=== PATIENT | female | born 1960 | race Caucasian/White ===

== ENCOUNTER 2019-11-29 12:31 | Outpatient (REF) | payer OTHER, SELFPAY | END 2019-11-29 12:32 | disposition home or self-care (01) | LOC: HO.LNP 12:31 | PROVIDERS: Visit Provider Podiatrist | DX: E10.42 Type 1 diabetes mellitus with diabetic polyneuropathy (principal); L97.512 Non-pressure chronic ulcer of other part of right foot with fat layer exposed | CPT/HCPCS: 87071; 87205 ==

== ENCOUNTER → 2019-12-11 10:28 | Outpatient (BNVA) | payer OTHER, SELFPAY | PROVIDERS: Visit Provider Internal Medicine | DX: Z76.89 Persons encountering health services in other specified circumstances (principal) ==

== ENCOUNTER → 2019-12-16 07:38 | Outpatient (BNVA) | payer OTHER, SELFPAY | PROVIDERS: Visit Provider Internal Medicine Endocrinology, Diabetes & Metabolism | DX: Z76.89 Persons encountering health services in other specified circumstances (principal) ==

== ENCOUNTER 2019-12-28 08:49 | Outpatient (REF) | payer OTHER, SELFPAY ==
--- NOTE | 2019-12-28 | XR_ITS ---
EXAMINATION: X-RAYS OF THE RIGHT FOOT AND ANKLE. CLINICAL INFORMATION: 59-year-old female patient with history of Charcot foot. Right foot pain. COMPARISON: X-ray of the right foot and ankle on 05/27/2019 and right foot on 11/10/2019. TECHNIQUE: 5 views of the right foot and ankle. FINDINGS: Again, there is diffuse soft tissue swelling of the distal right leg, ankle, and foot. Mature periosteal reaction parallels the distal shafts of the right tibia and fibula. Severe joint obliteration with marked hyperostosis and proliferative bone formation involves the midfoot and base of the metatarsals consistent with a Charcot foot. No acute osteolytic reaction is appreciated in either the foot or the ankle joint. XR/XR ankle RT min 3V IMPRESSION: Charcot foot.
--- NOTE | 2019-12-28 | XR_ITS ---
EXAMINATION: X-RAYS OF THE RIGHT FOOT AND ANKLE. CLINICAL INFORMATION: 59-year-old female patient with history of Charcot foot. Right foot pain. COMPARISON: X-ray of the right foot and ankle on 05/27/2019 and right foot on 11/10/2019. TECHNIQUE: 5 views of the right foot and ankle. FINDINGS: Again, there is diffuse soft tissue swelling of the distal right leg, ankle, and foot. Mature periosteal reaction parallels the distal shafts of the right tibia and fibula. Severe joint obliteration with marked hyperostosis and proliferative bone formation involves the midfoot and base of the metatarsals consistent with a Charcot foot. No acute osteolytic reaction is appreciated in either the foot or the ankle joint. XR/XR foot RT min 3V IMPRESSION: Charcot foot.
== END 2019-12-28 08:50 | disposition home or self-care (01) ==
LOC: HO.LAB 08:49
PROVIDERS: PCP Internal Medicine; Visit Provider Internal Medicine Endocrinology, Diabetes & Metabolism
DX: E11.610 Type 2 diabetes mellitus with diabetic neuropathic arthropathy (principal)
CPT/HCPCS: 73610; 73630

== ENCOUNTER 2020-02-27 10:35 | Outpatient (REF) | payer OTHER, SELFPAY ==
[2020-02-27 12:21] LABS: MANUAL DIFF FLAG NO
[2020-02-27 12:27] LABS: Basophils Percent Auto 0.3 % (0-2); Eosinophils Absolute Auto 0.3 X10*3/uL (0.0-0.4); Eosinophils Percent Auto 2.9 % (0-4); Hematocrit 31.6 % (37-47); Hemoglobin 9.9 g/dl (12.0-16.0); Imm Gran Abs Auto 0.08 X10*3/uL (0.00-0.03); Imm Gran Pct Auto 0.7 % (0.0-0.4); Lymphocytes Absolute Auto 2.7 X10*3/uL (1.2-4.9); Lymphocytes Percent Auto 24.7 % (20-40); Mean Corpuscular HGB Conc 31.3 g/dl (31.0-35.0); Mean Corpuscular Hemoglobin 26.7 pg (27.0-33.0); Mean Corpuscular Volume 85.2 fL (80-98); Mean Platelet Volume 9.6 fL (9.4-12.3); Monocytes Absolute Auto 0.6 X10*3/uL (0.1-1.2); Neutrophils Absolute Auto 7.3 X10*3/uL (2.0-8.3); Neutrophils Percent Auto 66.4 % (45-73); Platelet Count 555 X10*3/uL (160-400); Red Blood Count 3.71 X10*6/uL (4.20-5.50); Red Cell Distribution Width 14.1 % (11.0-16.0)
[2020-02-27 13:01] LABS: Alanine Aminotransferase 10 U/L (0-31); Albumin Level 3.9 g/dL (3.5-5.0); Alkaline Phosphatase 101 U/L (39-117); Anion Gap 14 (12-20); Aspartate Amino Transferase 12 U/L (5-31); Bilirubin Total 0.3 mg/dL (0.0-1.0); Blood Urea Nitrogen 28 mg/dL (9-16); Calcium 9.1 mg/dL (8.4-10.2); Carbon Dioxide 27 mmol/L (22-29); Chloride 105 mmol/L (96-108); Estimated Glomerular Filt Rate 41; Glucose Fasting 84 mg/dL (60-99); Potassium 4.7 mmol/l (3.3-5.1); Sodium 141 mmol/L (135-145)
[2020-02-27 13:06] LABS: Cholesterol 153 mg/dL; HDL Cholesterol 41 mg/dL; LDL Cholesterol Calculated 69 mg/dl; Triglycerides 217 mg/dL
[2020-02-27 13:07] LABS: Creatinine Urine 58.22 mg/dL
[2020-02-27 13:09] LABS: Creatinine Urine 58.73 mg/dL
[2020-02-27 13:23] LABS: Ferritin 103 ng/mL (10-250); Thyroid Stimulating Hormone 0.61 uIU/mL (0.32-4.0)
[2020-02-27 13:24] LABS: Protein/Creatinine Ratio, Ur 3.85 (<0.2); Total Protein Urine Random 226 mg/dL (<12)
[2020-02-27 13:28] LABS: Vitamin B12 1509 pg/mL (200-900)
[2020-02-27 13:50] LABS: Estimated Average Glucose 166 mg/dL; Hemoglobin A1c % 7.4 %
[2020-02-28 06:17] LABS: LDL Cholesterol Direct 73 mg/dL (<100)
== END 2020-02-27 10:36 | disposition home or self-care (01) ==
LOC: HO.LAB 10:35
PROVIDERS: Absent Provider Internal Medicine; PCP Internal Medicine; Visit Provider Internal Medicine Endocrinology, Diabetes & Metabolism
DX: Z00.01 Encounter for general adult medical examination with abnormal findings (principal); E11.65 Type 2 diabetes mellitus with hyperglycemia; E11.40 Type 2 diabetes mellitus with diabetic neuropathy, unspecified; E11.621 Type 2 diabetes mellitus with foot ulcer; E11.22 Type 2 diabetes mellitus with diabetic chronic kidney disease; I12.9 Hypertensive chronic kidney disease with stage 1 through stage 4 chronic kidney disease, or unspecified chronic kidney disease; N18.9 Chronic kidney disease, unspecified; D63.1 Anemia in chronic kidney disease
CPT/HCPCS: 36415; 80053; 80061; 82043; 82607; 82728; 83036; 83721; 84156; 84443; 85025

== ENCOUNTER → 2020-03-17 09:18 | Outpatient (BNVA) | payer OTHER, SELFPAY | PROVIDERS: PCP Internal Medicine; Referring Provider Internal Medicine; Visit Provider Internal Medicine Endocrinology, Diabetes & Metabolism ==

== ENCOUNTER → 2020-04-21 09:48 | Outpatient (BNVA) | payer OTHER, SELFPAY | PROVIDERS: PCP Internal Medicine; Visit Provider Internal Medicine ==

== ENCOUNTER 2020-05-27 10:42 | Outpatient (REF) | payer OTHER, SELFPAY ==
[2020-05-27 12:17] LABS: Alanine Aminotransferase 13 U/L (0-31); Albumin Level 3.8 g/dL (3.5-5.0); Alkaline Phosphatase 94 U/L (39-117); Anion Gap 12 (12-20); Aspartate Amino Transferase 14 U/L (5-31); Bilirubin Total 0.5 mg/dL (0.0-1.0); Blood Urea Nitrogen 29 mg/dL (9-16); Calcium 9.5 mg/dL (8.4-10.2); Carbon Dioxide 27 mmol/L (22-29); Chloride 106 mmol/L (96-108); Estimated Glomerular Filt Rate 40; Glucose Random 81 mg/dL (60-115); Potassium 5.1 mmol/L (3.3-5.1); Sodium 140 mmol/L (135-145)
[2020-05-27 14:25] LABS: Estimated Average Glucose 160 mg/dL; Hemoglobin A1c % 7.2 %
== END 2020-05-27 10:43 | disposition home or self-care (01) ==
LOC: HO.LAB 10:42
PROVIDERS: Absent Provider Internal Medicine Endocrinology, Diabetes & Metabolism; PCP Internal Medicine; Visit Provider Internal Medicine
DX: E11.22 Type 2 diabetes mellitus with diabetic chronic kidney disease (principal); I12.9 Hypertensive chronic kidney disease with stage 1 through stage 4 chronic kidney disease, or unspecified chronic kidney disease; E11.40 Type 2 diabetes mellitus with diabetic neuropathy, unspecified; E11.621 Type 2 diabetes mellitus with foot ulcer; N18.9 Chronic kidney disease, unspecified; D63.1 Anemia in chronic kidney disease; L97.509 Non-pressure chronic ulcer of other part of unspecified foot with unspecified severity
CPT/HCPCS: 36415; 80053; 83036

== ENCOUNTER → 2020-06-15 12:38 | Outpatient (BNVA) | payer OTHER, SELFPAY | PROVIDERS: PCP Internal Medicine; Visit Provider Internal Medicine Endocrinology, Diabetes & Metabolism | DX: E11.65 Type 2 diabetes mellitus with hyperglycemia (principal); E11.21 Type 2 diabetes mellitus with diabetic nephropathy; E11.319 Type 2 diabetes mellitus with unspecified diabetic retinopathy without macular edema; E11.40 Type 2 diabetes mellitus with diabetic neuropathy, unspecified; I10 Essential (primary) hypertension; E78.5 Hyperlipidemia, unspecified; E04.2 Nontoxic multinodular goiter | CPT/HCPCS: 82947 ==

== ENCOUNTER 2020-08-13 10:22 | Outpatient (REF) | payer OTHER, SELFPAY ==
[2020-08-13 11:37] LABS: MANUAL DIFF FLAG NO
[2020-08-13 11:49] LABS: Estimated Average Glucose 160 mg/dL; Hemoglobin A1c % 7.2 %
[2020-08-13 11:59] LABS: Alanine Aminotransferase 13 U/L (0-31); Albumin Level 3.8 g/dL (3.5-5.0); Alkaline Phosphatase 98 U/L (39-117); Anion Gap 15 (12-20); Aspartate Amino Transferase 17 U/L (5-31); Bilirubin Total 0.7 mg/dL (0.0-1.0); Blood Urea Nitrogen 34 mg/dL (9-16); Calcium 9.3 mg/dL (8.4-10.2); Carbon Dioxide 23 mmol/L (22-29); Chloride 107 mmol/L (96-108); Estimated Glomerular Filt Rate 41; Glucose Random 87 mg/dL (60-115); Potassium 4.7 mmol/L (3.3-5.1); Sodium 140 mmol/L (135-145); Total Protein 8.1 g/dL (6.5-8.0)
[2020-08-13 12:01] LABS: Basophils Percent Auto 0.3 % (0-2); Eosinophils Absolute Auto 0.2 X10*3/uL (0.0-0.4); Hematocrit 32.1 % (37-47); Hemoglobin 10.3 g/dl (12.0-16.0); Imm Gran Abs Auto 0.05 X10*3/uL (0.00-0.03); Imm Gran Pct Auto 0.5 % (0.0-0.4); Lymphocytes Absolute Auto 2.1 X10*3/uL (1.2-4.9); Lymphocytes Percent Auto 20.9 % (20-40); Mean Corpuscular HGB Conc 32.1 g/dl (31.0-35.0); Mean Corpuscular Hemoglobin 27.1 pg (27.0-33.0); Mean Corpuscular Volume 84.5 fL (80-98); Monocytes Absolute Auto 0.6 X10*3/uL (0.1-1.2); Monocytes Percent Auto 6.1 % (2-11); Neutrophils Absolute Auto 7.1 X10*3/uL (2.0-8.3); Neutrophils Percent Auto 70.2 % (45-73); Platelet Count 435 X10*3/uL (160-400); Red Cell Distribution Width 14.8 % (11.0-16.0); White Blood Count 10.1 X10*3/uL (4.8-10.8)
== END 2020-08-13 10:23 | disposition home or self-care (01) ==
LOC: HO.LAB 10:22
PROVIDERS: PCP Internal Medicine; Referring Provider Internal Medicine Endocrinology, Diabetes & Metabolism; Visit Provider Internal Medicine
DX: I12.9 Hypertensive chronic kidney disease with stage 1 through stage 4 chronic kidney disease, or unspecified chronic kidney disease (principal); N18.9 Chronic kidney disease, unspecified; D63.1 Anemia in chronic kidney disease; E11.22 Type 2 diabetes mellitus with diabetic chronic kidney disease; E11.621 Type 2 diabetes mellitus with foot ulcer; E11.40 Type 2 diabetes mellitus with diabetic neuropathy, unspecified; H61.22 Impacted cerumen, left ear
CPT/HCPCS: 36415; 80053; 83036; 85025

== ENCOUNTER 2020-08-19 18:29 | Inpatient (IN) | payer OTHER, SELFPAY ==
--- NOTE | ~2020-08-19 | XR_ITS ---
EXAMINATION: XR FOOT, RIGHT CLINICAL INFORMATION: Infection. COMPARISON: Right foot December 28, 2019. TECHNIQUE: AP, lateral, and oblique views of the right foot. FINDINGS: Stable chronic Charcot foot changes of the foot similar prior study of December 28, 2019. No acute abnormality. No bone destruction or abnormal periosteal reaction to suggest osteomyelitis. XR/XR foot RT 2V IMPRESSION: No radiographic evidence for osteomyelitis.
--- NOTE | ~2020-08-19 | US_ITS ---
EXAMINATION: BILATERAL LOWER EXTREMITY DUPLEX DOPPLER ARTERIAL EVALUATION. ALEXANDER. CLINICAL INFORMATION: Nonhealing right foot ulcer. COMPARISON: 09/30/2018 and 01/16/2018. TECHNIQUE: Real-time ultrasound and Doppler techniques (integrating B-mode 2D vascular images, Doppler spectral analysis and color flow Doppler imaging) were utilized to interrogate the lower extremities bilaterally. Attempted ABIs. FINDINGS: Within the right groin there is an enlarged lymph node measuring 4.5 x 2.0 x 4.7 cm in size but appears to have a normal fatty cleft and no definite cortical thickening is seen. RIGHT LOWER EXTREMITY: The right common femoral artery has a triphasic waveform with peak systolic velocity of 165 cm/s. The proximal profunda femoral artery has a biphasic waveform with peak systolic velocity of 67 cm/s. The proximal superficial femoral artery has a triphasic waveform with peak systolic velocity of 185 cm/s. The mid superficial femoral artery has a triphasic waveform with peak systolic velocity of 194 cm/s. The distal superficial femoral artery has a triphasic waveform with peak systolic velocity of 213 cm/s. The popliteal artery has a monophasic waveform with peak systolic velocity of 141 cm/s. The proximal peroneal artery has a monophasic waveform with peak systolic velocity of 139 cm/s. The distal posterior tibial artery has a monophasic waveform with peak systolic velocity of 87 cm/s. The proximal posterior tibial artery has a monophasic waveform with peak systolic velocity of 170 cm/s. LEFT LOWER EXTREMITY: Common femoral artery has a triphasic waveform with peak systolic velocity of 116 cm/s. The proximal profunda femoral artery has a biphasic waveform with peak systolic velocity of 81 cm/s. The proximal superficial femoral artery has a biphasic waveform with peak systolic velocity of 122 cm/s. The mid superficial femoral artery has a triphasic waveform with peak systolic velocity of 112 cm/s. The distal superficial femoral artery has a triphasic waveform with peak systolic velocity of 115 cm/s. The proximal popliteal artery has a biphasic waveform with peak systolic velocity of 69 cm/s. The proximal peroneal artery has a biphasic waveform with peak systolic velocity of 79 cm/s. The distal posterior tibial artery has a biphasic waveform with peak systolic velocity of 94 cm/s. The proximal posterior tibial artery has a biphasic waveform with peak systolic velocity of 104 cm/s. The ankle-brachial indices are limited in evaluation due to probable calcified vessels and elevated ankle pressures. Brachial artery pressure is 174 mmHg with only the right dorsalis pedis artery pressure being less than 200 mmHg and measuring 184 mmHg for a right-sided ALEXANDER of 1.06. US/US arterial duplex LE BI IMPRESSION: Inaccurate ABIs related to high ankle pressures probably related to calcified vessels. Elevated distal superficial femoral artery peak systolic velocity of greater than 200 mmHg consistent with hemodynamically significant stenosis. Bilateral calf runoff disease.
[2020-08-19 19:05] VITALS: BP 194/94; PULSE 96; RESP 18; TEMP 36.7; O2SAT 95; BMI 30.8
--- NOTE | 2020-08-19 20:14 | ED.GENADULT ---
HPI - General Adult General Chief complaint: General Medical Stated complaint: leg pain Time Seen by Provider: 08/19/20 20:13 Source: patient Limitations: no limitations History of Present Illness HPI narrative: this is a 51-year-old female with history of diabetes who has a known ulcer on the plantar aspect of her right foot. The patient was seen at wound clinic today and her foot was thought to be okay but the patient notes that she has had severe pain upon weight-bearing and feels like she cannot walk due to the pain. She denies any fever. The pain does radiate to her ankle. She has some chronic leg swelling but denies any acute change. She denies any chest pain or shortness of breath. The pain is aching, moderate in severity Related Data Home Medications Medication Instructions Recorded Confirmed atorvastatin 1 tab PO DAILY 08/19/20 08/19/20 ferrous sulfate 1 tab PO DAILY 08/19/20 08/19/20 flash glucose sensor [FreeStyle 08/19/20 08/19/20 Amber 14 Day Sensor] furosemide 1 tab PO BID 08/19/20 08/19/20 insulin glargine U-300 conc 48 unit SUBCUT DAILY 08/19/20 08/19/20 [[place] SoloStar U-300 Insulin] insulin lispro [Humalog KwikPen See Protocol SUBCUT TIDAC 08/19/20 08/19/20 Insulin] irbesartan 1 tab PO DAILY 08/19/20 08/19/20 pen needle, diabetic [BD Adela 2nd 08/19/20 08/19/20 Gen Pen Needle] Allergies Allergy/AdvReac Type Severity Reaction Status Date / Time amlodipine [From NORVASC] Allergy Mild SWELLING Verified 08/19/20 19:05 Cephalosporins Allergy Mild RASH Verified 08/19/20 19:05 [CEPHALOSPORINS] Penicillins Allergy Mild RASH Verified 08/19/20 19:05 Erythromycin Allergy Unknown Unknown Verified 08/19/20 19:05 clindamycin [CLINDAMYCIN] AdvReac Intermediate DIARRHEA Verified 08/19/20 19:05 NephrAmine Allergy Unknown swelling Uncoded 05/29/19 00:00 Review of Systems Review of Systems: Yes all other systems are reviewed and are negative Constitutional: Constitutional: Reports as per HPI and Denies fever(s) Eyes: Eyes: Reports as per HPI and Reports no additional eye complaints ENT: Reports system reviewed and no additional complaints, except as documented, Reports as per HPI, Denies nasal congestion, Denies nasal discharge and Denies sore throat Cardiovascular: Cardiovascular: Reports as per HPI, Denies chest pain and Denies dyspnea Respiratory: Respiratory: Reports as per HPI, Denies cough and Denies dyspnea Gastrointestinal: Gastrointestinal: Reports as per HPI, Denies abdominal pain, Denies diarrhea and Denies vomiting Genitourinary: Genitourinary: Reports as per HPI, Denies hematuria, Denies urinary frequency and Denies dysuria Musculoskeletal: Musculoskeletal: Reports no additional musculoskeletal complaints and Denies numbness Comments: right foot swelling but without significant erythema. Ulcer to the plantar aspect with malodorous discharge, the packing strip in place. Discharge expressible by pressure around the wound. Integumentary/Breasts: Skin/Breast: Reports as per HPI and Denies rash Neurologic: Reports as per HPI, Denies focal weakness, Denies numbness and Denies Sensory deficit (Neuro) Psychiatric: Psychiatric: Reports no additional psychiatric complaints and Reports as per HPI Endocrine: Endocrine: Reports no additional endocrine complaints and Reports as per HPI Hematologic/Lymphatic: Hematologic/Lymphatic: Reports no additional hematologic/lymphatic complaints, Reports as per HPI and Reports other (No peripheral edema) [facility]LY [facility] Past Medical History Medical History Diabetes type 2, uncontrolled Diabetic nephropathy associated with type 2 diabetes mellitus Diabetic neuropathy associated with type 2 diabetes mellitus Diabetic retinopathy associated with type 2 diabetes mellitus Dyslipidemia Foot osteomyelitis, right 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 senior care (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 insulin Non-toxic multinodular goiter Surgical History Hx of eye surgery Hx of foot surgery Family History Family History Father COPD (chronic obstructive pulmonary disease) Diabetes Mother Heart disease Social History Social History Household Members: None Smoked in Last 30 Days: No Use of substances other than those prescribed or required for medical reasons: No Advance Directives: No Advance Directives Information Provided: No Patient : No Physical Exam Vital Signs: Vital Signs: Last Vital Signs Temp 97.6 F 08/19/20 23:21 Pulse 75 08/19/20 23:21 Resp 18 08/19/20 23:21 BP 182/69 H 08/19/20 23:21 Pulse Ox 98 08/19/20 23:21 Body Mass Index 30.8 Const: General: cooperative, no acute distress and alert Orientation/consciousness: patient oriented x3 HENMT: Head: Yes normal to inspection Eyes: General: appearance normal, both eyes and all related structures Eyelids: Yes eyelids normal Conjunctivae: conjunctivae normal Pupils: Equal, round and reactive pupils present Neck: Neck: Yes normal visual inspection and Yes supple Chest: Chest palpation & inspection: normal inspection of the chest Resp: Effort & Inspection: normal respiratory effort Auscultation: clear to auscultation bilaterally Cardio: Rate: regular rate Rhythm: regular rhythm Heart sounds: S1 normal heart sound present, S2 normal heart sound present, no gallops, no murmurs and no rubs GI: Palpation (GI): Soft to palpation, nontender and Other GI palpation findings present (Non-distended) Auscultation: normal bowel sounds Skin: General skin exam: no rashes or lesions noted Neuro: General: patient oriented x3, no focal motor deficits and CN's II-XI intact bilaterally Cranial nerves: Yes Equal, round and reactive pupils present Cognition (Neuro): normal cognition Motor exam (neuro): 5/5 motor strength present throughout Sensory Exam: No Sensory deficit (Neuro) Extrem: General: Yes normal to inspection and Yes no pedal edema Right lower extremity: foot ( Right plantar foot with approximately 1 x 2 in ulcer with malodorous) Details: other ( Discharge. A saturated packing strip is in place. There is mild general swelling to the foot but no erythema or warmth. Dorsalis pedis pulse normal) Psych: Appearance: grossly normal Affect: normal affect Medical Decision Making MDM Narrative Medical decision making narrative: Patient with increasing pain to her right foot, has an ulcer to the plantar aspect with malodorous discharge. Patient is afebrile, nontoxic. White count only mildly elevated. Nonetheless given that her difficulty ambulating, I believe admission to the hospital for observation and starting IV antibiotics, surgical consult is warranted. Lab Data Result diagrams: 08/19/20 21:32 08/19/20 21:32 Labs: Lab Results 07/07/21 07/07/21 Range/Units 21:32 21:32 WBC 11.7 H (4.8-10.8) X10*3/uL RBC 3.25 L (4.20-5.50) X10*6/uL Hgb 9.0 L (12.0-16.0) g/dl Hct 27.3 L (37-47) % MCV 84.0 (80-98) fL MCH 27.7 (27.0-33.0) pg MCHC 33.0 (31.0-35.0) g/dl RDW 14.4 (11.0-16.0) % Plt Count 336 (160-400) X10*3/uL MPV 9.7 (9.4-12.3) fL Immature Gran % (Auto) 0.3 (0.0-0.4) % Neut % (Auto) 76.8 H (45-73) % Lymph % (Auto) 12.9 L (20-40) % [place] % (Auto) 8.3 (2-11) % Eos % (Auto) 1.4 (0-4) % Baso % (Auto) 0.3 (0-2) % Lymph # (Auto) 1.5 (1.2-4.9) X10*3/uL [place] # (Auto) 1.0 (0.1-1.2) X10*3/uL Eos # (Auto) 0.2 (0.0-0.4) X10*3/uL Baso # (Auto) 0.0 (0.0-0.2) X10*3/uL Abs Immat Gran (auto) 0.04 H (0.00-0.03) X10*3/uL Absolute Neuts (auto) 9.0 H (2.0-8.3) X10*3/uL Absolute Nucleated RBC 0.000 (0.0-0.012) X10*3/uL Nucleated RBC % (auto) 0.0 (0.0-0.2) /100WBC Sodium 139 (135-145) mmol/L Potassium 5.2 H (3.3-5.1) mmol/L Chloride 106 (96-108) mmol/L Carbon Dioxide 23 (22-29) mmol/L Anion Gap 15 (12-20) BUN 38 H (9-16) mg/dL Creatinine 1.63 H (0.5-1.4) mg/dL Estim Creat Clear Calc 41.7 Estimated GFR 32 Random Glucose 163 H D (60-115) mg/dL Calcium 8.9 (8.4-10.2) mg/dL Total Bilirubin 0.5 (0.0-1.0) mg/dL AST 17 (5-31) U/L ALT 16 (0-31) U/L Alkaline Phosphatase 94 (39-117) U/L Total Protein 7.4 (6.5-8.0) g/dL Albumin 3.4 L (3.5-5.0) g/dL Imaging Data foot: Radiologist's impression: x-ray of the right foot as read by the radiologist showed no evidence of osteomyelitis Discharge Plan Discharge Clinical Impression: Diabetic foot ulcer Patient Disposition: Admitted as Observation
[2020-08-19 21:37] LABS: MANUAL DIFF FLAG NO
[2020-08-19 21:38] LABS: Basophils Percent Auto 0.3 % (0-2); Eosinophils Absolute Auto 0.2 X10*3/uL (0.0-0.4); Eosinophils Percent Auto 1.4 % (0-4); Hematocrit 27.3 % (37-47); Imm Gran Abs Auto 0.04 X10*3/uL (0.00-0.03); Imm Gran Pct Auto 0.3 % (0.0-0.4); Lymphocytes Absolute Auto 1.5 X10*3/uL (1.2-4.9); Lymphocytes Percent Auto 12.9 % (20-40); Mean Corpuscular Hemoglobin 27.7 pg (27.0-33.0); Mean Platelet Volume 9.7 fL (9.4-12.3); Monocytes Percent Auto 8.3 % (2-11); Neutrophils Percent Auto 76.8 % (45-73); Platelet Count 336 X10*3/uL (160-400); Red Blood Count 3.25 X10*6/uL (4.20-5.50); Red Cell Distribution Width 14.4 % (11.0-16.0); White Blood Count 11.7 X10*3/uL (4.8-10.8)
[2020-08-19 21:54] VITALS: BP 157/63; PULSE 69; RESP 18; TEMP 36.3; O2SAT 99
[2020-08-19 22:08] LABS: Alanine Aminotransferase 16 U/L (0-31); Albumin Level 3.4 g/dL (3.5-5.0); Alkaline Phosphatase 94 U/L (39-117); Anion Gap 15 (12-20); Aspartate Amino Transferase 17 U/L (5-31); Bilirubin Total 0.5 mg/dL (0.0-1.0); Blood Urea Nitrogen 38 mg/dL (9-16); Calcium 8.9 mg/dL (8.4-10.2); Carbon Dioxide 23 mmol/L (22-29); Chloride 106 mmol/L (96-108); Creatinine Clr Calc Pharmacy 41.7; Estimated Glomerular Filt Rate 32; Glucose Random 163 mg/dL (60-115); Potassium 5.2 mmol/L (3.3-5.1); Sodium 139 mmol/L (135-145); Total Protein 7.4 g/dL (6.5-8.0)
[2020-08-19 23:21] VITALS: BP 182/69; PULSE 75; RESP 18; TEMP 36.4; O2SAT 98
--- NOTE | 2020-08-19 23:24 | P.HPHOSP_ITS ---
History of Present Illness Date of Service: 08/19/20 Chief Complaint: diabetic foot ulcer 59-year-old female with a past medical history of hypertension, hyperlipidemia, diabetes, history of diabetic foot ulcer, history of right foot osteomyelitis; presents today with a chief complaint of right foot ulcer on the plantar surface of the foot has been having increased pain and mild surrounding erythema since last Monday, limiting her ambulation; decided to come to the ER for further evaluation. Patient reported having chills. Denies any discharge. Reports that she has chronic open wound on the right foot plantar site, open wound, regularly follows with the wound clinic. Patient mentioned that she has allergies to penicillin, cephalosporins, clindamycin but took vancomycin and Levaquin in the past. patient reports that she takes Lasix for peripheral edema. Denies any urinary complaints or GI symptoms. Denies any chest pain palpitations lightheadedness or dizziness. Review of all other systems is negative except mentioned above ER course: Per ER team patient noted to have ulcer which is tender on the plantar surface of the right foot, labs noted to have mild AKA. Admitted for further management. 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 Non-toxic multinodular goiter Family History Father COPD (chronic obstructive pulmonary disease) Diabetes Mother Heart disease Surgical History Hx of eye surgery Hx of foot surgery Social History Household Members: None Housing: House Do you presently have visiting nurse or other home services: No Patient Tobacco Use Status: Never used Tobacco service: No Current occupational status: employed Meds Allergies Allergy/AdvReac Type Severity Reaction Status Date / Time amlodipine [From NORVASC] Allergy Mild SWELLING Verified 08/19/20 19:05 Cephalosporins Allergy Mild RASH Verified 08/19/20 19:05 [CEPHALOSPORINS] Penicillins Allergy Mild RASH Verified 08/19/20 19:05 Erythromycin Allergy Unknown Unknown Verified 08/19/20 19:05 clindamycin [CLINDAMYCIN] AdvReac Intermediate DIARRHEA Verified 08/19/20 19:05 NephrAmine Allergy Unknown swelling Uncoded 05/29/19 00:00 Active Medications: Current Medications Generic Name Dose Route Start Last Admin Trade Name Freq PRN Reason Stop Dose Admin Acetaminophen 650 mg 08/19/20 23:13 Acetaminophen 325 Mg Tablet PO Q6H PRN Pain, Mild (Pain Scale 1-3) Heparin Sodium (Porcine) 5,000 unit 08/20/20 06:00 Heparin Sodium,Porcine 5,000 Unit/Ml Vial SUBCUT Q8H [facility] Insulin Human Lispro 0 unit 08/20/20 07:30 Insulin Lispro 100 Unit/Ml 3 Ml Vial SUBCUT QIDACHS [facility] Protocol Magnesium Hydroxide 30 ml 08/19/20 23:13 Milk Of Magnesia 30 Ml Oral.Susp PO DAILY PRN Constipation Melatonin 6 mg 08/19/20 23:13 Melatonin 3 Mg Tablet PO BEDTIME PRN Insomnia Oxycodone HCl 5 mg 08/19/20 23:13 Oxycodone Hcl Immed Release 5 Mg Tablet PO Q6H PRN Pain, Severe (Pain Scale 7-10) Sodium Chloride 3 ml 08/20/20 00:00 0.9 % Sodium Chloride Flush 3 Ml Syringe IVFLUSH QSHIFT [facility] Home Medications Medication Instructions Recorded Confirmed Last Taken Type FreeStyle Amber 14 Day Sensor 08/19/20 08/19/20 Unknown History Humalog KwikPen Insulin See Protocol SUBCUT TIDAC 08/19/20 08/19/20 Unknown History [place] SoloStar U-300 Insulin 48 unit SUBCUT DAILY 08/19/20 08/19/20 Unknown History atorvastatin 1 tab PO DAILY 08/19/20 08/19/20 Unknown History ferrous sulfate 1 tab PO DAILY 08/19/20 08/19/20 Unknown History furosemide 1 tab PO BID 08/19/20 08/19/20 Unknown History irbesartan 1 tab PO DAILY 08/19/20 08/19/20 Unknown History pen needle, diabetic [BD Adela 2nd 08/19/20 08/19/20 Unknown History Gen Pen Needle] Physical Exam Vital Signs and Narrative: Vital Signs: Last Vital Signs Temp 97.4 F 08/19/20 21:54 Pulse 69 08/19/20 21:54 Resp 18 08/19/20 21:54 BP 157/63 H 08/19/20 21:54 Pulse Ox 99 08/19/20 21:54 Body Mass Index 30.8 Gen: Appears be in no acute distress HEENT: NCAT, Moist mucosa. Pulmonary: Vesicular breath sounds, fair air entry CVS: Normal S1-S2 Abdomen: BS+, Soft, Nontender Extremities: Warm well perfused ; noted to have right foot plantar surface ulcer, mild surrounding erythema, tender on palpation, no discharge, open ulcer, small skin tag noted around ulcer; no discharge noted; patient does peripheral edema positive on legs bilaterally Neuro: Alert and awake. Results Labs CBC and Chem 7: 08/26/20 06:28 08/26/20 06:28 Labs: Laboratory Results - last 24 hr 08/19/20 08/19/20 21:32 21:32 MCV 84.0 MCH 27.7 MCHC 33.0 RDW 14.4 Plt Count 336 MPV 9.7 Immature Gran % (Auto) 0.3 Neut % (Auto) 76.8 H Lymph % (Auto) 12.9 L [place] % (Auto) 8.3 Eos % (Auto) 1.4 Baso % (Auto) 0.3 Lymph # (Auto) 1.5 [place] # (Auto) 1.0 Eos # (Auto) 0.2 Baso # (Auto) 0.0 Abs Immat Gran (auto) 0.04 H Absolute Neuts (auto) 9.0 H Absolute Nucleated RBC 0.000 Nucleated RBC % (auto) 0.0 Anion Gap 15 Estim Creat Clear Calc 41.7 Estimated GFR 32 Random Glucose 163 H D Calcium 8.9 Total Bilirubin 0.5 AST 17 ALT 16 Alkaline Phosphatase 94 Total Protein 7.4 Albumin 3.4 L Imaging Radiologist's Impressions: Impressions Foot X-Ray 08/19/20 21:05 IMPRESSION: No radiographic evidence for osteomyelitis. Assessment and Plan (1) Diabetic foot ulcer: Status: Deleted 59-year-old female with a past medical history of hypertension, hyperlipidemia, diabetes, history of right foot osteomyelitis,diabetic foot ulcer presented to the hospital with a chief complaint of increased pain on 100 chronic diabetic foot ulcer / mild erythema /limiting ambulation. Noted to have mild cellulitis around the ulcer. Admitted for further management. Acute on chronic diabetic foot ulcer/cellulitis: Continue IV vancomycin. Will keep the patient on Levaquin as the patient is allergic to penicillins and cephalosporins. will consult ID and General surgery for further recommendations. X-ray showed no acute findings/osteomyelitis. No crepitus on exam noted. Pain control PT/OT eventually Mild VENKATESH: Gentle IV fluids. Avoid nephrotoxins. history of diabetes: Will keep the patient on Lantus 20 units at bedtime( takes 48 units at home) and insulin sliding scale for all other chronic conditions, home medications will be continued DVT prophylaxis: Subcu heparin Code status: Full code Quality Stroke Does the patient have a stroke diagnosis?: No VTE Prior VTE?: No VTE Risk Level:: Medical - moderate - high VTE Device Contraindication: Patient Refused VTE Drug Contraindication: N/A - Med Ordered
[2020-08-19 23:51] LABS: COVID-19 Test Negative (Negative); IDNOW Serial# 9DD0AD1C
[2020-08-20] VITALS (7 sets, daily range): BP systolic 133–199; BP diastolic 55–81; PULSE 58–76; RESP 13–18; TEMP 35.6–36.3; O2SAT 96–98
--- NOTE | 2020-08-20 00:01 | PC.NURSE ---
attempted to contact hospitalist regarding need for BC prior to adminsitering vanyco. No answer. will hold until contact is made.
--- NOTE | 2020-08-20 00:17 | PC.NURSE ---
2nd attempt to contact hospitalist regarding blood cultures prior to vanco administration. No answer. Continuing to monitor at this time.
--- NOTE | 2020-08-20 00:34 | PC.NURSE ---
chronic wound on right sole of foot began leaking purulent white drainage, then blood, Wound appears to be approximately 7cm by 4cm. Pt reports moderate pain at sight. Attempted to call hospitalist regarding foot pain and the need for blood cultures. No answer. Will continue to monitor.
--- NOTE | 2020-08-20 00:38 | PC.NURSE ---
attempted to call report. rn off floor.
--- NOTE | 2020-08-20 00:53 | PC.NURSE ---
attempted to give report. rn is off floor.
[2020-08-20] MEDS: Melatonin 3 MG TABLET 6 MG PO ×2 (01:58→21:52)
[2020-08-20] MEDS: Acetaminophen 325 MG TABLET 650 MG PO (01:58)
[2020-08-20] MEDS: 0.9 % Sodium Chloride 1,000 ML 75 ML IVCONT (02:00)
[2020-08-20] MEDS: 0.9 % Sodium Chloride Flush 3 ML SYRINGE IVFLUSH ×2 (02:01→20:56)
[2020-08-20] MEDS: vancomycin HCL 1,000 MG in 0.9 % Sodium Chloride 250 ML 270 MG IV (02:01)
[2020-08-20 05:55] LABS: MANUAL DIFF FLAG NO
[2020-08-20 06:03] LABS: Basophils Percent Auto 0.2 % (0-2); Eosinophils Absolute Auto 0.2 X10*3/uL (0.0-0.4); Eosinophils Percent Auto 2.3 % (0-4); Hematocrit 26.5 % (37-47); Hemoglobin 8.5 g/dl (12.0-16.0); Imm Gran Abs Auto 0.05 X10*3/uL (0.00-0.03); Imm Gran Pct Auto 0.6 % (0.0-0.4); Lymphocytes Absolute Auto 1.5 X10*3/uL (1.2-4.9); Lymphocytes Percent Auto 17.1 % (20-40); Mean Corpuscular HGB Conc 32.1 g/dl (31.0-35.0); Mean Corpuscular Hemoglobin 27.3 pg (27.0-33.0); Mean Corpuscular Volume 85.2 fL (80-98); Mean Platelet Volume 9.6 fL (9.4-12.3); Monocytes Absolute Auto 0.7 X10*3/uL (0.1-1.2); Monocytes Percent Auto 8.2 % (2-11); Neutrophils Absolute Auto 6.5 X10*3/uL (2.0-8.3); Neutrophils Percent Auto 71.6 % (45-73); Platelet Count 334 X10*3/uL (160-400); Red Blood Count 3.11 X10*6/uL (4.20-5.50); Red Cell Distribution Width 14.5 % (11.0-16.0)
[2020-08-20 06:29] LABS: Magnesium 2.1 mg/dL (1.6-2.6)
[2020-08-20 06:37] LABS: Anion Gap 12 (12-20); Blood Urea Nitrogen 32 mg/dL (9-16); Calcium 8.6 mg/dL (8.4-10.2); Carbon Dioxide 24 mmol/L (22-29); Chloride 107 mmol/L (96-108); Creatinine Clr Calc Pharmacy 47.2; Estimated Glomerular Filt Rate 37; Glucose Random 162 mg/dL (60-115); Potassium 4.8 mmol/L (3.3-5.1); Sodium 138 mmol/L (135-145)
[2020-08-20 07:23] LABS: Glucose, Whole Blood 148 mg/dL (60-115)
[2020-08-20] MEDS: Valsartan 160 MG TABLET PO (07:40)
[2020-08-20] MEDS: Insulin Glargine,Hum.rec.anlog 100 UNIT/ML 10 ML VIAL 15 UNIT SUBCUT (07:40)
[2020-08-20] MEDS: Atorvastatin Calcium 20 MG TABLET PO (07:40)
--- NOTE | 2020-08-20 09:58 | HO.PM.IMPN ---
Subjective Subjective Date of Service: 08/20/20 Interval History: foot pain Cardiovascular Cardiovascular: Reports no additional cardiovascular complaints Gastrointestinal Gastrointestinal: Reports no additional gastrointestinal complaints Physical Exam Vital Signs: Vital Signs: Last Vital Signs Temp 97.4 F 08/20/20 07:13 Pulse 62 08/20/20 07:13 Resp 18 08/20/20 07:13 BP 148/70 H 08/20/20 07:13 Pulse Ox 98 08/20/20 07:13 Body Mass Index 30.8 General: AO X 3, no acute distress Resp: CTA bilateral CVS: S1,S2,RRR GI: soft, non tender, non distended Neuro: motor grossly intact Psych: appropriate affect right plantar ulcer Objective Data Current Medications Generic Name Dose Route Start Last Admin Trade Name Freq PRN Reason Stop Dose Admin Acetaminophen 650 mg 08/19/20 23:13 08/20/20 01:58 Acetaminophen 325 Mg Tablet PO 650 mg Q6H PRN Administration Pain, Mild (Pain Scale 1-3) Atorvastatin Calcium 20 mg 08/20/20 09:00 08/20/20 07:40 Atorvastatin Calcium 20 Mg Tablet PO 20 mg DAILY [facility] Administration Heparin Sodium (Porcine) 5,000 unit 08/20/20 06:00 08/20/20 05:39 Heparin Sodium,Porcine 5,000 Unit/Ml Vial SUBCUT Not Given Q8H [facility] Sodium Chloride 1,000 mls @ 75 mls/hr 08/19/20 23:30 08/20/20 02:00 Ns IVCONT 75 mls/hr .[id number] [facility] Administration Vancomycin HCl 750 mg/ Sodium 265 mls @ 265 mls/hr 08/20/20 14:00 Chloride IV Q12H [facility] Insulin Glargine 15 unit 08/20/20 09:00 08/20/20 07:40 Insulin Glargine,Hum.Rec.Anlog 100 Unit/Ml 10 Ml Vial SUBCUT 15 unit DAILY [facility] Administration Insulin Human Lispro 0 unit 08/20/20 07:30 08/20/20 07:30 Insulin Lispro 100 Unit/Ml 3 Ml Vial SUBCUT Not Given QIDACHS [facility] Protocol Magnesium Hydroxide 30 ml 08/19/20 23:13 Milk Of Magnesia 30 Ml Oral.Susp PO DAILY PRN Constipation Melatonin 6 mg 08/19/20 23:13 08/20/20 01:58 Melatonin 3 Mg Tablet PO 6 mg BEDTIME PRN Administration Insomnia Oxycodone HCl 5 mg 08/19/20 23:13 Oxycodone Hcl Immed Release 5 Mg Tablet PO Q6H PRN Pain, Severe (Pain Scale 7-10) Pharmacy Consult 1 each 08/19/20 23:21 Consult Rx Vancomycin Dosing MISCELLANE DAILY PRN Consult order Pharmacy Consult 1 each 08/19/20 23:51 Consult Rx Perform Med Rec MISCELLANE ONCE PRN Consult order Sodium Chloride 3 ml 08/20/20 00:00 08/20/20 07:30 0.9 % Sodium Chloride Flush 3 Ml Syringe IVFLUSH Not Given QSHIFT [facility] Valsartan 160 mg 08/20/20 09:00 08/20/20 07:40 Valsartan 160 Mg Tablet PO 160 mg DAILY [facility] Administration Labs CBC & Chem 7: 08/20/20 05:46 08/20/20 05:46 Labs: Laboratory Results - last 24 hr 08/19/20 08/19/20 08/19/20 21:32 21:32 23:29 WBC 11.7 H RBC 3.25 L Hgb 9.0 L Hct 27.3 L MCV 84.0 MCH 27.7 MCHC 33.0 RDW 14.4 Plt Count 336 MPV 9.7 Immature Gran % (Auto) 0.3 Neut % (Auto) 76.8 H Lymph % (Auto) 12.9 L Donley % (Auto) 8.3 Eos % (Auto) 1.4 Baso % (Auto) 0.3 Lymph # (Auto) 1.5 Donley # (Auto) 1.0 Eos # (Auto) 0.2 Baso # (Auto) 0.0 Abs Immat Gran (auto) 0.04 H Absolute Neuts (auto) 9.0 H Absolute Nucleated RBC 0.000 Nucleated RBC % (auto) 0.0 Sodium 139 Potassium 5.2 H Chloride 106 Carbon Dioxide 23 Anion Gap 15 BUN 38 H Creatinine 1.63 H Estim Creat Clear Calc 41.7 Estimated GFR 32 POC Glucose Random Glucose 163 H D Calcium 8.9 Magnesium Total Bilirubin 0.5 AST 17 ALT 16 Alkaline Phosphatase 94 Total Protein 7.4 Albumin 3.4 L COVID-19 ([facility]) Negative COVID-19 Clin Com See Note 08/20/20 08/20/20 08/20/20 05:46 05:46 05:46 WBC 9.0 RBC 3.11 L Hgb 8.5 L Hct 26.5 L MCV 85.2 MCH 27.3 MCHC 32.1 RDW 14.5 Plt Count 334 MPV 9.6 Immature Gran % (Auto) 0.6 H Neut % (Auto) 71.6 Lymph % (Auto) 17.1 L Donley % (Auto) 8.2 Eos % (Auto) 2.3 Baso % (Auto) 0.2 Lymph # (Auto) 1.5 Donley # (Auto) 0.7 Eos # (Auto) 0.2 Baso # (Auto) 0.0 Abs Immat Gran (auto) 0.05 H Absolute Neuts (auto) 6.5 Absolute Nucleated RBC 0.000 Nucleated RBC % (auto) 0.0 Sodium 138 Potassium 4.8 Chloride 107 Carbon Dioxide 24 Anion Gap 12 BUN 32 H Creatinine 1.44 H Estim Creat Clear Calc 47.2 Estimated GFR 37 POC Glucose Random Glucose 162 H Calcium 8.6 Magnesium 2.1 Total Bilirubin AST ALT Alkaline Phosphatase Total Protein Albumin COVID-19 ([facility]) COVID-19 Clin Com 08/20/20 07:16 WBC RBC Hgb Hct MCV MCH MCHC RDW Plt Count MPV Immature Gran % (Auto) Neut % (Auto) Lymph % (Auto) Donley % (Auto) Eos % (Auto) Baso % (Auto) Lymph # (Auto) Donley # (Auto) Eos # (Auto) Baso # (Auto) Abs Immat Gran (auto) Absolute Neuts (auto) Absolute Nucleated RBC Nucleated RBC % (auto) Sodium Potassium Chloride Carbon Dioxide Anion Gap BUN Creatinine Estim Creat Clear Calc Estimated GFR POC Glucose 148 H Random Glucose Calcium Magnesium Total Bilirubin AST ALT Alkaline Phosphatase Total Protein Albumin COVID-19 ([facility]) COVID-19 Clin Com Microbiology Microbiology Results: Microbiology 08/19/20 21:16 Gram Stain - Final Foot Right Quality Stroke Does the patient have a stroke diagnosis?: No VTE Prior VTE?: No VTE Risk Level:: Medical - moderate - high VTE Device Contraindication: Patient Refused VTE Drug Contraindication: N/A - Med Ordered Assessment and Plan (1) Diabetic foot ulcer: Status: Acute Assessment and Plan: 59F presented with worsening right plantar ulcer Acute on chronic diabetic foot ulcer/cellulitis continue vanc ID, surgical eval VENKATESH on CKD gently hydration, monitor DM insulin
[2020-08-20 11:26] LABS: Glucose, Whole Blood 212 mg/dL (60-115)
[2020-08-20] MEDS: Insulin Lispro 100 UNIT/ML 3 ML VIAL SUBCUT ×3 (11:51→20:55)
[2020-08-20] MEDS: oxyCODONE HCl Immed Release 5 MG TABLET PO ×2 (11:51→21:51)
--- NOTE | 2020-08-20 12:11 | MHC.CM.PN ---
EMR REVIEWED. PT ADMITTED W/DIABETIC FOOT ULCER, PT TO BE SEEN BY ID AND SURGICAL, PT USES [facility] FOR CHRONIC PLANTAR WOUND Q2WKS AND NEXT APPT IS 09/01/2020 1:15PM. PT REPORTS RECENTLY SWITCHING FROM [facility] TO BI [facility] APPTS. CM MET W/PT WHO IS A&O X4, PT REPORTS SHE WORKS [employer] AT [employer] A [employer], LIVES ALONE, HAS NO DME OTHER THAN DIABETIC SUPPLIES AND A CANE, NO HOME SERVICES, PT VERIFIES PCP AND PT REPORTS SHE HAS A HCP AND BELIEVES IT IS HER DTR, COPY HAS BEEN REQUESTED BY CM. D/C PLAN: HOME SELF-CARE & RESUMP OF [facility], SON TO TRANSPORT AFTER 4PM
[2020-08-20] MEDS: vancomycin HCL 750 MG in 0.9 % Sodium Chloride 250 ML 265 MG IV (13:01)
--- NOTE | 2020-08-20 14:20 | PC.NURSE ---
Skin/Wound assessment completed today. Patient has a chronic right plantar foot diabetic ulcer. Measures 2.4 x 0.5 x 1.0. is red, warm and swollen around the area and medial ankle. Treating with AG Alginate. Vascular surgery consulted. No other skin issues found.
[2020-08-20 16:14] LABS: Glucose, Whole Blood 173 mg/dL (60-115)
[2020-08-20 20:23] LABS: Glucose, Whole Blood 187 mg/dL (60-115)
[2020-08-21] VITALS (7 sets, daily range): BP systolic 157–196; BP diastolic 67–82; PULSE 59–68; RESP 15–18; TEMP 35.8–36.7; O2SAT 95–99
[2020-08-21] MEDS: vancomycin HCL 750 MG in 0.9 % Sodium Chloride 250 ML 265 MG IV (01:26)
[2020-08-21] MEDS: 0.9 % Sodium Chloride 1,000 ML 75 ML IVCONT (05:40)
[2020-08-21 06:05] LABS: Hemoglobin 8.1 g/dl (12.0-16.0); Mean Corpuscular HGB Conc 31.2 g/dl (31.0-35.0); Mean Corpuscular Hemoglobin 26.6 pg (27.0-33.0); Mean Corpuscular Volume 85.5 fL (80-98); Mean Platelet Volume 9.6 fL (9.4-12.3); Platelet Count 315 X10*3/uL (160-400); Red Blood Count 3.04 X10*6/uL (4.20-5.50); Red Cell Distribution Width 14.2 % (11.0-16.0); White Blood Count 8.1 X10*3/uL (4.8-10.8)
[2020-08-21 06:30] LABS: Anion Gap 13 (12-20); Blood Urea Nitrogen 27 mg/dL (9-16); Calcium 8.3 mg/dL (8.4-10.2); Carbon Dioxide 21 mmol/L (22-29); Chloride 109 mmol/L (96-108); Creatinine Clr Calc Pharmacy 52.3; Estimated Glomerular Filt Rate 42; Glucose Fasting 120 mg/dL (60-99); Potassium 4.6 mmol/L (3.3-5.1); Sodium 138 mmol/L (135-145)
[2020-08-21 07:39] LABS: Glucose, Whole Blood 118 mg/dL (60-115)
[2020-08-21] MEDS: Atorvastatin Calcium 20 MG TABLET PO (07:50)
[2020-08-21] MEDS: Valsartan 160 MG TABLET PO (07:50)
[2020-08-21] MEDS: Insulin Glargine,Hum.rec.anlog 100 UNIT/ML 10 ML VIAL 15 UNIT SUBCUT (07:50)
[2020-08-21] MEDS: oxyCODONE HCl Immed Release 5 MG TABLET PO (07:50)
--- NOTE | 2020-08-21 09:49 | P.CONGS_ITS ---
History of Present Illness Consult details Consult date: 08/21/20 Narrative: Very pleasant 59-year-old [place] diabetic female well known to me presented to the hospital for acute onset right lower extremity pain. Of note she has right lower extremity Charcot foot. She has had prior endovascular intervention and debridement. Most recently she was treated at [facility] by Dr. Fried for removal of hardware from the foot. She had a significant bleeding episode after that. At some point I do believe Dr. Melton was involved with ligation of a vessel. She now presents to us for vascular evaluation. Review of Systems 2 Review of Systems: Yes all other systems are reviewed and are negative Constitutional: Constitutional: Reports no additional constitutional complaints ENT: Reports Normal hearing present Cardiovascular: Cardiovascular: Denies chest pain, Denies chest pain at rest, Denies chest pain with activity and Denies pedal edema Respiratory: Respiratory: Denies cough Gastrointestinal: Gastrointestinal: Denies abdominal pain Musculoskeletal: Musculoskeletal: Denies abnormal gait, Denies muscle cramps and Denies radiating pain into limb Integumentary/Breasts: Skin/Breast: Denies skin ulcer and Denies wounds Neurologic: Reports Normal hearing present and Denies abnormal gait Psychiatric: Psychiatric: Reports no additional psychiatric complaints PMFSH Past Medical History Medical History Diabetes type 2, uncontrolled Diabetic nephropathy associated with type 2 diabetes mellitus Diabetic neuropathy associated with type 2 diabetes mellitus Diabetic retinopathy associated with type 2 diabetes mellitus Dyslipidemia Foot osteomyelitis, right 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 senior care (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 insulin Non-toxic multinodular goiter Family History Family History Father COPD (chronic obstructive pulmonary disease) Diabetes Mother Heart disease Surgical History Surgical History Hx of eye surgery Hx of foot surgery Social History Social History Household Members: None Housing: House Do you presently have visiting nurse or other home services: No Patient Tobacco Use Status: Never used Tobacco Smoked in Last 30 Days: No Use of substances other than those prescribed or required for medical reasons: No Currently Displaying Signs/Symptoms of Drug Intoxication Withdrawal: No Have you been hit, kicked, punched, or otherwise hurt by someone within the past year? If so, by whom?: No Do you feel safe in your current relationship?: No Current Relationship Is there a partner from a previous relationship who is making you feel unsafe now?: No Are you made to feel afraid or neglected: No Advance Directives: No Advance Directives Information Provided: No Advance Directives on File: No Do you have thoughts of harming others: None Do you have a plan to hurt others: No Plan Recently lost weight without trying: No How much weight loss: Not applicable Eating poorly because of decreased appetite: No Nutrition screen score: 0 Nutrition Risks: No Nutritional Risk Patient : No : No Poor oral hygiene: No service: No Current occupational status: employed Meds Allergies Allergy/AdvReac Type Severity Reaction Status Date / Time amlodipine [From NORVASC] Allergy Mild SWELLING Verified 08/19/20 19:05 Cephalosporins Allergy Mild RASH Verified 08/19/20 19:05 [CEPHALOSPORINS] Penicillins Allergy Mild RASH Verified 08/19/20 19:05 Erythromycin Allergy Unknown Unknown Verified 08/19/20 19:05 clindamycin [CLINDAMYCIN] AdvReac Intermediate DIARRHEA Verified 08/19/20 19:05 NephrAmine Allergy Unknown swelling Uncoded 05/29/19 00:00 Active Medications: Current Medications Generic Name Dose Route Start Last Admin Trade Name Freq PRN Reason Stop Dose Admin Acetaminophen 650 mg 08/19/20 23:13 08/20/20 01:58 Acetaminophen 325 Mg Tablet PO 650 mg Q6H PRN Administration Pain, Mild (Pain Scale 1-3) Atorvastatin Calcium 20 mg 08/20/20 09:00 08/21/20 07:50 Atorvastatin Calcium 20 Mg Tablet PO 20 mg DAILY KAROLINA Administration Heparin Sodium (Porcine) 5,000 unit 08/20/20 06:00 08/21/20 05:41 Heparin Sodium,Porcine 5,000 Unit/Ml Vial SUBCUT Not Given Q8H [facility] Vancomycin HCl 750 mg/ Sodium 265 mls @ 265 mls/hr 08/20/20 14:00 08/21/20 02:35 Chloride IV Infused Q12H [facility] Infusion Insulin Glargine 15 unit 08/20/20 09:00 08/21/20 07:50 Insulin Glargine,Hum.Rec.Anlog 100 Unit/Ml 10 Ml Vial SUBCUT 15 unit DAILY [facility] Administration Insulin Human Lispro 0 unit 08/20/20 07:30 08/21/20 07:18 Insulin Lispro 100 Unit/Ml 3 Ml Vial SUBCUT [facility] Protocol Magnesium Hydroxide 30 ml 08/19/20 23:13 Milk Of Magnesia 30 Ml Oral.Susp PO DAILY PRN Constipation Melatonin 6 mg 08/19/20 23:13 08/20/20 21:52 Melatonin 3 Mg Tablet PO 6 mg BEDTIME PRN Administration Insomnia Oxycodone HCl 5 mg 08/19/20 23:13 08/21/20 07:50 Oxycodone Hcl Immed Release 5 Mg Tablet PO 5 mg Q6H PRN Administration Pain, Severe (Pain Scale 7-10) Pharmacy Consult 1 each 08/19/20 23:21 Consult Rx Vancomycin Dosing MISCELLANE DAILY PRN Consult order Pharmacy Consult 1 each 08/19/20 23:51 Consult Rx Perform Med Rec MISCELLANE ONCE PRN Consult order Sodium Chloride 3 ml 08/20/20 00:00 08/21/20 07:19 0.9 % Sodium Chloride Flush 3 Ml Syringe IVFLUSH Not Given QSHIFT [facility] Valsartan 160 mg 08/20/20 09:00 08/21/20 07:50 Valsartan 160 Mg Tablet PO 160 mg DAILY KAROLINA Administration Home Medications Medication Instructions Recorded Confirmed Last Taken Type atorvastatin 1 tab PO DAILY 08/19/20 08/19/20 Unknown History ferrous sulfate 1 tab PO DAILY 08/19/20 08/19/20 Unknown History flash glucose sensor [FreeStyle 08/19/20 08/19/20 Unknown History Amber 14 Day Sensor] furosemide 1 tab PO BID 08/19/20 08/19/20 Unknown History insulin glargine U-300 conc 48 unit SUBCUT DAILY 08/19/20 08/19/20 Unknown History [Toudamion SoloStar U-300 Insulin] insulin lispro [Humalog KwikPen See Protocol SUBCUT TIDAC 08/19/20 08/19/20 Unknown History Insulin] irbesartan 1 tab PO DAILY 08/19/20 08/19/20 Unknown History pen needle, diabetic [BD Adela 2nd 08/19/20 08/19/20 Unknown History Gen Pen Needle] Physical Exam Vital Signs: Vital Signs: Last Vital Signs Temp 97.4 F 08/21/20 07:09 Pulse 62 08/21/20 07:09 Resp 17 08/21/20 07:09 BP 157/67 H 08/21/20 07:09 Pulse Ox 98 08/21/20 07:09 Body Mass Index 30.8 Const: General: cooperative, healthy appearing and comfortable Orientation/consciousness: oriented to person, oriented to place and oriented to time HENMT: Head: Yes normal to inspection Neck: Neck: Yes normal visual inspection Carotids: no bruits Chest: Chest palpation & inspection: normal inspection of the chest Resp: Effort & Inspection: normal respiratory effort and able to speak in complete sentences Auscultation: clear to auscultation bilaterally, no crackles, no rales, no rhonchi and no wheezes Cardio: Rate: regular rate Rhythm: regular rhythm Heart sounds: S1 normal heart sound present and S2 normal heart sound present Bruits: no carotid bruits Peripheral pulses: dorsalis pedis present ( bilateral dorsalis pedis signals only) GI: Inspection: Yes normal to inspection Skin: Wounds: wounds noted ( Right foot dressing clean dry intact) Hair: normal Neuro: General: oriented to person, oriented to place and oriented to time Cranial nerves: Yes CN's II-XII intact bilaterally and Yes Normal hearing present Cognition (Neuro): normal cognition Motor exam (neuro): 5/5 motor strength present throughout Extrem: Other: venous exam: +1 edema General: No clubbing, No cyanosis and No edema Psych: Appearance: grossly normal Mental Status: mental status grossly normal Speech and movement: Normal speech and movement present Results Labs Result diagrams: 08/21/20 05:46 08/21/20 05:46 Labs: Abnormal lab results 08/20/20 08/20/20 08/20/20 Range/Units 11:11 16:10 20:16 RBC (4.20-5.50) X10*6/uL Hgb (12.0-16.0) g/dl Hct (37-47) % MCH (27.0-33.0) pg Chloride (96-108) mmol/L Carbon Dioxide (22-29) mmol/L BUN (9-16) mg/dL POC Glucose 212 H 173 H 187 H (60-115) mg/dL Fasting Glucose (60-99) mg/dL Calcium (8.4-10.2) mg/dL 08/21/20 08/21/20 08/21/20 Range/Units 05:46 05:46 07:07 RBC 3.04 L (4.20-5.50) X10*6/uL Hgb 8.1 L (12.0-16.0) g/dl Hct 26.0 L (37-47) % MCH 26.6 L (27.0-33.0) pg Chloride 109 H (96-108) mmol/L Carbon Dioxide 21 L (22-29) mmol/L BUN 27 H (9-16) mg/dL POC Glucose 118 H (60-115) mg/dL Fasting Glucose 120 H D (60-99) mg/dL Calcium 8.3 L (8.4-10.2) mg/dL Short CBC 08/21/20 Range/Units 05:46 WBC 8.1 (4.8-10.8) X10*3/uL Hgb 8.1 L (12.0-16.0) g/dl Hct 26.0 L (37-47) % Plt Count 315 (160-400) X10*3/uL BMP 08/21/20 05:46 Sodium 138 Potassium 4.6 Chloride 109 H Carbon Dioxide 21 L BUN 27 H Creatinine 1.30 Calcium 8.3 L All other labs normal. Assessment and Plan (1) PAD (peripheral artery disease): Status: Acute in short patient has nonhealing foot ulcer. I do believe it is doing significantly better. Pain appears to be better control with the patient. She believes it may be related to a gout attack. It is unclear what is going on from a vascular perspective. I have taken the liberty of ordering noninvasive arterial testing. From a wound perspective she has seen Dr. Baker as in the past in terms of wound care and debridement. Most recently she was going to [facility] but wishes to transfer back to [facility] [place]. It may be helpful to co reconnect her upon discharge. I will follow- up with the testing. Thank you for allowing us to assist in her care. If there are any questions or concerns please do not hesitate to contact us. Procedures Date of Service Date of Service: 08/21/20
[2020-08-21 11:22] LABS: Glucose, Whole Blood 215 mg/dL (60-115)
--- NOTE | 2020-08-21 11:23 | MHC.CLN ---
NUTRITION CONSULT PATIENT WITH DIABETIC FOOT ULCER. TAKES LANTUS AND HUMALOG. DIET=DIABETIC 2000 KCAL. RANDOM GLUCOSE AND POC HIGH. RD RECOMMENDS CHANGE DIET TO 1800 KCAL TO PROVIDE 27.3 KCAL/KG CALCULATED METABOLIC WEIGHT. BMI=30.8. OBESE. EATING 75-100% OF MEALS.
[2020-08-21] MEDS: Insulin Lispro 100 UNIT/ML 3 ML VIAL SUBCUT ×2 (11:27→20:40)
--- NOTE | 2020-08-21 11:33 | HO.PM.IMPN ---
Subjective Subjective Date of Service: 08/21/20 Interval History: no complaints Cardiovascular Cardiovascular: Reports no additional cardiovascular complaints Gastrointestinal Gastrointestinal: Reports no additional gastrointestinal complaints Physical Exam Vital Signs: Vital Signs: Last Vital Signs Temp 98.0 F 08/21/20 11:06 Pulse 62 08/21/20 11:06 Resp 17 08/21/20 11:06 BP 159/72 H 08/21/20 11:06 Pulse Ox 98 08/21/20 11:06 Body Mass Index 30.8 General: AO X 3, no acute distress Resp: CTA bilateral CVS: S1,S2,RRR GI: soft, non tender, non distended Neuro: motor grossly intact Psych: appropriate affect right plantar ulce Objective Data Current Medications Generic Name Dose Route Start Last Admin Trade Name Freq PRN Reason Stop Dose Admin Acetaminophen 650 mg 08/19/20 23:13 08/20/20 01:58 Acetaminophen 325 Mg Tablet PO 650 mg Q6H PRN Administration Pain, Mild (Pain Scale 1-3) Atorvastatin Calcium 20 mg 08/20/20 09:00 08/21/20 07:50 Atorvastatin Calcium 20 Mg Tablet PO 20 mg DAILY [facility] Administration Heparin Sodium (Porcine) 5,000 unit 08/20/20 06:00 08/21/20 05:41 Heparin Sodium,Porcine 5,000 Unit/Ml Vial SUBCUT Not Given Q8H [facility] Vancomycin HCl 750 mg/ Sodium 265 mls @ 265 mls/hr 08/20/20 14:00 08/21/20 02:35 Chloride IV Infused Q12H [facility] Infusion Insulin Glargine 15 unit 08/20/20 09:00 08/21/20 07:50 Insulin Glargine,Hum.Rec.Anlog 100 Unit/Ml 10 Ml Vial SUBCUT 15 unit DAILY [facility] Administration Insulin Human Lispro 0 unit 08/20/20 07:30 08/21/20 11:27 Insulin Lispro 100 Unit/Ml 3 Ml Vial SUBCUT 4 unit QIDACHS [facility] Administration Protocol Magnesium Hydroxide 30 ml 08/19/20 23:13 Milk Of Magnesia 30 Ml Oral.Susp PO DAILY PRN Constipation Melatonin 6 mg 08/19/20 23:13 08/20/20 21:52 Melatonin 3 Mg Tablet PO 6 mg BEDTIME PRN Administration Insomnia Oxycodone HCl 5 mg 08/19/20 23:13 08/21/20 07:50 Oxycodone Hcl Immed Release 5 Mg Tablet PO 5 mg Q6H PRN Administration Pain, Severe (Pain Scale 7-10) Pharmacy Consult 1 each 08/19/20 23:21 Consult Rx Vancomycin Dosing MISCELLANE DAILY PRN Consult order Pharmacy Consult 1 each 08/19/20 23:51 Consult Rx Perform Med Rec MISCELLANE ONCE PRN Consult order Sodium Chloride 3 ml 08/20/20 00:00 08/21/20 07:19 0.9 % Sodium Chloride Flush 3 Ml Syringe IVFLUSH Not Given QSHIFT [facility] Valsartan 160 mg 08/20/20 09:00 08/21/20 07:50 Valsartan 160 Mg Tablet PO 160 mg DAILY [facility] Administration Labs CBC & Chem 7: 08/21/20 05:46 08/21/20 05:46 Labs: Laboratory Results - last 24 hr 08/20/20 08/20/20 08/21/20 16:10 20:16 05:46 WBC 8.1 RBC 3.04 L Hgb 8.1 L Hct 26.0 L MCV 85.5 MCH 26.6 L MCHC 31.2 RDW 14.2 Plt Count 315 MPV 9.6 Absolute Nucleated RBC 0.000 Nucleated RBC % (auto) 0.0 Sodium Potassium Chloride Carbon Dioxide Anion Gap BUN Creatinine Estim Creat Clear Calc Estimated GFR POC Glucose 173 H 187 H Fasting Glucose Calcium 08/21/20 08/21/20 08/21/20 05:46 07:07 11:08 WBC RBC Hgb Hct MCV MCH MCHC RDW Plt Count MPV Absolute Nucleated RBC Nucleated RBC % (auto) Sodium 138 Potassium 4.6 Chloride 109 H Carbon Dioxide 21 L Anion Gap 13 BUN 27 H Creatinine 1.30 Estim Creat Clear Calc 52.3 Estimated GFR 42 POC Glucose 118 H 215 H Fasting Glucose 120 H D Calcium 8.3 L Microbiology Microbiology Results: Microbiology 08/19/20 21:16 Gram Stain - Final Foot Right Routine Culture - Preliminary Culture in progress. Quality Stroke Does the patient have a stroke diagnosis?: No VTE Prior VTE?: No VTE Risk Level:: Medical - moderate - high VTE Device Contraindication: Patient Refused VTE Drug Contraindication: N/A - Med Ordered Assessment and Plan (1) Diabetic foot ulcer: Status: Acute Assessment and Plan: 59F presented with worsening right plantar ulcer Acute on chronic diabetic foot ulcer/cellulitis continue vanc ID follow up - likely clinda and doxy on discharge surgical eval VENKATESH on CKD back to baseline DM insulin
--- NOTE | 2020-08-21 12:01 | P.CNID_ITS ---
History of Present Illness Data of Consult Service Date: 08/21/20 Requesting physician: Donald Solorio Primary Care Provider: Kristin Bellamy MD [facility] Reason for consult: right foot infection She has discomfort and swelling lateral right foot for four days She has no fever or chills She has seen vascular and had removal hardware from foot Review of Systems Review of Systems: Yes all other systems are reviewed and are negative [facility] Past Medical History Medical History (Updated 08/21/20 @ 12:06 by Jen Carlton MD) Cellulitis Diabetes type 2, uncontrolled Diabetic nephropathy associated with type 2 diabetes mellitus Diabetic neuropathy associated with type 2 diabetes mellitus Diabetic retinopathy associated with type 2 diabetes mellitus Dyslipidemia Foot osteomyelitis, right 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 custodial (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 insulin Non-toxic multinodular goiter Family History Family History Father COPD (chronic obstructive pulmonary disease) Diabetes Mother Heart disease Family history: reviewed and not pertinent Surgical History Surgical History Hx of eye surgery Hx of foot surgery Social History Social History Household Members: None Housing: House Do you presently have visiting nurse or other home services: No Patient Tobacco Use Status: Never used Tobacco Smoked in Last 30 Days: No Use of substances other than those prescribed or required for medical reasons: No Currently Displaying Signs/Symptoms of Drug Intoxication Withdrawal: No Have you been hit, kicked, punched, or otherwise hurt by someone within the past year? If so, by whom?: No Do you feel safe in your current relationship?: No Current Relationship Is there a partner from a previous relationship who is making you feel unsafe now?: No Are you made to feel afraid or neglected: No Advance Directives: No Advance Directives Information Provided: No Advance Directives on File: No Do you have thoughts of harming others: None Do you have a plan to hurt others: No Plan Recently lost weight without trying: No How much weight loss: Not applicable Eating poorly because of decreased appetite: No Nutrition screen score: 0 Nutrition Risks: No Nutritional Risk Patient : No : No Poor oral hygiene: No service: No Current occupational status: employed Meds Allergies Allergy/AdvReac Type Severity Reaction Status Date / Time amlodipine [From [facility]] Allergy Mild SWELLING Verified 08/19/20 19:05 Cephalosporins Allergy Mild RASH Verified 08/19/20 19:05 [CEPHALOSPORINS] Penicillins Allergy Mild RASH Verified 08/19/20 19:05 Erythromycin Allergy Unknown Unknown Verified 08/19/20 19:05 clindamycin [CLINDAMYCIN] AdvReac Intermediate DIARRHEA Verified 08/19/20 19:05 NephrAmine Allergy Unknown swelling Uncoded 05/29/19 00:00 Active Medications: Current Medications Generic Name Dose Route Start Last Admin Trade Name Freq PRN Reason Stop Dose Admin Acetaminophen 650 mg 08/19/20 23:13 08/20/20 01:58 Acetaminophen 325 Mg Tablet PO 650 mg Q6H PRN Administration Pain, Mild (Pain Scale 1-3) Atorvastatin Calcium 20 mg 08/20/20 09:00 08/21/20 07:50 Atorvastatin Calcium 20 Mg Tablet PO 20 mg DAILY [facility] Administration Heparin Sodium (Porcine) 5,000 unit 08/20/20 06:00 08/21/20 05:41 Heparin Sodium,Porcine 5,000 Unit/Ml Vial SUBCUT Not Given Q8H [facility] Vancomycin HCl 750 mg/ Sodium 265 mls @ 265 mls/hr 08/20/20 14:00 08/21/20 02:35 Chloride IV Infused Q12H [facility] Infusion Insulin Glargine 15 unit 08/20/20 09:00 08/21/20 07:50 Insulin Glargine,Hum.Rec.Anlog 100 Unit/Ml 10 Ml Vial SUBCUT 15 unit DAILY [facility] Administration Insulin Human Lispro 0 unit 08/20/20 07:30 08/21/20 11:27 Insulin Lispro 100 Unit/Ml 3 Ml Vial SUBCUT 4 unit QIDACHS [facility] Administration Protocol Magnesium Hydroxide 30 ml 08/19/20 23:13 Milk Of Magnesia 30 Ml Oral.Susp PO DAILY PRN Constipation Melatonin 6 mg 08/19/20 23:13 08/20/20 21:52 Melatonin 3 Mg Tablet PO 6 mg BEDTIME PRN Administration Insomnia Oxycodone HCl 5 mg 08/19/20 23:13 08/21/20 07:50 Oxycodone Hcl Immed Release 5 Mg Tablet PO 5 mg Q6H PRN Administration Pain, Severe (Pain Scale 7-10) Pharmacy Consult 1 each 08/19/20 23:21 Consult Rx Vancomycin Dosing MISCELLANE DAILY PRN Consult order Pharmacy Consult 1 each 08/19/20 23:51 Consult Rx Perform Med Rec MISCELLANE ONCE PRN Consult order Sodium Chloride 3 ml 08/20/20 00:00 08/21/20 07:19 0.9 % Sodium Chloride Flush 3 Ml Syringe IVFLUSH Not Given QSHIFT [facility] Valsartan 160 mg 08/20/20 09:00 08/21/20 07:50 Valsartan 160 Mg Tablet PO 160 mg DAILY [facility] Administration Home Medications Medication Instructions Recorded Confirmed Last Taken Type atorvastatin 1 tab PO DAILY 08/19/20 08/19/20 Unknown History ferrous sulfate 1 tab PO DAILY 08/19/20 08/19/20 Unknown History flash glucose sensor [FreeStyle 08/19/20 08/19/20 Unknown History Amber 14 Day Sensor] furosemide 1 tab PO BID 08/19/20 08/19/20 Unknown History insulin glargine U-300 conc 48 unit SUBCUT DAILY 08/19/20 08/19/20 Unknown His tory [Toujeo SoloStar U-300 Insulin] insulin lispro [Humalog KwikPen See Protocol SUBCUT TIDAC 08/19/20 08/19/20 Unknown History Insulin] irbesartan 1 tab PO DAILY 08/19/20 08/19/20 Unknown History pen needle, diabetic [BD Adela 2nd 08/19/20 08/19/20 Unknown History Gen Pen Needle] Physical Exam Vital Signs: Vital Signs: Last Vital Signs Temp 98.0 F 08/21/20 11:06 Pulse 62 08/21/20 11:06 Resp 17 08/21/20 11:06 BP 159/72 H 08/21/20 11:06 Pulse Ox 98 08/21/20 11:06 Body Mass Index 30.8 Const: General: cooperative HENMT: Head: Yes normal to inspection Mouth: Normal oral and palatal mucosa present Resp: Effort & Inspection: normal respiratory effort Cardio: Rate: regular rate Rhythm: regular rhythm GI: Palpation (GI): Soft to palpation and nontender Extrem: Other: right foot cellulitis lateral and swelling,no drainage Results Labs CBC & Chem 7: 08/21/20 05:46 08/21/20 05:46 Labs: Short CBC 08/21/20 Range/Units 05:46 WBC 8.1 (4.8-10.8) X10*3/uL Hgb 8.1 L (12.0-16.0) g/dl Hct 26.0 L (37-47) % Plt Count 315 (160-400) X10*3/uL BMP 08/21/20 05:46 Sodium 138 Potassium 4.6 Chloride 109 H Carbon Dioxide 21 L BUN 27 H Creatinine 1.30 Calcium 8.3 L Microbiology Microbiology Results: Microbiology 08/19/20 21:16 Foot Right Gram Stain - Final 08/19/20 21:16 Foot Right Routine Culture - Preliminary Culture in progress. Assessment and Plan (1) PAD (peripheral artery disease): Status: Acute (2) Cellulitis: Status: Acute Superficial cellulitis She usually has Group B strep When better in a day or so po Clindamycin 300 mg tid and Doxycycline for seven to ten days outpatient F/U Vascular
--- NOTE | 2020-08-21 13:25 | MHC.CM.PN ---
EMR REVIEWED, PER HOSPITALIST NO D/C PLANNED FOR TODAY, PER SURGICAL THEY WILL ORDER NONINVASIVE ARTERIAL STUDIES AND PER ID PT WILL REMAIN ON IV VANCO WHILE INPT AND LIKELY D/C ON ORAL CLINDAMYCIN AND DOXYCYCLINE, CM TO CONT TO FOLLOW D/C NEEDS. D/C PLAN: HOME SELF CARE W/[facility], FAMILY FOR TRANSPORT.
[2020-08-21 14:09] LABS: Vancomycin Trough 15.9 mcg/mL (10.0-20.0)
--- NOTE | 2020-08-21 14:35 | P.CONGS_ITS ---
History of Present Illness Consult details Consult date: 08/21/20 Reason for consult: wound care (and cellulitis right foot) Requesting physician: Donald Solorio Narrative: This is a 59-year-old female with a long history of diabetes mellitus, right Charcot foot deformity with prior history of fracture, delayed surgical repair, osteomyelitis and diabetic foot ulcer who presented to the emergency department with several-day history of fever, malaise, and increased pain and swelling in her right foot. She has been receiving treatment at the [facility] and also has been consulting with her documentation specialist, Dr. Henrique Stein. X-rays of the right foot done on admission 08/19/2020 do not reveal any acute changes or evidence of osteomyelitis. She has been evaluated by Dr. Gamez of vascular surgery, who felt clinically that there was adequate vascularity to the foot. Ultrasound studies are pending. Wound cultures are pending as well. She reports that, since admission, she is feeling better. Appetite was somewhat diminished prior to admission, but has return to normal. Pain was moderate on admission. That has improved somewhat as well, but has not completely resolved. She feels that the swelling has improved somewhat. She reports that there has been increased drainage from the chronic wound on the plantar aspect of her right foot. She has been doing her own dressing changes at home using silver alginate. Review of Systems Constitutional: Constitutional: Reports chills (On admission, now resolved) and Reports fever(s) (On admission) Eyes: Eyes: Reports requires corrective lenses Cardiovascular: Cardiovascular: Denies chest pain and Denies rapid heart rate Respiratory: Respiratory: Reports no additional respiratory complaints Gastrointestinal: Gastrointestinal: Reports no additional gastrointestinal complaints Musculoskeletal: Comments: Had cramps and right calf at home, not present since admission Neurologic: Comments: Neuropathy involving feet PMFSH Past Medical History Medical History Cellulitis Diabetes type 2, uncontrolled Diabetic nephropathy associated with type 2 diabetes mellitus Diabetic neuropathy associated with type 2 diabetes mellitus Diabetic retinopathy associated with type 2 diabetes mellitus Dyslipidemia Foot osteomyelitis, right 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 Non-toxic multinodular goiter Family History Family History Father COPD (chronic obstructive pulmonary disease) Diabetes Mother Heart disease Family history: reviewed and not pertinent Surgical History Surgical History Hx of eye surgery Hx of foot surgery Social History Social History Household Members: None Housing: House Do you presently have visiting nurse or other home services: No Patient Tobacco Use Status: Never used Tobacco Smoked in Last 30 Days: No Use of substances other than those prescribed or required for medical reasons: No Currently Displaying Signs/Symptoms of Drug Intoxication Withdrawal: No Have you been hit, kicked, punched, or otherwise hurt by someone within the past year? If so, by whom?: No Do you feel safe in your current relationship?: No Current Relationship Is there a partner from a previous relationship who is making you feel unsafe now?: No Are you made to feel afraid or neglected: No Advance Directives: No Advance Directives Information Provided: No Advance Directives on File: No Do you have thoughts of harming others: None Do you have a plan to hurt others: No Plan Recently lost weight without trying: No How much weight loss: Not applicable Eating poorly because of decreased appetite: No Nutrition screen score: 0 Nutrition Risks: No Nutritional Risk Patient : No : No Poor oral hygiene: No service: No Current occupational status: employed Meds Allergies Allergy/AdvReac Type Severity Reaction Status Date / Time amlodipine [From [facility]] Allergy Mild SWELLING Verified 08/19/20 19:05 Cephalosporins Allergy Mild RASH Verified 08/19/20 19:05 [CEPHALOSPORINS] Penicillins Allergy Mild RASH Verified 08/19/20 19:05 Erythromycin Allergy Unknown Unknown Verified 08/19/20 19:05 clindamycin [CLINDAMYCIN] AdvReac Intermediate DIARRHEA Verified 08/19/20 19:05 NephrAmine Allergy Unknown swelling Uncoded 05/29/19 00:00 Active Medications: Current Medications Generic Name Dose Route Start Last Admin Trade Name Freq PRN Reason Stop Dose Admin Acetaminophen 650 mg 08/19/20 23:13 08/20/20 01:58 Acetaminophen 325 Mg Tablet PO 650 mg Q6H PRN Administration Pain, Mild (Pain Scale 1-3) Atorvastatin Calcium 20 mg 08/20/20 09:00 08/21/20 07:50 Atorvastatin Calcium 20 Mg Tablet PO 20 mg DAILY [facility] Administration Heparin Sodium (Porcine) 5,000 unit 08/20/20 06:00 08/21/20 05:41 Heparin Sodium,Porcine 5,000 Unit/Ml Vial SUBCUT Not Given Q8H [facility] Vancomycin HCl 1,250 mg/ 250 mls @ 166.667 mls/hr 08/21/20 18:00 Sodium Chloride IV Q24H [facility] Insulin Glargine 15 unit 08/20/20 09:00 08/21/20 07:50 Insulin Glargine,Hum.Rec.Anlog 100 Unit/Ml 10 Ml Vial SUBCUT 15 unit DAILY [facility] Administration Insulin Human Lispro 0 unit 08/20/20 07:30 08/21/20 11:27 Insulin Lispro 100 Unit/Ml 3 Ml Vial SUBCUT 4 unit QIDACHS [facility] Administration Protocol Magnesium Hydroxide 30 ml 08/19/20 23:13 Milk Of Magnesia 30 Ml Oral.Susp PO DAILY PRN Constipation Melatonin 6 mg 08/19/20 23:13 08/20/20 21:52 Melatonin 3 Mg Tablet PO 6 mg BEDTIME PRN Administration Insomnia Oxycodone HCl 5 mg 08/19/20 23:13 08/21/20 07:50 Oxycodone Hcl Immed Release 5 Mg Tablet PO 5 mg Q6H PRN Administration Pain, Severe (Pain Scale 7-10) Pharmacy Consult 1 each 08/19/20 23:21 Consult Rx Vancomycin Dosing MISCELLANE DAILY PRN Consult order Pharmacy Consult 1 each 08/19/20 23:51 Consult Rx Perform Med Rec MISCELLANE ONCE PRN Consult order Sodium Chloride 3 ml 08/20/20 00:00 08/21/20 07:19 0.9 % Sodium Chloride Flush 3 Ml Syringe IVFLUSH Not Given QSHIFT [facility] Valsartan 160 mg 08/20/20 09:00 08/21/20 07:50 Valsartan 160 Mg Tablet PO 160 mg DAILY [facility] Administration Home Medications Medication Instructions Recorded Confirmed Last Taken Type atorvastatin 1 tab PO DAILY 08/19/20 08/19/20 Unknown History ferrous sulfate 1 tab PO DAILY 08/19/20 08/19/20 Unknown History flash glucose sensor [FreeStyle 08/19/20 08/19/20 Unknown History Amber 14 Day Sensor] furosemide 1 tab PO BID 08/19/20 08/19/20 Unknown History insulin glargine U-300 conc 48 unit SUBCUT DAILY 08/19/20 08/19/20 Unknown History [Vernonudamion Osmanar U-300 Insulin] insulin lispro [Humalog KwikPen See Protocol SUBCUT TIDAC 08/19/20 08/19/20 Unknown History Insulin] irbesartan 1 tab PO DAILY 08/19/20 08/19/20 Unknown History pen needle, diabetic [BD Adela 2nd 08/19/20 08/19/20 Unknown History Gen Pen Needle] Physical Exam Vital Signs: Vital Signs: Last Vital Signs Temp 98.0 F 08/21/20 11:06 Pulse 62 08/21/20 11:06 Resp 17 08/21/20 11:06 BP 159/72 H 08/21/20 11:06 Pulse Ox 98 08/21/20 11:06 Body Mass Index 30.8 Const: General: cooperative, no acute distress and alert Nutritional Appearance: overweight HENMT: Head: Yes normocephalic and Yes atraumatic Resp: Effort & Inspection: normal respiratory effort Auscultation: clear to auscultation bilaterally Cardio: Rate: regular rate Rhythm: regular rhythm Extrem: Other: Moderate edema right lower leg and foot, Charcot deformity right foot mild erythema of right mid and distal foot with more moderate erythema plantar aspect of the midfoot. Ulcer plantar aspect mid foot measuring 3.1 x 0.8 x 0.8 cm with thickened skin at wound edges and exudate on wound surface, wound generally clean and granulating Results Labs Result diagrams: 08/21/20 05:46 08/21/20 05:46 Labs: Abnormal lab results 08/20/20 08/20/20 08/21/20 Range/Units 16:10 20:16 05:46 RBC 3.04 L (4.20-5.50) X10*6/uL Hgb 8.1 L (12.0-16.0) g/dl Hct 26.0 L (37-47) % MCH 26.6 L (27.0-33.0) pg Chloride (96-108) mmol/L Carbon Dioxide (22-29) mmol/L BUN (9-16) mg/dL POC Glucose 173 H 187 H (60-115) mg/dL Fasting Glucose (60-99) mg/dL Calcium (8.4-10.2) mg/dL 08/21/20 08/21/20 08/21/20 Range/Units 05:46 07:07 11:08 RBC (4.20-5.50) X10*6/uL Hgb (12.0-16.0) g/dl Hct (37-47) % MCH (27.0-33.0) pg Chloride 109 H (96-108) mmol/L Carbon Dioxide 21 L (22-29) mmol/L BUN 27 H (9-16) mg/dL POC Glucose 118 H 215 H (60-115) mg/dL Fasting Glucose 120 H D (60-99) mg/dL Calcium 8.3 L (8.4-10.2) mg/dL Short CBC 08/21/20 Range/Units 05:46 WBC 8.1 (4.8-10.8) X10*3/uL Hgb 8.1 L (12.0-16.0) g/dl Hct 26.0 L (37-47) % Plt Count 315 (160-400) X10*3/uL BMP 08/21/20 05:46 Sodium 138 Potassium 4.6 Chloride 109 H Carbon Dioxide 21 L BUN 27 H Creatinine 1.30 Calcium 8.3 L All other labs normal. Assessment and Plan (1) Cellulitis: Status: Acute (2) Diabetic neuropathy associated with type 2 diabetes mellitus: Status: Acute (3) Diabetic foot ulcer associated with type 2 diabetes mellitus: Status: Acute 59-year-old female with a chronic plantar diabetic foot ulcer, right, with cellulitis that appears improved on IV antibiotic therapy. Cultures are pending. Per Dr. Carlton, switch to p.o. antibiotics once culture results are available. Local wound debridement performed to remove slough for mood surface and thickened skin from wound edges. Continue silver alginate dressings. Has scheduled follow-up at [facility]. Procedures Date of Service Date of Service: 08/21/20 Procedure Note Procedure Note: Technique of bedside debridement right plantar ulcer was discussed and consent obtained. The wound and surrounding skin were cleansed with saline solution. The ulcer extended into the subcutaneous tissues of the foot foot. A 15. Scalpel was employed to remove exudate from the ulcer bed. Thickened skin was removed from the ulcer margin using the 15. Scalpel. Minimal bleeding was encountered and was controlled with pressure. A a new silver alginate and gauze dressing was applied. She tolerated the procedure well.
[2020-08-21 16:41] LABS: Glucose, Whole Blood 147 mg/dL (60-115)
[2020-08-21] MEDS: 0.9 % Sodium Chloride Flush 3 ML SYRINGE IVFLUSH ×2 (18:05→20:45)
[2020-08-21] MEDS: vancomycin HCL 1,250 MG in 0.9 % Sodium Chloride 250 ML 166.67 MG IV (18:05)
[2020-08-21 20:25] LABS: Glucose, Whole Blood 186 mg/dL (60-115)
[2020-08-21] MEDS: Melatonin 3 MG TABLET 6 MG PO (20:43)
[2020-08-21] MEDS: Acetaminophen 325 MG TABLET 650 MG PO (20:43)
[2020-08-22 03:30] VITALS: BP 175/77; PULSE 54; RESP 18; TEMP 36.1; O2SAT 98
[2020-08-22 07:35] VITALS: BP 151/73; PULSE 63; RESP 18; TEMP 36; O2SAT 100
[2020-08-22 07:57] LABS: Glucose, Whole Blood 133 mg/dL (60-115)
[2020-08-22] MEDS: Valsartan 160 MG TABLET PO (08:22)
[2020-08-22] MEDS: Atorvastatin Calcium 20 MG TABLET PO (08:22)
[2020-08-22] MEDS: Insulin Glargine,Hum.rec.anlog 100 UNIT/ML 10 ML VIAL 15 UNIT SUBCUT (08:22)
[2020-08-22] MEDS: 0.9 % Sodium Chloride Flush 3 ML SYRINGE IVFLUSH ×3 (08:22→20:49)
--- NOTE | 2020-08-22 10:06 | P.PNIM_ITS ---
Subjective Subjective Date of Service: 08/22/20 Interval History: no compl.aints Cardiovascular Cardiovascular: Reports no additional cardiovascular complaints Respiratory Respiratory: Reports no additional respiratory complaints Physical Exam Vital Signs: Vital Signs: Last Vital Signs Temp 96.8 F 08/22/20 07:35 Pulse 63 08/22/20 07:35 Resp 18 08/22/20 07:35 BP 151/73 H 08/22/20 07:35 Pulse Ox 100 08/22/20 07:35 Body Mass Index 30.8 General: AO X 3, no acute distress Resp: CTA bilateral CVS: S1,S2,RRR GI: soft, non tender, non distended Neuro: motor grossly intact Psych: appropriate affect Other: Moderate edema right lower leg and foot, Charcot deformity right foot mild erythema of right mid and distal foot with more moderate erythema plantar aspect of the midfoot. Ulcer plantar aspect mid foot measuring 3.1 x 0.8 x 0.8 cm with thickened skin at wound edges and exudate on wound surface, wound generally clean and granulating Objective Data Current Medications Generic Name Dose Route Start Last Admin Trade Name Paramjitq PRN Reason Stop Dose Admin Acetaminophen 650 mg 08/19/20 23:13 08/21/20 20:43 Acetaminophen 325 Mg Tablet PO 650 mg Q6H PRN Administration Pain, Mild (Pain Scale 1-3) Atorvastatin Calcium 20 mg 08/20/20 09:00 08/22/20 08:22 Atorvastatin Calcium 20 Mg Tablet PO 20 mg DAILY [facility] Administration Heparin Sodium (Porcine) 5,000 unit 08/20/20 06:00 08/22/20 06:11 Heparin Sodium,Porcine 5,000 Unit/Ml Vial SUBCUT Not Given Q8H [facility] Vancomycin HCl 1,250 mg/ 250 mls @ 166.667 mls/hr 08/21/20 18:00 08/21/20 19:51 Sodium Chloride IV Infused Q24H [facility] Infusion Insulin Glargine 15 unit 08/20/20 09:00 08/22/20 08:22 Insulin Glargine,Hum.Rec.Anlog 100 Unit/Ml 10 Ml Vial SUBCUT 15 unit DAILY [facility] Administration Insulin Human Lispro 0 unit 08/20/20 07:30 08/22/20 08:14 Insulin Lispro 100 Unit/Ml 3 Ml Vial SUBCUT Not Given QIDACHS [facility] Protocol Magnesium Hydroxide 30 ml 08/19/20 23:13 Milk Of Magnesia 30 Ml Oral.Susp PO DAILY PRN Constipation Melatonin 6 mg 08/19/20 23:13 08/21/20 20:43 Melatonin 3 Mg Tablet PO 6 mg BEDTIME PRN Administration Insomnia Oxycodone HCl 5 mg 08/19/20 23:13 08/21/20 07:50 Oxycodone Hcl Immed Release 5 Mg Tablet PO 5 mg Q6H PRN Administration Pain, Severe (Pain Scale 7-10) Pharmacy Consult 1 each 08/19/20 23:21 Consult Rx Vancomycin Dosing MISCELLANE DAILY PRN Consult order Pharmacy Consult 1 each 08/19/20 23:51 Consult Rx Perform Med Rec MISCELLANE ONCE PRN Consult order Sodium Chloride 3 ml 08/20/20 00:00 08/22/20 08:22 0.9 % Sodium Chloride Flush 3 Ml Syringe IVFLUSH 3 ml QSHIFT [facility] Administration Valsartan 160 mg 08/20/20 09:00 08/22/20 08:22 Valsartan 160 Mg Tablet PO 160 mg DAILY [facility] Administration Labs CBC & Chem 7: 08/21/20 05:46 08/21/20 05:46 Labs: Laboratory Results - last 24 hr 08/21/20 08/21/20 08/21/20 11:08 13:19 16:27 POC Glucose 215 H 147 H Vancomycin Trough 15.9 08/21/20 08/22/20 20:13 07:37 POC Glucose 186 H 133 H Vancomycin Trough Microbiology Microbiology Results: Microbiology 08/19/20 21:16 Gram Stain - Final Foot Right Routine Culture - Final Quality Stroke Does the patient have a stroke diagnosis?: No VTE Prior VTE?: No VTE Risk Level:: Medical - moderate - high VTE Device Contraindication: Patient Refused VTE Drug Contraindication: N/A - Med Ordered Assessment and Plan (1) Diabetic foot ulcer: Status: Deleted Assessment and Plan: 59F presented with worsening right plantar ulcer Acute on chronic diabetic foot ulcer/cellulitis continue vanc ID appreciated - clinda and doxy on discharge s/p bedside debridement by surgery PVD significant stenosis seen on US, vascular follow up VENKATESH on CKD back to baseline DM insulin
[2020-08-22 11:27] VITALS: BP 165/60; PULSE 61; RESP 18; TEMP 36; O2SAT 98
[2020-08-22 11:38] LABS: Glucose, Whole Blood 149 mg/dL (60-115)
--- NOTE | 2020-08-22 14:55 | P.PNGS_ITS ---
Subjective Subjective Date of Service: 08/22/20 Patient reports: no new complaints Physical Exam Vital Signs: Vital Signs: Last Vital Signs Temp 96.8 F 08/22/20 11:27 Pulse 61 08/22/20 11:27 Resp 18 08/22/20 11:27 BP 165/60 H 08/22/20 11:27 Pulse Ox 98 08/22/20 11:27 Body Mass Index 30.8 Const: General: cooperative, no acute distress and alert Extrem: Other: Charcot change right foot. Clean ulcer plantar aspect midfoot extending into the subcutaneous tissue, 3.1 x 0.8 x 0.8 cm. Mild erythema of plantar aspect and mid and lateral dorsum right foot improved from yesterday Progress Note: A&P Assessment and plan (1) Diabetic foot ulcer associated with type 2 diabetes mellitus: Status: Acute (2) Cellulitis: Status: Acute (3) PAD (peripheral artery disease): Status: Acute Assessment and Plan: 59-year-old female with Charcot change of right foot and plantar ulcer, cellulitis right foot. Cellulitis is improving. Ulcer appears clean and stable. Arterial ultrasound studies show evidence of vascular disease more significant on the right involving the popliteal and distal vessels. Vascular follow-up is planned. On vancomycin. Cultures growing skin chana. Anticipate switch to p.o. antibiotics next 1-2 days. Fall Risk Details Current Medications: Current Medications Generic Name Dose Route Start Last Admin Trade Name Freq PRN Reason Stop Dose Admin Acetaminophen 650 mg 08/19/20 23:13 08/21/20 20:43 Acetaminophen 325 Mg Tablet PO 650 mg Q6H PRN Administration Pain, Mild (Pain Scale 1-3) Atorvastatin Calcium 20 mg 08/20/20 09:00 08/22/20 08:22 Atorvastatin Calcium 20 Mg Tablet PO 20 mg DAILY [facility] Administration Heparin Sodium (Porcine) 5,000 unit 08/20/20 06:00 08/22/20 06:11 Heparin Sodium,Porcine 5,000 Unit/Ml Vial SUBCUT Not Given Q8H [facility] Vancomycin HCl 1,250 mg/ 250 mls @ 166.667 mls/hr 08/21/20 18:00 08/21/20 19:51 Sodium Chloride IV Infused Q24H [facility] Infusion Insulin Glargine 15 unit 08/20/20 09:00 08/22/20 08:22 Insulin Glargine,Hum.Rec.Anlog 100 Unit/Ml 10 Ml Vial SUBCUT 15 unit DAILY [facility] Administration Insulin Human Lispro 0 unit 08/20/20 07:30 08/22/20 11:40 Insulin Lispro 100 Unit/Ml 3 Ml Vial SUBCUT Not Given QIDACHS [facility] Protocol Magnesium Hydroxide 30 ml 08/19/20 23:13 Milk Of Magnesia 30 Ml Oral.Susp PO DAILY PRN Constipation Melatonin 6 mg 08/19/20 23:13 08/21/20 20:43 Melatonin 3 Mg Tablet PO 6 mg BEDTIME PRN Administration Insomnia Oxycodone HCl 5 mg 08/19/20 23:13 08/21/20 07:50 Oxycodone Hcl Immed Release 5 Mg Tablet PO 5 mg Q6H PRN Administration Pain, Severe (Pain Scale 7-10) Pharmacy Consult 1 each 08/19/20 23:21 Consult Rx Vancomycin Dosing MISCELLANE DAILY PRN Consult order Pharmacy Consult 1 each 08/19/20 23:51 Consult Rx Perform Med Rec MISCELLANE ONCE PRN Consult order Sodium Chloride 3 ml 08/20/20 00:00 08/22/20 08:22 0.9 % Sodium Chloride Flush 3 Ml Syringe IVFLUSH 3 ml QSHIFT [facility] Administration Valsartan 160 mg 08/20/20 09:00 08/22/20 08:22 Valsartan 160 Mg Tablet PO 160 mg DAILY [facility] Administration Time Spent With Patient Time: Total time spent is greater than 50% in coordination of care (as docum ented) at patient's floor/unit and/or counseling patient: Time with patient: less than 15 minutes Procedures Date of Service Date of Service: 08/22/20 Quality Stroke Does the patient have a stroke diagnosis?: No VTE Prior VTE?: No VTE Risk Level:: Medical - moderate - high VTE Device Contraindication: Patient Refused VTE Drug Contraindication: N/A - Med Ordered
[2020-08-22 15:07] VITALS: BP 173/72; PULSE 62; RESP 17; TEMP 36.3; O2SAT 99
[2020-08-22 16:03] LABS: Glucose, Whole Blood 185 mg/dL (60-115)
[2020-08-22] MEDS: Insulin Lispro 100 UNIT/ML 3 ML VIAL SUBCUT ×2 (17:58→20:47)
[2020-08-22] MEDS: vancomycin HCL 1,250 MG in 0.9 % Sodium Chloride 250 ML 166.67 MG IV (17:58)
[2020-08-22 19:10] VITALS: BP 154/68; PULSE 64; RESP 15; TEMP 36.5; O2SAT 100
[2020-08-22 20:24] LABS: Glucose, Whole Blood 250 mg/dL (60-115)
[2020-08-22] MEDS: Melatonin 3 MG TABLET 6 MG PO (20:48)
[2020-08-22 23:08] VITALS: BP 166/76; PULSE 63; RESP 16; TEMP 36.6; O2SAT 98
[2020-08-23 04:00] VITALS: BP 179/75; PULSE 63; RESP 16; TEMP 36.4; O2SAT 97
[2020-08-23 07:08] VITALS: BP 176/77; PULSE 59; RESP 17; TEMP 36.1; O2SAT 97
[2020-08-23 07:18] LABS: Glucose, Whole Blood 136 mg/dL (60-115)
[2020-08-23] MEDS: Insulin Glargine,Hum.rec.anlog 100 UNIT/ML 10 ML VIAL 15 UNIT SUBCUT (08:11)
[2020-08-23] MEDS: Valsartan 160 MG TABLET PO (08:12)
[2020-08-23] MEDS: oxyCODONE HCl Immed Release 5 MG TABLET PO (08:13)
[2020-08-23] MEDS: Atorvastatin Calcium 20 MG TABLET PO (08:13)
[2020-08-23] MEDS: 0.9 % Sodium Chloride Flush 3 ML SYRINGE IVFLUSH ×3 (08:14→21:29)
[2020-08-23 09:25] LABS: Creatinine Clr Calc Pharmacy 58.4; Estimated Glomerular Filt Rate 48
--- NOTE | 2020-08-23 10:16 | P.PNIM_ITS ---
Subjective Subjective Date of Service: 08/23/20 Interval History: no complaints Cardiovascular Cardiovascular: Reports no additional cardiovascular complaints Respiratory Respiratory: Reports no additional respiratory complaints Physical Exam Vital Signs: Vital Signs: Last Vital Signs Temp 97.0 F 08/23/20 07:08 Pulse 59 08/23/20 07:08 Resp 17 08/23/20 07:08 BP 176/77 H 08/23/20 07:08 Pulse Ox 97 08/23/20 07:08 Body Mass Index 30.8 General: AO X 3, no acute distress Resp: CTA bilateral CVS: S1,S2,RRR GI: soft, non tender, non distended Neuro: motor grossly intact Psych: appropriate affect Other: Charcot change right foot. Clean ulcer plantar aspect midfoot extending into the subcutaneous tissue, 3.1 x 0.8 x 0.8 cm. Mild erythema of plantar aspect and mid and lateral dorsum right foot improved from yesterday Objective Data Current Medications Generic Name Dose Route Start Last Admin Trade Name Freq PRN Reason Stop Dose Admin Acetaminophen 650 mg 08/19/20 23:13 08/21/20 20:43 Acetaminophen 325 Mg Tablet PO 650 mg Q6H PRN Administration Pain, Mild (Pain Scale 1-3) Atorvastatin Calcium 20 mg 08/20/20 09:00 08/23/20 08:13 Atorvastatin Calcium 20 Mg Tablet PO 20 mg DAILY [facility] Administration Heparin Sodium (Porcine) 5,000 unit 08/20/20 06:00 08/23/20 05:36 Heparin Sodium,Porcine 5,000 Unit/Ml Vial SUBCUT Not Given Q8H [facility] Vancomycin HCl 1,250 mg/ 250 mls @ 166.667 mls/hr 08/21/20 18:00 08/22/20 20:02 Sodium Chloride IV Infused Q24H [facility] Infusion Insulin Glargine 15 unit 08/20/20 09:00 08/23/20 08:11 Insulin Glargine,Hum.Rec.Anlog 100 Unit/Ml 10 Ml Vial SUBCUT 15 unit DAILY [facility] Administration Insulin Human Lispro 0 unit 08/20/20 07:30 08/23/20 07:56 Insulin Lispro 100 Unit/Ml 3 Ml Vial SUBCUT Not Given QIDACHS [facility] Protocol Magnesium Hydroxide 30 ml 08/19/20 23:13 Milk Of Magnesia 30 Ml Oral.Susp PO DAILY PRN Constipation Melatonin 6 mg 08/19/20 23:13 08/22/20 20:48 Melatonin 3 Mg Tablet PO 6 mg BEDTIME PRN Administration Insomnia Oxycodone HCl 5 mg 08/19/20 23:13 08/23/20 08:13 Oxycodone Hcl Immed Release 5 Mg Tablet PO 5 mg Q6H PRN Administration Pain, Severe (Pain Scale 7-10) Pharmacy Consult 1 each 08/19/20 23:21 Consult Rx Vancomycin Dosing MISCELLANE DAILY PRN Consult order Pharmacy Consult 1 each 08/19/20 23:51 Consult Rx Perform Med Rec MISCELLANE ONCE PRN Consult order Sodium Chloride 3 ml 08/20/20 00:00 08/23/20 08:14 0.9 % Sodium Chloride Flush 3 Ml Syringe IVFLUSH 3 ml QSHIFT [facility] Administration Valsartan 160 mg 08/20/20 09:00 08/23/20 08:12 Valsartan 160 Mg Tablet PO 160 mg DAILY [facility] Administration Labs CBC & Chem 7: 08/21/20 05:46 08/23/20 08:48 Labs: Laboratory Results - last 24 hr 08/22/20 08/22/20 08/22/20 11:27 15:56 20:11 Creatinine Estim Creat Clear Calc Estimated GFR POC Glucose 149 H 185 H 250 H 08/23/20 08/23/20 07:03 08:48 Creatinine 1.15 Estim Creat Clear Calc 58.4 Estimated GFR 48 POC Glucose 136 H Microbiology Microbiology Results: Microbiology 08/19/20 21:16 Gram Stain - Final Foot Right Routine Culture - Final Quality Stroke Does the patient have a stroke diagnosis?: No VTE Prior VTE?: No VTE Risk Level:: Medical - moderate - high VTE Device Contraindication: Patient Refused VTE Drug Contraindication: N/A - Med Ordered Assessment and Plan (1) Diabetic foot ulcer: Status: Deleted Assessment and Plan: 59F presented with worsening right plantar ulcer Acute on chronic diabetic foot ulcer/cellulitis continue vanc ID appreciated - clinda and doxy on discharge s/p bedside debridement by surgery continue iv abx today PVD significant stenosis seen on US, vascular follow up VENKATESH on CKD back to baseline DM insulin
[2020-08-23 11:07] VITALS: BP 175/86; PULSE 65; RESP 18; TEMP 36.2; O2SAT 98
[2020-08-23 11:25] LABS: Glucose, Whole Blood 162 mg/dL (60-115)
--- NOTE | 2020-08-23 11:27 | P.PNGS_ITS ---
Subjective Subjective Date of Service: 08/23/20 Interval history: Feels well, no complaints. Physical Exam Vital Signs: Vital Signs: Last Vital Signs Temp 97.1 F 08/23/20 11:07 Pulse 65 08/23/20 11:07 Resp 18 08/23/20 11:07 BP 175/86 H 08/23/20 11:07 Pulse Ox 98 08/23/20 11:07 Body Mass Index 30.8 Const: General: cooperative, no acute distress and alert Extrem: Other: Chronic ulcer plantar aspect right foot appears clean and stable. Cellulitis dorsum of right foot significantly improved, minimal residua l erythema Progress Note: A&P Assessment and plan (1) Diabetic foot ulcer associated with type 2 diabetes mellitus: Status: Acute (2) Cellulitis: Status: Acute (3) PAD (peripheral artery disease): Status: Acute Assessment and Plan: Continued improvement of cellulitis right foot. Arterial ultrasound reveals evidence of significant peripheral arterial disease of the lower legs. Awaiting further input from Dr. Gamez. Continue antibiotics. Fall Risk Details Current Medications: Current Medications Generic Name Dose Route Start Last Admin Trade Name Freq PRN Reason Stop Dose Admin Acetaminophen 650 mg 08/19/20 23:13 08/21/20 20:43 Acetaminophen 325 Mg Tablet PO 650 mg Q6H PRN Administration Pain, Mild (Pain Scale 1-3) Atorvastatin Calcium 20 mg 08/20/20 09:00 08/23/20 08:13 Atorvastatin Calcium 20 Mg Tablet PO 20 mg DAILY [facility] Administration Heparin Sodium (Porcine) 5,000 unit 08/20/20 06:00 08/23/20 05:36 Heparin Sodium,Porcine 5,000 Unit/Ml Vial SUBCUT Not Given Q8H [facility] Vancomycin HCl 1,250 mg/ 250 mls @ 166.667 mls/hr 08/21/20 18:00 08/22/20 20:02 Sodium Chloride IV Infused Q24H [facility] Infusion Insulin Glargine 15 unit 08/20/20 09:00 08/23/20 08:11 Insulin Glargine,Hum.Rec.Anlog 100 Unit/Ml 10 Ml Vial SUBCUT 15 unit DAILY [facility] Administration Insulin Human Lispro 0 unit 08/20/20 07:30 08/23/20 07:56 Insulin Lispro 100 Unit/Ml 3 Ml Vial SUBCUT Not Given QIDACHS [facility] Protocol Magnesium Hydroxide 30 ml 08/19/20 23:13 Milk Of Magnesia 30 Ml Oral.Susp PO DAILY PRN Constipation Melatonin 6 mg 08/19/20 23:13 08/22/20 20:48 Melatonin 3 Mg Tablet PO 6 mg BEDTIME PRN Administration Insomnia Oxycodone HCl 5 mg 08/19/20 23:13 08/23/20 08:13 Oxycodone Hcl Immed Release 5 Mg Tablet PO 5 mg Q6H PRN Administration Pain, Severe (Pain Scale 7-10) Pharmacy Consult 1 each 08/19/20 23:21 Consult Rx Vancomycin Dosing MISCELLANE DAILY PRN Consult order Pharmacy Consult 1 each 08/19/20 23:51 Consult Rx Perform Med Rec MISCELLANE ONCE PRN Consult order Sodium Chloride 3 ml 08/20/20 00:00 08/23/20 08:14 0.9 % Sodium Chloride Flush 3 Ml Syringe IVFLUSH 3 ml QSHIFT [facility] Administration Valsartan 160 mg 08/20/20 09:00 08/23/20 08:12 Valsartan 160 Mg Tablet PO 160 mg DAILY [facility] Administration Time Spent With Patient Time: Total time spent is greater than 50% in coordination of care (as documented) at patient's floor/unit and/or counseling patient: Time with patient: less than 15 minutes Procedures Date of Service Date of Service: 08/23/20 Quality Stroke Does the patient have a stroke diagnosis?: No VTE Prior VTE?: No VTE Risk Level:: Medical - moderate - high VTE Device Contraindication: Patient Refused VTE Drug Contraindication: N/A - Med Ordered
[2020-08-23] MEDS: Insulin Lispro 100 UNIT/ML 3 ML VIAL SUBCUT ×3 (11:55→21:29)
[2020-08-23 15:05] VITALS: BP 168/78; PULSE 66; RESP 15; TEMP 36.4; O2SAT 99
[2020-08-23 16:30] LABS: Glucose, Whole Blood 255 mg/dL (60-115)
[2020-08-23] MEDS: vancomycin HCL 1,250 MG in 0.9 % Sodium Chloride 250 ML 166.67 MG IV (17:25)
[2020-08-23 19:14] VITALS: BP 178/75; PULSE 68; RESP 15; TEMP 36.2; O2SAT 99
[2020-08-23 20:35] LABS: Glucose, Whole Blood 198 mg/dL (60-115)
[2020-08-23] MEDS: Melatonin 3 MG TABLET 6 MG PO (21:30)
[2020-08-23 23:33] VITALS: BP 162/72; PULSE 63; RESP 18; TEMP 36.1; O2SAT 96
[2020-08-24 03:25] VITALS: BP 160/69; PULSE 61; RESP 16; TEMP 36.1; O2SAT 95
[2020-08-24 07:19] VITALS: BP 158/70; PULSE 67; RESP 18; TEMP 36.6; O2SAT 97
[2020-08-24 07:30] LABS: Glucose, Whole Blood 169 mg/dL (60-115)
[2020-08-24] MEDS: Valsartan 160 MG TABLET PO (08:11)
[2020-08-24] MEDS: Atorvastatin Calcium 20 MG TABLET PO (08:11)
[2020-08-24] MEDS: Insulin Glargine,Hum.rec.anlog 100 UNIT/ML 10 ML VIAL 15 UNIT SUBCUT (08:11)
[2020-08-24] MEDS: 0.9 % Sodium Chloride Flush 3 ML SYRINGE IVFLUSH ×2 (08:12→17:59)
[2020-08-24] MEDS: Insulin Lispro 100 UNIT/ML 3 ML VIAL SUBCUT ×4 (08:12→20:29)
--- NOTE | 2020-08-24 09:43 | HO.PM.IMPN ---
Subjective Subjective Date of Service: 08/24/20 Interval History: no complaints Cardiovascular Cardiovascular: Reports no additional cardiovascular complaints Gastrointestinal Gastrointestinal: Reports no additional gastrointestinal complaints Physical Exam Vital Signs: Vital Signs: Last Vital Signs Temp 98 F 08/24/20 07:19 Pulse 67 08/24/20 07:19 Resp 18 08/24/20 07:19 BP 158/70 H 08/24/20 07:19 Pulse Ox 97 08/24/20 07:19 Body Mass Index 30.8 General: AO X 3, no acute distress Resp: CTA bilateral CVS: S1,S2,RRR GI: soft, non tender, non distended Neuro: motor grossly intact Psych: appropriate affect Other: Charcot change right foot. Clean ulcer plantar aspect midfoot extending into the subcutaneous tissue, 3.1 x 0.8 x 0.8 cm. Mild erythema of plantar aspect and mid and lateral dorsum right foot Objective Data Current Medications Generic Name Dose Route Start Last Admin Trade Name Freq PRN Reason Stop Dose Admin Acetaminophen 650 mg 08/19/20 23:13 08/21/20 20:43 Acetaminophen 325 Mg Tablet PO 650 mg Q6H PRN Administration Pain, Mild (Pain Scale 1-3) Atorvastatin Calcium 20 mg 08/20/20 09:00 08/24/20 08:11 Atorvastatin Calcium 20 Mg Tablet PO 20 mg DAILY [facility] Administration Heparin Sodium (Porcine) 5,000 unit 08/20/20 06:00 08/24/20 05:05 Heparin Sodium,Porcine 5,000 Unit/Ml Vial SUBCUT Not Given Q8H [facility] Vancomycin HCl 1,250 mg/ 250 mls @ 166.667 mls/hr 08/21/20 18:00 08/23/20 19:21 Sodium Chloride IV Infused Q24H [facility] Infusion Insulin Glargine 15 unit 08/20/20 09:00 08/24/20 08:11 Insulin Glargine,Hum.Rec.Anlog 100 Unit/Ml 10 Ml Vial SUBCUT 15 unit DAILY [facility] Administration Insulin Human Lispro 0 unit 08/20/20 07:30 08/24/20 08:12 Insulin Lispro 100 Unit/Ml 3 Ml Vial SUBCUT 2 unit QIDACHS [facility] Administration Protocol Magnesium Hydroxide 30 ml 08/19/20 23:13 Milk Of Magnesia 30 Ml Oral.Susp PO DAILY PRN Constipation Melatonin 6 mg 08/19/20 23:13 08/23/20 21:30 Melatonin 3 Mg Tablet PO 6 mg BEDTIME PRN Administration Insomnia Oxycodone HCl 5 mg 08/19/20 23:13 08/23/20 08:13 Oxycodone Hcl Immed Release 5 Mg Tablet PO 5 mg Q6H PRN Administration Pain, Severe (Pain Scale 7-10) Pharmacy Consult 1 each 08/19/20 23:21 Consult Rx Vancomycin Dosing MISCELLANE DAILY PRN Consult order Pharmacy Consult 1 each 08/19/20 23:51 Consult Rx Perform Med Rec MISCELLANE ONCE PRN Consult order Sodium Chloride 3 ml 08/20/20 00:00 08/24/20 08:12 0.9 % Sodium Chloride Flush 3 Ml Syringe IVFLUSH 3 ml QSHIFT [facility] Administration Valsartan 160 mg 08/20/20 09:00 08/24/20 08:11 Valsartan 160 Mg Tablet PO 160 mg DAILY [facility] Administration Labs CBC & Chem 7: 08/21/20 05:46 08/23/20 08:48 Labs: Laboratory Results - last 24 hr 08/23/20 08/23/20 08/23/20 11:16 16:23 20:30 POC Glucose 162 H 255 H 198 H 08/24/20 07:19 POC Glucose 169 H Quality Stroke Does the patient have a stroke diagnosis?: No VTE Prior VTE?: No VTE Risk Level:: Medical - moderate - high VTE Device Contraindication: Patient Refused VTE Drug Contraindication: N/A - Med Ordered Assessment and Plan (1) Diabetic foot ulcer: Status: Deleted Assessment and Plan: 59F presented with worsening right plantar ulcer Acute on chronic diabetic foot ulcer/cellulitis continue vanc ID appreciated - clinda and doxy on discharge s/p bedside debridement by surgery PVD significant stenosis seen on US, plan for angio tomorrow VENKATESH on CKD back to baseline DM insulin
--- NOTE | 2020-08-24 09:57 | PC.NURSE ---
Skin/Wound assessment completed today. Dressing changed-very scant serosanguenous drainage. Silver aliginate tucked into wound and tail left out, covered with gauze and roll gauze.
--- NOTE | 2020-08-24 11:02 | PC.NURSE ---
Skin/Wound assessment completed today. Patient has a left Charcot foot with plantar diabetic foot ulcer. Cleaned with normal saline, packed with silver alginate- covered with gauze and gauze roll. Very scant sanguineous drainage.
[2020-08-24 11:20] VITALS: BP 178/75; PULSE 66; RESP 18; TEMP 36.1; O2SAT 96
[2020-08-24 11:24] LABS: Glucose, Whole Blood 176 mg/dL (60-115)
--- NOTE | 2020-08-24 13:02 | P.PNVS_ITS ---
Subjective Subjective Date of Service: 08/24/20 Patient reports: no new complaints and feels better Interval history: Very pleasant 60-year-old female well known to me for nonhealing right lower extremity ulcer is now for follow-up. She has had no events over the past weekend. Has been tolerating antibiotics. Denies any significant pain. Of note she has consistent right lower extremity diabetic foot ulcers and Charcot foot. She has had noninvasive arterial testing and now for follow-up. Physical Exam Vital Signs: Vital Signs: Last Vital Signs Temp 97 F 08/24/20 11:20 Pulse 66 08/24/20 11:20 Resp 18 08/24/20 11:20 BP 178/75 H 08/24/20 11:20 Pulse Ox 96 08/24/20 11:20 Body Mass Index 30.8 Const: General: cooperative, healthy appearing and no acute distress Orientation/consciousness: oriented to person, oriented to place and oriented to time HENMT: Head: Yes normal to inspection Neck: Carotids: no bruits Chest: Chest palpation & inspection: normal inspection of the chest Resp: Effort & Inspection: normal respiratory effort and able to speak in complete sentences Auscultation: clear to auscultation bilaterally Cardio: Rate: regular rate Heart sounds: S1 normal heart sound present and S2 normal heart sound present GI: Inspection: Yes normal to inspection Skin: General skin exam: no rashes or lesions noted Wounds: wounds noted (Right foot) Neuro: General: oriented to person, oriented to place, oriented to time and CN's II-XI intact bilaterally Extrem: General: Yes normal to inspection, Yes full ROM and Yes no clubbing, cyanosis or edema Psych: Appearance: grossly normal and well kempt Speech and movement: Normal speech and movement present Affect: normal affect Progress Note: A&P Assessment and plan (1) PAD (peripheral artery disease): Status: Acute Assessment and Plan: Patient notes nonhealing right foot ulcer. I have discussed the pathophysiology of peripheral vascular disease with the patient. I have also discussed risk factor modification. I have reviewed the patient's arterial testing which reveals right distal SFA to popliteal disease. the patient would benefit from a right leg endovascular peripheral angiogram with possible angioplasty, stent, and/or atherectomy. This has been discussed in detail with the patient along with risks, benefits, and complications. This includes but is not limited to bleeding, infection, heart attack, need for emergent surgical repair, limb ischemia, blood vessel damage, bleeding, puncture, kidney injury, bruising, allergic reaction, and skin reaction. The patient demonstrates a clear understanding. We will schedule for tomorrow. Thank you for allowing us to assist in this patient's care. Fall Risk Details Current Medications: Current Medications Generic Name Dose Route Start Last Admin Trade Name Freq PRN Reason Stop Dose Admin Acetaminophen 650 mg 08/19/20 23:13 08/21/20 20:43 Acetaminophen 325 Mg Tablet PO 650 mg Q6H PRN Administration Pain, Mild (Pain Scale 1-3) Atorvastatin Calcium 20 mg 08/20/20 09:00 08/24/20 08:11 Atorvastatin Calcium 20 Mg Tablet PO 20 mg DAILY [facility] Administration Heparin Sodium (Porcine) 5,000 unit 08/20/20 06:00 08/24/20 12:27 Heparin Sodium,Porcine 5,000 Unit/Ml Vial SUBCUT Not Given Q8H [facility] Vancomycin HCl 1,250 mg/ 250 mls @ 166.667 mls/hr 08/21/20 18:00 08/23/20 19:21 Sodium Chloride IV Infused Q24H [facility] Infusion Insulin Glargine 15 unit 08/20/20 09:00 08/24/20 08:11 Insulin Glargine,Hum.Rec.Anlog 100 Unit/Ml 10 Ml Vial SUBCUT 15 unit DAILY [facility] Administration Insulin Human Lispro 0 unit 08/20/20 07:30 08/24/20 12:26 Insulin Lispro 100 Unit/Ml 3 Ml Vial SUBCUT 2 unit QIDACHS [facility] Administration Protocol Magnesium Hydroxide 30 ml 08/19/20 23:13 Milk Of Magnesia 30 Ml Oral.Susp PO DAILY PRN Constipation Melatonin 6 mg 08/19/20 23:13 08/23/20 21:30 Melatonin 3 Mg Tablet PO 6 mg BEDTIME PRN Administration Insomnia Oxycodone HCl 5 mg 08/19/20 23:13 08/23/20 08:13 Oxycodone Hcl Immed Release 5 Mg Tablet PO 5 mg Q6H PRN Administration Pain, Severe (Pain Scale 7-10) Pharmacy Consult 1 each 08/19/20 23:21 Consult Rx Vancomycin Dosing MISCELLANE DAILY PRN Consult order Pharmacy Consult 1 each 08/19/20 23:51 Consult Rx Perform Med Rec MISCELLANE ONCE PRN Consult order Sodium Chloride 3 ml 08/20/20 00:00 08/24/20 08:12 0.9 % Sodium Chloride Flush 3 Ml Syringe IVFLUSH 3 ml QSHIFT [facility] Administration Valsartan 160 mg 08/20/20 09:00 08/24/20 08:11 Valsartan 160 Mg Tablet PO 160 mg DAILY [facility] Administration Time Spent With Patient Time: Total time spent is greater than 50% in coordination of care (as documented) at patient's floor/unit and/or counseling patient: Time with patient: 25 - 35 minutes Procedures Date of Service Date of Service: 08/24/20 Quality Stroke Does the patient have a stroke diagnosis?: No VTE Prior VTE?: No VTE Risk Level:: Medical - moderate - high VTE Device Contraindication: Patient Refused VTE Drug Contraindication: N/A - Med Ordered
--- NOTE | 2020-08-24 15:19 | PM.IDPN ---
Subjective Subjective Date of Service: 08/24/20 Critical Care Time (minutes): 15 Comment: she is sleepy she has foot still some redness Objective Data Labs CBC & Chem 7: 08/21/20 05:46 08/23/20 08:48 Labs: Laboratory Results - last 24 hr 08/23/20 08/23/20 08/24/20 16:23 20:30 07:19 POC Glucose 255 H 198 H 169 H 08/24/20 11:20 POC Glucose 176 H Microbiology Microbiology Results: Microbiology 08/19/20 21:16 Foot Right Gram Stain - Final 08/19/20 21:16 Foot Right Routine Culture - Final Physical Exam Vital Signs: Vital Signs: Last Vital Signs Temp 97 F 08/24/20 11:20 Pulse 66 08/24/20 11:20 Resp 18 08/24/20 11:20 BP 178/75 H 08/24/20 11:20 Pulse Ox 96 08/24/20 11:20 Body Mass Index 30.8 Const: General: cooperative HENMT: Head: Yes normal to inspection Mouth: Normal oral and palatal mucosa present Resp: Effort & Inspection: normal respiratory effort Cardio: Rate: regular rate Rhythm: regular rhythm GI: Palpation (GI): Soft to palpation and nontender Extrem: Other: right lateral foot swelling Assessment and Plan Assessment and plan (1) Diabetic foot ulcer associated with type 2 diabetes mellitus: Problem details: She has ongoing diabetic foot infection She is on Vancomycin Apparently she is getting angiogram tomorrow Would switch to po Doxycycline and Clindamycin on discharge Status: Acute (2) PAD (peripheral artery disease): Status: Acute Time Spent With Patient Time: Total time spent is greater than 50% in coordination of care (as documented) at patient's floor/unit and/or counseling patient: Time with patient: 15 - 24 minutes
--- NOTE | 2020-08-24 15:43 | MHC.CM.PN ---
PLAN IS ANGIOGRAM MONDAY AND LIKELY DISCHARGE HOME MONDAY.
[2020-08-24 17:00] LABS: Glucose, Whole Blood 213 mg/dL (60-115)
[2020-08-24 18:00] LABS: Vancomycin Trough 17.7 mcg/mL (10.0-20.0)
[2020-08-24] MEDS: vancomycin HCL 1,250 MG in 0.9 % Sodium Chloride 250 ML 166.67 MG IV (18:37)
[2020-08-24 20:29] LABS: Glucose, Whole Blood 189 mg/dL (60-115)
[2020-08-25] VITALS (7 sets, daily range): BP systolic 172–194; BP diastolic 67–82; PULSE 57–71; RESP 15–18; TEMP 36–36.6; O2SAT 97–99
--- NOTE | 2020-08-25 06:41 | PC.NURSE ---
RECEIVED CALL FROM [facility] RN AT [phone] FOR PATIENT REPORT AND WAS ASKED TO HAVE PATINET DOWN BY [id number]. 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 RN REPORTED 2 RN'S ATTEMPTED A NEW SITE ALONG WITH AN ICU NURSE WITH NO LUCK. PATIENT THEN DECLINED FURTHER ATTEMPTS. NURSING FOREIGN LANGUAGE INSTRUCTOR AWARE OF THIS, HOWEVER, PATIENT DECLINED AND WANTED TO WAIT UNTIL THE AM. PT ALSO DECLINED HER AM LABDRAW. [facility] WAS INFORMED OF ALL AND WERE WAITING ON DR MELARA FOR FURTHER INSTRUCTIONS. [facility] WAS RECEIVED TO TRANSPORT PT, THEN THEY INQUIRED IF SOMEONE WAS COMING TO [facility] TO START AN IV. NURSING FOREIGN LANGUAGE INSTRUCTOR UPDATED AND SHE TOOK OVER THE PLAN OF CARE BY CALLING [facility] AND SUGGESTING ANESTHESIA ATTEMPT, AND WILL CONTINUE TO CONFER WITH [facility] TO CORRECT. PATIENT WAS DELIVERED TO [facility] VIA W/C BY FLOOR LOADING INSPECTOR.
[2020-08-25] MEDS: iohexoL 350 MG/ML 100 ML INFUS..BTL IV (09:08)
[2020-08-25] MEDS: Lidocaine HCl 1 % MPF 5 ML VIAL SUBCUT (09:09)
--- NOTE | 2020-08-25 09:25 | P.OP_ITS ---
Operative Note Operative Note Date of Service: 08/25/20 Narrative: Angiogram report from [facility] Preoperative diagnosis: Atherosclerosis of right lower extremity with nonhealing right lower extremity ulcer Postoperative diagnosis: Same Procedure: 1. Ultrasound-guided left common femoral access 2. Aortogram with right lower extremity runoff Surgeon:Feroz Gamez M.D. [employer] Heavy Service:None Anesthesia: Local with moderate conscious sedation for a total of 26 minutes, performed by ok Specimens:none Drains:none Estimated blood loss: Less than 10 ml Indications: 60-year-old diabetic female with Charcot foot has nonhealing right lower extremity ulcer. Noninvasive testing was concerning for SFA and popliteal disease. She now presents for right lower extremity angiogram The patient has signed the informed consent after reviewing risks, complications, benefits, and alternatives previously discussed with the patient. The patient was given the opportunity to ask any additional questions or voice any concerns. All questions were answered to the patient's satisfaction. Procedure in detail: Patient was brought to the angiography suite prior to which a time-out was called for patient identification and site verification. Bilateral groins were prepped and draped in the standard surgical fashion. Under ultrasound guidance left common femoral was punctured with micro puncture needle and wire. Subsequently a precision 4 Kyr[place]z sheath was then placed. OopsLab wire was advanced to the level of the aorta. 4 [place]z Flush catheter was brought up and parked at the level of the renal arteries. Aortogram was then undertaken. Catheter was brought down to the level of the iliac bifurcation. Iliacs were subsequently imaged. Catheter was then brought in up and over to the right side SFA. Runoff study was then undertaken. Multiple orthogonal views were undertaken. No intervention was indicated. Catheter wire sheath was then removed. Direct pressure was held for 10 minutes in duration. Patient tolerated the procedure well. Returned to recovery with stable vitals. Interpretation of films: 1. Ultrasound demonstrates appropriate femoral puncture. Image of which was saved. 2. Aortogram demonstrates appropriate caliber aorta. Minimal disease. Appropriate take-off of the renals. 3. Iliac images demonstrate some mild tortuosity. No significant disease. 4. Right lower extremity study demonstrated good flow through the common femoral SFA and popliteal. Profundus had normal takeoff and good flow. Below-knee vessels all 3 were present anterior tibial and posterior tibial were dominant and present all the way down to the level of the ankle. Peroneal did have some mild to moderate disease throughout but did flow all the way down to the level of the ankle as well. Conclusion: 1. Successful diagnostic angiogram. Good flow all the way down to the level of the foot. No intervention indicated. Appears to have small vessel disease in the foot. This note is constructed using voice recognition software. While every effort has been made to ensure accuracy, casing crew pusher errors may have been included. Thank you for allowing me to participate in the care of your patient. Yours sincerely, Feroz Gamez MD, FACS, R.P.V.I.
[2020-08-25 11:58] LABS: Glucose, Whole Blood 146 mg/dL (60-115)
[2020-08-25] MEDS: Atorvastatin Calcium 20 MG TABLET PO (12:32)
[2020-08-25] MEDS: Valsartan 160 MG TABLET PO (12:32)
[2020-08-25] MEDS: Insulin Glargine,Hum.rec.anlog 100 UNIT/ML 10 ML VIAL 15 UNIT SUBCUT (12:32)
--- NOTE | 2020-08-25 13:07 | HO.PM.IMPN ---
Subjective Subjective Date of Service: 08/25/20 Interval History: no complaints Cardiovascular Cardiovascular: Reports no additional cardiovascular complaints Respiratory Respiratory: Reports no additional respiratory complaints Physical Exam Vital Signs: Vital Signs: Last Vital Signs Temp 96.8 F 08/25/20 12:24 Pulse 65 08/25/20 12:24 Resp 17 08/25/20 12:24 BP 189/81 H 08/25/20 12:24 Pulse Ox 99 08/25/20 12:24 Body Mass Index 30.8 General: AO X 3, no acute distress Resp: CTA bilateral CVS: S1,S2,RRR GI: soft, non tender, non distended Neuro: motor grossly intact Psych: appropriate affect Other: Charcot change right foot. Objective Data Current Medications Generic Name Dose Route Start Last Admin Trade Name Freq PRN Reason Stop Dose Admin Acetaminophen 650 mg 08/19/20 23:13 08/21/20 20:43 Acetaminophen 325 Mg Tablet PO 650 mg Q6H PRN Administration Pain, Mild (Pain Scale 1-3) Atorvastatin Calcium 20 mg 08/20/20 09:00 08/25/20 12:32 Atorvastatin Calcium 20 Mg Tablet PO 20 mg DAILY [facility] Administration Heparin Sodium (Porcine) 5,000 unit 08/20/20 06:00 08/25/20 12:33 Heparin Sodium,Porcine 5,000 Unit/Ml Vial SUBCUT Not Given Q8H [facility] Vancomycin HCl 1,250 mg/ 250 mls @ 166.667 mls/hr 08/21/20 18:00 08/24/20 20:47 Sodium Chloride IV Infused Q24H [facility] Infusion Insulin Glargine 15 unit 08/20/20 09:00 08/25/20 12:32 Insulin Glargine,Hum.Rec.Anlog 100 Unit/Ml 10 Ml Vial SUBCUT 15 unit DAILY [facility] Administration Insulin Human Lispro 0 unit 08/20/20 07:30 08/25/20 12:32 Insulin Lispro 100 Unit/Ml 3 Ml Vial SUBCUT Not Given QIDACHS [facility] Protocol Magnesium Hydroxide 30 ml 08/19/20 23:13 Milk Of Magnesia 30 Ml Oral.Susp PO DAILY PRN Constipation Melatonin 6 mg 08/19/20 23:13 08/23/20 21:30 Melatonin 3 Mg Tablet PO 6 mg BEDTIME PRN Administration Insomnia Pharmacy Consult 1 each 08/19/20 23:21 Consult Rx Vancomycin Dosing MISCELLANE DAILY PRN Consult order Pharmacy Consult 1 each 08/19/20 23:51 Consult Rx Perform Med Rec MISCELLANE ONCE PRN Consult order Sodium Chloride 3 ml 08/20/20 00:00 08/25/20 10:15 0.9 % Sodium Chloride Flush 3 Ml Syringe IVFLUSH Not Given QSHIFT [facility] Valsartan 160 mg 08/20/20 09:00 08/25/20 12:32 Valsartan 160 Mg Tablet PO 160 mg DAILY [facility] Administration Labs CBC & Chem 7: 08/21/20 05:46 08/23/20 08:48 Labs: Laboratory Results - last 24 hr 08/24/20 08/24/20 08/24/20 16:53 17:13 20:24 POC Glucose 213 H 189 H Vancomycin Trough 17.7 08/25/20 11:54 POC Glucose 146 H Vancomycin Trough Quality Stroke Does the patient have a stroke diagnosis?: No VTE Prior VTE?: No VTE Risk Level:: Medical - moderate - high VTE Device Contraindication: Patient Refused VTE Drug Contraindication: N/A - Med Ordered Assessment and Plan (1) Diabetic foot ulcer: Status: Deleted Assessment and Plan: 59F presented with worsening right plantar ulcer Acute on chronic diabetic foot ulcer/cellulitis continue vanc ID appreciated - initially planned for clinda and doxy on discharge, however, patient reports intolerance to clinda (diarrhea), will do doxy alone s/p bedside debridement by surgery shukri jolley on orals tomorrow PVD significant stenosis seen on US, s/p angio today - had good flow, no intervention performed VENKATESH on CKD back to baseline DM insulin
--- NOTE | 2020-08-25 15:46 | PC.NURSE ---
Patient returned from angiogram at 1200. Peripheral and femoral pulses checked by doppler. Denies pain. Remained bedrest for 2 hours.
[2020-08-25 16:57] LABS: Glucose, Whole Blood 176 mg/dL (60-115)
[2020-08-25] MEDS: 0.9 % Sodium Chloride Flush 3 ML SYRINGE IVFLUSH (17:34)
[2020-08-25] MEDS: Insulin Lispro 100 UNIT/ML 3 ML VIAL SUBCUT ×2 (17:34→21:02)
[2020-08-25] MEDS: vancomycin HCL 1,250 MG in 0.9 % Sodium Chloride 250 ML 166.66 MG IV (17:35)
--- NOTE | 2020-08-25 17:59 | PC.NURSE ---
P BP elevated 194/76 pulse 68 I-Dr. Solorio notified e-awaiting new orders
[2020-08-25 20:25] LABS: Glucose, Whole Blood 204 mg/dL (60-115)
[2020-08-25] MEDS: hydrALAZINE HCl 25 MG TABLET PO (21:03)
[2020-08-26] MEDS: 0.9 % Sodium Chloride Flush 3 ML SYRINGE IVFLUSH ×2 (00:21→07:56)
[2020-08-26 00:34] VITALS: BP 180/68; PULSE 66; RESP 16; TEMP 36.4; O2SAT 97
--- NOTE | 2020-08-26 02:10 | PC.NURSE ---
BLOOD PRESSURE REMAINS ELEVATED FOR THIS PATIENT ON 0000 ROUNDS; 97.5-66-16-180/68-97% ROOM AIR. PATIENT DENIES HEADACHE, DIZZINESS, FEELING LIGHTHEADED. NOTED HOSPITALIST WAS UPDATED PREVIOUS SHIFT AND HYDRALAZINE ORDERED TID AND STARTED ON EVENINGS. BP DID LOWER SLIGHTLY FROM PREVIOUS READING. HOSPITALIST UPDATED APPROX., 0030 VIA [employer] TEXT AND RESPONSE WAS DELIVERED WITH NO NEW ORDERS AT THIS TIME. WILL CONTINUE TO MONITOR
[2020-08-26 03:20] VITALS: BP 155/68; PULSE 65; RESP 16; TEMP 36.7; O2SAT 97
--- NOTE | 2020-08-26 04:31 | PC.NURSE ---
blood pressure noted to be improved at 155/68 for 0 rounds
[2020-08-26 06:58] LABS: Hematocrit 30.3 % (37-47); Hemoglobin 9.7 g/dl (12.0-16.0); Mean Corpuscular Hemoglobin 27.2 pg (27.0-33.0); Mean Corpuscular Volume 84.9 fL (80-98); Mean Platelet Volume 9.4 fL (9.4-12.3); Platelet Count 481 X10*3/uL (160-400); Red Blood Count 3.57 X10*6/uL (4.20-5.50); Red Cell Distribution Width 14.1 % (11.0-16.0)
[2020-08-26 07:24] LABS: Anion Gap 15 (12-20); Blood Urea Nitrogen 23 mg/dL (9-16); Calcium 8.8 mg/dL (8.4-10.2); Carbon Dioxide 20 mmol/L (22-29); Chloride 108 mmol/L (96-108); Creatinine Clr Calc Pharmacy 57.9; Estimated Glomerular Filt Rate 48; Glucose Fasting 159 mg/dL (60-99); Potassium 5.1 mmol/L (3.3-5.1); Sodium 138 mmol/L (135-145)
[2020-08-26] MEDS: Insulin Lispro 100 UNIT/ML 3 ML VIAL SUBCUT ×2 (07:55→11:36)
[2020-08-26] MEDS: Valsartan 160 MG TABLET PO (07:56)
[2020-08-26] MEDS: Atorvastatin Calcium 20 MG TABLET PO (07:56)
[2020-08-26] MEDS: hydrALAZINE HCl 25 MG TABLET PO (07:58)
[2020-08-26 08:00] VITALS: BP 189/82; PULSE 68; RESP 16; TEMP 36.1; O2SAT 97
[2020-08-26 08:19] LABS: Glucose, Whole Blood 165 mg/dL (60-115)
--- NOTE | 2020-08-26 09:50 | P.PNVS_ITS ---
Subjective Subjective Date of Service: 08/26/20 Patient reports: no new complaints and feels better Interval history: Patient seen and examined. Postop day 1 status post right lower extremity diagnostic angiogram. No postprocedure issues. Feels quite well. Now for routine postprocedure check and evaluation of wound. Physical Exam Vital Signs: Vital Signs: Last Vital Signs Temp 96.9 F 08/26/20 08:00 Pulse 68 08/26/20 08:00 Resp 16 08/26/20 08:00 BP 189/82 H 08/26/20 08:00 Pulse Ox 97 08/26/20 08:00 Body Mass Index 30.8 Const: General: cooperative, healthy appearing and no acute distress Orientation/consciousness: oriented to person, oriented to place and oriented to time HENMT: Head: Yes normal to inspection Neck: Carotids: no bruits Chest: Chest palpation & inspection: normal inspection of the chest Resp: Effort & Inspection: normal respiratory effort and able to speak in complete sentences Auscultation: clear to auscultation bilaterally Cardio: Rate: regular rate Heart sounds: S1 normal heart sound present and S2 normal heart sound present GI: Inspection: Yes normal to inspection Skin: General skin exam: no rashes or lesions noted Wounds: wounds noted (Right plantar surface 2.5 cm) Neuro: General: oriented to person, oriented to place, oriented to time and CN's II-XI intact bilaterally Extrem: General: Yes normal to inspection, Yes full ROM and Yes no clubbing, cyanosis or edema Psych: Appearance: grossly normal and well kempt Speech and movement: Normal speech and movement present Affect: normal affect Progress Note: A&P Assessment and plan (1) PAD (peripheral artery disease): Status: Acute Assessment and Plan: Patient is stable from diagnostic angiogram yesterday. Appears to be doing relatively well. Stable from my perspective for discharge. [facility] She can follow up with me as an outpatient in approximately 2 weeks time. Thank you for allowing us to assist in her care. If there are any questions or concerns please do not hesitate to contact us. Fall Risk Details Current Medications: Current Medications Generic Name Dose Route Start Last Admin Trade Name Freq PRN Reason Stop Dose Admin Acetaminophen 650 mg 08/19/20 23:13 08/21/20 20:43 Acetaminophen 325 Mg Tablet PO 650 mg Q6H PRN Administration Pain, Mild (Pain Scale 1-3) Atorvastatin Calcium 20 mg 08/20/20 09:00 08/26/20 07:56 Atorvastatin Calcium 20 Mg Tablet PO 20 mg DAILY [facility] Administration Heparin Sodium (Porcine) 5,000 unit 08/20/20 06:00 08/26/20 05:46 Heparin Sodium,Porcine 5,000 Unit/Ml Vial SUBCUT Not Given Q8H [facility] Hydralazine HCl 25 mg 08/25/20 21:00 08/26/20 07:58 Hydralazine Hcl 25 Mg Tablet PO 25 mg TID [facility] Administration Protocol Vancomycin HCl 1,250 mg/ 250 mls @ 166.667 mls/hr 08/21/20 18:00 08/25/20 20:55 Sodium Chloride IV Infused Q24H [facility] Infusion Insulin Glargine 15 unit 08/20/20 09:00 08/25/20 12:32 Insulin Glargine,Hum.Rec.Anlog 100 Unit/Ml 10 Ml Vial SUBCUT 15 unit DAILY [facility] Administration Insulin Human Lispro 0 unit 08/20/20 07:30 08/26/20 07:55 Insulin Lispro 100 Unit/Ml 3 Ml Vial SUBCUT 2 unit QIDACHS [facility] Administration Protocol Magnesium Hydroxide 30 ml 08/19/20 23:13 Milk Of Magnesia 30 Ml Oral.Susp PO DAILY PRN Constipation Melatonin 6 mg 08/19/20 23:13 08/23/20 21:30 Melatonin 3 Mg Tablet PO 6 mg BEDTIME PRN Administration Insomnia Pharmacy Consult 1 each 08/19/20 23:21 Consult Rx Vancomycin Dosing MISCELLANE DAILY PRN Consult order Pharmacy Consult 1 each 08/19/20 23:51 Consult Rx Perform Med Rec MISCELLANE ONCE PRN Consult order Sodium Chloride 3 ml 08/20/20 00:00 08/26/20 07:56 0.9 % Sodium Chloride Flush 3 Ml Syringe IVFLUSH 3 ml QSHIFT [facility] Administration Valsartan 160 mg 08/20/20 09:00 08/26/20 07:56 Valsartan 160 Mg Tablet PO 160 mg DAILY [facility] Administration Time Spent With Patient Time: Total time spent is greater than 50% in coordination of care (as documented) at patient's floor/unit and/or counseling patient: Time with patient: 15 - 24 minutes Procedures Date of Service Date of Service: 08/26/20 Quality Stroke Does the patient have a stroke diagnosis?: No VTE Prior VTE?: No VTE Risk Level:: Medical - moderate - high VTE Device Contraindication: Patient Refused VTE Drug Contraindication: N/A - Med Ordered
[2020-08-26] MEDS: Insulin Glargine,Hum.rec.anlog 100 UNIT/ML 10 ML VIAL 15 UNIT SUBCUT (10:21)
--- NOTE | 2020-08-26 10:42 | P.DS_ITS ---
DS: Providers Provider Date of Service: 08/26/20 Date of admission: 08/19/20 23:13 Primary care physician: Kristin Bellamy MD Consults: 08/19/20 23:21 Consult to Infectious Diseases Routine Consulting Provider: Jen Carlton Reason for consultation: DM foot ulcer 08/19/20 23:25 Consult to Vascular Surgery Routine Consulting Provider: Feroz Gamez Reason for consultation: DM foot ulcer 08/21/20 09:10 Consult to General Surgery Routine Consulting Provider: Unruly Mcbride Reason for consultation: plantar ulcer DS: Diagnosis Discharge Diagnosis (1) PAD (peripheral artery disease): Status: Acute (2) Diabetic foot ulcer associated with type 2 diabetes mellitus: Status: Acute (3) Cellulitis: Status: Acute (4) Uncontrolled hypertension: Status: Acute DS: Medications Discharge Medications Home Medications: Home Medications Medication Instructions Recorded Confirmed FreeStyle Amber 14 Day Sensor 08/19/20 08/19/20 Humalog KwikPen Insulin See Protocol SUBCUT TIDAC 08/19/20 08/19/20 Toujeo SoloStar U-300 Insulin 48 unit SUBCUT DAILY 08/19/20 08/19/20 atorvastatin 1 tab PO DAILY 08/19/20 08/19/20 ferrous sulfate 1 tab PO DAILY 08/19/20 08/19/20 furosemide 1 tab PO BID 08/19/20 08/19/20 irbesartan 1 tab PO DAILY 08/19/20 08/19/20 pen needle, diabetic [BD Adela 2nd 08/19/20 08/19/20 Gen Pen Needle] Previous Rx's Medication Instructions Recorded doxycycline monohydrate 100 mg PO BID #20 cap 08/26/20 hydralazine 25 mg PO TID #90 tab 08/26/20 hydrochlorothiazide 25 mg PO QAM #30 tab 08/26/20 DS: Summary Hospital Course Hospital Course: Admission note HPI 59-year-old female with a past medical history of hypertension, hyperlipidemia, diabetes, history of diabetic foot ulcer, history of right foot osteomyelitis; presents today with a chief complaint of right foot ulcer on the plantar surface of the foot has been having increased pain and mild surrounding erythema since last Monday, limiting her ambulation; decided to come to the ER for further evaluation. Patient reported having chills. Denies any discharge. Reports that she has chronic open wound on the right foot plantar site, open wound, regularly follows with the wound clinic. Patient mentioned that she has allergies to penicillin, cephalosporins, clindamycin but took vancomycin and Levaquin in the past. patient reports that she takes Lasix for peripheral edema. Denies any urinary complaints or GI symptoms. Denies any chest pain palpitations lightheadedness or dizziness. Review of all other systems is negative except mentioned above Hospital course The patient was admitted to the hospital for treatment of right lower extremity foot ulcer. Treated with IV antibiotics of vancomyci and Levaquin at time of presentation. Evaluated by infectious disease who recommended treatment with vancomycin and was evaluated by vascular surgery who did CTA angiogram which did not show any major obstruction. Debridement was done with removal of the tissue as the cellulitis resolved. Id recommended doxycycline on time of discharge S the patient develops diarrhea with clindamycin. To finish 10 more days of antibiotics and to follow as outpatient for the wound care pain. Blood pressure was noticed to be significantly elevated with systolic blood pressure around 180s. Patient started on hydralazine along with her home dose of Irbesartan. Hydrochlorothiazide was added at the time of discharge with a plan to monitor blood pressure at home and report readings to PCP for further adjustments. Time Spent with Patient Time attestation: Total time spent providing and/or coordinating discharge services: Discharge coordination time: Greater than 30 minutes Quality: Stroke Does the patient have a stroke diagnosis?: No Physical Exam Vital Signs: Vital Signs: Last Vital Signs Temp 96.9 F 08/26/20 08:00 Pulse 68 08/26/20 08:00 Resp 16 08/26/20 08:00 BP 189/82 H 08/26/20 08:00 Pulse Ox 97 08/26/20 08:00 Body Mass Index 30.8 Const: Other: Constitutional : Alert, oriented, Neck : Normal inspection, Supple Cardiovascular : RRR, S1 S2, no lower extremity edema Respiratory : Good bilateral air entry, no crackles, wheezes or rhonchi Gastrointestinal: soft, lax, Normal bowel sounds, Non tender Skin : Warm/Dry, diabetic foot ulcer, resolving cellulitis, no drainage, no tenderness. Neurological : Alert & oriented x3, No focal deficit DS: Data Data Completed and Pending Labs on day of discharge: Laboratory Results - last 24 hr 08/25/20 08/25/20 08/25/20 11:54 16:53 20:20 WBC RBC Hgb Hct MCV MCH MCHC RDW Plt Count MPV Absolute Nucleated RBC Nucleated RBC % (auto) Sodium Potassium Chloride Carbon Dioxide Anion Gap BUN Creatinine Estim Creat Clear Calc Estimated GFR POC Glucose 146 H 176 H 204 H Fasting Glucose Calcium 08/26/20 08/26/20 08/26/20 06:28 06:28 07:17 WBC 10.0 RBC 3.57 L Hgb 9.7 L Hct 30.3 L MCV 84.9 MCH 27.2 MCHC 32.0 RDW 14.1 Plt Count 481 H D MPV 9.4 Absolute Nucleated RBC 0.000 Nucleated RBC % (auto) 0.0 Sodium 138 Potassium 5.1 Chloride 108 Carbon Dioxide 20 L Anion Gap 15 BUN 23 H Creatinine 1.16 Estim Creat Clear Calc 57.9 Estimated GFR 48 POC Glucose 165 H Fasting Glucose 159 H Calcium 8.8 D Discharge Plan Discharge Patient Disposition: Home Health Service Discharge Diagnosis: Diabetic foot ulcer Referrals: Kristin Bellamy MD [Primary Care Provider] - 09/02/20 3:00 pm (You have a PCP follow-up appointment on Monday, September 02 at 3:00pm. Please call your PCP office if you need to reschedule.) Discharge Medications: New doxycycline monohydrate 100 mg capsule 100 mg PO BID Qty: 20 RF: 0 hydrochlorothiazide 25 mg tablet 25 mg PO QAM Qty: 30 RF: 0 hydralazine 25 mg tablet 25 mg PO TID Qty: 90 RF: 1 Continued furosemide 40 mg tablet 1 tab PO BID RF: 0 atorvastatin 20 mg tablet 1 tab PO DAILY RF: 0 ferrous sulfate 325 mg (65 mg iron) tablet,delayed release (DR/EC) 1 tab PO DAILY RF: 0 irbesartan 300 mg tablet 1 tab PO DAILY RF: 0 (DME) pen needle, diabetic [BD Adela 2nd Gen Pen Needle] 32 gauge x 5/32 needle MISCELLANEOUS 5XD RF: 0 Toujeo SoloStar U-300 Insulin 300 unit/mL (1.5 mL) insulin pen 48 unit subcut DAILY RF: 0 Humalog KwikPen Insulin 200 unit/mL (3 mL) insulin pen See Protocol unit subcut TIDAC RF: 0 (DME) FreeStyle Amber 14 Day Sensor Kit topical Q2W RF: 0 Discharge Orders: Discharge Order (Routine); Ordered 08/26/20 Ordered By: Jean Paul Marquez Diet: advance to usual diet Activity on Discharge: As tolerated Stand Alone Forms: Patient Portal Discharge page Activity Restrictions/Additional Instructions: Skin glue was used and you may shower as early as tomorrow. Take it easy today and you may ambulate around the house. Within 24 hours you can resume normal activity you may climb a flight of stairs as tolerated Do not lift anything heavier than a gallon of milk for 3 days. See me in follow-up in approximately 2 weeks time. you should already have an appointment if not please call my office at [phone] - Dr. Gamez Please see above for any change in medications If you notice excessive bleeding from the groin please immediately call my office or return to the emergency room. Care Plan Goals: Read below Health Concerns: Read below Plan of Treatment: You were admitted to the hospital for treatment of foot ulcer. Evaluated by infectious disease and surgical team as an image for your arteries did not show any obstruction. Wound was clean and improved significantly with antibiotic usage. Assessment: Continue wound care To use doxycycline for 10 more days to start hydrochlorothiazide and hydralazine for blood pressure control monitor your blood pressure at home and report 1 week readings as you follow- up as outpatient with your PCP Discharge Date/Time: 08/26/20 12:19
[2020-08-26 11:01] VITALS: BP 156/69; PULSE 75; RESP 18; TEMP 36.4; O2SAT 98
--- NOTE | 2020-08-26 11:12 | MHC.CM.PN ---
PATIENT IS DISCHARGED HOME - SELF CARE. SHE HAS WOUND CARE FOLLOW UP HERE AT [facility]. SON TO PROVIDE TRANSPORT.
[2020-08-26 11:43] LABS: Glucose, Whole Blood 169 mg/dL (60-115)
== END 2020-08-26 12:19 | disposition home health service (06) | DRG 380 ==
LOC: HO.ED 19:57 → HO.EDOVER 23:27 → HO.S3 08-20 00:36
PROVIDERS: Internal Medicine; Surgery Vascular Surgery; Admitting Provider Hospitalist; Emergency Provider Emergency Medicine; PCP Internal Medicine; Visit Provider Student in an Organized Health Care Education/Training Program
DX: E11.621 Type 2 diabetes mellitus with foot ulcer (principal); L97.419 Non-pressure chronic ulcer of right heel and midfoot with unspecified severity; N17.9 Acute kidney failure, unspecified; E11.51 Type 2 diabetes mellitus with diabetic peripheral angiopathy without gangrene; E11.22 Type 2 diabetes mellitus with diabetic chronic kidney disease; N18.9 Chronic kidney disease, unspecified; I70.234 Atherosclerosis of native arteries of right leg with ulceration of heel and midfoot; L03.115 Cellulitis of right lower limb; Z20.822 Contact with and (suspected) exposure to COVID-19; Z79.4 Long term (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 insulin; Z88.0 Allergy status to penicillin; Z79.899 Other long term (current) drug therapy
CPT/HCPCS: 36246; 36415; 73620; 75710; 76937; 80048; 80053; 80202; 82565; 82947; 83735; 85025; 85027; 87071; 87205; 87635; 93923; 93925; 99152; 99153; 99285; C1725; C1769; C1887; J3370; Q9967

== ENCOUNTER → 2020-09-17 09:54 | Outpatient (BNVA) | payer OTHER, SELFPAY | PROVIDERS: PCP Internal Medicine; Visit Provider Surgery Vascular Surgery ==

== ENCOUNTER 2020-12-14 12:43 | Outpatient (REF) | payer OTHER, SELFPAY ==
[2020-12-14 14:39] VITALS: BMI 31.4
[2020-12-14 14:40] VITALS: BP 161/65; PULSE 69; RESP 16; TEMP 36.5; O2SAT 97
== END 2020-12-14 12:44 | disposition home or self-care (01) ==
LOC: HO.MS 12:43
PROVIDERS: PCP Internal Medicine; Visit Provider Ophthalmology
PROC: (CPT 66821; principal; 2020-12-14 15:10)
DX: H26.492 Other secondary cataract, left eye (principal); Z96.1 Presence of intraocular lens; I10 Essential (primary) hypertension; E11.9 Type 2 diabetes mellitus without complications; Z79.4 Long term (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 insulin; Z79.899 Other long term (current) drug therapy; Z87.891 Personal history of nicotine dependence
CPT/HCPCS: 66821

== ENCOUNTER 2020-12-17 12:06 | Outpatient (REF) | payer OTHER, SELFPAY ==
[2020-12-17 13:21] LABS: Appearance Urine CLEAR; Color Urine YELLOW; Glucose Urine UA NEG (NEG); Leukocyte Esterase Urine 1+ (NEG); Nitrite Urine NEG (NEG); Urine Blood NEG (NEG); Urine Ketones NEG (NEG); Urine Protein 2+ MG/DL (NEG-TRACE)
[2020-12-17 13:30] LABS: Alanine Aminotransferase 13 U/L (0-31); Albumin Level 4.2 g/dL (3.5-5.0); Alkaline Phosphatase 88 U/L (39-117); Anion Gap 16 (12-20); Aspartate Amino Transferase 19 U/L (5-31); Bilirubin Total 0.6 mg/dL (0.0-1.0); Blood Urea Nitrogen 46 mg/dL (9-16); Calcium 9.2 mg/dL (8.4-10.2); Carbon Dioxide 24 mmol/L (22-29); Chloride 104 mmol/L (96-108); Cholesterol 162 mg/dL; Estimated Glomerular Filt Rate 30; Glucose Random 81 mg/dL (60-115); HDL Cholesterol 44 mg/dL; LDL Cholesterol Calculated 88 mg/dl; Potassium 4.9 mmol/L (3.3-5.1); Sodium 139 mmol/L (135-145); Total Protein 8.5 g/dL (6.5-8.0); Triglycerides 153 mg/dL
[2020-12-17 13:31] LABS: Iron 42 mcg/dL (30-160); Magnesium 2.4 mg/dL (1.6-2.6); Percent Iron Saturation 16 % (15-50); Total Iron Binding Capacity 262 mcg/dL (228-428); Unsaturated Iron Binding 220 ug/dL; Uric Acid 10.5 mg/dL (2.4-5.7)
[2020-12-17 13:49] LABS: Creatinine Urine 79.32 mg/dL
[2020-12-17 13:53] LABS: Ferritin 144 ng/mL (10-250); Vitamin D 25-OH Total 12.9 ng/mL (>30)
[2020-12-17 14:02] LABS: Microalbum/Creatinine Ratio Ur 692.1 ug/mg cr
[2020-12-17 14:05] LABS: Vitamin B12 867 pg/mL (200-900)
[2020-12-17 14:06] LABS: Basophils Percent Auto 0.4 % (0-2); Eosinophils Absolute Auto 0.3 X10*3/uL (0.0-0.4); Eosinophils Percent Auto 2.7 % (0-4); Hematocrit 30.3 % (37.0-47.0); Hemoglobin 9.8 g/dl (12.0-16.0); Imm Gran Abs Auto 0.06 X10*3/uL (0.00-0.03); Imm Gran Pct Auto 0.5 % (0.0-0.4); Lymphocytes Absolute Auto 2.2 X10*3/uL (1.2-4.9); Lymphocytes Percent Auto 20.1 % (20-40); MANUAL DIFF FLAG NO; Mean Corpuscular HGB Conc 32.3 g/dl (31.0-35.0); Mean Corpuscular Hemoglobin 27.8 pg (27.0-33.0); Mean Corpuscular Volume 85.8 fL (80.0-98.0); Mean Platelet Volume 9.7 fL (9.4-12.3); Monocytes Absolute Auto 0.6 X10*3/uL (0.1-1.2); Monocytes Percent Auto 5.4 % (2-11); Neutrophils Absolute Auto 7.88 x10*3/uL (2.0-8.3); Neutrophils Percent Auto 70.9 % (45-73); Platelet Count 430 X10*3/uL (160-400); Red Blood Count 3.53 X10*6/uL (4.20-5.50); Red Cell Distribution Width 13.3 % (11.0-16.0); White Blood Count 11.1 X10*3/uL (4.8-10.8)
[2020-12-17 14:43] LABS: RBC Urine 0 /HPF (0); Renal Epithelial Cells Urine 2+ /LPF
[2020-12-17 14:45] LABS: Estimated Average Glucose 143 mg/dL; Hemoglobin A1c % 6.6 %
[2020-12-18 14:12] LABS: Calcium (PTHI) 9.1 mg/dL (8.6-10.4); PTHI 168 pg/mL (14-64)
== END 2020-12-17 12:07 | disposition home or self-care (01) ==
LOC: HO.LAB 12:06
PROVIDERS: Absent Provider Internal Medicine; PCP Internal Medicine; Visit Provider Internal Medicine Nephrology
DX: E11.21 Type 2 diabetes mellitus with diabetic nephropathy (principal); E11.621 Type 2 diabetes mellitus with foot ulcer; I12.9 Hypertensive chronic kidney disease with stage 1 through stage 4 chronic kidney disease, or unspecified chronic kidney disease; N18.9 Chronic kidney disease, unspecified; D63.1 Anemia in chronic kidney disease; E11.22 Type 2 diabetes mellitus with diabetic chronic kidney disease
CPT/HCPCS: 36415; 80053; 80061; 81001; 82043; 82306; 82607; 82728; 83036; 83540; 83735; 83970; 84550; 85025

== ENCOUNTER → 2020-12-25 12:13 | Outpatient (BNVA) | payer OTHER, SELFPAY | PROVIDERS: PCP Internal Medicine; Visit Provider Nurse Practitioner Gerontology | DX: E11.65 Type 2 diabetes mellitus with hyperglycemia (principal); E11.21 Type 2 diabetes mellitus with diabetic nephropathy; E11.319 Type 2 diabetes mellitus with unspecified diabetic retinopathy without macular edema; E11.40 Type 2 diabetes mellitus with diabetic neuropathy, unspecified; E78.5 Hyperlipidemia, unspecified; E04.2 Nontoxic multinodular goiter; I10 Essential (primary) hypertension; Z79.4 Long term (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 insulin | CPT/HCPCS: 82947 ==

== ENCOUNTER 2021-03-17 10:06 | Outpatient (REF) | payer OTHER, SELFPAY ==
[2021-03-17 10:51] LABS: Hematocrit 34.2 % (37.0-47.0); Hemoglobin 10.9 g/dl (12.0-16.0); Mean Corpuscular HGB Conc 31.9 g/dl (31.0-35.0); Mean Corpuscular Hemoglobin 27.5 pg (27.0-33.0); Mean Corpuscular Volume 86.4 fL (80.0-98.0); Mean Platelet Volume 9.7 fL (9.4-12.3); Platelet Count 348 X10*3/uL (160-400); Red Blood Count 3.96 X10*6/uL (4.20-5.50); Red Cell Distribution Width 13.3 % (11.0-16.0); White Blood Count 9.3 X10*3/uL (4.8-10.8)
[2021-03-17 11:25] LABS: Alanine Aminotransferase 21 U/L (0-31); Albumin Level 4.2 g/dL (3.5-5.0); Alkaline Phosphatase 90 U/L (39-117); Anion Gap 13 (12-20); Aspartate Amino Transferase 25 U/L (5-31); Bilirubin Total 0.5 mg/dL (0.0-1.0); Blood Urea Nitrogen 26 mg/dL (9-16); Calcium 9.3 mg/dL (8.4-10.2); Carbon Dioxide 28 mmol/L (22-29); Chloride 104 mmol/L (96-108); Estimated Average Glucose 166 mg/dL; Estimated Glomerular Filt Rate 35; Glucose Random 160 mg/dL (60-115); Hemoglobin A1c % 7.4 %; Potassium 4.6 mmol/L (3.3-5.1); Sodium 140 mmol/L (135-145); Total Protein 8.4 g/dL (6.5-8.0)
== END 2021-03-17 10:07 | disposition home or self-care (01) ==
LOC: HO.LAB 10:06
PROVIDERS: Absent Provider Internal Medicine Hypertension Specialist; PCP Internal Medicine; Visit Provider Internal Medicine
DX: Z00.01 Encounter for general adult medical examination with abnormal findings (principal); E78.00 Pure hypercholesterolemia, unspecified; E11.22 Type 2 diabetes mellitus with diabetic chronic kidney disease; N18.31 Chronic kidney disease, stage 3a; D63.1 Anemia in chronic kidney disease
CPT/HCPCS: 36415; 80053; 83036; 85027

== ENCOUNTER → 2021-04-23 12:17 | Outpatient (BNVA) | payer OTHER, SELFPAY | PROVIDERS: PCP Internal Medicine; Visit Provider Nurse Practitioner Gerontology | DX: E11.65 Type 2 diabetes mellitus with hyperglycemia (principal); E11.21 Type 2 diabetes mellitus with diabetic nephropathy; E11.319 Type 2 diabetes mellitus with unspecified diabetic retinopathy without macular edema; E78.5 Hyperlipidemia, unspecified; E04.2 Nontoxic multinodular goiter; I10 Essential (primary) hypertension; Z79.4 Long term (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 insulin | CPT/HCPCS: 82947 ==

== ENCOUNTER 2021-06-16 11:30 | Outpatient (REF) | payer OTHER, SELFPAY ==
[2021-06-16 11:54] LABS: MANUAL DIFF FLAG NO
[2021-06-16 12:31] LABS: Basophils Percent Auto 0.4 % (0-2); Eosinophils Absolute Auto 0.5 X10*3/uL (0.0-0.4); Eosinophils Percent Auto 4.3 % (0-4); Hematocrit 32.7 % (37.0-47.0); Hemoglobin 10.7 g/dl (12.0-16.0); Imm Gran Abs Auto 0.07 X10*3/uL (0.00-0.03); Imm Gran Pct Auto 0.6 % (0.0-0.4); Lymphocytes Absolute Auto 2.3 X10*3/uL (1.2-4.9); Lymphocytes Percent Auto 20.9 % (20-40); Mean Corpuscular HGB Conc 32.7 g/dl (31.0-35.0); Mean Corpuscular Hemoglobin 28.5 pg (27.0-33.0); Mean Platelet Volume 10.1 fL (9.4-12.3); Monocytes Absolute Auto 0.6 X10*3/uL (0.1-1.2); Monocytes Percent Auto 5.9 % (2-11); Neutrophils Absolute Auto 7.3 x10*3/uL (2.0-8.3); Neutrophils Percent Auto 67.9 % (45-73); Platelet Count 332 X10*3/uL (160-400); Red Blood Count 3.76 X10*6/uL (4.20-5.50); Red Cell Distribution Width 13.9 % (11.0-16.0); White Blood Count 10.8 X10*3/uL (4.8-10.8)
[2021-06-16 12:43] LABS: Estimated Average Glucose 174 mg/dL; Hemoglobin A1c % 7.7 %
[2021-06-16 13:02] LABS: Alanine Aminotransferase 20 U/L (0-31); Alkaline Phosphatase 88 U/L (39-117); Anion Gap 15 (12-20); Aspartate Amino Transferase 21 U/L (5-31); Bilirubin Total 0.5 mg/dL (0.0-1.0); Blood Urea Nitrogen 24 mg/dL (9-16); Calcium 9.2 mg/dL (8.4-10.2); Carbon Dioxide 26 mmol/L (22-29); Chloride 102 mmol/L (96-108); Estimated Glomerular Filt Rate 33; Glucose Random 208 mg/dL (60-115); Potassium 4.9 mmol/L (3.3-5.1); Sodium 138 mmol/L (135-145); Total Protein 7.7 g/dL (6.5-8.0)
== END 2021-06-16 11:31 | disposition home or self-care (01) ==
LOC: HO.LAB 11:30
PROVIDERS: Absent Provider Internal Medicine Hypertension Specialist; PCP Internal Medicine; Visit Provider Internal Medicine
DX: E11.22 Type 2 diabetes mellitus with diabetic chronic kidney disease (principal); E11.621 Type 2 diabetes mellitus with foot ulcer; I10 Essential (primary) hypertension; E78.00 Pure hypercholesterolemia, unspecified; D63.1 Anemia in chronic kidney disease
CPT/HCPCS: 36415; 80053; 83036; 85025

== ENCOUNTER 2021-08-03 15:53 | Emergency (ER) | payer OTHER, SELFPAY ==
--- NOTE | ~2021-08-03 | XR_ITS ---
EXAMINATION: XR CHEST CLINICAL INFORMATION: Chest pain COMPARISON: 08/29/2017 and priors TECHNIQUE: AP upright view of the chest was obtained. FINDINGS: No acute consolidation, effusion or pneumothorax. Stable heart and mediastinum. No pulmonary edema. Stable minor elevation of the right diaphragm. Normal gas pattern. Stable degenerative spine disease. XR/XR chest 1V IMPRESSION: No acute cardiopulmonary process identified.
--- NOTE | ~2021-08-03 | CT_ITS ---
EXAMINATION: CT HEAD WITHOUT CONTRAST CLINICAL INFORMATION: New onset dizziness. COMPARISON: None TECHNIQUE: Contiguous axial imaging was performed from the skull base to vertex without intravenous administration of contrast. Coronal and sagittal reformatted images are performed at CT scanner This CT examination was performed using dose optimization techniques as appropriate, variously including the following: *Automated exposure control *Adjustment of mA and/or kV according to patient size (this includes techniques or standardized protocols for targeted exams where dose is matched to indication/reason for exam; i.e. extremities or head) *Use of iterative reconstruction technique DLP: 628 mGy-cm FINDINGS: There is no evidence of acute intracranial hemorrhage or territorial infarction. No abnormal mass effect or midline shift is seen. Goncalves to white matter differentiation is well preserved. No extra-axial fluid collections are identified. The ventricles are normal in size. There is no abnormal attenuation within the brain parenchyma. The osseous structures and soft tissues are normal. The mastoid air cells and visualized portions of the paranasal sinuses are well aerated. CT/CT head/brain wo con IMPRESSION: No acute intracranial pathology.
[2021-08-03 15:56] VITALS: BP 170/69; PULSE 87; RESP 18; TEMP 36.6; O2SAT 97; BMI 33.5
--- NOTE | 2021-08-03 16:01 | ECG_ITS ---
Test Reason : chest pressure Blood Pressure : / mmHG Vent. Rate : 077 BPM Atrial Rate : 077 BPM P-R Int : 156 ms QRS Dur : 074 ms QT Int : 378 ms P-R-T Axes : 042 005 031 degrees QTc Int : 427 ms Normal sinus rhythm Inferior infarct , age undetermined Cannot rule out Anterior infarct (cited on or before 27-MAY-2019) Abnormal ECG When compared with ECG of 27-MAY-2019 22:15, Inferior infarct is now Present Referred By: Generic ED Physician Electronically Signed By:AKHIL BUCKNER MD
[2021-08-03 16:36] LABS: Hematocrit 31.5 % (37.0-47.0); Hemoglobin 10.3 g/dl (12.0-16.0); Mean Corpuscular HGB Conc 32.7 g/dl (31.0-35.0); Mean Corpuscular Hemoglobin 28.2 pg (27.0-33.0); Mean Corpuscular Volume 86.3 fL (80.0-98.0); Mean Platelet Volume 9.8 fL (9.4-12.3); Platelet Count 399 X10*3/uL (160-400); Red Blood Count 3.65 X10*6/uL (4.20-5.50); Red Cell Distribution Width 13.6 % (11.0-16.0); White Blood Count 11.6 X10*3/uL (4.8-10.8)
[2021-08-03 16:48] VITALS: BP 157/68; PULSE 70; RESP 16; TEMP 36.8; O2SAT 96
[2021-08-03 16:55] LABS: Troponin-I High Sensitivity 5.3 ng/L (<3.5-17.0)
--- NOTE | 2021-08-03 16:58 | ED_ITS ---
HPI - Neuro Symptoms/Deficit General Chief Complaint: Neuro Symptoms/Deficit Stated Complaint: possible stroke/dizziness/chest tightness Time Seen by Provider: 08/03/21 16:43 Source: patient Mode of arrival: ambulatory Limitations: no limitations History of Present Illness HPI Narrative: Patient with History of diabetes, hypertension, peripheral arterial disease comes here for acute onset of dizziness about 1 week ago sudden-onset feels everything spinning patient when she ambulates or turn her head to the left side history with nausea no vomiting feels her gait slightly off no dysarthria no focal deficit no facial asymmetry feels left eye bothering her slightly. Tinnitus in left ear+ patient never had similar episodes in the past Related Data Home Medications Medication Instructions Recorded Confirmed ferrous sulfate 325 mg (65 mg 1 tab PO DAILY 08/19/20 04/23/21 iron) tablet,delayed release furosemide 40 mg tablet 1 tab PO BID 08/19/20 04/23/21 atorvastatin 40 mg tablet 40 mg PO DAILY 12/25/20 04/23/21 cyanocobalamin (vitamin B-12) 1,000 mcg PO DAILY 12/25/20 04/23/21 1,000 mcg tablet olmesartan 40 mg tablet 40 mg PO DAILY 12/25/20 04/23/21 Previous Rx's Medication Instructions Recorded doxycycline monohydrate 100 mg 100 mg PO BID #20 caps 08/26/20 capsule hydralazine 25 mg tablet 25 mg PO TID #90 tabs 08/26/20 flash glucose sensor (FreeStyle #2 ea 04/06/21 Amber 14 Day Sensor) blood sugar diagnostic (FreeStyle #100 ea 04/23/21 Lite Strips) blood-glucose meter (FreeStyle #1 ea 04/23/21 Lite Meter) insulin glargine U-300 conc 300 38 unit (0.1267 mL) subcut DAILY 04/23/21 unit/mL (1.5 mL) subcutaneous pen #4.5 mL (Toujeo SoloStar U-300 Insulin) lancets 28 gauge (FreeStyle #100 ea 04/23/21 Lancets) pen needle, diabetic 32 gauge x #150 ea 04/23/21 (BD Adela 2nd Gen Pen Needle) insulin lispro 200 unit/mL (3 mL) See Rx Instructions subcut QID #6 04/26/21 subcutaneous pen (Humalog KwikPen mL U-200 Insulin) cefuroxime axetil 250 mg tablet 250 mg PO BID 7 days #14 tabs 08/03/21 meclizine 12.5 mg tablet 12.5 mg PO TID PRN motion sickness 08/03/21 #20 tabs Allergies Allergy/AdvReac Type Severity Reaction Status Date / Time amlodipine [[facility] Allergy Mild SWELLING Verified 04/23/21 12:46 Penicillins Allergy Mild RASH Verified 04/23/21 12:46 Erythromycin Allergy Unknown Unknown Verified 04/23/21 12:46 clindamycin [CLINDAMYCIN] AdvReac Intermediate DIARRHEA Verified 04/23/21 12:46 NephrAmine Allergy Unknown swelling Uncoded 04/23/21 12:46 Review of Systems Review of Systems: Yes all other systems are reviewed and are negative [facility] Past Medical History Medical History Cellulitis Diabetic foot ulcer associated with type 2 diabetes mellitus Diabetic neuropathy associated with type 2 diabetes mellitus S/P angiogram of extremity (08/25/20) Surgical History Hx of cataract extraction Hx of eye surgery Hx of foot surgery Hx of LASIK Family History Family History Father COPD (chronic obstructive pulmonary disease) Diabetes Mother Heart disease Social History Social History Household Members: None Housing: House Do you presently have visiting nurse or other home services: No Alcohol intake: current Alcohol intake frequency: does not drink Patient Tobacco Use Status: Former Tobacco user Quit Date: 2001 Advance Directives: No Advance Directives Information Provided: No Patient : No service: No Current occupational status: employed Physical Exam Vital Signs: Vital Signs: Last Vital Signs Temp 97.8 F 08/03/21 19:57 Pulse 66 08/03/21 19:57 Resp 18 08/03/21 19:57 BP 165/66 H 08/03/21 19:57 Pulse Ox 97 08/03/21 19:57 O2 Del Method 08/03/21 19:57 BMI result Body Mass Index 33.5 Appearance: Alert. Oriented X3. No acute distress. Eyes: PERRLA, No Nystagmus ENT: Pharynx normal. Oral Mucosa moist Neck: Normal inspection. Neck supple. CVS: Normal heart rate and rhythm. Pulses normal. Respiratory: No respiratory distress. Equal air entry bilateral, no wheezing/rales/rhonchi Abdomen: Soft and nontender. Bowel sounds are present, no mass palpable, no CVA tenderness Skin: Skin warm and dry. Normal skin color. Normal skin turgor. Extremities: No lower extremity edema. No calf tenderness Neuro: Oriented X 3. No motor deficit. No sensory deficit.No cerebellar signs , cranial nerves II-XII intact increased dizziness on turning the neck to the left side MDM - Neuro Symptoms/Deficit MDM Narrative Medical decision making narrative: 1800Patient with clinically benign positional vertigo CT scan of the head is negative no significant facial droop of cerebellar signs were noticed labs are stable patient felt better after meclizine Lab Data Attestation: I reviewed the patient's lab results. Result diagrams: 08/03/21 16:27 08/03/21 16:27 Labs: Lab Results 08/03/21 08/03/21 08/03/21 Range/Units 16:27 16:27 16:27 WBC 11.6 H (4.8-10.8) X10*3/uL RBC 3.65 L (4.20-5.50) X10*6/uL Hgb 10.3 L (12.0-16.0) g/dl Hct 31.5 L (37.0-47.0) % MCV 86.3 (80.0-98.0) fL MCH 28.2 (27.0-33.0) pg MCHC 32.7 (31.0-35.0) g/dl RDW 13.6 (11.0-16.0) % Plt Count 399 (160-400) X10*3/uL MPV 9.8 (9.4-12.3) fL Absolute Nucleated RBC 0.000 (0.0-0.012) X10*3/uL Nucleated RBC % (auto) 0.0 (0.0-0.2) /100WBC Sodium 137 (135-145) mmol/L Potassium 4.8 (3.3-5.1) mmol/L Chloride 105 (96-108) mmol/L Carbon Dioxide 22 (22-29) mmol/L Anion Gap 15 (12-20) BUN 32 H (9-16) mg/dL Creatinine 1.59 H (0.5-1.4) mg/dL Estim Creat Clear Calc 44.0 Estimated GFR 33 Random Glucose 192 H (60-115) mg/dL Calcium 8.8 (8.4-10.2) mg/dL Troponin I High Sens 5.3 (<3.5-17.0) ng/L Urine Color Urine Appearance Urine pH (5.0-8.0) Ur Specific [place] (1.005-1.025) Urine Protein (NEG-TRACE) MG/DL Urine Glucose (UA) (NEG) MG/DL Urine Ketones (NEG) MG/DL Urine Blood (NEG) Urine Nitrite (NEG) Ur Leukocyte Esterase (NEG) Urine RBC (0) /HPF Urine WBC (0-4) /HPF Urine WBC Clumps Ur Squamous Epith Cells /LPF Amorphous Sediment /LPF Urine Bacteria /LPF 08/03/21 Range/Units 17:59 WBC (4.8-10.8) X10*3/uL RBC (4.20-5.50) X10*6/uL Hgb (12.0-16.0) g/dl Hct (37.0-47.0) % MCV (80.0-98.0) fL MCH (27.0-33.0) pg MCHC (31.0-35.0) g/dl RDW (11.0-16.0) % Plt Count (160-400) X10*3/uL MPV (9.4-12.3) fL Absolute Nucleated RBC (0.0-0.012) X10*3/uL Nucleated RBC % (auto) (0.0-0.2) /100WBC Sodium (135-145) mmol/L Potassium (3.3-5.1) mmol/L Chloride (96-108) mmol/L Carbon Dioxide (22-29) mmol/L Anion Gap (12-20) BUN (9-16) mg/dL Creatinine (0.5-1.4) mg/dL Estim Creat Clear Calc Estimated GFR Random Glucose (60-115) mg/dL Calcium (8.4-10.2) mg/dL Troponin I High Sens (<3.5-17.0) ng/L Urine Color YELLOW Urine Appearance HAZY Urine pH 5.5 (5.0-8.0) Ur Specific [place] 1.025 (1.005-1.025) Urine Protein 2+ H (NEG-TRACE) MG/DL Urine Glucose (UA) NEG (NEG) MG/DL Urine Ketones NEG (NEG) MG/DL Urine Blood NEG (NEG) Urine Nitrite NEG (NEG) Ur Leukocyte Esterase 3+ H (NEG) Urine RBC 1-4 (0) /HPF Urine WBC 50-75 H (0-4) /HPF Urine WBC Clumps NOTED Ur Squamous Epith Cells 1+ /LPF Amorphous Sediment TRACE /LPF Urine Bacteria TRACE /LPF Discharge Plan Discharge Clinical Impression: UTI (urinary tract infection), Dizziness Patient Disposition: Home, Self-Care Instructions: Benign Paroxysmal Positional Vertigo (ED), Urinary Tract Infection in Older Adults (ED) Additional Instructions: Care and caution is advised Drink plenty of fluids Medicine for dizziness as prescribed Antibiotic for urinary tract infection For the PCP if not better Prescriptions: New cefuroxime axetil 250 mg tablet 250 mg PO BID 7 Days Qty: 14 0RF meclizine 12.5 mg tablet 12.5 mg PO TID PRN (Reason: motion sickness) Qty: 20 0RF No Action (DME) FreeStyle Amber 14 Day Sensor Kit topical Q2W Qty: 2 11RF Rx Instructions: As directed Humalog KwikPen Insulin 200 unit/mL (3 mL) insulin pen See Rx Instructions subcut QID Qty: 6 6RF Rx Instructions: 10 units for breakfast and lunch, 14 units for dinner, 4 unit snac subcut 4 times a day; furosemide 40 mg tablet 1 tab PO BID ferrous sulfate 325 mg (65 mg iron) tablet,delayed release (DR/EC) 1 tab PO DAILY doxycycline monohydrate 100 mg capsule 100 mg PO BID Qty: 20 0RF hydralazine 25 mg tablet 25 mg PO TID Qty: 90 1RF olmesartan 40 mg tablet 40 mg PO DAILY atorvastatin 40 mg tablet 40 mg PO DAILY cyanocobalamin (vitamin B-12) 1,000 mcg tablet 1,000 mcg PO DAILY Dixie Malik U-300 Insulin 300 unit/mL (1.5 mL) insulin pen 38 unit subcut DAILY Qty: 4.5 6RF (DME) pen needle, diabetic [BD Adela 2nd Gen Pen Needle] 32 gauge x need le MISCELLANEOUS 5XD Qty: 150 0RF Rx Instructions: As directed 5 x/day (DME) blood-glucose meter [FreeStyle Lite Meter] Kit See Rx Instructions .ROUTE .MEDSUPPLY Qty: 1 0RF Rx Instructions: As directed (DME) FreeStyle Lite Strips Strip See Rx Instructions .ROUTE .MEDSUPPLY Qty: 100 11RF Rx Instructions: As directed three times a day (DME) lancets [FreeStyle Lancets] 28 gauge misc See Rx Instructions .ROUTE .MEDSUPPLY Qty: 100 11RF Rx Instructions: Three times a day Interventions: ED Discharge Assessment Last Done: 08/03/21 21:33 Discharge Date/Time: 08/03/21 21:33
[2021-08-03 17:01] LABS: Anion Gap 15 (12-20); Blood Urea Nitrogen 32 mg/dL (9-16); Calcium 8.8 mg/dL (8.4-10.2); Carbon Dioxide 22 mmol/L (22-29); Chloride 105 mmol/L (96-108); Estimated Glomerular Filt Rate 33; Glucose Random 192 mg/dL (60-115); Potassium 4.8 mmol/L (3.3-5.1); Sodium 137 mmol/L (135-145)
[2021-08-03] MEDS: Meclizine HCl 25 MG TABLET PO (17:18)
[2021-08-03 18:07] LABS: Appearance Urine HAZY; Color Urine YELLOW; Glucose Urine UA NEG (NEG); Leukocyte Esterase Urine 3+ (NEG); Nitrite Urine NEG (NEG); PH 5.5 (5.0-8.0); Specific Gravity - Urine 1.025 (1.005-1.025); UACC Culture Trigger YES; Urine Blood NEG (NEG); Urine Ketones NEG (NEG); Urine Protein 2+ MG/DL (NEG-TRACE)
[2021-08-03 18:21] LABS: Squamous Epithelial Cell Urine 1+ /LPF
[2021-08-03 18:23] LABS: WBC Urine 50-75 /HPF (0-4)
[2021-08-03 18:24] LABS: Amorphous Sediment Urine TRACE /LPF; Bacteria Urine TRACE /LPF
[2021-08-03 18:25] LABS: WBC Clumps Urine NOTED
[2021-08-03] MEDS: 0.9 % Sodium Chloride 1,000 ML 999 ML IV (19:14)
[2021-08-03] MEDS: cefTRIAXone sodium 1 GM in 0.9 % Sodium Chloride 50 ML IV (19:14)
[2021-08-03 19:57] VITALS: BP 165/66; PULSE 66; RESP 18; TEMP 36.6; O2SAT 97
== END 2021-08-03 21:33 | disposition home or self-care (01) ==
PROVIDERS: Emergency Provider Internal Medicine; PCP Internal Medicine
DX: R07.89 Other chest pain (principal); R42 Dizziness and giddiness; E11.9 Type 2 diabetes mellitus without complications; N39.0 Urinary tract infection, site not specified; Z79.899 Other long term (current) drug therapy; Z87.891 Personal history of nicotine dependence
CPT/HCPCS: 36415; 70450; 71045; 80048; 81001; 84484; 85027; 87086; 93005; 96361; 96374; 99284; J0696

== ENCOUNTER 2021-09-08 09:13 | Outpatient (REF) | payer OTHER, SELFPAY ==
[2021-09-08 10:03] LABS: Estimated Average Glucose 160 mg/dL; Hemoglobin A1c % 7.2 %
[2021-09-08 10:32] LABS: Alanine Aminotransferase 21 U/L (0-31); Albumin Level 4.2 g/dL (3.5-5.0); Alkaline Phosphatase 89 U/L (39-117); Anion Gap 16 (12-20); Aspartate Amino Transferase 18 U/L (5-31); Bilirubin Total 0.6 mg/dL (0.0-1.0); Blood Urea Nitrogen 36 mg/dL (9-16); Calcium 9.6 mg/dL (8.4-10.2); Carbon Dioxide 24 mmol/L (22-29); Chloride 106 mmol/L (96-108); Estimated Glomerular Filt Rate 35; Glucose Random 169 mg/dL (60-115); Potassium 5.5 mmol/L (3.3-5.1); Sodium 140 mmol/L (135-145); Total Protein 7.9 g/dL (6.5-8.0)
== END 2021-09-08 09:14 | disposition home or self-care (01) ==
LOC: HO.LAB 09:13
PROVIDERS: PCP Internal Medicine; Referring Provider Internal Medicine Hypertension Specialist; Visit Provider Internal Medicine
DX: I12.9 Hypertensive chronic kidney disease with stage 1 through stage 4 chronic kidney disease, or unspecified chronic kidney disease (principal); N18.9 Chronic kidney disease, unspecified; E11.22 Type 2 diabetes mellitus with diabetic chronic kidney disease; E78.00 Pure hypercholesterolemia, unspecified
CPT/HCPCS: 36415; 80053; 83036

== ENCOUNTER → 2021-12-02 12:00 | Outpatient (RCR) | payer OTHER, SELFPAY ==
--- NOTE | ~2021-12-02 | XR_ITS ---
EXAMINATION: XR FOOT, RIGHT CLINICAL INFORMATION: Ulcer COMPARISON: None TECHNIQUE: AP, lateral, and oblique views of the right foot. FINDINGS: Redemonstration of chronic dysmorphic changes of the right foot especially involving the tarsometatarsal level, compatible with history of Charcot's foot. There is no evidence of ostial lysis to suggest osteomyelitis. There is loss of midfoot arch. There are calcaneal spurs. XR/XR foot RT min 3V IMPRESSION: No ostial lysis to suggest osteomyelitis at this time. Marked dysmorphic right foot osseous structures compatible with Charcot foot.
--- NOTE | ~2021-12-02 | XR_ITS ---
EXAMINATION: XR FOOT, RIGHT CLINICAL INFORMATION: Nonhealing wound COMPARISON: None TECHNIQUE: AP, lateral, and oblique views of the right foot. FINDINGS: There is collapse of the midfoot and hindfoot with rocker-bottom deformity and likely Lisfranc changes. This does not appear appreciably changed from old exams most recent from 2020. No acute fracture or dislocation is seen. No x-ray evidence of osteomyelitis is seen. There is a dressing over the plantar foot. There is a calcaneal spur at the Achilles tendon insertion. XR/XR foot RT min 3V IMPRESSION: Chronic deformity of the midfoot and hindfoot. No acute fracture, dislocation or x-ray evidence of osteomyelitis seen.
== END | disposition home or self-care (01) ==
LOC: HO.WCC 11-18 08:16
PROVIDERS: Absent Provider Physician Assistant; PCP Internal Medicine; Visit Provider Surgery
DX: E11.621 Type 2 diabetes mellitus with foot ulcer (principal); L97.515 Non-pressure chronic ulcer of other part of right foot with muscle involvement without evidence of necrosis; E11.51 Type 2 diabetes mellitus with diabetic peripheral angiopathy without gangrene; E11.610 Type 2 diabetes mellitus with diabetic neuropathic arthropathy; E11.40 Type 2 diabetes mellitus with diabetic neuropathy, unspecified; I10 Essential (primary) hypertension; Z79.4 Long term (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 insulin; Z79.899 Other long term (current) drug therapy; Z87.891 Personal history of nicotine dependence
CPT/HCPCS: 11042; 11043; 11044; 15275; 29445; 73630; 87071; 87073; 87077; 87147; 87186; 87205; 88304; 88305; 88311; 97597; 99212; 99213; Q4101; Q4187

== ENCOUNTER 2021-12-03 12:53 | Outpatient (REF) | payer OTHER, SELFPAY ==
--- NOTE | ~2021-12-03 | US_ITS ---
EXAMINATION: US RETROPERITONEAL LIMITED (RENAL ONLY) CLINICAL INFORMATION: Hypertensive chronic kidney disease. COMPARISON: None TECHNIQUE: Real-time imaging of the kidneys. FINDINGS: RIGHT KIDNEY: 11.5 x 5.4 x 4.9 cm (SAG x AP x TRV). The kidney is normal in size, contour, and echogenicity. Renal cortical thickness is normal. There is a 3 mm stone in the midpole. No focal parenchymal lesions or hydronephrosis. LEFT KIDNEY: 12.1 x 5.1 x 5.0 cm (SAG x AP x TRV). The kidney is normal in size, contour, and echogenicity. Renal cortical thickness is normal. There is a question of a 1.5 x 1.1 x 1.2 cm cyst in the lower pole versus prominent pyramid. No renal calculi or hydronephrosis. US/US renal BI IMPRESSION: Small right renal stone. Question small left renal cyst versus prominent pyramid.
== END 2021-12-03 12:54 | disposition home or self-care (01) ==
LOC: HO.US 12:53
PROVIDERS: Visit Provider Internal Medicine Hypertension Specialist
DX: I12.9 Hypertensive chronic kidney disease with stage 1 through stage 4 chronic kidney disease, or unspecified chronic kidney disease (principal); E11.22 Type 2 diabetes mellitus with diabetic chronic kidney disease; N18.9 Chronic kidney disease, unspecified
CPT/HCPCS: 76775

== ENCOUNTER 2021-12-16 09:43 | Outpatient (REF) | payer OTHER, SELFPAY ==
[2021-12-16 10:01] LABS: MANUAL DIFF FLAG NO
[2021-12-16 10:35] LABS: Basophils Percent Auto 0.5 % (0-2); Eosinophils Absolute Auto 0.3 X10*3/uL (0.0-0.4); Eosinophils Percent Auto 2.9 % (0-4); Hematocrit 34.6 % (37.0-47.0); Hemoglobin 11.4 g/dl (12.0-16.0); Imm Gran Abs Auto 0.06 X10*3/uL (0.00-0.03); Imm Gran Pct Auto 0.7 % (0.0-0.4); Lymphocytes Absolute Auto 2.2 X10*3/uL (1.2-4.9); Lymphocytes Percent Auto 25.1 % (20-40); Mean Corpuscular HGB Conc 32.9 g/dl (31.0-35.0); Mean Corpuscular Hemoglobin 28.8 pg (27.0-33.0); Mean Corpuscular Volume 87.4 fL (80.0-98.0); Mean Platelet Volume 10.1 fL (9.4-12.3); Monocytes Absolute Auto 0.5 X10*3/uL (0.1-1.2); Monocytes Percent Auto 6.2 % (2-11); Neutrophils Absolute Auto 5.6 x10*3/uL (2.0-8.3); Neutrophils Percent Auto 64.6 % (45-73); Platelet Count 380 X10*3/uL (160-400); Red Blood Count 3.96 X10*6/uL (4.20-5.50); Red Cell Distribution Width 13.5 % (11.0-16.0); White Blood Count 8.6 X10*3/uL (4.8-10.8)
[2021-12-16 10:47] LABS: Estimated Average Glucose 148 mg/dL; Hemoglobin A1C 148.7329 umol/L; Hemoglobin A1c % 6.8 %
[2021-12-16 11:19] LABS: Alanine Aminotransferase 20 U/L (0-31); Albumin Level 4.3 g/dL (3.5-5.0); Alkaline Phosphatase 85 U/L (39-117); Anion Gap 16 (12-20); Aspartate Amino Transferase 19 U/L (5-31); Bilirubin Total 0.4 mg/dL (0.0-1.0); Blood Urea Nitrogen 25 mg/dL (9-16); Calcium 9.7 mg/dL (8.4-10.2); Carbon Dioxide 25 mmol/L (22-29); Chloride 103 mmol/L (96-108); Cholesterol 211 mg/dL; Estimated Glomerular Filt Rate 37; Glucose Random 139 mg/dL (60-115); HDL Cholesterol 44 mg/dL; LDL Cholesterol Calculated 122 mg/dl; Potassium 4.8 mmol/L (3.3-5.1); Sodium 139 mmol/L (135-145); Total Protein 7.8 g/dL (6.5-8.0); Triglycerides 228 mg/dL
[2021-12-16 11:41] LABS: Thyroid Stimulating Hormone 0.66 uIU/mL (0.32-4.0)
[2021-12-16 11:54] LABS: Creatinine Urine 129.19 mg/dL
[2021-12-16 12:08] LABS: Total Protein Urine Random 249 mg/dL (<12)
[2021-12-20 12:42] LABS: Calcium (PTHI) 9.3 mg/dL (8.6-10.4); PTHI 120 pg/mL (16-77)
== END 2021-12-16 09:44 | disposition home or self-care (01) ==
LOC: HO.LAB 09:43
PROVIDERS: Absent Provider Internal Medicine Hypertension Specialist; PCP Internal Medicine; Visit Provider Internal Medicine
DX: I12.9 Hypertensive chronic kidney disease with stage 1 through stage 4 chronic kidney disease, or unspecified chronic kidney disease (principal); E11.22 Type 2 diabetes mellitus with diabetic chronic kidney disease; N18.9 Chronic kidney disease, unspecified; E11.319 Type 2 diabetes mellitus with unspecified diabetic retinopathy without macular edema; E78.00 Pure hypercholesterolemia, unspecified
CPT/HCPCS: 36415; 80053; 80061; 82043; 83036; 83970; 84156; 84443; 85025

== ENCOUNTER 2022-02-21 12:42 | Outpatient (RCR) | payer OTHER, SELFPAY ==
--- NOTE | ~2022-02-21 | XR_ITS ---
EXAMINATION: XR FOOT, RIGHT EXAMINATION: XR foot RT min 3V CLINICAL INFORMATION: Nonhealing wound of right foot COMPARISON: Foot radiographs 10/21/2021 TECHNIQUE: 3 views of the foot FINDINGS: No fracture or dislocation. Again seen are advanced chronic dysmorphic changes of the midfoot and hindfoot compatible with history of Charcot joint. There is diffuse soft tissue swelling about the fifth digit without definite focal osteopenia, periosteal reaction or cortical erosion to favor osteomyelitis however views are suboptimal given the chronic deformity of the foot. No joint effusion. Atherosclerotic vascular calcification. XR/XR foot RT min 3V IMPRESSION: Again seen are advanced chronic dysmorphic changes of the midfoot and hindfoot compatible with history of Charcot joint. There is diffuse soft tissue swelling about the fifth digit without definite focal osteopenia, periosteal reaction or cortical erosion to favor osteomyelitis however views are suboptimal given the chronic deformity of the foot and if clinical concern MR could be obtained for further evaluation.
== END 2022-10-07 10:36 | disposition home or self-care (01) ==
LOC: HO.WCC 12:42
PROVIDERS: PCP Internal Medicine; Visit Provider Surgery
DX: E11.621 Type 2 diabetes mellitus with foot ulcer (principal); L97.512 Non-pressure chronic ulcer of other part of right foot with fat layer exposed; L97.515 Non-pressure chronic ulcer of other part of right foot with muscle involvement without evidence of necrosis; E11.610 Type 2 diabetes mellitus with diabetic neuropathic arthropathy; Z79.4 Long term (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 insulin; Z79.899 Other long term (current) drug therapy; Z87.891 Personal history of nicotine dependence
CPT/HCPCS: 11042; 11043; 73630; 99212

== ENCOUNTER 2022-03-18 10:54 | Outpatient (REF) | payer OTHER, SELFPAY ==
[2022-03-18 11:39] LABS: Hematocrit 36.5 % (37.0-47.0); Hemoglobin 11.9 g/dl (12.0-16.0); Mean Corpuscular HGB Conc 32.6 g/dl (31.0-35.0); Mean Corpuscular Hemoglobin 28.7 pg (27.0-33.0); Mean Corpuscular Volume 88.2 fL (80.0-98.0); Mean Platelet Volume 10.1 fL (9.4-12.3); Platelet Count 403 X10*3/uL (160-400); Red Blood Count 4.14 X10*6/uL (4.20-5.50); Red Cell Distribution Width 12.5 % (11.0-16.0); White Blood Count 9.7 X10*3/uL (4.8-10.8)
[2022-03-18 12:05] LABS: Estimated Average Glucose 157 mg/dL; Hemoglobin A1c % 7.1 %
[2022-03-18 12:20] LABS: Alanine Aminotransferase 18 U/L (0-31); Albumin Level 4.2 g/dL (3.5-5.0); Alkaline Phosphatase 82 U/L (39-117); Anion Gap 15 (12-20); Aspartate Amino Transferase 17 U/L (5-31); Bilirubin Total 0.4 mg/dL (0.0-1.0); Blood Urea Nitrogen 27 mg/dL (9-16); Calcium 9.5 mg/dL (8.4-10.2); Carbon Dioxide 25 mmol/L (22-29); Chloride 104 mmol/L (96-108); Estimated Glomerular Filt Rate 40; Glucose Random 130 mg/dL (60-115); Potassium 4.9 mmol/L (3.3-5.1); Sodium 139 mmol/L (135-145); Total Protein 7.4 g/dL (6.5-8.0)
[2022-03-18 12:52] LABS: Creatinine Urine 31.78 mg/dL; Protein/Creatinine Ratio, Ur 1.76 (<0.2); Total Protein Urine Random 56 mg/dL (<12)
[2022-03-21 15:44] LABS: Calcium (PTHI) 9.6 mg/dL (8.6-10.4); PTHI 94 pg/mL (16-77)
== END 2022-03-18 10:55 | disposition home or self-care (01) ==
LOC: HO.LAB 10:54
PROVIDERS: Absent Provider Internal Medicine Hypertension Specialist; PCP Internal Medicine; Visit Provider Internal Medicine
DX: Z00.01 Encounter for general adult medical examination with abnormal findings (principal); E11.22 Type 2 diabetes mellitus with diabetic chronic kidney disease; N18.32 Chronic kidney disease, stage 3b; E11.40 Type 2 diabetes mellitus with diabetic neuropathy, unspecified; E78.00 Pure hypercholesterolemia, unspecified
CPT/HCPCS: 36415; 80053; 83036; 83970; 84156; 85027

== ENCOUNTER 2022-06-15 09:41 | Outpatient (REF) | payer OTHER, SELFPAY ==
[2022-06-15 11:00] LABS: Estimated Average Glucose 160 mg/dL; Hemoglobin A1c % 7.2 %
[2022-06-15 11:21] LABS: Alanine Aminotransferase 15 U/L (0-31); Albumin Level 4.1 g/dL (3.5-5.0); Alkaline Phosphatase 71 U/L (39-117); Anion Gap 15 (12-20); Aspartate Amino Transferase 16 U/L (5-31); Bilirubin Total 0.4 mg/dL (0.0-1.0); Blood Urea Nitrogen 28 mg/dL (9-16); Calcium 9.2 mg/dL (8.4-10.2); Carbon Dioxide 23 mmol/L (22-29); Chloride 108 mmol/L (96-108); Estimated Glomerular Filt Rate 39; Glucose Random 125 mg/dL (60-115); Potassium 5.3 mmol/L (3.3-5.1); Sodium 141 mmol/L (135-145); Total Protein 7.2 g/dL (6.5-8.0)
== END 2022-06-15 09:42 | disposition home or self-care (01) ==
LOC: HO.LAB 09:41
PROVIDERS: PCP Internal Medicine; Visit Provider Internal Medicine
DX: I12.9 Hypertensive chronic kidney disease with stage 1 through stage 4 chronic kidney disease, or unspecified chronic kidney disease (principal); E11.22 Type 2 diabetes mellitus with diabetic chronic kidney disease; N18.9 Chronic kidney disease, unspecified; E11.40 Type 2 diabetes mellitus with diabetic neuropathy, unspecified; R80.8 Other proteinuria; M81.0 Age-related osteoporosis without current pathological fracture
CPT/HCPCS: 36415; 80053; 82306; 83036

== ENCOUNTER 2022-09-15 09:54 | Outpatient (REF) | payer OTHER, SELFPAY ==
[2022-09-15 11:23] LABS: Estimated Average Glucose 160 mg/dL; Hemoglobin A1c % 7.2 %
[2022-09-15 11:44] LABS: Alanine Aminotransferase 16 U/L (0-31); Alkaline Phosphatase 72 U/L (39-117); Anion Gap 18 (12-20); Aspartate Amino Transferase 16 U/L (5-31); Bilirubin Total 0.3 mg/dL (0.0-1.0); Blood Urea Nitrogen 25 mg/dL (9-16); Calcium 9.7 mg/dL (8.4-10.2); Carbon Dioxide 22 mmol/L (22-29); Chloride 105 mmol/L (96-108); Estimated Glomerular Filt Rate 42; Glucose Random 183 mg/dL (60-115); Potassium 4.6 mmol/L (3.3-5.1); Sodium 140 mmol/L (135-145); Total Protein 7.8 g/dL (6.5-8.0)
== END 2022-09-15 09:55 | disposition home or self-care (01) ==
LOC: HO.LAB 09:54
PROVIDERS: PCP Internal Medicine; Visit Provider Internal Medicine
DX: I12.9 Hypertensive chronic kidney disease with stage 1 through stage 4 chronic kidney disease, or unspecified chronic kidney disease (principal); E11.22 Type 2 diabetes mellitus with diabetic chronic kidney disease; N18.9 Chronic kidney disease, unspecified; E11.40 Type 2 diabetes mellitus with diabetic neuropathy, unspecified; E21.1 Secondary hyperparathyroidism, not elsewhere classified; R80.8 Other proteinuria
CPT/HCPCS: 36415; 80053; 83036

== ENCOUNTER 2022-11-10 09:34 | Outpatient (REF) | payer OTHER, SELFPAY ==
[2022-11-10 10:08] LABS: MANUAL DIFF FLAG NO
[2022-11-10 10:39] LABS: Hematocrit 36.9 % (37.0-47.0); Mean Corpuscular HGB Conc 32.5 g/dl (31.0-35.0); Mean Corpuscular Hemoglobin 28.5 pg (27.0-33.0); Mean Corpuscular Volume 87.6 fL (80.0-98.0); Mean Platelet Volume 10.2 fL (9.4-12.3); Platelet Count 365 X10*3/uL (160-400); Red Blood Count 4.21 X10*6/uL (4.20-5.50); Red Cell Distribution Width 13.1 % (11.0-16.0); White Blood Count 9.9 X10*3/uL (4.8-10.8)
[2022-11-10 10:40] LABS: Basophils Percent Auto 0.4 % (0-2); Eosinophils Absolute Auto 0.2 X10*3/uL (0.0-0.4); Eosinophils Percent Auto 2.3 % (0-4); Hematocrit 38.3 % (37.0-47.0); Hemoglobin 12.3 g/dl (12.0-16.0); Imm Gran Abs Auto 0.07 X10*3/uL (0.00-0.03); Imm Gran Pct Auto 0.7 % (0.0-0.4); Lymphocytes Absolute Auto 2.1 X10*3/uL (1.2-4.9); Lymphocytes Percent Auto 20.3 % (20-40); Mean Corpuscular HGB Conc 32.1 g/dl (31.0-35.0); Mean Corpuscular Hemoglobin 28.4 pg (27.0-33.0); Mean Corpuscular Volume 88.5 fL (80.0-98.0); Mean Platelet Volume 10.2 fL (9.4-12.3); Monocytes Absolute Auto 0.7 X10*3/uL (0.1-1.2); Monocytes Percent Auto 6.2 % (2-11); Neutrophils Absolute Auto 7.4 x10*3/uL (2.0-8.3); Neutrophils Percent Auto 70.1 % (45-73); Platelet Count 390 X10*3/uL (160-400); Red Blood Count 4.33 X10*6/uL (4.20-5.50); Red Cell Distribution Width 13.1 % (11.0-16.0); White Blood Count 10.5 X10*3/uL (4.8-10.8)
[2022-11-10 11:20] LABS: Anion Gap 15 (12-20); Blood Urea Nitrogen 27 mg/dL (9-16); Calcium 9.8 mg/dL (8.4-10.2); Carbon Dioxide 23 mmol/L (22-29); Chloride 106 mmol/L (96-108); Estimated Glomerular Filt Rate 41; Glucose Random 105 mg/dL (60-115); Potassium 4.8 mmol/L (3.3-5.1); Sodium 139 mmol/L (135-145)
[2022-11-10 11:31] LABS: Alanine Aminotransferase 22 U/L (0-31); Albumin Level 4.4 g/dL (3.5-5.0); Alkaline Phosphatase 70 U/L (39-117); Anion Gap 15 (12-20); Aspartate Amino Transferase 23 U/L (5-31); Bilirubin Total 0.5 mg/dL (0.0-1.0); Blood Urea Nitrogen 27 mg/dL (9-16); Carbon Dioxide 24 mmol/L (22-29); Chloride 107 mmol/L (96-108); Cholesterol 201 mg/dL (<200); Estimated Glomerular Filt Rate 40; Glucose Random 107 mg/dL (60-115); HDL Cholesterol 48 mg/dL (>40); LDL Cholesterol Calculated 102 mg/dL (<100); Sodium 141 mmol/L (135-145); Total Protein 8.3 g/dL (6.5-8.0); Triglycerides 259 mg/dL (<150)
[2022-11-10 11:33] LABS: Creatinine Urine 52.43 mg/dL; Total Protein Urine Random 105 mg/dL (<12)
[2022-11-10 11:35] LABS: Creatinine Urine 52.86 mg/dL
[2022-11-10 11:45] LABS: Ferritin 94 ng/mL (10-250)
[2022-11-10 11:58] LABS: Folate 10.7 ng/mL (> or = 4.0); Vitamin B12 1878 pg/mL (200-900)
[2022-11-10 12:04] LABS: Microalbum/Creatinine Ratio Ur 1363.9 ug/mg cr (<30)
[2022-11-10 12:09] LABS: Estimated Average Glucose 157 mg/dL; Hemoglobin A1c % 7.1 % (<6.0)
[2022-11-11 16:58] LABS: Calcium (PTHI) 9.2 mg/dL (8.6-10.4); PTHI 90 pg/mL (16-77)
== END 2022-11-10 09:35 | disposition home or self-care (01) ==
LOC: HO.LAB 09:34
PROVIDERS: Internal Medicine Hypertension Specialist; PCP Internal Medicine; Visit Provider Internal Medicine
DX: I12.9 Hypertensive chronic kidney disease with stage 1 through stage 4 chronic kidney disease, or unspecified chronic kidney disease (principal); E11.22 Type 2 diabetes mellitus with diabetic chronic kidney disease; N18.31 Chronic kidney disease, stage 3a; D63.1 Anemia in chronic kidney disease; E78.00 Pure hypercholesterolemia, unspecified; F32.9 Major depressive disorder, single episode, unspecified; F41.0 Panic disorder [episodic paroxysmal anxiety]; R80.8 Other proteinuria
CPT/HCPCS: 36415; 80048; 80053; 80061; 82043; 82570; 82607; 82728; 82746; 83036; 83970; 84156; 85025; 85027

== ENCOUNTER 2023-01-04 12:47 | Outpatient (RCR) | payer BC, OTHER, SELFPAY | END 2023-12-22 15:22 | disposition admitted as inpatient to this hospital (09) | LOC: HO.WCC 12:47 | PROVIDERS: PCP Internal Medicine; Visit Provider Surgery | DX: E11.621 Type 2 diabetes mellitus with foot ulcer (principal); E11.51 Type 2 diabetes mellitus with diabetic peripheral angiopathy without gangrene; L97.512 Non-pressure chronic ulcer of other part of right foot with fat layer exposed; E11.610 Type 2 diabetes mellitus with diabetic neuropathic arthropathy; E11.40 Type 2 diabetes mellitus with diabetic neuropathy, unspecified; E11.22 Type 2 diabetes mellitus with diabetic chronic kidney disease; I12.9 Hypertensive chronic kidney disease with stage 1 through stage 4 chronic kidney disease, or unspecified chronic kidney disease; N18.9 Chronic kidney disease, unspecified; Z87.891 Personal history of nicotine dependence; Z79.4 Long term (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 insulin; Z79.899 Other long term (current) drug therapy | CPT/HCPCS: 11042; 11043; 11044; 29445; 97597; 99212; 99213 ==

== ENCOUNTER 2023-03-16 09:44 | Outpatient (REF) | payer OTHER, SELFPAY ==
[2023-03-16 10:48] LABS: Estimated Average Glucose 157 mg/dL; Hemoglobin A1c % 7.1 % (<6.0)
[2023-03-16 11:14] LABS: Alanine Aminotransferase 18 U/L (0-31); Albumin Level 3.8 g/dL (3.5-5.0); Alkaline Phosphatase 73 U/L (39-117); Anion Gap 11 (12-20); Bilirubin Total 0.4 mg/dL (0.0-1.0); Blood Urea Nitrogen 27 mg/dL (9-16); Calcium 9.2 mg/dL (8.4-10.2); Carbon Dioxide 25 mmol/L (22-29); Chloride 108 mmol/L (96-108); Estimated Glomerular Filt Rate 42; Glucose Random 103 mg/dL (60-115); Potassium 4.2 mmol/L (3.3-5.1); Sodium 140 mmol/L (135-145)
[2023-03-16 11:26] LABS: Aspartate Amino Transferase 20 U/L (5-31)
== END 2023-03-16 09:45 | disposition home or self-care (01) ==
LOC: HO.LAB 09:44
PROVIDERS: PCP Internal Medicine; Visit Provider Internal Medicine
DX: Z00.01 Encounter for general adult medical examination with abnormal findings (principal); I12.9 Hypertensive chronic kidney disease with stage 1 through stage 4 chronic kidney disease, or unspecified chronic kidney disease; E11.22 Type 2 diabetes mellitus with diabetic chronic kidney disease; N18.9 Chronic kidney disease, unspecified; E11.621 Type 2 diabetes mellitus with foot ulcer; F32.5 Major depressive disorder, single episode, in full remission; R80.8 Other proteinuria
CPT/HCPCS: 36415; 80053; 83036

== ENCOUNTER 2023-06-15 09:37 | Outpatient (REF) | payer OTHER, SELFPAY ==
[2023-06-15 10:00] LABS: MANUAL DIFF FLAG NO
[2023-06-15 10:34] LABS: Basophils Percent Auto 0.3 % (0-2); Eosinophils Absolute Auto 0.3 X10*3/uL (0.0-0.4); Eosinophils Percent Auto 3.3 % (0-4); Hematocrit 35.7 % (37.0-47.0); Hemoglobin 11.7 g/dl (12.0-16.0); Lymphocytes Percent Auto 19.1 % (20-40); Mean Corpuscular HGB Conc 32.8 g/dl (31.0-35.0); Mean Corpuscular Hemoglobin 28.9 pg (27.0-33.0); Mean Corpuscular Volume 88.1 fL (80.0-98.0); Mean Platelet Volume 9.8 fL (9.4-12.3); Monocytes Absolute Auto 0.7 X10*3/uL (0.1-1.2); Monocytes Percent Auto 6.5 % (2-11); Neutrophils Absolute Auto 7.2 x10*3/uL (2.0-8.3); Neutrophils Percent Auto 69.8 % (45-73); Platelet Count 508 X10*3/uL (160-400); Red Blood Count 4.05 X10*6/uL (4.20-5.50); Red Cell Distribution Width 13.9 % (11.0-16.0); White Blood Count 10.3 X10*3/uL (4.8-10.8)
[2023-06-15 11:27] LABS: Ferritin 79 ng/mL (10-250)
== END 2023-06-15 09:38 | disposition home or self-care (01) ==
LOC: HO.LAB 09:37
PROVIDERS: PCP Internal Medicine; Visit Provider Internal Medicine
DX: F32.5 Major depressive disorder, single episode, in full remission (principal); L98.1 Factitial dermatitis; E11.22 Type 2 diabetes mellitus with diabetic chronic kidney disease; I12.9 Hypertensive chronic kidney disease with stage 1 through stage 4 chronic kidney disease, or unspecified chronic kidney disease; D63.8 Anemia in other chronic diseases classified elsewhere; D63.1 Anemia in chronic kidney disease; N18.9 Chronic kidney disease, unspecified
CPT/HCPCS: 36415; 82728; 85025

== ENCOUNTER 2023-07-24 17:58 | Emergency (ER) | payer OTHER, SELFPAY ==
--- NOTE | 2023-07-24 | ECG_ITS ---
Test Reason : SYNCOPE Blood Pressure : / mmHG Vent. 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
--- NOTE | ~2023-07-24 | XR_ITS ---
EXAMINATION: XR ANKLE, LEFT CLINICAL INFORMATION: Fall COMPARISON: None available. TECHNIQUE: AP, lateral, and mortise views of the left ankle. FINDINGS: There is mild bilateral soft tissue swelling. No fractures are seen. The ankle mortise appears stable. No ankle joint effusion is detected. Vascular calcifications are present. XR/XR ankle LT 2V IMPRESSION: Soft tissue swelling without fracture.
--- NOTE | ~2023-07-24 | CT_ITS ---
EXAMINATION: CT HEAD WITHOUT CONTRAST CLINICAL INFORMATION: Fall COMPARISON: Previous head CT most recent July 2021 TECHNIQUE: Contiguous axial imaging was performed from the skull base to vertex without intravenous administration of contrast. This CT examination was performed using dose optimization techniques as appropriate, variously including the following: *Automated exposure control *Adjustment of mA and/or kV according to patient size (this includes techniques or standardized protocols for targeted exams where dose is matched to indication/reason for exam; i.e. extremities or head) *Use of iterative reconstruction technique DLP: 697 mGy-cm FINDINGS: There is no evidence of an extra-axial collection. There is no evidence of intra or extra-axial hemorrhage. The ventricles are appropriate. Extra-axial CSF spaces appear slightly prominent suggestive of atrophy. There is extensive nonspecific periventricular white matter disease, particularly periventricular white matter adjacent to the bilateral frontal horns of the lateral ventricles. It is difficult to exclude lacunar infarcts in the left basal ganglia, cerebellum and periventricular white matter adjacent to both frontal horns. No mass or mass effect. No skull fracture. Visualized sinuses mastoid air cells and middle ears are clear. CT/CT head/brain wo IV con IMPRESSION: No acute traumatic findings. Atrophy and extensive white matter changes. Cannot exclude small lacunar infarcts.
--- NOTE | ~2023-07-24 | CT_ITS ---
EXAMINATION: CT CERVICAL SPINE WITHOUT CONTRAST CLINICAL INFORMATION: Fall COMPARISON: None available. TECHNIQUE: Axial images through the cervical spine without contrast. Sagittal and coronal reconstructions. This CT examination was performed using dose optimization techniques as appropriate, variously including the following: *Automated exposure control *Adjustment of mA and/or kV according to patient size (this includes techniques or standardized protocols for targeted exams where dose is matched to indication/reason for exam; i.e. extremities or head) *Use of iterative reconstruction technique DLP: 332 mGy-cm FINDINGS: Curvature of the lower cervical and upper thoracic spine to the right. Bone alignment otherwise normal. No fracture or dislocation. Normal disc spaces. Large left thyroid nodule/goiter and displacement of the trachea to the right and mass effect. This measures 7.5 x 6.5 x 12 cm. Follow-up thyroid ultrasound recommended. Visualized lung apices are clear. CT/CT cervical spine wo IV con IMPRESSION: No fracture or dislocation. Large left thyroid nodule/goiter. Follow-up thyroid ultrasound recommended. Fleischner guidelines were followed.
[2023-07-24 18:18] VITALS: BP 172/63; BP 186/92; PULSE 72; PULSE 73; RESP 16; TEMP 36.2; O2SAT 95; O2SAT 96; BMI 33.7
[2023-07-24 18:39] LABS: Basophils Percent Auto 0.4 % (0-2); Eosinophils Absolute Auto 0.2 X10*3/uL (0.0-0.4); Eosinophils Percent Auto 1.7 % (0-4); Hematocrit 36.2 % (37.0-47.0); Hemoglobin 12.1 g/dl (12.0-16.0); Imm Gran Abs Auto 0.11 X10*3/uL (0.00-0.03); Lymphocytes Absolute Auto 1.4 X10*3/uL (1.2-4.9); Lymphocytes Percent Auto 13.1 % (20-40); MANUAL DIFF FLAG NO; Mean Corpuscular HGB Conc 33.4 g/dl (31.0-35.0); Mean Corpuscular Volume 86.8 fL (80.0-98.0); Mean Platelet Volume 9.4 fL (9.4-12.3); Monocytes Absolute Auto 0.6 X10*3/uL (0.1-1.2); Monocytes Percent Auto 5.1 % (2-11); Neutrophils Absolute Auto 8.6 x10*3/uL (2.0-8.3); Neutrophils Percent Auto 78.7 % (45-73); Platelet Count 411 X10*3/uL (160-400); Red Blood Count 4.17 X10*6/uL (4.20-5.50); Red Cell Distribution Width 13.4 % (11.0-16.0); White Blood Count 10.9 X10*3/uL (4.8-10.8)
--- NOTE | 2023-07-24 18:50 | ED_ITS ---
HPI - Fall General Chief Complaint: Dizziness Stated Complaint: [facility] fall, nausea on blood thinners, per ems Time Seen by Provider: 07/24/23 18:46 Source: patient Mode of arrival: ambulatory Limitations: no limitations History of Present Illness ED Provider: delores DRUMMOND Narrative: Patient's history of diabetic neuropathy hypertension chronic vertigo was bending down felt dizzy and fell down no significant head injury patient was nauseated and vomited complaining of left ankle pain also does have a chronic wound on the right foot and follows wound cleaning Related Data Home Medications ?Medication ?Instructions ?Recorded ?Confirmed ferrous sulfate 325 mg (65 mg 1 tab PO DAILY 08/19/20 04/23/21 iron) tablet,delayed release furosemide 40 mg tablet 1 tab PO BID 08/19/20 04/23/21 atorvastatin 40 mg tablet 40 mg PO DAILY 12/25/20 04/23/21 cyanocobalamin (vitamin B-12) 1,000 mcg PO DAILY 12/25/20 04/23/21 1,000 mcg tablet olmesartan 40 mg tablet 40 mg PO DAILY 12/25/20 04/23/21 Previous Rx's ?Medication ?Instructions ?Recorded doxycycline monohydrate 100 mg 100 mg PO BID #20 caps 08/26/20 capsule hydralazine 25 mg tablet 25 mg PO TID #90 tabs 08/26/20 flash glucose sensor (FreeStyle #2 ea 04/06/21 Amber 14 Day Sensor kit) blood sugar diagnostic (FreeStyle #100 ea 04/23/21 Lite Strips) blood-glucose meter (FreeStyle #1 ea 04/23/21 Lite Meter kit) lancets 28 gauge (FreeStyle #100 ea 04/23/21 Lancets) insulin lispro 200 unit/mL (3 mL) See Rx Instructions subcut QID #6 04/26/21 subcutaneous pen (Humalog KwikPen mL U-200 Insulin) cefuroxime axetil 250 mg tablet 250 mg PO BID 7 days #14 tabs 08/03/21 meclizine 12.5 mg tablet 12.5 mg PO TID PRN motion sickness 08/03/21 #20 tabs pen needle, diabetic 32 gauge x #150 ea 08/09/21 (BD Adela 2nd Gen Pen Needle) insulin glargine 100 unit/mL (3 38 unit (0.38 mL) subcut DAILY #15 11/29/21 mL) subcutaneous pen (Lantus mL Solostar U-100 Insulin) meclizine 25 mg tablet 25 mg PO TID PRN dizziness #20 tabs 07/25/23 Allergies Allergy/AdvReac Type Severity Reaction Status Date / Time amlodipine [From Norvasc] Allergy Mild Swelling Verified 07/24/23 18:21 Penicillins Allergy Mild Rash Verified 07/24/23 18:21 erythromycin base Allergy Unknown Unknown Verified 07/24/23 18:21 clindamycin [CLINDAMYCIN] AdvReac Intermediate Diarrhea Verified 07/24/23 18:21 NephrAmine Allergy Unknown Swelling Uncoded 07/24/23 18:21 Review of Systems 2 Review of Systems: Yes all other systems are reviewed and are negative [facility] Past Medical History Medical History S/P angiogram of extremity (08/25/20) Diabetic foot ulcer associated with type 2 diabetes mellitus Cellulitis PAD (peripheral artery disease) Non-toxic multinodular goiter Dyslipidemia 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 Diabetic neuropathy associated with type 2 diabetes mellitus Diabetic retinopathy associated with type 2 diabetes mellitus Diabetic 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 Diabetes type 2, uncontrolled Foot osteomyelitis, right Surgical History Hx of cataract extraction Hx of LASIK Hx of eye surgery Hx of foot surgery Family History Family History Father COPD (chronic obstructive pulmonary disease) Diabetes Mother Heart disease Social History Social History Household Members: None Housing: House Do you presently have visiting nurse or other home services: No Alcohol intake: current Alcohol intake frequency: does not drink Patient Tobacco Use Status: Former Tobacco user Smoked in Last 30 Days: No Use of substances other than those prescribed or required for medical reasons: No Advance Directives: No Advance Directives Information Provided: No Do you have a plan to hurt others: No Plan Patient : No service: No Current occupational status: employed Physical Exam 2 Vital Signs: Vital Signs: Last Vital Signs Temp 97.6 F 07/25/23 00:27 Pulse 73 07/25/23 01:33 Resp 16 07/25/23 01:33 BP 176/68 H 07/25/23 01:33 Pulse Ox 95 07/25/23 01:33 O2 Del Method Room Air 07/25/23 01:33 BMI result Body Mass Index 33.7 Appearance: Alert. Oriented X3. No acute distress. Eyes: PERRLA, No Nystagmus ENT: Pharynx normal. Oral Mucosa moist Neck: Normal inspection. Neck supple. No midline tenderness CVS: Normal heart rate and rhythm. Pulses normal. Respiratory: No respiratory distress. Equal air entry bilateral, no wheezing/rales/rhonchi Abdomen: Soft and nontender. Bowel sounds are present, no mass palpable, no CVA tenderness Skin: Skin warm and dry. Normal skin color. Normal skin turgor. Extremities: No lower extremity edema. No calf tenderness right foot in dressing Neuro: Oriented X 3. No motor deficit. Decreased sensitive to light touch lower extremity.No cerebellar signs , cranial nerves II-XII intact Medications Administered Discontinued Medications Generic Name Dose Route Start Last Admin Trade Name Freq PRN Reason Stop Dose Admin Meclizine HCl 25 mg 07/25/23 01:02 07/25/23 01:19 Meclizine Hcl 25 Mg Tablet PO 07/25/23 01:03 25 mg ONCE ONE Administration Medical Decision Making Medical Decision Making [facility] Narrative: Patient with chronic vertigo feeling able to ambulate in the ER with assistance will discharge patient home advised to follow with PCP CT head and C-spine negative labs are stable Differential Diagnosis Differential Diagnoses: The differential diagnosis associated with the presentation includes Lab Data 07/24/23 18:33 07/24/23 18:33 Labs: Lab Results 07/24/23 07/25/23 Range/Units 18:33 00:24 WBC 10.9 H (4.8-10.8) X10*3/uL RBC 4.17 L (4.20-5.50) X10*6/uL Hgb 12.1 (12.0-16.0) g/dl Hct 36.2 L (37.0-47.0) % MCV 86.8 (80.0-98.0) fL MCH 29.0 (27.0-33.0) pg MCHC 33.4 (31.0-35.0) g/dl RDW 13.4 (11.0-16.0) % Plt Count 411 H (160-400) X10*3/uL MPV 9.4 (9.4-12.3) fL Immature Gran % (Auto) 1.0 H (0.0-0.4) % Neut % (Auto) 78.7 H (45-73) % Lymph % (Auto) 13.1 L (20-40) % [place] % (Auto) 5.1 (2-11) % Eos % (Auto) 1.7 (0-4) % Baso % (Auto) 0.4 (0-2) % Lymph # (Auto) 1.4 (1.2-4.9) X10*3/uL [place] # (Auto) 0.6 (0.1-1.2) X10*3/uL Eos # (Auto) 0.2 (0.0-0.4) X10*3/uL Baso # (Auto) 0.0 (0.0-0.2) X10*3/uL Abs Immat Gran (auto) 0.11 H (0.00-0.03) X10*3/uL Absolute Neuts (auto) 8.6 H (2.0-8.3) x10*3/uL Absolute Nucleated RBC 0.000 (0.0-0.012) X10*3/uL Nucleated RBC % (auto) 0.0 (0.0-0.2) /100WBC PT 12.5 (11.1-13.3) SEC INR 1.0 (0.9-1.1) APTT 33.6 (26.0-36.8) SEC Sodium 141 (135-145) mmol/L Potassium 4.6 (3.3-5.1) mmol/L Chloride 105 (96-108) mmol/L Carbon Dioxide 28 (22-29) mmol/L Anion Gap 13 (12-20) BUN 31 H (9-16) mg/dL Creatinine 1.54 H (0.5-1.4) mg/dL Estim Creat Clear Calc 44.5 Estimated GFR 34 Random Glucose 154 H (60-115) mg/dL Calcium 9.6 (8.4-10.2) mg/dL Total Bilirubin 0.4 (0.0-1.0) mg/dL AST 19 (5-31) U/L ALT 18 (0-31) U/L Alkaline Phosphatase 75 (39-117) U/L Troponin I High Sens 3.2 (<3.5-17.0) ng/L B-Natriuretic Peptide 50 (<100) pg/mL Total Protein 7.9 (6.5-8.0) g/dL Albumin 4.0 (3.5-5.0) g/dL Lipase 39 (8-78) U/L Urine Color Yellow Urine Appearance Clear Urine pH 6.5 (5.0-9.0) Ur Specific [place] 1.015 (1.005-1.025) Urine Protein 300 (3+) H (Neg-Trace) mg/dL Urine Glucose (UA) 100 H (Negative) mg/dL Urine Ketones Negative (Negative) mg/dL Urine Blood Negative (Negative) Urine Nitrite Negative (Negative) Ur Leukocyte Esterase Negative (Negative) Urine RBC 0-2 (0-2) /HPF Urine WBC 0-5 (0-5) /HPF Ur Squamous Epith Cells 0-2 (0-2) /HPF Urine Bacteria None Seen (None Seen) Hyaline Casts 0-2 (0-2) /LPF Independent Interpretation I performed an independent interpretation of an: EKG Interpretation: Normal sinus rhythm LVH heart rate 66 beats per minute normal interval normal axis no acute ST T wave changes no acute ischemia Discharge Plan Discharge Clinical Impression: Fall, Dizziness Patient Disposition: Home, Self-Care Instructions: Dizziness (ED), Fall Prevention (ED) Additional Instructions: Care and cautions as advised Medicine for dizziness every 8 hours as needed Follow-up with your PCP Prescriptions: New meclizine 25 mg tablet 25 mg PO TID PRN (Reason: dizziness) Qty: 20 0RF No Action (DME) FreeStyle Amber 14 Day Sensor Kit topical Q2W Qty: 2 11RF Rx Instructions: As directed Humalog KwikPen Insulin 200 unit/mL (3 mL) insulin pen See Rx Instructions subcut QID Qty: 6 6RF Rx Instructions: 10 units for breakfast and lunch, 14 units for dinner, 4 unit snac subcut 4 times a day; (DME) pen needle, diabetic [BD Adela 2nd Gen Pen Needle] 32 gauge x 5/32 needle MISCELLANEOUS 5XD Qty: 150 6RF Rx Instructions: As directed 5 x/day insulin glargine [Lantus Solostar U-100 Insulin] 100 unit/mL (3 mL) insulin pen 38 unit subcut DAILY Qty: 15 5RF furosemide 40 mg tablet 1 tab PO BID ferrous sulfate 325 mg (65 mg iron) tablet,delayed release (DR/EC) 1 tab PO DAILY doxycycline monohydrate 100 mg capsule 100 mg PO BID Qty: 20 0RF hydralazine 25 mg tablet 25 mg PO TID Qty: 90 1RF cefuroxime axetil 250 mg tablet 250 mg PO BID 7 Days Qty: 14 0RF meclizine 12.5 mg tablet 12.5 mg PO TID PRN (Reason: motion sickness) Qty: 20 0RF olmesartan 40 mg tablet 40 mg PO DAILY atorvastatin 40 mg tablet 40 mg PO DAILY cyanocobalamin (vitamin B-12) 1,000 mcg tablet 1,000 mcg PO DAILY (DME) blood-glucose meter [FreeStyle Lite Meter] Kit See Rx Instructions .ROUTE .MEDSUPPLY Qty: 1 0RF Rx Instructions: As directed (DME) FreeStyle Lite Strips Strip See Rx Instructions .ROUTE .MEDSUPPLY Qty: 100 11RF Rx Instructions: As directed three times a day (DME) lancets [FreeStyle Lancets] 28 gauge misc See Rx Instructions .ROUTE .MEDSUPPLY Qty: 100 11RF Rx Instructions: Three times a day Print Language: Luxembourgish
[2023-07-24 18:56] LABS: Alanine Aminotransferase 18 U/L (0-31); Alkaline Phosphatase 75 U/L (39-117); Anion Gap 13 (12-20); Aspartate Amino Transferase 19 U/L (5-31); Bilirubin Total 0.4 mg/dL (0.0-1.0); Blood Urea Nitrogen 31 mg/dL (9-16); Calcium 9.6 mg/dL (8.4-10.2); Carbon Dioxide 28 mmol/L (22-29); Chloride 105 mmol/L (96-108); Creatinine Clr Calc Pharmacy 44.5; Estimated Glomerular Filt Rate 34; Glucose Random 154 mg/dL (60-115); Lipase 39 U/L (8-78); Potassium 4.6 mmol/L (3.3-5.1); Sodium 141 mmol/L (135-145); Total Protein 7.9 g/dL (6.5-8.0)
[2023-07-24 18:59] LABS: B Type Natriuretic Peptide 50 pg/mL (<100)
[2023-07-24 19:01] LABS: Prothrombin Time 12.5 SEC (11.1-13.3)
[2023-07-24 19:03] LABS: Partial Thromboplastin Time 33.6 SEC (26.0-36.8); Troponin-I High Sensitivity 3.2 ng/L (<3.5-17.0)
--- NOTE | 2023-07-24 22:15 | PC.NURSE ---
c-collar removed by Dr. Woodson. pt is resting comfortably in stretcher, requests water. tolerating po intake. axox4. call beal within reach.
[2023-07-24 22:36] VITALS: BP 175/71; PULSE 62; RESP 17; TEMP 36.6; O2SAT 95
[2023-07-25 00:27] VITALS: BP 192/71; PULSE 64; RESP 14; TEMP 36.4; O2SAT 95
[2023-07-25 00:33] LABS: Appearance Urine Clear; Color Urine Yellow; Glucose Urine UA 100 mg/dL (Negative); Leukocyte Esterase Urine Negative (Negative); Nitrite Urine Negative (Negative); PH 6.5 (5.0-9.0); Specific Gravity - Urine 1.015 (1.005-1.025); UMIC TRIGGER UACC YES; Urine Blood Negative (Negative); Urine Ketones Negative (Negative); Urine Protein 300 (3+) mg/dL (Neg-Trace)
[2023-07-25 00:34] LABS: Bacteria Urine None Seen (None Seen); Hyaline Casts Urine 0-2 /LPF (0-2); RBC Urine 0-2 /HPF (0-2); Squamous Epithelial Cell Urine 0-2 /HPF (0-2); WBC Urine 0-5 /HPF (0-5)
--- NOTE | 2023-07-25 00:42 | PC.NURSE ---
pt ambulated with steady gait to bathroom and back to stretcher. ua sample sent to lab as pt reports has frequent utis, asymptomatic at this time. neuros intact. no focal deficits noted of extremities. no facial droop. PERRLA. pt speaking full clear sentences, axox4. pt reports dizziness however describes it as feeling motion sick. pt denies cp/sob/n/v/d. Dr. Woodson aware.
[2023-07-25] MEDS: Meclizine HCl 25 MG TABLET PO (01:19)
[2023-07-25 01:33] VITALS: BP 176/68; PULSE 73; RESP 16; O2SAT 95
[2023-07-25 02:02] VITALS: BP 176/68; PULSE 73; RESP 16; TEMP 36.6; O2SAT 95
== END 2023-07-25 02:03 | disposition home or self-care (01) ==
PROVIDERS: Emergency Provider Internal Medicine
DX: R42 Dizziness and giddiness (principal); M25.572 Pain in left ankle and joints of left foot; E11.621 Type 2 diabetes mellitus with foot ulcer; L97.519 Non-pressure chronic ulcer of other part of right foot with unspecified severity; E11.40 Type 2 diabetes mellitus with diabetic neuropathy, unspecified; I10 Essential (primary) hypertension; Z91.81 History of falling
CPT/HCPCS: 36415; 70450; 72125; 73600; 80053; 81001; 83690; 83880; 84484; 85025; 85610; 85730; 93005; 99284; 99285

== ENCOUNTER → 2023-07-24 18:23 | Outpatient (BNV) | payer OTHER, SELFPAY | PROVIDERS: Emergency Provider Internal Medicine; Visit Provider Internal Medicine | DX: R55 Syncope and collapse (principal); R94.31 Abnormal electrocardiogram [ECG] [EKG] | CPT/HCPCS: 93010 ==

== ENCOUNTER 2023-08-07 10:37 | Outpatient (AMB) | payer OTHER, SELFPAY ==
[2023-08-07 10:36] VITALS: BP 140/58; PULSE 98; O2SAT 94; BMI 32.6
--- NOTE | 2023-08-07 10:36 | HO.NEPHOV ---
Vital Signs 08/07/23 10:36 08/07/23 10:56 Height 5 ft 6 in Weight 202 lb BMI 32.6 BP 140/58 H 130/60 Blood Pressure Location Rt brachial Rt brachial Position Sitting Sitting Pulse 98 Pulse Source Pulse Oximeter Pulse Oximetry (%) 94 Oxygen Delivery Method Room Air Intake Visit Reasons: 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/ Conf Accompanied by: Self / Same As Patient Allergies amlodipine [From Norvas] Allergy (Mild, Verified 08/07/23 10:42) Swelling Penicillins Allergy (Mild, Verified 08/07/23 10:42) Rash erythromycin base Allergy (Unknown, Verified 08/07/23 10:42) Unknown clindamycin [CLINDAMYCIN] Adverse Reaction (Intermediate, Verified 08/07/23 10:42) Diarrhea NephrAmine Allergy (Unknown, Uncoded 07/24/23 18:21) Swelling Medication List - Last Reconciled 08/07/23 by Jan Bullock MD blood sugar diagnostic (FreeStyle Lite Strips) As directed three times a day blood-glucose meter (FreeStyle Lite Meter kit) As directed cyanocobalamin (vitamin B-12) 1,000 mcg PO DAILY PRN ferrous sulfate 325 mg PO DAILY PRN flash glucose sensor (FreeStyle Amber 14 Day Sensor kit) As directed furosemide 20 mg PO DAILY hydralazine 25 mg PO BID insulin glargine (Lantus Solostar U-100 Insulin) 38 units (0.38 mL) subcut DAILY insulin lispro (Humalog KwikPen U-200 Insulin) 10 units for breakfast and lunch, 14 units for dinner, 4 unit snac subcut 4 times a day; lancets (FreeStyle Lancets) Three times a day losartan 100 mg PO DAILY meclizine 12.5 mg PO TID PRN pen needle, diabetic (BD Adela 2nd Gen Pen Needle) As directed 5 x/day rosuvastatin 5 mg PO DAILY sertraline 50 mg PO DAILY HPI Comments Details: Olga is a pleasant 62-year-old woman with a history of diabetes mellitus since along with hypertension. She is well known to me. She is here today to establish continuation of care for chronic kidney disease. Two weeks ago she was in the emergency room because of dizziness. At that time serum creatinine is 1.54 which is higher than her baseline of 1.24. Olmesartan has been switched to losartan 100 mg daily. She has about 2.4 g of proteinuria based on previous lab results. Today she has no shortness of breath. No nausea or vomiting. No polyuria polydipsia. No leg edema. She lives alone. 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 Diabetes type 2, uncontrolled Foot osteomyelitis, right Surgical History Hx of cataract extraction Hx of LASIK Hx of eye surgery Hx of foot surgery Family History Father COPD (chronic obstructive pulmonary disease) Diabetes Mother Heart disease Social History Household Members: None Housing: House Do you presently have visiting nurse or other home services: No Alcohol intake: current Alcohol intake frequency: does not drink Patient Tobacco Use Status: Former Tobacco user service: No Current occupational status: employed Physical Exam Vital Signs: Last Vital Signs Pulse 98 08/07/23 10:36 BP 130/60 08/07/23 10:56 Pulse Ox 94 08/07/23 10:36 Oxygen Delivery Method Room Air 08/07/23 10:36 BMI result Body Mass Index 32.6 Const General: comfortable; No acute distress Orientation/consciousness: patient oriented x3 Eyes General: appearance normal, both eyes and all related structures Visual Graham: normal visual graham by confrontation Neck Neck: Yes supple and Yes no JVD Resp Effort & Inspection: normal respiratory effort and respiratory effort not decreased Auscultation: rhonchi Cardio Palpation: no palpable S3 and no palpable S4 Heart sounds: no rubs GI Inspection: Yes normal to inspection Palpation (GI): Soft to palpation Percussion: Yes normal to percussion Auscultation: normal bowel sounds General: Yes no CVA tenderness Back/Spine/Pelvis Back: no CVA tenderness Skin General skin exam: no petechiae and no purpura Neuro General: patient oriented x3 and no focal motor deficits Extrem General: No clubbing and Yes other (Both lower extremities a swollen) Results Reviewed Nephrology Results: Hgb 12.1 g/dl (12.0-16.0) 07/24/23 WBC 10.9 X10*3/uL (4.8-10.8) H 07/24/23 Plt Count 411 X10*3/uL (160-400) H 07/24/23 Sodium 141 mmol/L (135-145) 07/24/23 Potassium 4.6 mmol/L (3.3-5.1) 07/24/23 Chloride 105 mmol/L (96-108) 07/24/23 Carbon Dioxide 28 mmol/L (22-29) 07/24/23 BUN 31 mg/dL (9-16) H 07/24/23 Creatinine 1.54 mg/dL (0.5-1.4) H 07/24/23 Calcium 9.6 mg/dL (8.4-10.2) 07/24/23 PTH Intact 90 pg/mL (16-77) H 11/10/22 Urine Protein 300 (3+) mg/dL (Neg-Trace) H 07/25/23 Urine Creatinine 52.86 mg/dL 11/10/22 Protein/Creatinin Ratio 2.00 (<0.2) H 11/10/22 Renal US 12/03/21 Assessment & Plan Assessment & Plan (1) Diabetic nephropathy associated with type 2 diabetes mellitus: Code(s): E11.21 - Type 2 diabetes mellitus with diabetic nephropathy Category: Medical (2) 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: Code(s): I10 - Essential (primary) hypertension Category: Medical Plan 62-year-old woman with chronic kidney disease in setting of longstanding diabetes mellitus hypertension with non nephrotic range proteinuria. She probably has underlying hypertensive diabetic kidney disease. Recently there is no mild bump in serum creatinine most likely due to hypoperfusion. Differential diagnosis would include natural progression underlying disease. No reason to believe that she is any active obstruction. Blood pressure is acceptable. Plan Continue to maintain hemoglobin A1c less than 7%. Encouraged to stay on low-sodium diet. We discussed importance of weight loss. Continue with the losartan for renal protection. Maintain blood pressure less than 130/80 mm Hg. She will benefit from an SGLT2 inhibitor. I should continue to screen for comorbid conditions including anemia and secondary hyperparathyroidism. All questions were answered Orders: Orders Parathyroid Hormone Intact Today Jan Bullock MD E11.21 - Type 2 diabetes mellitus with diabetic nephropathy, I10 - Essential (primary) hypertension Vitamin D 25-OH (D2 and D3) Today Jan Bullock MD E11.21 - Type 2 diabetes mellitus with diabetic nephropathy, I10 - Essential (primary) hypertension Basic Metabolic Panel Today Jan Bullock MD E11.21 - Type 2 diabetes mellitus with diabetic nephropathy, I10 - Essential (primary) hypertension Complete Blood Count Auto Diff Today Jan Bullock MD E11.21 - Type 2 diabetes mellitus with diabetic nephropathy, I10 - Essential (primary) hypertension Total Protein Urine Random Today Jan Bullock MD E11.21 - Type 2 diabetes mellitus with diabetic nephropathy, I10 - Essential (primary) hypertension UA and rflx microscopic Today Jan Bullock MD E11.21 - Type 2 diabetes mellitus with diabetic nephropathy, I10 - Essential (primary) hypertension Creatinine Urine Today Jan Bullock MD E11.21 - Type 2 diabetes mellitus with diabetic nephropathy, I10 - Essential (primary) hypertension Magnesium Today Jan Bullock MD E11.21 - Type 2 diabetes mellitus with diabetic nephropathy, I10 - Essential (primary) hypertension Medications: Changed From hydralazine 25 mg PO TID 90 tabs 1RF To hydralazine 25 mg PO BID Jean Paul Marquez MD Coding Level of Care Code Est Pt Level 4 (65024) Diagnoses Diabetic nephropathy associated with type 2 diabetes mellitus E11.21 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 I10
[2023-08-07 10:56] VITALS: BP 130/60
== END 2023-08-07 11:00 | disposition home or self-care (01) ==
PROVIDERS: PCP Internal Medicine; Visit Provider Internal Medicine Hypertension Specialist
DX: E11.21 Type 2 diabetes mellitus with diabetic nephropathy (principal); I10 Essential (primary) hypertension
CPT/HCPCS: 99214

== ENCOUNTER → 2023-08-07 10:37 | Outpatient (BNVA) | payer OTHER, SELFPAY | PROVIDERS: PCP Internal Medicine; Visit Provider Internal Medicine Hypertension Specialist ==

== ENCOUNTER 2023-08-07 11:10 | Outpatient (REF) | payer OTHER, SELFPAY ==
[2023-08-07 13:22] LABS: Appearance Urine Hazy; Color Urine Yellow; Glucose Urine UA 100 mg/dL (Negative); Leukocyte Esterase Urine Large (3+) (Negative); Nitrite Urine Negative (Negative); PH 5.5 (5.0-9.0); Specific Gravity - Urine 1.025 (1.005-1.025); UMIC TRIGGER UA YES; Urine Blood Negative (Negative); Urine Ketones Negative (Negative); Urine Protein 300 (3+) mg/dL (Neg-Trace)
[2023-08-07 13:25] LABS: MANUAL DIFF FLAG NO
[2023-08-07 13:29] LABS: Basophils Absolute Auto 0.1 X10*3/uL (0.0-0.2); Basophils Percent Auto 0.5 % (0-2); Eosinophils Absolute Auto 0.2 X10*3/uL (0.0-0.4); Eosinophils Percent Auto 2.1 % (0-4); Hematocrit 37.3 % (37.0-47.0); Hemoglobin 12.3 g/dl (12.0-16.0); Imm Gran Abs Auto 0.06 X10*3/uL (0.00-0.03); Imm Gran Pct Auto 0.6 % (0.0-0.4); Lymphocytes Absolute Auto 1.8 X10*3/uL (1.2-4.9); Lymphocytes Percent Auto 16.9 % (20-40); Mean Corpuscular Hemoglobin 28.9 pg (27.0-33.0); Mean Corpuscular Volume 87.8 fL (80.0-98.0); Mean Platelet Volume 9.7 fL (9.4-12.3); Monocytes Absolute Auto 0.7 X10*3/uL (0.1-1.2); Monocytes Percent Auto 6.3 % (2-11); Neutrophils Absolute Auto 7.9 x10*3/uL (2.0-8.3); Neutrophils Percent Auto 73.6 % (45-73); Platelet Count 530 X10*3/uL (160-400); Red Blood Count 4.25 X10*6/uL (4.20-5.50); Red Cell Distribution Width 13.3 % (11.0-16.0); White Blood Count 10.7 X10*3/uL (4.8-10.8)
[2023-08-07 13:49] LABS: Anion Gap 13 (12-20); Blood Urea Nitrogen 24 mg/dL (9-16); Calcium 9.9 mg/dL (8.4-10.2); Carbon Dioxide 26 mmol/L (22-29); Chloride 106 mmol/L (96-108); Estimated Glomerular Filt Rate 35; Glucose Random 158 mg/dL (60-115); Potassium 4.5 mmol/L (3.3-5.1); Sodium 140 mmol/L (135-145)
[2023-08-07 13:56] LABS: Creatinine Urine 210.26 mg/dL
[2023-08-07 13:59] LABS: Parathyroid Hormone Intact 214.9 pg/mL (8.7-77.1)
[2023-08-07 14:01] LABS: Bacteria Urine 1+ (None Seen); Hyaline Casts Urine 0-2 /LPF (0-2); RBC Urine 0-2 /HPF (0-2)
[2023-08-07 14:18] LABS: Total Protein Urine Random 572 mg/dL (<12)
[2023-08-10 16:48] LABS: Vitamin D 25-OH, D2 <4 ng/mL; Vitamin D 25-OH, D3 32 ng/mL; Vitamin D 25-OH, Total 32 ng/mL (30-100)
== END 2023-08-07 11:11 | disposition home or self-care (01) ==
LOC: HO.10HDL 11:10
PROVIDERS: Visit Provider Internal Medicine Hypertension Specialist
DX: E11.21 Type 2 diabetes mellitus with diabetic nephropathy (principal); I10 Essential (primary) hypertension
CPT/HCPCS: 36415; 80048; 81001; 82306; 82570; 83735; 83970; 84156; 85025

== ENCOUNTER 2023-09-27 11:15 | Outpatient (REF) | payer BC, SELFPAY ==
--- NOTE | ~2023-09-27 | US_ITS ---
EXAMINATION: US THYROID CLINICAL INFORMATION: Thyroid mass. COMPARISON: Ultrasound thyroid 05/09/2013. TECHNIQUE: Linear transducer grayscale and color Doppler examination with attention to the region of the thyroid. FINDINGS: SIZE: Measurements of the thyroid lobes and nodules are given in sagittal, anteroposterior and transverse dimensions respectively. Right Thyroid Lobe: 4.3 x 1.4 x 2.1 cm, volume 6.5 mL. Parenchyma: The gland echotexture is homogeneous. Thyroid vascularity is normal. Left Thyroid Lobe: 11.5 x 4.9 x 7.8 cm, volume 231.8 mL. Parenchyma: The gland echotexture is heterogeneous. Thyroid vascularity is normal. Isthmus: 0.1 cm in maximum AP dimension. Estimated total number of nodules greater than or equal to 1 cm: 1. Local Superintendent nodules are described as follows: 1. Location: Right lower pole. Size: 0.5 x 0.3 x 0.3 cm, volume 0.03 mL. Nodule characteristics: Composition: Mixed cystic and solid (1). Echogenicity: Isoechoic (1). Shape: Not taller than wide (0). Margins: Smooth (0). Echogenic Foci: None (0). ACR TI-RADS total points: 2 ACR TI-RADS category: 2 2. Location: Right mid. Size: 0.5 x 0.4 x 0.5 cm, volume 0.05 mL. Nodule characteristics: Composition: Mixed cystic and solid (1). Echogenicity: Isoechoic (1). Shape: Not taller than wide (0). Margins: Smooth (0). Echogenic Foci: None (0). ACR TI-RADS total points: 2 ACR TI-RADS category: 2 3. Location: Right mid. Size: 0.5 x 0.5 x 0.6 cm, volume 0.07 mL. Nodule characteristics: Composition: Solid/almost completely solid (2). Echogenicity: Isoechoic (1). Shape: Not taller than wide (0). Margins: Smooth (0). Echogenic Foci: None (0). ACR TI-RADS total points: 3 ACR TI-RADS category: 3 4. Location: Left. Size: 11.5 x 4.9 x 7.8 cm, volume 231.8 mL. Nodule characteristics: Composition: Solid/almost completely solid (2). Echogenicity: Cannot be determined (1). Shape: Not taller than wide (0). Margins: Smooth (0). Echogenic Foci: None (0). ACR TI-RADS total points: 3 ACR TI-RADS category: 3 NODES: No lymphadenopathy is seen in the tissue surrounding the thyroid gland. US/US thyroid IMPRESSION: An 11.5 cm left thyroid lobe TR 3 nodule meets ACR biopsy criteria and is amenable to ultrasound guided biopsy, if clinically indicated and not already performed. ACR TI-RADS RECOMMENDATION REFERENCE: Ultrasound-guided fine-needle aspiration, followup ultrasound, no further follow up. * TR1 (0 point) and TR2 (2 points): No FNA or follow up. * TR3 (3 points): FNA if more than or equal to 2.5 cm in maximum dimension, followup ultrasound in 1, 3 and 5 years if 1.5 to 2.4 cm in maximum dimension. * TR4 (4-6 points): FNA if more than or equal to 1.5 cm in maximum dimension, followup ultrasound in 1, 2, 3 and 5 years if 1 to 1.4 cm in maximum dimension. * TR5 (more than or equal to 7 points): FNA if more than or equal to 1 cm in maximum dimension, followup ultrasound every year for 5 years if 0.5 to 0.9 cm in maximum dimension. * TR3, TR4 or TR5 nodules that are below the size threshold for followup receive no follow up. Electronically signed by: Jesus Mejia MD 10/23/2023 08:15 PM EDT
[2023-09-27 13:11] LABS: Estimated Average Glucose 154 mg/dL
[2023-09-27 13:20] LABS: Parathyroid Hormone Intact 199.2 pg/mL (8.7-77.1)
[2023-09-27 13:23] LABS: Alanine Aminotransferase 17 U/L (0-31); Albumin Level 4.1 g/dL (3.5-5.0); Alkaline Phosphatase 76 U/L (39-117); Anion Gap 13 (12-20); Aspartate Amino Transferase 18 U/L (5-31); Bilirubin Total 0.5 mg/dL (0.0-1.0); Blood Urea Nitrogen 32 mg/dL (9-16); Calcium 9.7 mg/dL (8.4-10.2); Carbon Dioxide 25 mmol/L (22-29); Chloride 105 mmol/L (96-108); Cholesterol 196 mg/dL (<200); Estimated Glomerular Filt Rate 37; Glucose Random 160 mg/dL (60-115); HDL Cholesterol 41 mg/dL (>40); LDL Cholesterol Calculated 110 mg/dL (<100); Phosphorus 3.7 mg/dL (2.7-4.5); Potassium 4.4 mmol/L (3.3-5.1); Sodium 139 mmol/L (135-145); Total Protein 8.1 g/dL (6.5-8.0); Triglycerides 225 mg/dL (<150)
[2023-09-27 13:40] LABS: Free T4 (Free Thyroxine) 0.95 ng/dL (0.71-1.85)
[2023-09-27 13:59] LABS: Appearance Urine Clear; Color Urine Yellow; Glucose Urine UA 100 mg/dL (Negative); Leukocyte Esterase Urine Moderate (2+) (Negative); Nitrite Urine Negative (Negative); PH 5.5 (5.0-9.0); Specific Gravity - Urine 1.015 (1.005-1.025); UMIC TRIGGER UA YES; Urine Blood Negative (Negative); Urine Ketones Negative (Negative); Urine Protein 300 (3+) mg/dL (Neg-Trace)
[2023-09-27 14:10] LABS: Bacteria Urine Trace (None Seen); Hyaline Casts Urine 0-2 /LPF (0-2); RBC Urine 0-2 /HPF (0-2); Squamous Epithelial Cell Urine 0-2 /HPF (0-2); WBC Urine >50 /HPF (0-5)
[2023-09-27 14:34] LABS: Creatinine Urine 76.43 mg/dL
[2023-09-27 14:39] LABS: Microalbum/Creatinine Ratio Ur 2298.8 ug/mg cr (<30)
[2023-09-28 08:48] LABS: Triiodothyronine T3 Free 3.3 pg/mL (2.3-4.2)
== END 2023-09-27 11:16 | disposition home or self-care (01) ==
LOC: HO.US 11:15
PROVIDERS: Internal Medicine Hypertension Specialist; PCP Internal Medicine; Visit Provider Internal Medicine
DX: D34 Benign neoplasm of thyroid gland (principal); I12.9 Hypertensive chronic kidney disease with stage 1 through stage 4 chronic kidney disease, or unspecified chronic kidney disease; E11.22 Type 2 diabetes mellitus with diabetic chronic kidney disease; N18.9 Chronic kidney disease, unspecified; E21.2 Other hyperparathyroidism; E55.9 Vitamin D deficiency, unspecified
CPT/HCPCS: 36415; 76536; 80053; 80061; 81001; 82043; 82570; 83036; 83970; 84100; 84439; 84443; 84481

== ENCOUNTER → 2023-10-19 09:57 | Outpatient (REF) | payer BC, SELFPAY ==
--- NOTE | ~2023-10-19 | NM_ITS ---
EXAMINATION: NM THYROID UPTAKE AND SCAN CLINICAL INFORMATION: Thyroid mass. COMPARISON: Thyroid ultrasound on 09/27/2023. TECHNIQUE: Following the oral administration of 284 microcuries of I-123 sodium iodide, thyroid uptake was performed and expressed as a percentage of the administrated dose. Gamma scintillation camera images of the thyroid in the anterior and right and left anterior oblique views were obtained using a pinhole collimator following the administration of 10 mCi Tc-99m pertechnetate. The radiotracer was injected through right antecubital superficial vein without complications. FINDINGS: The uptake is 3.3% at 3 hours and 17.6% at 24 hours (Normal radioiodine uptake at 4 to 6 hours is about 5-15% and at 24 hours is 10% to 30%). The radioiodine uptake is within normal limits. The radiopertechnetate thyroid scintigram demonstrates the thyroid gland is normal in position. The right lobe of the thyroid gland appears normal in size and shape. The left lobe of the gland is asymmetrically markedly enlarged, concordant with prior ultrasound study dated 09/27/2023. There is heterogenous radiotracer distribution present throughout the entire gland with subtle focal subcentimeter area of warm nodule at the superior medial aspect of the left lobe. The trapping function appears normal. The I-123 images shows relative ill-defined photopenia at the mid to inferior pole of the abnormal enlarged left lobe of the gland consistent with a discordant nodule in this region. NM/NM thyroid w uptake IMPRESSION: 1. The radioiodine uptake is within normal limits. 2. Morphologically abnormal thyroid gland showing disproportionately enlarged heterogenous left lobe associated with a large ill-defined discordant nodule at mid to inferior pole of the left lobe. Ultrasound-guided biopsy of this nodule is recommended for histopathologic correlation. 3. Incidental note is also made of a subcentimeter warm nodule at superior medial aspect of the left lobe of the gland. Electronically signed by: Kevin Morales MD 10/21/2023 12:21 PM EDT
== END ==
LOC: HO.NUCMED 09:57
PROVIDERS: PCP Internal Medicine; Visit Provider Internal Medicine
DX: D34 Benign neoplasm of thyroid gland (principal)
CPT/HCPCS: 78014; A9512; A9516

== ENCOUNTER 2023-11-23 12:49 | Outpatient (REF) | payer BC, SELFPAY ==
--- NOTE | ~2023-11-23 | US_ITS ---
Ultrasound-guided thyroid nodule fine needle aspiration Indication: Left lobe thyroid mass Procedure: Informed consent was obtained from the patient prior to the procedure. During this process, the procedure and potential alternatives were explained, along with the intended outcome and benefits. The risks of the procedure, as well as the risks of not doing the procedure, were discussed. The patient was given the opportunity to ask questions regarding the procedure and appeared competent to make medical decisions. A signed consent form which documents this discussion was placed in the medical record. A timeout was performed in the room. The patient was placed in a supine position with the neck extended. The left side of the neck and chest was prepped and draped in routine sterile fashion. 1% lidocaine was used as anesthetic. Under real-time ultrasound guidance, a 25-gauge needle was placed into the large left thyroid mass and an aspiration was performed. A total of 4 aspirations were performed. The specimens were placed in CytoLyt and and the Affirma bottle. Postprocedure images showed no hematoma. A Band-Aid was applied to the access site. The patient tolerated the procedure well with no immediate complications. Permanent ultrasound images were archived to the procedure. US/US guided fine needle asp Impression: Left thyroid nodule fine-needle aspiration This procedure was performed by Peter Monsivais PA-C, and directly supervised by Dr. Salmon Electronically signed by: Zohaib Bryant MD 12/11/2023 02:33 PM EDT
[2023-11-23] MEDS: Lidocaine HCl 1 % MPF 5 ML VIAL SUBCUT (14:20)
== END 2023-11-23 12:50 | disposition home or self-care (01) ==
LOC: HO.US 12:49
PROVIDERS: PCP Internal Medicine; Visit Provider Internal Medicine
DX: D34 Benign neoplasm of thyroid gland (principal)
CPT/HCPCS: 10005; 88173; 88305; J2003

== ENCOUNTER → 2023-11-23 12:51 | Outpatient (BNV) | payer BC, SELFPAY | PROVIDERS: PCP Internal Medicine; Visit Provider Physician Assistant Surgical | DX: D34 Benign neoplasm of thyroid gland (principal) | CPT/HCPCS: 10005 ==

== ENCOUNTER 2023-11-28 12:04 | Inpatient (IN) | payer BC, SELFPAY ==
--- NOTE | ~2023-11-28 | XR_ITS ---
EXAMINATION: XR FEMUR, LEFT CLINICAL INFORMATION: Fall. COMPARISON: CT right hip 08/22/2017. TECHNIQUE: AP and lateral views of the left femur were obtained. FINDINGS: Displaced and impacted left femoral neck fracture. No additional fractures. Moderate degenerative osteoarthritis of the left hip and left knee. Scattered vascular calcifications. XR/XR femur LT 2V IMPRESSION: Displaced and impacted left femoral neck fracture. Electronically signed by: Jacqueline Garcia MD 11/28/2023 03:19 PM EDT
--- NOTE | ~2023-11-28 | XR_ITS ---
EXAMINATION: XR CHEST CLINICAL INFORMATION: Hypoxemia COMPARISON: Prior chest radiograph, most recently 11/28/2023 TECHNIQUE: Frontal view of the chest was obtained. FINDINGS: Lung volumes are diminished with resulting crowding of bronchovascular structures. There are no definite airspace opacities. There may be very mild interstitial edema. Otherwise no significant abnormality is noted involving the heart, lungs, mediastinum, bony thorax or soft tissues. XR/XR chest 1V IMPRESSION: Low lung volume study with possible mild interstitial edema. Electronically signed by: Ayad Allen MD 12/01/2023 12:55 PM EDT
--- NOTE | ~2023-11-28 | XR_ITS ---
EXAMINATION: XR PELVIS CLINICAL INFORMATION: Fall. COMPARISON: Radiograph right hip 08/22/2017. TECHNIQUE: AP view of the pelvis. FINDINGS: Acute displaced and mildly impacted left femoral neck fracture. The femoral heads remain well-seated in their respective acetabula. Moderate degenerative osteoarthritis in both hips. Pelvic rim and pubic symphysis are maintained. Pelvic phleboliths. Vascular calcifications. XR/XR pelvis 1-2V IMPRESSION: Acute displaced and mildly impacted left femoral neck fracture. Electronically signed by: Jacqueline Garcia MD 11/28/2023 03:18 PM EDT
--- NOTE | ~2023-11-28 | CT_ITS ---
EXAMINATION: CT HEAD WITHOUT CONTRAST CT CERVICAL SPINE WITHOUT CONTRAST CLINICAL INFORMATION: Fall. COMPARISON: July 24, 2023 CT head and cervical spine TECHNIQUE: Imaging was performed from the skull base to vertex without intravenous administration of contrast. In addition, helical noncontrast CT imaging was acquired through the cervical spine and source images were reviewed along with axial reconstructions and sagittal and coronal MPRs. [This CT examination was performed using dose optimization techniques as appropriate, variously including the following: *Automated exposure control *Adjustment of mA and/or kV according to patient size (this includes techniques or standardized protocols for targeted exams where dose is matched to indication/reason for exam; i.e. extremities or head) *Use of iterative reconstruction technique] DLP: 989 mGy-cm FINDINGS: HEAD: No intracranial mass, hemorrhage, or midline shift is visualized. There is generalized global volume loss. There is moderate prominence of the ventricles and the sulci . There is moderate hypodensity of the periventricular white matter due to chronic small vessel ischemic disease. There are vascular calcifications of the internal carotid arteries bilaterally. No extra-axial collections are identified. Moderate volume of lateral mucosal thickening inferior right maxillary sinus. CERVICAL SPINE: There is no evidence of acute cervical spine fracture. Vertebral bodies remain normal in height. Cervical vertebrae have normal alignment. Cervical disc heights are normal. Facet joints are normal. Patient is a known left thyroid mass which has been biopsied on November 23, 2023. See prior studies for further detail. CT/CT cervical spine wo IV con IMPRESSION: 1. No acute intracranial pathology. 2. No CT evidence of acute cervical spine fracture or traumatic subluxation Electronically signed by: Brant Hobbs MD 11/28/2023 03:39 PM EDT
--- NOTE | ~2023-11-28 | XR_ITS ---
EXAMINATION: XR CHEST CLINICAL INFORMATION: Fall. COMPARISON: Chest radiograph 08/03/2021. TECHNIQUE: Frontal view of the chest was obtained. FINDINGS: Stable prominence of the cardiomediastinal silhouette. No focal consolidation, pleural effusion or pneumothorax. No displaced osseous fractures. XR/XR chest 1V IMPRESSION: 1. No acute cardiopulmonary findings. 2. No displaced osseous fractures. Electronically signed by: Jacqueline Garcia MD 11/28/2023 03:16 PM EDT
--- NOTE | ~2023-11-28 | CT_ITS ---
EXAMINATION: CT HEAD WITHOUT CONTRAST CT CERVICAL SPINE WITHOUT CONTRAST CLINICAL INFORMATION: Fall. COMPARISON: July 24, 2023 CT head and cervical spine TECHNIQUE: Imaging was performed from the skull base to vertex without intravenous administration of contrast. In addition, helical noncontrast CT imaging was acquired through the cervical spine and source images were reviewed along with axial reconstructions and sagittal and coronal MPRs. [This CT examination was performed using dose optimization techniques as appropriate, variously including the following: *Automated exposure control *Adjustment of mA and/or kV according to patient size (this includes techniques or standardized protocols for targeted exams where dose is matched to indication/reason for exam; i.e. extremities or head) *Use of iterative reconstruction technique] DLP: 989 mGy-cm FINDINGS: HEAD: No intracranial mass, hemorrhage, or midline shift is visualized. There is generalized global volume loss. There is moderate prominence of the ventricles and the sulci . There is moderate hypodensity of the periventricular white matter due to chronic small vessel ischemic disease. There are vascular calcifications of the internal carotid arteries bilaterally. No extra-axial collections are identified. Moderate volume of lateral mucosal thickening inferior right maxillary sinus. CERVICAL SPINE: There is no evidence of acute cervical spine fracture. Vertebral bodies remain normal in height. Cervical vertebrae have normal alignment. Cervical disc heights are normal. Facet joints are normal. Patient is a known left thyroid mass which has been biopsied on November 23, 2023. See prior studies for further detail. CT/CT head/brain wo IV con IMPRESSION: 1. No acute intracranial pathology. 2. No CT evidence of acute cervical spine fracture or traumatic subluxation Electronically signed by: Brant Hobbs MD 11/28/2023 03:39 PM EDT
[2023-11-28 12:15] VITALS: BP 190/90; PULSE 75; O2SAT 95
[2023-11-28 12:17] VITALS: BP 192/74; PULSE 75; RESP 18; TEMP 36.6; O2SAT 95; BMI 32.6
--- NOTE | 2023-11-28 12:22 | ED.GENADULT ---
HPI - General Adult General Chief complaint: Fall Stated complaint: DIZZY W/FALL,NO THINNER,NO COLLAR PER EMS Time Seen by Provider: 11/28/23 12:21 History of Present Illness ED Provider: Dr. Umaña HPI narrative: 63 y/o F patient; PMH chronic vertigo, PAD, HTN, HLD, T2DM, CKD, hx right foot osteomyelitis; presents from home via EMS with report of sudden onset dizziness (room spinning) associated with a fall from standing. 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 She called EMS as she was not able to get up by herself and has not been ambulatory since the event. She was found to be incontinent of stool after the fall. No tongue bitting. The patient denies LOC, syncope, head trauma, neck pain, back pain, visual changes. She is not on anti-coagulation. Chart review: Patient last seen in this emergency department on 07/24/2023 for dizziness associated with a fall from standing. She had an unremarkable CT Head/Neck, basic laboratory studies, and a reassuring UA. She was discharged to home with a prescription for meclizine. Related Data Home Medications ?Medication ?Instructions ?Recorded ?Confirmed ferrous sulfate 325 mg (65 mg 325 mg PO QMONTH 08/07/23 11/28/23 iron) tablet,delayed release furosemide 20 mg tablet 20 mg PO DAILY 08/07/23 11/28/23 hydralazine 25 mg tablet 25 mg PO BID 08/07/23 11/28/23 losartan 100 mg tablet 100 mg PO DAILY 08/07/23 11/28/23 rosuvastatin 5 mg tablet 5 mg PO DAILY 08/07/23 11/28/23 sertraline 50 mg tablet 50 mg PO DAILY 08/07/23 11/28/23 betamethasone dipropionate 0.05 % 1 appl topical DAILY 11/28/23 11/28/23 topical ointment cholecalciferol (vitamin D3) 50 50 mcg PO DAILY 11/28/23 11/28/23 mcg (2,000 unit) capsule (Vitamin D3) insulin glargine 100 unit/mL (3 36 unit subcut DAILY 11/28/23 11/28/23 mL) subcutaneous pen (Lantus Solostar U-100 Insulin) insulin lispro 200 unit/mL (3 mL) 8 unit subcut TID 11/28/23 11/28/23 subcutaneous pen (Humalog KwikPen U-200 Insulin) loratadine 10 mg tablet 10 mg PO DAILY 11/28/23 11/28/23 mupirocin 2 % topical ointment 1 appl topical DAILY 11/28/23 11/28/23 Previous Rx's ?Medication ?Instructions ?Recorded flash glucose sensor (FreeStyle #2 ea 04/06/21 Amber 14 Day Sensor kit) blood sugar diagnostic (FreeStyle #100 ea 04/23/21 Lite Strips) blood-glucose meter (FreeStyle #1 ea 04/23/21 Lite Meter kit) lancets 28 gauge (FreeStyle #100 ea 04/23/21 Lancets) pen needle, diabetic 32 gauge x #150 ea 08/09/21 (BD Adela 2nd Gen Pen Needle) Allergies Allergy/AdvReac Type Severity Reaction Status Date / Time amlodipine [From Norvasc] Allergy Mild Swelling Verified 11/28/23 12:20 Penicillins Allergy Mild Rash Verified 11/28/23 12:20 erythromycin base Allergy Unknown Unknown Verified 11/28/23 12:20 clindamycin [CLINDAMYCIN] AdvReac Intermediate Diarrhea Verified 11/28/23 12:20 NephrAmine Allergy Unknown Swelling Uncoded 07/24/23 18:21 Review of Systems Review of Systems: Yes all other systems are reviewed and are negative Neurologic: Denies Abnormal speech present and Denies Sensory deficit (Neuro) PMFSH Past Medical History Attestation statement: The following information was validated with the patient. 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 Diabetes type 2, uncontrolled Foot osteomyelitis, right Surgical History Hx of cataract extraction Hx of LASIK Hx of eye surgery Hx of foot surgery Family History Family History Father COPD (chronic obstructive pulmonary disease) Diabetes Mother Heart disease Social History Social History Household Members: None Housing: House Do you presently have visiting nurse or other home services: No Alcohol intake: current Alcohol intake frequency: does not drink Patient Tobacco Use Status: Former Tobacco user Smoked in Last 30 Days: No Use of substances other than those prescribed or required for medical reasons: No Advance Directives: No Do you have a plan to hurt others: No Plan service: No Current occupational status: employed Physical Exam ED Vital Signs: Vital Signs - 24 hr 11/28/23 12:17 11/28/23 14:40 Temperature 97.8 F Pulse Rate 75 71 Respiratory Rate 18 18 Blood Pressure 192/74 H 170/55 H Pulse Oximetry 95 92 Oxygen Delivery Method Room Air Room Air BMI result Body Mass Index 32.6 Patient is afebrile and hemodynamically stable. Const General: cooperative Orientation/consciousness: patient oriented x3 HENMT Head: Yes normal to inspection and Yes atraumatic Eyes General: appearance normal, both eyes and all related structures Pupils: Equal, round and reactive pupils present EOM: EOMs intact bilaterally and No Nystagmus present Neck Neck: Yes normal visual inspection, Yes full ROM, Yes supple and No tender Chest Chest palpation & inspection: normal inspection of the chest and normal palpation of entire chest wall Resp Effort & Inspection: normal respiratory effort, able to speak in complete sentences, no cough and no respiratory distress Auscultation: clear to auscultation bilaterally Cardio Rate: regular rate Rhythm: regular rhythm Peripheral pulses: Peripheral pulses 2+ throughout GI Inspection: Yes normal to inspection, No Abdominal wall edema and No distended Palpation (GI): Soft to palpation, not firm, nontender, no guarding and not rigid Auscultation: normal bowel sounds Back/Spine/Pelvis Other: Upper back two small healing lesions Back: No back tenderness Neuro General: patient oriented x3 Cranial nerves: Yes Equal, round and reactive pupils present and No Nystagmus present Cognition (Neuro): normal cognition Speech: No Abnormal speech present Motor exam (neuro): 5/5 motor strength present throughout and Pronator motor function not present Sensory Exam: No Sensory deficit (Neuro) Coordination: [id number] test normal Extrem Other: LLE: No pelvic tenderness, tenderness to lateral proximal aspect of femur, NVI. No skin abnormalities. Course Course Course Narrative: Patient is afebrile and hemodynamically stable. Will obtain basic labs, XR Left Femur/Pelvis, and CT Head/Neck. Providing pain control with Tylenol. Labs reviewed. Mild baseline anemia. Mild CKD. XR notable for left femoral neck fx. Discussed with orthopedics. Recommend medicine admission, NPO at midnight, and obtaining a type/screen. CT Head/Neck unremarkable Likely patient's fall 2/2 to chronic vertigo, no acute neurological findings on exam. Exam otherwise atraumatic. Plan: Admit to hospitalis Condition: Stable Medications Administered Discontinued Medications Generic Name Dose Route Start Last Admin Trade Name Freq PRN Reason Stop Dose Admin Acetaminophen 975 mg 11/28/23 12:39 11/28/23 12:46 Acetaminophen 325 Mg Tablet PO 11/28/23 12:40 975 mg ONCE ONE Administration Medical Decision Making Lab Data 11/28/23 12:59 11/28/23 12:59 Labs: Lab Results 11/28/23 11/28/23 11/28/23 Range/Units 12:35 12:59 14:27 WBC 13.5 H (4.8-10.8) X10*3/uL RBC 4.12 L (4.20-5.50) X10*6/uL Hgb 11.9 L (12.0-16.0) g/dl Hct 35.9 L (37.0-47.0) % MCV 87.1 (80.0-98.0) fL MCH 28.9 (27.0-33.0) pg MCHC 33.1 (31.0-35.0) g/dl RDW 13.1 (11.0-16.0) % Plt Count 373 D (160-400) X10*3/uL MPV 9.4 (9.4-12.3) fL Immature Gran % (Auto) 1.3 H (0.0-0.4) % Neut % (Auto) 81.7 H (45-73) % Lymph % (Auto) 11.1 L (20-40) % [place] % (Auto) 4.3 (2-11) % Eos % (Auto) 1.3 (0-4) % Baso % (Auto) 0.3 (0-2) % Lymph # (Auto) 1.5 (1.2-4.9) X10*3/uL [place] # (Auto) 0.6 (0.1-1.2) X10*3/uL Eos # (Auto) 0.2 (0.0-0.4) X10*3/uL Baso # (Auto) 0.0 (0.0-0.2) X10*3/uL Abs Immat Gran (auto) 0.17 H (0.00-0.03) X10*3/uL Absolute Neuts (auto) 11.0 H (2.0-8.3) x10*3/uL Absolute Nucleated RBC 0.000 (0.0-0.012) X10*3/uL Nucleated RBC % (auto) 0.0 (0.0-0.2) /100WBC Sodium 140 (135-145) mmol/L Potassium 4.4 (3.3-5.1) mmol/L Chloride 106 (96-108) mmol/L Carbon Dioxide 26 (22-29) mmol/L Anion Gap 12 (12-20) BUN 33 H (9-16) mg/dL Creatinine 1.41 H (0.5-1.4) mg/dL Estim Creat Clear Calc 47.1 Estimated GFR 38 POC Glucose 109 (60-115) mg/dL Random Glucose 140 H (60-115) mg/dL Calcium 9.8 (8.4-10.2) mg/dL Urine Color Urine Appearance Urine pH (5.0-9.0) Ur Specific [place] (1.005-1.025) Urine Protein (Neg-Trace) mg/dL Urine Glucose (UA) (Negative) mg/dL Urine Ketones (Negative) mg/dL Urine Blood (Negative) Urine Nitrite (Negative) Ur Leukocyte Esterase (Negative) Urine RBC (0-2) /HPF Urine WBC (0-5) /HPF Ur Squamous Epith Cells (0-2) /HPF Urine Bacteria (None Seen) Hyaline Casts (0-2) /LPF Blood Type B Negative Antibody Screen NEGATIVE 11/28/23 Range/Units 14:36 WBC (4.8-10.8) X10*3/uL RBC (4.20-5.50) X10*6/uL Hgb (12.0-16.0) g/dl Hct (37.0-47.0) % MCV (80.0-98.0) fL MCH (27.0-33.0) pg MCHC (31.0-35.0) g/dl RDW (11.0-16.0) % Plt Count (160-400) X10*3/uL MPV (9.4-12.3) fL Immature Gran % (Auto) (0.0-0.4) % Neut % (Auto) (45-73) % Lymph % (Auto) (20-40) % [place] % (Auto) (2-11) % Eos % (Auto) (0-4) % Baso % (Auto) (0-2) % Lymph # (Auto) (1.2-4.9) X10*3/uL [place] # (Auto) (0.1-1.2) X10*3/uL Eos # (Auto) (0.0-0.4) X10*3/uL Baso # (Auto) (0.0-0.2) X10*3/uL Abs Immat Gran (auto) (0.00-0.03) X10*3/uL Absolute Neuts (auto) (2.0-8.3) x10*3/uL Absolute Nucleated RBC (0.0-0.012) X10*3/uL Nucleated RBC % (auto) (0.0-0.2) /100WBC Sodium (135-145) mmol/L Potassium (3.3-5.1) mmol/L Chloride (96-108) mmol/L Carbon Dioxide (22-29) mmol/L Anion Gap (12-20) BUN (9-16) mg/dL Creatinine (0.5-1.4) mg/dL Estim Creat Clear Calc Estimated GFR POC Glucose (60-115) mg/dL Random Glucose (60-115) mg/dL Calcium (8.4-10.2) mg/dL Urine Color Yellow Urine Appearance Clear Urine pH 7.0 (5.0-9.0) Ur Specific [place] 1.010 (1.005-1.025) Urine Protein 300 (3+) H (Neg-Trace) mg/dL Urine Glucose (UA) Negative (Negative) mg/dL Urine Ketones Negative (Negative) mg/dL Urine Blood Negative (Negative) Urine Nitrite Negative (Negative) Ur Leukocyte Esterase Negative (Negative) Urine RBC 0-2 (0-2) /HPF Urine WBC 0-5 (0-5) /HPF Ur Squamous Epith Cells 0-2 (0-2) /HPF Urine Bacteria None Seen (None Seen) Hyaline Casts 0-2 (0-2) /LPF Blood Type Antibody Screen Independent Interpretation I performed an independent interpretation of an: EKG Interpretation: NSR 74BPM without ischemic changes Radiology Impression Discussion of test interpretation with radiology: I have reviewed the radiologist's reading. Radiologist Impression: EXAMINATION: XR PELVIS CLINICAL INFORMATION: Fall. COMPARISON: Radiograph right hip 08/22/2017. TECHNIQUE: AP view of the pelvis. FINDINGS: Acute displaced and mildly impacted left femoral neck fracture. The femoral heads remain well-seated in their respective acetabula. Moderate degenerative osteoarthritis in both hips. Pelvic rim and pubic symphysis are maintained. Pelvic phleboliths. Vascular calcifications. XR/XR pelvis 1-2V IMPRESSION: Acute displaced and mildly impacted left femoral neck fracture. Electronically signed by: Jacqueline Garcia MD 11/28/2023 03:18 PM EDT [employer] EXAMINATION: XR CHEST CLINICAL INFORMATION: Fall. COMPARISON: Chest radiograph 08/03/2021. TECHNIQUE: Frontal view of the chest was obtained. FINDINGS: Stable prominence of the cardiomediastinal silhouette. No focal consolidation, pleural effusion or pneumothorax. No displaced osseous fractures. XR/XR chest 1V IMPRESSION: 1. No acute cardiopulmonary findings. 2. No displaced osseous fractures. Electronically signed by: Jacqueline Garcia MD 11/28/2023 03:16 PM [employer] EXAMINATION: CT HEAD WITHOUT CONTRAST CT CERVICAL SPINE WITHOUT CONTRAST CLINICAL INFORMATION: Fall. COMPARISON: July 24, 2023 CT head and cervical spine TECHNIQUE: Imaging was performed from the skull base to vertex without intravenous administration of contrast. In addition, helical noncontrast CT imaging was acquired through the cervical spine and source images were reviewed along with axial reconstructions and sagittal and coronal MPRs. [This CT examination was performed using dose optimization techniques as appropriate, variously including the following: *Automated exposure control *Adjustment of mA and/or kV according to patient size (this includes techniques or standardized protocols for targeted exams where dose is matched to indication/reason for exam; i.e. extremities or head) *Use of iterative reconstruction technique] DLP: 989 mGy-cm FINDINGS: HEAD: No intracranial mass, hemorrhage, or midline shift is visualized. There is generalized global volume loss. There is moderate prominence of the ventricles and the sulci . There is moderate hypodensity of the periventricular white matter due to chronic small vessel ischemic disease. There are vascular calcifications of the internal carotid arteries bilaterally. No extra-axial collections are identified. Moderate volume of lateral mucosal thickening inferior right maxillary sinus. CERVICAL SPINE: There is no evidence of acute cervical spine fracture. Vertebral bodies remain normal in height. Cervical vertebrae have normal alignment. Cervical disc heights are normal. Facet joints are normal. Patient is a known left thyroid mass which has been biopsied on November 23, 2023. See prior studies for further detail. CT/CT head/brain wo IV con IMPRESSION: 1. No acute intracranial pathology. 2. No CT evidence of acute cervical spine fracture or traumatic subluxation Electronically signed by: Brant Hobbs MD 11/28/2023 03:39 PM EDT RP Discharge Plan Discharge Clinical Impression: Fall, Closed fracture of left hip, Vertigo Patient Disposition: Admitted As Inpatient Print Language: Indonesian
--- NOTE | 2023-11-28 12:28 | ECG_ITS ---
Test Reason : heart screening Blood Pressure : / mmHG Vent. Rate : 074 BPM Atrial Rate : 074 BPM P-R Int : 124 ms QRS Dur : 070 ms QT Int : 384 ms P-R-T Axes : -23 000 036 degrees QTc Int : 426 ms Artifact in tracing Normal sinus rhythm Cannot rule out Anterior infarct , age undetermined Abnormal ECG When compared with ECG of 24-JUL-2023 18:23, No significant changes seen Referred By: Lisseth Umaña Electronically Signed By:ASHLEY SNYDER
[2023-11-28 12:39] LABS: Glucose, Whole Blood 109 mg/dL (60-115)
[2023-11-28] MEDS: Acetaminophen 325 MG TABLET 975 MG PO (12:46)
[2023-11-28 13:04] LABS: MANUAL DIFF FLAG NO
[2023-11-28 13:06] LABS: Basophils Percent Auto 0.3 % (0-2); Eosinophils Absolute Auto 0.2 X10*3/uL (0.0-0.4); Eosinophils Percent Auto 1.3 % (0-4); Hematocrit 35.9 % (37.0-47.0); Hemoglobin 11.9 g/dl (12.0-16.0); Imm Gran Abs Auto 0.17 X10*3/uL (0.00-0.03); Imm Gran Pct Auto 1.3 % (0.0-0.4); Lymphocytes Absolute Auto 1.5 X10*3/uL (1.2-4.9); Lymphocytes Percent Auto 11.1 % (20-40); Mean Corpuscular HGB Conc 33.1 g/dl (31.0-35.0); Mean Corpuscular Hemoglobin 28.9 pg (27.0-33.0); Mean Corpuscular Volume 87.1 fL (80.0-98.0); Mean Platelet Volume 9.4 fL (9.4-12.3); Monocytes Absolute Auto 0.6 X10*3/uL (0.1-1.2); Monocytes Percent Auto 4.3 % (2-11); Neutrophils Percent Auto 81.7 % (45-73); Platelet Count 373 X10*3/uL (160-400); Red Blood Count 4.12 X10*6/uL (4.20-5.50); Red Cell Distribution Width 13.1 % (11.0-16.0); White Blood Count 13.5 X10*3/uL (4.8-10.8)
[2023-11-28 13:19] LABS: Anion Gap 12 (12-20); Blood Urea Nitrogen 33 mg/dL (9-16); Calcium 9.8 mg/dL (8.4-10.2); Carbon Dioxide 26 mmol/L (22-29); Chloride 106 mmol/L (96-108); Creatinine Clr Calc Pharmacy 47.1; Estimated Glomerular Filt Rate 38; Glucose Random 140 mg/dL (60-115); Potassium 4.4 mmol/L (3.3-5.1); Sodium 140 mmol/L (135-145)
--- NOTE | 2023-11-28 14:26 | PHA.MEDREC ---
Addendum entered by Jerrod Cifuentes 11/28/23 14:37: reviewed Original Note: Pharmacy Consult ? Medication Reconciliation Pharmacy has completed the medication reconciliation. Spoke to patient to confirm med list. Patients states she is no longer on Vitamin B-12 1,000 mg, and Meclizine 12.5 mg. Patient confirmed Lantus is 36 units daily and Humalog KwikPen is 8 units TID. Patient states she takes Ferrous Sulfate 325 mg once a month, however she doesn't have a set day she takes it on.
[2023-11-28 14:40] VITALS: BP 170/55; PULSE 71; RESP 18; O2SAT 92
[2023-11-28 14:55] LABS: Appearance Urine Clear; Color Urine Yellow; Glucose Urine UA Negative (Negative); Leukocyte Esterase Urine Negative (Negative); Nitrite Urine Negative (Negative); UMIC TRIGGER UACC YES; Urine Blood Negative (Negative); Urine Ketones Negative (Negative); Urine Protein 300 (3+) mg/dL (Neg-Trace)
[2023-11-28 14:57] LABS: Bacteria Urine None Seen (None Seen); Hyaline Casts Urine 0-2 /LPF (0-2); RBC Urine 0-2 /HPF (0-2); Squamous Epithelial Cell Urine 0-2 /HPF (0-2); WBC Urine 0-5 /HPF (0-5)
--- NOTE | 2023-11-28 16:03 | PM.IMHP ---
History of Present Illness Date of Service: 11/28/23 Chief Complaint: left hip pain 63F PMH CKD III, DM, hld, htn, presented with fall. 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 It did have severe left hip pain. In ED found to have acute displaced and mildly impacted left femoral neck fracture. 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 Diabetes type 2, uncontrolled Foot osteomyelitis, right Family History Father COPD (chronic obstructive pulmonary disease) Diabetes Mother Heart disease Surgical History Hx of cataract extraction Hx of LASIK Hx of eye surgery Hx of foot surgery Social History Household Members: None Housing: House Do you presently have visiting nurse or other home services: No Alcohol intake: current Alcohol intake frequency: does not drink Patient Tobacco Use Status: Former Tobacco user Smoked in Last 30 Days: No Use of substances other than those prescribed or required for medical reasons: No Advance Directives: No Do you have a plan to hurt others: No Plan service: No Current occupational status: employed Meds Allergies Allergy/AdvReac Type Severity Reaction Status Date / Time amlodipine [From Norvasc] Allergy Mild Swelling Verified 11/28/23 12:20 Penicillins Allergy Mild Rash Verified 11/28/23 12:20 erythromycin base Allergy Unknown Unknown Verified 11/28/23 12:20 clindamycin [CLINDAMYCIN] AdvReac Intermediate Diarrhea Verified 11/28/23 12:20 NephrAmine Allergy Unknown Swelling Uncoded 07/24/23 18:21 Active Medications: Current Medications Furosemide (Furosemide 20 Mg Tablet) 20 mg PO DAILY [facility]; Protocol Glucose (Glucose Gel 15 Gm Gel..Gram.) 15 gm PO Q15M PRN; Protocol PRN Reason: per Hypoglycemia Standing Ord. Hydralazine HCl (Hydralazine Hcl 25 Mg Tablet) 25 mg PO BID [facility]; Protocol Dextrose (D10) 250 mls @ 750 mls/hr IV Q15M PRN; Protocol PRN Reason: per Hypoglycemia Standing Ord. Insulin Glargine (Insulin Glargine,Hum.Rec.Anlog 100 Unit/Ml 10 Ml Vial) 20 unit SUBCUT BEDTIME [facility] Insulin Human Lispro (Insulin Lispro 100 Unit/Ml 3 Ml Vial) 0 unit SUBCUT QIDACHS [facility]; Protocol Loratadine (Loratadine 10 Mg Tablet) 10 mg PO DAILY [facility] Losartan Potassium (Losartan Potassium 50 Mg Tablet) 100 mg PO DAILY [facility]; Protocol Morphine Sulfate (Morphine Sulfate 2 Mg/Ml Cartridge) 2 mg IVPUSH Q3H PRN; Protocol PRN Reason: severe pain Non-Formulary Medication (Betamethasone Dipropionate) 1 appl TOPICAL DAILY [facility] Non-Formulary Medication (Rosuvastatin) 5 mg PO DAILY [facility] Sertraline HCl (Sertraline Hcl 50 Mg Tablet) 50 mg PO DAILY [facility] Vitamin D (Cholecalciferol (Vitamin D3) 25 Mcg Tablet) 50 mcg PO DAILY [facility] Home Medications ?Medication ?Instructions ?Recorded ?Confirmed ?Last Taken ?Type ferrous sulfate 325 mg (65 mg 325 mg PO QMONTH 08/07/23 11/28/23 Unknown History iron) tablet,delayed release furosemide 20 mg tablet 20 mg PO DAILY 08/07/23 11/28/23 11/28/23 History hydralazine 25 mg tablet 25 mg PO BID 08/07/23 11/28/23 11/28/23 History losartan 100 mg tablet 100 mg PO DAILY 08/07/23 11/28/23 11/28/23 History rosuvastatin 5 mg tablet 5 mg PO DAILY 08/07/23 11/28/23 11/28/23 History sertraline 50 mg tablet 50 mg PO DAILY 08/07/23 11/28/23 11/28/23 History betamethasone dipropionate 0.05 % 1 appl topical DAILY 11/28/23 11/28/23 11/28/23 History topical ointment cholecalciferol (vitamin D3) 50 50 mcg PO DAILY 11/28/23 11/28/23 11/28/23 History mcg (2,000 unit) capsule (Vitamin D3) insulin glargine 100 unit/mL (3 36 unit subcut DAILY 11/28/23 11/28/23 11/28/23 History mL) subcutaneous pen (Lantus Solostar U-100 Insulin) insulin lispro 200 unit/mL (3 mL) 8 unit subcut TID 11/28/23 11/28/23 11/28/23 History subcutaneous pen (Humalog KwikPen U-200 Insulin) loratadine 10 mg tablet 10 mg PO DAILY 11/28/23 11/28/23 11/28/23 History mupirocin 2 % topical ointment 1 appl topical DAILY 11/28/23 11/28/23 11/28/23 History Physical Exam Vital Signs and Narrative: Vital Signs: Last Vital Signs Temp 97.8 F 11/28/23 12:17 Pulse 71 11/28/23 14:40 Resp 18 11/28/23 14:40 BP 170/55 H 11/28/23 14:40 Pulse Ox 92 11/28/23 14:40 O2 Del Method Room Air 11/28/23 14:40 BMI result Body Mass Index 32.6 General: AO X 3, no acute distress Resp: CTA bilateral, no accessory muscles used CVS: S1,S2,RRR GI: soft, non tender, non distended Neuro: motor grossly intact, alert Psych: appropriate affect, appropriate insight right foot charcot with plantar ulcer Results Labs 11/28/23 12:59 11/28/23 12:59 Labs: Laboratory Results - last 24 hr 11/28/23 11/28/23 11/28/23 12:35 12:59 14:27 MCV 87.1 MCH 28.9 MCHC 33.1 RDW 13.1 Plt Count 373 D MPV 9.4 Immature Gran % (Auto) 1.3 H Neut % (Auto) 81.7 H Lymph % (Auto) 11.1 L [place] % (Auto) 4.3 Eos % (Auto) 1.3 Baso % (Auto) 0.3 Lymph # (Auto) 1.5 [place] # (Auto) 0.6 Eos # (Auto) 0.2 Baso # (Auto) 0.0 Abs Immat Gran (auto) 0.17 H Absolute Neuts (auto) 11.0 H Absolute Nucleated RBC 0.000 Nucleated RBC % (auto) 0.0 Anion Gap 12 Estim Creat Clear Calc 47.1 Estimated GFR 38 POC Glucose 109 Random Glucose 140 H Calcium 9.8 Urine Color Urine Appearance Urine pH Ur Specific Clear Urine Protein Urine Glucose (UA) Urine Ketones Urine Blood Urine Nitrite Ur Leukocyte Esterase Urine RBC Urine WBC Ur Squamous Epith Cells Urine Bacteria Hyaline Casts Blood Type B Negative Antibody Screen NEGATIVE 11/28/23 14:36 MCV MCH MCHC RDW Plt Count MPV Immature Gran % (Auto) Neut % (Auto) Lymph % (Auto) [place] % (Auto) Eos % (Auto) Baso % (Auto) Lymph # (Auto) [place] # (Auto) Eos # (Auto) Baso # (Auto) Abs Immat Gran (auto) Absolute Neuts (auto) Absolute Nucleated RBC Nucleated RBC % (auto) Anion Gap Estim Creat Clear Calc Estimated GFR POC Glucose Random Glucose Calcium Urine Color Yellow Urine Appearance Clear Urine pH 7.0 Ur Specific Clear 1.010 Urine Protein 300 (3+) H Urine Glucose (UA) Negative Urine Ketones Negative Urine Blood Negative Urine Nitrite Negative Ur Leukocyte Esterase Negative Urine RBC 0-2 Urine WBC 0-5 Ur Squamous Epith Cells 0-2 Urine Bacteria None Seen Hyaline Casts 0-2 Blood Type Antibody Screen Imaging Radiologist's Impressions: Impressions Cervical Spine CT 11/28/23 12:36 IMPRESSION: 1. No acute intracranial pathology. 2. No CT evidence of acute cervical spine fracture or traumatic subluxation Electronically signed by: Brant Hobbs MD 11/28/2023 03:39 PM EDT RP Pelvis X-Ray 11/28/23 12:36 IMPRESSION: Acute displaced and mildly impacted left femoral neck fracture. Electronically signed by: Jacqueline Garcia MD 11/28/2023 03:18 PM EDT RP Chest X-Ray 11/28/23 12:41 IMPRESSION: 1. No acute cardiopulmonary findings. 2. No displaced osseous fractures. Electronically signed by: Jacqueline Garcia MD 11/28/2023 03:16 PM EDT RP Femur X-Ray 11/28/23 13:05 IMPRESSION: Displaced and impacted left femoral neck fracture. Electronically signed by: Jacqueline Garcia MD 11/28/2023 03:19 PM EDT RP Head CT 11/28/23 13:23 IMPRESSION: 1. No acute intracranial pathology. 2. No CT evidence of acute cervical spine fracture or traumatic subluxation Electronically signed by: Brant Hobbs MD 11/28/2023 03:39 PM EDT RP Assessment and Plan (1) Closed fracture of left hip: Status: Acute Plan 63F PMH CKD III, DM, hld, htn, presented with fall Mechanical fall complicated acute left femoral neck fracture Pain control, NPO after midnight for surgery, patient is moderate risk for moderate risk procedure benefits outweigh risks would pursue as planned Diabetes with diabetic foot ulcer Wound care Basal bolus insulin CKD 3 Stable Hyperlipidemia Continue statin 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 Continue losartan and hydralazine DVT prophylaxis-mechanical with pending surgery Full code Patient with hip fracture requiring surgery therefore expected require at least 2 midnights inpatient Quality Stroke Does the patient have a stroke diagnosis?: No VTE Prior VTE?: No VTE Risk Level:: Medical - moderate - high VTE Device Contraindication: N/A - Device Ordered VTE Drug Contraindication: Treatment Not Tolerated
--- NOTE | 2023-11-28 17:30 | P.CONOP_ITS ---
History of Present Illness HPI Consult date: 11/28/23 Chief complaint: hip fracture Narrative: 63F PMH CKD III, DM, hld, htn, presented to the ED s/p fall. 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 She was unable to get up and ambulate. Brought to ED via EMS. In ED found to have acute displaced and mildly impacted left femoral neck fracture. She states she live alone and ambulates with a cane. Of note, she does have charcot foot right side which is being treated by wound care at [place]. She also recently underwent a thyroid bx, unsure of the results. 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 Diabetes type 2, uncontrolled Foot osteomyelitis, right Family History Family History Father COPD (chronic obstructive pulmonary disease) Diabetes Mother Heart disease Surgical History Surgical History Hx of cataract extraction Hx of LASIK Hx of eye surgery Hx of foot surgery Social History Social History Household Members: None Housing: House Do you presently have visiting nurse or other home services: No Alcohol intake: current Alcohol intake frequency: does not drink Patient Tobacco Use Status: Former Tobacco user Smoked in Last 30 Days: No Use of substances other than those prescribed or required for medical reasons: No Advance Directives: No Do you have a plan to hurt others: No Plan service: No Current occupational status: employed Meds Allergies Allergy/AdvReac Type Severity Reaction Status Date / Time amlodipine [From Norvasc] Allergy Mild Swelling Verified 11/28/23 12:20 Penicillins Allergy Mild Rash Verified 11/28/23 12:20 erythromycin base Allergy Unknown Unknown Verified 11/28/23 12:20 clindamycin [CLINDAMYCIN] AdvReac Intermediate Diarrhea Verified 11/28/23 12:20 NephrAmine Allergy Unknown Swelling Uncoded 07/24/23 18:21 Active Medications: Current Medications Acetaminophen (Acetaminophen 325 Mg Tablet) 650 mg PO Q6H PRN PRN Reason: Pain, Mild (Pain Scale 1-3), fever or headache Atorvastatin Calcium (Atorvastatin Calcium 20 Mg Tablet) 20 mg PO DAILY [facility] Betamethasone Dipropion Augmented (Betamethasone Dip Aug 0.05% Cr 15 Gm Tube) 1 appl TOPICAL DAILY [facility] Calcium Carbonate (Calcium Carbonate 750 Mg Tab.Chew) 750 mg PO Q4H PRN PRN Reason: Heartburn Furosemide (Furosemide 20 Mg Tablet) 20 mg PO DAILY [facility]; Protocol Glucose (Glucose Gel 15 Gm Gel..Gram.) 15 gm PO Q15M PRN; Protocol PRN Reason: per Hypoglycemia Standing Ord. Hydralazine HCl (Hydralazine Hcl 25 Mg Tablet) 25 mg PO BID [facility]; Protocol Dextrose (D10) 250 mls @ 750 mls/hr IV Q15M PRN; Protocol PRN Reason: per Hypoglycemia Standing Ord. Insulin Glargine (Insulin Glargine,Hum.Rec.Anlog 100 Unit/Ml 10 Ml Vial) 20 unit SUBCUT BEDTIME [facility] Insulin Human Lispro (Insulin Lispro 100 Unit/Ml 3 Ml Vial) 0 unit SUBCUT QIDACHS [facility]; Protocol Loratadine (Loratadine 10 Mg Tablet) 10 mg PO DAILY [facility] Losartan Potassium (Losartan Potassium 50 Mg Tablet) 100 mg PO DAILY [facility]; Protocol Magnesium Hydroxide (Milk Of Magnesia 30 Ml Oral.Susp) 30 ml PO DAILY PRN PRN Reason: Constipation Melatonin (Melatonin 3 Mg Tablet) 6 mg PO BEDTIME PRN PRN Reason: Insomnia Morphine Sulfate (Morphine Sulfate 2 Mg/Ml Cartridge) 2 mg IVPUSH Q3H PRN; Protocol PRN Reason: severe pain Sertraline HCl (Sertraline Hcl 50 Mg Tablet) 50 mg PO DAILY [facility] Sodium Chloride (0.9 % Sodium Chloride Flush 3 Ml Syringe) 3 ml IVFLUSH QSHIFT [facility] Vitamin D (Cholecalciferol (Vitamin D3) 25 Mcg Tablet) 50 mcg PO DAILY [facility] Home Medications ?Medication ?Instructions ?Recorded ?Confirmed ?Last Taken ?Type ferrous sulfate 325 mg (65 mg 325 mg PO QMONTH 08/07/23 11/28/23 Unknown History iron) tablet,delayed release furosemide 20 mg tablet 20 mg PO DAILY 08/07/23 11/28/23 11/28/23 History hydralazine 25 mg tablet 25 mg PO BID 08/07/23 11/28/23 11/28/23 History losartan 100 mg tablet 100 mg PO DAILY 08/07/23 11/28/23 11/28/23 History rosuvastatin 5 mg tablet 5 mg PO DAILY 08/07/23 11/28/23 11/28/23 History sertraline 50 mg tablet 50 mg PO DAILY 08/07/23 11/28/23 11/28/23 History betamethasone dipropionate 0.05 % 1 appl topical DAILY 11/28/23 11/28/23 11/28/23 History topical ointment cholecalciferol (vitamin D3) 50 50 mcg PO DAILY 11/28/23 11/28/23 11/28/23 History mcg (2,000 unit) capsule (Vitamin D3) insulin glargine 100 unit/mL (3 36 unit subcut DAILY 11/28/23 11/28/23 11/28/23 History mL) subcutaneous pen (Lantus Solostar U-100 Insulin) insulin lispro 200 unit/mL (3 mL) 8 unit subcut TID 11/28/23 11/28/23 11/28/23 History subcutaneous pen (Humalog KwikPen U-200 Insulin) loratadine 10 mg tablet 10 mg PO DAILY 11/28/23 11/28/23 11/28/23 History mupirocin 2 % topical ointment 1 appl topical DAILY 11/28/23 11/28/23 11/28/23 History Physical Exam 2 Vital Signs: Vital Signs: Last Vital Signs Temp 97.8 F 11/28/23 12:17 Pulse 71 11/28/23 14:40 Resp 18 11/28/23 14:40 BP 170/55 H 11/28/23 14:40 Pulse Ox 92 11/28/23 14:40 O2 Del Method Room Air 11/28/23 14:40 BMI result Body Mass Index 32.6 Const: General: cooperative, healthy appearing, comfortable, no acute distress, well developed and alert Orientation/consciousness: patient oriented x3 HEENT: Head: Yes normal to inspection, Yes normocephalic and Yes atraumatic Eyes: General: appearance normal, both eyes and all related structures Neck: Neck: Yes normal visual inspection and Yes no lymphadenopathy Resp: Effort & Inspection: normal respiratory effort and able to speak in complete sentences Cardio: Rate: regular rate Peripheral pulses: Peripheral pulses 2+ throughout GI: Inspection: Yes normal to inspection Palpation (GI): Soft to palpation Skin: General skin exam: no rashes or lesions noted Neuro: General: patient oriented x3 Extrem: Other: Left leg skin intact, no open wounds. leg is shortened and ER. NVI Right foot has bandage around foot due to chronic wound Psych: Appearance: grossly normal Mental Status: mental status grossly normal Results Labs 11/28/23 12:59 11/28/23 12:59 Labs: Abnormal lab results 11/28/23 11/28/23 Range/Units 12:59 14:36 WBC 13.5 H (4.8-10.8) X10*3/uL RBC 4.12 L (4.20-5.50) X10*6/uL Hgb 11.9 L (12.0-16.0) g/dl Hct 35.9 L (37.0-47.0) % Immature Gran % (Auto) 1.3 H (0.0-0.4) % Neut % (Auto) 81.7 H (45-73) % Lymph % (Auto) 11.1 L (20-40) % Abs Immat Gran (auto) 0.17 H (0.00-0.03) X10*3/uL Absolute Neuts (auto) 11.0 H (2.0-8.3) x10*3/uL BUN 33 H (9-16) mg/dL Creatinine 1.41 H (0.5-1.4) mg/dL Random Glucose 140 H (60-115) mg/dL Urine Protein 300 (3+) H (Neg-Trace) mg/dL H & H 11/28/23 Range/Units 12:59 Hgb 11.9 L (12.0-16.0) g/dl Hct 35.9 L (37.0-47.0) % All other labs normal. Assessment and Plan (1) Closed fracture of left hip: Status: Acute (2) Diabetes type 2, uncontrolled: Status: Acute Plan I discussed the case with Dr Cortez and explained the extent of the injury to the patient and her son and options available which include surgical intervention. I explained the procedure in detail along with the length of recovery and rehab course. I explained the risk, benefits and alternatives. Risk including, but not limited to infection, blood clots, bleeding, non union or malunion and nerve/tissue damage to surrounding areas along with decline in overall health. I also explained with the h/o uncontrolled diabetes this can increase her risk of infection and complications with wound healing. I answered all their questions and with their understanding they have consented to move forward with Operative Fixation of the left hip . The patient will be T&S, med clearance obtained and NPO after midnight. Procedures Date of Service Date of Service: 11/28/23
[2023-11-28 17:43] VITALS: PULSE 74; RESP 18; TEMP 36.7; O2SAT 94
[2023-11-28 18:00] LABS: Glucose, Whole Blood 196 mg/dL (60-115)
[2023-11-28] MEDS: Morphine Sulfate 2 MG/ML CARTRIDGE IVPUSH ×2 (18:12→21:21)
[2023-11-28] MEDS: Insulin Lispro 100 UNIT/ML 3 ML VIAL SUBCUT ×2 (18:12→21:00)
[2023-11-28 18:16] VITALS: BP 177/75; PULSE 72
--- NOTE | 2023-11-28 18:19 | PC.NURSE ---
BP elevated 177/75 pulse 72,medicated patient for pain with morphine ,will administer Hydralazine scheduled earlier,Dr. Solorio notified
[2023-11-28] MEDS: hydrALAZINE HCl 25 MG TABLET PO (18:24)
[2023-11-28] MEDS: Acetaminophen 325 MG TABLET 650 MG PO (18:52)
[2023-11-28 20:39] LABS: Glucose, Whole Blood 208 mg/dL (60-115)
[2023-11-28] MEDS: 0.9 % Sodium Chloride Flush 3 ML SYRINGE IVFLUSH (21:00)
[2023-11-28] MEDS: Insulin Glargine,Hum.rec.anlog 100 UNIT/ML 10 ML VIAL 20 UNIT SUBCUT (21:00)
[2023-11-28 23:22] VITALS: BP 154/67; PULSE 66; RESP 18; TEMP 36.8; O2SAT 93
[2023-11-29] VITALS (14 sets, daily range): BP systolic 140–190; BP diastolic 52–80; PULSE 73–93; RESP 16–21; TEMP 36.6–37.2; O2SAT 91–96
[2023-11-29] MEDS: Morphine Sulfate 2 MG/ML CARTRIDGE IVPUSH ×3 (02:26→09:48)
[2023-11-29 06:41] LABS: Hematocrit 34.3 % (37.0-47.0); Mean Corpuscular HGB Conc 32.1 g/dl (31.0-35.0); Mean Corpuscular Hemoglobin 28.4 pg (27.0-33.0); Mean Corpuscular Volume 88.4 fL (80.0-98.0); Mean Platelet Volume 9.6 fL (9.4-12.3); Platelet Count 385 X10*3/uL (160-400); Red Blood Count 3.88 X10*6/uL (4.20-5.50); Red Cell Distribution Width 13.1 % (11.0-16.0); White Blood Count 12.1 X10*3/uL (4.8-10.8)
[2023-11-29 06:54] LABS: Anion Gap 15 (12-20); Blood Urea Nitrogen 31 mg/dL (9-16); Calcium 9.1 mg/dL (8.4-10.2); Carbon Dioxide 24 mmol/L (22-29); Chloride 106 mmol/L (96-108); Creatinine Clr Calc Pharmacy 47.4; Estimated Glomerular Filt Rate 38; Glucose Fasting 133 mg/dL (60-99); Potassium 4.3 mmol/L (3.3-5.1); Sodium 141 mmol/L (135-145)
[2023-11-29 07:33] LABS: Glucose, Whole Blood 153 mg/dL (60-115)
--- NOTE | 2023-11-29 09:26 | MHC.CM.PN ---
Patient lives in a home alone. Ambulates w/ a cane PRN when in the community. 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 Active w/ [facility] for SN. Wound managed by [facility]. PCP Kristin Bellamy MD Completed HCP naming HCA's: 1) son Linden and 2) daughter Liza. DP: Pending post op PT eval. Home w/ services vs STR. STR preferences: 1) [facility], 2) [facility]. CM will continue to follow.
[2023-11-29] MEDS: Atorvastatin Calcium 20 MG TABLET PO (09:33)
[2023-11-29] MEDS: Losartan Potassium 50 MG TABLET 100 MG PO ×2 (09:33→09:38)
[2023-11-29] MEDS: 0.9 % Sodium Chloride Flush 3 ML SYRINGE IVFLUSH ×2 (09:37→17:03)
[2023-11-29] MEDS: Furosemide 20 MG TABLET PO (09:38)
[2023-11-29] MEDS: Sertraline HCL 50 MG TABLET PO (09:38)
[2023-11-29] MEDS: hydrALAZINE HCl 25 MG TABLET PO ×2 (09:39→22:06)
--- NOTE | 2023-11-29 10:43 | P.CONAN_ITS ---
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) Diabetes type 2, uncontrolled (Acute) Foot osteomyelitis, right (Acute) Past Medical History Medical History S/P angiogram of extremity (08/25/20) Diabetic foot ulcer associated with type 2 diabetes mellitus Cellulitis PAD (peripheral artery disease) Non-toxic multinodular goiter Dyslipidemia 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 Diabetic neuropathy associated with type 2 diabetes mellitus Diabetic retinopathy associated with type 2 diabetes mellitus Diabetic nephropathy associated with type 2 diabetes mellitus snf (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 insulin Diabetes type 2, uncontrolled Foot osteomyelitis, right Family History Family History Father COPD (chronic obstructive pulmonary disease) Diabetes Mother Heart disease Family history of problems with anesthesia: No Surgical History Surgical History S/P thyroid biopsy Hx of cataract extraction Hx of LASIK Hx of eye surgery Hx of foot surgery History of Problems with Anesthesia: No Social History Social History Household Members: None Housing: House Do you presently have visiting nurse or other home services: Yes Alcohol intake: current Alcohol intake frequency: does not drink Patient Tobacco Use Status: Former Tobacco user Years Smoked: 20 years Smoked in Last 30 Days: No e-Cigarette/Vaping Use: Never Used Use of substances other than those prescribed or required for medical reasons: No Currently Displaying Signs/Symptoms of Drug Intoxication Withdrawal: No Have you been hit, kicked, punched, or otherwise hurt by someone within the past year? If so, by whom?: No Do you feel safe in your current relationship?: No Current Relationship Is there a partner from a previous relationship who is making you feel unsafe now?: No Are you made to feel afraid or neglected: No [facility] Practices: [facility] Advance Directives: No Do you have a plan to hurt others: No Plan Recently lost weight without trying: No Nutrition Risks: No Nutritional Risk Patient : No : No Poor oral hygiene: No service: No Current occupational status: employed Meds Allergies Allergy/AdvReac Type Severity Reaction Status Date / Time amlodipine [From Norvasc] Allergy Mild Swelling Verified 11/28/23 12:20 Penicillins Allergy Mild Rash Verified 11/28/23 12:20 erythromycin base Allergy Unknown Unknown Verified 11/28/23 12:20 clindamycin [CLINDAMYCIN] AdvReac Intermediate Diarrhea Verified 11/28/23 12:20 NephrAmine Allergy Unknown Swelling Uncoded 07/24/23 18:21 Active Medications: Current Medications Acetaminophen (Acetaminophen 325 Mg Tablet) 650 mg PO Q6H PRN PRN Reason: Pain, Mild (Pain Scale 1-3), fever or headache Last Admin: 11/28/23 18:52 Dose: 650 mg Atorvastatin Calcium (Atorvastatin Calcium 20 Mg Tablet) 20 mg PO DAILY [facility] Last Admin: 11/29/23 09:33 Dose: 20 mg Betamethasone Dipropion Augmented (Betamethasone Dip Aug 0.05% Cr 15 Gm Tube) 1 appl TOPICAL DAILY [facility] Last Admin: 11/29/23 09:46 Dose: Not Given Calcium Carbonate (Calcium Carbonate 750 Mg Tab.Chew) 750 mg PO Q4H PRN PRN Reason: Heartburn Furosemide (Furosemide 20 Mg Tablet) 20 mg PO DAILY [facility]; Protocol Last Admin: 11/29/23 09:38 Dose: 20 mg Glucose (Glucose Gel 15 Gm Gel..Gram.) 15 gm PO Q15M PRN; Protocol PRN Reason: per Hypoglycemia Standing Ord. Hydralazine HCl (Hydralazine Hcl 25 Mg Tablet) 25 mg PO BID [facility]; Protocol Last Admin: 11/29/23 09:39 Dose: 25 mg Dextrose (D10) 250 mls @ 750 mls/hr IV Q15M PRN; Protocol PRN Reason: per Hypoglycemia Standing Ord. Cefazolin Sodium/Dextrose (Ancef) 2 gm in 50 mls @ 100 mls/hr IV PREOP ONE Stop: 11/29/23 14:29 Insulin Glargine (Insulin Glargine,Hum.Rec.Anlog 100 Unit/Ml 10 Ml Vial) 20 unit SUBCUT BEDTIME [facility] Last Admin: 11/28/23 21:00 Dose: 20 unit Insulin Human Lispro (Insulin Lispro 100 Unit/Ml 3 Ml Vial) 0 unit SUBCUT QIDACHS [facility]; Protocol Last Admin: 11/29/23 09:27 Dose: Not Given Loratadine (Loratadine 10 Mg Tablet) 10 mg PO DAILY [facility] Last Admin: 11/29/23 09:39 Dose: Not Given Losartan Potassium (Losartan Potassium 50 Mg Tablet) 100 mg PO DAILY [facility]; Protocol Last Admin: 11/29/23 09:38 Dose: 100 mg Magnesium Hydroxide (Milk Of Magnesia 30 Ml Oral.Susp) 30 ml PO DAILY PRN PRN Reason: Constipation Melatonin (Melatonin 3 Mg Tablet) 6 mg PO BEDTIME PRN PRN Reason: Insomnia Morphine Sulfate (Morphine Sulfate 2 Mg/Ml Cartridge) 2 mg IVPUSH Q3H PRN; Protocol PRN Reason: severe pain Last Admin: 11/29/23 09:48 Dose: 2 mg Sertraline HCl (Sertraline Hcl 50 Mg Tablet) 50 mg PO DAILY [facility] Last Admin: 11/29/23 09:38 Dose: 50 mg Sodium Chloride (0.9 % Sodium Chloride Flush 3 Ml Syringe) 3 ml IVFLUSH QSHIFT [facility] Last Admin: 11/29/23 09:37 Dose: 3 ml Vitamin D (Cholecalciferol (Vitamin D3) 25 Mcg Tablet) 50 mcg PO DAILY [facility] Last Admin: 11/29/23 09:39 Dose: Not Given Home Medications ?Medication ?Instructions ?Recorded ?Confirmed ?Last Taken ?Type ferrous sulfate 325 mg (65 mg 325 mg PO QMONTH 08/07/23 11/28/23 Unknown History iron) tablet,delayed release furosemide 20 mg tablet 20 mg PO DAILY 08/07/23 11/28/23 11/28/23 History hydralazine 25 mg tablet 25 mg PO BID 08/07/23 11/28/23 11/28/23 History losartan 100 mg tablet 100 mg PO DAILY 08/07/23 11/28/23 11/28/23 History rosuvastatin 5 mg tablet 5 mg PO DAILY 08/07/23 11/28/23 11/28/23 History sertraline 50 mg tablet 50 mg PO DAILY 08/07/23 11/28/23 11/28/23 History betamethasone dipropionate 0.05 % 1 appl topical DAILY 11/28/23 11/28/23 11/28/23 History topical ointment cholecalciferol (vitamin D3) 50 50 mcg PO DAILY 11/28/23 11/28/23 11/28/23 History mcg (2,000 unit) capsule (Vitamin D3) insulin glargine 100 unit/mL (3 36 unit subcut DAILY 11/28/23 11/28/23 11/28/23 History mL) subcutaneous pen (Lantus Solostar U-100 Insulin) insulin lispro 200 unit/mL (3 mL) 8 unit subcut TID 11/28/23 11/28/23 11/28/23 History subcutaneous pen (Humalog KwikPen U-200 Insulin) loratadine 10 mg tablet 10 mg PO DAILY 11/28/23 11/28/23 11/28/23 History mupirocin 2 % topical ointment 1 appl topical DAILY 11/28/23 11/28/23 11/28/23 History Exam Height,Weight and Vital Signs: Height 5 ft 6 in Weight 91.626 kg Last Vital Signs Temp 98.8 F 11/29/23 07:21 Pulse 75 11/29/23 07:21 Resp 18 11/29/23 07:21 BP 166/78 H 11/29/23 09:33 Pulse Ox 91 L 11/29/23 07:21 O2 Del Method Room Air 11/29/23 07:21 Pertinent Lab Results Pertinent Lab Results: Laboratory Tests 11/28/23 11/28/23 11/28/23 12:35 12:59 14:27 WBC 13.5 H RBC 4.12 L Hgb 11.9 L Hct 35.9 L MCV 87.1 MCH 28.9 MCHC 33.1 RDW 13.1 Plt Count 373 D MPV 9.4 Immature Gran % (Auto) 1.3 H Neut % (Auto) 81.7 H Lymph % (Auto) 11.1 L [place] % (Auto) 4.3 Eos % (Auto) 1.3 Baso % (Auto) 0.3 Lymph # (Auto) 1.5 [place] # (Auto) 0.6 Eos # (Auto) 0.2 Baso # (Auto) 0.0 Abs Immat Gran (auto) 0.17 H Absolute Neuts (auto) 11.0 H Absolute Nucleated RBC 0.000 Nucleated RBC % (auto) 0.0 Sodium 140 Potassium 4.4 Chloride 106 Carbon Dioxide 26 Anion Gap 12 BUN 33 H Creatinine 1.41 H Estim Creat Clear Calc 47.1 Estimated GFR 38 POC Glucose 109 Random Glucose 140 H Fasting Glucose Calcium 9.8 Urine Color Urine Appearance Urine pH Ur Specific Beauty Urine Protein Urine Glucose (UA) Urine Ketones Urine Blood Urine Nitrite Ur Leukocyte Esterase Urine RBC Urine WBC Ur Squamous Epith Cells Urine Bacteria Hyaline Casts Blood Type B Negative Antibody Screen NEGATIVE 11/28/23 11/28/23 11/28/23 14:36 17:54 20:35 WBC RBC Hgb Hct MCV MCH MCHC RDW Plt Count MPV Immature Gran % (Auto) Neut % (Auto) Lymph % (Auto) [place] % (Auto) Eos % (Auto) Baso % (Auto) Lymph # (Auto) [place] # (Auto) Eos # (Auto) Baso # (Auto) Abs Immat Gran (auto) Absolute Neuts (auto) Absolute Nucleated RBC Nucleated RBC % (auto) Sodium Potassium Chloride Carbon Dioxide Anion Gap BUN Creatinine Estim Creat Clear Calc Estimated GFR POC Glucose 196 H 208 H Random Glucose Fasting Glucose Calcium Urine Color Yellow Urine Appearance Clear Urine pH 7.0 Ur Specific Beauty 1.010 Urine Protein 300 (3+) H Urine Glucose (UA) Negative Urine Ketones Negative Urine Blood Negative Urine Nitrite Negative Ur Leukocyte Esterase Negative Urine RBC 0-2 Urine WBC 0-5 Ur Squamous Epith Cells 0-2 Urine Bacteria None Seen Hyaline Casts 0-2 Blood Type Antibody Screen 11/29/23 11/29/23 05:45 07:21 WBC 12.1 H RBC 3.88 L Hgb 11.0 L Hct 34.3 L MCV 88.4 MCH 28.4 MCHC 32.1 RDW 13.1 Plt Count 385 MPV 9.6 Immature Gran % (Auto) Neut % (Auto) Lymph % (Auto) [place] % (Auto) Eos % (Auto) Baso % (Auto) Lymph # (Auto) [place] # (Auto) Eos # (Auto) Baso # (Auto) Abs Immat Gran (auto) Absolute Neuts (auto) Absolute Nucleated RBC 0.000 Nucleated RBC % (auto) 0.0 Sodium 141 Potassium 4.3 Chloride 106 Carbon Dioxide 24 Anion Gap 15 BUN 31 H Creatinine 1.40 Estim Creat Clear Calc 47.4 Estimated GFR 38 POC Glucose 153 H Random Glucose Fasting Glucose 133 H Calcium 9.1 D Urine Color Urine Appearance Urine pH Ur Specific Beauty Urine Protein Urine Glucose (UA) Urine Ketones Urine Blood Urine Nitrite Ur Leukocyte Esterase Urine RBC Urine WBC Ur Squamous Epith Cells Urine Bacteria Hyaline Casts Blood Type Antibody Screen Airway Mallampati Class: II TM Dist: >3cm Neck ROM: Full Heart: RRR Lungs: CTA Assessment and Plan Assessment Anesthesia Assessment: Anesthesia Plan Discussed Final Anesthetic Review Family History of Problems with Anesthesia: No History of Problems with Anesthesia: No NPO: Yes ASA Class: III Final Preanesthetic Review: No Changes in Pt Med Stat, Meds/Allgs Chart Reviewed, Consent Obtained/Reviewed and Anes Risks/Benef Reviewed Patient Risk: Intermediate Procedure Risk: Intermediate Anesthetic Plan Anesthetic Plan: GA Disposition: Standard PACU
[2023-11-29 11:22] LABS: Glucose, Whole Blood 151 mg/dL (60-115)
--- NOTE | 2023-11-29 11:46 | P.PNIM_ITS ---
Subjective Subjective Date of Service: 11/29/23 Interval History: seen and evaluated this mrjuan reports mild pain in left hip seems mildly confused about her hospital stay no other overnight events Review of Systems Review of Systems: Yes all other systems are reviewed and are negative Physical Exam 2 Vital Signs: Vital Signs: Last Vital Signs Temp 98.8 F 11/29/23 07:21 Pulse 75 11/29/23 07:21 Resp 18 11/29/23 07:21 BP 166/78 H 11/29/23 09:33 Pulse Ox 94 11/29/23 10:44 O2 Del Method Room Air 11/29/23 10:44 BMI result Body Mass Index 32.6 Const: Other: Constitutional : Awake, interactive, not in distress Neck : Normal inspection, Supple Cardiovascular : RRR, no JVP, no lower extremity edema Respiratory : good bilateral air entry, no crackles, wheezes or rhonchi Gastrointestinal: soft, lax, Normal bowel sounds, Non tender Skin : Warm, Dry Extremities: Left leg shorter and externally rotated Neurological : Alert & oriented to self and place, No focal deficit , CN 2-12 within normal Objective Data Active Medications Acetaminophen (Acetaminophen 325 Mg Tablet) 650 mg PO Q6H PRN PRN Reason: Pain, Mild (Pain Scale 1-3), fever or headache Last Admin: 11/28/23 18:52 Dose: 650 mg Documented By: FAISAL Atorvastatin Calcium (Atorvastatin Calcium 20 Mg Tablet) 20 mg PO DAILY [facility] Last Admin: 11/29/23 09:33 Dose: 20 mg Documented By: FAISAL Betamethasone Dipropion Augmented (Betamethasone Dip Aug 0.05% Cr 15 Gm Tube) 1 appl TOPICAL DAILY [facility] Last Admin: 11/29/23 09:46 Dose: Not Given Documented By: FAISAL Non-Admin Reason: not available pharmacy notified Calcium Carbonate (Calcium Carbonate 750 Mg Tab.Chew) 750 mg PO Q4H PRN PRN Reason: Heartburn Furosemide (Furosemide 20 Mg Tablet) 20 mg PO DAILY [facility]; Protocol Last Admin: 11/29/23 09:38 Dose: 20 mg Documented By: FAISAL Glucose (Glucose Gel 15 Gm Gel..Gram.) 15 gm PO Q15M PRN; Protocol PRN Reason: per Hypoglycemia Standing Ord. Hydralazine HCl (Hydralazine Hcl 25 Mg Tablet) 25 mg PO BID [facility]; Protocol Last Admin: 11/29/23 09:39 Dose: 25 mg Documented By: FAISAL Hydromorphone HCl (Hydromorphone Hcl 0.5 Mg/0.5 Ml Syringe) 0.25 mg IVPUSH Q5M PRN PRN Reason: Pain, Moderate to Severe (Pain Scale 4-10) Stop: 11/29/23 16:44 Dextrose (D10) 250 mls @ 750 mls/hr IV Q15M PRN; Protocol PRN Reason: per Hypoglycemia Standing Ord. Cefazolin Sodium/Dextrose (Ancef) 2 gm in 50 mls @ 100 mls/hr IV PREOP ONE Stop: 11/29/23 14:29 Insulin Glargine (Insulin Glargine,Hum.Rec.Anlog 100 Unit/Ml 10 Ml Vial) 20 unit SUBCUT BEDTIME [facility] Last Admin: 11/28/23 21:00 Dose: 20 unit Documented By: MARISSA Insulin Human Lispro (Insulin Lispro 100 Unit/Ml 3 Ml Vial) 0 unit SUBCUT QIDACHS [facility]; Protocol Last Admin: 11/29/23 11:21 Dose: Not Given Documented By: FAISAL Non-Admin Reason: No Insulin Coverage Loratadine (Loratadine 10 Mg Tablet) 10 mg PO DAILY [facility] Last Admin: 11/29/23 09:39 Dose: Not Given Documented By: FAISAL Non-Admin Reason: NPO Losartan Potassium (Losartan Potassium 50 Mg Tablet) 100 mg PO DAILY [facility]; Protocol Last Admin: 11/29/23 09:38 Dose: 100 mg Documented By: FAISAL Magnesium Hydroxide (Milk Of Magnesia 30 Ml Oral.Susp) 30 ml PO DAILY PRN PRN Reason: Constipation Melatonin (Melatonin 3 Mg Tablet) 6 mg PO BEDTIME PRN PRN Reason: Insomnia Morphine Sulfate (Morphine Sulfate 2 Mg/Ml Cartridge) 2 mg IVPUSH Q3H PRN; Protocol PRN Reason: severe pain Last Admin: 11/29/23 09:48 Dose: 2 mg Documented By: FAISAL Naloxone HCl (Naloxone Hcl 0.4 Mg/Ml Vial) 0.04 mg IVPUSH Q5M PRN PRN Reason: Excessive sedation or RR < 8 Ondansetron HCl (Ondansetron Hcl 4 Mg/2 Ml Vial) 4 mg IVPUSH ONCE PRN PRN Reason: Nausea and Vomiting Stop: 11/29/23 16:44 Sertraline HCl (Sertraline Hcl 50 Mg Tablet) 50 mg PO DAILY [facility] Last Admin: 11/29/23 09:38 Dose: 50 mg Documented By: FAISAL Sodium Chloride (0.9 % Sodium Chloride Flush 3 Ml Syringe) 3 ml IVFLUSH QSHIFT [facility] Last Admin: 11/29/23 09:37 Dose: 3 ml Documented By: FAISAL Vitamin D (Cholecalciferol (Vitamin D3) 25 Mcg Tablet) 50 mcg PO DAILY [facility] Last Admin: 11/29/23 09:39 Dose: Not Given Documented By: FAISAL Non-Admin Reason: NPO Labs 11/29/23 05:45 11/29/23 05:45 Labs: Laboratory Results - last 24 hr 11/28/23 11/28/23 11/28/23 12:35 12:59 14:27 MCV 87.1 MCH 28.9 MCHC 33.1 RDW 13.1 Plt Count 373 D MPV 9.4 Immature Gran % (Auto) 1.3 H Neut % (Auto) 81.7 H Lymph % (Auto) 11.1 L [place] % (Auto) 4.3 Eos % (Auto) 1.3 Baso % (Auto) 0.3 Lymph # (Auto) 1.5 [place] # (Auto) 0.6 Eos # (Auto) 0.2 Baso # (Auto) 0.0 Abs Immat Gran (auto) 0.17 H Absolute Neuts (auto) 11.0 H Absolute Nucleated RBC 0.000 Nucleated RBC % (auto) 0.0 Anion Gap 12 Estim Creat Clear Calc 47.1 Estimated GFR 38 POC Glucose 109 Random Glucose 140 H Fasting Glucose Calcium 9.8 Urine Color Urine Appearance Urine pH Ur Specific [place] Urine Protein Urine Glucose (UA) Urine Ketones Urine Blood Urine Nitrite Ur Leukocyte Esterase Urine RBC Urine WBC Ur Squamous Epith Cells Urine Bacteria Hyaline Casts Blood Type B Negative Antibody Screen NEGATIVE 11/28/23 11/28/23 11/28/23 14:36 17:54 20:35 MCV MCH MCHC RDW Plt Count MPV Immature Gran % (Auto) Neut % (Auto) Lymph % (Auto) [place] % (Auto) Eos % (Auto) Baso % (Auto) Lymph # (Auto) [place] # (Auto) Eos # (Auto) Baso # (Auto) Abs Immat Gran (auto) Absolute Neuts (auto) Absolute Nucleated RBC Nucleated RBC % (auto) Anion Gap Estim Creat Clear Calc Estimated GFR POC Glucose 196 H 208 H Random Glucose Fasting Glucose Calcium Urine Color Yellow Urine Appearance Clear Urine pH 7.0 Ur Specific [place] 1.010 Urine Protein 300 (3+) H Urine Glucose (UA) Negative Urine Ketones Negative Urine Blood Negative Urine Nitrite Negative Ur Leukocyte Esterase Negative Urine RBC 0-2 Urine WBC 0-5 Ur Squamous Epith Cells 0-2 Urine Bacteria None Seen Hyaline Casts 0-2 Blood Type Antibody Screen 11/29/23 11/29/23 11/29/23 05:45 07:21 11:19 MCV 88.4 MCH 28.4 MCHC 32.1 RDW 13.1 Plt Count 385 MPV 9.6 Immature Gran % (Auto) Neut % (Auto) Lymph % (Auto) [place] % (Auto) Eos % (Auto) Baso % (Auto) Lymph # (Auto) [place] # (Auto) Eos # (Auto) Baso # (Auto) Abs Immat Gran (auto) Absolute Neuts (auto) Absolute Nucleated RBC 0.000 Nucleated RBC % (auto) 0.0 Anion Gap 15 Estim Creat Clear Calc 47.4 Estimated GFR 38 POC Glucose 153 H 151 H Random Glucose Fasting Glucose 133 H Calcium 9.1 D Urine Color Urine Appearance Urine pH Ur Specific [place] Urine Protein Urine Glucose (UA) Urine Ketones Urine Blood Urine Nitrite Ur Leukocyte Esterase Urine RBC Urine WBC Ur Squamous Epith Cells Urine Bacteria Hyaline Casts Blood Type Antibody Screen Assessment and Plan (1) Closed fracture of left hip: Status: Acute (2) Fall: Status: Acute Plan 63F PMH CKD III, DM, hld, htn, presented with fall Mechanical fall complicated acute left femoral neck fracture Pain control Orthopedics to do surgery today Diabetes with diabetic foot ulcer Wound care Basal bolus insulin and SSI CKD 3 Stable Hyperlipidemia Continue statin 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 Continue losartan and hydralazine DVT prophylaxis SCDs Full code The patient will need overnight hospital stay for surgical intervention Quality Stroke Does the patient have a stroke diagnosis?: No VTE Prior VTE?: No VTE Risk Level:: Medical - moderate - high VTE Device Contraindication: N/A - Device Ordered VTE Drug Contraindication: Treatment Not Tolerated
[2023-11-29 13:10] LABS: Glucose, Whole Blood 144 mg/dL (60-115)
--- NOTE | 2023-11-29 14:16 | MHC.SHP ---
Pre-Procedural Eval Section A - 24 Hr Update-Section A only Date of Service: 11/29/23 The patient is an INPATIENT: Yes Changes since office visit: No Cold of Flu in the past 2 weeks, No New Medical Problems, No Changes in Medication and No Patient answered all questions The patient has been examined within 24 hours of the surgical procedure. The History & Physical has been completed within 30 days and I have reviewed it.: Yes Section B - Complete if H&P > 30 days Chief Complaint: hip fracture Allergies: Allergies Allergy/AdvReac Type Severity Reaction Status Date / Time amlodipine [From Norvasc] Allergy Mild Swelling Verified 11/28/23 12:20 Penicillins Allergy Mild Rash Verified 11/28/23 12:20 erythromycin base Allergy Unknown Unknown Verified 11/28/23 12:20 clindamycin [CLINDAMYCIN] AdvReac Intermediate Diarrhea Verified 11/28/23 12:20 NephrAmine Allergy Unknown Swelling Uncoded 07/24/23 18:21 Plan I have reviewed the history and physical and performed a pertinent physical examination on my patient. No changes have occurred unless specified. Time Spent With Patient Time: Total time managing care of this patient today ____ minutes.
--- NOTE | 2023-11-29 15:34 | PM.OP ---
Brief Operative Note Date of Service: 11/29/23 Pre-op diagnosis: Left femoral neck fracture Post-op diagnosis: same Procedure: Left hip jonathan Implants: [place] Accoladew2 #5 127 with +0 bipolar Surgeon: Kristian Cortez MD Anesthesia: GETA Was an Adolescent Coordinator used for this Procedure?: Yes Adolescent Coordinator: Janine Wong Estimated blood loss (mL): 200 IV fluids (mL): 1,000 Pathology: other Condition: stable Disposition: PACU
[2023-11-29 17:17] LABS: Glucose, Whole Blood 215 mg/dL (60-115)
[2023-11-29] MEDS: Insulin Lispro 100 UNIT/ML 3 ML VIAL SUBCUT ×2 (17:43→22:07)
[2023-11-29] MEDS: Lactated Ringers 1,000 ML 80 ML IVCONT (17:46)
[2023-11-29 20:32] LABS: Glucose, Whole Blood 336 mg/dL (60-115)
[2023-11-29] MEDS: Calcium Carbonate 750 MG TAB.CHEW PO (22:04)
[2023-11-29] MEDS: Insulin Glargine,Hum.rec.anlog 100 UNIT/ML 10 ML VIAL 20 UNIT SUBCUT (22:07)
[2023-11-30] VITALS (9 sets, daily range): BP systolic 156–180; BP diastolic 67–79; PULSE 81–93; RESP 16–18; TEMP 36.2–37.2; O2SAT 89–97
[2023-11-30] MEDS: Morphine Sulfate 2 MG/ML CARTRIDGE IVPUSH ×2 (05:43→11:03)
[2023-11-30] MEDS: Lactated Ringers 1,000 ML 80 ML IVCONT ×2 (05:45→16:57)
[2023-11-30 06:24] LABS: Hemoglobin 10.3 g/dl (12.0-16.0); Mean Corpuscular HGB Conc 33.2 g/dl (31.0-35.0); Mean Corpuscular Hemoglobin 29.3 pg (27.0-33.0); Mean Corpuscular Volume 88.3 fL (80.0-98.0); Mean Platelet Volume 9.3 fL (9.4-12.3); Platelet Count 326 X10*3/uL (160-400); Red Blood Count 3.51 X10*6/uL (4.20-5.50); Red Cell Distribution Width 13.4 % (11.0-16.0)
[2023-11-30 06:42] LABS: Anion Gap 14 (12-20); Blood Urea Nitrogen 41 mg/dL (9-16); Carbon Dioxide 25 mmol/L (22-29); Chloride 104 mmol/L (96-108); Creatinine Clr Calc Pharmacy 36.1; Estimated Glomerular Filt Rate 28; Glucose Random 222 mg/dL (60-115); Potassium 4.6 mmol/L (3.3-5.1); Sodium 138 mmol/L (135-145)
--- NOTE | 2023-11-30 07:30 | PM.PNORT ---
Subjective Subjective Date of Service: 11/30/23 Interval history: Patient is a year-old female postop day 1 status post left hip hemiarthroplasty Patient is resting comfortably in bed this morning Reports that her pain is well-controlled this time Patient does report that it was painful when they had to roll her onto the operative side for repositioning purposes However, patient states that on the whole, her pain has improved significantly since prior to surgery No acute overnight events No other acute complaints or concerns at this time Physical Exam Vital Signs: Vital Signs: Last Vital Signs Temp 98.9 F 11/30/23 03:57 Pulse 83 11/30/23 03:57 Resp 16 11/30/23 03:57 BP 165/79 H 11/30/23 03:57 Pulse Ox 95 11/30/23 03:57 O2 Del Method Nasal Cannula 11/30/23 03:57 O2 Flow Rate 2 11/30/23 03:57 BMI result Body Mass Index 32.6 Extrem: Other: Dressing on left hip clean, dry, intact No evidence of surrounding erythema, ecchymosis No evidence of infection Patient is able to flex and extend the digits of the left foot without difficulty Compartments soft, nontender Distal sensation intact Capillary refill brisk Procedures Date of Service Date of Service: 11/30/23 Progress Note: A&P Assessment and plan (1) Closed fracture of left hip: Status: Acute Plan 1. Femoral neck fracture of left hip status post left hip hemiarthroplasty DOS 11/29/2023 Patient appears to be recovering well postoperatively Patient is educated about the typical recovery course Continue pain management Beginning anticoagulation with Lovenox 40 mg subcutaneous Q24H Dispo planning- PT/OT evaluation today to determine home discharge or rehab, ensure adequate pain management discharge Continue all recommendations per Medicine Time Spent With Patient Time: Total time managing care of this patient today ____ minutes. Quality Stroke Does the patient have a stroke diagnosis?: No VTE Prior VTE?: No VTE Risk Level:: Medical - moderate - high VTE Device Contraindication: N/A - Device Ordered VTE Drug Contraindication: Treatment Not Tolerated
[2023-11-30 07:43] LABS: Glucose, Whole Blood 229 mg/dL (60-115)
[2023-11-30] MEDS: Insulin Lispro 100 UNIT/ML 3 ML VIAL SUBCUT ×4 (08:07→20:33)
[2023-11-30] MEDS: Losartan Potassium 50 MG TABLET 100 MG PO (08:08)
[2023-11-30] MEDS: Loratadine 10 MG TABLET PO (08:08)
[2023-11-30] MEDS: Atorvastatin Calcium 20 MG TABLET PO (08:08)
[2023-11-30] MEDS: Cholecalciferol (Vitamin D3) 25 MCG TABLET 50 MCG PO (08:08)
[2023-11-30] MEDS: Furosemide 20 MG TABLET PO (08:08)
[2023-11-30] MEDS: hydrALAZINE HCl 25 MG TABLET PO ×2 (08:08→20:32)
[2023-11-30] MEDS: Sertraline HCL 50 MG TABLET PO (08:08)
[2023-11-30] MEDS: 0.9 % Sodium Chloride Flush 3 ML SYRINGE IVFLUSH ×2 (08:09→20:33)
--- NOTE | 2023-11-30 10:22 | MHC.CM.PN ---
PT rec STR. Patient is agreeable. Patient's preferred facilities do not accept BCBS. Accepted bed @ [place] pending auth. CM will continue to follow.
--- NOTE | 2023-11-30 11:10 | HO.POSTANES ---
Post Anesthesia Evaluation Post Anesthesia Evaluation Date of Service: 11/29/23 Vital Signs: Vital Signs Temp Pulse Resp BP Pulse Ox O2 Del Method O2 Flow Rate 11/30/23 08:49 90 L 11/30/23 07:35 98.0 F 81 18 180/75 H 97 Nasal Cannula 2 11/30/23 03:57 98.9 F 83 16 165/79 H 95 Nasal Cannula 2 11/29/23 23:32 98.1 F 84 18 167/77 H 92 Room Air Anesthesia: General Endotracheal-GETA Mental Status: Awake Pain Control: Satisfactory Nausea/Vomiting: None Hydration: Adequate Anesthesia-Related Issues: No Anes. Related Issues
[2023-11-30 11:30] LABS: Glucose, Whole Blood 246 mg/dL (60-115)
--- NOTE | 2023-11-30 13:01 | HO.WOUND ---
Wound Consult: Initial 63yr old?female admitted to [facility] on 11/28/23 - See progress notes and H&P for detailed history.? Wound consult placed for Chronic Right Plantar wound.? Patient agreeable to assessment and photo documentation.? Patient reports she has had the wound greater than 3 months - she reports she has [facility]NA services at home and she see outpt wound clinic for followup. She understands outpt wound clinic follow up should continue at time of discharge. Right Plantar Etiology: ?Diabetic Wound Present on Admission Measurements: 0.5cm x 0.5cm x 1.8cm Wound Bed: unable to visualize wound bed Drainage / Odor: sero sang noted - no odor noted Edges: ? unattached Joyce wound: thick dry callus noted - No Induration, Fluctuance or Warmth noted no s/s of active infection noted at this time Pain: denies - reports neuropathy Goals of Treatment: ? Durafiber packing - follow up with out pt wound clinic at time of d/c Recommendations: 1. Provide adequate and supplemental nutrition.? 2. When applicable maintain blood glucose levels per Providers order. 3. Right Plantar Foot - Cleanse and irrigate with NS, pat dry. Apply skin barrier to periwound. Lightly pack wound bed with Durfiber AG be sure to leave a wick for easy removal. Cover with foam dressing or dry gauze dressing. Change every 2-3 days. Be sure to remove patient specialty shoe when in bed. Patient shoud continue out pt wound clinic follow up at time of d/c. Recommend follow up out patient Wound Clinic at [address] [place] [id number] and to call for an appointment at time of discharge. [phone].? Re-consult wound care Nurse for wound deterioration or wound changes.
[2023-11-30] MEDS: Enoxaparin Sodium 40 MG/0.4 ML SYRINGE SUBCUT (13:55)
[2023-11-30 14:53] LABS: Glucose, Whole Blood 274 mg/dL (60-115)
--- NOTE | 2023-11-30 15:47 | P.PNIM_ITS ---
Subjective Subjective Date of Service: 11/30/23 Interval History: seen and evaluated this morning less pain in left hip no other overnight events Review of Systems Review of Systems: Yes all other systems are reviewed and are negative Physical Exam 2 Vital Signs: Vital Signs: Last Vital Signs Temp 98 F 11/30/23 15:02 Pulse 93 11/30/23 15:02 Resp 17 11/30/23 15:02 BP 160/69 H 11/30/23 15:02 Pulse Ox 94 11/30/23 15:02 O2 Del Method Room Air 11/30/23 15:02 O2 Flow Rate 2 11/30/23 07:35 Oxygen Flow Rate 2 11/30/23 10:44 BMI result Body Mass Index 32.6 Const: Other: Constitutional : Awake, interactive, not in distress Neck : Normal inspection, Supple Cardiovascular : RRR, no JVP, no lower extremity edema Respiratory : good bilateral air entry, no crackles, wheezes or rhonchi Gastrointestinal: soft, lax, Normal bowel sounds, Non tender Skin : Warm, Dry Extremities: Left leg wound covered with dressing with no erythema or drainage Neurological : Alert & oriented to self and place, No focal deficit Objective Data Active Medications Acetaminophen (Acetaminophen 325 Mg Tablet) 650 mg PO Q6H PRN PRN Reason: Pain, Mild (Pain Scale 1-3), fever or headache Last Admin: 11/28/23 18:52 Dose: 650 mg Documented By: FAISAL Atorvastatin Calcium (Atorvastatin Calcium 20 Mg Tablet) 20 mg PO DAILY [facility] Last Admin: 11/30/23 08:08 Dose: 20 mg Documented By: NELSON Betamethasone Dipropion Augmented (Betamethasone Dip Aug 0.05% Cr 15 Gm Tube) 1 appl TOPICAL DAILY [facility] Last Admin: 11/30/23 08:09 Dose: Not Given Documented By: NELSON Non-Admin Reason: Med Not Available Calcium Carbonate (Calcium Carbonate 750 Mg Tab.Chew) 750 mg PO Q4H PRN PRN Reason: Heartburn Last Admin: 11/29/23 22:04 Dose: 750 mg Documented By: BHAVIN Enoxaparin Sodium (Enoxaparin Sodium 40 Mg/0.4 Ml Syringe) 40 mg SUBCUT Q24H [facility] Last Admin: 11/30/23 13:55 Dose: 40 mg Documented By: NELSON Furosemide (Furosemide 20 Mg Tablet) 20 mg PO DAILY [facility]; Protocol Last Admin: 11/30/23 08:08 Dose: 20 mg Documented By: NELSON Glucose (Glucose Gel 15 Gm Gel..Gram.) 15 gm PO Q15M PRN; Protocol PRN Reason: per Hypoglycemia Standing Ord. Hydralazine HCl (Hydralazine Hcl 25 Mg Tablet) 25 mg PO BID [facility]; Protocol Last Admin: 11/30/23 08:08 Dose: 25 mg Documented By: NELSON Dextrose (D10) 250 mls @ 750 mls/hr IV Q15M PRN; Protocol PRN Reason: per Hypoglycemia Standing Ord. Cefazolin Sodium/Dextrose (Ancef) 2 gm in 50 mls @ 100 mls/hr IV POSTOP KAROLINA Lactated Ringer's (Lr) 1,000 mls @ 80 mls/hr IVCONT .[id number] [facility] Stop: 11/30/23 23:00 Last Admin: 11/30/23 05:45 Dose: 80 mls/hr Documented By: BHAVIN Insulin Glargine (Insulin Glargine,Hum.Rec.Anlog 100 Unit/Ml 10 Ml Vial) 20 unit SUBCUT BEDTIME [facility] Last Admin: 11/29/23 22:07 Dose: 20 unit Documented By: BHAVIN Insulin Human Lispro (Insulin Lispro 100 Unit/Ml 3 Ml Vial) 0 unit SUBCUT QIDACHS [facility]; Protocol Last Admin: 11/30/23 11:44 Dose: 4 unit Documented By: NELSON Loratadine (Loratadine 10 Mg Tablet) 10 mg PO DAILY [facility] Last Admin: 11/30/23 08:08 Dose: 10 mg Documented By: NELSON Losartan Potassium (Losartan Potassium 50 Mg Tablet) 100 mg PO DAILY [facility]; Protocol Last Admin: 11/30/23 08:08 Dose: 100 mg Documented By: NELSON Magnesium Hydroxide (Milk Of Magnesia 30 Ml Oral.Susp) 30 ml PO DAILY PRN PRN Reason: Constipation Melatonin (Melatonin 3 Mg Tablet) 6 mg PO BEDTIME PRN PRN Reason: Insomnia Morphine Sulfate (Morphine Sulfate 2 Mg/Ml Cartridge) 2 mg IVPUSH Q3H PRN; Protocol PRN Reason: severe pain Last Admin: 11/30/23 11:03 Dose: 2 mg Documented By: NELSON Sertraline HCl (Sertraline Hcl 50 Mg Tablet) 50 mg PO DAILY [facility] Last Admin: 11/30/23 08:08 Dose: 50 mg Documented By: NELSON Sodium Chloride (0.9 % Sodium Chloride Flush 3 Ml Syringe) 3 ml IVFLUSH QSHIFT [facility] Last Admin: 11/30/23 08:09 Dose: 3 ml Documented By: NELSON Vitamin D (Cholecalciferol (Vitamin D3) 25 Mcg Tablet) 50 mcg PO DAILY [facility] Last Admin: 11/30/23 08:08 Dose: 50 mcg Documented By: NELSON Labs 11/30/23 06:05 11/30/23 06:05 Labs: Laboratory Results - last 24 hr 11/29/23 11/29/23 11/30/23 17:13 20:29 06:05 MCV 88.3 MCH 29.3 MCHC 33.2 RDW 13.4 Plt Count 326 MPV 9.3 L Absolute Nucleated RBC 0.000 Nucleated RBC % (auto) 0.0 Anion Gap 14 Estim Creat Clear Calc 36.1 Estimated GFR 28 POC Glucose 215 H 336 H Random Glucose 222 H Calcium 9.0 11/30/23 11/30/23 11/30/23 07:35 11:23 14:49 MCV MCH MCHC RDW Plt Count MPV Absolute Nucleated RBC Nucleated RBC % (auto) Anion Gap Estim Creat Clear Calc Estimated GFR POC Glucose 229 H 246 H 274 H Random Glucose Calcium Assessment and Plan (1) Closed fracture of left hip: Status: Acute Plan 63F PMH CKD III, DM, hld, htn, presented with fall Mechanical fall complicated acute left femoral neck fracture POD 1 Pain control Orthopedics following Diabetes with diabetic foot ulcer Wound care Basal bolus insulin and SSI CKD 3 Stable Hyperlipidemia Continue statin 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 Continue losartan and hydralazine DVT prophylaxis Lovenix Full code The patient will need overnight hospital stay for pain control and PT pending placement Quality Stroke Does the patient have a stroke diagnosis?: No VTE Prior VTE?: No VTE Risk Level:: Medical - moderate - high VTE Device Contraindication: N/A - Device Ordered VTE Drug Contraindication: Treatment Not Tolerated
[2023-11-30 16:23] LABS: Glucose, Whole Blood 293 mg/dL (60-115)
--- NOTE | 2023-11-30 18:56 | PC.NURSE ---
valdivia catheter removed at 161. Catheter intact after removal. Due to void by 2214.
[2023-11-30 20:14] LABS: Glucose, Whole Blood 284 mg/dL (60-115)
[2023-11-30] MEDS: Insulin Glargine,Hum.rec.anlog 100 UNIT/ML 10 ML VIAL 20 UNIT SUBCUT (20:33)
--- NOTE | 2023-12-01 01:57 | PC.NURSE ---
pt bladder scanned for 240 at 2200 11/29, pt reports no urge to urinate. pt asking to few more hours to urinate. pt bladder scanned again at 0100 now showing 380. pt cont to report no urge to urinate. pt educated and re encouraged to urinate multiple times with pt finally agreeing to use commode. pt max 2 assess with pt not following orders and refusing to move legs, unable to safely stand and piv to commode. pt placed on bed [place] on and off multiple times with pt unable to urinate or have bm. pt straight cathed with output of 350ml. next d/t void at 0800. will cont to monitor
[2023-12-01 03:30] VITALS: BP 173/66; PULSE 78; RESP 18; TEMP 36.2; O2SAT 94
[2023-12-01 06:58] LABS: Hematocrit 29.8 % (37.0-47.0); Hemoglobin 9.7 g/dl (12.0-16.0); Mean Corpuscular HGB Conc 32.6 g/dl (31.0-35.0); Mean Corpuscular Hemoglobin 28.7 pg (27.0-33.0); Mean Corpuscular Volume 88.2 fL (80.0-98.0); Mean Platelet Volume 9.8 fL (9.4-12.3); Platelet Count 272 X10*3/uL (160-400); Red Blood Count 3.38 X10*6/uL (4.20-5.50); Red Cell Distribution Width 13.2 % (11.0-16.0); White Blood Count 12.6 X10*3/uL (4.8-10.8)
[2023-12-01 07:32] LABS: Anion Gap 13 (12-20); Blood Urea Nitrogen 50 mg/dL (9-16); Calcium 8.9 mg/dL (8.4-10.2); Carbon Dioxide 24 mmol/L (22-29); Chloride 102 mmol/L (96-108); Creatinine Clr Calc Pharmacy 37.7; Estimated Glomerular Filt Rate 29; Glucose Random 202 mg/dL (60-115); Potassium 4.5 mmol/L (3.3-5.1); Sodium 134 mmol/L (135-145)
[2023-12-01 07:49] VITALS: BP 166/75; PULSE 80; RESP 18; TEMP 36.7; O2SAT 93
[2023-12-01 07:53] LABS: Glucose, Whole Blood 202 mg/dL (60-115)
[2023-12-01] MEDS: Sertraline HCL 50 MG TABLET PO (08:06)
[2023-12-01] MEDS: Atorvastatin Calcium 20 MG TABLET PO (08:07)
[2023-12-01] MEDS: hydrALAZINE HCl 25 MG TABLET 75 MG PO (08:08)
[2023-12-01] MEDS: Cholecalciferol (Vitamin D3) 25 MCG TABLET 50 MCG PO (08:10)
[2023-12-01] MEDS: Loratadine 10 MG TABLET PO (08:15)
[2023-12-01] MEDS: 0.9 % Sodium Chloride Flush 3 ML SYRINGE IVFLUSH (08:18)
[2023-12-01] MEDS: Insulin Lispro 100 UNIT/ML 3 ML VIAL SUBCUT ×2 (08:18→11:49)
[2023-12-01] MEDS: Morphine Sulfate 2 MG/ML CARTRIDGE IVPUSH (08:33)
[2023-12-01 09:02] VITALS: BP 166/75; PULSE 80; O2SAT 93
--- NOTE | 2023-12-01 09:14 | P.CDIM_ITS ---
PROVIDER RESPONSE TEXT: To clarify, the appropriate diagnosis supported by the clinical indicators: Diabetes mellitus with hyperglycemia: confirmed QUERY TEXT: PHYSICIAN'S DOCUMENTATION REQUEST Date of Query: 12/01/2023 08:31 AM EDT Patient Name: Olga Kat Admit Date: 11/28/2023 Dear Jean Paul Marquez MD, A review of the medical record indicates additional documentation may be needed. Please review below and update the documentation accordingly. Clinical Indicators: LABS: POC glucose 336 H Insulin Diabetes with diabetic foot ulcer Please clarify the following regarding the Complications of Diabetes Mellitus (DM): Diabetes mellitus with hyperglycemia possible, probable, suspected, resolved etc. Other (explain) Clinically unable to determine (explain) Thank you, Maisha Hale, CCS, CDIS Use of terms such as suspected, likely, concern for, or probable (associated with a specific diagnosi s that is being evaluated, monitored, or treated as if it exists) are acceptable and can be coded in the inpatient se tting, when documented at the time of discharge. Please use your independent medical judgment in providing your response. THIS QUERY IS PART OF THE PERMANENT MEDICAL RECORD
[2023-12-01 10:00] VITALS: O2SAT 95
--- NOTE | 2023-12-01 10:14 | PM.DS ---
DS: Providers Provider Date of Service: 12/01/23 Date of admission: 11/28/23 16:02 Date of discharge: 12/01/23 Primary care physician: Kristin Bellamy MD Consults: 11/28/23 15:58 Consult to Wound Care Routine Reason for consultation: right foot dfu 11/28/23 15:59 Consult to Orthopedics Routine Consulting Provider: [facility] Reason for consultation: left hip fracture Has provider been notified: Yes DS: Diagnosis Discharge Diagnosis (1) Closed fracture of left hip: Status: Acute (2) Fall: Status: Acute (3) Uncontrolled hypertension: Status: Acute (4) Hypoxia: Status: Acute (5) Acute retention of urine: Status: Acute DS: Summary Hospital Course Hospital Course: Admission note HPI 63F PMH CKD III, DM, hld, htn, presented with fall. 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 It did have severe left hip pain. In ED found to have acute displaced and mildly impacted left femoral neck fracture. Hospital course The patient was admitted for evaluation of Mechanical fall complicated acute left femoral neck fracture as seen on XR of hip. she was evaluated by orthopedic team who did left hip hemiarthroplasty with fair response as she was able to participate with PT who recommended STR. She was started on Lovenox for DVT ppx and will continue for total of 6 weeks with a plan to follow with orthopedics in 2 weeks for wound check and any needed adjustments to her medications. will be prescribed Oxycodone as needed for pain. Her Creatinine mildly increase from baseline of 1.5 to 1.8 but plateau at that level. will need to recheck as outpatient. Diabetes with diabetic foot ulcer, tyo continue Wound care at the facility. Resume Basal bolus insulin and mealtime insulin She was noted to have hypoxia events. was unable to take deep breaths on Incentive spirometry. CXR showed .... She developed retention after removing the initial valdivia catheter. A new valdivia was placed 11/30 and will be discharged on it. to be followed at the facility for voiding trials and removal of the catheter. Discharge plan Voiding trials and removal of Valdivia catheter at facility Oxycodone as needed for pain Can use Tylenol 975 and Ibuprofen 400 mg three times a day as needed Follow with Orthopedic as outpatient Encourage Incentive spirometry repeat BMP as outpatient Time Attestation Discharge Coordination Time (in mins): 46 Quality: Safe Use of Opioids Does Pt have an Active Cancer Diagnosis on the Problem List?: No Quality: Stroke Does the patient have a stroke diagnosis?: No Physical Exam Vital Signs: Vital Signs: Last Vital Signs Temp 98.1 F 12/01/23 07:49 Pulse 80 12/01/23 09:02 Resp 18 12/01/23 07:49 BP 166/75 H 12/01/23 09:02 Pulse Ox 95 12/01/23 10:00 O2 Del Method Nasal Cannula 12/01/23 10:00 O2 Flow Rate 2 12/01/23 07:49 Oxygen Flow Rate 2 12/01/23 10:00 BMI result Body Mass Index 32.6 Const: Other: Constitutional : Awake, interactive, not in distress Neck : Normal inspection, Supple Cardiovascular : RRR, no JVP, no lower extremity edema Respiratory : good bilateral air entry, no crackles, wheezes or rhonchi Gastrointestinal: soft, lax, Normal bowel sounds, Non tender Skin : Warm, Dry Extremities: Left leg wound covered with dressing with no erythema or drainage Neurological : Alert & oriented to self and place, No focal deficit DS: Data Data Completed and Pending Completed studies during hospitalization [Text1]: Procedures Excision of Right Foot Subcutaneous Tissue and Fascia, Open Approach (08/19/20) Pending studies at discharge: Pending at discharge 11/29/23 15:23 Surgical [PTH] Routine Labs on day of discharge: Laboratory Results - last 24 hr 11/30/23 11/30/23 11/30/23 11:23 14:49 16:13 WBC RBC Hgb Hct MCV MCH MCHC RDW Plt Count MPV Absolute Nucleated RBC Nucleated RBC % (auto) Sodium Potassium Chloride Carbon Dioxide Anion Gap BUN Creatinine Estim Creat Clear Calc Estimated GFR POC Glucose 246 H 274 H 293 H Random Glucose Calcium 11/30/23 12/01/23 12/01/23 20:10 06:23 07:48 WBC 12.6 H RBC 3.38 L Hgb 9.7 L Hct 29.8 L MCV 88.2 MCH 28.7 MCHC 32.6 RDW 13.2 Plt Count 272 MPV 9.8 Absolute Nucleated RBC 0.000 Nucleated RBC % (auto) 0.0 Sodium 134 L Potassium 4.5 Chloride 102 Carbon Dioxide 24 Anion Gap 13 BUN 50 H Creatinine 1.76 H Estim Creat Clear Calc 37.7 Estimated GFR 29 POC Glucose 284 H 202 H Random Glucose 202 H Calcium 8.9 Imaging XR Hip : Radiologist's impression: ITS Impressions Cervical Spine CT 11/28/23 12:36 IMPRESSION: 1. No acute intracranial pathology. 2. No CT evidence of acute cervical spine fracture or traumatic subluxation Electronically signed by: Brant Hobbs MD 11/28/2023 03:39 PM EDT RP Pelvis X-Ray 11/28/23 12:36 IMPRESSION: Acute displaced and mildly impacted left femoral neck fracture. Electronically signed by: Jacqueline Garcia MD 11/28/2023 03:18 PM EDT RP Chest X-Ray 11/28/23 12:41 IMPRESSION: 1. No acute cardiopulmonary findings. 2. No displaced osseous fractures. Electronically signed by: Jacqueline Garcia MD 11/28/2023 03:16 PM EDT RP Femur X-Ray 11/28/23 13:05 IMPRESSION: Displaced and impacted left femoral neck fracture. Electronically signed by: Jacqueline Garcia MD 11/28/2023 03:19 PM EDT RP Head CT 11/28/23 13:23 IMPRESSION: 1. No acute intracranial pathology. 2. No CT evidence of acute cervical spine fracture or traumatic subluxation Electronically signed by: Brant Hobbs MD 11/28/2023 03:39 PM EDT RP Discharge Plan Discharge Anticipated Discharge Date/Time: 12/01/23 10:11 Patient Disposition: Xfer SNF Discharge Diagnosis: LEft hip fracture Referrals: [facility] [Outside] - 1 Day (short term rehab) Kristin Bellamy MD [Primary Care Provider] - 1 Week Discharge Medications: New enoxaparin 40 mg/0.4 mL Syringe 40 mg subcut Q24H 42 Days Qty: 16.8 0RF oxycodone 5 mg tablet 5 mg PO Q6H PRN (Reason: pain (scale score 7-10)) Qty: 30 0RF Rx Instructions: Partial Fill upon patient request. Continued (DME) FreeStyle Amber 14 Day Sensor Kit topical Q2W Qty: 2 11RF Rx Instructions: As directed (DME) pen needle, diabetic [BD Adela 2nd Gen Pen Needle] 32 gauge x 5/32 needle MISCELLANEOUS 5XD Qty: 150 6RF Rx Instructions: As directed 5 x/day ferrous sulfate 325 mg (65 mg iron) tablet,delayed release (DR/EC) 325 mg PO QMONTH mupirocin 2 % ointment 1 appl topical DAILY betamethasone dipropionate 0.05 % ointment 1 appl TOPICAL DAILY Humalog KwikPen Insulin 200 unit/mL (3 mL) insulin pen 8 unit subcut TID insulin glargine [Lantus Solostar U-100 Insulin] 100 unit/mL (3 mL) insulin pen 36 unit subcut DAILY loratadine 10 mg Tablet 10 mg PO DAILY cholecalciferol (vitamin D3) [Vitamin D3] 50 mcg (2,000 unit) Capsule 50 mcg PO DAILY (DME) blood-glucose meter [FreeStyle Lite Meter] Kit See Rx Instructions .ROUTE .MEDSUPPLY Qty: 1 0RF Rx Instructions: As directed (DME) FreeStyle Lite Strips Strip See Rx Instructions .ROUTE .MEDSUPPLY Qty: 100 11RF Rx Instructions: As directed three times a day (DME) lancets [FreeStyle Lancets] 28 gauge misc See Rx Instructions .ROUTE .MEDSUPPLY Qty: 100 11RF Rx Instructions: Three times a day rosuvastatin 5 mg tablet 5 mg PO DAILY furosemide 20 mg tablet 20 mg PO DAILY hydralazine 25 mg tablet 25 mg PO BID losartan 100 mg tablet 100 mg PO DAILY sertraline 50 mg tablet 50 mg PO DAILY Discharge Orders: Discharge Order (Routine); Ordered 12/01/23 Ordered By: Jean Paul Marquez Diet: Advance to usual diet Activity on Discharge: As tolerated Stand Alone Forms: Patient Portal Discharge page Print Language: Malay Other Ambulatory Orders: Basic Metabolic Panel (Routine) Timeframe: 3 Days Facility: [facility] - Location: Laboratory Ordered By: Jean Paul Marquez Activity Restrictions/Additional Instructions: Topical Wound Care Recommendations: 1. Provide adequate and supplemental nutrition.? 2. When applicable maintain blood glucose levels per Providers order. 3. Right Plantar Foot - Cleanse and irrigate with NS, pat dry. Apply skin barrier to periwound. Lightly pack wound bed with Durfiber AG be sure to leave a wick for easy removal. Cover with foam dressing or dry gauze dressing. Change every 2-3 days. Be sure to remove patient specialty shoe when in bed. Patient shoud continue out pt wound clinic follow up at time of d/c. Recommend follow up out patient Wound Clinic at [address] [place] [phone] and to call for an appointment at time of discharge. [phone].? Care Plan Goals: Voiding trials and removal of Valdivia catheter at facility Oxycodone as needed for pain Can use Tylenol 975 and Ibuprofen 400 mg three times a day as needed Follow with Orthopedic as outpatient Encourage Incentive spirometry repeat BMP as outpatient Health Concerns: Hip fracture Plan of Treatment: pain control PT Assessment: as above Discharge Date/Time: 12/01/23 14:40
[2023-12-01 11:32] LABS: Glucose, Whole Blood 303 mg/dL (60-115)
[2023-12-01] MEDS: guaiFENesin LA 600 MG TAB.ER.12H PO (11:49)
[2023-12-01] MEDS: Furosemide 40 MG/4 ML VIAL IVPUSH (11:49)
[2023-12-01 12:00] VITALS: BP 183/84; PULSE 83; RESP 18; TEMP 36.9; O2SAT 97
[2023-12-01 12:24] VITALS: O2SAT 96
--- NOTE | 2023-12-01 12:24 | MHC.CM.PN ---
PER MD PATIENT MEDICALLY CLEARED FOR DC TO [facility] VIA BLS AT 2PM. RN & AWARE.
--- NOTE | 2023-12-12 10:04 | W.PM.OPN ---
Operative Note Operative Note Date of Service: 11/29/23 Narrative: Date of Service: 11/29/23 Pre-op diagnosis: Left femoral neck fracture Post-op diagnosis: same Procedure: Left hip jonathan Implants: Sachin Accoladew2 #5 127 with +0 26/44 bipolar Surgeon: Kristian Cortez MD Anesthesia: GETA Was an Spray Machine Operator used for this Procedure?: Yes Spray Machine Operator: Janine Wong Estimated blood loss (mL): 200 IV fluids (mL): 1,000 Pathology: other Condition: stable Disposition: PACU Procedure in detail: Patient was brought to the operative room placed in the lateral decubitus position. All bony prominences were well padded and the was prepped and draped in standard sterile fashion. IV antibiotics per weight were administered and a time-out was called to identify proper site proper procedure proper surgeon. Radiographs were available and confirmed. I began by making a curvilinear incision over the posterolateral aspect of the greater trochanter. Dissection was taken down to the tensor fascia which was incised in line with the incision and a Charnley retractor was placed. The hip was internally rotated and the external rotators were identified. All vessels in the area were cauterized and a full-thickness capsular/external rotator layer was developed in a hockey-stick fashion starting just proximal to the piriformis. This layer was tagged and the displaced femoral neck fracture was identified. Clean-up cuts was performed while protectinng the posterolateral soft tissues and the head was removed and measured (44 mm) on the back table. I then copiously irrigated the acetabulum and removed all bony fragments. Once this was done I used a cookie cutter to lateralize and a Charnley awl to identify the canal and then sequentially broached up to a 127 deg #5. I then trialed with a standard head and a bipolar component matching the femoral head size. I was satisfied with the range of motion and stability and length. Therefore I removed all instrumentation and copiously irrigated. I then placed my final femoral implant and then retrialed. I was satisfied with the +0/44 implant. My final bipolar components were then placed. I closed the capsular layer with FiberWire and I performed a layered closure with ridge on skin. The patient was placed in sterile dressing extubated brought to recovery room in stable condition there were no known complications.
== END 2023-12-01 14:40 | disposition skilled nursing facility (03) | DRG 323 ==
LOC: HO.ED 13:39 → HO.EDOVER 16:14 → HO.S3 16:43
PROVIDERS: Orthopaedic Surgery; Admitting Provider Internal Medicine; Emergency Provider Emergency Medicine; PCP Internal Medicine; Visit Provider Student in an Organized Health Care Education/Training Program
PROC: 0SRS0JA Replacement of Left Hip Joint, Femoral Surface with Synthetic Substitute, Uncemented, Open Approach (ICD-10-PCS; CPT 27125; principal; 2023-11-29 12:30)
DX: S72.002A Fracture of unspecified part of neck of left femur, initial encounter for closed fracture (principal); E11.610 Type 2 diabetes mellitus with diabetic neuropathic arthropathy; E11.22 Type 2 diabetes mellitus with diabetic chronic kidney disease; L97.419 Non-pressure chronic ulcer of right heel and midfoot with unspecified severity; W19.XXXA Unspecified fall, initial encounter; R33.9 Retention of urine, unspecified; E11.65 Type 2 diabetes mellitus with hyperglycemia; E11.621 Type 2 diabetes mellitus with foot ulcer; Z87.891 Personal history of nicotine dependence; E78.5 Hyperlipidemia, unspecified; I12.9 Hypertensive chronic kidney disease with stage 1 through stage 4 chronic kidney disease, or unspecified chronic kidney disease; N18.30 Chronic kidney disease, stage 3 unspecified; Z79.4 Long term (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 insulin; Z79.899 Other long term (current) drug therapy
CPT/HCPCS: 36415; 70450; 71045; 72125; 72170; 73552; 80048; 81001; 82947; 85025; 85027; 86850; 86900; 86901; 88304; 88305; 88311; 93005; 97162; 97166; 97530; 99285; C1758; C1776; J0690; J1100; J1650; J1940; J2003; J2250; J2270; J2405; J2704; J2795; J3010; J7120

== ENCOUNTER → 2023-11-28 12:28 | Outpatient (BNV) | payer BC, SELFPAY | PROVIDERS: Emergency Provider Emergency Medicine; PCP Internal Medicine; Visit Provider Internal Medicine | DX: R94.31 Abnormal electrocardiogram [ECG] [EKG] (principal); R42 Dizziness and giddiness | CPT/HCPCS: 93010 ==

== ENCOUNTER → 2023-11-28 13:24 | Outpatient (BNV) | payer BC, SELFPAY | PROVIDERS: Emergency Provider Emergency Medicine; PCP Internal Medicine; Visit Provider Internal Medicine | DX: S72.002A Fracture of unspecified part of neck of left femur, initial encounter for closed fracture (principal); W19.XXXA Unspecified fall, initial encounter; I10 Essential (primary) hypertension; R09.02 Hypoxemia; R33.8 Other retention of urine | CPT/HCPCS: 99222; 99232; 99239 ==

== ENCOUNTER → 2023-11-28 16:02 | Outpatient (BNV) | payer BC, SELFPAY | PROVIDERS: Admitting Provider Internal Medicine; Emergency Provider Emergency Medicine; PCP Internal Medicine; Visit Provider Physician Assistant | DX: S72.002A Fracture of unspecified part of neck of left femur, initial encounter for closed fracture (principal) | CPT/HCPCS: 27236; 99024; 99223 ==

== ENCOUNTER 2023-12-15 10:43 | Outpatient (AMB) | payer BC, SELFPAY ==
--- NOTE | 2023-12-15 10:55 | MHC.OFFVIS ---
Intake Visit Reasons: PO: Left hip jonathan 11/29/23 NE Intake Note: Olga a 63 year old female who presents today for a post operative visit s/p left hip jonathan, DOS 11/29/23 NE. Patient reports that she is doing well, states mild ache. She has been working with PT. Allergies amlodipine [From Norvasc] Allergy (Mild, Verified 11/28/23 12:20) Swelling Penicillins Allergy (Mild, Verified 11/28/23 12:20) Rash erythromycin base Allergy (Unknown, Verified 11/28/23 12:20) Unknown clindamycin [CLINDAMYCIN] Adverse Reaction (Intermediate, Verified 11/28/23 12:20) Diarrhea NephrAmine Allergy (Unknown, Uncoded 07/24/23 18:21) Swelling Medication List - Last Reconciled 12/16/23 by Iggy Rivera PA-C betamethasone dipropionate 0.05% 1 appl topical DAILY blood sugar diagnostic (FreeStyle Lite Strips) As directed three times a day blood-glucose meter (FreeStyle Lite Meter kit) As directed cholecalciferol (vitamin D3) (Vitamin D3) 50 mcg PO DAILY enoxaparin 40 mg (0.4 mL) subcut Q24H 42 days ferrous sulfate 325 mg PO QMONTH flash glucose sensor (FreeStyle Amber 14 Day Sensor kit) As directed furosemide 20 mg PO DAILY hydralazine 25 mg PO BID insulin glargine (Lantus Solostar U-100 Insulin) 36 units subcut DAILY insulin lispro (Humalog KwikPen U-200 Insulin) 8 units subcut TID lancets (FreeStyle Lancets) Three times a day loratadine 10 mg PO DAILY losartan 100 mg PO DAILY mupirocin 2% 1 appl topical DAILY oxycodone 5 mg PO Q6H PRN pen needle, diabetic (BD Adela 2nd Gen Pen Needle) As directed 5 x/day rosuvastatin 5 mg PO DAILY sertraline 50 mg PO DAILY HPI HPI PO: Left hip jonathan 11/29/23 NE: Details: 63-year-old female who returns to the office today for post-op left hip hemiarthroplasty, 11/29/[address] Cortez. She states she has mild aches in her hip however she is doing well otherwise. She has no other concerns today. 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 Diabetes type 2, uncontrolled Foot osteomyelitis, right Surgical History S/P thyroid biopsy Hx of cataract extraction Hx of LASIK Hx of eye surgery Hx of foot surgery Family History Father COPD (chronic obstructive pulmonary disease) Diabetes Mother Heart disease Social History Household Members: None Housing: House Are you a primary care analyst to a significant other at home: No Do you presently have visiting nurse or other home services: No Alcohol intake: current Alcohol intake frequency: does not drink Patient Tobacco Use Status: Former Tobacco user Years Smoked: 20 years e-Cigarette/Vaping Use: Never Used service: No Current occupational status: employed Review of Systems Const All systems reviewed & are unremarkable except as noted in HPI and below Physical Exam Extrem Other: Left hip: Incision clean, dry and intact. No redness or drainage. NVI. Results Reviewed Results Reviewed: Xrays were obtained in the office today and personally reviewed by me of the left hip show prosthesis without signs of loosening. Assessment & Plan Assessment & Plan (1) History of left hip hemiarthroplasty: Code(s): Z96.642 - Presence of left artificial hip joint Category: Surgical Plan Ty removed, steri strips applied. She will continue PT to work on gait training, glute strength and ADLs. Continues dvt ppx x 4 more weeks. She will f/u in 4 weeks, sooner if needed. Orders: Orders XR hip LT min 2V 12/15/23 M25.552 - Pain in left hip Patient Instructions: Scribed for Ta-Stacy Rivera PA-C, by Jay Littlejohn medical detailist, on 12/15/2023 at 11:00 AM EST.? I, Iggy Rivera PA-C, have personally reviewed and agree with the information entered by the scribe. Coding Level of Care Code Global (66602) Diagnoses History of left hip hemiarthroplasty Z96.642
== END 2023-12-15 12:41 | disposition home or self-care (01) ==
LOC: HO.HOS 10:44
PROVIDERS: PCP Internal Medicine; Visit Provider Physician Assistant
DX: Z96.642 Presence of left artificial hip joint (principal)
CPT/HCPCS: 99024

== ENCOUNTER 2023-12-15 11:48 | Outpatient (REF) | payer BC, SELFPAY ==
--- NOTE | ~2023-12-15 | XR_ITS ---
EXAMINATION: XR HIP, LEFT. AP PELVIS. CLINICAL INFORMATION: Left hip pain COMPARISON: 11/28/2023 TECHNIQUE: Two views of the left hip. AP pelvis. FINDINGS: Standard postoperative appearance of the left bipolar hemiarthroplasty with the components in the usual position and alignment. No evidence of loosening or fracture. Skin ridge overlie the operative site. XR/XR hip LT min 2V IMPRESSION: Standard postoperative appearance of the left bipolar hemiarthroplasty. Electronically signed by: Jose Peck MD 12/15/2023 04:53 PM EDT
== END 2023-12-15 11:49 | disposition home or self-care (01) ==
LOC: HO.HOSX 11:48
PROVIDERS: Visit Provider Physician Assistant
DX: M25.552 Pain in left hip (principal)
CPT/HCPCS: 73502

== ENCOUNTER 2023-12-31 14:12 | Inpatient (IN) | payer BC, SELFPAY ==
--- NOTE | ~2023-12-31 | XR_ITS ---
EXAMINATION: XR FOOT, RIGHT CLINICAL INFORMATION: Foot wound; question osteomyelitis. COMPARISON: Radiographs dated 05/13/2022. TECHNIQUE: AP, lateral, and oblique views of the right foot. FINDINGS: Again, there is midfoot and hindfoot collapse with rocker-bottom deformity and chronic Lisfranc degenerative changes. No acute fracture or dislocation is seen. There is no right ankle joint effusion. There is dressing material of the plantar hindfoot, with soft tissue gas. Mild adjacent distal inferior calcaneal bone erosion is questioned. There is generalized soft tissue swelling of the foot. XR/XR foot RT 2V IMPRESSION: Lisfranc changes and a rocker bottom deformity are redemonstrated. There is a plantar hindfoot soft tissue wound, with adjacent soft tissue gas. Mild cortical erosion is questioned of the adjacent distal calcaneal undersurface. The possibility of osteomyelitis is not excluded. This could be further evaluated with MRI, if clinically indicated. Electronically signed by: Jesus Mejia MD 12/31/2023 04:17 PM [facility]
[2023-12-31 14:38] VITALS: BP 155/56; PULSE 100; RESP 19; TEMP 37.3; O2SAT 97; BMI 31.9
--- NOTE | 2023-12-31 14:39 | ED.GENADULT ---
HPI - General Adult General Chief complaint: General Medical Stated complaint: Sepsis? Time Seen by Provider: 12/31/23 15:41 Related Data Home Medications ?Medication ?Instructions ?Recorded ?Confirmed ferrous sulfate 325 mg (65 mg 325 mg PO QMONTH 08/07/23 12/31/23 iron) tablet,delayed release losartan 100 mg tablet 100 mg PO DAILY 08/07/23 12/31/23 rosuvastatin 5 mg tablet 5 mg PO DAILY 08/07/23 12/31/23 sertraline 50 mg tablet 50 mg PO DAILY 08/07/23 12/31/23 cholecalciferol (vitamin D3) 50 50 mcg PO DAILY 11/28/23 12/31/23 mcg (2,000 unit) capsule (Vitamin D3) insulin glargine 100 unit/mL (3 36 unit subcut DAILY 11/28/23 12/31/23 mL) subcutaneous pen (Lantus Solostar U-100 Insulin) loratadine 10 mg tablet 10 mg PO DAILY 11/28/23 12/31/23 insulin lispro 200 unit/mL (3 mL) 8 unit subcut TIDAC 12/31/23 12/31/23 subcutaneous pen (Humalog KwikPen U-200 Insulin) sennosides 8.6 mg tablet (senna) 8.6 mg PO DAILY PRN Constipation 12/31/23 12/31/23 Previous Rx's ?Medication ?Instructions ?Recorded flash glucose sensor (FreeStyle #2 ea 04/06/21 Amber 14 Day Sensor kit) blood sugar diagnostic (FreeStyle #100 ea 04/23/21 Lite Strips) blood-glucose meter (FreeStyle #1 ea 04/23/21 Lite Meter kit) lancets 28 gauge (FreeStyle #100 ea 04/23/21 Lancets) pen needle, diabetic 32 gauge x #150 ea 08/09/21 (BD Adela 2nd Gen Pen Needle) Allergies Allergy/AdvReac Type Severity Reaction Status Date / Time amlodipine [From Norvasc] Allergy Mild Swelling Verified 12/31/23 14:42 Penicillins Allergy Mild Rash Verified 12/31/23 14:42 erythromycin base Allergy Unknown Unknown Verified 12/31/23 14:42 enoxaparin [From Lovenox] Allergy Vomiting Verified 12/31/23 14:42 heparin Allergy Vomiting Verified 12/31/23 14:42 clindamycin [CLINDAMYCIN] AdvReac Intermediate Diarrhea Verified 12/31/23 14:42 NephrAmine Allergy Unknown Swelling Uncoded 12/31/23 14:42 PMF Past Medical History Medical History Vertigo S/P angiogram of extremity (08/25/20) Diabetic foot ulcer associated with type 2 diabetes mellitus Cellulitis PAD (peripheral artery disease) Non-toxic multinodular goiter Dyslipidemia 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 Diabetic neuropathy associated with type 2 diabetes mellitus Diabetic retinopathy associated with type 2 diabetes mellitus Diabetic nephropathy associated with type 2 diabetes mellitus intermediate (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 insulin Diabetes type 2, uncontrolled Foot osteomyelitis, right Surgical History S/P thyroid biopsy Hx of cataract extraction Hx of LASIK Hx of eye surgery Hx of foot surgery Family History Family History Father COPD (chronic obstructive pulmonary disease) Diabetes Mother Heart disease Social History Social History Household Members: None Housing: House Are you a primary neonatal critical care nurse to a significant other at home: No Do you presently have visiting nurse or other home services: No Alcohol intake: current Alcohol intake frequency: does not drink Patient Tobacco Use Status: Former Tobacco user Years Smoked: 20 years Smoked in Last 30 Days: No e-Cigarette/Vaping Use: Never Used Use of substances other than those prescribed or required for medical reasons: No Advance Directives: Yes Advance Directives on File: Yes Advance Directives Date on File: 12/04/23 Do you have a plan to hurt others: No Plan Patient : No service: No Current occupational status: employed Physical Exam ED Vital Signs: Vital Signs - 24 hr 12/31/23 14:38 12/31/23 16:28 Temperature 99.2 F 100 F Pulse Rate 100 88 Respiratory Rate 19 20 Blood Pressure 155/56 H 182/74 H Pulse Oximetry 97 91 L Oxygen Delivery Method Room Air Room Air BMI result Body Mass Index 31.9 Course Course Course Narrative: RME; 63-year-old female presents to ED for right foot wound as chronic thinks is infected. Patient is visiting nurse referred patient to the ED for evaluation. Patient states foul odor. Last x-ray ordered. Patient to be evaluated main ED Medications Administered Generic Name Dose Route Start Last Admin Trade Name Мария PRN Reason Stop Dose Admin Vancomycin HCl 2,000 mg in 500 mls @ 250 mls/hr 12/31/23 16:20 12/31/23 16:36 Vancomycin/Ns IV 12/31/23 18:19 250 mls/hr ONCE ONE Administration Discontinued Medications Generic Name Dose Route Start Last Admin Trade Name Мария PRN Reason Stop Dose Admin Cefazolin Sodium 1 gm 12/31/23 16:13 12/31/23 16:32 Cefazolin Sodium 1 Gm Vial IVPUSH 12/31/23 16:14 1 gm ONCE ONE Administration Vancomycin HCl 1,000 mg/ 270 mls @ 270 mls/hr 12/31/23 16:13 12/31/23 16:45 Sodium Chloride IV 12/31/23 17:12 Not Given ONCE ONE Medical Decision Making Lab Data 12/31/23 14:49 12/31/23 14:49 Labs: Lab Results 12/31/23 Range/Units 14:49 WBC 17.0 H (4.8-10.8) X10*3/uL RBC 3.48 L (4.20-5.50) X10*6/uL Hgb 9.8 L (12.0-16.0) g/dl Hct 30.5 L (37.0-47.0) % MCV 87.6 (80.0-98.0) fL MCH 28.2 (27.0-33.0) pg MCHC 32.1 (31.0-35.0) g/dl RDW 13.2 (11.0-16.0) % Plt Count 321 (160-400) X10*3/uL MPV 9.4 (9.4-12.3) fL Immature Gran % (Auto) 0.6 H (0.0-0.4) % Neut % (Auto) 87.2 H (45-73) % Lymph % (Auto) 4.9 L (20-40) % [place] % (Auto) 7.1 (2-11) % Eos % (Auto) 0.0 (0-4) % Baso % (Auto) 0.2 (0-2) % Lymph # (Auto) 0.8 L (1.2-4.9) X10*3/uL [place] # (Auto) 1.2 (0.1-1.2) X10*3/uL Eos # (Auto) 0.0 (0.0-0.4) X10*3/uL Baso # (Auto) 0.0 (0.0-0.2) X10*3/uL Abs Immat Gran (auto) 0.11 H (0.00-0.03) X10*3/uL Absolute Neuts (auto) 14.8 H (2.0-8.3) x10*3/uL Absolute Nucleated RBC 0.000 (0.0-0.012) X10*3/uL Nucleated RBC % (auto) 0.0 (0.0-0.2) /100WBC ESR 106 H (0-20) MM/HR Sodium 135 (135-145) mmol/L Potassium 4.3 (3.3-5.1) mmol/L Chloride 100 (96-108) mmol/L Carbon Dioxide 27 (22-29) mmol/L Anion Gap 12 (12-20) BUN 24 H (9-16) mg/dL Creatinine 1.45 H (0.5-1.4) mg/dL Estim Creat Clear Calc 43.8 Estimated GFR 37 Random Glucose 178 H (60-115) mg/dL Lactic Acid 1.5 (0.5-2.0) mmol/L Calcium 9.3 (8.4-10.2) mg/dL Total Bilirubin 0.6 (0.0-1.0) mg/dL AST 23 (5-31) U/L ALT 15 (0-31) U/L Alkaline Phosphatase 88 (39-117) U/L C-Reactive Protein 20.80 H (< or = 0.50) mg/dL Total Protein 7.8 (6.5-8.0) g/dL Albumin 3.6 (3.5-5.0) g/dL Discharge Plan Discharge Clinical Impression: Foot osteomyelitis, right Patient Disposition: Admitted As Inpatient
[2023-12-31 14:55] LABS: MANUAL DIFF FLAG NO
[2023-12-31 14:56] LABS: Basophils Percent Auto 0.2 % (0-2); Hematocrit 30.5 % (37.0-47.0); Hemoglobin 9.8 g/dl (12.0-16.0); Imm Gran Abs Auto 0.11 X10*3/uL (0.00-0.03); Imm Gran Pct Auto 0.6 % (0.0-0.4); Lymphocytes Absolute Auto 0.8 X10*3/uL (1.2-4.9); Lymphocytes Percent Auto 4.9 % (20-40); Mean Corpuscular HGB Conc 32.1 g/dl (31.0-35.0); Mean Corpuscular Hemoglobin 28.2 pg (27.0-33.0); Mean Corpuscular Volume 87.6 fL (80.0-98.0); Mean Platelet Volume 9.4 fL (9.4-12.3); Monocytes Absolute Auto 1.2 X10*3/uL (0.1-1.2); Monocytes Percent Auto 7.1 % (2-11); Neutrophils Absolute Auto 14.8 x10*3/uL (2.0-8.3); Neutrophils Percent Auto 87.2 % (45-73); Platelet Count 321 X10*3/uL (160-400); Red Blood Count 3.48 X10*6/uL (4.20-5.50); Red Cell Distribution Width 13.2 % (11.0-16.0)
[2023-12-31 15:12] LABS: Alanine Aminotransferase 15 U/L (0-31); Albumin Level 3.6 g/dL (3.5-5.0); Alkaline Phosphatase 88 U/L (39-117); Anion Gap 12 (12-20); Aspartate Amino Transferase 23 U/L (5-31); Bilirubin Total 0.6 mg/dL (0.0-1.0); Blood Urea Nitrogen 24 mg/dL (9-16); Calcium 9.3 mg/dL (8.4-10.2); Carbon Dioxide 27 mmol/L (22-29); Chloride 100 mmol/L (96-108); Creatinine Clr Calc Pharmacy 43.8; Estimated Glomerular Filt Rate 37; Glucose Random 178 mg/dL (60-115); Lactic Acid 1.5 mmol/L (0.5-2.0); Potassium 4.3 mmol/L (3.3-5.1); Sodium 135 mmol/L (135-145); Total Protein 7.8 g/dL (6.5-8.0)
[2023-12-31 15:36] LABS: Erythrocyte Sedimentation Rate 106 MM/HR (0-20)
--- NOTE | 2023-12-31 16:14 | PC.NURSE ---
Pt comes to ED today for c/o generalize feeling of unwell but suspects it is related to her recurrent wounds to the R foot. Pt reports a long hx of RLE issues: wounds, hip replacement, PT. A&Ox3 20g to RAC and second set of blood cultures obtained. Pt is calm and cooperative; family at bedside.
--- NOTE | 2023-12-31 16:17 | ED.GENADULT ---
HPI - General Adult General Chief complaint: General Medical Stated complaint: Sepsis? Time Seen by Provider: 12/31/23 15:41 History of Present Illness HPI narrative: PMH chronic vertigo, PAD, HTN, HLD, T2DM, CKD, hx right foot osteomyelitis; patient presented today with having increasing redness at the right foot puncture wound. subjective fever at home. Generalized malaise weakness. Patient denies any coughing congestion upper respiratory symptoms. No urinary symptoms. Been lost to wound care because she was in a rehab facility. Family noted increasing redness over the foot Related Data Home Medications ?Medication ?Instructions ?Recorded ?Confirmed ferrous sulfate 325 mg (65 mg 325 mg PO QMONTH 08/07/23 12/16/23 iron) tablet,delayed release furosemide 20 mg tablet 20 mg PO DAILY 08/07/23 12/16/23 hydralazine 25 mg tablet 25 mg PO BID 08/07/23 12/16/23 losartan 100 mg tablet 100 mg PO DAILY 08/07/23 12/16/23 rosuvastatin 5 mg tablet 5 mg PO DAILY 08/07/23 12/16/23 sertraline 50 mg tablet 50 mg PO DAILY 08/07/23 11/28/23 betamethasone dipropionate 0.05 % 1 appl topical DAILY 11/28/23 12/16/23 topical ointment cholecalciferol (vitamin D3) 50 50 mcg PO DAILY 11/28/23 12/16/23 mcg (2,000 unit) capsule (Vitamin D3) insulin glargine 100 unit/mL (3 36 unit subcut DAILY 11/28/23 12/16/23 mL) subcutaneous pen (Lantus Solostar U-100 Insulin) insulin lispro 200 unit/mL (3 mL) 8 unit subcut TID 11/28/23 12/16/23 subcutaneous pen (Humalog KwikPen U-200 Insulin) loratadine 10 mg tablet 10 mg PO DAILY 11/28/23 12/16/23 mupirocin 2 % topical ointment 1 appl topical DAILY 11/28/23 11/28/23 Previous Rx's ?Medication ?Instructions ?Recorded flash glucose sensor (FreeStyle #2 ea 04/06/21 Amber 14 Day Sensor kit) blood sugar diagnostic (FreeStyle #100 ea 04/23/21 Lite Strips) blood-glucose meter (FreeStyle #1 ea 04/23/21 Lite Meter kit) lancets 28 gauge (FreeStyle #100 ea 04/23/21 Lancets) pen needle, diabetic 32 gauge x #150 ea 08/09/21 (BD Adela 2nd Gen Pen Needle) enoxaparin 40 mg/0.4 mL 40 mg (0.4 mL) subcut Q24H 42 days 12/01/23 subcutaneous syringe #16.8 mL oxycodone 5 mg tablet 5 mg PO Q6H PRN pain (scale score 12/01/23 7-10) #30 tabs Allergies Allergy/AdvReac Type Severity Reaction Status Date / Time amlodipine [From Norvasc] Allergy Mild Swelling Verified 12/31/23 14:42 Penicillins Allergy Mild Rash Verified 12/31/23 14:42 erythromycin base Allergy Unknown Unknown Verified 12/31/23 14:42 enoxaparin [From Lovenox] Allergy Vomiting Verified 12/31/23 14:42 heparin Allergy Vomiting Verified 12/31/23 14:42 clindamycin [CLINDAMYCIN] AdvReac Intermediate Diarrhea Verified 12/31/23 14:42 NephrAmine Allergy Unknown Swelling Uncoded 12/31/23 14:42 Review of Systems Review of Systems: Positive subjective fever positive generalized malaise. Positive redness to the right foot especially around the heel Yes all other systems are reviewed and are negative [facility] Past Medical History Attestation statement: The following information was validated with the patient. 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 Diabetes type 2, uncontrolled Foot osteomyelitis, right Surgical History S/P thyroid biopsy Hx of cataract extraction Hx of LASIK Hx of eye surgery Hx of foot surgery Family History Family History Father COPD (chronic obstructive pulmonary disease) Diabetes Mother Heart disease Social History Social History Household Members: None Housing: House Are you a primary ambulatory care coordinator to a significant other at home: No Do you presently have visiting nurse or other home services: No Alcohol intake: current Alcohol intake frequency: does not drink Patient Tobacco Use Status: Former Tobacco user Years Smoked: 20 years Smoked in Last 30 Days: No e-Cigarette/Vaping Use: Never Used Use of substances other than those prescribed or required for medical reasons: No Advance Directives: Yes Advance Directives on File: Yes Advance Directives Date on File: 12/04/23 Do you have a plan to hurt others: No Plan Patient : No service: No Current occupational status: employed Physical Exam ED Vital Signs: Vital Signs - 24 hr 12/31/23 14:38 Temperature 99.2 F Pulse Rate 100 Respiratory Rate 19 Blood Pressure 155/56 H Pulse Oximetry 97 Oxygen Delivery Method Room Air BMI result Body Mass Index 31.9 Appearance: Alert. Oriented X3. No acute distress. Eyes: Pupils equal, round and reactive to light. ENT: Pharynx normal. Neck: Normal inspection. Neck supple. No lymph nodes noted. No crepitus CVS: Normal heart rate and rhythm. Pulses normal. Normal S1 and S2 Respiratory: No respiratory distress. Breath sounds normal. No Wheezing. No rales Abdomen: Soft and nontender. No rigidity. No distention. good BS x4 Skin: Positive redness to the right foot. Slight warmth to touch there is a blister over the hypothenar aspect of the foot distally. There is a puncture wound that appears chronic the proximal plantar surface of the foot. Tender to touch there is a foul odor coming from the wound. There is no gross purulent discharge noted. There is redness over the distal foot. There is good palpable pulses at dorsalis pedis. Extremities: No lower extremity edema. Neurovascular intact to all extremities. No Lacerations. No Rash Neuro: Oriented X 3. No motor deficit. No sensory deficit. Moving all extermities. No slurred speech Medical Decision Making Medical Decision Making MDM Narrative: Patient's previous culture review has Proteus in the wound in the past. Dueñas sensitive. Started on Ancef and vancomycin. Patient is lactate is less than 2 there is no evidence for severe sepsis. CRP and sed rate are both elevated can not rule out the possibility of osteomyelitis. Patient will likely require admission for further evaluation Differential Diagnosis Differential Diagnoses: The differential diagnosis associated with the presentation includes Cellulitis, osteomyelitis Admission/Observation Consideration of admission/observation: Escalation of care including admission/observation considered Consult Healthcare Provider Management of the patient was discussed with: Hospitalist Lab Data MDM Lab Attestation statement: I reviewed the patient's lab results. 12/31/23 14:49 12/31/23 14:49 Labs: Lab Results 12/31/23 Range/Units 14:49 WBC 17.0 H (4.8-10.8) X10*3/uL RBC 3.48 L (4.20-5.50) X10*6/uL Hgb 9.8 L (12.0-16.0) g/dl Hct 30.5 L (37.0-47.0) % MCV 87.6 (80.0-98.0) fL MCH 28.2 (27.0-33.0) pg MCHC 32.1 (31.0-35.0) g/dl RDW 13.2 (11.0-16.0) % Plt Count 321 (160-400) X10*3/uL MPV 9.4 (9.4-12.3) fL Immature Gran % (Auto) 0.6 H (0.0-0.4) % Neut % (Auto) 87.2 H (45-73) % Lymph % (Auto) 4.9 L (20-40) % [place] % (Auto) 7.1 (2-11) % Eos % (Auto) 0.0 (0-4) % Baso % (Auto) 0.2 (0-2) % Lymph # (Auto) 0.8 L (1.2-4.9) X10*3/uL [place] # (Auto) 1.2 (0.1-1.2) X10*3/uL Eos # (Auto) 0.0 (0.0-0.4) X10*3/uL Baso # (Auto) 0.0 (0.0-0.2) X10*3/uL Abs Immat Gran (auto) 0.11 H (0.00-0.03) X10*3/uL Absolute Neuts (auto) 14.8 H (2.0-8.3) x10*3/uL Absolute Nucleated RBC 0.000 (0.0-0.012) X10*3/uL Nucleated RBC % (auto) 0.0 (0.0-0.2) /100WBC ESR 106 H (0-20) MM/HR Sodium 135 (135-145) mmol/L Potassium 4.3 (3.3-5.1) mmol/L Chloride 100 (96-108) mmol/L Carbon Dioxide 27 (22-29) mmol/L Anion Gap 12 (12-20) BUN 24 H (9-16) mg/dL Creatinine 1.45 H (0.5-1.4) mg/dL Estim Creat Clear Calc 43.8 Estimated GFR 37 Random Glucose 178 H (60-115) mg/dL Lactic Acid 1.5 (0.5-2.0) mmol/L Calcium 9.3 (8.4-10.2) mg/dL Total Bilirubin 0.6 (0.0-1.0) mg/dL AST 23 (5-31) U/L ALT 15 (0-31) U/L Alkaline Phosphatase 88 (39-117) U/L C-Reactive Protein 20.80 H (< or = 0.50) mg/dL Total Protein 7.8 (6.5-8.0) g/dL Albumin 3.6 (3.5-5.0) g/dL Independent Interpretation I performed an independent interpretation of an: Plain X-Ray Radiology Impression Discussion of test interpretation with radiology: I have reviewed the radiologist's reading. Independent Historian Family External Record Review External record reviewed: Inpatient record Chronic Conditions Patient?s care impacted by: Diabetes and 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 Discharge Plan Discharge Clinical Impression: Foot osteomyelitis, right Patient Disposition: Admitted As Inpatient Prescriptions: No Action (DME) FreeStyle Amber 14 Day Sensor Kit topical Q2W Qty: 2 11RF Rx Instructions: As directed (DME) pen needle, diabetic [BD Adela 2nd Gen Pen Needle] 32 gauge x 5/32 needle MISCELLANEOUS 5XD Qty: 150 6RF Rx Instructions: As directed 5 x/day ferrous sulfate 325 mg (65 mg iron) tablet,delayed release (DR/EC) 325 mg PO QMONTH mupirocin 2 % ointment 1 appl topical DAILY betamethasone dipropionate 0.05 % ointment 1 appl TOPICAL DAILY Humalog KwikPen Insulin 200 unit/mL (3 mL) insulin pen 8 unit subcut TID insulin glargine [Lantus Solostar U-100 Insulin] 100 unit/mL (3 mL) insulin pen 36 unit subcut DAILY loratadine 10 mg Tablet 10 mg PO DAILY cholecalciferol (vitamin D3) [Vitamin D3] 50 mcg (2,000 unit) Capsule 50 mcg PO DAILY enoxaparin 40 mg/0.4 mL Syringe 40 mg subcut Q24H 42 Days Qty: 16.8 0RF oxycodone 5 mg tablet 5 mg PO Q6H PRN (Reason: pain (scale score 7-10)) Qty: 30 0RF Rx Instructions: Partial Fill upon patient request. (DME) blood-glucose meter [FreeStyle Lite Meter] Kit See Rx Instructions .ROUTE .MEDSUPPLY Qty: 1 0RF Rx Instructions: As directed (DME) FreeStyle Lite Strips Strip See Rx Instructions .ROUTE .MEDSUPPLY Qty: 100 11RF Rx Instructions: As directed three times a day (DME) lancets [FreeStyle Lancets] 28 gauge misc See Rx Instructions .ROUTE .MEDSUPPLY Qty: 100 11RF Rx Instructions: Three times a day rosuvastatin 5 mg tablet 5 mg PO DAILY furosemide 20 mg tablet 20 mg PO DAILY hydralazine 25 mg tablet 25 mg PO BID losartan 100 mg tablet 100 mg PO DAILY sertraline 50 mg tablet 50 mg PO DAILY Print Language: [place] Citizen
[2023-12-31 16:28] VITALS: BP 182/74; PULSE 88; RESP 20; TEMP 37.7; O2SAT 91
[2023-12-31] MEDS: ceFAZolin Sodium 1 GM VIAL IVPUSH (16:32)
[2023-12-31] MEDS: vancomycin/NS 2,000 MG/500 ML PLAST..BAG 250 MG IV (16:36)
--- NOTE | 2023-12-31 17:12 | P.HPHOSP_ITS ---
History of Present Illness Date of Service: 12/31/23 Chief Complaint: Right foot redness/chronic wound with foul drainage 63-year-old female with past medical history of chronic kidney disease stage 3, diabetes mellitus, hyperlipidemia, hypertension recently discharged from [facility] on November 30 after receiving treatment for left femoral neck fracture patient was subsequently discharged to rehab facility and was sent home from rehab on December 18, she is being followed by [facility] on Wednesdays and Fridays, was unable to get an outpatient appointment with wound clinic but since yesterday started feeling feverish, vomited this morning, noticed to have cramping pain in right foot with worsening redness and foul odor therefore came to emergency room for evaluation in the ED noted to have a elevated WBC count of 17,000, chronically elevated ESR and CRP was noted x-ray of foot showed soft tissue wound on plantar surface with adjacent soft tissue gas, mild cortical erosion of the adjacent distal calcaneus under surface raising possibility of osteomyelitis, MRI recommended for further evaluation, will admit patient for right foot osteomyelitis with surrounding cellulitis and possible abscess, received IV vancomycin and IV Ancef in the ED will obtain surgical consultation. Review of Systems 2 Review of Systems: General no headache no dizziness , subjective fevers. CVS no chest pain, no palpitation. Respiratory no cough, no sob. Gastrointestinal vomiting, no abdominal pain, no diarrhea. no frequency, no urgency All other symptoms reviewed and are negative [facility] Medical History Vertigo S/P angiogram of extremity (08/25/20) Diabetic foot ulcer associated with type 2 diabetes mellitus Cellulitis PAD (peripheral artery disease) Non-toxic multinodular goiter Dyslipidemia 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 Diabetic neuropathy associated with type 2 diabetes mellitus Diabetic retinopathy associated with type 2 diabetes mellitus Diabetic nephropathy associated with type 2 diabetes mellitus residential (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 insulin Diabetes type 2, uncontrolled Foot osteomyelitis, right Family History Father COPD (chronic obstructive pulmonary disease) Diabetes Mother Heart disease Surgical History S/P thyroid biopsy Hx of cataract extraction Hx of LASIK Hx of eye surgery Hx of foot surgery Social History Household Members: None Housing: House Are you a primary critical care clinical nurse specialist to a significant other at home: No Do you presently have visiting nurse or other home services: No Alcohol intake: current Alcohol intake frequency: does not drink Patient Tobacco Use Status: Former Tobacco user Years Smoked: 20 years Smoked in Last 30 Days: No e-Cigarette/Vaping Use: Never Used Use of substances other than those prescribed or required for medical reasons: No Advance Directives: Yes Advance Directives on File: Yes Advance Directives Date on File: 12/04/23 Do you have a plan to hurt others: No Plan Patient : No service: No Current occupational status: employed Meds Allergies Allergy/AdvReac Type Severity Reaction Status Date / Time amlodipine [From Norvasc] Allergy Mild Swelling Verified 12/31/23 14:42 Penicillins Allergy Mild Rash Verified 12/31/23 14:42 erythromycin base Allergy Unknown Unknown Verified 12/31/23 14:42 enoxaparin [From Lovenox] Allergy Vomiting Verified 12/31/23 14:42 heparin Allergy Vomiting Verified 12/31/23 14:42 clindamycin [CLINDAMYCIN] AdvReac Intermediate Diarrhea Verified 12/31/23 14:42 NephrAmine Allergy Unknown Swelling Uncoded 12/31/23 14:42 Active Medications: Current Medications Acetaminophen (Acetaminophen 325 Mg Tablet) 650 mg PO Q6H PRN PRN Reason: Pain, Mild (Pain Scale 1-3), fever or headache Calcium Carbonate (Calcium Carbonate 750 Mg Tab.Chew) 750 mg PO Q4H PRN PRN Reason: Heartburn Vancomycin HCl (Vancomycin/Ns) 2,000 mg in 500 mls @ 250 mls/hr IV ONCE ONE Stop: 12/31/23 18:19 Last Admin: 12/31/23 16:36 Dose: 250 mls/hr Magnesium Hydroxide (Milk Of Magnesia 30 Ml Oral.Susp) 30 ml PO DAILY PRN PRN Reason: Constipation Melatonin (Melatonin 3 Mg Tablet) 6 mg PO BEDTIME PRN PRN Reason: Insomnia Ondansetron HCl (Ondansetron Hcl 4 Mg/2 Ml Vial) 4 mg IVPUSH Q8H PRN PRN Reason: Nausea and Vomiting Sodium Chloride (0.9 % Sodium Chloride Flush 3 Ml Syringe) 3 ml IVFLUSH QSHIFT KAROLINA Home Medications ?Medication ?Instructions ?Recorded ?Confirmed ?Last Taken ?Type ferrous sulfate 325 mg (65 mg 325 mg PO QMONTH 08/07/23 12/31/23 1 Month Ago History iron) tablet,delayed release ~11/30/23 losartan 100 mg tablet 100 mg PO DAILY 08/07/23 12/31/23 12/31/23 09:00 History rosuvastatin 5 mg tablet 5 mg PO DAILY 08/07/23 12/31/23 12/31/23 09:00 History sertraline 50 mg tablet 50 mg PO DAILY 08/07/23 12/31/23 12/31/23 09:00 History cholecalciferol (vitamin D3) 50 50 mcg PO DAILY 11/28/23 12/31/23 12/31/23 09:00 History mcg (2,000 unit) capsule (Vitamin D3) insulin glargine 100 unit/mL (3 36 unit subcut DAILY 11/28/23 12/31/23 12/31/23 09:00 History mL) subcutaneous pen (Lantus Solostar U-100 Insulin) loratadine 10 mg tablet 10 mg PO DAILY 11/28/23 12/31/23 12/31/23 09:00 History insulin lispro 200 unit/mL (3 mL) 8 unit subcut TIDAC 12/31/23 12/31/23 12/31/23 09:00 History subcutaneous pen (Humalog KwikPen U-200 Insulin) sennosides 8.6 mg tablet (senna) 8.6 mg PO DAILY PRN Constipation 12/31/23 12/31/23 Unknown History Physical Exam 2 Vital Signs and Narrative: Vital Signs: Last Vital Signs Temp 100 F 12/31/23 16:28 Pulse 88 12/31/23 16:28 Resp 20 12/31/23 16:28 BP 182/74 H 12/31/23 16:28 Pulse Ox 91 L 12/31/23 16:28 O2 Del Method Room Air 12/31/23 16:28 BMI result Body Mass Index 31.9 Const: Other: General awake alert x3 ,in no acute distress. Moist mucous membrane, no lesions oral cavity Neck no JVD. CVS regular rate rhythm, Respiratory lungs clear to auscultation, no respiratory distress, no wheeze, no rhonchi. Gastrointestinal abdomen soft, non tender, bowel sounds audible. Extremities left foot normal examination, no edema Right foot > left ,plantar surface chronic appearing wound with thick callus no discharge, raised fluctuant area lateral margin right foot with surrounding redness extending to dorsum of foot Neuro awake alert x3, nonfocal,speech clear. Psych appropriate affect Results Labs 12/31/23 14:49 12/31/23 14:49 Labs: Laboratory Results - last 24 hr 12/31/23 14:49 MCV 87.6 MCH 28.2 MCHC 32.1 RDW 13.2 Plt Count 321 MPV 9.4 Immature Gran % (Auto) 0.6 H Neut % (Auto) 87.2 H Lymph % (Auto) 4.9 L [place] % (Auto) 7.1 Eos % (Auto) 0.0 Baso % (Auto) 0.2 Lymph # (Auto) 0.8 L [place] # (Auto) 1.2 Eos # (Auto) 0.0 Baso # (Auto) 0.0 Abs Immat Gran (auto) 0.11 H Absolute Neuts (auto) 14.8 H Absolute Nucleated RBC 0.000 Nucleated RBC % (auto) 0.0 ESR 106 H Anion Gap 12 Estim Creat Clear Calc 43.8 Estimated GFR 37 Random Glucose 178 H Lactic Acid 1.5 Calcium 9.3 Total Bilirubin 0.6 AST 23 ALT 15 Alkaline Phosphatase 88 C-Reactive Protein 20.80 H Total Protein 7.8 Albumin 3.6 Imaging Radiologist's Impressions: Impressions Foot X-Ray 12/31/23 14:34 IMPRESSION: Lisfranc changes and a rocker bottom deformity are redemonstrated. There is a plantar hindfoot soft tissue wound, with adjacent soft tissue gas. Mild cortical erosion is questioned of the adjacent distal calcaneal undersurface. The possibility of osteomyelitis is not excluded. This could be further evaluated with MRI, if clinically indicated. Electronically signed by: Jesus Mejia MD 12/31/2023 04:17 PM [facility] Assessment and Plan (1) CKD (chronic kidney disease): Status: Acute (2) Dyslipidemia: Status: Acute (3) 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: Status: Acute (4) Diabetic nephropathy associated with type 2 diabetes mellitus: Status: Acute (5) Foot osteomyelitis, right: Status: Acute Plan 63-year-old female patient with past medical history of chronic kidney disease stage 3 due to diabetic nephropathy, diabetes mellitus, hyperlipidemia, hypertension recently admitted for mechanical fall complicated with acute left femoral neck fracture status post surgery, presented with subjective fevers, right foot cramps redness and foul drainage Chronic right foot diabetic wound/with possible osteomyelitis with surrounding cellulitis/abscess with sepsis Noted to have leukocytosis, subjective fevers, tachycardia Chronically elevated ESR and CRP, follow blood cultures X-ray foot showed soft tissue wound right foot plantar surface with adjacent soft tissue gas, mild cortical erosion with possibility of osteomyelitis not excluded MRI recommended Place on IV vancomycin and IV Ancef, since prior foot wound grew Proteus sensitive to cefazolin surgical consult Good blood sugar control, follow labs Diabetes continue Lantus dose reduced from 36 units to 20 units, place on diabetic diet and insulin sliding scale monitor point of care CKD 3 Stable creatinine Hyperlipidemia Continue statin 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 Continue losartan and hydralazine, patient stopped using hydralazine and Lasix since yesterday due to urinary incontinence. Class 1 obesity will recommend low-calorie diet DVT prophylaxis Full code The patient will need two night inpatient hospitalization for management of acute on chronic right foot osteomyelitis with surrounding cellulitis and possible abscess and expert consultation. Quality Stroke Does the patient have a stroke diagnosis?: No VTE Prior VTE?: No VTE Risk Level:: Medical - moderate - high VTE Device Contraindication: Treatment Not Indicated VTE Drug Contraindication: N/A - Med Ordered
--- NOTE | 2023-12-31 17:25 | PHA.MEDREC ---
Addendum entered by Roger Bautista [facility] 12/31/23 17:36: Med reviewed Original Note: Pharmacy Consult ? Medication Reconciliation Pharmacy has completed the medication reconciliation. Spoke to pt to confirm meds. Pt states that they have not taken betamethasone or mupirocin in over a month, leaving off med rec. Patient also tells me that they stopped taking furosemide and hydralazine starting yesterday because of incontinence and do not want to take it. Will be leaving those off med rec as well.
[2023-12-31 19:15] VITALS: BP 150/66; PULSE 85; RESP 16; TEMP 36.9; O2SAT 98
[2023-12-31 20:48] LABS: Glucose, Whole Blood 136 mg/dL (60-115)
[2023-12-31] MEDS: Insulin Glargine,Hum.rec.anlog 100 UNIT/ML 10 ML VIAL 20 UNIT SUBCUT (21:11)
[2023-12-31 22:55] VITALS: BP 145/65; PULSE 86; RESP 18; TEMP 37.3; O2SAT 98
[2024-01-01] MEDS: 0.9 % Sodium Chloride Flush 3 ML SYRINGE IVFLUSH ×2 (00:41→07:55)
[2024-01-01] MEDS: ceFAZolin Sodium 1 GM VIAL IVPUSH ×3 (00:41→17:01)
--- NOTE | 2024-01-01 06:33 | PC.NURSE ---
pt resting comfortably through the night, assist with bed [place] in AM, used w/c upon arrival to ED to use the restroom prior to getting into bed, put did well with transfers at that time
[2024-01-01 07:29] LABS: Glucose, Whole Blood 125 mg/dL (60-115)
[2024-01-01 07:53] VITALS: BP 158/66; PULSE 81; RESP 16; TEMP 37.1; O2SAT 94
[2024-01-01 07:54] VITALS: BP 158/66
[2024-01-01] MEDS: hydrALAZINE HCl 25 MG TABLET PO ×2 (07:54→21:02)
[2024-01-01] MEDS: Losartan Potassium 50 MG TABLET 100 MG PO (07:54)
[2024-01-01] MEDS: Sertraline HCL 50 MG TABLET PO (07:54)
[2024-01-01] MEDS: Loratadine 10 MG TABLET PO (07:55)
--- NOTE | 2024-01-01 08:45 | MHC.EDTECH ---
pt ate 50% breakfast
--- NOTE | 2024-01-01 08:49 | PM.CNGS ---
History of Present Illness Consult details Consult date: 01/01/24 Narrative: [age] year female referred because of the right foot drainage and redness. She has had a complex history of problems with the right foot. She used to have a hardware here with chronic infection and she has had multiple admissions in the hospital in the distant past for this. Her hardware was eventually removed in [place] in 2019. She has had this periodic open wound in the area She had been following the [facility] and was being seen by wound care nurse. However, she suffered a left hip fracture last month and she was discharged to a rehab facility after that. She says that her wound care was not the same when she was in rehab facility so she developed this bulla along with redness on the right foot. Yesterday, she said that she had worsening redness and had some foul odor along with some chills and emesis so she went to the ER She is noted to have a draining area on the right foot and a thick callus at the plantar aspect. She has multiple medical problems including chronic kidney disease, diabetes, hyperlipidemia and hypertension. Review of Systems Constitutional: Constitutional: Reports chills and Denies fever(s) Cardiovascular: Cardiovascular: Denies chest pain, Denies dyspnea and Reports dyspnea on exertion Respiratory: Respiratory: Denies cough, Denies dyspnea and Reports dyspnea on exertion Gastrointestinal: Gastrointestinal: Denies hematochezia and Denies change in bowel habits Genitourinary: Genitourinary: Denies hematuria Musculoskeletal: Musculoskeletal: Reports abnormal gait, Denies back pain and Reports limited range of motion Neurologic: Reports abnormal gait, Denies focal weakness and Denies convulsions Psychiatric: Psychiatric: Denies depression and Denies mood swings [facility], [facility] Past Medical History Medical History (Updated 01/01/24 @ 08:54 by Unruly Mcbride MD) Diabetic foot infection Vertigo S/P angiogram of extremity (08/25/20) Diabetic foot ulcer associated with type 2 diabetes mellitus Cellulitis PAD (peripheral artery disease) Non-toxic multinodular goiter Dyslipidemia 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 Diabetic neuropathy associated with type 2 diabetes mellitus Diabetic retinopathy associated with type 2 diabetes mellitus Diabetic nephropathy associated with type 2 diabetes mellitus 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 (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 insulin Diabetes type 2, uncontrolled Foot osteomyelitis, right Family History Family History Father COPD (chronic obstructive pulmonary disease) Diabetes Mother Heart disease Surgical History Surgical History S/P thyroid biopsy Hx of cataract extraction Hx of LASIK Hx of eye surgery Hx of foot surgery Social History Social History Household Members: None Housing: House Are you a primary cna caregiver to a significant other at home: No Do you presently have visiting nurse or other home services: No Alcohol intake: current Alcohol intake frequency: does not drink Patient Tobacco Use Status: Former Tobacco user Years Smoked: 20 years Smoked in Last 30 Days: No e-Cigarette/Vaping Use: Never Used Use of substances other than those prescribed or required for medical reasons: No Advance Directives: Yes Advance Directives on File: Yes Advance Directives Date on File: 12/04/23 Do you have a plan to hurt others: No Plan Patient : No service: No Current occupational status: employed Meds Allergies Allergy/AdvReac Type Severity Reaction Status Date / Time amlodipine [From Norvasc] Allergy Mild Swelling Verified 12/31/23 14:42 Penicillins Allergy Mild Rash Verified 12/31/23 14:42 erythromycin base Allergy Unknown Unknown Verified 12/31/23 14:42 enoxaparin [From Lovenox] Allergy Vomiting Verified 12/31/23 14:42 heparin Allergy Vomiting Verified 12/31/23 14:42 clindamycin [CLINDAMYCIN] AdvReac Intermediate Diarrhea Verified 12/31/23 14:42 NephrAmine Allergy Unknown Swelling Uncoded 12/31/23 14:42 Active Medications: Current Medications Acetaminophen (Acetaminophen 325 Mg Tablet) 650 mg PO Q6H PRN PRN Reason: Pain, Mild (Pain Scale 1-3), fever or headache Calcium Carbonate (Calcium Carbonate 750 Mg Tab.Chew) 750 mg PO Q4H PRN PRN Reason: Heartburn Cefazolin Sodium (Cefazolin Sodium 1 Gm Vial) 1 gm IVPUSH Q8H [facility] Last Admin: 01/01/24 07:55 Dose: 1 gm Glucose (Glucose Gel 15 Gm Gel..Gram.) 15 gm PO Q15M PRN; Protocol PRN Reason: per Hypoglycemia Standing Ord. Hydralazine HCl (Hydralazine Hcl 25 Mg Tablet) 25 mg PO BID [place]; Protocol Last Admin: 01/01/24 07:54 Dose: 25 mg Dextrose (D10) 250 mls @ 750 mls/hr IV Q15M PRN; Protocol PRN Reason: per Hypoglycemia Standing Ord. Vancomycin HCl 1,000 mg/ (Sodium Chloride) 270 mls @ 270 mls/hr IV Q12H [facility] Insulin Glargine (Insulin Glargine,Hum.Rec.Anlog 100 Unit/Ml 10 Ml Vial) 20 unit SUBCUT BEDTIME [facility] Last Admin: 12/31/23 21:11 Dose: 20 unit Insulin Human Lispro (Insulin Lispro 100 Unit/Ml 3 Ml Vial) 0 unit SUBCUT QIDACHS [facility]; Protocol Last Admin: 01/01/24 07:40 Dose: Not Given Loratadine (Loratadine 10 Mg Tablet) 10 mg PO DAILY [facility] Last Admin: 01/01/24 07:55 Dose: 10 mg Losartan Potassium (Losartan Potassium 50 Mg Tablet) 100 mg PO DAILY [facility]; Protocol Last Admin: 01/01/24 07:54 Dose: 100 mg Magnesium Hydroxide (Milk Of Magnesia 30 Ml Oral.Susp) 30 ml PO DAILY PRN PRN Reason: Constipation Melatonin (Melatonin 3 Mg Tablet) 6 mg PO BEDTIME PRN PRN Reason: Insomnia Morphine Sulfate (Morphine Sulfate 4 Mg/Ml Cartridge) 3 mg IVPUSH Q4H PRN; Protocol PRN Reason: Pain, Severe (Pain Scale 7-10) Ondansetron HCl (Ondansetron Hcl 4 Mg/2 Ml Vial) 4 mg IVPUSH Q8H PRN PRN Reason: Nausea and Vomiting Oxycodone HCl (Oxycodone Hcl Immed Release 5 Mg Tablet) 5 mg PO Q6H PRN PRN Reason: Pain, Moderate(Pain Scale 4-6) Pharmacy Consult (Consult Rx Vancomycin Dosing) 1 each MISCELLANE DAILY PRN PRN Reason: Consult order Senna (Sennosides 8.6 Mg Tablet) 8.6 mg PO DAILY PRN PRN Reason: Constipation Sertraline HCl (Sertraline Hcl 50 Mg Tablet) 50 mg PO DAILY [facility] Last Admin: 01/01/24 07:54 Dose: 50 mg Sodium Chloride (0.9 % Sodium Chloride Flush 3 Ml Syringe) 3 ml IVFLUSH QSHIFT [facility] Last Admin: 01/01/24 07:55 Dose: 3 ml Home Medications ?Medication ?Instructions ?Recorded ?Confirmed ?Last Taken ?Type ferrous sulfate 325 mg (65 mg 325 mg PO QMONTH 08/07/23 12/31/23 1 Month Ago History iron) tablet,delayed release ~11/30/23 losartan 100 mg tablet 100 mg PO DAILY 08/07/23 12/31/23 12/31/23 09:00 History rosuvastatin 5 mg tablet 5 mg PO DAILY 08/07/23 12/31/23 12/31/23 09:00 History sertraline 50 mg tablet 50 mg PO DAILY 08/07/23 12/31/23 12/31/23 09:00 History cholecalciferol (vitamin D3) 50 50 mcg PO DAILY 11/28/23 12/31/23 12/31/23 09:00 History mcg (2,000 unit) capsule (Vitamin D3) insulin glargine 100 unit/mL (3 36 unit subcut DAILY 11/28/23 12/31/23 12/31/23 09:00 History mL) subcutaneous pen (Lantus Solostar U-100 Insulin) loratadine 10 mg tablet 10 mg PO DAILY 11/28/23 12/31/23 12/31/23 09:00 History insulin lispro 200 unit/mL (3 mL) 8 unit subcut TIDAC 12/31/23 12/31/23 12/31/23 09:00 History subcutaneous pen (Humalog KwikPen U-200 Insulin) sennosides 8.6 mg tablet (senna) 8.6 mg PO DAILY PRN Constipation 12/31/23 12/31/23 Unknown History Physical Exam Vital Signs: Vital Signs: Last Vital Signs Temp 98.8 F 01/01/24 07:53 Pulse 81 01/01/24 07:53 Resp 16 01/01/24 07:53 BP 158/66 H 01/01/24 07:54 Pulse Ox 94 01/01/24 07:53 O2 Del Method Room Air 01/01/24 07:53 BMI result Body Mass Index 31.9 Const: General: comfortable and no acute distress Orientation/consciousness: patient oriented x3 Neck: Neck: Yes no lymphadenopathy Resp: Auscultation: clear to auscultation bilaterally Cardio: Rhythm: regular rhythm GI: Palpation (GI): Soft to palpation, nontender and no guarding Neuro: General: patient oriented x3 Extrem: Other: Right foot - a bulla is noted on the lower aspect of the forefoot with purulent fluid. This measured about 2.5 cm in dimension. There was note of a very thick callus, about 3 cm plantar aspect. This is dry Results Labs 12/31/23 14:49 12/31/23 14:49 Labs: Abnormal lab results 12/31/23 12/31/23 01/01/24 Range/Units 14:49 20:44 07:25 WBC 17.0 H (4.8-10.8) X10*3/uL RBC 3.48 L (4.20-5.50) X10*6/uL Hgb 9.8 L (12.0-16.0) g/dl Hct 30.5 L (37.0-47.0) % Immature Gran % (Auto) 0.6 H (0.0-0.4) % Neut % (Auto) 87.2 H (45-73) % Lymph % (Auto) 4.9 L (20-40) % Lymph # (Auto) 0.8 L (1.2-4.9) X10*3/uL Abs Immat Gran (auto) 0.11 H (0.00-0.03) X10*3/uL Absolute Neuts (auto) 14.8 H (2.0-8.3) x10*3/uL ESR 106 H (0-20) MM/HR BUN 24 H (9-16) mg/dL Creatinine 1.45 H (0.5-1.4) mg/dL POC Glucose 136 H 125 H (60-115) mg/dL Random Glucose 178 H (60-115) mg/dL C-Reactive Protein 20.80 H (< or = 0.50) mg/dL Short CBC 12/31/23 Range/Units 14:49 WBC 17.0 H (4.8-10.8) X10*3/uL Hgb 9.8 L (12.0-16.0) g/dl Hct 30.5 L (37.0-47.0) % Plt Count 321 (160-400) X10*3/uL BMP 12/31/23 14:49 Sodium 135 Potassium 4.3 Chloride 100 Carbon Dioxide 27 BUN 24 H Creatinine 1.45 H Calcium 9.3 Liver Function 12/31/23 Range/Units 14:49 Total Bilirubin 0.6 (0.0-1.0) mg/dL AST 23 (5-31) U/L ALT 15 (0-31) U/L Alkaline Phosphatase 88 (39-117) U/L Albumin 3.6 (3.5-5.0) g/dL All other labs normal. Assessment and Plan (1) Diabetic foot infection: Status: Acute She has this bulla with an abscess on the forefoot on the right side as described above. Also has this very thick callus at the plantar aspect I opened up the bulla to drain this. Pus was noted. There seems to be a sinus underneath as well I also sharply debrided the thick callus. I applied dressings. She has been started on antibiotics We will follow along while she is in the hospital. She has been ordered to have an MRI. Procedures Date of Service Date of Service: 01/01/24 Procedure Note Procedure Note: Procedure: Drainage of bulla on the right foot with an abscess, excisional debridement of thick callus plantar aspect of the right foot There was a bulla containing purulent fluid about 2.5 cm in diameter on the forefoot on the right side laterally. I opened this up bluntly and drained pus. There was note of what appeared to be a small sinus I also sharply debrided the thick callus. This measured about 3 cm. I wrapped the foot with dry dressings. She tolerated procedure well. There were no immediate complications
--- NOTE | 2024-01-01 09:15 | MHC.EDTECH ---
pt was washed up and had complete bed change
--- NOTE | 2024-01-01 10:27 | PC.NURSE ---
patient a&ox3, vitals previously stable, rr equal/non labored lungs diminished throughout, noted healing intact scabs to upper back, rt foot wound Dr. Mcbride came to see this morning for her rt foot, pt had a blister and an eschar area to the rt plantar foot- he drained the blister and applied dressings himself, a wound consult was then put in. Pt has minimal pain stated she has 3/10 pain to that foot but denied need for medication at this time. Call beal within reach, will continue with plan of care.
[2024-01-01 11:43] LABS: Glucose, Whole Blood 132 mg/dL (60-115)
--- NOTE | 2024-01-01 12:44 | MHC.EDTECH ---
pt ate 100% lunch
--- NOTE | 2024-01-01 12:58 | MHC.CM.PN ---
PT LIVES ALONE DCD NOV 5 FROM [facility] DOES NOT WANT REHAB WHEN DCD PT IS AVTIVE WITH [facility] AND EC HAS OWN RIDE HOME
[2024-01-01 13:03] LABS: Creatinine Clr Calc Pharmacy 34.7; Estimated Glomerular Filt Rate 28
--- NOTE | 2024-01-01 13:08 | HO.PM.IMPN ---
Subjective Subjective Date of Service: 01/01/24 Interval History: Feeling a little better this morning, no nausea no vomiting or abdominal pain, no acute events overnight, this morning seen by General surgery and underwent bedside excisional debridement of thick callus plantar surface and drainage of bulla with an abscess right foot. Patient denies fever, no chills. Review of Systems All other symptoms are reviewed and are negative. Physical Exam Vital Signs: Vital Signs: Last Vital Signs Temp 98.8 F 01/01/24 07:53 Pulse 81 01/01/24 07:53 Resp 16 01/01/24 07:53 BP 158/66 H 01/01/24 07:54 Pulse Ox 94 01/01/24 07:53 O2 Del Method Room Air 01/01/24 07:53 BMI result Body Mass Index 31.9 Const: Other: General awake alert x3 ,in no acute distress. Moist mucous membrane, no lesions oral cavity Neck no JVD. CVS regular rate rhythm, Respiratory lungs clear to auscultation, no respiratory distress, no wheeze, no rhonchi. Gastrointestinal abdomen soft, non tender, bowel sounds audible. Extremities left foot normal examination, no edema Right foot dressing in place Neuro awake alert x3, non focal,speech clear. Psych appropriate affect Objective Data Active Medications Acetaminophen (Acetaminophen 325 Mg Tablet) 650 mg PO Q6H PRN PRN Reason: Pain, Mild (Pain Scale 1-3), fever or headache Calcium Carbonate (Calcium Carbonate 750 Mg Tab.Chew) 750 mg PO Q4H PRN PRN Reason: Heartburn Cefazolin Sodium (Cefazolin Sodium 1 Gm Vial) 1 gm IVPUSH Q8H [facility] Last Admin: 01/01/24 07:55 Dose: 1 gm Documented By: OLAMIDE Glucose (Glucose Gel 15 Gm Gel..Gram.) 15 gm PO Q15M PRN; Protocol PRN Reason: per Hypoglycemia Standing Ord. Hydralazine HCl (Hydralazine Hcl 25 Mg Tablet) 25 mg PO BID [facility]; Protocol Last Admin: 01/01/24 07:54 Dose: 25 mg Documented By: OLAMIDE Dextrose (D10) 250 mls @ 750 mls/hr IV Q15M PRN; Protocol PRN Reason: per Hypoglycemia Standing Ord. Insulin Glargine (Insulin Glargine,Hum.Rec.Anlog 100 Unit/Ml 10 Ml Vial) 20 unit SUBCUT BEDTIME [facility] Last Admin: 12/31/23 21:11 Dose: 20 unit Documented By: TUCKER Insulin Human Lispro (Insulin Lispro 100 Unit/Ml 3 Ml Vial) 0 unit SUBCUT QIDACHS [facility]; Protocol Last Admin: 01/01/24 11:51 Dose: Not Given Documented By: OLAMIDE Non-Admin Reason: No Insulin Coverage Loratadine (Loratadine 10 Mg Tablet) 10 mg PO DAILY [facility] Last Admin: 01/01/24 07:55 Dose: 10 mg Documented By: OLAMIDE Losartan Potassium (Losartan Potassium 50 Mg Tablet) 100 mg PO DAILY [facility]; Protocol Last Admin: 01/01/24 07:54 Dose: 100 mg Documented By: OLAMIDE Magnesium Hydroxide (Milk Of Magnesia 30 Ml Oral.Susp) 30 ml PO DAILY PRN PRN Reason: Constipation Melatonin (Melatonin 3 Mg Tablet) 6 mg PO BEDTIME PRN PRN Reason: Insomnia Morphine Sulfate (Morphine Sulfate 4 Mg/Ml Cartridge) 3 mg IVPUSH Q4H PRN; Protocol PRN Reason: Pain, Severe (Pain Scale 7-10) Ondansetron HCl (Ondansetron Hcl 4 Mg/2 Ml Vial) 4 mg IVPUSH Q8H PRN PRN Reason: Nausea and Vomiting Oxycodone HCl (Oxycodone Hcl Immed Release 5 Mg Tablet) 5 mg PO Q6H PRN PRN Reason: Pain, Moderate(Pain Scale 4-6) Pharmacy Consult (Consult Rx Vancomycin Dosing) 1 each MISCELLANE DAILY PRN PRN Reason: Consult order Senna (Sennosides 8.6 Mg Tablet) 8.6 mg PO DAILY PRN PRN Reason: Constipation Sertraline HCl (Sertraline Hcl 50 Mg Tablet) 50 mg PO DAILY [facility] Last Admin: 01/01/24 07:54 Dose: 50 mg Documented By: OLAMIDE Sodium Chloride (0.9 % Sodium Chloride Flush 3 Ml Syringe) 3 ml IVFLUSH QSHIFT [facility] Last Admin: 01/01/24 07:55 Dose: 3 ml Documented By: OLAMIDE Labs 12/31/23 14:49 01/01/24 12:41 Labs: Laboratory Results - last 24 hr 12/31/23 12/31/23 01/01/24 14:49 20:44 07:25 MCV 87.6 MCH 28.2 MCHC 32.1 RDW 13.2 Plt Count 321 MPV 9.4 Immature Gran % (Auto) 0.6 H Neut % (Auto) 87.2 H Lymph % (Auto) 4.9 L Taliaferro % (Auto) 7.1 Eos % (Auto) 0.0 Baso % (Auto) 0.2 Lymph # (Auto) 0.8 L Taliaferro # (Auto) 1.2 Eos # (Auto) 0.0 Baso # (Auto) 0.0 Abs Immat Gran (auto) 0.11 H Absolute Neuts (auto) 14.8 H Absolute Nucleated RBC 0.000 Nucleated RBC % (auto) 0.0 ESR 106 H Anion Gap 12 Estim Creat Clear Calc 43.8 Estimated GFR 37 POC Glucose 136 H 125 H Random Glucose 178 H Lactic Acid 1.5 Calcium 9.3 Total Bilirubin 0.6 AST 23 ALT 15 Alkaline Phosphatase 88 C-Reactive Protein 20.80 H Total Protein 7.8 Albumin 3.6 01/01/24 01/01/24 11:37 12:41 MCV MCH MCHC RDW Plt Count MPV Immature Gran % (Auto) Neut % (Auto) Lymph % (Auto) Taliaferro % (Auto) Eos % (Auto) Baso % (Auto) Lymph # (Auto) Taliaferro # (Auto) Eos # (Auto) Baso # (Auto) Abs Immat Gran (auto) Absolute Neuts (auto) Absolute Nucleated RBC Nucleated RBC % (auto) ESR Anion Gap Estim Creat Clear Calc 34.7 Estimated GFR 28 POC Glucose 132 H Random Glucose Lactic Acid Calcium Total Bilirubin AST ALT Alkaline Phosphatase C-Reactive Protein Total Protein Albumin Assessment and Plan (1) Diabetic foot infection: Status: Acute (2) CKD (chronic kidney disease): Status: Acute (3) 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: Status: Acute Plan 63-year-old female patient with past medical history of chronic kidney disease stage 3 due to diabetic nephropathy, diabetes mellitus, hyperlipidemia, hypertension recently admitted for mechanical fall complicated with acute left femoral neck fracture status post surgery, presented with subjective fevers, right foot cramps redness and foul drainage Chronic right foot diabetic wound/with possible osteomyelitis with surrounding cellulitis/abscess with sepsis Noted to have leukocytosis, subjective fevers, tachycardia on admission Chronically elevated ESR and CRP, blood cultures pend. X-ray foot showed soft tissue wound right foot plantar surface with adjacent soft tissue gas, mild cortical erosion with possibility of osteomyelitis not excluded MRI recommended on IV vancomycin and IV Ancef, since prior foot wound grew Proteus sensitive to cefazolin Underwent bedside debridement of plantar wound and drainage of bulla with abscess follow labs ID eval Diabetes with hyperglycemia , stable blood sugar, continue Lantus dose reduced from 36 units to 20 units, on diabetic diet and insulin sliding scale monitor point of care Acute on CKD 3 Noted to have rising creatinine will hold losartan, give 1 L of IV fluids, follow vanco trough and hold vancomycin Hyperlipidemia Continue statin 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 Continue hydralazine, hold losartan due to VENKATESH and adjust dose of hydralazine if noted to have elevated blood pressures Class 1 obesity will recommend low-calorie diet DVT prophylaxis Full code patient will require continued inpatient hospitalization for management of acute on chronic right foot osteomyelitis with surrounding cellulitis and possible abscess and wound care. Quality Stroke Does the patient have a stroke diagnosis?: No VTE Prior VTE?: No VTE Risk Level:: Medical - moderate - high VTE Device Contraindication: Treatment Not Indicated VTE Drug Contraindication: N/A - Med Ordered
[2024-01-01] MEDS: 0.9 % Sodium Chloride 1,000 ML 80 ML IVCONT (13:43)
[2024-01-01 13:52] VITALS: BP 135/61; PULSE 79; RESP 22; TEMP 36.6; O2SAT 92
[2024-01-01] MEDS: Acetaminophen 325 MG TABLET 650 MG PO (14:38)
--- NOTE | 2024-01-01 14:40 | PC.NURSE ---
pt verbalizing slight discomfort in LLE - requesting tylenol. prn tylenol utilized - effectiveness pending. pt otherwise resting in no apparent distress. no sob/wob noted. bed alarm turned on for safety precautions. call beal placed within reach.
[2024-01-01 16:25] LABS: Glucose, Whole Blood 189 mg/dL (60-115)
--- NOTE | 2024-01-01 16:50 | MHC.EDTECH ---
pt had x2 inc. in the brief
[2024-01-01] MEDS: Insulin Lispro 100 UNIT/ML 3 ML VIAL SUBCUT ×2 (17:01→21:01)
--- NOTE | 2024-01-01 18:19 | MHC.EDTECH ---
pt was check and was not inc at the time
--- NOTE | 2024-01-01 18:23 | MHC.EDTECH ---
pt ate 100% for dinner
[2024-01-01 20:15] LABS: Glucose, Whole Blood 165 mg/dL (60-115)
[2024-01-01 20:52] VITALS: BP 137/66; PULSE 67; RESP 18; TEMP 36.4; O2SAT 95
[2024-01-01 21:02] VITALS: BP 137/66
[2024-01-01] MEDS: Insulin Glargine,Hum.rec.anlog 100 UNIT/ML 10 ML VIAL 20 UNIT SUBCUT (21:02)
[2024-01-02] MEDS: ceFAZolin Sodium 1 GM VIAL IVPUSH ×3 (00:18→16:45)
[2024-01-02 06:01] LABS: Hematocrit 27.8 % (37.0-47.0); Mean Corpuscular HGB Conc 32.4 g/dl (31.0-35.0); Mean Corpuscular Hemoglobin 28.4 pg (27.0-33.0); Mean Corpuscular Volume 87.7 fL (80.0-98.0); Mean Platelet Volume 9.8 fL (9.4-12.3); Platelet Count 303 X10*3/uL (160-400); Red Blood Count 3.17 X10*6/uL (4.20-5.50); Red Cell Distribution Width 12.9 % (11.0-16.0); White Blood Count 10.5 X10*3/uL (4.8-10.8)
[2024-01-02 06:03] VITALS: BP 155/71; PULSE 71; RESP 18; TEMP 36.7; O2SAT 96
[2024-01-02 06:13] LABS: Anion Gap 14 (12-20); Blood Urea Nitrogen 29 mg/dL (9-16); Calcium 9.1 mg/dL (8.4-10.2); Carbon Dioxide 24 mmol/L (22-29); Chloride 106 mmol/L (96-108); Creatinine Clr Calc Pharmacy 38.8; Estimated Glomerular Filt Rate 32; Glucose Random 111 mg/dL (60-115); Potassium 4.7 mmol/L (3.3-5.1); Sodium 139 mmol/L (135-145)
[2024-01-02 07:29] LABS: Glucose, Whole Blood 113 mg/dL (60-115)
[2024-01-02 07:45] VITALS: BP 165/80; PULSE 73; RESP 17; TEMP 37; O2SAT 96
[2024-01-02 09:00] VITALS: BP 165/80
[2024-01-02] MEDS: Sertraline HCL 50 MG TABLET PO (09:00)
[2024-01-02] MEDS: hydrALAZINE HCl 25 MG TABLET PO (09:00)
--- NOTE | 2024-01-02 09:41 | HO.WOUND ---
Wound Consult: Initial 63yr old?female admitted to [facility] on 12/31/23 - See progress notes and H&P for detailed history.? Wound consult placed for Right foot diabetic Wounds.? Patient agreeable to assessment and photo documentation.? Patient repors she has followed with wound clinic in the past and plan to return at time of d/c. Right Lateral Wound Etiology: ?Diabetic wound Measurements: 1.2cm x 1.2cm x 1.5cm Wound Bed: moist fibrinous necrotic tissue fluctuance noted able to express drainage Drainage / Odor: creamy seropurulent mild odor drainage Edges: ? well defined but not adherent Joyce wound: ? pink erythema some swelling noted Pain: denies Goals of Treatment: ?NS moist gauze packing for enhanced autolytic debridement Right Plantar Wound Etiology: ?Diabetic wound Measurements: 0.3cm x 0.3cm x 1cm Wound Bed: pink wound bed with dry stable black scab Drainage / Odor: none noted Edges: ? well defined but not adherent and callused Joyce wound: ? dry dark callused tissue Pain: denies Goals of Treatment: ?Durafiber AG for moisture management and autolytic debridement Recommendations: 1. Turn and Reposition every 2 hours and as needed for patient comfort.? Use pillows or wedges to support off loading positions. 2. Off Load all bony prominences with use of pillows and heel boots if needed.? Apply Preventative foams where needed. ? 3. Monitor for incontinence and moisture control, use barrier creams when needed for prevention and treatment. 4. Provide adequate and supplemental nutrition.? 5. When applicable maintain blood glucose levels per Providers order. 6. Right Lateral Foot - Cleanse and irrigate with NS, pat dry. Apply skin prep to periwound, lightly pack with NS moist Kerlix gauze, cover with dry gauze, ABD pad and wrap. Change Daily. 7. Right Plantar wound - Cleanse with NS moist gauze, Lightly pack wound bed with Durafiber AG, cover with dry gauze, ABD pad and wrap. Change every other day. Recommend follow up out patient Wound Clinic at [address] [place] [id number] and to call for an appointment at time of discharge. [phone].? Re-consult wound care Nurse for wound deterioration or wound changes.
--- NOTE | 2024-01-02 10:00 | MHC.EDTECH ---
Patient ate 100% of her breakfast, 240cc of juice
--- NOTE | 2024-01-02 10:13 | PC.NURSE ---
Pt enters my care- Pt denied any chest pain and/or SOB. Insulin not needed this am. MD aware- New BP medication ordered
--- NOTE | 2024-01-02 10:28 | PC.NURSE ---
wound care nurse at bedside- dressing chnaged- noted to have purluent drainage- Wound care nurse stated she would message the provider with her findings
[2024-01-02 11:27] LABS: Glucose, Whole Blood 171 mg/dL (60-115)
[2024-01-02] MEDS: Insulin Lispro 100 UNIT/ML 3 ML VIAL SUBCUT ×2 (11:58→17:22)
--- NOTE | 2024-01-02 13:32 | W.PM.IDCN ---
History of Present Illness Data of Consult Service Date: 01/01/24 Requesting physician: Charlotte Villela Primary Care Provider: MD HODA Schofield Reason for consult: right foot OM,wound plantar She has had chronic wounds bilateral feet. She had fallen and had left femoral neck fracture and repair. She was discharged to Rehab and went home on 12/18. She has noticed blister last week under right foot. Blood cultures negative so far. She has had proteus in past. 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 Diabetes type 2, uncontrolled Foot osteomyelitis, right Family History Family History Father COPD (chronic obstructive pulmonary disease) Diabetes Mother Heart disease Family history: reviewed and not pertinent Surgical History Surgical History S/P thyroid biopsy Hx of cataract extraction Hx of LASIK Hx of eye surgery Hx of foot surgery Social History Social History Household Members: None Housing: House Are you a primary vp care management to a significant other at home: No Do you presently have visiting nurse or other home services: No Alcohol intake: current Alcohol intake frequency: does not drink Patient Tobacco Use Status: Former Tobacco user Years Smoked: 20 years Smoked in Last 30 Days: No e-Cigarette/Vaping Use: Never Used Use of substances other than those prescribed or required for medical reasons: No Advance Directives: Yes Advance Directives on File: Yes Advance Directives Date on File: 12/04/23 Do you have a plan to hurt others: No Plan Patient : No service: No Current occupational status: employed Meds Allergies Allergy/AdvReac Type Severity Reaction Status Date / Time amlodipine [From Norvasc] Allergy Mild Swelling Verified 12/31/23 14:42 Penicillins Allergy Mild Rash Verified 12/31/23 14:42 erythromycin base Allergy Unknown Unknown Verified 12/31/23 14:42 enoxaparin [From Lovenox] Allergy Vomiting Verified 12/31/23 14:42 heparin Allergy Vomiting Verified 12/31/23 14:42 clindamycin [CLINDAMYCIN] AdvReac Intermediate Diarrhea Verified 12/31/23 14:42 NephrAmine Allergy Unknown Swelling Uncoded 12/31/23 14:42 Active Medications: Current Medications Acetaminophen (Acetaminophen 325 Mg Tablet) 650 mg PO Q6H PRN PRN Reason: Pain, Mild (Pain Scale 1-3), fever or headache Last Admin: 01/01/24 14:38 Dose: 650 mg Calcium Carbonate (Calcium Carbonate 750 Mg Tab.Chew) 750 mg PO Q4H PRN PRN Reason: Heartburn Cefazolin Sodium (Cefazolin Sodium 1 Gm Vial) 1 gm IVPUSH Q8H [facility] Last Admin: 01/02/24 09:01 Dose: 1 gm Glucose (Glucose Gel 15 Gm Gel..Gram.) 15 gm PO Q15M PRN; Protocol PRN Reason: per Hypoglycemia Standing Ord. Hydralazine HCl (Hydralazine Hcl 25 Mg Tablet) 25 mg PO BID [facility]; Protocol Last Admin: 01/02/24 09:00 Dose: 25 mg Dextrose (D10) 250 mls @ 750 mls/hr IV Q15M PRN; Protocol PRN Reason: per Hypoglycemia Standing Ord. Vancomycin HCl 1,000 mg/ (Sodium Chloride) 270 mls @ 270 mls/hr IV Q24H [facility] Insulin Glargine (Insulin Glargine,Hum.Rec.Anlog 100 Unit/Ml 10 Ml Vial) 20 unit SUBCUT BEDTIME [facility] Last Admin: 01/01/24 21:02 Dose: 20 unit Insulin Human Lispro (Insulin Lispro 100 Unit/Ml 3 Ml Vial) 0 unit SUBCUT QIDACHS [facility]; Protocol Last Admin: 01/02/24 11:58 Dose: 2 unit Loratadine (Loratadine 10 Mg Tablet) 10 mg PO DAILY [facility] Last Admin: 01/02/24 09:01 Dose: Not Given Magnesium Hydroxide (Milk Of Magnesia 30 Ml Oral.Susp) 30 ml PO DAILY PRN PRN Reason: Constipation Melatonin (Melatonin 3 Mg Tablet) 6 mg PO BEDTIME PRN PRN Reason: Insomnia Morphine Sulfate (Morphine Sulfate 4 Mg/Ml Cartridge) 3 mg IVPUSH Q4H PRN; Protocol PRN Reason: Pain, Severe (Pain Scale 7-10) Ondansetron HCl (Ondansetron Hcl 4 Mg/2 Ml Vial) 4 mg IVPUSH Q8H PRN PRN Reason: Nausea and Vomiting Oxycodone HCl (Oxycodone Hcl Immed Release 5 Mg Tablet) 5 mg PO Q6H PRN PRN Reason: Pain, Moderate(Pain Scale 4-6) Pharmacy Consult (Consult Rx Vancomycin Dosing) 1 each MISCELLANE DAILY PRN PRN Reason: Consult order Senna (Sennosides 8.6 Mg Tablet) 8.6 mg PO DAILY PRN PRN Reason: Constipation Sertraline HCl (Sertraline Hcl 50 Mg Tablet) 50 mg PO DAILY [facility] Last Admin: 01/02/24 09:00 Dose: 50 mg Sodium Chloride (0.9 % Sodium Chloride Flush 3 Ml Syringe) 3 ml IVFLUSH QSHIFT [facility] Last Admin: 01/02/24 09:02 Dose: Not Given Home Medications ?Medication ?Instructions ?Recorded ?Confirmed ?Last Taken ?Type ferrous sulfate 325 mg (65 mg 325 mg PO QMONTH 08/07/23 12/31/23 1 Month Ago History iron) tablet,delayed release ~11/30/23 losartan 100 mg tablet 100 mg PO DAILY 08/07/23 12/31/23 12/31/23 09:00 History rosuvastatin 5 mg tablet 5 mg PO DAILY 08/07/23 12/31/23 12/31/23 09:00 History sertraline 50 mg tablet 50 mg PO DAILY 08/07/23 12/31/23 12/31/23 09:00 History cholecalciferol (vitamin D3) 50 50 mcg PO DAILY 11/28/23 12/31/23 12/31/23 09:00 History mcg (2,000 unit) capsule (Vitamin D3) insulin glargine 100 unit/mL (3 36 unit subcut DAILY 11/28/23 12/31/23 12/31/23 09:00 History mL) subcutaneous pen (Lantus Solostar U-100 Insulin) loratadine 10 mg tablet 10 mg PO DAILY 11/28/23 12/31/23 12/31/23 09:00 History insulin lispro 200 unit/mL (3 mL) 8 unit subcut TIDAC 12/31/23 12/31/23 12/31/23 09:00 History subcutaneous pen (Humalog KwikPen U-200 Insulin) sennosides 8.6 mg tablet (senna) 8.6 mg PO DAILY PRN Constipation 12/31/23 12/31/23 Unknown History Physical Exam Vital Signs: Vital Signs: Last Vital Signs Temp 98.6 F 01/02/24 07:45 Pulse 73 01/02/24 07:45 Resp 17 01/02/24 07:45 BP 165/80 H 01/02/24 09:00 Pulse Ox 96 01/02/24 07:45 O2 Del Method Room Air 01/02/24 07:45 BMI result Body Mass Index 31.9 Extrem: Other: right plantar foot wound, Charcot foot Results Labs 01/02/24 05:45 01/02/24 05:45 Labs: Short CBC 01/02/24 Range/Units 05:45 WBC 10.5 (4.8-10.8) X10*3/uL Hgb 9.0 L (12.0-16.0) g/dl Hct 27.8 L (37.0-47.0) % Plt Count 303 (160-400) X10*3/uL BMP 01/02/24 05:45 Sodium 139 Potassium 4.7 Chloride 106 Carbon Dioxide 24 BUN 29 H Creatinine 1.64 H Calcium 9.1 Microbiology Microbiology Results: Microbiology 12/31/23 15:42 Blood - Venous Blood Culture - Preliminary No growth after 24 hours. 12/31/23 14:49 Blood - Venous Blood Culture - Preliminary No growth after 24 hours. Assessment and Plan (1) Diabetic foot infection: Status: Acute Plan This is probable OM with ESR over 100 and changes on XRay. She has no organism identified. MRI can be not as helpful with Charcot foot. Would give IV Kefzol and Vancomycin 6 week IV antibiotics. Await culture if any,foot/blood.
[2024-01-02 14:09] VITALS: BP 164/70; PULSE 75; RESP 14; TEMP 37.1; O2SAT 96
--- NOTE | 2024-01-02 14:25 | PC.NURSE ---
Bloodwork drawns-VSS- pt does not report any pain
--- NOTE | 2024-01-02 16:09 | P.PNIM_ITS ---
Subjective Subjective Date of Service: 01/02/24 Interval History: Feeling better offers no acute complaints no nausea, no vomiting, no fevers, no chills blood cultures so far negative times 24 hours. Review of Systems All other system reviewed and are negative Physical Exam 2 Vital Signs: Vital Signs: Last Vital Signs Temp 98.8 F 01/02/24 14:09 Pulse 75 01/02/24 14:09 Resp 14 01/02/24 14:09 BP 164/70 H 01/02/24 14:09 Pulse Ox 96 01/02/24 14:09 O2 Del Method Room Air 01/02/24 07:45 BMI result Body Mass Index 31.9 Const: Other: General awake alert x3 ,in no acute distress. Moist mucous membrane, no lesions oral cavity Neck no JVD. CVS regular rate rhythm, Respiratory lungs clear to auscultation, no respiratory distress, no wheeze, no rhonchi. Gastrointestinal abdomen soft, non tender, bowel sounds audible. Extremities left foot normal examination, no edema Right foot dressing in place, decreased redness swelling of right leg Neuro awake alert x3, non focal,speech clear. Psych appropriate affect Objective Data Active Medications Acetaminophen (Acetaminophen 325 Mg Tablet) 650 mg PO Q6H PRN PRN Reason: Pain, Mild (Pain Scale 1-3), fever or headache Last Admin: 01/01/24 14:38 Dose: 650 mg Documented By: DELANEY Calcium Carbonate (Calcium Carbonate 750 Mg Tab.Chew) 750 mg PO Q4H PRN PRN Reason: Heartburn Cefazolin Sodium (Cefazolin Sodium 1 Gm Vial) 1 gm IVPUSH Q8H [facility] Last Admin: 01/02/24 09:01 Dose: 1 gm Documented By: MERON Glucose (Glucose Gel 15 Gm Gel..Gram.) 15 gm PO Q15M PRN; Protocol PRN Reason: per Hypoglycemia Standing Ord. Hydralazine HCl (Hydralazine Hcl 25 Mg Tablet) 25 mg PO BID [facility]; Protocol Last Admin: 01/02/24 09:00 Dose: 25 mg Documented By: MERON Dextrose (D10) 250 mls @ 750 mls/hr IV Q15M PRN; Protocol PRN Reason: per Hypoglycemia Standing Ord. Vancomycin HCl 750 mg/ Sodium (Chloride) 265 mls @ 265 mls/hr IV Q12H [facility] Insulin Glargine (Insulin Glargine,Hum.Rec.Anlog 100 Unit/Ml 10 Ml Vial) 20 unit SUBCUT BEDTIME [facility] Last Admin: 01/01/24 21:02 Dose: 20 unit Documented By: STACIA Insulin Human Lispro (Insulin Lispro 100 Unit/Ml 3 Ml Vial) 0 unit SUBCUT QIDACHS [facility]; Protocol Last Admin: 01/02/24 11:58 Dose: 2 unit Documented By: MERON Loratadine (Loratadine 10 Mg Tablet) 10 mg PO DAILY [facility] Last Admin: 01/02/24 09:01 Dose: Not Given Documented By: MERON Non-Admin Reason: Patient Refused Magnesium Hydroxide (Milk Of Magnesia 30 Ml Oral.Susp) 30 ml PO DAILY PRN PRN Reason: Constipation Melatonin (Melatonin 3 Mg Tablet) 6 mg PO BEDTIME PRN PRN Reason: Insomnia Morphine Sulfate (Morphine Sulfate 4 Mg/Ml Cartridge) 3 mg IVPUSH Q4H PRN; Protocol PRN Reason: Pain, Severe (Pain Scale 7-10) Ondansetron HCl (Ondansetron Hcl 4 Mg/2 Ml Vial) 4 mg IVPUSH Q8H PRN PRN Reason: Nausea and Vomiting Oxycodone HCl (Oxycodone Hcl Immed Release 5 Mg Tablet) 5 mg PO Q6H PRN PRN Reason: Pain, Moderate(Pain Scale 4-6) Pharmacy Consult (Consult Rx Vancomycin Dosing) 1 each MISCELLANE DAILY PRN PRN Reason: Consult order Senna (Sennosides 8.6 Mg Tablet) 8.6 mg PO DAILY PRN PRN Reason: Constipation Sertraline HCl (Sertraline Hcl 50 Mg Tablet) 50 mg PO DAILY [facility] Last Admin: 01/02/24 09:00 Dose: 50 mg Documented By: MERON Sodium Chloride (0.9 % Sodium Chloride Flush 3 Ml Syringe) 3 ml IVFLUSH QSHIFT [facility] Last Admin: 01/02/24 09:02 Dose: Not Given Documented By: MERON Non-Admin Reason: IV Running Labs 01/02/24 05:45 01/02/24 05:45 Labs: Laboratory Results - last 24 hr 01/01/24 01/01/24 01/02/24 16:22 20:04 05:45 MCV 87.7 MCH 28.4 MCHC 32.4 RDW 12.9 Plt Count 303 MPV 9.8 Absolute Nucleated RBC 0.000 Nucleated RBC % (auto) 0.0 Anion Gap 14 Estim Creat Clear Calc 38.8 Estimated GFR 32 POC Glucose 189 H 165 H Random Glucose 111 Calcium 9.1 Random Vancomycin 01/02/24 01/02/24 01/02/24 07:24 11:21 14:15 MCV MCH MCHC RDW Plt Count MPV Absolute Nucleated RBC Nucleated RBC % (auto) Anion Gap Estim Creat Clear Calc Estimated GFR POC Glucose 113 171 H Random Glucose Calcium Random Vancomycin 5.0 L Microbiology Microbiology Results: Microbiology 12/31/23 15:42 Blood Culture - Preliminary Blood - Venous No growth after 24 hours. 12/31/23 14:49 Blood Culture - Preliminary Blood - Venous No growth after 24 hours. Assessment and Plan (1) Diabetic foot infection: Status: Acute (2) CKD (chronic kidney disease): Status: Acute Plan 63-year-old female patient with past medical history of chronic kidney disease stage 3 due to diabetic nephropathy, diabetes mellitus, hyperlipidemia, hypertension recently admitted for mechanical fall complicated with acute left femoral neck fracture status post surgery, presented with subjective fevers, right foot cramps redness and foul drainage Chronic right foot diabetic wound/with possible osteomyelitis with surrounding cellulitis/abscess with sepsis Noted to have leukocytosis, subjective fevers, tachycardia on admission Chronically elevated ESR and CRP, blood cultures x2 negative X-ray foot showed soft tissue wound right foot plantar surface with adjacent soft tissue gas, mild cortical erosion with possibility of osteomyelitis not excluded MRI recommended on IV vancomycin and IV Ancef, since prior foot wound grew Proteus sensitive to cefazolin Underwent bedside debridement of plantar wound and drainage of bulla with abscess follow labs Id recommend 6 weeks of IV vancomycin and Ancef, follow ESR and CRP Diabetes with hyperglycemia , stable blood sugar, continue Lantus 20 units, on diabetic diet and insulin sliding scale monitor point of care Acute on CKD 3 Creatinine trending down status post IV fluids Hyperlipidemia Continue statin 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 Continue hydralazine dose increased to 50 b.i.d. since losartan on hold due to VENKATESH follow BP closely, Class 1 obesity will recommend low-calorie diet DVT prophylaxis Full code patient will require continued inpatient hospitalization for management of acute on chronic right foot osteomyelitis with surrounding cellulitis and possible abscess and wound care on IV antibiotics. Quality Stroke Does the patient have a stroke diagnosis?: No VTE Prior VTE?: No VTE Risk Level:: Medical - moderate - high VTE Device Contraindication: Treatment Not Indicated VTE Drug Contraindication: N/A - Med Ordered
--- NOTE | 2024-01-02 16:46 | PC.NURSE ---
IV in right AC was not intact - dressing was half peeled off and catheter was completely out of vein. new access established in left ac
[2024-01-02] MEDS: vancomycin HCL 750 MG in 0.9 % Sodium Chloride 250 ML 265 MG IV (17:07)
[2024-01-02 17:13] VITALS: BMI 33.0
[2024-01-02 17:15] VITALS: BP 136/58; PULSE 72; RESP 16; TEMP 36.8; O2SAT 96
[2024-01-02 17:21] LABS: Glucose, Whole Blood 166 mg/dL (60-115)
[2024-01-02 19:26] VITALS: BP 160/72; PULSE 74; RESP 18; TEMP 36.6; O2SAT 96
[2024-01-02 20:21] LABS: Glucose, Whole Blood 147 mg/dL (60-115)
[2024-01-02] MEDS: Insulin Glargine,Hum.rec.anlog 100 UNIT/ML 10 ML VIAL 20 UNIT SUBCUT (21:39)
[2024-01-02] MEDS: hydrALAZINE HCl 50 MG TABLET PO (21:39)
[2024-01-02] MEDS: 0.9 % Sodium Chloride Flush 3 ML SYRINGE IVFLUSH (21:40)
[2024-01-03] MEDS: ceFAZolin Sodium 1 GM VIAL IVPUSH ×3 (00:40→16:36)
[2024-01-03 03:18] VITALS: BP 148/70; PULSE 73; RESP 18; TEMP 36.6; O2SAT 96
[2024-01-03] MEDS: vancomycin HCL 750 MG in 0.9 % Sodium Chloride 250 ML 265 MG IV (04:59)
[2024-01-03 06:32] LABS: Anion Gap 14 (12-20); Blood Urea Nitrogen 23 mg/dL (9-16); C Reactive Protein 9.91 mg/dL (< or = 0.50); Carbon Dioxide 21 mmol/L (22-29); Chloride 107 mmol/L (96-108); Creatinine Clr Calc Pharmacy 51.7; Estimated Glomerular Filt Rate 43; Glucose Random 165 mg/dL (60-115); Potassium 4.3 mmol/L (3.3-5.1); Sodium 138 mmol/L (135-145)
[2024-01-03 07:05] VITALS: BP 126/60; PULSE 68; RESP 14; TEMP 36.8; O2SAT 96
[2024-01-03 07:30] LABS: Glucose, Whole Blood 145 mg/dL (60-115)
[2024-01-03] MEDS: hydrALAZINE HCl 50 MG TABLET PO (08:36)
[2024-01-03] MEDS: Sertraline HCL 50 MG TABLET PO (08:37)
[2024-01-03] MEDS: 0.9 % Sodium Chloride Flush 3 ML SYRINGE IVFLUSH ×3 (08:37→21:18)
[2024-01-03] MEDS: Loratadine 10 MG TABLET PO (08:37)
[2024-01-03 11:38] LABS: Glucose, Whole Blood 165 mg/dL (60-115)
[2024-01-03] MEDS: Insulin Lispro 100 UNIT/ML 3 ML VIAL SUBCUT ×3 (11:49→21:18)
--- NOTE | 2024-01-03 12:41 | MHC.CM.PN ---
Per MD rounds patient not medically cleared. Will require 2 IV abx x 6 weeks. Son unable to assist at home. Patient accepted bed at [facility] pending auth.
--- NOTE | 2024-01-03 14:59 | HE.PHANOTE ---
Re: Jeremias Renal function is improving. Trough returned at 12.0. Continue dose of 750 mg q12h with predicted AUC 439, predicted trough 14.2. Next trough 01/03 @ 1400.
--- NOTE | 2024-01-03 15:48 | HO.WOUND ---
Wound Consult: Attempted follow up 63yr old?female admitted to [facility] on 12/31/23 - See progress notes and H&P for detailed history.? Wound consult follow up for Right foot diabetic Wounds and Buttock wound attempted however arrival to bedside patient was still off unit at PICC line placement. Will attempt follow up and buttock assessment tomorrow. ?
--- NOTE | 2024-01-03 15:53 | HO.PICC ---
[facility]: right foot osteomyelitis Indication: 6 weeks of antibiotics Pertinent Labs: Reviewed Technique: Following informed consent including risks, benefits and alternatives and using sterile technique including cap and mask, sterile gown, glove and drape, the right arm was prepped and draped in the usual sterile fashion of full barrier technique with CHG. Following completion of Temple Protocol the skin and soft tissues were anesthetized with 1% Lidocaine plain. Using ultrasound guidance, the right cephalic vein access was obtained in a single attempt by this RN. Over an 0.018 wire through peel-away sheath, a 4 [place] single lumen PASV PICC line was positioned. Catheter length is 38 cm internal length, the external length is at the 0 external parvin, for a total trimmed length of 38 cm. The procedure was performed in 272 . Tip verification was performed by Deuce Fraser with Sherlock 3CG. Tip located in SVC. Ultrasound was used to document vein patency and for needle entry. A formal ultrasound picture and cardiac rhythm strip was recorded. [employer] has released the line for use and it is currently dressed with a StatLock, Tegaderm, and CHG disc. Verification has been performed for blood return and line patency. Arm Circumference: 35.5 cm Equipment: [employer] PowerPICC SOLO Catheter with Sherlock 3CG Tip Catheter Type: 4 [place] single lumen PASV PICC Lot #: [id number]
--- NOTE | 2024-01-03 16:02 | HO.PM.IMPN ---
Subjective Subjective Date of Service: 01/03/24 Interval History: Being followed for right foot cellulitis/osteomyelitis with right foot wound. Denies acute symptoms no foot pain, no fevers, no chills, blood cultures x2 negative for 48 hours on IV vancomycin and IV cefazolin, no acute events overnight. Review of Systems all other symptoms reviewed and are negative. Physical Exam Vital Signs: Vital Signs: Last Vital Signs Temp 98.2 F 01/03/24 07:05 Pulse 68 01/03/24 07:05 Resp 14 01/03/24 07:05 BP 126/60 01/03/24 07:05 Pulse Ox 96 01/03/24 07:05 O2 Del Method Room Air 01/03/24 07:05 BMI result Body Mass Index 33.0 Const: Other: General awake alert x3 ,in no acute distress. Moist mucous membrane, no lesions oral cavity Neck no JVD. CVS regular rate rhythm, Respiratory lungs clear to auscultation, no respiratory distress, no wheeze, no rhonchi. Gastrointestinal abdomen soft, non tender, bowel sounds audible. Extremities left foot normal examination, no edema Right foot dressing in place, swelling of right leg improving, redness resolved Neuro awake alert x3, non focal,speech clear. Psych appropriate affect Objective Data Active Medications Acetaminophen (Acetaminophen 325 Mg Tablet) 650 mg PO Q6H PRN PRN Reason: Pain, Mild (Pain Scale 1-3), fever or headache Last Admin: 01/01/24 14:38 Dose: 650 mg Documented By: DELANEY Calcium Carbonate (Calcium Carbonate 750 Mg Tab.Chew) 750 mg PO Q4H PRN PRN Reason: Heartburn Cefazolin Sodium (Cefazolin Sodium 1 Gm Vial) 1 gm IVPUSH Q8H [facility] Last Admin: 01/03/24 08:38 Dose: 1 gm Documented By: ANGELA Glucose (Glucose Gel 15 Gm Gel..Gram.) 15 gm PO Q15M PRN; Protocol PRN Reason: per Hypoglycemia Standing Ord. Hydralazine HCl (Hydralazine Hcl 50 Mg Tablet) 50 mg PO BID [facility]; Protocol Last Admin: 01/03/24 08:36 Dose: 50 mg Documented By: ANGELA Dextrose (D10) 250 mls @ 750 mls/hr IV Q15M PRN; Protocol PRN Reason: per Hypoglycemia Standing Ord. Insulin Glargine (Insulin Glargine,Hum.Rec.Anlog 100 Unit/Ml 10 Ml Vial) 20 unit SUBCUT BEDTIME [facility] Last Admin: 01/02/24 21:39 Dose: 20 unit Documented By: TIFFANIE Insulin Human Lispro (Insulin Lispro 100 Unit/Ml 3 Ml Vial) 0 unit SUBCUT QIDACHS [facility]; Protocol Last Admin: 01/03/24 11:49 Dose: 2 unit Documented By: ANGELA Loratadine (Loratadine 10 Mg Tablet) 10 mg PO DAILY [facility] Last Admin: 01/03/24 08:37 Dose: 10 mg Documented By: ANGELA Magnesium Hydroxide (Milk Of Magnesia 30 Ml Oral.Susp) 30 ml PO DAILY PRN PRN Reason: Constipation Melatonin (Melatonin 3 Mg Tablet) 6 mg PO BEDTIME PRN PRN Reason: Insomnia Morphine Sulfate (Morphine Sulfate 4 Mg/Ml Cartridge) 3 mg IVPUSH Q4H PRN; Protocol PRN Reason: Pain, Severe (Pain Scale 7-10) Ondansetron HCl (Ondansetron Hcl 4 Mg/2 Ml Vial) 4 mg IVPUSH Q8H PRN PRN Reason: Nausea and Vomiting Oxycodone HCl (Oxycodone Hcl Immed Release 5 Mg Tablet) 5 mg PO Q6H PRN PRN Reason: Pain, Moderate(Pain Scale 4-6) Pharmacy Consult (Consult Rx Vancomycin Dosing) 1 each MISCELLANE DAILY PRN PRN Reason: Consult order Senna (Sennosides 8.6 Mg Tablet) 8.6 mg PO DAILY PRN PRN Reason: Constipation Sertraline HCl (Sertraline Hcl 50 Mg Tablet) 50 mg PO DAILY [facility] Last Admin: 01/03/24 08:37 Dose: 50 mg Documented By: ANGELA Sodium Chloride (0.9 % Sodium Chloride Flush 3 Ml Syringe) 3 ml IVFLUSH QSHIFT [facility] Last Admin: 01/03/24 08:37 Dose: 3 ml Documented By: ANGELA Labs 01/02/24 05:45 01/03/24 05:27 Labs: Laboratory Results - last 24 hr 01/02/24 01/02/24 01/03/24 17:12 19:47 05:27 Hold Purple Top SEE NOTE Anion Gap 14 Estim Creat Clear Calc 51.7 Estimated GFR 43 POC Glucose 166 H 147 H Random Glucose 165 H Calcium 9.0 C-Reactive Protein 9.91 H Random Vancomycin 01/03/24 01/03/24 01/03/24 07:15 11:34 14:15 Hold Purple Top Anion Gap Estim Creat Clear Calc Estimated GFR POC Glucose 145 H 165 H Random Glucose Calcium C-Reactive Protein Random Vancomycin 12.0 L Microbiology Microbiology Results: Microbiology 12/31/23 15:42 Blood Culture - Preliminary Blood - Venous No growth after 48 hours. 12/31/23 14:49 Blood Culture - Preliminary Blood - Venous No growth after 48 hours. Assessment and Plan (1) Diabetic foot infection: Status: Acute Plan 63-year-old female patient with past medical history of chronic kidney disease stage 3 due to diabetic nephropathy, diabetes mellitus, hyperlipidemia, hypertension recently admitted for mechanical fall complicated with acute left femoral neck fracture status post surgery, presented with subjective fevers, right foot cramps redness and foul drainage Chronic right foot diabetic wound/with possible osteomyelitis with surrounding cellulitis/abscess with sepsis Noted to have leukocytosis, subjective fevers, tachycardia on admission Chronically elevated ESR and CRP, blood cultures x2 negative X-ray foot showed soft tissue wound right foot plantar surface with adjacent soft tissue gas, mild cortical erosion with possibility of osteomyelitis not excluded MRI recommended on IV vancomycin and IV Ancef, since prior foot wound grew Proteus sensitive to cefazolin Underwent bedside debridement of plantar wound and drainage of bulla with abscess Id initially recommend 6 weeks of IV vancomycin and Ancef, today on rediscussion ID recommends IV Ancef t.i.d. x6 weeks WBC normalized, CRP trending down PICC line placed today, patient agreed for rehab placement Diabetes with hyperglycemia , stable blood sugar, continue Lantus 20 units, on diabetic diet and insulin sliding scale monitor point of care Acute on CKD 3 Resolved, status post IV fluids Hyperlipidemia Continue statin 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 Continue hydralazine 25 b.i.d. , resume losartan low-dose 50 mg (home dose 100 mg) was held due to VENKATESH, recommend outpatient bmp in 1 week started on . Class 1 obesity will recommend low-calorie diet DVT prophylaxis Full code patient will require continued inpatient hospitalization for management of acute on chronic right foot osteomyelitis with surrounding cellulitis and possible abscess and wound care on IV antibiotics. Quality Stroke Does the patient have a stroke diagnosis?: No VTE Prior VTE?: No VTE Risk Level:: Medical - moderate - high VTE Device Contraindication: Treatment Not Indicated VTE Drug Contraindication: N/A - Med Ordered
--- NOTE | 2024-01-03 16:07 | PM.EVENT ---
Event Note Date of Service: 01/03/24 Event Note: Came in to do a wound check Patient however has been in radiology for a PICC line Continue wet-to-dry dressings for now Discussed with wound care nurse Jessie as well Time Spent With Patient Time: Total time managing care of this patient today ____ minutes.
[2024-01-03 16:32] LABS: Glucose, Whole Blood 155 mg/dL (60-115)
[2024-01-03 17:21] VITALS: BP 136/68; PULSE 68; RESP 16; TEMP 36.9; O2SAT 96
[2024-01-03 19:07] VITALS: BP 163/70; PULSE 73; RESP 17; TEMP 36.1; O2SAT 95
[2024-01-03 21:06] LABS: Glucose, Whole Blood 209 mg/dL (60-115)
[2024-01-03] MEDS: hydrALAZINE HCl 25 MG TABLET PO (21:17)
[2024-01-03] MEDS: Insulin Glargine,Hum.rec.anlog 100 UNIT/ML 10 ML VIAL 20 UNIT SUBCUT (21:18)
[2024-01-04] MEDS: ceFAZolin Sodium 1 GM VIAL IVPUSH ×2 (00:35→07:41)
[2024-01-04 03:09] VITALS: BP 150/70; PULSE 72; RESP 17; TEMP 36.3; O2SAT 94
[2024-01-04 06:51] LABS: Creatinine Clr Calc Pharmacy 58.2; Estimated Glomerular Filt Rate 50
[2024-01-04 07:13] VITALS: BP 179/70; PULSE 85; RESP 16; TEMP 36.8; O2SAT 96
[2024-01-04 07:24] LABS: Glucose, Whole Blood 129 mg/dL (60-115)
[2024-01-04] MEDS: 0.9 % Sodium Chloride Flush 3 ML SYRINGE IVFLUSH (07:41)
[2024-01-04] MEDS: Sertraline HCL 50 MG TABLET PO (07:42)
[2024-01-04] MEDS: hydrALAZINE HCl 25 MG TABLET PO (07:42)
[2024-01-04] MEDS: Loratadine 10 MG TABLET PO (07:42)
[2024-01-04] MEDS: Losartan Potassium 50 MG TABLET PO (07:42)
--- NOTE | 2024-01-04 08:15 | P.PNGS_ITS ---
Subjective Subjective Date of Service: 01/04/24 Interval history: No new complaints Some pain on the right foot PICC line done yesterday Physical Exam 2 Vital Signs: Vital Signs: Last Vital Signs Temp 98.2 F 01/04/24 07:13 Pulse 85 01/04/24 07:13 Resp 16 01/04/24 07:13 BP 179/70 H 01/04/24 07:13 Pulse Ox 96 01/04/24 07:13 O2 Del Method Room Air 01/04/24 07:13 BMI result Body Mass Index 33.0 Const: General: comfortable and no acute distress Resp: Effort & Inspection: normal respiratory effort Cardio: Rate: regular rate Extrem: Other: Ulcer on lateral aspect of forefoot with thick callus and ulcer on the plantar aspect, right Objective Data Active Medications Acetaminophen (Acetaminophen 325 Mg Tablet) 650 mg PO Q6H PRN PRN Reason: Pain, Mild (Pain Scale 1-3), fever or headache Last Admin: 01/01/24 14:38 Dose: 650 mg Documented By: DELANEY Calcium Carbonate (Calcium Carbonate 750 Mg Tab.Chew) 750 mg PO Q4H PRN PRN Reason: Heartburn Cefazolin Sodium (Cefazolin Sodium 1 Gm Vial) 1 gm IVPUSH Q8H [facility] Last Admin: 01/04/24 07:41 Dose: 1 gm Documented By: OBEY Glucose (Glucose Gel 15 Gm Gel..Gram.) 15 gm PO Q15M PRN; Protocol PRN Reason: per Hypoglycemia Standing Ord. Hydralazine HCl (Hydralazine Hcl 25 Mg Tablet) 25 mg PO BID [facility]; Protocol Last Admin: 01/04/24 07:42 Dose: 25 mg Documented By: OBEY Dextrose (D10) 250 mls @ 750 mls/hr IV Q15M PRN; Protocol PRN Reason: per Hypoglycemia Standing Ord. Insulin Glargine (Insulin Glargine,Hum.Rec.Anlog 100 Unit/Ml 10 Ml Vial) 20 unit SUBCUT BEDTIME [facility] Last Admin: 01/03/24 21:18 Dose: 20 unit Documented By: ITFFANIE Insulin Human Lispro (Insulin Lispro 100 Unit/Ml 3 Ml Vial) 0 unit SUBCUT QIDACHS [facility]; Protocol Last Admin: 01/04/24 07:25 Dose: Not Given Documented By: OBEY Non-Admin Reason: No Insulin Coverage Loratadine (Loratadine 10 Mg Tablet) 10 mg PO DAILY [facility] Last Admin: 01/04/24 07:42 Dose: 10 mg Documented By: OBEY Losartan Potassium (Losartan Potassium 50 Mg Tablet) 50 mg PO DAILY [facility]; Protocol Last Admin: 01/04/24 07:42 Dose: 50 mg Documented By: OBEY Magnesium Hydroxide (Milk Of Magnesia 30 Ml Oral.Susp) 30 ml PO DAILY PRN PRN Reason: Constipation Melatonin (Melatonin 3 Mg Tablet) 6 mg PO BEDTIME PRN PRN Reason: Insomnia Morphine Sulfate (Morphine Sulfate 4 Mg/Ml Cartridge) 3 mg IVPUSH Q4H PRN; Protocol PRN Reason: Pain, Severe (Pain Scale 7-10) Ondansetron HCl (Ondansetron Hcl 4 Mg/2 Ml Vial) 4 mg IVPUSH Q8H PRN PRN Reason: Nausea and Vomiting Oxycodone HCl (Oxycodone Hcl Immed Release 5 Mg Tablet) 5 mg PO Q6H PRN PRN Reason: Pain, Moderate(Pain Scale 4-6) Senna (Sennosides 8.6 Mg Tablet) 8.6 mg PO DAILY PRN PRN Reason: Constipation Sertraline HCl (Sertraline Hcl 50 Mg Tablet) 50 mg PO DAILY [facility] Last Admin: 01/04/24 07:42 Dose: 50 mg Documented By: OBEY Sodium Chloride (0.9 % Sodium Chloride Flush 3 Ml Syringe) 3 ml IVFLUSH [facility] Last Admin: 01/04/24 07:41 Dose: 3 ml Documented By: OBEY Labs 01/02/24 05:45 01/04/24 05:26 Labs: Laboratory Results - last 24 hr 01/03/24 01/03/24 01/03/24 11:34 14:15 16:21 Estim Creat Clear Calc Estimated GFR POC Glucose 165 H 155 H Random Vancomycin 12.0 L 01/03/24 01/04/24 01/04/24 20:04 05:26 07:19 Estim Creat Clear Calc 58.2 Estimated GFR 50 POC Glucose 209 H 129 H Random Vancomycin Laboratory Results WBC 10.5 X10*3/uL (4.8-10.8) 01/02/24 05:45 RBC 3.17 X10*6/uL (4.20-5.50) L 01/02/24 05:45 Hgb 9.0 g/dl (12.0-16.0) L 01/02/24 05:45 Hct 27.8 % (37.0-47.0) L 01/02/24 05:45 MCV 87.7 fL (80.0-98.0) 01/02/24 05:45 MCH 28.4 pg (27.0-33.0) 01/02/24 05:45 MCHC 32.4 g/dl (31.0-35.0) 01/02/24 05:45 RDW 12.9 % (11.0-16.0) 01/02/24 05:45 Plt Count 303 X10*3/uL (160-400) 01/02/24 05:45 MPV 9.8 fL (9.4-12.3) 01/02/24 05:45 Immature Gran % (Auto) 0.6 % (0.0-0.4) H 12/31/23 14:49 Neut % (Auto) 87.2 % (45-73) H 12/31/23 14:49 Lymph % (Auto) 4.9 % (20-40) L 12/31/23 14:49 Cotton % (Auto) 7.1 % (2-11) 12/31/23 14:49 Eos % (Auto) 0.0 % (0-4) 12/31/23 14:49 Baso % (Auto) 0.2 % (0-2) 12/31/23 14:49 Lymph # (Auto) 0.8 X10*3/uL (1.2-4.9) L 12/31/23 14:49 Cotton # (Auto) 1.2 X10*3/uL (0.1-1.2) 12/31/23 14:49 Eos # (Auto) 0.0 X10*3/uL (0.0-0.4) 12/31/23 14:49 Baso # (Auto) 0.0 X10*3/uL (0.0-0.2) 12/31/23 14:49 Abs Immat Gran (auto) 0.11 X10*3/uL (0.00-0.03) H 12/31/23 14:49 Absolute Neuts (auto) 14.8 x10*3/uL (2.0-8.3) H 12/31/23 14:49 Absolute Nucleated RBC 0.000 X10*3/uL (0.0-0.012) 01/02/24 05:45 Nucleated RBC % (auto) 0.0 /100WBC (0.0-0.2) 01/02/24 05:45 ESR 106 MM/HR (0-20) H 12/31/23 14:49 Hold Purple Top SEE NOTE 01/03/24 05:27 Sodium 138 mmol/L (135-145) 01/03/24 05:27 Potassium 4.3 mmol/L (3.3-5.1) 01/03/24 05:27 Chloride 107 mmol/L (96-108) 01/03/24 05:27 Carbon Dioxide 21 mmol/L (22-29) L 01/03/24 05:27 Anion Gap 14 (12-20) 01/03/24 05:27 BUN 23 mg/dL (9-16) H 01/03/24 05:27 Creatinine 1.11 mg/dL (0.5-1.4) 01/04/24 05:26 Estim Creat Clear Calc 58.2 01/04/24 05:26 Estimated GFR 50 01/04/24 05:26 POC Glucose 129 mg/dL (60-115) H 01/04/24 07:19 Random Glucose 165 mg/dL (60-115) H 01/03/24 05:27 Lactic Acid 1.5 mmol/L (0.5-2.0) 12/31/23 14:49 Calcium 9.0 mg/dL (8.4-10.2) 01/03/24 05:27 Total Bilirubin 0.6 mg/dL (0.0-1.0) 12/31/23 14:49 AST 23 U/L (5-31) 12/31/23 14:49 ALT 15 U/L (0-31) 12/31/23 14:49 Alkaline Phosphatase 88 U/L (39-117) 12/31/23 14:49 C-Reactive Protein 9.91 mg/dL (< or = 0.50) H 11/20/24 05:27 Total Protein 7.8 g/dL (6.5-8.0) 12/31/23 14:49 Albumin 3.6 g/dL (3.5-5.0) 12/31/23 14:49 Random Vancomycin 12.0 mcg/mL (15-20) L 01/03/24 14:15 Impressions Foot X-Ray 12/31/23 14:34 IMPRESSION: Lisfranc changes and a rocker bottom deformity are redemonstrated. There is a plantar hindfoot soft tissue wound, with adjacent soft tissue gas. Mild cortical erosion is questioned of the adjacent distal calcaneal undersurface. The possibility of osteomyelitis is not excluded. This could be further evaluated with MRI, if clinically indicated. Electronically signed by: Jesus Mejia MD 12/31/2023 04:17 PM [facility] Procedures Date of Service Date of Service: 01/04/24 Progress Note: A&P Assessment and plan (1) Diabetic foot infection: Status: Acute Assessment and Plan: I have changed her dressings Wet-to-dry applied IV antibiotic Clinically looks well No fever Time Spent With Patient Time: Total time managing care of this patient today ____ minutes. Quality Stroke Does the patient have a stroke diagnosis?: No VTE Prior VTE?: No VTE Risk Level:: Medical - moderate - high VTE Device Contraindication: Treatment Not Indicated VTE Drug Contraindication: N/A - Med Ordered
--- NOTE | 2024-01-04 11:19 | MHC.CM.PN ---
Patient medically cleared for dc to SNF for IV abx TID. [facility] has obtained auth. S transport scheduled for 1pm. MD EDOUARD and patient aware. Patient states she is agreeable to plan and will inform her family.
[2024-01-04 11:21] LABS: Glucose, Whole Blood 207 mg/dL (60-115)
[2024-01-04] MEDS: Insulin Lispro 100 UNIT/ML 3 ML VIAL SUBCUT (11:37)
--- NOTE | 2024-01-04 11:40 | P.DS_ITS ---
DS: Providers Provider Date of Service: 01/04/24 Date of admission: 12/31/23 17:06 Primary care physician: Kristin Bellamy MD Consults: 12/31/23 17:09 Consult to General Surgery Routine Consulting Provider: Unruly Mcbride Reason for consultation: rt foot wound/abscess Has provider been notified: No 01/01/24 08:30 Consult to Wound Care Routine Reason for consultation: foot wound 01/01/24 13:21 Consult to Infectious Diseases Routine Consulting Provider: [facility] [place] [facility] Reason for consultation: rt foot wound ? osteo 01/02/24 17:16 Consult to Wound Care Routine Reason for consultation: DM Foot Ulcer 01/03/24 16:03 Consult to Wound Care Routine Reason for consultation: rt buttock wound DS: Diagnosis Discharge Diagnosis (1) Diabetic foot infection: Status: Acute DS: Summary Hospital Course Hospital Course: Admission hpi Chief Complaint: Right foot redness/chronic wound with foul drainage 63-year-old female with past medical history of chronic kidney disease stage 3, diabetes mellitus, hyperlipidemia, hypertension recently discharged from [facility] on November 30 after receiving treatment for left femoral neck fracture patient was subsequently discharged to rehab facility and was sent home from rehab on December 18, she is being followed by [facility] on Wednesdays and Fridays, was unable to get an outpatient appointment with wound clinic but since yesterday started feeling feverish, vomited this morning, noticed to have cramping pain in right foot with worsening redness and foul odor therefore came to emergency room for evaluation in the ED noted to have a elevated WBC count of 17,000, chronically elevated ESR and CRP was noted x-ray of foot showed soft tissue wound on plantar surface with adjacent soft tissue gas, mild cortical erosion of the adjacent distal calcaneus under surface raising possibility of osteomyelitis, MRI recommended for further evaluation, will admit patient for right foot osteomyelitis with surrounding cellulitis and possible abscess, received IV vancomycin and IV Ancef in the ED will obtain surgical consultation. Hospital course: A 63-year-old female with a medical history of chronic kidney disease stage 3 secondary to diabetic nephropathy, diabetes mellitus, hyperlipidemia, and hypertension, recently hospitalized for a mechanical fall resulting in an acute left femoral neck fracture (status post-surgical repair), presented with subjective fevers, right foot cramps, redness, and foul drainage. She was found to have a chronic diabetic right foot wound with acute osteom yelitis and cellulitis, associated with elevated ESR/CRP and increased WBC. Blood cultures were negative. A foot X-ray revealed a soft tissue wound on the plantar surface with adjacent soft tissue gas and mild cortical erosion, suggesting possible osteomyelitis. MRI was not performed, as it would not alter management. During hospitalization, she was treated with IV vancomycin and Ancef, as a prior foot wound culture grew Proteus sensitive to Cefazolin. The patient underwent bedside debridement of the plantar wound and drainage of a bulla with an abscess by the surgical team. Initially, Infectious Disease recommended 6 weeks of IV vancomycin and Ancef; however, the recommendation was adjusted to IV Ancef 1 gram TID for 6 weeks ending February 12 2024. A PICC line was inserted on 01/02 to facilitate treatment. Diabetes with hyperglycemia , stable blood sugar, continue Lantus at 23 units, diabetic diet and insulin sliding scale monitor point of care VENKATESH on CKD 3, resolved with IVF Hyperlipidemia Continue statin 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 Continue hydralazine 25 b.i.d (started in hospital) , continue Losartan at 50 mg daily (home dose 100 mg) was held and reduced due to VENKATESH Dispo: to STR Time Attestation Discharge Coordination Time (in mins): 45 Quality: Safe Use of Opioids Does Pt have an Active Cancer Diagnosis on the Problem List?: No Quality: Stroke Does the patient have a stroke diagnosis?: No Physical Exam Vital Signs: Vital Signs: Last Vital Signs Temp 98.2 F 01/04/24 07:13 Pulse 85 01/04/24 07:13 Resp 16 01/04/24 07:13 BP 179/70 H 01/04/24 07:13 Pulse Ox 96 01/04/24 07:13 O2 Del Method Room Air 01/04/24 07:13 BMI result Body Mass Index 33.0 DS: Data Data Completed and Pending Completed studies during hospitalization [Text1]: Procedures Excision of Right Foot Subcutaneous Tissue and Fascia, Open Approach (08/19/20) Replacement of Left Hip Joint, Femoral Surface with Synthetic Substitute, Uncemented, Open Approach (11/28/23) Labs on day of discharge: Laboratory Results - last 24 hr 01/03/24 01/03/24 01/03/24 14:15 16:21 20:04 Creatinine Estim Creat Clear Calc Estimated GFR POC Glucose 155 H 209 H Random Vancomycin 12.0 L 01/04/24 01/04/24 01/04/24 05:26 07:19 11:17 Creatinine 1.11 Estim Creat Clear Calc 58.2 Estimated GFR 50 POC Glucose 129 H 207 H Random Vancomycin Preliminary micro results at discharge 12/31/23 15:42 Blood Culture - Preliminary Blood - Venous No growth after 48 hours. 12/31/23 14:49 Blood Culture - Preliminary Blood - Venous No growth after 48 hours. Discharge Plan Discharge Anticipated Discharge Date/Time: 01/04/24 12:10 Patient Disposition: Xfer [facility] Discharge Diagnosis: Acute osteomyelitis of the foot related diabetic foot ulcer Referrals: Diane Cruz [place] [Outside] - 1 Week Kristin Bellamy MD [Primary Care Provider] - 1 Week Discharge Medications: New losartan 50 mg Tablet 50 mg PO DAILY Qty: 30 0RF Protocol: Hold for SBP< HOLD for SBP < : 90 insulin glargine [Lantus U-100 Insulin] 100 unit/mL Solution 20 unit subcut BEDTIME Qty: 10 0RF insulin lispro [Admelog U-100 Insulin lispro] 100 unit/mL Solution See Protocol subcut QIDACHS Qty: 10 0RF Protocol: Insulin Correction Scale Less than or equal to 110 ---- Give (units): 0 111 to 150 Give (units): 0 151 to 200 Give (units): 2 201 to 250 Give (units): 4 251 to 300 Give (units): 6 301 to 350 Give (units): 8 Greater than 350 Give (units): 10 Call if Blood Glucose > : 350 Rx Instructions: BG <111 0 units, 111-150 - 0 units, 151-200 2 units, 201-250 4 units, 251-300 6 units, 301-350 8 units, >350 10 units cefazolin 1 gram Recon Soln 1 g IVPUSH Q8H 42 Days Qty: 126 0RF Rx Instructions: Ending February 12 2024 hydralazine 25 mg Tablet 25 mg PO BID Qty: 60 0RF Protocol: Hold for SBP< HOLD for SBP < : 90 Continued (DME) FreeStyle Amber 14 Day Sensor Kit topical Q2W Qty: 2 11RF Rx Instructions: As directed (DME) pen needle, diabetic [BD Adela 2nd Gen Pen Needle] 32 gauge x 5/32 needle MISCELLANEOUS 5XD Qty: 150 6RF Rx Instructions: As directed 5 x/day ferrous sulfate 325 mg (65 mg iron) tablet,delayed release (DR/EC) 325 mg PO QMONTH sennosides [senna] 8.6 mg Tablet 8.6 mg PO DAILY PRN (Reason: Constipation) loratadine 10 mg Tablet 10 mg PO DAILY cholecalciferol (vitamin D3) [Vitamin D3] 50 mcg (2,000 unit) Capsule 50 mcg PO DAILY (DME) blood-glucose meter [FreeStyle Lite Meter] Kit See Rx Instructions .ROUTE .MEDSUPPLY Qty: 1 0RF Rx Instructions: As directed (DME) FreeStyle Lite Strips Strip See Rx Instructions .ROUTE .MEDSUPPLY Qty: 100 11RF Rx Instructions: As directed three times a day (DME) lancets [FreeStyle Lancets] 28 gauge misc See Rx Instructions .ROUTE .MEDSUPPLY Qty: 100 11RF Rx Instructions: Three times a day rosuvastatin 5 mg tablet 5 mg PO DAILY sertraline 50 mg tablet 50 mg PO DAILY Discontinued Humalog KwikPen Insulin 200 unit/mL (3 mL) insulin pen 8 unit subcut TIDAC insulin glargine [Lantus Solostar U-100 Insulin] 100 unit/mL (3 mL) insulin pen 36 unit subcut DAILY losartan 100 mg tablet 100 mg PO DAILY Discharge Orders: Discharge Order (Routine); Ordered 01/04/24 Ordered By: Aleksey Metzger Diet: Diabetic diet Activity on Discharge: As tolerated Stand Alone Forms: Patient Portal Discharge page Print Language: Latvian Care Plan Goals: recovery from Osteomylitis of the foot Health Concerns: Osteomylitis of the foot Plan of Treatment: Take Ancef 1 gram q8 hours for 42 days, ending February 12 2024 Lantus dose reduced to 20 units daily Humalog changed to sliding scale Losartan dose reduced to 50 mg daily from 100 mg Hydralazine 25 mg twice a day added Check CBC and BMP, LFTs Weeekly to every 10 days while on Ancef Assessment: See Above
--- NOTE | 2024-01-04 12:26 | HO.WOUND ---
Wound Consult: Follow up 63yr old?[place] [facility] - See progress notes and H&P for detailed history.? Wound consult placed for Right foot diabetic Wounds.? Patient agreeable to assessment and photo documentation.? Patient repors she has followed with wound clinic in the past and plan to return at time of d/c. Right Lateral Wound 01/02/24 right Lateral Foot 01/04/24 Etiology: ?Diabetic wound Measurements: 2cm x 2.2cm x 1.5cm Wound Bed: less yellow slough noted - probes to smooth bone Drainage / Odor: no odor serousang drainage no purulence noted Edges: ? well defined but not adherent Joyce wound: ? pink erythema some swelling noted Pain: denies Goals of Treatment: ?Moisture management with Durafiber AG Right Plantar Wound Etiology: ?Diabetic wound Measurements: 0.3cm x 0.3cm x 1cm Wound Bed: pink wound bed with dry stable black scab Drainage / Odor: none noted Edges: ? well defined but not adherent and callused Joyce wound: ? dry dark callused tissue Pain: denies Goals of Treatment: ?Durafiber AG for moisture management and autolytic debridement Etiology: Suspect MASD - Not consistent with pressure Measurements: 3cm x 4cm x 0cm Wound Bed:intact pink light purple blanchable tissue Drainage / Odor: none noted Edges: ? irregular Joyce wound: ?MASD Pain: denies Goals of Treatment: barrier cream to protect from friction and moisture Recommendations: 1. Turn and Reposition every 2 hours and as needed for patient comfort.? Use pillows or wedges to support off loading positions. 2. Off Load all bony prominences with use of pillows and heel boots if needed.? Apply Preventative foams where needed. ? 3. Monitor for incontinence and moisture control, use barrier creams when needed for prevention and treatment. 4. Provide adequate and supplemental nutrition.? 5. When applicable maintain blood glucose levels per Providers order. 6. Right Lateral Foot and Right Plantar wound - Off Load Pressure - Cleanse and irrigate with NS, pat dry. Apply skin prep to periwound, lightly pack wound bed with Durafiber AG, cover with dry gauze, ABD pad and wrap. Change Every other day. 7. Buttocks - Off Load Pressure - Routine cleansing with PH balanced wipes or spray. Pat dry. Apply barrier cream to protect from friction and moisture. Apply twice a day and after episodes of incontinence. Use waffle cushion when up to chair and change brief once wet. Recommend follow up out patient Wound Clinic at [address] [place] [id number] and to call for an appointment at time of discharge. [phone].? Re-consult wound care Nurse for wound deterioration or wound changes.
--- NOTE | 2024-01-04 13:06 | PC.NURSE ---
Nursing report called to Vaibhav Hopkins at [facility] [phone]
== END 2024-01-04 13:34 | disposition skilled nursing facility (03) | DRG 720 ==
LOC: HO.ED 16:25 → HO.EDOVER 17:14 → HO.S3 01-02 15:47
PROVIDERS: Physician Assistant; Admitting Provider Hospitalist; Emergency Provider Emergency Medicine Emergency Medical Services; PCP Internal Medicine; Visit Provider Internal Medicine
DX: A41.9 Sepsis, unspecified organism (principal); E11.22 Type 2 diabetes mellitus with diabetic chronic kidney disease; E11.621 Type 2 diabetes mellitus with foot ulcer; L97.419 Non-pressure chronic ulcer of right heel and midfoot with unspecified severity; M86.171 Other acute osteomyelitis, right ankle and foot; L02.611 Cutaneous abscess of right foot; E11.65 Type 2 diabetes mellitus with hyperglycemia; E66.811 Obesity, class 1; M86.671 Other chronic osteomyelitis, right ankle and foot; E78.5 Hyperlipidemia, unspecified; I12.9 Hypertensive chronic kidney disease with stage 1 through stage 4 chronic kidney disease, or unspecified chronic kidney disease; Z68.33 Body mass index [BMI] 33.0-33.9, adult; Z71.3 Dietary counseling and surveillance; N18.30 Chronic kidney disease, stage 3 unspecified; Z79.4 Long term (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 insulin; Z79.899 Other long term (current) drug therapy
CPT/HCPCS: 36415; 36573; 73620; 80048; 80053; 80202; 82565; 82947; 83605; 85025; 85027; 85652; 86140; 87040; 99285; C1751; J0690; J3370

== ENCOUNTER → 2023-12-31 17:06 | Outpatient (BNV) | payer BC, SELFPAY | PROVIDERS: Admitting Provider Hospitalist; Emergency Provider Emergency Medicine Emergency Medical Services; PCP Internal Medicine; Visit Provider Internal Medicine | DX: E11.628 Type 2 diabetes mellitus with other skin complications (principal); L08.9 Local infection of the skin and subcutaneous tissue, unspecified | CPT/HCPCS: 99222 ==

== ENCOUNTER → 2023-12-31 17:06 | Outpatient (BNV) | payer BC, SELFPAY | PROVIDERS: Admitting Provider Hospitalist; Emergency Provider Emergency Medicine Emergency Medical Services; PCP Internal Medicine; Visit Provider Hospitalist | DX: E11.628 Type 2 diabetes mellitus with other skin complications (principal); L08.9 Local infection of the skin and subcutaneous tissue, unspecified; I12.9 Hypertensive chronic kidney disease with stage 1 through stage 4 chronic kidney disease, or unspecified chronic kidney disease; E11.65 Type 2 diabetes mellitus with hyperglycemia | CPT/HCPCS: 99223; 99232; 99239 ==

== ENCOUNTER → 2023-12-31 17:06 | Outpatient (BNV) | payer BC, SELFPAY | PROVIDERS: Admitting Provider Hospitalist; Emergency Provider Emergency Medicine Emergency Medical Services; PCP Internal Medicine; Visit Provider Surgery | DX: E11.628 Type 2 diabetes mellitus with other skin complications (principal); L08.9 Local infection of the skin and subcutaneous tissue, unspecified | CPT/HCPCS: 10160; 97597; 99222; 99232; 99499 ==

== ENCOUNTER 2024-01-10 11:11 | Outpatient (REF) | payer BC, SELFPAY ==
--- NOTE | ~2024-01-10 | XR_ITS ---
EXAMINATION: XR HIP, LEFT Pelvis: CLINICAL INFORMATION: M25.552 - Pain in left hip COMPARISON: Previous x-ray of the pelvis and left hip 12/15/2023 TECHNIQUE: Two views of the left hip. Single view of the pelvis FINDINGS: Left hip: Hemiarthroplasty of the left hip redemonstrated unchanged in appearance and alignment. Possible joint space narrowing unchanged. No periprostatic fracture or suspicious area of lucency. Right hip unremarkable. Symphysis pubis and sacroiliac joints unremarkable. Pelvic bones are unremarkable. Arterial calcification prominent unchanged. XR/XR hip LT min 2V IMPRESSION: Left hip: Stable appearance of hemiarthroplasty of the left hip without complication by x-ray. Possible cartilage loss in the left hip joint involving the acetabulum Remaining bone and joints in the pelvis normal. Calcific atherosclerotic disease unchanged. Electronically signed by: Bernard Chatterjee MD 01/14/2024 01:53 PM ISAIAH
== END 2024-01-10 11:12 | disposition home or self-care (01) ==
LOC: HO.HOSX 11:11
PROVIDERS: Visit Provider Physician Assistant
DX: M25.552 Pain in left hip (principal)
CPT/HCPCS: 73502

== ENCOUNTER 2024-01-10 12:54 | Outpatient (AMB) | payer BC, SELFPAY ==
--- NOTE | 2024-01-10 13:11 | A.OFFVIS_ITS ---
Intake Visit Reasons: PO: Left hip jonathan 11/29/23 NE Intake Note: Olga a 63 year old female who presents today in a wheel chair for a post operative visit s/p left hip jonathan, DOS 11/29/23 NE. Patient reports she is doing well, states some soreness in her leg. She continues to work with PT at facility. She has been admitted to a rehab facility due to a foot infection. Allergies amlodipine [From Norvasc] Allergy (Mild, Verified 01/10/24 13:16) Swelling Penicillins Allergy (Mild, Verified 01/10/24 13:16) Rash erythromycin base Allergy (Unknown, Verified 01/10/24 13:16) Unknown enoxaparin [From Lovenox] Allergy (Verified 01/10/24 13:16) Vomiting heparin Allergy (Verified 01/10/24 13:16) Vomiting clindamycin [CLINDAMYCIN] Adverse Reaction (Intermediate, Verified 01/10/24 13:16) Diarrhea NephrAmine Allergy (Unknown, Uncoded 01/10/24 13:16) Swelling HPI HPI PO: Left hip jonathan 11/29/23 NE: Details: 63-year-old female who returns to the office today for post-op left hip h emiarthroplasty, 11/29/[address] Cortez. She states she has improvement however she does have some soreness in her leg. She is able to ambulate on her leg. She continues to work with physical therapy at facility. She has been admitted to a rehab facility due to a foot infection. She is doing well otherwise and has no other concerns today. [facility] Medical History Diabetic foot infection Vertigo S/P angiogram of extremity (08/25/20) Diabetic foot ulcer associated with type 2 diabetes mellitus Cellulitis PAD (peripheral artery disease) Non-toxic multinodular goiter Dyslipidemia 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 Diabetic neuropathy associated with type 2 diabetes mellitus Diabetic retinopathy associated with type 2 diabetes mellitus Diabetic nephropathy associated with type 2 diabetes mellitus care home (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 insulin Diabetes type 2, uncontrolled Foot osteomyelitis, right Surgical History S/P thyroid biopsy Hx of cataract extraction Hx of LASIK Hx of eye surgery Hx of foot surgery Family History Father COPD (chronic obstructive pulmonary disease) Diabetes Mother Heart disease Social History Household Members: None Housing: House Are you a primary healthcare market consultant to a significant other at home: No Do you presently have visiting nurse or other home services: Yes Alcohol intake: current Alcohol intake frequency: does not drink Patient Tobacco Use Status: Former Tobacco user Years Smoked: 20 years e-Cigarette/Vaping Use: Never Used Advance Directives Date on File: 12/04/23 service: No Current occupational status: employed Review of Systems Const All systems reviewed & are unremarkable except as noted in HPI and below Physical Exam Extrem Other: Left hip: Incision clean, dry and intact. No redness or drainage. NVI. Results Reviewed Results Reviewed: Xrays were obtained in the office today and personally reviewed by me of the left hip show prosthesis without signs of loosening. Assessment & Plan Assessment & Plan (1) History of left hip hemiarthroplasty: Code(s): Z96.642 - Presence of left artificial hip joint Category: Surgical Plan She is going to continue working on physical therapy for gait training and strengthening. She will ambulate with a walker and transition to a cane as tolerated. I would like to see her back in 6 weeks with x-rays, sooner if needed. Orders: Orders XR hip LT min 2V Today M25.552 - Pain in left hip Patient Instructions: Scribed for Iggy Rivera PA-C, by Jay Littlejohn medical assistant ob gyn, on 01/10/2024 at 1:00 PM EST.? I, Iggy Rivera PA-C, have personally reviewed and agree with the information entered by the scribe. Coding Level of Care Code Global (33532) Diagnoses History of left hip hemiarthroplasty Z96.642
== END 2024-01-10 13:32 | disposition home or self-care (01) ==
PROVIDERS: PCP Internal Medicine; Visit Provider Physician Assistant
DX: Z96.642 Presence of left artificial hip joint (principal)
CPT/HCPCS: 99024

== ENCOUNTER 2024-02-21 08:38 | Outpatient (REF) | payer BC, SELFPAY | END 2024-02-21 08:39 | disposition home or self-care (01) | LOC: HO.HOSX 08:38 | PROVIDERS: Visit Provider Physician Assistant | DX: Z13.89 Encounter for screening for other disorder (principal) ==

== ENCOUNTER 2024-02-22 11:50 | Outpatient (REF) | payer BC, SELFPAY | END 2024-02-22 11:51 | disposition home or self-care (01) | LOC: HO.HOSX 11:50 | PROVIDERS: Visit Provider Physician Assistant | DX: Z13.89 Encounter for screening for other disorder (principal) ==

== ENCOUNTER 2024-02-23 08:38 | Outpatient (REF) | payer BC, SELFPAY ==
--- NOTE | ~2024-02-23 | XR_ITS ---
CLINICAL HISTORY: M25.552 - Pain in left hip 3 view, pelvis and left hip Comparison: None Findings: No acute fracture or dislocation. The left hip arthroplasty is intact. Moderate degenerative change of the right femoral-acetabular joint. Diffuse vascular calcification. IMPRESSION: No acute findings. This document has been electronically signed by: Refugio Rust MD on 02/26/2024 10:46:38
== END 2024-02-23 08:39 | disposition home or self-care (01) ==
LOC: HO.HOSX 08:38
PROVIDERS: Visit Provider Physician Assistant
DX: M25.552 Pain in left hip (principal)
CPT/HCPCS: 73502

== ENCOUNTER 2024-02-23 09:34 | Outpatient (AMB) | payer BC, SELFPAY ==
--- NOTE | 2024-02-23 10:03 | A.OFFVIS_ITS ---
Intake Visit Reasons: PO: Left hip jonathan 11/29/23 NE Intake Note: Olga is a 63 year old female who presents today with her son for a post operative left hip jonathan, DOS 11/29/23 NE. Patient reports she is doing well, she mentions a recent fall around the time of her last visit at the facility she is residing at. She has been attending PT however she continues to struggle with bending down. Her son mentions that she has been declining since her initial injury. Allergies amlodipine [From Norvasc] Allergy (Mild, Verified 02/23/24 10:06) Swelling Penicillins Allergy (Mild, Verified 02/23/24 10:06) Rash erythromycin base Allergy (Unknown, Verified 02/23/24 10:06) Unknown enoxaparin [From Lovenox] Allergy (Verified 02/23/24 10:06) Vomiting heparin Allergy (Verified 02/23/24 10:06) Vomiting clindamycin [CLINDAMYCIN] Adverse Reaction (Intermediate, Verified 02/23/24 10:06) Diarrhea NephrAmine Allergy (Unknown, Uncoded 02/23/24 10:06) Swelling HPI HPI PO: Left hip jonathan 11/29/23 NE: Details: 63-year-old female returns to the office today 3 months status post left hip hemiarthroplasty with Dr. Cortez on 11/29/2023. She has been working with [employer] sical therapy and improving her ADLs. She has no concerns today. [facility] Medical History Diabetic foot infection Vertigo S/P angiogram of extremity (08/25/20) Diabetic foot ulcer associated with type 2 diabetes mellitus Cellulitis PAD (peripheral artery disease) Non-toxic multinodular goiter Dyslipidemia 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 Diabetic neuropathy associated with type 2 diabetes mellitus Diabetic retinopathy associated with type 2 diabetes mellitus Diabetic nephropathy associated with type 2 diabetes mellitus terminal carman (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 insulin Diabetes type 2, uncontrolled Foot osteomyelitis, right Surgical History S/P thyroid biopsy Hx of cataract extraction Hx of LASIK Hx of eye surgery Hx of foot surgery Family History Father COPD (chronic obstructive pulmonary disease) Diabetes Mother Heart disease Social History Household Members: None Housing: House Are you a primary residential care facility manager to a significant other at home: No Do you presently have visiting nurse or other home services: Yes Alcohol intake: current Alcohol intake frequency: does not drink Patient Tobacco Use Status: Former Tobacco user Years Smoked: 20 years e-Cigarette/Vaping Use: Never Used Advance Directives Date on File: 12/04/23 service: No Current occupational status: employed Review of Systems Const All systems reviewed & are unremarkable except as noted in HPI and below Physical Exam Extrem Other: Left hip: Incision well healed. No redness or drainage. NVI. Results Reviewed Results Reviewed: Xrays were obtained in the office today and personally reviewed by me of the left hip show prosthesis without signs of loosening. Assessment & Plan Assessment & Plan (1) History of left hip hemiarthroplasty: Code(s): Z96.642 - Presence of left artificial hip joint Category: Surgical Plan: She will continue with activities as tolerated and continue with her home exercise program for strengthening exercises and gait training. If symptoms arise she will contact our office otherwise follow-up as needed. Orders: Orders XR hip LT min 2V w/wo pel Today M25.552 - Pain in left hip Coding Level of Care Code Global (68407) Diagnoses History of left hip hemiarthroplasty Z96.642
== END 2024-02-23 10:21 | disposition home or self-care (01) ==
PROVIDERS: PCP Internal Medicine; Visit Provider Physician Assistant
DX: Z96.642 Presence of left artificial hip joint (principal)
CPT/HCPCS: 99024

== ENCOUNTER 2024-04-02 09:05 | Inpatient (IN) | payer BC, SELFPAY ==
--- NOTE | ~2024-04-02 | IR_ITS ---
CLINICAL HISTORY: IV antibiotics. PROCEDURES: 1. Real-time ultrasound guided access into the right internal jugular vein after documentation of selective vessel patency, and permanent imaging storing in the patient records. 2. Placement of a 5 Fr, 24 cm tunneled, dual-lumen power injectable Guevara CLINICIAN: Peter Monsivais PA-C MEDICATIONS: -Lidocaine 1% 10 ml, SQ. -Additional details, please see nursing flowsheet. Complications: None. Estimated blood loss: <5 ml Specimens: None. Contrast: None. Fluoroscopy time: 0.7 min PROCEDURE NOTE: The procedure, risks, benefits, and alternatives were carefully explained to the patient and written informed consent was obtained. The patient was placed supine on the fluoroscopy table. A timeout was performed. The right neck and chest was prepped and draped in usual sterile fashion. Local anesthesia was administered to the right neck access site with lidocaine. Under ultrasound guidance, the right internal jugular vein was accessed with a 5 fr micropuncture set. A permanent ultrasound picture was saved. A peel-away sheath was advanced over the wire. The catheter was measured and cut to length. Next, subcutaneous lidocaine was administered to the chest. Using blunt dissection, a subcutaneous tunnel was created that connects from the upper chest to the venotomy site. The catheter was pulled through the tunnel. The catheter was advanced through the sheath, which was subsequent peeled away. The catheter was tested, flushed, and sutured to the skin with its tip in the cavoatrial junction. The venotomy site was closed with surgical glue. A dry sterile dressing was applied to the chest and the venotomy site. A permanent chest fluoroscopic image was saved demonstrating the catheter tip in the cavoatrial junction. The patient was stable after the procedure was transferred back to the floor. IR/IR cvc insert central tunnel IMPRESSION: Placement of a tunneled dual-lumen Guevara catheter PLAN: -The catheter may be used immediately. This procedure was performed by Peter Monsivais PA-C, and supervised by Dr. Johansen Electronically signed by: Roger Johansen MD 04/09/2024 01:37 PM [facility]
--- NOTE | ~2024-04-02 | MR_ITS ---
CLINICAL HISTORY: ? osteomyelitis MR right foot with and without gadolinium Comparison: None Findings: There is significant deformity of the midfoot and metatarsals. There is near vertical angulation of the talus. Small subtalar joint effusion. Tibiotalar joint unremarkable. Midfoot plantar ulceration with subcutaneous gas, and soft tissue edema extending to the plantar metatarsals where there is patchy marrow edema and disruption of the cortices. Underlying the approximate 3rd tarsometatarsal joint there is a soft tissue gas and fluid collection measuring approximately 1.2 cm sagittal image 13. Impression: 1. Changes of a Charcot foot. 2. Plantar midfoot soft tissue ulceration with small gas and fluid collection which could be an early abscess. There is also abnormal cortical disruption and marrow edema involving the plantar metatarsals suggesting concomitant osteomyelitis. This document has been electronically signed by: Brandon Howell MD on 04/02/2024 21:49:35
--- NOTE | ~2024-04-02 | US_ITS ---
EXAMINATION: US TRIPLEX LOWER EXTREMITY, RIGHT CLINICAL INFORMATION: Right lower extremity swelling. COMPARISON: None available. TECHNIQUE: Color-flow triplex imaging with spectral analysis and compression Doppler were performed on the right lower extremity. FINDINGS: Respiratory variation, normal compression and augmented flow are noted throughout the right lower extremity. The visualized common femoral vein, superficial femoral vein, profunda femoral vein, popliteal vein and midcalf peroneal and posterior tibial venous segments show no evidence of deep venous thrombosis. There is no Barone's cyst. Multiple right inguinal lymph nodes are identified, largest 3.8 x 1.2 x 3.5 cm demonstrates a fatty hilum. US/US venous duplex LE RT IMPRESSION: No evidence of deep venous thrombosis involving the right lower extremity. Multiple right inguinal lymph nodes are identified, largest 3.8 x 1.2 x 3.5 cm demonstrates a fatty hilum. This study was presented today to April 02, 2024 for interpretation. Stat results provided at this time as requested by referring provider. Electronically signed by: Tati Bartlett MD 04/02/2024 01:52 PM [facility]
--- NOTE | ~2024-04-02 | XR_ITS ---
EXAMINATION: XR FOOT, RIGHT CLINICAL INFORMATION: r/o osteo COMPARISON: 05/04/2022, 10/21/2021. TECHNIQUE: AP, lateral, and oblique views of the right foot. FINDINGS: Again, there is midfoot and hindfoot collapse with rocker-bottom deformity and chronic Lisfranc degenerative changes. There is osseous fusion throughout the midfoot and hindfoot. Osseous bridging throughout the proximal and mid metatarsals. Finding is consistent with end-stage Charcot foot. No acute fracture or dislocation is seen. There is no right ankle joint effusion. No definite radiographic focal osteopenia or permeative bony change seen. There is a large soft tissue ulceration subjacent to the proximal midfoot. Grossly no extension of subcutaneous gas. XR/XR foot RT min 3V IMPRESSION: 1. Large soft tissue ulceration plantar posterior midfoot. No extension of subcutaneous gas. 2. Charcot foot, unchanged, with no definite radiographic findings of osteomyelitis. Electronically signed by: Aldair Lindsay MD 04/02/2024 01:23 PM [facility]
[2024-04-02 09:13] VITALS: BP 150/66; BP 164/70; PULSE 80; PULSE 96; RESP 16; TEMP 36.4; O2SAT 94; O2SAT 95; BMI 63.2
--- NOTE | 2024-04-02 10:24 | ED_ITS ---
HPI - General Adult General Chief complaint: General Medical Stated complaint: worsen wound from a snif Time Seen by Provider: 04/02/24 09:11 Source: patient, EMS, RN notes reviewed and old records reviewed Mode of arrival: EMS History of Present Illness ED Provider: Марина Monterroso PA-C HPI narrative: 63-year-old female with a past medical history CKD, diabetes, diabetic foot wound, HLD, HTN, right foot osteomyelitis, PAD, presenting to the ED via EMS from [facility] due to malodorous right foot wound. Patient states chronic wound followed by wound care however has been worsening. Reports slight drainage. Denies pain to area due to chronic neuropathy. Denies fever, chills Related Data Home Medications ?Medication ?Instructions ?Recorded ?Confirmed ferrous sulfate 325 mg (65 mg 325 mg PO QMONTH 08/07/23 12/31/23 iron) tablet,delayed release rosuvastatin 5 mg tablet 5 mg PO DAILY 08/07/23 12/31/23 sertraline 50 mg tablet 50 mg PO DAILY 08/07/23 12/31/23 cholecalciferol (vitamin D3) 50 50 mcg PO DAILY 11/28/23 12/31/23 mcg (2,000 unit) capsule (Vitamin D3) loratadine 10 mg tablet 10 mg PO DAILY 11/28/23 12/31/23 sennosides 8.6 mg tablet (senna) 8.6 mg PO DAILY PRN Constipation 12/31/23 12/31/23 omeprazole 40 mg capsule,delayed 40 mg PO DAILY 02/23/24 release Previous Rx's ?Medication ?Instructions ?Recorded flash glucose sensor (FreeStyle #2 ea 04/06/21 Amber 14 Day Sensor kit) blood sugar diagnostic (FreeStyle #100 ea 04/23/21 Lite Strips) blood-glucose meter (FreeStyle #1 ea 04/23/21 Lite Meter kit) lancets 28 gauge (FreeStyle #100 ea 04/23/21 Lancets) pen needle, diabetic 32 gauge x #150 ea 08/09/21 (BD Adela 2nd Gen Pen Needle) hydralazine 25 mg tablet 25 mg PO BID #60 tabs 01/04/24 insulin glargine 100 unit/mL 20 unit (0.2 mL) subcut BEDTIME 01/04/24 subcutaneous solution (Lantus #10 mL U-100 Insulin) insulin lispro 100 unit/mL See Protocol subcut QIDACHS #10 mL 01/04/24 subcutaneous solution (Admelog U-100 Insulin lispro) losartan 50 mg tablet 50 mg PO DAILY #30 tabs 01/04/24 Allergies Allergy/AdvReac Type Severity Reaction Status Date / Time amlodipine [From Norvasc] Allergy Mild Swelling Verified 04/02/24 09:17 Penicillins Allergy Mild Rash Verified 04/02/24 09:17 erythromycin base Allergy Unknown Unknown Verified 04/02/24 09:17 enoxaparin [From Lovenox] Allergy Vomiting Verified 04/02/24 09:17 heparin Allergy Vomiting Verified 04/02/24 09:17 clindamycin [CLINDAMYCIN] AdvReac Intermediate Diarrhea Verified 04/02/24 09:17 NephrAmine Allergy Unknown Swelling Uncoded 02/23/24 10:06 Review of Systems 2 Review of Systems: Yes all other systems are reviewed and are negative Constitutional: Constitutional: Reports as per [facility] Past Medical History Attestation statement: The following information was validated with the patient. Source: old records reviewed Medical History (Updated 04/02/24 @ 15:48 by Chary Melara NP) CKD (chronic kidney disease) Vertigo Diabetic foot ulcer associated with type 2 diabetes mellitus Cellulitis PAD (peripheral artery disease) Non-toxic multinodular goiter Dyslipidemia 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 Diabetic neuropathy associated with type 2 diabetes mellitus Diabetic retinopathy associated with type 2 diabetes mellitus Diabetic nephropathy associated with type 2 diabetes mellitus FPC (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 insulin Diabetes type 2, uncontrolled Surgical History S/P thyroid biopsy Hx of cataract extraction Hx of LASIK Hx of eye surgery Hx of foot surgery Family History Family History Father COPD (chronic obstructive pulmonary disease) Diabetes Mother Heart disease Social History Social History Household Members: None Housing: House Are you a primary career placement specialist to a significant other at home: No Do you presently have visiting nurse or other home services: Yes Alcohol intake: current Alcohol intake frequency: does not drink Patient Tobacco Use Status: Former Tobacco user Years Smoked: 20 years e-Cigarette/Vaping Use: Never Used Advance Directives: Yes Advance Directives on File: Yes Advance Directives Date on File: 12/04/23 Do you have a plan to hurt others: No Plan service: No Current occupational status: employed Physical Exam ED Vital Signs: Vital Signs - 24 hr 04/02/24 09:13 04/02/24 11:51 Temperature 97.5 F Pulse Rate 80 86 Respiratory Rate 16 16 Blood Pressure 150/66 H 176/81 H Pulse Oximetry 95 95 Oxygen Delivery Method Room Air Room Air BMI result Body Mass Index 63.2 Const General: cooperative, healthy appearing and no acute distress Orientation/consciousness: patient oriented x3 Limitations: no limitations HENMT Head: Yes normal to inspection and Yes atraumatic Ears: hearing grossly normal bilaterally General nose exam: Normal external nose present Face and sinus: Yes normal facial exam Eyes General: appearance normal, both eyes and all related structures EOM: EOMs intact bilaterally Neck Neck: Yes normal visual inspection and Yes no meningeal signs Resp Effort & Inspection: normal respiratory effort and no respiratory distress Cardio Rate: regular rate Skin Rashes: no rashes Neuro General: patient oriented x3, tone normal and no meningeal signs Cranial nerves: Yes CN's II-XII intact bilaterally Gait exam (Neuro): Normal gait present Extrem Other: Please refer to images above. Right foot with chronic ulcer with acute malodor and slight surrounding erythema. Nontender to palpation. No appreciable fluctuance or induration. No expressible drainage General: Yes edema (to RLE) Course Course Course Narrative: -1402--leukocytosis of 13.5. H&H at patient's baseline. ESR and CRP acute on chronically elevated -acute on chronic CKD with a creatinine of 1.7. Lactic acid WNL XR foot RT min 3V IMPRESSION: 1. Large soft tissue ulceration plantar posterior midfoot. No extension of subcutaneous gas. 2. Charcot foot, unchanged, with no definite radiographic findings of osteomyelitis. US venous duplex LE RT IMPRESSION: No evidence of deep venous thrombosis involving the right lower extremity. Multiple right inguinal lymph nodes are identified, largest 3.8 x 1.2 x 3.5 cm demonstrates a fatty hilum. This study was presented today to April 02, 2024 for interpretation. Stat results provided at this time as requested by referring provider. > plan to admit for further management Medications Administered Generic Name Dose Route Start Last Admin Trade Name Freq PRN Reason Stop Dose Admin Heparin Sodium (Porcine) 5,000 unit 04/02/24 16:00 04/02/24 16:56 Heparin Sodium,Porcine 5,000 Unit/Ml Vial SUBCUT Not Given Q12H PENDING SALE TO [facility] Insulin Human Lispro 0 unit 04/02/24 16:30 04/02/24 17:32 Insulin Lispro 100 Unit/Ml 3 Ml Vial SUBCUT Not Given QIDACHS PENDING SALE TO [facility] Protocol Sodium Chloride 3 ml 04/02/24 16:00 04/02/24 16:57 0.9 % Sodium Chloride Flush 3 Ml Syringe IVFLUSH 3 ml QSHIFT PENDING SALE TO [facility] Administration Discontinued Medications Generic Name Dose Route Start Last Admin Trade Name Freq PRN Reason Stop Dose Admin Ceftriaxone Sodium 1 gm 04/02/24 09:57 04/02/24 11:06 Ceftriaxone Sodium 1 Gm Vial IVPUSH 04/02/24 09:58 1 gm ONCE ONE Administration Vancomycin HCl 2,000 mg in 500 mls @ 250 mls/hr 04/02/24 09:57 04/02/24 11:06 Vancomycin/Ns IV 04/02/24 11:56 250 mls/hr ONCE ONE Administration Medical Decision Making Medical Decision Making [facility] Narrative: 63-year-old female with a past medical history CKD, diabetes, diabetic foot wound, HLD, HTN, right foot osteomyelitis, PAD, presenting to the ED via EMS from [facility] due to malodorous right foot wound. On exam vital signs stable, NAD, nontoxic appearing, please refer to images above. Concern for cellulitis and acute osteomyelitis. Rule out DVT. Low suspicion for severe sepsis at this time. Plan: Labs, x-ray, ultrasound, empiric IV antibiotics, admission Please refer to course for remaining clinical decision making, interpretation of labs/imaging results, and discussions with consultants and/or family members. Differential Diagnosis Differential Diagnoses: The differential diagnosis associated with the presentation includes As above Admission/Observation Consideration of admission/observation: Escalation of care including admission/observation considered Lab Data [facility] Lab Attestation statement: I reviewed the patient's lab results. 04/02/24 10:37 04/02/24 10:34 Labs: Lab Results 04/02/24 04/02/24 04/02/24 Range/Units 10:34 10:37 10:39 WBC 13.5 H (4.8-10.8) X10*3/uL RBC 3.96 L D (4.20-5.50) X10*6/uL Hgb 10.6 L (12.0-16.0) g/dl Hct 33.7 L D (37.0-47.0) % MCV 85.1 (80.0-98.0) fL MCH 26.8 L (27.0-33.0) pg MCHC 31.5 (31.0-35.0) g/dl RDW 14.4 (11.0-16.0) % Plt Count 452 H D (160-400) X10*3/uL MPV 9.5 (9.4-12.3) fL Immature Gran % (Auto) 2.0 H (0.0-0.4) % Neut % (Auto) 84.1 H (45-73) % Lymph % (Auto) 8.3 L (20-40) % [place] % (Auto) 3.6 (2-11) % Eos % (Auto) 1.7 (0-4) % Baso % (Auto) 0.3 (0-2) % Lymph # (Auto) 1.1 L (1.2-4.9) X10*3/uL [place] # (Auto) 0.5 (0.1-1.2) X10*3/uL Eos # (Auto) 0.2 (0.0-0.4) X10*3/uL Baso # (Auto) 0.0 (0.0-0.2) X10*3/uL Abs Immat Gran (auto) 0.27 H (0.00-0.03) X10*3/uL Absolute Neuts (auto) 11.3 H (2.0-8.3) x10*3/uL Absolute Nucleated RBC 0.000 (0.0-0.012) X10*3/uL Nucleated RBC % (auto) 0.0 (0.0-0.2) /100WBC ESR 97 H (0-20) MM/HR PT 12.9 H (10.9-12.4) SEC INR 1.1 (0.9-1.1) Sodium 139 (135-145) mmol/L Potassium 4.3 (3.3-5.1) mmol/L Chloride 105 (96-108) mmol/L Carbon Dioxide 24 (22-29) mmol/L Anion Gap 14 (12-20) BUN 41 H (9-16) mg/dL Creatinine 1.74 H (0.5-1.4) mg/dL Estim Creat Clear Calc 56.4 Estimated GFR 30 Random Glucose 116 H (60-115) mg/dL Lactic Acid 0.9 (0.5-2.0) mmol/L Calcium 9.2 (8.4-10.2) mg/dL Magnesium 2.1 (1.6-2.6) mg/dL Total Bilirubin 0.3 (0.0-1.0) mg/dL Direct Bilirubin 0.2 (0.0-0.5) mg/dL AST 36 H (5-31) U/L ALT 9 (0-31) U/L Alkaline Phosphatase 65 (39-117) U/L C-Reactive Protein 18.70 H (< or = 0.50) mg/dL Total Protein 8.0 (6.5-8.0) g/dL Albumin 3.2 L (3.5-5.0) g/dL Independent Interpretation I performed an independent interpretation of an: Plain X-Ray and Ultrasound Radiology Impression Discussion of test interpretation with radiology: I have reviewed the radiologist's reading. Independent Historian Clinical information obtained from an independent historian. History obtained from or confirmed by: EMS External Record Review External record reviewed: Inpatient record, Office record, Outpatient record, Prior outpatient labs, Prior outpatient radiology, Primary care record and Outside ED record Tests considered The following testing was considered but not selected: As above Prescription Management I considered prescription management with: Pain Medication and Antibiotic Chronic Conditions Patient?s care impacted by: Diabetes Social Determinants Patient?s care significantly limited by Social Determinants of Health including: Problems related to primary support group, Unemployment and Other Social Determinant of Health Discharge Plan Discharge Clinical Impression: Diabetic foot infection Patient Disposition: Admitted As Inpatient
--- OUTSIDE RECORDS SUMMARY | 2024-04-02 10:24 | XMS_ITS | Encounter Summary ---
Author Organization [facility] Address [id number] [place] [id number] Care Team Providers Care Mammography Supervisor Name Role Phone Kristin Bellamy MD Primary Care Provider [phone] Encounter Details Date Type Department Care Team (Late st Contact Info) Description 02/20/2024 Lab Requisition [facility] - Main Lab [address] [facility] [place] [address] Gilson Davidson MD [address] [facility] [address] [place], [phone] Hyperlipidemia, unspecified; Other specified diabetes mellitus with other specified complication (CMS/HCC); Other acute osteomyelitis, right ankle and foot (CMS/HCC); Type 2 diabetes mellitus without complications (CMS/HCC); Essential (primary) hypertension Social History Tobacco Use Types Packs/Day Years Used Date Smoking Tobacco: Former Cigarettes Q uit: 02/13/2001 Smokeless Tobacco: Never Alcohol Use Standard Drinks/Week Comments No 0 (1 standard drink = 0.6 oz pur e alcohol) Comments Unknown Sex and Gender Information Value Date Recorded Sex Assigned at Not on file Legal Sex Female 2:32 PM EST Gender Identity Not on file Sexual Orientation Not on file documented as of this encounter Plan of Treatment Not on file documented as of this encounter Procedures Procedure Name Priority Date/Time Associated Diagnosis Comments SEDIMENTATION RATE Routine 02/21/2024 7: 35 AM EST Hyperlipidemia, unspecified Other specified diabetes mellitus with other specified complication (CMS/HCC) Other acute osteomyelitis, right ankle and foot (CMS/HCC) Type 2 diabetes mellitus without complications (CMS/HCC) Essential (primary) hypertension COMPLETE BLOOD COUNT Routine 02/21/2024 7:35 AM EST Hyperlipidemia, unspecified Other specified diabetes mellitus with other specified complication (CMS/HCC) Other acute osteomyelitis, right ankle and foot (CMS/HCC) Type 2 diabetes mellitus without complications (CMS/HCC) Essential (primary) hypertension C-REACTIVE PROTEIN Routine 02/21/2024 7: 35 AM EST Hyperlipidemia, unspecified Other specified diabetes mellitus with other specified complication (CMS/HCC) Other acute osteomyelitis, right ankle and foot (CMS/HCC) Type 2 diabetes mellitus without complications (CMS/HCC) Essential (primary) hypertension BASIC METABOLIC PANEL Routine 02/21/2024 7:35 AM EST Hyperlipidemia, unspecified Other specified diabetes mellitus with other specified complication (CMS/HCC) Other acute osteomyelitis, right ankle and foot (CMS/HCC) Type 2 diabetes mellitus without complications (CMS/HCC) Essential (primary) hypertension documented in this encounter Results * (ABNORMAL) Sedimentation rate (02/21/2024 7:35 AM EST) Pathologist [facility] Sed Rate 35(H) 0 - 30 mm/hr LAB HEMETOLOGY METHOD 02/21/2024 11:29 AM EST [facility] Blood Venous blood specimen / Unknown Venipuncture / Unknown 02/21/2024 7:35 AM EST 02/21/2024 10:10 AM EST us Gilson Davidson MD LAB BLOOD ORDERABLES Final Resul t [facility] [address] [place] [address], * C-reactive protein (02/21/2024 7:35 AM EST) Pathologist [facility] C-Reactive Protein <0.29 <=0.50 mg/dL LAB CHEMISTRY METHOD 02/21/2024 11:53 AM EST [facility] Blood Venous blood specimen / Unknown Venipuncture / Unknown 02/21/2024 7:35 AM EST 02/21/2024 10:10 AM EST us Gilsno Davidson MD LAB BLOOD ORDERABLES Final Resul t [facility] [address] [place] [address], * (ABNORMAL) Basic metabolic panel (02/21/2024 7:35 AM EST) Sodium 138 133 - 145 mmol/L LAB CHEMISTRY METHOD 02/21/2024 11:53 AM [facility] Potassium 4.4 3.5 - 5.5 mmol/L LAB CHEMISTRY METHOD 02/21/2024 11:53 AM [facility] Chloride 106 96 - 110 mmol/L LAB CHEMISTRY METHOD 02/21/2024 11:53 AM [facility] CO2 28 21 - 32 mmol/L LAB CHEMISTRY METHOD 02/21/2024 11:53 AM [facility] Anion Gap 4 3 - 11 LAB CHEMISTRY METHOD 02/21/2024 11:53 AM [facility] Glucose 94 70 - 100 mg/dL LAB CHEMISTRY METHOD 02/21/2024 11:53 AM [facility] BUN 23 5 - 25 mg/dL LAB CHEMISTRY METHOD 02/21/2024 11:53 AM [facility] Creatinine 1.31(H) 0.50 - 1.10 mg/dL LAB CHEMISTRY METHOD 02/21/2024 11:53 AM [facility] eGFR 46(L) >=60 mL/min/1. 73m2 LAB CHEMISTRY METHOD 02/21/2024 11:53 AM [facility] Comment:Calculation based on the??Chronic Kidney Disease Epidemiology Collaboration (CKD-EPI) equation refit??without adjustment for race. BUN/Creatinine Ratio 17.6 LAB CHEMISTRY METHOD 02/21/2024 11:53 AM [facility] Calcium 9.2 8.5 - 10.5 mg/dL LAB CHEMISTRY METHOD 02/21/2024 11:53 AM [facility] Blood Venous blood specimen / Unknown Venipuncture / Unknown 02/21/2024 7:35 AM EST 02/21/2024 10:10 AM EST us Gilson Davidson MD LAB BLOOD ORDERABLES Final Resul t [facility] [address] [place] [address], * (ABNORMAL) Complete blood count (02/21/2024 7:35 AM EST) WBC 8.6 4.8 - 10.8 K/mcL LAB HEMETOLOGY METHOD 02/21/2024 11:23 AM [facility] RBC 4.20 3.80 - 4.80 M[facility] LAB HEMETOLOGY METHOD 02/21/2024 11:23 AM [facility] Hemoglobin 11.7 11.5 - 16.0 g/dL LAB HEMETOLOGY METHOD 02/21/2024 11:23 AM [facility] Hematocrit 37.3 35.0 - 47.0 % LAB HEMETOLOGY METHOD 02/21/2024 11:23 AM [facility] MCV 88.6 79.0 - 98.0 FL LAB HEMETOLOGY METHOD 02/21/2024 11:23 AM [facility] MCH 27.8 27.0 - 32.0 pcg LAB HEMETOLOGY METHOD 02/21/2024 11:23 AM [facility] MCHC 31.4(L) 32.0 - 37.0 g/dL LAB HEMETOLOGY METHOD 02/21/2024 11:23 AM [facility] RDW 14.3 11.0 - 15.0 % LAB HEMETOLOGY METHOD 02/21/2024 11:23 AM [facility] Platelets 464(H) 130 - 400 K/mcL LAB HEMETOLOGY METHOD 02/21/2024 11:23 AM EST [facility] MPV 10.2 7.0 - 11.0 FL LAB HEMETOLOGY METHOD 02/21/2024 11:23 AM EST [facility] NRBC 0.0 <1.0 % LAB HEMETOLOGY METHOD 02/21/2024 11:23 AM EST [facility] NRBC Absolute 0.00 <0.10 K/mcL LAB HEMETOLOGY METHOD 02/21/2024 11:23 AM EST [facility] Blood Venous blood specimen / Unknown Venipuncture / Unknown 02/21/2024 7:35 AM EST 02/21/2024 10:10 AM EST us Gilson Davidson MD LAB BLOOD ORDERABLES Final Resul t [facility] [address] [place] [address], documented in this encounter Visit Diagnoses Diagnosis Hyperlipidemia, unspecified Other specified diabetes mellitus with other specified complication (CMS/HCC) Other acute osteomyelitis, right ankle and foot (CMS/HCC) Type 2 diabetes mellitus without complications (CMS/HCC) Essential (primary) hypertension Unspecified essential hypertension documented in this encounter Care Teams Mammography Supervisor Relationship Specialty Start Date End Date Kristin Bellamy MD [address] PCP - General Internal Medicine 11/29/19 documented as of this encounter
--- OUTSIDE RECORDS SUMMARY | 2024-04-02 10:24 | XMS_ITS | Data Portability ---
Author Organization [facility], Main Office Address [address], [address] [place] [address] Care Team Providers Care Pipelines Manager Name Role Phone TRA DAMON - 2ND FLOOR OTHER GA ROBISON Primary Care Provider Assessment No assessment recorded. Plan of Treatment Reminders Order Date Submit Date Provider Last Modified By Organization Details Last Modified Time Details Appointments None record ed. Lab None record ed. Referral None record ed. Procedures None record ed. Surgeries None record ed. Imaging None record ed. Medication Orders None record ed. Patient TargetsNo targets recorded. Patient InstructionsNo instructions recorded. Reason for Referral None Reported. Problems Name Problem SNOMED Code Status Onset Date Resolution Date Notes Provider Name and Address Organization Details Recorded Time Vasovagal syncope 394749473 Active 2019 ANN PALENCIA [address] , [address], [place], [address], [facility] 0 10:46:40 Acute insomnia 865350167 Active 2019 ANN PALENCIA [address], [address], [place], [address], [facility] 0 12:20:58 Seasonal allergy 423688503 Active 2023 Coco Patiño NP [address] , [address], [place], [address], [facility] 4 08:54:18 Constipation 90836444 Active 2023 Coco Patiño NP [address], [address], [place], [address], [facility] 4 08:55:05 Depressive disorder 97414989 Active 2023 Coco Patiño NP [address] [facility], [address], [place], [address], [facility] 4 09:18:55 Fracture of neck of femur 7608076 Active 2023 Coco Patiño NP [address] [facility], [address], [place], [address], [facility] 4 09:23:30 Non-toxic multinodular goiter 53016980 Active 2023 Kellie Padilla MD [address] [facility], [address], [place], [address], [facility] 4 15:57:10 Diabetes mellitus 82852675 Active [address] [facility] [address] [facility], [address], [place], [address], [facility] 8 14:10:02 Neuropathy due to diabetes mellitus 659064802 Active [address] [facility], [address], [place], [address], [facility] 8 14:10:12 Asthma 288315583 Active [address] [facility], [address], [place], [address], [facility] 8 14:10:19 Essential hypertension 86827767 Active [address] [facility], [address], [place], [address], [facility] 8 14:10:38 Diabetic foot ulcer 975746439 Active [address] [facility], [address], [place], [address], [facility] 8 14:11:07 Charcot's joint of foot 748065108 Active [address] [facility], [address], [place], [address], [facility] 8 14:11:40 Cellulitis 062825502 Active 2017 ANN PALENCIA [address], [place], [address], [facility] 8 14:11:51 Chronic kidney disease stage 3 682676155 Active 2017 ANN PALENCIA [address], [place], [address], [facility] 8 14:12:00 Osteomyeliti s of ankle AND/OR foot 72110887 Active 2017 right plantar foot GUSTAVO PALENCIAP [address] [facility], [address], [place], [address], [facility] 8 14:13:20 Sepsis 94249080 Active 2017 group b strep ANN PALENCIA [address] [facility], [address], [place], [address], [facility] 8 14:15:46 Mixed hyperlipidem ia 586478995 Active 2017 ANN PALENCIA [address] , [address], [place], [address], [facility] 8 14:20:07 Anemia 659586990 Active [address] [facility], [address], [place], [address], [facility] 8 14:20:36 Gastroesopha geal reflux disease without esophagitis 723447217 Active [address] [facility], [address], [place], [address], [facility] 8 14:20:48 Goiter 3762360 Active 2017 ANN PALENCIA [address], [address], [place], [address], [facility] 8 08:06:57 Problem Notes None recorded. Medical Equipment None Reported. Allergies Allergen ID Allergen Name Allergen Category Reaction Reaction Severity Criticality Documentation Date Start Date Code Code System Note Provider Name and Address Organization Details Recorded Time 62869 Product containin g penicilli n (product) medicatio n rash Not available Not available 09/01/2017 19470 8001 SNOMED Not Available Not Available Not Available 33730 Product containin g cephalosp concha (product) medicatio n rash Not available Not available 09/01/2017 87724 9009 SNOMED Not Available Not Available Not Available 41231 erythromy cesar medicatio n Not available Not available Not available 09/01/2017 4053 RxNorm Not Available Not Available Not Available 67199 amlodipin e medicatio n Not available Not available Not available 08/07/2019 26168 RxNorm Not Available Not Available Not Available 55818 cat dander environme nt Not available Not available Not available 08/07/2019 33534 UNK Not Available Not Available Not Available 58092 Canis lupus familiari s extract environme nt Not available Not available Not available 08/07/2019 93104 4 RxNorm Not Available Not Available Not Available 42648 Keflex medicatio n Not available Not available Not available 08/07/2019 48863 7 RxNorm Not Available Not Available Not Available 78286 clindamyc in Not available Not available Not available Not available 02/13/2024 2582 RxNorm Not Available Not Available Not Available 39628 olmesarta n medicatio n Not available Not available Not available 02/13/2024 77009 4 RxNorm Not Available Not Available Not Available 32490 Shellfish (substanc e) food,medi cation Not available Not available Not available 02/13/2024 05823 9006 SNOMED Not Available Not Available Not Available Medications Not known to be on any medication Vitals Date Recorded Body height Heart rate Respiratory rate Body temperature Oxygen saturation Oxygen saturation in Arterial blood by Pulse oximetry Systolic blood pressure Diastolic blood pressure Provider Name and Address Organization Details Last Updated DateTime 5 165.1 cm 76 /min 16 /min 97.2 [degF] 96 % 96 % 168 mm[Hg] 80 mm[Hg] JOHN KAYE NP [address] [facility], [address], [place], [address], [facility] 5 13:36:01 Date Recorded Body height Body mass index (BMI) Body weight Heart rate Respiratory rate Body temperature Oxygen saturation Oxygen saturation in Arterial blood by Pulse oximetry Systolic blood pressure Diastolic blood pressure Provider Name and Address Organization Details Last Updated DateTime 5 165.1 cm 31.3 kg/m2 75145.3 7 g 76 /min 16 /min 97.2 [degF] 96 % 96 % 165 mm[Hg] 80 mm[Hg] Coco Patiño NP [address] [facility], [address], [place], [address], [facility] 5 19:05:24 Date Recorded Body height Systolic blood pressure Diastolic blood pressure Provider Name and Address Organization Details Last Updated DateTime 03/06/2024 165.1 cm 168 mm[Hg] 86 mm[Hg] Gilson Davidson MD [address] [facility], [address], [place], [address], [facility] 03/06/2024 10:16:02 Date Recorded Body height Body mass index (BMI) Body weight Heart rate Respiratory rate Body temperature Oxygen saturation Oxygen saturation in Arterial blood by Pulse oximetry Systolic blood pressure Diastolic blood pressure Provider Name and Address Organization Details Last Updated DateTime 5 165.1 cm 29.5 kg/m2 80963.8 5 g 74 /min 18 /min 98 [degF] 96 % 96 % 162 mm[Hg] 74 mm[Hg] Coco Patiño NP [address] [facility], [address], [place], [address], [facility] 5 20:06:31 Date Recorded Body height Heart rate Respiratory rate Body temperature Oxygen saturation Oxygen saturation in Arterial blood by Pulse oximetry Systolic blood pressure Diastolic blood pressure Provider Name and Address Organization Details Last Updated DateTime 5 165.1 cm 77 /min 18 /min 98.2 [degF] 96 % 96 % 135 mm[Hg] 63 mm[Hg] JOHN KAYE NP [address] [facility], [address], [place], [address], [facility] 5 09:35:47 Social History Question Answer Notes LastModified by Organization Details LastModified Time Tobacco Smoking Status Former Smoker smoked 1 pack/week, quit in 2001 Kellie Padilla MD [address] [facility], [address], [place], [address], [facility] 01/09/2024 19:33:16 Do You Have An Advance Directive? Yes Cpr, Transfer To Hosp, Short Term Dialysis, Art Nutrition And Hydration Okay NO Intubation Signed Information not available 01/05/2024 What Is Your Level Of Alcohol Consumption? None [id number] Information not available 12/10/2019 How Much Tobacco Do You Chew? None [id number] Information not available 12/10/2019 What Is Your Code Status? DNI Information not available 01/09/2024 Do You Or Have You Ever Used E-cigarettes Or Vape? Never Used Electronic Cigarettes [id number] Information not available 12/10/2019 Where Do You Live? SingleLevelHouse Lives Alone, Has Ramp Information not available 01/09/2024 Legal Guardian? No Information not available 01/09/2024 Do You Have A Medical Power Of Cafe Associate? Yes Information not available 01/09/2024 What Was The Date Of Your Most Recent Tobacco Screening? 01/05/2024 Information not available 01/05/2024 Do You Have An Out Of Hospital DNR? No Information not available 01/09/2024 What Is Your Relationship Status? Information not available 01/09/2024 Do You Or Have You Ever Used Smokeless Tobacco? Never Used Smokeless Tobacco [id number] Information not available 12/10/2019 How Much Tobacco Do You Smoke? No Information not available 01/09/2024 Do You Use Any Illicit Or Recreational Drugs? No Information not available 01/09/2024 Has Tobacco Cessation Counseling Been Provided? No N/a As Pt No Longer Smokes Information not available 01/09/2024 How Many Years Have You Smoked Tobacco? 20 [id number] Information not available 12/10/2019 Do You Or Have You Ever Used Any Other Forms Of Tobacco Or Nicotine? No Information not available 01/09/2024 Sex: Unknown Functional Status None recorded. Mental Status None recorded. Family History Nothing Reported Notes:mom may have passed fr om covid or ?stroke Medical History No medical history recorded. Gynecological HistoryNo gynecological history recorded. Obstetrics History GPAL:G 0 P 0 0 0 0 Past Encounters Encounter ID Performer Location Encounter Start Date Encounter Closed Date Diagnosis/Indication Diagnosis SNOMED-CT Code Diagnosis ICD10 Code Diagnosis Note [id number] FAITH ANN GARCIA [facility] [address] [place] [address] 09/01/2017 13:57:54 09/14/2017 14:32:28 Sepsis 73923827 A40.1 PT/OT eval and treatvanco 750 mg IV qdfollow vanco troughsfol low up with IDhickman in right chestmonit or for resolution Osteomyeli tis of ankle AND/OR foot 99670171 M86.8X7 pain controlID follow upoxycodon e 5 mg q 6 hrs prntylenol 650 mg q 6 hrs prnvanco 750 mg IV qd follow vanco troughs zarate in right chest monitor for resolution Essential hypertension 02513157 I10 lasix 80 mg bidnifedip ine 60 mg qdmonitor b/p and labs Diabetes mellitus 349340 09 E11.69 humalog SSIlantus 36 units qdmonitor [id number] 7.3 currentlym onitor for s/s of hypo/hyper glycemia Anemia 709884202 D50.8 ferrous sulfate 325 mg bidvitamin C 500 mg qdfollow labstransf use as needed Gastroesop hageal reflux disease without esophagitis 203955904 K21.9 not currently on medication monitor for symptoms Mixed hyperlipidemia 267 965044 E78.2 atorvastat in 20 mg qdfollow labs Diabetic foot ulcer 3710 60928 E11.42 wound md quiles and treat-here wound dsg as orderedmon itor for worsening infection Chronic ki dney disease stage 3 114419865 N18.3 avoid nephrotoxi c medication smonitor labs Neuropathy due to diabetes mellitus 293930648 E11.42 pain controlmon itor Asthma 336994816 J45.99 8 albuterol 2 puffs q 4 hrs prnloratad ine 10 mg qdmonitor respirator y status [id number] FAITHANN ROGERS [address] [place] [address] 09/08/2017 07:54:29 09/14/2017 15:12:58 Sepsis 48420043 A40.1 PT/OT eval and treatvanco 750 mg IV qdfollow vanco troughsfol low up with IDhickman in right chestmonit or for resolution Osteomyeli tis of ankle AND/OR foot 87549049 M86.8X7 pain controlID follow upoxycodon e 5 mg q 6 hrs prntylenol 650 mg q 6 hrs prnvanco 750 mg IV qd follow vanco troughs zarate in right chest monitor for resolution Essential hypertension 49496795 I10 lasix 40 mg bidnifedip ine 60 mg qdmonitor b/p and labs Diabetes mellitus 579012 09 E11.69 humalog SSIlantus 36 units qdmonitor glucosemon itor for s/s of hypo/hyper glycemia Anemia 279861673 D50.8 ferrous sulfate 325 mg bidvitamin C 500 mg qdfollow labstransf use as needed Gastroesop hageal reflux disease without esophagitis 567910472 K21.9 not currently on medication monitor for symptoms Mixed hyperlipidemia 267 881447 E78.2 atorvastat in 20 mg qdfollow labs Diabetic foot ulcer 3710 75781 E11.42 wound dsg as orderedmon itor for worsening infectionf ollow up with surgeon Chronic dney disease stage 3 516700663 N18.3 avoid nephrotoxi c medication smonitor labs Neuropathy due to diabetes mellitus 832220696 E11.42 pain controlmon itor Asthma 818078603 J45.99 8 albuterol 2 puffs q 4 hrs prnloratad ine 10 mg qdmonitor respirator y status Goiter 7921793 E04.8 patient states PCP is aware in [facility] onitor [id number] [facility] YOLANDE AUGUSTIN [address] [place] [address] [place] [address] 09/09/2017 19:34:48 09/12/2017 03:47:51 Osteomyelitis of ankle AND/OR foot 45540306 M86.9 f/u dr fernando 2 weeks elevate leg pack right lateral debrided site with 1/2 packing and adaptic to plantar site then cover with 4/4 and wrap with kerlix daily continue iv abx, pain control continue to monitor site Diabetic foot ulcer 3710 54565 E11.40 continue to monitor f/s assess site daily [id number] MD YOLANDE Maldonado [address] [place] [address] [place] [address] 09/10/2017 12:42:06 09/14/2017 15:26:11 Diabetic foot ulcer 339896179 L97.513 see HPIfollow surgical recsgoal is to prevent amputation wound care [facility] for infection and pain controltit rate vanco Osteomyeli tis of ankle AND/OR foot 82151663 M86.8X7 see HPIcontinu e vancomonit or infectionm onitor renal function in patient with baseline renal failure Chronic ki dney disease stage 3 305100953 N18.3 monitor renal function on IV vanco Essential hypertension 72878682 I10 lasix 40 mg bidmonitor bp and labsmonito r and titrate meds as needed Diabetes mellitus 059928 09 E11.9 monitor glucoseten ds to rise if infection getting worse Anemia 922533870 D50.1 acute on chronic anemiarequ ired recent tx with 2 units pRBCrepeat cbc and monitor need for further tx Gastroesop hageal reflux disease without esophagitis 049872658 K21.9 monitor for sx control [id number] ANN PALENCIA [address] [place] [address] 09/18/2017 17:19:21 10/10/2017 12:42:53 Osteomyelitis of ankle AND/OR foot 31752247 M86.8X7 pain controlID follow upoxycodon e 5 mg q 6 hrs prntylenol 650 mg q 6 hrs prnvanco 500 mg IV qd probioticf ollow vanco troughs zarate in right chest monitor for resolution Diabetic foot ulcer 3710 74891 E11.42 wound dsg as orderedmon itor for worsening infectionf ollow up with surgeonsee s in house wound mddebrided todaywill start zosyn 3.375 mg iv q 6 hrs [id number] ANA AUGUSTIN [address] [place] [address] 09/27/2017 15:11:19 10/10/2017 13:25:30 Osteomyelitis of ankle AND/OR foot 76988677 M86.8X7 pain controlID follow upoxycodon e 5 mg q 6 hrs prntylenol 650 mg q 6 hrs prnvanco 500 mg IV qd probiotic- add Imodium 2 gm q 6 PRN due to loose stoolsNurs ing will monitor for question of c. difffollow vanco troughs zarate in right chest monitor for resolution Diabetic foot ulcer 3710 19194 E11.42 wound dsg as orderedmon itor for worsening infectionf ollow up with surgeonsee s in house wound anabella see her again on mondaycont inue zosyn 3.375 mg iv q 6 hrs [id number] ANN PALENCIA [place] [address] [place] [address] 08/07/2019 09:53:22 08/09/2019 10:17:32 Vasovagal syncope 240194640 R55 resolved monitor Anemia 881263449 D50.8 ferrous sulfate 325 mg qdvitamin C 500 mg qd cyanocobal campbell 100 mcg qd follow labs labs are coming up slowly Chronic ki dney disease stage 3 138388305 N18.3 avoid nephrotoxi c medication smonitor labs Diabetes mellitus 969828 09 E11.21 toujeo (lantus) 55 units qd SSI lispro 16 units tid monitor glucosemon itor for s/s of hypo/hyper glycemia Asthma 176067119 J45.99 8 albuterol 2 puffs qid prnloratad ine 10 mg qdmonitor respirator y status Essential hypertension 39170800 I10 lasix 40 mg qdirbesart an 300 mg qdmonitor b/p and labs Mixed hyperlipidemia 267 104983 E78.2 atorvastat in 20 mg qdfollow labs Gastroesop hageal reflux disease without esophagitis 287762556 K21.9 not currently on medication monitor for symptoms Removal of internal fixation device 66012893 Z47.2 s/p removal right foot hardware prior to syncopal episode aquacel ag to wound bed, zinc to cheryl wound and cover with dsd monitor for s/s of infection Goiter 7684442 E04.8 patient saw endocrine in hospital and wants no further workupmoni tor Acute insomnia 099457470 G47.09 melatonin 5 mg q hs monitor sleep [id number] Gilson Davidson MD [place] [address] [place] [address] 08/12/2019 14:04:40 08/19/2019 15:16:58 Vasovagal syncope 373057708 R55 see HPImonitor bp Removal of internal fixation device 07679188 Z47.2 see HPIs/p hardware removal RLEre-eval by ortho and wound cauterized with silver nitratemon itor sitefollow ortho recsNWB till cleared by orthoPT OT eval and treat Anemia 845063866 D50.8 post op anemiamoni tor cbc and need for tx Chronic ki dney disease stage 3 039289485 N18.3 baseline CRF stage 3monitor renal functionav oid nephrotoxi c medication snephro consult prn Diabetes mellitus 795352 09 E11.21 lantus increased to 55 units qd on morning of admit to hospital continue insulin SSmonitor need to adjust Essential hypertension 29084135 I10 lasix 40 mg qdirbesart an 300 mg qdmonitor bp and renal functionti trate prn Mixed hyperlipidemia 267 327190 E78.2 lipitor 20 mg qdcontinue Gastroesop hageal reflux disease without esophagitis 898038664 K21.9 carrying dxstable at baselinemo nitor for sx Goiter 5168820 E04.8 by report refuses further w/u [id number] ANN PALENCIA [address] [address] 08/13/2019 10:31:44 08/19/2019 15:20:39 Vasovagal syncope 094498628 R55 resolved follow up with PCP Removal of internal fixation device 42353257 Z47.2 s/p removal right foot hardware prior to syncopal episode aquacel ag to wound bed, zinc to cheryl wound and cover with dsd follow up with PCP/shahid anne on 08/20/19 Anemia 910639186 D50.8 ferrous sulfate 325 mg qdvitamin C 500 mg qd cyanocobal campbell 100 mcg qd follow up with PCP Chronic ki dney disease stage 3 215352410 N18.3 follow up with PCP Diabetes mellitus 528256 09 E11.21 toujeo (lantus) 55 units qd sliding scale insulin lispro 16 units tid follow up with PCP Asthma 565162410 J45.99 8 albuterol 2 puffs qid prnloratad ine 10 mg qdfollow up with PCP Essential hypertension 30513714 I10 lasix 40 mg qdirbesart an 300 mg qdfollow up with PCP Mixed hyperlipidemia 267 583369 E78.2 atorvastat in 20 mg qdfollow up with PCP Gastroesop hageal reflux disease without esophagitis 509710117 K21.9 not currently on medication follow up with PCP Goiter 5133004 E04.8 patient saw endocrine in hospital and wants no further workupfoll ow up with PCP Acute insomnia 429139767 G47.09 melatonin 5 mg q hs follow up with PCP [id number] Coco Patiño NP [address] [address] 01/05/2024 08:14:27 01/08/2024 10:24:50 Chronic kidney disease stage 3 594004844 N18.30 avoid nephrotoxi c medication smonitor labs weekly on wednesdays Diabetes mellitus 554243 09 E11.21 *(note doses adjusted in hospital)S SI lisprolant us 20 units sc qhsmonitor glucose qid acmonitor for s/s of hypo/hyper glycemia Essential hypertension 23597036 I10 *hydralazi ne 25 mg po bid (added in hosp)losar aguilera 50 mg qd (reduced from 100 mg qd at home prior)murray tor b/p and labs and adjust as needed Mixed hyperlipidemia 267 193255 E78.2 rosuvastat in 5mg qdfollow labs Gastroesop hageal reflux disease without esophagitis 541653233 K21.9 not currently on medication monitor for symptoms Goiter 1743593 E04.8 hx ofpt requesting records from [facility] regarding left goiter biopsy done on 11/23/23mo nitor for results Anemia 285532462 D50.8 325 mg ferrous sulfate q monthmonit or for s/s of anemia and cbc wednesdays Seasonal allergy 8526682 04 J30.2 claritin 10 mg qdmonitor Constipation 97199070 K5 9.00 senna 8.6 mg qd prnhouse bowel protocol Osteomyeli tis of ankle AND/OR foot 61760551 M86.8X7 cefazolin q 8 hours until 30probi otic 1 tab po bid until 30left right plantar lateral foot: ns, pat dry, skip prep to periwound, lightly pack with AG, cover with gauze, abd and wrap dailywound consult for carefu up with [facility] infectious diseasecbc , bmp, crp, esr weekly on wednesdays PT/OT eval and treattyl prn pain, does not want pain medication s Cellulitis 879556690 L03 .90 see above osteo Diabetic foot ulcer 3710 57583 E11.42 see above osteo Neuropathy due to diabetes mellitus 781313947 E11.42 see abovemonit or Acute kidney injury 1466 9001 N17.9 resolved in hosp with reduction of losartan and ivfavoid nephrotoxi c medsmonito r bmp weekly on mon Depressive disorder 3548 9007 F32.A sertraline 50 mg po qd Pressure i njury of sacral region of back 624866485 L89.159 pressure injury to buttocks stage 2( 2 areas of denuded skin and red cheryl area)ns wash, pat dry, and barrier creamcushi onoff load pressuremo nitor for changes Fracture o f neck of femur 7570007 S72.002A surgical repair done on 11/28/23, healing in nicely well approx and no sutures or staplesfu with ortho prn for recent surgical repair of femur fx Jan 09 at 1pm [facility] itor for s/s of infection Charcot's joint of foot 455535782 M14.679 see osteo for wound above [id number] Kellie Padilla MD [address] [address] 01/09/2024 12:36:44 01/10/2024 10:34:09 Osteomyelitis of ankle AND/OR foot 10011596 M86.8X7 Continue cefazolin IV q 8 hrs until 02/11 to complete 6 wk course and probiotic 1 tab BID until 02/18 (7 days after end of abx)F/U with [facility] ID as planned.Mo nitor CBC/BMP/ES R/CRP weekly on Wednesdays and fax to ID.For pain pt wants only APAP 650 mg q 4 hrs prn. Diabetic foot ulcer 3710 31818 L97.519 Continue wound care as ordered.Mo nitor for healing. Fracture o f neck of femur 4853466 S72.002A Recovering well from hemiarthro plasty on 11/28.PT/O T as above.F/U with ortho in 01/09 as planned. Pressure i njury of sacral region of back 202832976 L89.159 Continue wound care as ordered.Mo nitor for healing. Chronic ki dney disease stage 3 330487772 N18.31 Back to baseline.C ontinue to avoid nephrotoxi c meds as able.Monit or labs.Renal consult prn. Diabetes mellitus 076094 09 E11.21 Sugars in good control since here.HgA1C 6.4Continu e lantus 20U qd and SSIMonitor fingerstic ks TID and HgA1C q 3 months. Essential hypertension 78511641 I10 Continues to be in poor control.It appears that losartan was not transcribe d from d/c summary to admission orders here, has only been getting hydralazin e 25 mg BID since hereWill restart losartan 50 mg qd (lowered due to CKD).Monit or BP and labs. Mixed hyperlipidemia 267 575044 E78.2 Continue rosuvastat in 5 mg qdMonitor labs as outpt. Gastroesop hageal reflux disease without esophagitis 396767290 K21.9 No current sxs, on no meds.Monit or for GI sxs. Goiter 3472229 E04.8 Bx done 11/23/23 was benign.F/U with endo as planned. Anemia 984451755 D50.8 Mild at baseline, likely due to CKD.Worsen ed after hip surgery as expected.C ontinue FeSO4 325 mg qdMonitor labs Seasonal allergy 5832773 04 J30.2 No current sxs.Contin ue loratadine 10 mg qdMonitor sxs. Constipation 07670757 K5 9.09 Continue bowel meds as ordered.Mo nitor bowel function. Neuropathy due to diabetes mellitus 430007752 E11.42 On no meds specifical ly for neuropathy .Continue APAP as above.Murray tor sxs. Depressive disorder 9188 9007 F33.8 Mood good today.Cont inue sertraline 50 mg qdMonitor mood.Psych consult prn. Asthenia [id number] R53.1 Remains deconditio jamal.Needs PT/OT for strengthen ing, balance, gait training, safety and function.C ontinue fall precaution s.Monitor for safety. Non-toxic multinodular goiter 08566178 E04.2 Bx done 11/23/23 was benign.F/U with endo as planned. [id number] Coco Patiño NP [facility] [address] [place] [address] 01/18/2024 12:22:55 01/19/2024 11:21:15 Osteomyelitis of ankle AND/OR foot 54272229 M86.8X7 labs improving this weekContin uecefazoli n IV q 8 hrs until 02/11 to complete 6 wk courseprob iotic 1 tab BID until 02/18 (7 days after end of abx)F/[facility] with [facility] as planned.Ross donovan CBC/BMP/ES R/CRP weekly on Wednesdays and fax to ID.For pain pt wants only APAP 650 mg q 4 hrs prn. Diabetic foot ulcer 3710 82651 L97.519 Continue wound care as ordered.Ross donovan for healing. Asthenia [id number] R53.1 Remains deconditio jamal.Needs PT/OT for strengthen ing, balance, gait training, safety and function.C ontinue fall precaution s.Monitor for safety. Fracture o f neck of femur 8211778 S72.002A Recovering well from hemiarthro plasty on 11/28.PT/O T as above.F/U with ortho in 01/09 as planned. ? if she went to appt? Pressure i njury of sacral region of back 699522436 L89.159 Continue wound care as ordered.Ross donovan for healing. Essential hypertension 86111467 I10 Continues to be in poor control, with elevated bpsconthyd ralazine 25 mg BID01/17 losartan will increase to 100 mg po qd (home dose)as her bp has been high and venkatesh is improving slightlyMo nitor BP and labs. Chronic ki dney disease stage 3 837117765 N18.31 Back to baseline.C ontinue to avoid nephrotoxi c meds as able.Monit or labs.Renal consult prn. Diabetes mellitus 185021 09 E11.21 Sugars in good control since here.HgA1C 6.4Continu elantus 20U qd and SSIMonitor fingerstic ks TID and HgA1C q 3 months. Gastroesop hageal reflux disease without esophagitis 396571025 K21.9 No current sxs, on no meds.01/17 will start zofran and omeprazole for vomiting and nausea latelyMoni tor for GI sxs. Anemia 388025412 D50.8 Mild at baseline, likely due to CKD.Worsen ed after hip surgery as expected.C ontinue FeSO4 325 mg qdMonitor labs Depressive disorder 3548 9007 F33.8 Mood good today.Cont inue sertraline 50 mg qdMonitor mood.Psych consult prn. Recurrent falls 62962093 2 R29.6 reports loosing balance and fall on 01/16 without injurylike ly related to right foot ulcer/bruce ncePT OT eval and treatmonit or and supportive caresafety precaution s [id number] JOHN KAYE NP [address] [place] [address] 01/25/2024 10:41:10 01/26/2024 14:22:33 Osteomyelitis of ankle AND/OR foot 43754296 M86.8X7 VS, BS, labs stable.Con tinue:cefa zolin IV q 8 hrs until 02/11 to complete 6 wk courseprob iotic 1 tab BID until 02/18 (7 days after end of abx)APAP prn painF/U with [facility] as planned.Ross donovan CBC/BMP/ES R/CRP weekly on Wednesdays and fax to ID. Diabetic foot ulcer 3710 01600 L97.519 Continue wound care as ordered.Ross donovan for healing. Essential hypertension 16630934 I10 Better control the past week.Nola nue:Hydral azine 25 mg BIDLosarta n 100 mg po qd (increased 01/17, home dose, dose reduced due to VENKATESH)Monito r BP and labs. Asthenia 50151123 R53.1 Remains deconditio jamal.Needs PT/OT for strengthen ing, balance, gait training, safety and function.C ontinue fall precaution s.Monitor for safety. Recurrent falls 44445976 2 R29.6 reports loosing balance and fall on 01/16 without injurylike ly related to right foot ulcer/bruce ncePT OT eval and treatmonit or and supportive caresafety precaution s Fracture o f neck of femur 6950862 S72.002A Recovering well from hemiarthro plasty on 11/28.PT/O T as above.F/U with ortho as planned.AP AP prn painMonito r CSM Pressure i njury of sacral region of back 198303859 L89.159 Continue wound care as ordered.Mo nitor for healing. Chronic ki dney disease stage 3 449572090 N18.31 Back to baseline.C ontinue to avoid nephrotoxi c meds as able.Monit or labs.Renal consult prn. Diabetes mellitus 043406 09 E11.21 Sugars in good control since here.HgA1C 6.4Continu elantus 20U qd and SSIMonitor fingerstic ks TID and HgA1C q 3 months. Gastroesop hageal reflux disease without esophagitis 912431997 K21.9 No current sxs, on no meds.01/17 will start zofran and omeprazole for vomiting and nausea latelyMoni tor for GI sxs. Anemia 353716625 D50.8 Mild at baseline, likely due to CKD.Worsen ed after hip surgery as expected.C ontinue FeSO4 325 mg qdMonitor labs Depressive disorder 3548 9007 F33.8 Mood good today.Cont inue sertraline 50 mg qdMonitor mood.Psych consult prn. COVID-19 532804697 U07.1 Just tested positive this am.Resp. sx., mostly mild.Plan -isolation , rest, fluidsMoni tor VS satsSuppor tive care with APAP, robitussin PRNClosely monitor need for O2, dexamethas one, mucinex, molnupirav ir [id number] Coco Patiño NP [address] [address] 02/01/2024 11:35:11 02/02/2024 12:48:48 COVID-19 443526089 U07.1 covid positve on 11/24remai ns testing positive and on isolationi solation, rest, fluidsMoni tor vitalsSupp ortive care with APAP, robitussin PRNClosely monitor need for O2, dexamethas one, mucinex, molnupirav ir Osteomyeli tis of ankle AND/OR foot 98776557 M86.8X7 labs improvingC ontinue:ce fazolin IV q 8 hrs until 02/11 to complete 6 wk courseprob iotic 1 tab BID until 02/18 (7 days after end of abx)APAP prn painF/U with [facility] as planned.Mo tracyor CBC/BMP/ES R/CRP weekly on Wednesdays and fax to ID. Diabetic foot ulcer 3710 26119 L97.519 Continue wound care as ordered.Mo tracyor for healing. Essential hypertension 91458602 I10 bp stable with increase of losartan back to home doseContin ue:Hydrala zine 25 mg BIDLosarta n 100 mg po qd (increased 01/17, home dose, dose reduced due to VENKATESH in hosp)Monit or BP and labs. Asthenia 13517510 R53.1 Remains deconditio jamal.Needs PT/OT for strengthen ing, balance, gait training, safety and function.C ontinue fall precaution s.Monitor for safety. Recurrent falls 71162980 2 R29.6 reports loosing balance and fall on 01/16 without injury, no further fallslikel y related to right foot ulcer/bruce ncePT OT eval and treatmonit or and supportive caresafety precaution s Fracture o f neck of femur 0689579 S72.002A Recovering well from hemiarthro plasty on 11/28.PT/O T as above.F/U with ortho as planned.AP AP prn painMonito r CSM Pressure i njury of sacral region of back 597389477 L89.159 Continue wound care as ordered.Ross donovan for healing. Chronic ki dney disease stage 3 507106168 N18.31 Back to baseline.C ontinue to avoid nephrotoxi c meds as able.Monit or labs.Renal consult prn. Diabetes mellitus 689130 09 E11.21 Sugars in good control since here. 114-171 stableHgA1 C 6.4Continu elantus 20U qd and SSIMonitor fingerstic ks TID and HgA1C q 3 months. Gastroesop hageal reflux disease without esophagitis 581866153 K21.9 No current sxs, on no meds.cont zofran and omeprazole for vomiting and nausea latelycons ider decreasing zofran and omeprazole in the near futureMoni tor for GI sxs. Anemia 146193505 D50.8 Mild at baseline, likely due to CKD.Worsen ed after hip surgery as expected.C ontinueFeS O4 325 mg qdMonitor labs Depressive disorder 3548 9007 F33.8 Mood good today.Cont inuesertra line 50 mg qdMonitor mood.Psych consult prn. [id number] Kellie Padilla MD [address] [address] 02/13/2024 16:07:50 02/15/2024 13:31:01 Essential hypertension 51958929 I10 Was good for awhile, now SBP has been very high a few times, other times ok.Since high readings are almost always at night, will increase evening dose of hydralazin e to 50 mg, keep AM dose at 25 mg and continue losartan 100 mg qd.Will ask for BPs in AM and around 6 pm, and not to wake pt to check BP.Monitor BP and labs. Osteomyeli tis of ankle AND/OR foot 96347234 M86.8X7 ESR increased last week, but CRP good. Could be due to foot wound.Comp leted abx yest, continue probiotic 1 tab BID until 02/18 (7 days after end of abx)F/U with [facility], Dr. Carlton, [phone] 22, will have nursing call on 02/14 to see if she needs f/u.Monito r CBC/BMP/ES R/CRP weekly on Wednesdays and fax to ID.Continu e APAP 650 mg q 4 hrs prn for pain. [id number] Coco Patiño NP [address] [address] 02/16/2024 11:54:27 02/19/2024 13:17:38 Essential hypertension 89486727 I10 seems to have intermitte nt high bpwith recent adjustment sconthydra lazine 50 mg qhshydrala zine 25 mg po amlosartan 100 mg qd.Monitor BP and labs.cont adjusting prn Osteomyeli tis of ankle AND/OR foot 09005442 M86.8X7 labs and infection resolvingC ompleted abx IVcontinue probiotic 1 tab BID until 02/18 (7 days after end of abx)F/U with [facility], Dr. Carlton, [phone] 22Monitor CBC/BMP/ES R/CRP weekly on Wednesdays and fax to ID.? if see followed upContinue APAP 650 mg q 4 hrs prn for pain.monit or for s/s of infection Diabetic foot ulcer 3710 13534 L97.519 Continue wound care as ordered.Mo nitor for healing. Asthenia 91236926 R53.1 Remains deconditio jamal.Needs PT/OT for strengthen ing, balance, gait training, safety and function.C ontinue fall precaution s.Monitor for safety. Fracture o f neck of femur 5385507 S72.002A Recovering well from hemiarthro plasty on 11/28.PT/O T as above.F/U with ortho as planned.AP AP prn painMonito r CSM Pressure i njury of sacral region of back 049195966 L89.159 Continue wound care as ordered.Mo nitor for healing. Chronic ki dney disease stage 3 719094013 N18.31 Back to baseline.C ontinue to avoid nephrotoxi c meds as able.Monit or labs.Renal consult prn. Diabetes mellitus 595526 09 E11.21 Sugars in good control since here. stableHgA1 C 6.4Continu elantus 20U qd and SSIMonitor fingerstic ks TID and HgA1C q 3 months. Gastroesop hageal reflux disease without esophagitis 203308982 K21.9 No current sxs, on no meds.cont omeprazole qdzofran 4 mg po prn q 6Monitor for GI sxs. Anemia 573029565 D50.8 Mild at baseline, likely due to CKD. stableWors ened after hip surgery as expected.C ontinueFeS O4 325 mg qdMonitor labs Depressive disorder 3548 9007 F33.8 Mood good today.Cont inuesertra line 50 mg qdMonitor mood.Psych consult prn. Non-toxic multinodular goiter 30649694 E04.2 hx ofpt requesting records from [facility] regarding left goiter biopsy done on 11/23/23, monitor for results and re request today [id number] Coco Patiño NP [address] [address] 02/19/2024 08:19:03 02/21/2024 14:18:17 Essential hypertension 34324583 I10 seems to have intermitte nt high bpwith recent adjustment scont// increase hydralazin e to 50 mg bidcontlos abigail 100 mg qd.Monitor BP and labs.cont adjusting prn Osteomyeli tis of ankle AND/OR foot 56100180 M86.8X7 labs and infection resolvingC ompleted abx IVcontinue probiotic 1 tab BID until 02/18 (7 days after end of abx)F/U with [facility], Dr. Carlton, [phone] 22Monitor CBC/BMP/ES R/CRP weekly on Wednesdays and fax to ID.? if see followed upContinue APAP 650 mg q 4 hrs prn for pain.monit or for s/s of infection remove picc line, second request Diabetic foot ulcer 3710 45668 L97.519 Continue wound care as ordered.Mo nitor for healing. Asthenia 06545948 R53.1 Remains deconditio jamal.Needs PT/OT for strengthen ing, balance, gait training, safety and function.C ontinue fall precaution s.Monitor for safety. Fracture o f neck of femur 1251363 S72.002A Recovering well from hemiarthro plasty on 11/28.PT/O T as above.F/U with ortho as planned.AP AP prn painMonito r CSM Pressure i njury of sacral region of back 648640556 L89.159 Continue wound care as ordered.Mo nitor for healing. Chronic ki dney disease stage 3 494722917 N18.31 Back to baseline.C ontinue to avoid nephrotoxi c meds as able.Monit or labs.Renal consult prn. Diabetes mellitus 910919 09 E11.21 Sugars in good control since here. stableHgA1 C 6.4Continu elantus 20U qd and SSIMonitor fingerstic ks TID and HgA1C q 3 months. Gastroesop hageal reflux disease without esophagitis 972786578 K21.9 No current sxs, on no meds.cont omeprazole qdzofran 4 mg po prn q 6Monitor for GI sxs. Anemia 599832251 D50.8 Mild at baseline, likely due to CKD. stableWors ened after hip surgery as expected.C ontinueFeS O4 325 mg qdMonitor labs Depressive disorder 3548 9007 F33.8 Mood good today.Cont inuesertra line 50 mg qdMonitor mood.Psych consult prn. Non-toxic multinodular goiter 51222417 E04.2 hx ofpt requesting records from [facility] regarding left goiter biopsy done on 11/23/23, monitor for results and re request today02/18 request biopsy [id number] Coco Patiño NP [address] [address] 02/22/2024 08:40:30 02/23/2024 10:26:46 Essential hypertension 35677394 I10 seems to have intermitte nt high bpwith recent adjustment s improvingc onthydrala zine to 50 mg bidlosarta n 100 mg qd.Monitor BP and labs.cont adjusting prn Osteomyeli tis of ankle AND/OR foot 63759430 M86.8X7 labs and infection resolvingC ompleted abx IVcontinue probiotic 1 tab BID until 02/18 (7 days after end of abx)F/U with [facility], Dr. Carlton, [phone] 22Monitor CBC/BMP/ES R/CRP weekly on Wednesdays and fax to ID.? if see followed upContinue APAP 650 mg q 4 hrs prn for pain.monit or for s/s of infectionp icc removed on 02/18 Diabetic foot ulcer 3710 33499 L97.519 Continue wound care as ordered.Mo nitor for healing. Asthenia 37090224 R53.1 Remains deconditio jamal.Needs PT/OT for strengthen ing, balance, gait training, safety and function.C ontinue fall precaution s.Monitor for safety. Fracture o f neck of femur 5468076 S72.002A Recovering well from hemiarthro plasty on 11/28.PT/O T as above.F/U with ortho as planned.AP AP prn painfu with Dr schmidt on 02/22, family to take her Pressure i njury of sacral region of back 918681518 L89.159 Continue wound care as ordered.Mo nitor for healing. Chronic ki dney disease stage 3 586329706 N18.31 Back to baseline.C ontinue to avoid nephrotoxi c meds as able.Monit or labs.Renal consult prn. Diabetes mellitus 335379 09 E11.21 Sugars in good control since here. stableHgA1 C 6.4Continu elantus 20U qd and SSIMonitor fingerstic ks TID and HgA1C q 3 months. Gastroesop hageal reflux disease without esophagitis 236278803 K21.9 No current sxs, on no meds.cont omeprazole qdzofran 4 mg po prn q 6Monitor for GI sxs. Anemia 135912512 D50.8 Mild at baseline, likely due to CKD. stableWors ened after hip surgery as expected.C ontinueFeS O4 325 mg qdMonitor labs Depressive disorder 3548 9007 F33.8 Mood good today.Cont inuesertra line 50 mg qdMonitor mood.Psych consult prn. Non-toxic multinodular goiter 68577646 E04.2 hx ofpt requesting records from [facility] regarding left goiter biopsy done on 11/23/23, results obtained and benign.she does have large left neck goiter and needs fu02/22/24 [place] [facility] [place] today [id number] JOHN KAYE NP [address] [address] 02/28/2024 13:35:19 02/29/2024 16:23:48 Essential hypertension 87710478 I10 Still running on the higher sideCurren tly on:hydrala zine to 50 mg bid - just increased / - consider tid dosinglosa rtan 100 mg qd.Monitor BP and labs.cont adjusting prn Non-toxic multinodular goiter 90167099 E04.2 hx ofpt requesting records from [facility] regarding left goiter biopsy done on 11/23/23, results obtained and benign.she does have large left neck goiter and needs fu02/22/24 [place] [facility] [place] Osteomyeli tis of ankle AND/OR foot 04864605 M86.8X7 labs and infection resolvingC ompleted abx IV and probioticF /U with [facility], Dr. Carlton, [phone] 22Monitor CBC/BMP/ES R/CRP weekly on Wednesdays and fax to ID.Continu e APAP 650 mg q 4 hrs prn for pain.monit or for s/s of infectionp icc removed on 02/18 Diabetic foot ulcer 3710 84903 L97.519 Continue wound care as ordered.Mo nitor for healing. Asthenia 05432569 R53.1 Remains deconditio jamal.Needs PT/OT for strengthen ing, balance, gait training, safety and function.C ontinue fall precaution s.Monitor for safety. Fracture o f neck of femur 9203407 S72.002A Recovering well from hemiarthro plasty on 11/28.PT/O T as above.F/U with ortho as planned.AP AP prn painfu with Dr schmidt on 02/22, requesting office note for review Pressure i njury of sacral region of back 115571414 L89.159 Continue wound care as ordered.Mo nitor for healing. Chronic ki dney disease stage 3 733965965 N18.31 Back to baseline.C ontinue to avoid nephrotoxi c meds as able.Monit or labs.Renal consult prn. Diabetes mellitus 236809 09 E11.21 Sugars in good control since here. stableHgA1 C 6.4Continu elantus 20U qd and SSIMonitor fingerstic ks TID and HgA1C q 3 months. Gastroesop hageal reflux disease without esophagitis 599730742 K21.9 No current sxs, on no meds.cont omeprazole qdzofran 4 mg po prn q 6Monitor for GI sxs. Anemia 132691342 D50.8 Mild at baseline, likely due to CKD. stableWors ened after hip surgery as expected.C ontinueFeS O4 325 mg qdMonitor labs Depressive disorder 3548 9007 F33.8 Mood good today.Cont inuesertra line 50 mg qdMonitor mood.Psych consult prn. [id number] Coco Patiño NP [address] [address] 02/29/2024 13:36:58 03/01/2024 15:08:25 Essential hypertension 24135960 I10 BP high for some time now even with med increases, 165/80 and running on high side still increase hydralazin e from 50 mg bid to tidcontlos abigail 100 mg qd.Monitor BP and labs.cont adjusting prn Non-toxic multinodular goiter 46542576 E04.2 hx ofpt requesting records from [facility] regarding left goiter biopsy done on 11/23/23, results obtained and benign with less than 4% malignancy rateshe does have large left neck goiter and needs fu02/22/24 [place] [facility] [place] Osteomyeli tis of ankle AND/OR foot 42211468 M86.8X7 labs and infection resolvingf ollowed by wound team hereComple mikal abx IV and probioticF /U with [facility], Dr. Carlton, [phone] 22Monitor CBC/BMP/ES R/CRP weekly on Wednesdays and fax to ID.Continu eAPAP 650 mg q 4 hrs prn for pain.monit or for s/s of infectionp icc removed on 02/18 and no fevers, chills or s/s of infection Diabetic foot ulcer 3710 86151 L97.519 Continue wound care as ordered.Ross donovan for healing. Asthenia 81807115 R53.1 Remains deconditio jamal.Needs PT/OT for strengthen ing, balance, gait training, safety and function.C ontinue fall precaution s.Monitor for safety. Fracture o f neck of femur 3283938 S72.002A Recovering well from hemiarthro plasty on 11/28.PT/O T as above.F/U with ortho as planned.AP AP prn painfu with Dr schmidt on 02/22, requesting office note for review, pt states no new changes Pressure i njury of sacral region of back 493532911 L89.159 Continue wound care as ordered.Mo nitarden for healing. Chronic ki dney disease stage 3 831510461 N18.31 Back to baseline.C ontinue to avoid nephrotoxi c meds as able.Monit or labs.Renal consult prn. Diabetes mellitus 018005 09 E11.21 Sugars in good control since here. stable 130s latelyHgA1 C 6.4Continu elantus 20U qd and SSIMonitor fingerstic ks TID and HgA1C q 3 months. [id number] Gilson Davidson MD [address] [address] 03/06/2024 10:15:20 03/07/2024 11:03:13 Essential hypertension 56437639 I10 hydralazin e recently increasedm onitor bp and titrate if remains elevated Osteomyeli tis of ankle AND/OR foot 93686907 M86.8X7 completed IV abxstill with right foot ulcer requiring wound carecoordi panchito with ID and update with concerns Asthenia 05883629 R53.1 ambulating short distance with walker and therapyhow ever still requiring 24/7 carePatien t lives alone currently unable to be cared for in communityI nsurance is dischargin g however social work is assisting with [facility] Chronic ki dney disease stage 3 253520650 N18.31 monitor renal functionav oid nephrotoxi c meds as ablenephro consult prn [id number] Coco Patiño NP [address] [address] 03/15/2024 08:39:43 03/26/2024 13:38:06 Osteomyelitis of ankle AND/OR foot 65393531 M86.8X7 completed IV abxstill with right foot ulcer requiring wound care team and now new malodor and callous open with drainage start doxycyclin e 100 mg po bid x 10days with probiotic and reevalfu with ID and update with concerns prnwound team to follow for debridemen t and local carefollow bmp and cbc weekly Asthenia 42600243 R53.1 ambulating short distance with walker and therapyhow ever still requiring 24/7 carePatien t lives alone currently [facility] o[facility] work to cont for safe dc plan with ready, she is currently requiring abx for foot infection and has open wound to right charcot foot causing balance issues Essential hypertension 03315978 I10 bps 130s post meds with recent increases of meds belowhydra lazine 50 mg po tidlosarta n 200 mg po qdmonitor bp and titrate if remains elevated Chronic ki dney disease stage 3 203247758 N18.31 monitor renal functionav oid nephrotoxi c meds as ablenephro consult prn Nausea, vo miting and diarrhea 2710220 R11.2 resolved with mild case of nausea, vomiting, and diarrheazo andreina and immodium prnencoura ge po fluidsmoni tor for need for iVF [id number] JOHN KAYE, FRE[place] [address] [place] [address] 03/27/2024 09:18:24 03/28/2024 13:24:31 Osteomyelitis of ankle AND/OR foot 10101368 M86.8X7 completed IV abxstill with right foot ulcer - referred back to wound care due to decline in status.Com pleted doxycyclin e x 10 dWound debrided 03/26 - now with granular wound bed.Contin ue collagen and alginate dressing qd.VSS except for elevated BPfu with ID and update with concerns prnfollow bmp and cbc weekly Essential hypertension 48566852 I10 BP still runs on the higher side.Curre ntly on:hydrala zine 50 mg po tid -> increase to qid/q 6 hrslosarta n 200 mg po qdmonitor bp and titrate if remains elevated Asthenia 51092792 R53.1 ambulating short distance with walker and therapyhow ever still requiring 05/09 carePatien t lives alone currently unable to be cared for in communitys ocial work to cont for safe dc plan with ready, she is currently requiring abx for foot infection and has open wound to right charcot foot causing balance issues Chronic ki dney disease stage 3 350270478 N18.31 monitor renal functionav oid nephrotoxi c meds as ablenephro consult prn Non-toxic multinodular goiter 56739658 E04.2 hx ofpt requesting records from [facility] [place] left goiter biopsy done on 11/23/23, results obtained and benign.she does have large left neck goiter and needs fu02/22/24 [place] [facility] [place], appt. set for 04/19 Diabetic foot ulcer 3710 02510 L97.519 Continue wound care as ordered. see above.Murray tor for healing. Fracture o f neck of femur 9674651 S72.002A Recovering well from hemiarthro plasty on 11/28.F/U with ortho as planned.AP AP prn pain Diabetes mellitus 778653 09 E11.21 Sugars in good control since here. stableHgA1 C 6.4Continu elantus 20U qd and SSIMonitor fingerstic ks TID and HgA1C q 3 months. Gastroesop hageal reflux disease without esophagitis 307821611 K21.9 No current sxs, on no meds.cont omeprazole qdzofran 4 mg po prn q 6Monitor for GI sxs. Anemia 694379137 D50.8 Mild at baseline, likely due to CKD. stableWors ened after hip surgery as expected.C ontinueFeS O4 325 mg qdMonitor labs Depressive disorder 3548 9007 F33.8 Mood good today.Cont inuesertra line 50 mg qdMonitor mood.Psych consult prn. Health Concerns Section Related Observation LastModified by Organization Detai ls LastModified Time None Recorded Concern Status LastModified by Organization Details LastModified Time None Recorded Advance Directives Directive Y: cpr, transfer to hosp, ort term dialysis, art nutrition and hydration okay NO intubationsigned Payers Encounter Date Sequence Insurance Name Policy Number Policy Hughes Covered Member ID Hughes Member ID Guarantor Name 02/28/2024 1 [place] HMO) [id number] Olga Kat [id number] Olga Kat 02/29/2024 1 [place] HMO) [id number] Olga Kat [id number] Olga Kat 03/06/2024 1 [place] HMO) [id number] Olga Kat [id number] Ogla Kat 03/15/2024 1 [place] HMO) [id number] Olga Kat [id number] Olga Kat 03/27/2024 1 [place] HMO) [id number] Olga Kat [id number] Olga Kat Notes Date Note Type Note Provider Name and Address Organization Details Recorded Time 02/28/2024 text/html ANDREA is seen today for an acute rounding visit. She is a 63 yo woman here for rehab after 2 recent acute hospitalizations for a left hip fx s/p hemiarthroplasty, right foot osteo, and cellulitis requiring IV abx. She has completed her IV abx., and is to follow up with ID. She had follow up with ORtho on 02/22, but no OV note scanned into EMR yet.BPs elevated - BP meds adjusted. Readings better but still remain on the higher side.BS in good control, mostly 100s.Labs today stable.Referred to [facility] for assessment of chronic left neck mass. Upon exam, ANDREA is up in her w/c in her room, alert, NAD. Continues to work with rehab. Pain controlled, no other complaints or concerns at this time. Her PMH includes HTN (poor control), AODM with neuropathy, CKD stage 3A, multinodular goiter, HLD, GERD, anemia, PVD, hx of right foot osteo, and hx of left femoral fx s/p hemiarthroplasty. JOHN KAYE NP [address] [facility], [address], [place], [address], [employer] 02/28/2024 13:53:17 02/29/2024 text/html Pt seen today fo r an acute rounding visit. Her PMH includes HTN (poor control), AODM with neuropathy, CKD stage 3A, multinodular goiter, HLD, GERD, anemia, PVD, hx of right foot osteo, and hx of left femoral fx s/p hemiarthroplasty. Pt is a 63 yo woman here for rehab after 2 recent acute hospitalizations for a left hip fx s/p hemiarthroplasty, right foot osteo, and cellulitis requiring IV abx. BP elevated at 165/80 today and high recently. Will increase hydralazine to 50 mg po tid. and monitor. She has completed her IV abx., and is to follow up with ID. Labs faxed weekly. She had follow up with Ortho on 02/[address] Barry for her left hemiarthroplasty, but no OV note yet. Pt states no changes and doing well. BS in good control, mostly 100s. On exam, ANDREA is up in her w/c in her room, alert, NAD. Continues to work with rehab. Pain controlled, no other complaints or concerns at this time. She reports her BP is usually high and seems open to increasing meds today. Coco Patiño NP [address] [facility], [address], [place], [address], [employer] 02/29/2024 19:32:44 03/06/2024 text/html Patient is a 63 yo female resident seen for routine rounding note. Patient initially admit for tx right foot osteomyelitis. Patient still requiring wound care to right foot. Is able to ambulate short distant with walker and therapy however still requiring 24/7 care. Patient lives alone currently unable to be cared for in community. Insurance is discharging however social work is assisting with [facility] Gilson Davidson MD [address] [facility], [address], [place], [address], [facility] 03/06/2024 10:23:22 03/15/2024 text/html Pt seen today fo r an acute rounding visit. Her PMH includes HTN (poor control), AODM with neuropathy, CKD stage 3A, multinodular goiter, HLD, GERD, anemia, PVD, hx of right foot osteo, and hx of left femoral fx s/p hemiarthroplasty. BJ is a 63 yo woman here for rehab after 2 recent acute hospitalizations for a left hip fx s/p hemiarthroplasty, right foot osteo, and cellulitis requiring IV abx. She has completed her IV abx., and is to follow up with ID. Labs faxed weekly. While seen today she is noted to have an open callous with yellow necrotic tissue and serosangenous drainage on the bottom of her right charcot foot which was healed in. She is followed by wound for this wound. Due to the new drainage and new odor will treat with doxycycline for 10 days and cont to follow with ID as needed. On exam, She denies any other concerns. Denies pain. Her labs show wbc trending up and will treat with doxycycline and probitic for 10 days. She reports she had the GI virus with nausea and vomiting resolving. She seems hydrated with mild course. Vitals and blood sugars in good control. BP is on the higher side despite mutliple titrations of meds. Will treat infection and reeval bp as her BP does decrease to 130/60s after bp meds. She continues to ambulate short distant with walker and therapy however still requiring 24/7 care. Patient lives alone currently unable to be cared for in community. Social work continues to follow for safe dc plan or transition Coco Patiño NP [address] [facility], [address], [place], [address], [facility] 03/22/2024 11:53:13 03/27/2024 text/html ANDREA is seen today for a 90 day routine visit. She is a 63 yo woman here for rehab after 2 recent acute hospitalizations for a left hip fx s/p hemiarthroplasty, right foot osteo, and cellulitis requiring IV abx. She has completed her IV abx., ID and Ortho involved with care.Seen last week, and due to decline in wound, doxy started x 10 d and referred to Wound team.Seen by Wound Team yesterday, R 5th mth healing, R heel wound sharp debrided slough cleared revealing granular wound bed. No s/s infection reported. Current tx. is now collagen and Alginate AG qd.Labs being trended, stable on 03/20. BPs remain elevated despite med adjustment.BS in good control, mostly 100s.Referred to [facility] for assessment of chronic left neck mass, has appt. 04/19. Upon exam, ANDREA is up in her w/c in her room, alert, NAD.No longer working with rehab.Pain controlled, no other complaints or concerns at this time. Her PMH includes HTN (poor control), AODM with neuropathy, CKD stage 3A, multinodular goiter, HLD, GERD, anemia, PVD, hx of right foot osteo, and hx of left femoral fx s/p hemiarthroplasty. JOHN KAYE, WATER TAXI OPERATOR [address] [facility], [address], [place], [address], [facility] 03/27/2024 09:56:45 OBGyn Episode No OBEpisode recorded.
--- OUTSIDE RECORDS SUMMARY | 2024-04-02 10:24 | XMS_ITS ---
Author Organization [facility] Address [address] [facility] [place] [address] Care Team Providers Care Dude Ranch Manager Name Role Phone Kristin Bellamy Primary Care Provider Unavailab Neri Barragan Unavailable [phone] Encounters Encounter [facility] Date [facility] [address] [facility] Neri Tinoco Plan Of Treatment No Information Progress Notes * Olga KATDOB:1960 (63 yo F)Acc No.[id number]:11/30/2023 Progress Note Patient:Jaden RENNERradhika Provider:?Neri Tinoco DPM :1960???Age:63 Y???Sex:Female D ate:11/30/2023 Address:[place] Pcp:Kristin Bellamy Subjective: * Chief Complaints: * ??? * Medical History:? Objective: * Vitals:? Assessment: Plan: * Treatment: * Images: * The named appointment provid er may or may not be the originator of this progress note, and it is not deemed complete until electronically signed by the appointment provider. Sign off status: Pending * Provider:?Neri Tinoco DPM Date:?2023 Generated for Dee franco/Juan/eTransmitting on:?04/02/2024 10:23 AM EST
--- OUTSIDE RECORDS SUMMARY | 2024-04-02 10:24 | XMS_ITS | Encounter Summary ---
Author Organization [facility] Address [address] [place] [address] Care Team Providers Care Public Information Relations Manager Name Role Phone Kristin Bellamy MD Primary Care Provider [phone] Encounter Details Date Type Department Care Team (Late st Contact Info) Description 02/27/2024 Lab Requisition [facility] - Main Lab [address] [facility] [place] [address] Gilson Davidson MD [address] [facility] [address] [place], [address] Non-pressure chronic ulcer of unspecified part of left lower leg with unspecified severity (CMS/HCC); Small cell b-cell lymphoma, spleen (CMS/HCC); Other toxic encephalopathy; Type 2 diabetes mellitus without complications (CMS/HCC); [...] Date/Time Associated Diagnosis Comments SEDIMENTATION RATE Routine 02/28/2024 6: 00 AM EST Non-pressure chronic ulcer of unspecified part of left lower leg with unspecified severity (CMS/HCC) Small cell b-cell lymphoma, spleen (CMS/HCC) Other toxic encephalopathy Type 2 diabetes mellitus without complications (CMS/HCC) Essential (primary) hypertension COMPLETE BLOOD COUNT Routine 02/28/2024 6:00 AM EST Non-pressure chronic ulcer of unspecified part of left lower leg with unspecified severity (CMS/HCC) Small cell b-cell lymphoma, spleen (CMS/HCC) Other toxic encephalopathy Type 2 diabetes mellitus without complications (CMS/HCC) Essential (primary) hypertension C-REACTIVE PROTEIN Routine 02/28/2024 6: 00 AM EST Non-pressure chronic ulcer of unspecified part of left lower leg with unspecified severity (CMS/HCC) Small cell b-cell lymphoma, spleen (CMS/HCC) Other toxic encephalopathy Type 2 diabetes mellitus without complications (CMS/HCC) Essential (primary) hypertension BASIC METABOLIC PANEL Routine 02/28/2024 6:00 AM EST Non-pressure chronic ulcer of unspecified part of left lower leg with unspecified severity (CMS/HCC) Small cell b-cell lymphoma, spleen (CMS/HCC) Other toxic encephalopathy Type 2 diabetes mellitus without complications (CMS/HCC) Essential (primary) hypertension documented in this encounter Results * C-reactive protein (02/28/2024 6:00 AM EST) Pathologist [facility] C-Reactive Protein 0.44 <=0.50 mg/dL LAB CHEMISTRY METHOD 02/28/2024 8:44 AM EST [facility] Blood Venous blood specimen / Unknown Venipuncture / Unknown 02/28/2024 6:00 AM EST 02/28/2024 7:59 AM EST us Gilson Davidson MD LAB BLOOD ORDERABLES Final Resul t [facility] [address] [place] [address], * (ABNORMAL) Sedimentation rate (02/28/2024 6:00 AM EST) Sed Rate 51(H) 0 - 30 mm/hr LAB HEMETOLOGY METHOD 02/28/2024 8:40 AM EST [facility] Blood Venous blood specimen / Unknown Venipuncture / Unknown 02/28/2024 6:00 AM EST 02/28/2024 7:59 AM EST us Gilson Davidson MD LAB BLOOD ORDERABLES Final Resul t [facility] [address] [place] [address], * (ABNORMAL) Basic metabolic panel (02/28/2024 6:00 AM EST) Sodium 140 133 - 145 mmol/L LAB CHEMISTRY METHOD 02/28/2024 8:42 AM [facility] Potassium 4.6 3.5 - 5.5 mmol/L LAB CHEMISTRY METHOD 02/28/2024 8:42 AM [facility] Chloride 107 96 - 110 mmol/L LAB CHEMISTRY METHOD 02/28/2024 8:42 AM [facility] CO2 28 21 - 32 mmol/L LAB CHEMISTRY METHOD 02/28/2024 8:42 AM [facility] Anion Gap 5 3 - 11 LAB CHEMISTRY METHOD 02/28/2024 8:42 AM [facility] Glucose 99 70 - 100 mg/dL LAB CHEMISTRY METHOD 02/28/2024 8:42 AM [facility] BUN 28(H) 5 - 25 mg/dL LAB CHEMISTRY METHOD 02/28/2024 8:42 AM [facility] Creatinine 1.39(H) 0.50 - 1.10 mg/dL LAB CHEMISTRY METHOD 02/28/2024 8:42 AM [facility] eGFR 43(L) >=60 mL/min/1. 73m2 LAB CHEMISTRY METHOD 02/28/2024 8:42 AM [facility] Comment:Calculation based on the??Chronic Kidney Disease Epidemiology Collaboration (CKD-EPI) equation refit??without adjustment for race. BUN/Creatinine Ratio 20.1 LAB CHEMISTRY METHOD 02/28/2024 8:42 AM [facility] Calcium 8.9 8.5 - 10.5 mg/dL LAB CHEMISTRY METHOD 02/28/2024 8:42 AM [facility] Blood Venous blood specimen / Unknown Venipuncture / Unknown 02/28/2024 6:00 AM EST 02/28/2024 7:59 AM EST us Gilson Davidson MD LAB BLOOD ORDERABLES Final Resul t [facility] [address] [place] [address], * (ABNORMAL) Complete blood count (02/28/2024 6:00 AM EST) WBC 6.7 4.8 - 10.8 K/mcL LAB HEMETOLOGY METHOD 02/28/2024 8:24 AM [facility] RBC 3.90 3.80 - 4.80 M/[facility] LAB HEMETOLOGY METHOD 02/28/2024 8:24 AM [facility] Hemoglobin 10.7(L) 11.5 - 16.0 g/dL LAB HEMETOLOGY METHOD 02/28/2024 8:24 AM [facility] Hematocrit 33.6(L) 35.0 - 47.0 % LAB HEMETOLOGY METHOD 02/28/2024 8:24 AM [facility] MCV 86.8 79.0 - 98.0 FL LAB HEMETOLOGY METHOD 02/28/2024 8:24 AM [facility] MCH 27.6 27.0 - 32.0 pcg LAB HEMETOLOGY METHOD 02/28/2024 8:24 AM [facility] MCHC 31.8(L) 32.0 - 37.0 g/dL LAB HEMETOLOGY METHOD 02/28/2024 8:24 AM EST [facility] RDW 14.3 11.0 - 15.0 % LAB HEMETOLOGY METHOD 02/28/2024 8:24 AM [facility] Platelets 411(H) 130 - 400 K/mcL LAB HEMETOLOGY METHOD 02/28/2024 8:24 AM [facility] MPV 10.0 7.0 - 11.0 FL LAB HEMETOLOGY METHOD 02/28/2024 8:24 AM [facility] NRBC 0.0 <1.0 % LAB HEMETOLOGY METHOD 02/28/2024 8:24 AM [facility] NRBC Absolute 0.00 <0.10 K/mcL LAB HEMETOLOGY METHOD 02/28/2024 8:24 AM [facility] Blood Venous blood specimen / Unknown Venipuncture / Unknown 02/28/2024 6:00 AM EST 02/28/2024 7:59 AM EST us Gilson Davidson MD LAB BLOOD ORDERABLES Final Resul t [facility] [address] [place] [address], documented in this encounter Visit Diagnoses Diagnosis Non-pressure chronic ulcer of unspecified part of left lower leg with unspecified severity (CMS/HCC) Small cell b-cell lymphoma, spleen (CMS/HCC) Other toxic encephalopathy Type 2 diabetes mellitus without complications (CMS/HCC) Essential (primary) hypertension Unspecified essential hypertension documented in this encounter Care Teams Public Information Relations Manager Relationship Specialty Start Date End Date Kristin Bellamy MD [facility] [address] PCP - General Internal Medicine 11/29/19 documented as of this encounter
--- OUTSIDE RECORDS SUMMARY | 2024-04-02 10:24 | XMS_ITS ---
Author Organization [facility] Address [address] [place] [address] Care Team Providers Care Winterizer Name Role Phone Cheyenneelaine Kristin Primary Care Provider Unavailab Neri Barragan Unavailable [phone] REASON FOR VISIT Referral Needed Encounters Encounter Location Date Provider Diagnosis [facility] [address] [place] [address] 10/07/2023 Neri Tinoco Plan Of Treatment No Information Progress Notes * Olga KATDOB:1960 (63 yo F)Acc No.[id number]:10/07/2023 Patient:?Olga Kat :1960???Age:63 Y???Sex:Female Address:[address] [place], [address] * true * Date:? Generated for Printi ng/Juan/eTransmitting on:?04/02/2024 10:23 AM EST
--- OUTSIDE RECORDS SUMMARY | 2024-04-02 10:24 | XMS_ITS | Clinical Summary ---
Author Organization [address] Address [address] [place] [address] Care Team Providers Care Crushed Stone Grader Name Role Phone Kristin Bellamy MD Primary Care Provider [phone] Allergies Active Allergy Reactions Criticality Noted Date Comments Cephalexin Rash Low 07/31/2017 Penicillin G Rash Low 07/31/2017 Medications metFORMIN (GLUCOPHAGE) 1000 MG tablet Take 1,000 mg by mouth daily.. Active NIFEdipine (PROCARDIA-XL) 30 MG (OSM) 24 hr tablet Take 30 mg by mouth daily.. Active lisinopril (PRINIVIL,ZESTR IL) 10 MG tablet Take 10 mg by mouth daily.. Active hydroCHLOROthia zide (HYDRODIURIL) 25 MG tablet Take 25 mg by mouth daily.. Active insulin lispro (HUMALOG) 100 unit/mL vial Inject under the skin continuous prn (60/40 INSULIN PUMP W/HUMALOG).. Consult your sliding scale for dosing. Active insulin degludec (TRESIBA FLEXTOUCH U-100) 100 unit/mL (3 mL) InPn Inject 30 Units under the skin daily.. Active Active Problems Problem Noted Date Diagnosed Date Charcot foot due to diabetes mellitus (HC Code) (HC CODE) 07/31/2017 Open wound of right foot, initial encounter 07/14 Social History Tobacco Use Types Packs/Day Years Used Date Smoking Tobacco: Former Smokeless Tobacco: Never Comments:quit 2001 Comments Unknown Sex and Gender Information Value Date Recorded Sex Assigned at Not on file Legal Sex Female 9:09 AM EDT Gender Identity Not on file Sexual Orientation Not on file Last Filed Vital Signs Vital Sign Reading Time Taken Comments Blood Pressure 122/68 07/31/2017 1:55 PM EDT Pulse - - Temperature - - Respiratory Rate - - Oxygen Saturation - - Inhaled Oxygen Concentration - - Weight 95.3 kg (210 lb) 07/31/2017 1:55 PM EDT Height - - Body Mass Index - - Plan of Treatment Health Maintenance Due Date Last Done Comments HIV screening 1974 Hepatitis C screening 08/24/1979 Tetanus adult (Td q 10,TDAP once) 1981 Cervical cancer screening 1982 Breast cancer screening 2001 Lipid disorder screening 2001 Colon cancer screening, Colonoscopy 2006 Diabetes screening 2006 Shingles vaccine (Shingrix) (1 of 2 - Shingrix (RZV) 2 Dose Standard Series) 08/24/2011 Influenza vaccine 09/14/2023 Covid-19 vaccine series (1 - 2023-25 season) 2023 Pneumococcal Vaccine (50+ ye ars) (1 of 1 - PCV) 2026 RSV Discussion (1 - 1-dose 7 5+ series) 2036 Meningococcal Vaccine Aged Out No marlyn crow eligible based on patient's age to complete this topic Pneumococcal Vaccine (2 - 49 years) Aged Out No longer eligible based on patient's age to complete this topic Insurance [employer] on file CIGNA on file CIGNA on file Care Teams Crushed Stone Grader Relationship Specialty Start Date End Date Kristin Bellamy MD [address] [phone] PCP - General Internal Medicine 07/31/17
--- OUTSIDE RECORDS SUMMARY | 2024-04-02 10:24 | XMS_ITS | Encounter Summary ---
Author Organization [facility] Address [address] [place] [address] Care Team Providers Care Broach Setter Name Role Phone Kristin Bellamy MD Primary Care Provider [phone] Encounter Details Date Type Department Care Team (Late st Contact Info) Description 03/26/2024 Lab Requisition [facility] - Main Lab [address] [facility] [place] [address] Gilson Davidson MD [address] [facility] [address] [place], [address] Essential (primary) hypertension; Type 2 diabetes mellitus without complications (CMS/HCC) Social History Tobacco Use Types Packs/Day Years [...] Date/Time Associated Diagnosis Comments SEDIMENTATION RATE Routine 03/27/2024 7: 55 AM EST Essential (primary) hypertension Type 2 diabetes mellitus without complications (CMS/HCC) COMPLETE BLOOD COUNT Routine 03/27/2024 7:55 AM EST Essential (primary) hypertension Type 2 diabetes mellitus without complications (CMS/HCC) C-REACTIVE PROTEIN Routine 03/27/2024 7: 55 AM EST Essential (primary) hypertension Type 2 diabetes mellitus without complications (CMS/HCC) BASIC METABOLIC PANEL Routine 03/27/2024 7:55 AM EST Essential (primary) hypertension Type 2 diabetes mellitus without complications (CMS/HCC) documented in this encounter Results * (ABNORMAL) Sedimentation rate (03/27/2024 7:55 AM EST) Pathologist [facility] Sed Rate 123(H) 0 - 30 mm/hr LAB HEMETOLOGY METHOD 03/27/2024 11:45 AM EST [facility] Blood Venous blood specimen / Unknown Venipuncture / Unknown 03/27/2024 7:55 AM EST 03/27/2024 11:01 AM EST us Gilson Davidson MD LAB BLOOD ORDERABLES Final Resul t Performing Organization Address [facility]/ZIP Co de Phone Number [facility] [address] [place] [address], * (ABNORMAL) C-reactive protein (03/27/2024 7:55 AM EST) [facility] C-Reactive Protein 5.12(H) <=0.50 mg/dL LAB CHEMISTRY METHOD 03/27/2024 11:56 AM EST [facility] Blood Venous blood specimen / Unknown Venipuncture / Unknown 03/27/2024 7:55 AM EST 03/27/2024 11:01 AM EST Gilson Davidson MD LAB BLOOD ORDERABLES Final Resul t Performing Organization Address City/[facility]/ZIP Co de Phone Number [facility] [address] [place] [address], [place] [phone] * (ABNORMAL) Basic metabolic panel (03/27/2024 7:55 AM EST) [facility] Sodium 137 133 - 145 mmol/L LAB CHEMISTRY METHOD 03/27/2024 11:54 AM EST [facility] Potassium 4.5 3.5 - 5.5 mmol/L LAB CHEMISTRY METHOD 03/27/2024 11:54 AM [facility] Chloride 108 96 - 110 mmol/L LAB CHEMISTRY METHOD 03/27/2024 11:54 AM [facility] CO2 24 21 - 32 mmol/L LAB CHEMISTRY METHOD 03/27/2024 11:54 AM [facility] Anion Gap 5 3 - 11 LAB CHEMISTRY METHOD 03/27/2024 11:54 AM [facility] Glucose 86 70 - 100 mg/dL LAB CHEMISTRY METHOD 03/27/2024 11:54 AM [facility] BUN 24 5 - 25 mg/dL LAB CHEMISTRY METHOD 03/27/2024 11:54 AM [facility] Creatinine 1.21(H) 0.50 - 1.10 mg/dL LAB CHEMISTRY METHOD 03/27/2024 11:54 AM [facility] eGFR 51(L) >=60 mL/min/1. 73m2 LAB CHEMISTRY METHOD 03/27/2024 11:54 AM [facility] Comment:Calculation based on the??Chronic Kidney Disease Epidemiology Collaboration (CKD-EPI) equation refit??without adjustment for race. BUN/Creatinine Ratio 19.8 LAB CHEMISTRY METHOD 03/27/2024 11:54 AM [facility] Calcium 8.7 8.5 - 10.5 mg/dL LAB CHEMISTRY METHOD 03/27/2024 11:54 AM [facility] Blood Venous blood specimen / Unknown Venipuncture / Unknown 03/27/2024 7:55 AM EST 03/27/2024 11:01 AM EST us Gilson Davidson MD LAB BLOOD ORDERABLES Final Resul t [facility] [address] [place] [address], * (ABNORMAL) Complete blood count (03/27/2024 7:55 AM EST) [facility] WBC 7.6 4.8 - 10.8 K/mcL LAB HEMETOLOGY METHOD 03/27/2024 11:35 AM [facility] RBC 3.60(L) 3.80 - 4.80 M/mcL LAB HEMETOLOGY METHOD 03/27/2024 11:35 AM [facility] Hemoglobin 9.7(L) 11.5 - 16.0 g/dL LAB HEMETOLOGY METHOD 03/27/2024 11:35 AM [facility] Hematocrit 30.6(L) 35.0 - 47.0 % LAB HEMETOLOGY METHOD 03/27/2024 11:35 AM [facility] MCV 84.8 79.0 - 98.0 FL LAB HEMETOLOGY METHOD 03/27/2024 11:35 AM [facility] MCH 26.9(L) 27.0 - 32.0 pcg LAB HEMETOLOGY METHOD 03/27/2024 11:35 AM [facility] MCHC 31.7(L) 32.0 - 37.0 g/dL LAB HEMETOLOGY METHOD 03/27/2024 11:35 AM [facility] RDW 14.1 11.0 - 15.0 % LAB HEMETOLOGY METHOD 03/27/2024 11:35 AM [facility] Platelets 361 130 - 400 K/mcL LAB HEMETOLOGY METHOD 03/27/2024 11:35 AM [facility] MPV 10.3 7.0 - 11.0 FL LAB HEMETOLOGY METHOD 03/27/2024 11:35 AM [facility] NRBC 0.0 <1.0 % LAB HEMETOLOGY METHOD 03/27/2024 11:35 AM [facility] NRBC Absolute 0.00 <0.10 K/mcL LAB HEMETOLOGY METHOD 03/27/2024 11:35 AM EST [facility] Blood Venous blood specimen / Unknown Venipuncture / Unknown 03/27/2024 7:55 AM EST 03/27/2024 11:01 AM EST us Gilson Davidson MD LAB BLOOD ORDERABLES Final Resul t [facility] [address] [place] [address], documented in this encounter Visit Diagnoses Diagnosis Essential (primary) hypertension Unspecified essential hypertension Type 2 diabetes mellitus without complications (CMS/HCC) documented in this encounter Care Teams Broach Setter Relationship Specialty Start Date End Date Kristin Bellamy MD [address] [facility] [address] [place], [place] PCP - General Internal Medicine 11/29/19 documented as of this encounter
--- OUTSIDE RECORDS SUMMARY | 2024-04-02 10:24 | XMS_ITS | Encounter Summary ---
Author Organization [facility] Address [id number] [place] [id number] Care Team Providers Care Director Of Instrumental Music Name Role Phone Kristin Bellamy MD Primary Care Provider [phone] Encounter Details Date Type Department Care Team (Late st Contact Info) Description 03/12/[address] [facility] - Main Lab [address] [facility] [place] [address] Gilson Davidson MD [address] [facility] [address], [phone] Type 2 diabetes mellitus without complications (CMS/HCC); [...] Date/Time Associated Diagnosis Comments SEDIMENTATION RATE Routine 03/13/2024 7: 14 AM EST Type 2 diabetes mellitus without complications (CMS/HCC) Essential (primary) hypertension COMPLETE BLOOD COUNT Routine 03/13/2024 7:14 AM EST Type 2 diabetes mellitus without complications (CMS/HCC) Essential (primary) hypertension C-REACTIVE PROTEIN Routine 03/13/2024 7: 14 AM EST Type 2 diabetes mellitus without complications (CMS/HCC) Essential (primary) hypertension BASIC METABOLIC PANEL Routine 03/13/2024 7:14 AM EST Type 2 diabetes mellitus without complications (CMS/HCC) Essential (primary) hypertension documented in this encounter Results * (ABNORMAL) Sedimentation rate (03/13/2024 7:14 AM EST) Pathologist [facility] Sed Rate 76(H) 0 - 30 mm/hr LAB HEMETOLOGY METHOD 03/13/2024 1:03 PM EST [facility] Blood Venous blood specimen / Unknown Venipuncture / Unknown 03/13/2024 7:14 AM EST 03/13/2024 11:09 AM EST us Gilson Davidson MD LAB BLOOD ORDERABLES Final Resul t Performing Organization Address [facility]/ZIP Co de Phone Number [facility] [address] [place] [address], * (ABNORMAL) C-reactive protein (03/13/2024 7:14 AM EST) [facility] C-Reactive Protein 0.66(H) <=0.50 mg/dL LAB CHEMISTRY METHOD 03/13/2024 12:57 PM EST [facility] Blood Venous blood specimen / Unknown Venipuncture / Unknown 03/13/2024 7:14 AM EST 03/13/2024 11:09 AM EST Gilson Davidson MD LAB BLOOD ORDERABLES Final Resul t Performing Organization Address City/[facility]/ZIP Co de Phone Number [facility] [address] [place] [address], [place] [phone] * (ABNORMAL) Basic metabolic panel (03/13/2024 7:14 AM EST) [facility] Sodium 137 133 - 145 mmol/L LAB CHEMISTRY METHOD 03/13/2024 12:40 PM EST [facility] Potassium 5.2 3.5 - 5.5 mmol/L LAB CHEMISTRY METHOD 03/13/2024 12:40 PM [facility] Chloride 106 96 - 110 mmol/L LAB CHEMISTRY METHOD 03/13/2024 12:40 PM [facility] CO2 27 21 - 32 mmol/L LAB CHEMISTRY METHOD 03/13/2024 12:40 PM [facility] Anion Gap 4 3 - 11 LAB CHEMISTRY METHOD 03/13/2024 12:40 PM [facility] Glucose 83 70 - 100 mg/dL LAB CHEMISTRY METHOD 03/13/2024 12:40 PM [facility] BUN 28(H) 5 - 25 mg/dL LAB CHEMISTRY METHOD 03/13/2024 12:40 PM [facility] Creatinine 1.40(H) 0.50 - 1.10 mg/dL LAB CHEMISTRY METHOD 03/13/2024 12:40 PM [facility] eGFR 43(L) >=60 mL/min/1. 73m2 LAB CHEMISTRY METHOD 03/13/2024 12:40 PM [facility] Comment:Calculation based on the??Chronic Kidney Disease Epidemiology Collaboration (CKD-EPI) equation refit??without adjustment for race. BUN/Creatinine Ratio 20.0 LAB CHEMISTRY METHOD 03/13/2024 12:40 PM [facility] Calcium 9.2 8.5 - 10.5 mg/dL LAB CHEMISTRY METHOD 03/13/2024 12:40 PM [facility] Blood Venous blood specimen / Unknown Venipuncture / Unknown 03/13/2024 7:14 AM EST 03/13/2024 11:09 AM EST us Gilson Davidson MD LAB BLOOD ORDERABLES Final Resul t [facility] [address] [place] [address], * (ABNORMAL) Complete blood count (03/13/2024 7:14 AM EST) [facility] WBC 9.6 4.8 - 10.8 K/mcL LAB HEMETOLOGY METHOD 03/13/2024 12:54 PM [facility] RBC 4.40 3.80 - 4.80 M/mcL LAB HEMETOLOGY METHOD 03/13/2024 12:54 PM [facility] Hemoglobin 11.9 11.5 - 16.0 g/dL LAB HEMETOLOGY METHOD 03/13/2024 12:54 PM [facility] Hematocrit 37.9 35.0 - 47.0 % LAB HEMETOLOGY METHOD 03/13/2024 12:54 PM [facility] MCV 86.5 79.0 - 98.0 FL LAB HEMETOLOGY METHOD 03/13/2024 12:54 PM [facility] MCH 27.2 27.0 - 32.0 pcg LAB HEMETOLOGY METHOD 03/13/2024 12:54 PM [facility] MCHC 31.4(L) 32.0 - 37.0 g/dL LAB HEMETOLOGY METHOD 03/13/2024 12:54 PM [facility] RDW 14.2 11.0 - 15.0 % LAB HEMETOLOGY METHOD 03/13/2024 12:54 PM [facility] Platelets 456(H) 130 - 400 K/mcL LAB HEMETOLOGY METHOD 03/13/2024 12:54 PM [facility] MPV 10.3 7.0 - 11.0 FL LAB HEMETOLOGY METHOD 03/13/2024 12:54 PM [facility] NRBC 0.0 <1.0 % LAB HEMETOLOGY METHOD 03/13/2024 12:54 PM [facility] NRBC Absolute 0.00 <0.10 K/mcL LAB HEMETOLOGY METHOD 03/13/2024 12:54 PM EST [facility] Blood Venous blood specimen / Unknown Venipuncture / Unknown 03/13/2024 7:14 AM EST 03/13/2024 11:09 AM EST us Gilson Davidson MD LAB BLOOD ORDERABLES Final Resul t [facility] [address] [place] [address], documented in this encounter Visit Diagnoses Diagnosis Type 2 diabetes mellitus without complications (CMS/HCC) Essential (primary) hypertension Unspecified essential hypertension documented in this encounter Care Teams Director Of Instrumental Music Relationship Specialty Start Date End Date Kristin Blelamy MD [address] [facility] [address] [place], [place] PCP - General Internal Medicine 11/29/19 documented as of this encounter
--- OUTSIDE RECORDS SUMMARY | 2024-04-02 10:24 | XMS_ITS | Clinical Summary ---
Author Organization [address] Address [address] [place] [address] Phone Care Team Providers Care Manager Strategy Name Role Phone Kristin Bellamy MD Primary Care Provider [phone] Encounters Date Type Department Care Team Description 03/26/2024 Lab Requisition [facility] [address] [place] [phone] Gilson Davidson MD Essential (primary) hypertension; Type 2 diabetes mellitus without complications (CMS/HCC) 03/19/2024 Lab Requisition [facility] [address] [place] [phone] Gilson Davidson MD Type 2 diabetes mellitus without complications (CMS/HCC); Essential (primary) hypertension 03/12/2024 Lab Requisition [facility] [address] [place] [phone] Gilson Davidson MD Type 2 diabetes mellitus without complications (CMS/HCC); Essential (primary) hypertension 03/05/2024 Lab Requisition [facility] [address] [place] [phone] Gilson Davidson MD Type 2 diabetes mellitus without complications (CMS/HCC); Essential (primary) hypertension 02/27/2024 Lab Requisition [facility] [address] [place] [phone] Gilson Davidson MD Non-pressure chronic ulcer of unspecified part of left lower leg with unspecified severity (CMS/HCC); Small cell b-cell lymphoma, spleen (CMS/HCC); Other toxic encephalopathy; Type 2 diabetes mellitus without complications (CMS/HCC); Essential (primary) hypertension 02/20/2024 Lab Requisition [facility] [address] [place] [phone] Gilson Davidsno MD Hyperlipidemia, unspecified; Other specified diabetes mellitus with other specified complication (CMS/HCC); Other acute osteomyelitis, right ankle and foot (CMS/HCC); Type 2 diabetes mellitus without complications ([facility]/HCC); Essential (primary) hypertension 02/13/2024 Lab Requisition [facility] [address] [place] [phone] Gilson Davidson MD Type 2 diabetes mellitus without complications ([facility]/HCC); Essential (primary) hypertension 02/06/2024 Lab Requisition [facility] [address] [place] [phone] Gilson Davidson MD Type 2 diabetes mellitus without complications ([facility]/HCC); Essential (primary) hypertension 01/30/2024 Lab Requisition [facility] [address] [place] [phone] Gilson Davidson MD Type 2 diabetes mellitus without complications ([facility]/HCC); Essential (primary) hypertension 01/23/2024 Lab Requisition [facility] [address] [place] [phone] Gilson Davidson MD Type 2 diabetes mellitus without complications ([facility]/HCC); Essential (primary) hypertension 01/16/2024 Lab Requisition [facility] [address] [place] [phone] Gilson Davidson MD Type 2 diabetes mellitus without complications ([facility]/HCC); Essential (primary) hypertension 01/09/2024 Lab Requisition [facility] [address] [place] [phone] Gilson Davidson MD Type 2 diabetes mellitus without complications ([facility]/HCC); Essential (primary) hypertension 01/05/2024 Lab Requisition [facility] [address] [facility] [place] [phone] Gilson Davidson MD Type 2 diabetes mellitus without complications ([facility]); Essential (primary) hypertension from Last 3 Months Surgical History Surgery Date Site/Laterality Comments OTHER SURGICAL HISTORY 2016 PROCEDURE: [place] VITRECTOMY MCHNL PARS PLNA FOCAL ENDOLASER PC FOOT SURGERY 2016 PROCEDURE: HISTORICAL FOOT SURGERY CATARACT EXTRACTION 2015 Left PROCEDURE: HISTORICAL CATARACT REMOVAL Medical History Medical History Date Comments Anemia DX:Anemia Hyperlipidemia DX:Hyperlipidemi a Essential hypertension DX:Essent ial hypertension Neuropathy DX:Neuropathy Presence of other orthopedic joint implants DX:Presence of other orthope dic joint implants Retinopathy DX:Retinopathy Charcot foot due to diabetes mellitus ([facility]) DX:Charcot foot due to diabe roger mellitus ([facility]) Type 2 diabetes mellitus wit h eye manifestations ([facility]) 07/06/2020 DX:Type 2 diabetes mellitus with eye manifestations ([facility]) Diabetes mellitus type 2 wit h neurological manifestations ([facility]) 07/06/2020 DX:Diabetes antonio itus type 2 with neurological manifestations ([facility]) Diabetes mellitus with catar act ([facility]) 07/06/2020 DX:Diabetes mellitus with ca taract ([facility]); COMMENT: Left eye Asthma 07/06/2020 DX:Asthma DM (diabetes mellitus), type 2 with peripheral vascular complications ([facility]) 07/06/2020 DX:DM (diabetes mellitus), t ype 2 with peripheral vascular complications ([facility]) Gout 07/06/2020 DX:Gout Diabetic ulcer of right foot ([facility]) 07/06/2020 DX:Diabetic ulcer of right f oot ([facility]); COMMENT: Right plantar foot - [facility] History of cataract 07/06/2020 DX:History o f cataract; COMMENT: Left eye History of osteomyelitis 07/06/2020 DX:Hist ory of osteomyelitis; COMMENT: 09/2014 Right ankle and foot Family History Medical History Relation Name Comments Diabetes Father 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 Mother stroke Stroke Other grandmother Relation Name Status Comments Father Mother Other grandmother Social History Tobacco Use Types Packs/Day Years [...] on file Sexual Orientation Not on file Obstetrics History Plan of Treatment Health Maintenance Due Date Last Done Comments Breast Cancer Screening 1961 Diabetes: Annual Foot Exam 08/24/1971 Diabetes: Annual Retina Eye Exam 08/24/1971 DTaP,Tdap,and Td Vaccines (1 - Tdap) 1980 Pneumococcal Vaccine: 50+ Years (1 of 2 - PCV) 1980 Pneumococcal Vaccine: Pediatrics (0 to 5 Years) and At-Risk Patients (6 to 64 Years) (1 of 2 - PCV) 1980 Zoster Vaccines (1 of 2) 1980 Cervical Cancer Screening: Pap Smear 1982 COVID-19 Vaccine (3 - Moderna risk series) 04/16/2020 03/19/2020, 02/20/2020 RSV Immunization Patients 60+ Years Old (1 - Risk 60-74 years 1-dose series) 2021 Influenza Vaccine (#1) 2023 , 10/26/2018, 11/27/2017 Cholesterol Screening (Lipid Panel) 01/05/2024 Colorectal Cancer Screening: Colonoscopy 01/05/2024 Depression Screening 01/05/2024 Diabetes: Annual Urine Albumin-Creatinine Ratio (uACR) 01/05/2024 HIV Screening 01/05/2024 Hepatitis C Screening 01/05/2024 Social Influencers of Health Screening 01/05/2024 Diabetes: Blood Sugar Control Test (HGBA1C) 07/04/2024 01/05/2024 Diabetes: Annual GFR (Glomerular Filtration Rate) 03/27/2025 03/27/2024, 03/20/2024, 03/13/2024, Additional history exists 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/CHF/CAD Annual BMP Blood Test 03/27/2025 03/27/2024, 03/20/2024, 03/13/2024, Additional history exists HIB Vaccines Aged Out No longer eligi ble based on patient's age to complete this topic HPV Vaccines Aged Out No longer eligi ble based on patient's age to complete this topic Hepatitis A Vaccines Aged Out No long er eligible based on patient's age to complete this topic Hepatitis B Vaccines Aged Out No long er eligible based on patient's age to complete this topic IPV Vaccines Aged Out No longer eligi ble based on patient's age to complete this topic MMR Vaccines Aged Out No longer eligi ble based on patient's age to complete this topic Meningococcal ACWY Vaccine Aged Out N o longer eligible based on patient's age to complete this topic Meningococcal B Vacine Aged Out No lo nger eligible based on patient's age to complete this topic RSV Immunization Patients Under 20 months Aged Out No longer eligible based on patient's age to complete this topic Varicella Vaccines Aged Out No longer eligible based on patient's age to complete this topic Procedures Procedure Name Priority Date/Time Associated Diagnosis [...] Type 2 diabetes mellitus without complications (CMS/HCC) SEDIMENTATION RATE Routine 03/20/2024 6: 04 AM EST Type 2 diabetes mellitus without complications (CMS/HCC) Essential (primary) hypertension C-REACTIVE PROTEIN Routine 03/20/2024 6: 04 AM EST Type 2 diabetes mellitus without complications (CMS/HCC) Essential (primary) hypertension BASIC METABOLIC PANEL Routine 03/20/2024 6:04 AM EST Type 2 diabetes mellitus without complications (CMS/HCC) Essential (primary) hypertension COMPLETE BLOOD COUNT Routine 03/20/2024 6:04 AM EST Type 2 diabetes mellitus without complications (CMS/HCC) Essential (primary) hypertension SEDIMENTATION RATE Routine 03/13/2024 7: 14 AM [...] mellitus without complications (CMS/HCC) Essential (primary) hypertension SEDIMENTATION RATE Routine 03/06/2024 7: 07 AM EST Type 2 diabetes mellitus without complications (CMS/HCC) Essential (primary) hypertension C-REACTIVE PROTEIN Routine 03/06/2024 7: 07 AM EST Type 2 diabetes mellitus without complications (CMS/HCC) Essential (primary) hypertension BASIC METABOLIC PANEL Routine 03/06/2024 7:07 AM EST Type 2 diabetes mellitus without complications (CMS/HCC) Essential (primary) hypertension COMPLETE BLOOD COUNT Routine 03/06/2024 7:07 AM EST Type 2 diabetes mellitus without complications (CMS/HCC) Essential (primary) hypertension C-REACTIVE PROTEIN Routine 02/28/2024 6: 00 AM EST Non-pressure chronic ulcer of unspecified part of left lower leg with unspecified severity (CMS/HCC) Small cell b-cell lymphoma, spleen (CMS/HCC) Other toxic encephalopathy Type 2 diabetes mellitus without complications (CMS/HCC) Essential (primary) hypertension SEDIMENTATION RATE Routine 02/28/2024 6: 00 AM [...] mellitus without complications (CMS/HCC) Essential (primary) hypertension SEDIMENTATION RATE Routine 02/21/2024 7: 35 AM [...] mellitus without complications (CMS/HCC) Essential (primary) hypertension SEDIMENTATION RATE Routine 02/15/2024 6: 19 AM EST Type 2 diabetes mellitus without complications (CMS/HCC) Essential (primary) hypertension C-REACTIVE PROTEIN Routine 02/15/2024 6: 19 AM EST Type 2 diabetes mellitus without complications (CMS/HCC) Essential (primary) hypertension BASIC METABOLIC PANEL Routine 02/15/2024 6:19 AM EST Type 2 diabetes mellitus without complications (CMS/HCC) Essential (primary) hypertension COMPLETE BLOOD COUNT Routine 02/15/2024 6:19 AM EST Type 2 diabetes mellitus without complications (CMS/HCC) Essential (primary) hypertension SEDIMENTATION RATE Routine 02/08/2024 8: 40 AM EST Type 2 diabetes mellitus without complications (CMS/HCC) Essential (primary) hypertension C-REACTIVE PROTEIN Routine 02/08/2024 8: 40 AM EST Type 2 diabetes mellitus without complications (CMS/HCC) Essential (primary) hypertension BASIC METABOLIC PANEL Routine 02/08/2024 8:40 AM EST Type 2 diabetes mellitus without complications (CMS/HCC) Essential (primary) hypertension COMPLETE BLOOD COUNT Routine 02/08/2024 8:40 AM EST Type 2 diabetes mellitus without complications (CMS/HCC) Essential (primary) hypertension SEDIMENTATION RATE Routine 01/31/2024 6: 03 AM EST Type 2 diabetes mellitus without complications (CMS/HCC) Essential (primary) hypertension C-REACTIVE PROTEIN Routine 01/31/2024 6: 03 AM EST Type 2 diabetes mellitus without complications (CMS/HCC) Essential (primary) hypertension BASIC METABOLIC PANEL Routine 01/31/2024 6:03 AM EST Type 2 diabetes mellitus without complications (CMS/HCC) Essential (primary) hypertension COMPLETE BLOOD COUNT Routine 01/31/2024 6:03 AM EST Type 2 diabetes mellitus without complications (CMS/HCC) Essential (primary) hypertension C-REACTIVE PROTEIN Routine 01/24/2024 8: 13 AM EST Type 2 diabetes mellitus without complications (CMS/HCC) Essential (primary) hypertension SEDIMENTATION RATE Routine 01/24/2024 8: 13 AM EST Type 2 diabetes mellitus without complications (CMS/HCC) Essential (primary) hypertension BASIC METABOLIC PANEL Routine 01/24/2024 8:13 AM EST Type 2 diabetes mellitus without complications (CMS/HCC) Essential (primary) hypertension COMPLETE BLOOD COUNT Routine 01/24/2024 8:13 AM EST Type 2 diabetes mellitus without complications (CMS/HCC) Essential (primary) hypertension SEDIMENTATION RATE Routine 01/17/2024 6: 11 AM EST Type 2 diabetes mellitus without complications (CMS/HCC) Essential (primary) hypertension C-REACTIVE PROTEIN Routine 01/17/2024 6: 11 AM EST Type 2 diabetes mellitus without complications (CMS/HCC) Essential (primary) hypertension BASIC METABOLIC PANEL Routine 01/17/2024 6:11 AM EST Type 2 diabetes mellitus without complications (CMS/HCC) Essential (primary) hypertension COMPLETE BLOOD COUNT Routine 01/17/2024 6:11 AM EST Type 2 diabetes mellitus without complications (CMS/HCC) Essential (primary) hypertension SEDIMENTATION RATE Routine 01/10/2024 7: 05 AM EST Type 2 diabetes mellitus without complications (CMS/HCC) Essential (primary) hypertension C-REACTIVE PROTEIN Routine 01/10/2024 7: 05 AM EST Type 2 diabetes mellitus without complications (CMS/HCC) Essential (primary) hypertension BASIC METABOLIC PANEL Routine 01/10/2024 7:05 AM EST Type 2 diabetes mellitus without complications (CMS/HCC) Essential (primary) hypertension COMPLETE BLOOD COUNT Routine 01/10/2024 7:05 AM EST Type 2 diabetes mellitus without complications (CMS/HCC) Essential (primary) hypertension CBC WITH AUTO DIFFERENTIAL Routine 01/05/2024 5:02 AM EST Type 2 diabetes mellitus without complications (CMS/HCC) Essential (primary) hypertension HEMOGLOBIN A1C Routine 01/05/2024 5:02 AM EST Type 2 diabetes mellitus without complications (CMS/HCC) Essential (primary) hypertension COMPREHENSIVE METABOLIC PANEL Routine 01/05/2024 5:02 AM EST Type 2 diabetes mellitus without complications (CMS/HCC) Essential (primary) hypertension CBC AND DIFFERENTIAL Routine 01/05/2024 5:02 AM EST Type 2 diabetes mellitus without complications (CMS/HCC) Essential (primary) hypertension from Last 3 Months Results * (ABNORMAL) Sedimentation rate (03/27/2024 7:55 AM EST) Only the most recent of12 resultswithin the time period is included. Sed Rate 123(H) 0 - 30 mm/hr LAB HEMETOLOGY METHOD 03/27/2024 11:45 AM EST [facility] Blood Venous blood specimen / Unknown Venipuncture / Unknown 03/27/2024 7:55 AM EST 03/27/2024 11:01 AM EST us Gilson Davidson MD LAB BLOOD ORDERABLES Final Resul t [facility] [address] [place] [address], [place] [phone] * (ABNORMAL) Complete blood count (03/27/2024 7:55 AM EST) Only the most recent of12 resultswithin the time period is included. WBC 7.6 4.8 - 10.8 K/mcL LAB HEMETOLOGY METHOD 03/27/2024 11:35 AM EST [facility] RBC 3.60(L) 3.80 - 4.80 M/mcL LAB HEMETOLOGY METHOD 03/27/2024 11:35 AM EST [facility] Hemoglobin 9.7(L) 11.5 - 16.0 g/dL LAB HEMETOLOGY METHOD 03/27/2024 11:35 AM [facility] Hematocrit 30.6(L) 35.0 - 47.0 % LAB HEMETOLOGY METHOD 03/27/2024 11:35 AM [facility] MCV 84.8 79.0 - 98.0 FL LAB HEMETOLOGY METHOD 03/27/2024 11:35 AM [facility] MCH 26.9(L) 27.0 - 32.0 pcg LAB HEMETOLOGY METHOD 03/27/2024 11:35 AM [facility] MCHC 31.7(L) 32.0 - 37.0 g/dL LAB HEMETOLOGY METHOD 03/27/2024 11:35 AM [facility] RDW 14.1 11.0 - 15.0 % LAB HEMETOLOGY METHOD 03/27/2024 11:35 AM [facility] Platelets 361 130 - 400 K/mcL LAB HEMETOLOGY METHOD 03/27/2024 11:35 AM [facility] MPV 10.3 7.0 - 11.0 FL LAB HEMETOLOGY METHOD 03/27/2024 11:35 AM [facility] NRBC 0.0 <1.0 % LAB HEMETOLOGY METHOD 03/27/2024 11:35 AM [facility] NRBC Absolute 0.00 <0.10 K/mcL LAB HEMETOLOGY METHOD 03/27/2024 11:35 AM [facility] Blood Venous blood specimen / Unknown Venipuncture / Unknown 03/27/2024 7:55 AM EST 03/27/2024 11:01 AM EST us Gilson Davidson MD LAB BLOOD ORDERABLES Final Resul t [facility] [address] [place] [address], [place] [phone] * (ABNORMAL) C-reactive protein (03/27/2024 7:55 AM EST) Only the most recent of12 resultswithin the time period is included. [facility] C-Reactive Protein 5.12(H) <=0.50 mg/dL LAB CHEMISTRY METHOD 03/27/2024 11:56 AM [facility] Blood Venous blood specimen / Unknown Venipuncture / Unknown 03/27/2024 7:55 AM EST 03/27/2024 11:01 AM EST Gilson Davidson MD LAB BLOOD ORDERABLES Final Resul t [facility] [address] [place] [address], * (ABNORMAL) Basic metabolic panel (03/27/2024 7:55 AM EST) Only the most recent of12 resultswithin the time period is included. [facility] Sodium 137 133 - 145 mmol/L LAB CHEMISTRY METHOD 03/27/2024 11:54 AM [facility] Potassium 4.5 3.5 - 5.5 mmol/L LAB CHEMISTRY METHOD 03/27/2024 11:54 AM [facility] Chloride 108 96 - 110 mmol/L LAB CHEMISTRY METHOD 03/27/2024 11:54 AM [facility] CO2 24 21 - 32 mmol/L LAB CHEMISTRY METHOD 03/27/2024 11:54 AM [facility] Anion Gap 5 3 - 11 LAB CHEMISTRY METHOD 03/27/2024 11:54 AM [facility] Glucose 86 70 - 100 mg/dL LAB CHEMISTRY METHOD 03/27/2024 11:54 AM [facility] BUN 24 5 - 25 mg/dL LAB CHEMISTRY METHOD 03/27/2024 11:54 AM [facility] Creatinine 1.21(H) 0.50 - 1.10 mg/dL LAB CHEMISTRY METHOD 03/27/2024 11:54 AM [facility] eGFR 51(L) >=60 mL/min/1. 73m2 LAB CHEMISTRY METHOD 03/27/2024 11:54 AM [facility] Comment:Calculation based on the??Chronic Kidney Disease Epidemiology Collaboration (CKD-EPI) equation refit??without adjustment for race. BUN/Creatinine Ratio 19.8 LAB CHEMISTRY METHOD 03/27/2024 11:54 AM [facility] Calcium 8.7 8.5 - 10.5 mg/dL LAB CHEMISTRY METHOD 03/27/2024 11:54 AM [facility] Blood Venous blood specimen / Unknown Venipuncture / Unknown 03/27/2024 7:55 AM EST 03/27/2024 11:01 AM EST us Gilson Davidson MD LAB BLOOD ORDERABLES Final Resul t [facility] [address] [place] [address], * (ABNORMAL) CBC auto differential (01/05/2024 5:02 AM EST) WBC 9.0 4.8 - 10.8 K/mcL LAB HEMETOLOGY METHOD 01/05/2024 6:52 AM [facility] RBC 3.10(L) 3.80 - 4.80 M/mcL LAB HEMETOLOGY METHOD 01/05/2024 6:52 AM [facility] Hemoglobin 8.8(L) 11.5 - 16.0 g/dL LAB HEMETOLOGY METHOD 01/05/2024 6:52 AM [facility] Hematocrit 27.8(L) 35.0 - 47.0 % LAB HEMETOLOGY METHOD 01/05/2024 6:52 AM [facility] MCV 88.8 79.0 - 98.0 FL LAB HEMETOLOGY METHOD 01/05/2024 6:52 AM [facility] MCH 28.1 27.0 - 32.0 pcg LAB HEMETOLOGY METHOD 01/05/2024 6:52 AM [facility] MCHC 31.7(L) 32.0 - 37.0 g/dL LAB HEMETOLOGY METHOD 01/05/2024 6:52 AM [facility] RDW 13.0 11.0 - 15.0 % LAB HEMETOLOGY METHOD 01/05/2024 6:52 AM [facility] Platelets 370 130 - 400 K/mcL LAB HEMETOLOGY METHOD 01/05/2024 6:52 AM [facility] MPV 9.7 7.0 - 11.0 FL LAB HEMETOLOGY METHOD 01/05/2024 6:52 AM [facility] NRBC 0.0 <1.0 % LAB HEMETOLOGY METHOD 01/05/2024 6:52 AM [facility] NRBC Absolute 0.00 <0.10 K/mcL LAB HEMETOLOGY METHOD 01/05/2024 6:52 AM [facility] Neutrophils Relative 64.8 % LAB HEMETOLOGY METHOD 01/05/2024 6:52 AM [facility] Lymphocytes Relative 23.0 % LAB HEMETOLOGY METHOD 01/05/2024 6:52 AM [facility] Monocytes Relative 6.4 % LAB HEMETOLOGY METHOD 01/05/2024 6:52 AM [facility] Eosinophils Relative 3.4 % LAB HEMETOLOGY METHOD 01/05/2024 6:52 AM [facility] Basophils Relative 0.4 % LAB HEMETOLOGY METHOD 01/05/2024 6:52 AM EST [facility] Immature Granulocytes Relative 2.0 % LAB HEMETOLOGY METHOD 01/05/2024 6:52 AM EST [facility] Neutrophils Absolute 5.83 1.50 - 7.00 K/mcL LAB HEMETOLOGY METHOD 01/05/2024 6:52 AM [facility] Lymphocytes Absolute 2.07 1.00 - 5.00 K/mcL LAB HEMETOLOGY METHOD 01/05/2024 6:52 AM EST [facility] Monocytes Absolute 0.58 0.20 - 1.00 K/mcL LAB HEMETOLOGY METHOD 01/05/2024 6:52 AM [facility] Eosinophils Absolute 0.31 0.00 - 0.50 K/mcL LAB HEMETOLOGY METHOD 01/05/2024 6:52 AM EST [facility] Basophils Absolute 0.04 0.00 - 0.20 K/mcL LAB HEMETOLOGY METHOD 01/05/2024 6:52 AM [facility] Immature Granulocytes Absolute 0.18(H) 0.00 - 0.03 K/mcL LAB HEMETOLOGY METHOD 01/05/2024 6:52 AM [facility] Blood Venous blood specimen / Unknown Venipuncture / Unknown 01/05/2024 5:02 AM EST 01/05/2024 6:25 AM EST us Gilson Davidson MD LAB BLOOD ORDERABLES Final Resul t [facility] [address] [place] [address], * Hemoglobin A1c (01/05/2024 5:02 AM EST) Hemoglobin A1C 6.4 <6.5 % LAB CHEMISTRY METHOD 01/05/2024 2:01 PM EST [facility] Mean Bld Glu Estim. 137 mg/dL LAB CHEMISTRY METHOD 01/05/2024 2:01 PM [facility] Blood Venous blood specimen / Unknown Venipuncture / Unknown 01/05/2024 5:02 AM EST 01/05/2024 6:25 AM EST us Gilson Davidson MD LAB BLOOD ORDERABLES Final Resul t [facility] [address] [place] [address], * (ABNORMAL) Comprehensive metabolic panel (01/05/2024 5:02 AM EST) Sodium 137 133 - 145 mmol/L LAB CHEMISTRY METHOD 01/05/2024 7:13 AM [facility] Potassium 4.5 3.5 - 5.5 mmol/L LAB CHEMISTRY METHOD 01/05/2024 7:13 AM [facility] Chloride 107 96 - 110 mmol/L LAB CHEMISTRY METHOD 01/05/2024 7:13 AM [facility] CO2 27 21 - 32 mmol/L LAB CHEMISTRY METHOD 01/05/2024 7:13 AM [facility] Anion Gap 3 3 - 11 LAB CHEMISTRY METHOD 01/05/2024 7:13 AM [facility] Glucose 114(H) 70 - 100 mg/dL LAB CHEMISTRY METHOD 01/05/2024 7:13 AM [facility] BUN 18 5 - 25 mg/dL LAB CHEMISTRY METHOD 01/05/2024 7:13 AM [facility] Creatinine 1.25(H) 0.50 - 1.10 mg/dL LAB CHEMISTRY METHOD 01/05/2024 7:13 AM [facility] eGFR 49(L) >=60 mL/min/1. 73m2 LAB CHEMISTRY METHOD 01/05/2024 7:13 AM [facility] Comment:Calculation based on the??Chronic Kidney Disease Epidemiology Collaboration (CKD-EPI) equation refit??without adjustment for race. BUN/Creatinine Ratio 14.4 LAB CHEMISTRY METHOD 01/05/2024 7:13 AM [facility] Calcium 8.8 8.5 - 10.5 mg/dL LAB CHEMISTRY METHOD 01/05/2024 7:13 AM [facility] AST (SGOT) 21 10 - 42 unit/L LAB CHEMISTRY METHOD 01/05/2024 7:13 AM [facility] ALT (SGPT) 9(L) 10 - 60 unit/L LAB CHEMISTRY METHOD 01/05/2024 7:13 AM [facility] Alkaline Phosphatase 75 42 - 121 unit/L LAB CHEMISTRY METHOD 01/05/2024 7:13 AM [facility] Total Protein 6.9 6.0 - 8.0 g/dL LAB CHEMISTRY METHOD 01/05/2024 7:13 AM [facility] Albumin 2.6(L) 3.2 - 5.0 g/dL LAB CHEMISTRY METHOD 01/05/2024 7:13 AM [facility] Total Bilirubin 0.2 0.0 - 1.4 mg/dL LAB CHEMISTRY METHOD 01/05/2024 7:13 AM [facility] Blood Venous blood specimen / Unknown Venipuncture / Unknown 01/05/2024 5:02 AM EST 01/05/2024 6:25 AM EST us Gilson Davidson MD LAB BLOOD ORDERABLES Final Resul t [facility] [address] [place] [address], from Last 3 Months Insurance [facility] Advance Directives Documents on File Type Date Recorded 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
--- OUTSIDE RECORDS SUMMARY | 2024-04-02 10:24 | XMS_ITS | Encounter Summary ---
Author Organization [facility] Address [id number] [place] [id number] Care Team Providers Care Flight Crew Scheduler Name Role Phone Kristin Bellamy MD Primary Care Provider [phone] Encounter Details Date Type Department Care Team (Late st Contact Info) Description 03/19/2024 Lab Requisition [facility] - Main Lab [address] [facility] [place] [address] Gilson Davisdon MD [address] [facility] [address] [place], [phone] Type 2 diabetes mellitus without complications [...] Date/Time Associated Diagnosis Comments SEDIMENTATION RATE Routine 03/20/2024 6: 04 AM [...] this encounter Results * (ABNORMAL) Sedimentation rate (03/20/2024 6:04 AM EST) Pathologist [facility] Sed Rate 53(H) 0 - 30 mm/hr LAB HEMETOLOGY METHOD 03/20/2024 11:21 AM EST [facility] Blood Venous blood specimen / Unknown Venipuncture / Unknown 03/20/2024 6:04 AM EST 03/20/2024 10:37 AM EST Gilson Davidson MD LAB BLOOD ORDERABLES Final Resul t Performing Organization Address [facility]/ZIP Co de Phone Number [facility] [address] [place] [address], * (ABNORMAL) C-reactive protein (03/20/2024 6:04 AM EST) [facility] C-Reactive Protein 1.78(H) <=0.50 mg/dL LAB CHEMISTRY METHOD 03/20/2024 12:22 PM EST [facility] Blood Venous blood specimen / Unknown Venipuncture / Unknown 03/20/2024 6:04 AM EST 03/20/2024 10:37 AM EST Gilson Davidson MD LAB BLOOD ORDERABLES Final Resul t Performing Organization Address City/[facility]/ZIP Co de Phone Number [facility] [address] [place] [address], [place] [phone] * (ABNORMAL) Basic metabolic panel (03/20/2024 6:04 AM EST) [facility] Sodium 137 133 - 145 mmol/L LAB CHEMISTRY METHOD 03/20/2024 12:22 PM EST [facility] Potassium 4.8 3.5 - 5.5 mmol/L LAB CHEMISTRY METHOD 03/20/2024 12:22 PM [facility] Comment:Hemolysis present Chloride 105 96 - 110 mmol/L LAB CHEMISTRY METHOD 03/20/2024 12:22 PM [facility] CO2 26 21 - 32 mmol/L LAB CHEMISTRY METHOD 03/20/2024 12:22 PM [facility] Anion Gap 6 3 - 11 LAB CHEMISTRY METHOD 03/20/2024 12:22 PM [facility] Glucose 104(H) 70 - 100 mg/dL LAB CHEMISTRY METHOD 03/20/2024 12:22 PM [facility] BUN 27(H) 5 - 25 mg/dL LAB CHEMISTRY METHOD 03/20/2024 12:22 PM [facility] Creatinine 1.22(H) 0.50 - 1.10 mg/dL LAB CHEMISTRY METHOD 03/20/2024 12:22 PM [facility] eGFR 50(L) >=60 mL/min/1. 73m2 LAB CHEMISTRY METHOD 03/20/2024 12:22 PM [facility] Comment:Calculation based on the??Chronic Kidney Disease Epidemiology Collaboration (CKD-EPI) equation refit??without adjustment for race. BUN/Creatinine Ratio 22.1 LAB CHEMISTRY METHOD 03/20/2024 12:22 PM [facility] Calcium 9.5 8.5 - 10.5 mg/dL LAB CHEMISTRY METHOD 03/20/2024 12:22 PM [facility] Blood Venous blood specimen / Unknown Venipuncture / Unknown 03/20/2024 6:04 AM EST 03/20/2024 10:37 AM EST us Gilson Davidson MD LAB BLOOD ORDERABLES Final Resul t [facility] [address] [place] [address], * (ABNORMAL) Complete blood count (03/20/2024 6:04 AM EST) [facility] Signature WBC 9.3 4.8 - 10.8 K/mcL LAB HEMETOLOGY METHOD 03/20/2024 11:05 AM [facility] RBC 4.50 3.80 - 4.80 M/mcL LAB HEMETOLOGY METHOD 03/20/2024 11:05 AM [facility] Hemoglobin 12.1 11.5 - 16.0 g/dL LAB HEMETOLOGY METHOD 03/20/2024 11:05 AM [facility] Hematocrit 38.6 35.0 - 47.0 % LAB HEMETOLOGY METHOD 03/20/2024 11:05 AM [facility] MCV 86.5 79.0 - 98.0 FL LAB HEMETOLOGY METHOD 03/20/2024 11:05 AM [facility] MCH 27.1 27.0 - 32.0 pcg LAB HEMETOLOGY METHOD 03/20/2024 11:05 AM [facility] MCHC 31.3(L) 32.0 - 37.0 g/dL LAB HEMETOLOGY METHOD 03/20/2024 11:05 AM [facility] RDW 13.9 11.0 - 15.0 % LAB HEMETOLOGY METHOD 03/20/2024 11:05 AM [facility] Platelets 453(H) 130 - 400 K/mcL LAB HEMETOLOGY METHOD 03/20/2024 11:05 AM [facility] MPV 10.4 7.0 - 11.0 FL LAB HEMETOLOGY METHOD 03/20/2024 11:05 AM [facility] NRBC 0.0 <1.0 % LAB HEMETOLOGY METHOD 03/20/2024 11:05 AM [facility] NRBC Absolute 0.00 <0.10 K/mcL LAB HEMETOLOGY METHOD 03/20/2024 11:05 AM EST [facility] Blood Venous blood specimen / Unknown Venipuncture / Unknown 03/20/2024 6:04 AM EST 03/20/2024 10:37 AM EST us Gilson Davidson MD LAB BLOOD ORDERABLES Final Resul t [facility] [address] [place] [address], documented in this encounter Visit Diagnoses Diagnosis Type 2 diabetes mellitus without complications (CMS/HCC) Essential (primary) hypertension Unspecified essential hypertension documented in this encounter Care Teams Flight Crew Scheduler Relationship Specialty Start Date End Date Kristin Bellamy MD [address] [facility] [address] [place], [place] PCP - General Internal Medicine 11/29/19 documented as of this encounter
--- OUTSIDE RECORDS SUMMARY | 2024-04-02 10:25 | XMS_ITS | Encounter Summary ---
Author Organization [facility] Address [address] [place] [phone] Care Team Providers Care Pit Supervisor Name Role Phone Kristin Bellamy MD Primary Care Provider [phone] Encounter Details Date Type Department Care Team (Late st Contact Info) Description 01/30/2024 Lab Requisition [facility] - Main Lab [address] [facility] [place] [address] Gilson Davidson MD [address] [facility] [address] [place], [phone] Type 2 diabetes mellitus without complications [...] Date/Time Associated Diagnosis Comments SEDIMENTATION RATE Routine 01/31/2024 6: 03 AM [...] this encounter Results * (ABNORMAL) Sedimentation rate (01/31/2024 6:03 AM EST) Pathologist [facility] Sed Rate 76(H) 0 - 30 mm/hr LAB HEMETOLOGY METHOD 01/31/2024 11:00 AM EST [facility] Blood Venous blood specimen / Unknown Venipuncture / Unknown 01/31/2024 6:03 AM EST 01/31/2024 10:15 AM EST us Gilson Davidson MD LAB BLOOD ORDERABLES Final Resul t Performing Organization Address [facility]/ZIP Co de Phone Number [facility] [address] [place] [address], * C-reactive protein (01/31/2024 6:03 AM EST) [facility] C-Reactive Protein 0.44 <=0.50 mg/dL LAB CHEMISTRY METHOD 01/31/2024 11:40 AM EST [facility] Blood Venous blood specimen / Unknown Venipuncture / Unknown 01/31/2024 6:03 AM EST 01/31/2024 10:17 AM EST us Gilson Davidson MD LAB BLOOD ORDERABLES Final Resul t Performing Organization Address City/[facility]/ZIP Co de Phone Number [facility] [address] [place] [address], [place] [phone] * (ABNORMAL) Basic metabolic panel (01/31/2024 6:03 AM EST) Pathologist [facility] Sodium 143 133 - 145 mmol/L LAB CHEMISTRY METHOD 01/31/2024 11:35 AM EST [facility] Potassium 4.0 3.5 - 5.5 mmol/L LAB CHEMISTRY METHOD 01/31/2024 11:35 AM [facility] Chloride 107 96 - 110 mmol/L LAB CHEMISTRY METHOD 01/31/2024 11:35 AM [facility] CO2 29 21 - 32 mmol/L LAB CHEMISTRY METHOD 01/31/2024 11:35 AM [facility] Anion Gap 7 3 - 11 LAB CHEMISTRY METHOD 01/31/2024 11:35 AM [facility] Glucose 116(H) 70 - 100 mg/dL LAB CHEMISTRY METHOD 01/31/2024 11:35 AM [facility] BUN 18 5 - 25 mg/dL LAB CHEMISTRY METHOD 01/31/2024 11:35 AM [facility] Creatinine 1.13(H) 0.50 - 1.10 mg/dL LAB CHEMISTRY METHOD 01/31/2024 11:35 AM [facility] eGFR 55(L) >=60 mL/min/1. 73m2 LAB CHEMISTRY METHOD 01/31/2024 11:35 AM [facility] Comment:Calculation based on the??Chronic Kidney Disease Epidemiology Collaboration (CKD-EPI) equation refit??without adjustment for race. BUN/Creatinine Ratio 15.9 LAB CHEMISTRY METHOD 01/31/2024 11:35 AM [facility] Calcium 9.2 8.5 - 10.5 mg/dL LAB CHEMISTRY METHOD 01/31/2024 11:35 AM [facility] Blood Venous blood specimen / Unknown Venipuncture / Unknown 01/31/2024 6:03 AM EST 01/31/2024 10:17 AM EST us Gilson Davidson MD LAB BLOOD ORDERABLES Final Resul t [facility] [address] [place] [address], * (ABNORMAL) Complete blood count (01/31/2024 6:03 AM EST) [facility] WBC 5.8 4.8 - 10.8 K/mcL LAB HEMETOLOGY METHOD 01/31/2024 10:45 AM [facility] RBC 3.80 3.80 - 4.80 M/mcL LAB HEMETOLOGY METHOD 01/31/2024 10:45 AM [facility] Hemoglobin 10.5(L) 11.5 - 16.0 g/dL LAB HEMETOLOGY METHOD 01/31/2024 10:45 AM [facility] Hematocrit 33.7(L) 35.0 - 47.0 % LAB HEMETOLOGY METHOD 01/31/2024 10:45 AM [facility] MCV 88.7 79.0 - 98.0 FL LAB HEMETOLOGY METHOD 01/31/2024 10:45 AM [facility] MCH 27.6 27.0 - 32.0 pcg LAB HEMETOLOGY METHOD 01/31/2024 10:45 AM [facility] MCHC 31.2(L) 32.0 - 37.0 g/dL LAB HEMETOLOGY METHOD 01/31/2024 10:45 AM [facility] RDW 13.4 11.0 - 15.0 % LAB HEMETOLOGY METHOD 01/31/2024 10:45 AM [facility] Platelets 278 130 - 400 K/mcL LAB HEMETOLOGY METHOD 01/31/2024 10:45 AM [facility] MPV 10.6 7.0 - 11.0 FL LAB HEMETOLOGY METHOD 01/31/2024 10:45 AM [facility] NRBC 0.0 <1.0 % LAB HEMETOLOGY METHOD 01/31/2024 10:45 AM [facility] NRBC Absolute 0.00 <0.10 K/mcL LAB HEMETOLOGY METHOD 01/31/2024 10:45 AM EST [facility] Blood Venous blood specimen / Unknown Venipuncture / Unknown 01/31/2024 6:03 AM EST 01/31/2024 10:15 AM EST us Gilson Davidson MD LAB BLOOD ORDERABLES Final Resul t [facility] [address] [place] [address], documented in this encounter Visit Diagnoses Diagnosis Type 2 diabetes mellitus without complications (CMS/HCC) Essential (primary) hypertension Unspecified essential hypertension documented in this encounter Care Teams Pit Supervisor Relationship Specialty Start Date End Date Kristin Bellamy MD [address] [facility] [address] [place], [place] PCP - General Internal Medicine 11/29/19 documented as of this encounter
--- OUTSIDE RECORDS SUMMARY | 2024-04-02 10:25 | XMS_ITS | Encounter Summary ---
Author Organization [facility] Address [address] [place] [id number] Care Team Providers Care Customer Service Driver Name Role Phone Kristin Bellamy MD Primary Care Provider [phone] Encounter Details Date Type Department Care Team (Late st Contact Info) Description 02/13/2024 Lab Requisition [facility] - Main Lab [address] [facility] [place] [address] Gilson Davidson MD [address] [facility] [address] [place], [address] Type 2 diabetes mellitus without complications [...] Date/Time Associated Diagnosis Comments SEDIMENTATION RATE Routine 02/15/2024 6: 19 AM [...] this encounter Results * (ABNORMAL) Sedimentation rate (02/15/2024 6:19 AM EST) Pathologist [facility] Sed Rate 67(H) 0 - 30 mm/hr LAB HEMETOLOGY METHOD 02/15/2024 10:39 AM EST [facility] Blood Venous blood specimen / Unknown Venipuncture / Unknown 02/15/2024 6:19 AM EST 02/15/2024 9:41 AM EST us Gilson Davidson MD LAB BLOOD ORDERABLES Final Resul t Performing Organization Address [facility]/ZIP Co de Phone Number [facility] [address] [place] [address], * C-reactive protein (02/15/2024 6:19 AM EST) [facility] C-Reactive Protein <0.29 <=0.50 mg/dL LAB CHEMISTRY METHOD 02/15/2024 11:53 AM EST [facility] Blood Venous blood specimen / Unknown Venipuncture / Unknown 02/15/2024 6:19 AM EST 02/15/2024 9:40 AM EST Gilson Davidson MD LAB BLOOD ORDERABLES Final Resul t Performing Organization Address City/[facility]/ZIP Co de Phone Number [facility] [address] [place] [address], * (ABNORMAL) Basic metabolic panel (02/15/2024 6:19 AM EST) Pathologist [facility] Sodium 139 133 - 145 mmol/L LAB CHEMISTRY METHOD 02/15/2024 11:53 AM EST [facility] Potassium 4.5 3.5 - 5.5 mmol/L LAB CHEMISTRY METHOD 02/15/2024 11:53 AM [facility] Chloride 109 96 - 110 mmol/L LAB CHEMISTRY METHOD 02/15/2024 11:53 AM [facility] CO2 28 21 - 32 mmol/L LAB CHEMISTRY METHOD 02/15/2024 11:53 AM [facility] Anion Gap 2(L) 3 - 11 LAB CHEMISTRY METHOD 02/15/2024 11:53 AM [facility] Glucose 192(H) 70 - 100 mg/dL LAB CHEMISTRY METHOD 02/15/2024 11:53 AM [facility] BUN 24 5 - 25 mg/dL LAB CHEMISTRY METHOD 02/15/2024 11:53 AM [facility] Creatinine 1.17(H) 0.50 - 1.10 mg/dL LAB CHEMISTRY METHOD 02/15/2024 11:53 AM [facility] eGFR 53(L) >=60 mL/min/1. 73m2 LAB CHEMISTRY METHOD 02/15/2024 11:53 AM [facility] Comment:Calculation based on the??Chronic Kidney Disease Epidemiology Collaboration (CKD-EPI) equation refit??without adjustment for race. BUN/Creatinine Ratio 20.5 LAB CHEMISTRY METHOD 02/15/2024 11:53 AM [facility] Calcium 8.8 8.5 - 10.5 mg/dL LAB CHEMISTRY METHOD 02/15/2024 11:53 AM [facility] Blood Venous blood specimen / Unknown Venipuncture / Unknown 02/15/2024 6:19 AM EST 02/15/2024 9:40 AM EST us Gilson Davidson MD LAB BLOOD ORDERABLES Final Resul t [facility] [address] [place] [address], * (ABNORMAL) Complete blood count (02/15/2024 6:19 AM EST) [facility] Signature WBC 6.7 4.8 - 10.8 K/mcL LAB HEMETOLOGY METHOD 02/15/2024 10:56 AM [facility] RBC 3.80 3.80 - 4.80 M/mcL LAB HEMETOLOGY METHOD 02/15/2024 10:56 AM [facility] Hemoglobin 10.6(L) 11.5 - 16.0 g/dL LAB HEMETOLOGY METHOD 02/15/2024 10:56 AM [facility] Hematocrit 34.4(L) 35.0 - 47.0 % LAB HEMETOLOGY METHOD 02/15/2024 10:56 AM [facility] MCV 89.8 79.0 - 98.0 FL LAB HEMETOLOGY METHOD 02/15/2024 10:56 AM [facility] MCH 27.7 27.0 - 32.0 pcg LAB HEMETOLOGY METHOD 02/15/2024 10:56 AM [facility] MCHC 30.8(L) 32.0 - 37.0 g/dL LAB HEMETOLOGY METHOD 02/15/2024 10:56 AM [facility] RDW 14.1 11.0 - 15.0 % LAB HEMETOLOGY METHOD 02/15/2024 10:56 AM [facility] Platelets 334 130 - 400 K/mcL LAB HEMETOLOGY METHOD 02/15/2024 10:56 AM [facility] MPV 10.7 7.0 - 11.0 FL LAB HEMETOLOGY METHOD 02/15/2024 10:56 AM [facility] NRBC 0.0 <1.0 % LAB HEMETOLOGY METHOD 02/15/2024 10:56 AM [facility] NRBC Absolute 0.00 <0.10 K/mcL LAB HEMETOLOGY METHOD 02/15/2024 10:56 AM EST [facility] Blood Venous blood specimen / Unknown Venipuncture / Unknown 02/15/2024 6:19 AM EST 02/15/2024 9:41 AM EST us Gilson Davidson MD LAB BLOOD ORDERABLES Final Resul t [facility] [address] [place] [address], documented in this encounter Visit Diagnoses Diagnosis Type 2 diabetes mellitus without complications (CMS/HCC) Essential (primary) hypertension Unspecified essential hypertension documented in this encounter Care Teams Customer Service Driver Relationship Specialty Start Date End Date Kristin Bellamy MD [address] [facility] [address] [place], [place] PCP - General Internal Medicine 11/29/19 documented as of this encounter
--- OUTSIDE RECORDS SUMMARY | 2024-04-02 10:25 | XMS_ITS | Encounter Summary ---
Author Organization [facility] Address [address] [place] [phone] Care Team Providers Care Sales Project Coordinator Name Role Phone Kristin Bellamy MD Primary Care Provider [phone] Encounter Details Date Type Department Care Team (Late st Contact Info) Description 01/05/2024 Lab Requisition [facility] - Main Lab [address] [facility] [place] [address] Gilson Davidson MD 38 [facility] [address] [place], [address] Type 2 diabetes mellitus without complications [...] Procedure Name Priority Date/Time Associated Diagnosis Comments CBC WITH AUTO DIFFERENTIAL Routine 01/05/2024 5:02 [...] documented in this encounter Results * (ABNORMAL) CBC auto differential (01/05/2024 5:02 AM EST) [facility] WBC 9.0 4.8 - 10.8 K/mcL LAB HEMETOLOGY METHOD 01/05/2024 6:52 AM [facility] RBC 3.10(L) 3.80 - 4.80 M/mcL LAB HEMETOLOGY METHOD 01/05/2024 6:52 AM [facility] Hemoglobin 8.8(L) 11.5 - 16.0 g/dL LAB HEMETOLOGY METHOD 01/05/2024 6:52 AM [facility] Hematocrit 27.8(L) 35.0 - 47.0 % LAB HEMETOLOGY METHOD 01/05/2024 6:52 AM [facility] MCV 88.8 79.0 - 98.0 FL LAB HEMETOLOGY METHOD 01/05/2024 6:52 AM [facility] MCH 28.1 27.0 - 32.0 pcg LAB HEMETOLOGY METHOD 01/05/2024 6:52 AM [facility] MCHC 31.7(L) 32.0 - 37.0 g/dL LAB HEMETOLOGY METHOD 01/05/2024 6:52 AM [facility] RDW 13.0 11.0 - 15.0 % LAB HEMETOLOGY METHOD 01/05/2024 6:52 AM [facility] Platelets 370 130 - 400 K/mcL LAB HEMETOLOGY METHOD 01/05/2024 6:52 AM [facility] MPV 9.7 7.0 - 11.0 FL LAB HEMETOLOGY METHOD 01/05/2024 6:52 AM [facility] NRBC 0.0 <1.0 % LAB HEMETOLOGY METHOD 01/05/2024 6:52 AM [facility] NRBC Absolute 0.00 <0.10 K/mcL LAB HEMETOLOGY METHOD 01/05/2024 6:52 AM [facility] Neutrophils Relative 64.8 % LAB HEMETOLOGY METHOD 01/05/2024 6:52 AM [facility] Lymphocytes Relative 23.0 % LAB HEMETOLOGY METHOD 01/05/2024 6:52 AM [facility] Monocytes Relative 6.4 % LAB HEMETOLOGY METHOD 01/05/2024 6:52 AM [facility] Eosinophils Relative 3.4 % LAB HEMETOLOGY METHOD 01/05/2024 6:52 AM [facility] Basophils Relative 0.4 % LAB HEMETOLOGY METHOD 01/05/2024 6:52 AM [facility] Immature Granulocytes Relative 2.0 % LAB HEMETOLOGY METHOD 01/05/2024 6:52 AM [facility] Neutrophils Absolute 5.83 1.50 - 7.00 K/mcL LAB HEMETOLOGY METHOD 01/05/2024 6:52 AM [facility] Lymphocytes Absolute 2.07 1.00 - 5.00 K/mcL LAB HEMETOLOGY METHOD 01/05/2024 6:52 AM [facility] Monocytes Absolute 0.58 0.20 - 1.00 K/mcL LAB HEMETOLOGY METHOD 01/05/2024 6:52 AM [facility] Eosinophils Absolute 0.31 0.00 - 0.50 K/mcL LAB HEMETOLOGY METHOD 01/05/2024 6:52 AM [facility] Basophils Absolute 0.04 0.00 - 0.20 K/mcL LAB HEMETOLOGY METHOD 01/05/2024 6:52 AM [facility] Immature Granulocytes Absolute 0.18(H) 0.00 - 0.03 K/mcL LAB HEMETOLOGY METHOD 01/05/2024 6:[address] [facility] Blood Venous blood specimen / Unknown Venipuncture / Unknown 01/05/2024 5:02 AM EST 01/05/2024 6:25 AM EST us Gilson Davidson MD LAB BLOOD ORDERABLES Final Resul t Performing Organization Address [facility] Co de Phone Number [facility] [address] [place] [address], [place] [phone] * Hemoglobin A1c (01/05/2024 5:02 AM EST) Hemoglobin A1C 6.4 <6.5 % LAB CHEMISTRY METHOD 01/05/2024 2:01 PM [facility] Mean Bld Glu Estim. 137 mg/dL LAB CHEMISTRY METHOD 01/05/2024 2:01 PM [facility] Blood Venous blood specimen / Unknown Venipuncture / Unknown 01/05/2024 5:02 AM EST 01/05/2024 6:25 AM EST us Gilson Davidson MD LAB BLOOD ORDERABLES Final Resul t Performing Organization Address [facility]/ZIP Co de Phone Number [facility] [address] [place] [address], [place] [phone] * (ABNORMAL) Comprehensive metabolic panel (01/05/2024 5:02 AM EST) Sodium 137 133 - 145 mmol/L LAB CHEMISTRY METHOD 01/05/2024 7:13 AM [facility] Potassium 4.5 3.5 - 5.5 mmol/L LAB CHEMISTRY METHOD 01/05/2024 7:13 AM [facility] Chloride 107 96 - 110 mmol/L LAB CHEMISTRY METHOD 01/05/2024 7:13 AM [facility] CO2 27 21 - 32 mmol/L LAB CHEMISTRY METHOD 01/05/2024 7:13 AM [facility] Anion Gap 3 3 - 11 LAB CHEMISTRY METHOD 01/05/2024 7:13 AM [facility] Glucose 114(H) 70 - 100 mg/dL LAB CHEMISTRY METHOD 01/05/2024 7:13 AM [facility] BUN 18 5 - 25 mg/dL LAB CHEMISTRY METHOD 01/05/2024 7:13 AM [facility] Creatinine 1.25(H) 0.50 - 1.10 mg/dL LAB CHEMISTRY METHOD 01/05/2024 7:13 AM [facility] eGFR 49(L) >=60 mL/min/1. 73m2 LAB CHEMISTRY METHOD 01/05/2024 7:13 AM [facility] Comment:Calculation based on the??Chronic Kidney Disease Epidemiology Collaboration (CKD-EPI) equation refit??without adjustment for race. BUN/Creatinine Ratio 14.4 LAB CHEMISTRY METHOD 01/05/2024 7:13 AM [facility] Calcium 8.8 8.5 - 10.5 mg/dL LAB CHEMISTRY METHOD 01/05/2024 7:13 AM [facility] AST (SGOT) 21 10 - 42 unit/L LAB CHEMISTRY METHOD 01/05/2024 7:13 AM [facility] ALT (SGPT) 9(L) 10 - 60 unit/L LAB CHEMISTRY METHOD 01/05/2024 7:13 AM [facility] Alkaline Phosphatase 75 42 - 121 unit/L LAB CHEMISTRY METHOD 01/05/2024 7:13 AM [facility] Total Protein 6.9 6.0 - 8.0 g/dL LAB CHEMISTRY METHOD 01/05/2024 7:13 AM [facility] Albumin 2.6(L) 3.2 - 5.0 g/dL LAB CHEMISTRY METHOD 01/05/2024 7:[address] [facility] Total Bilirubin 0.2 0.0 - 1.4 mg/dL LAB CHEMISTRY METHOD 01/05/2024 7:[address] [facility] Blood Venous blood specimen / Unknown Venipuncture / Unknown 01/05/2024 5:02 AM EST 01/05/2024 6:25 AM EST us Gilson Davidson MD LAB BLOOD ORDERABLES Final Resul t [facility] [address] [place] [address], documented in this encounter Visit Diagnoses Diagnosis Type 2 diabetes mellitus without complications (CMS/HCC) Essential (primary) hypertension Unspecified essential hypertension documented in this encounter Care Teams Sales Project Coordinator Relationship Specialty Start Date End Date Kristin Bellamy MD [facility] [address] PCP - General Internal Medicine 11/29/19 documented as of this encounter
--- OUTSIDE RECORDS SUMMARY | 2024-04-02 10:25 | XMS_ITS | Continuity of Care Document ---
Author Organization [facility], [facility] Address [address] [place] [address] Care Team Providers Care Machine Spring Former Name Role Phone [facility] OTHER [place] ROBISON Primary Care Provider [phone] Assessment No assessment recorded. Plan of Treatment [...] Address Organization Details Recorded Time Vasovagal syncope 853925427 Active 2019 ANN PALENCIA [address] , [address], [place], [address], [facility] 0 10:46:40 Acute insomnia 422081270 Active 2019 ANN PALENCIA [address], [address], [place], [address], [facility] 0 12:20:58 Seasonal allergy 631328564 Active 2023 Coco Patiño NP [address], [address], [place], [address], [facility] 4 08:54:18 Constipation 08166122 Active 2023 Coco Patiño NP [address], [address], [place], [address], [facility] 4 08:55:05 Depressive disorder 76408675 Active 2023 Coco Patiño NP [address] [facility], [address], [place], [address], [facility] 4 09:18:55 Fracture of neck of femur 9565336 Active 2023 Coco Patiño NP [address] [facility], [address], [place], [address], [facility] 4 09:23:30 Non-toxic multinodular goiter 10672791 Active 2023 Kellie Padilla MD [address] [facility], [address], [place], [address], [facility] 4 15:57:10 Diabetes mellitus 28885428 Active 2017 ANN PALENCIA [address] [facility], [address], [place], [address], [facility] 8 14:10:02 Neuropathy due to diabetes mellitus 812008183 Active 2017 ANN PALENCIA [address] [facility], [address], [place], [address], [facility] 8 14:10:12 Asthma 571312607 Active 2017 ANN PALENCIA [address] [facility], [address], [place], [address], [facility] 8 14:10:19 Essential hypertension 41958863 Active 2017 ANN PALENCIA [address] [facility], [address], [place], [address], [facility] 8 14:10:38 Diabetic foot ulcer 119976607 Active 2017 ANN PALENCIA [address] [facility], [address], [place], [address], [facility] 8 14:11:07 Charcot's joint of foot 702193157 Active 2017 ANN PALENCIA [address] [facility], [address], [place], [address], [facility] 8 14:11:40 Cellulitis 109810841 Active 2017 ANN PALENCIA [address] [facility], [address], [place], [address], [facility] 8 14:11:51 Chronic kidney disease stage 3 204637467 Active 2017 ANN PALENCIA [address] , [address], [place], [address], [facility] 8 14:12:00 Osteomyeliti s of ankle AND/OR foot 54792857 Active 2017 right plantar foot UGSTAVO PALENCIAP [address] [facility], [address], [place], [address], [facility] 8 14:13:20 Sepsis 00798120 Active 2017 group b strep ANN PALENCIA [address] , [address], [place], [address], [facility] 8 14:15:46 Mixed hyperlipidem ia 662381634 Active 2017 ANN PALENCIA [address] , [address], [place], [address], [facility] 8 14:20:07 Anemia 959888314 Active 2017 ANN PALENCIA [address] , [address], [place], [address], [facility] 8 14:20:36 Gastroesopha geal reflux disease without esophagitis 066988695 Active 2017 ANN PALENCIA [address] , [address], [place], [address], [facility] 8 14:20:48 Goiter 5149945 Active 2017 ANN PALENCIA [address] [facility], [address], [place], [address], [facility] 8 08:06:57 Problem Notes None recorded. Medical Equipment None Reported. Allergies Allergen ID Allergen Name Allergen Category Reaction Reaction Severity Criticality Documentation Date Start Date Code Code System Note Provider Name and Address Organization Details Recorded Time 04903 Product containin g penicilli n (product) medicatio n rash Not available Not available 09/01/2017 34153 8001 SNOMED Not Available Not Available Not Available 83878 Product containin g cephalosp concha (product) medicatio n rash Not available Not available 09/01/2017 82611 9009 SNOMED Not Available Not Available Not Available 42633 erythromy cesar medicatio n Not available Not available Not available 09/01/2017 4053 RxNorm Not Available Not Available Not Available 83477 amlodipin e medicatio n Not available Not available Not available 08/07/2019 75016 RxNorm Not Available Not Available Not Available 63407 cat dander environme nt Not available Not available Not available 08/07/2019 55566 UNK Not Available Not Available Not Available 26414 Canis lupus familiari s extract environme nt Not available Not available Not available 08/07/2019 68079 4 RxNorm Not Available Not Available Not Available 97184 Keflex medicatio n Not available Not available Not available 08/07/2019 81628 7 RxNorm Not Available Not Available Not Available 44148 clindamyc in Not available Not available Not available Not available 02/13/2024 2582 RxNorm Not Available Not Available Not Available 13325 olmesarta n medicatio n Not available Not available Not available 02/13/2024 00812 4 RxNorm Not Available Not Available Not Available 24774 Shellfish (substanc e) food,medi cation Not available Not available Not available 02/13/2024 67356 9006 SNOMED Not Available Not Available Not [...] mm[Hg] 63 mm[Hg] JOHN KAYE NP [address] [facility], [address], [place], [address] 1[facility] 5 09:35:47 Social History Question Answer Notes LastModified by Organization Details LastModified Time Tobacco Smoking Status Former Smoker smoked 1 pack/week, quit in 2001 Kellie Padilla MD [address] [facility], [address], [place], [address], [facility] 01/09/2024 19:33:16 Do You Have An Advance Directive? Yes Cpr, Transfer To Hosp, Short Term Dialysis, Art Nutrition And Hydration Okay NO Intubation Signed Information not available 01/05/2024 What Is Your Level Of Alcohol Consumption? None [id number] Information not available 12/10/2019 How Much Tobacco Do You Chew? None [id number] Information not available 12/10/2019 What Is Your Code Status? DNI Information not available 01/09/2024 Do You Or Have You Ever Used E-cigarettes Or Vape? Never Used Electronic Cigarettes [id number] Information not available 12/10/2019 Where Do You Live? SingleLevelHouse Lives Alone, Has Ramp Information not available 01/09/2024 Legal Guardian? No Information not available 01/09/2024 Do You Have A Medical Power Of Interdisciplinary Professor? Yes Information not available 01/09/2024 What Was The Date Of Your Most Recent Tobacco Screening? 01/05/2024 Information not available 01/05/2024 Do You Have An Out Of Hospital DNR? No Information not available 01/09/2024 What Is Your Relationship Status? Information not available 01/09/2024 Do You Or Have You Ever Used Smokeless Tobacco? Never Used Smokeless Tobacco [id number] Information not available 12/10/2019 How Much Tobacco Do You Smoke? No Information not available 01/09/2024 Do You Use Any Illicit Or Recreational Drugs? No Information not available 01/09/2024 Has Tobacco Cessation Counseling Been Provided? No N/a As Pt No Longer Smokes Information not available 01/09/2024 How Many Years Have You Smoked Tobacco? 20 [id number] Information not available 12/10/2019 Do You Or [...] SNOMED-CT Code Diagnosis ICD10 Code Diagnosis Note [id number] JOHN KAYE NP [facility] [address] [place] [address] 02/28/2024 13:35:19 02/29/2024 16:23:48 Essential hypertension 27593986 I10 Still running on the higher sideCurren tly on:hydrala zine to 50 mg bid - just increased 02/18 - consider tid dosinglosa rtan 100 mg qd.Monitor BP and labs.cont adjusting prn Non-toxic multinodular goiter 97992780 E04.2 hx ofpt requesting records from [facility] regarding left goiter biopsy done on 11/23/23, results obtained and benign.she does have large left neck goiter and needs fu02/22/24 referral to [facility] endocr[facility]gy requested Osteomyeli tis of ankle AND/OR foot 46690206 M86.8X7 labs and infection resolvingC ompleted abx IV and probioticF /U with [facility] ID, Dr. Carlton, [phone] 22Monitor CBC/BMP/ES R/CRP weekly on Wednesdays and fax to ID.Continu e APAP 650 mg q 4 hrs prn for pain.monit or for s/s of infectionp icc removed on 02/18 Diabetic foot ulcer 3710 31131 L97.519 Continue wound care as ordered.Mo nitor for healing. Asthenia 33931074 R53.1 Remains deconditio jamal.Needs PT/OT for strengthen ing, balance, gait training, safety and function.C ontinue fall precaution s.Monitor for safety. Fracture o f neck of femur 6267685 S72.002A Recovering well from hemiarthro plasty on 11/28.PT/O T as above.F/U with ortho as planned.AP AP prn painfu with Dr schmidt on 02/22, requesting office note for review Pressure i njury of sacral region of back 166159063 L89.159 Continue wound care as ordered.Mo nitor for healing. Chronic ki dney disease stage 3 051019766 N18.31 Back to baseline.C ontinue to avoid nephrotoxi c meds as able.Monit or labs.Renal consult prn. Diabetes mellitus 248971 09 E11.21 Sugars in good control since here. stableHgA1 C 6.4Continu elantus 20U qd and SSIMonitor fingerstic ks TID and HgA1C q 3 months. Gastroesop hageal reflux disease without esophagitis 301815008 K21.9 No current sxs, on no meds.cont omeprazole qdzofran 4 mg po prn q 6Monitor for GI sxs. Anemia 216641438 D50.8 Mild at baseline, likely due to CKD. stableWors ened after hip surgery as expected.C ontinueFeS O4 325 mg qdMonitor labs Depressive disorder 3548 9007 F33.8 Mood good today.Cont inuesertra line 50 mg qdMonitor mood.Psych consult prn. [id number] Coco Patiño NP [address] [address] 02/29/2024 13:36:58 03/01/2024 15:08:25 Essential hypertension 32616941 I10 BP high for some time now even with med increases, 165/80 and running on high side still increase hydralazin e from 50 mg bid to tidcontlos abigail 100 mg qd.Monitor BP and labs.cont adjusting prn Non-toxic multinodular goiter 20727067 E04.2 hx ofpt requesting records from [facility] regarding left goiter biopsy done on 11/23/23, results obtained and benign with less than 4% malignancy rateshe does have large left neck goiter and needs fu02/22/24 referral to [facility] endocr[facility]gy requested Osteomyeli tis of ankle AND/OR foot 64342626 M86.8X7 labs and infection resolvingf ollowed by wound team hereComple mikal abx IV and probioticF /U with [facility] ID, Dr. Carlton, [phone] 22Monitor CBC/BMP/ES R/CRP weekly on Wednesdays and fax to ID.Continu eAPAP 650 mg q 4 hrs prn for pain.monit or for s/s of infectionp icc removed on 02/18 and no fevers, chills or s/s of infection Diabetic foot ulcer 3710 62209 L97.519 Continue wound care as ordered.Mo nitor for healing. Asthenia 17922963 R53.1 Remains deconditio jamal.Needs PT/OT for strengthen ing, balance, gait training, safety and function.C ontinue fall precaution s.Monitor for safety. Fracture o f neck of femur 0493183 S72.002A Recovering well from hemiarthro plasty on 11/28.PT/O T as above.F/U with ortho as planned.AP AP prn painfu with Dr schmidt on 02/22, requesting office note for review, pt states no new changes Pressure i njury of sacral region of back 810039048 L89.159 Continue wound care as ordered.Mo nitor for healing. Chronic ki dney disease stage 3 210264544 N18.31 Back to baseline.C ontinue to avoid nephrotoxi c meds as able.Monit or labs.Renal consult prn. Diabetes mellitus 685367 09 E11.21 Sugars in good control since here. stable 130s latelyHgA1 C 6.4Continu elantus 20U qd and SSIMonitor fingerstic ks TID and HgA1C q 3 months. [id number] Gilson Davidson MD [address] [address] 03/06/2024 10:15:20 03/07/2024 11:03:13 Essential hypertension 08368583 I10 hydralazin e recently increasedm onitor bp and titrate if remains elevated Osteomyeli tis of ankle AND/OR foot 63894739 M86.8X7 completed IV abxstill with right foot ulcer requiring wound carecoordi panchito with ID and update with concerns Asthenia 08299362 R53.1 ambulating short distance with walker and therapyhow ever still requiring 24/7 carePatien t lives alone currently unable to be cared for in communityI nsurance is dischargin g however social work is assisting with [facility] Chronic ki dney disease stage 3 752565819 N18.31 monitor renal functionav oid nephrotoxi c meds as ablenephro consult prn [id number] Coco Patiño NP [address] [address] 03/15/2024 08:39:43 03/26/2024 13:38:06 Osteomyelitis of ankle AND/OR foot 56744410 M86.8X7 completed IV abxstill with right foot ulcer requiring wound care team and now new malodor and callous open with drainage start doxycyclin e 100 mg po bid x 10days with probiotic and reevalfu with ID and update with concerns prnwound team to follow for debridemen t and local carefollow bmp and cbc weekly Asthenia [id number] R53.1 ambulating short distance with walker and therapyhow ever still requiring 05/09 carePatien t lives alone currently unable to be cared for in communitys ocial work to cont for safe dc plan with ready, she is currently requiring abx for foot infection and has open wound to right charcot foot causing balance issues Essential hypertension 87691601 I10 bps 130s post meds with recent increases of meds belowhydra lazine 50 mg po tidlosarta n 200 mg po qdmonitor bp and titrate if remains elevated Chronic ki dney disease stage 3 110173746 N18.31 monitor renal functionav oid nephrotoxi c meds as ablenephro consult prn Nausea, vo miting and diarrhea 2455558 R11.2 resolved with mild case of nausea, vomiting, and diarrheazo andreina and immodium prnencoura ge po fluidsmoni tor for need for iVF [id number] JOHN KAYE NP [address] [address] 03/27/2024 09:18:24 03/28/2024 13:24:31 Osteomyelitis of ankle AND/OR foot 42298067 M86.8X7 completed IV abxstill with right foot ulcer - referred back to wound care due to decline in status.Com pleted doxycyclin e x 10 dWound debrided 03/26 - now with granular wound bed.Contin ue collagen and alginate dressing qd.VSS except for elevated BPfu with ID and update with concerns prnfollow bmp and cbc weekly Essential hypertension 74919933 I10 BP still runs on the higher side.Curre ntly on:hydrala zine 50 mg po tid -> increase to qid/q 6 hrslosarta n 200 mg po qdmonitor bp and titrate if remains elevated Asthenia 21366903 R53.1 ambulating short distance with walker and therapyhow ever still requiring 24/ carePatien t lives alone currently unable to be cared for in communitys ocial work to cont for safe dc plan with ready, she is currently requiring abx for foot infection and has open wound to right charcot foot causing balance issues Chronic ki dney disease stage 3 502450462 N18.31 monitor renal functionav oid nephrotoxi c meds as ablenephro consult prn Non-toxic multinodular goiter 67428341 E04.2 hx ofpt requesting records from [facility] regarding left goiter biopsy done on 11/23/23, results obtained and benign.she does have large left neck goiter and needs fu02/22/24 referral to [facility] endocr[facility]gy requested, appt. set for 04/19 Diabetic foot ulcer 3710 13641 L97.519 Continue wound care as ordered. see above.Tressa beyer for healing. Fracture o f neck of femur 9715225 S72.002A Recovering well from hemiarthro plasty on 11/28.F/U with ortho as planned.AP AP prn pain Diabetes mellitus 495740 09 E11.21 Sugars in good control since here. stableHgA1 C 6.4Continu elantus 20U qd and SSIMonitor fingerstic ks TID and HgA1C q 3 months. Gastroesop hageal reflux disease without esophagitis 917416740 K21.9 No current sxs, on no meds.cont omeprazole qdzofran 4 mg po prn q 6Monitor for GI sxs. Anemia 372716680 D50.8 Mild at baseline, likely due to CKD. stableWors ened after hip surgery as expected.C ontinueFeS O4 325 mg qdMonitor labs Depressive disorder 3548 9007 F33.8 Mood good today.Cont inuesertra line 50 mg qdMonitor mood.Psych consult prn. Health Concerns Section Related Observation LastModified by Organization Detai ls LastModified Time None Recorded Concern Status LastModified by Organization Details LastModified Time None Recorded Payers Encounter Date Sequence Insurance Name Policy Number Policy Hughes Covered Member ID Hughes Member ID Guarantor Name 03/27/2024 1 [facility]: MEDICARE HMO BLUE (MEDICARE REPLACEMENT HMO) [id number] Olga Kat [id number] Olga Kat Notes Date Note Type Note Provider Name and Address Organization Details Recorded Time 03/27/2024 text/html ANDREA is seen today for [...] adjustment.BS in good control, mostly 100s.Referred to [facility] endocrine for assessment of chronic left neck [...] fx s/p hemiarthroplasty. JOHN KAYE NP [address] [facility], [address], [place], [address], [facility] [employer] 03/27/2024 09:56:45 OBGyn Episode No OBEpisode recorded.
--- OUTSIDE RECORDS SUMMARY | 2024-04-02 10:25 | XMS_ITS | Encounter Summary ---
Author Organization [facility] Address [address] [place] [address] Care Team Providers Care Chief Of Production Name Role Phone Kristin Bellamy MD Primary Care Provider [phone] Encounter Details Date Type Department Care Team (Late st Contact Info) Description 01/09/2024 Lab Requisition [facility] - Main Lab [address] [facility] [place] [address] Gilson Davidson MD [address] [facility] [address] [place], [address] Type 2 diabetes mellitus without complications [...] Date/Time Associated Diagnosis Comments SEDIMENTATION RATE Routine 01/10/2024 7: 05 AM [...] this encounter Results * (ABNORMAL) Sedimentation rate (01/10/2024 7:05 AM EST) Pathologist [facility] Sed Rate 80(H) 0 - 30 mm/hr LAB HEMETOLOGY METHOD 01/10/2024 10:22 AM EST [facility] Blood Venous blood specimen / Unknown Venipuncture / Unknown 01/10/2024 7:05 AM EST 01/10/2024 10:05 AM EST us Gilson Davidson MD LAB BLOOD ORDERABLES Final Resul t Performing Organization Address [facility]/ZIP Co de Phone Number [facility] [address] [place] [address], * (ABNORMAL) C-reactive protein (01/10/2024 7:05 AM EST) [facility] C-Reactive Protein 2.18(H) <=0.50 mg/dL LAB CHEMISTRY METHOD 01/10/2024 10:50 AM EST [facility] Blood Venous blood specimen / Unknown Venipuncture / Unknown 01/10/2024 7:05 AM EST 01/10/2024 9:58 AM EST us Gilson Davidson MD LAB BLOOD ORDERABLES Final Resul t [facility] [address] [place] [address], * (ABNORMAL) Basic metabolic panel (01/10/2024 7:05 AM EST) [facility] Sodium 139 133 - 145 mmol/L LAB CHEMISTRY METHOD 01/10/2024 10:53 AM EST [facility] Potassium 4.7 3.5 - 5.5 mmol/L LAB CHEMISTRY METHOD 01/10/2024 10:53 AM [facility] Chloride 106 96 - 110 mmol/L LAB CHEMISTRY METHOD 01/10/2024 10:53 AM [facility] CO2 24 21 - 32 mmol/L LAB CHEMISTRY METHOD 01/10/2024 10:53 AM [facility] Anion Gap 9 3 - 11 LAB CHEMISTRY METHOD 01/10/2024 10:53 AM [facility] Glucose 155(H) 70 - 100 mg/dL LAB CHEMISTRY METHOD 01/10/2024 10:53 AM [facility] BUN 18 5 - 25 mg/dL LAB CHEMISTRY METHOD 01/10/2024 10:53 AM [facility] Creatinine 1.20(H) 0.50 - 1.10 mg/dL LAB CHEMISTRY METHOD 01/10/2024 10:53 AM [facility] eGFR 51(L) >=60 mL/min/1. 73m2 LAB CHEMISTRY METHOD 01/10/2024 10:53 AM [facility] Comment:Calculation based on the??Chronic Kidney Disease Epidemiology Collaboration (CKD-EPI) equation refit??without adjustment for race. BUN/Creatinine Ratio 15.0 LAB CHEMISTRY METHOD 01/10/2024 10:53 AM [facility] Calcium 9.4 8.5 - 10.5 mg/dL LAB CHEMISTRY METHOD 01/10/2024 10:53 AM [facility] Blood Venous blood specimen / Unknown Venipuncture / Unknown 01/10/2024 7:05 AM EST 01/10/2024 9:58 AM EST us Gilson Davidson MD LAB BLOOD ORDERABLES Final Resul t [facility] [address] [place] [address], * (ABNORMAL) Complete blood count (01/10/2024 7:05 AM EST) [facility] WBC 12.8(H) 4.8 - 10.8 K/mcL LAB HEMETOLOGY METHOD 01/10/2024 10:13 AM [facility] RBC 3.40(L) 3.80 - 4.80 M/mcL LAB HEMETOLOGY METHOD 01/10/2024 10:13 AM [facility] Hemoglobin 9.6(L) 11.5 - 16.0 g/dL LAB HEMETOLOGY METHOD 01/10/2024 10:13 AM [facility] Hematocrit 30.8(L) 35.0 - 47.0 % LAB HEMETOLOGY METHOD 01/10/2024 10:13 AM [facility] MCV 90.1 79.0 - 98.0 FL LAB HEMETOLOGY METHOD 01/10/2024 10:13 AM [facility] MCH 28.1 27.0 - 32.0 pcg LAB HEMETOLOGY METHOD 01/10/2024 10:13 AM [facility] MCHC 31.2(L) 32.0 - 37.0 g/dL LAB HEMETOLOGY METHOD 01/10/2024 10:13 AM [facility] RDW 13.1 11.0 - 15.0 % LAB HEMETOLOGY METHOD 01/10/2024 10:13 AM [facility] Platelets 349 130 - 400 K/mcL LAB HEMETOLOGY METHOD 01/10/2024 10:13 AM [facility] MPV 9.7 7.0 - 11.0 FL LAB HEMETOLOGY METHOD 01/10/2024 10:13 AM [facility] NRBC 0.0 <1.0 % LAB HEMETOLOGY METHOD 01/10/2024 10:13 AM [facility] NRBC Absolute 0.00 <0.10 K/mcL LAB HEMETOLOGY METHOD 01/10/2024 10:13 AM EST [facility] Blood Venous blood specimen / Unknown Venipuncture / Unknown 01/10/2024 7:05 AM EST 01/10/2024 10:05 AM EST us Gilson Davidson MD LAB BLOOD ORDERABLES Final Resul t [facility] [address] [place] [address], documented in this encounter Visit Diagnoses Diagnosis Type 2 diabetes mellitus without complications (CMS/HCC) Essential (primary) hypertension Unspecified essential hypertension documented in this encounter Care Teams Chief Of Production Relationship Specialty Start Date End Date Kristin Bellamy MD [address] [facility] [address] [place], [place] PCP - General Internal Medicine 11/29/19 documented as of this encounter
--- OUTSIDE RECORDS SUMMARY | 2024-04-02 10:25 | XMS_ITS | Encounter Summary ---
Author Organization [facility] Address [id number] [place] [id number] Care Team Providers Care Carriage Rider Name Role Phone Kristin Bellamy MD Primary Care Provider [phone] Encounter Details Date Type Department Care Team (Late st Contact Info) Description 01/16/2024 Lab Requisition [facility] - Main Lab [address] [facility] [place] [address] Gilson Davidson MD [address] [facility] [address] [place], [phone] Type 2 diabetes mellitus without complications [...] Date/Time Associated Diagnosis Comments SEDIMENTATION RATE Routine 01/17/2024 6: 11 AM [...] this encounter Results * (ABNORMAL) Sedimentation rate (01/17/2024 6:11 AM EST) Sed Rate 95(H) 0 - 30 mm/hr LAB HEMETOLOGY METHOD 01/17/2024 11:56 AM EST [facility] Blood Venous blood specimen / Unknown Venipuncture / Unknown 01/17/2024 6:11 AM EST 01/17/2024 10:22 AM EST us Gilson Davidson MD LAB BLOOD ORDERABLES Final Resul t Performing Organization Address [facility]/ZIP Co de Phone Number [facility] [address] [place] [address], * (ABNORMAL) C-reactive protein (01/17/2024 6:11 AM EST) [facility] C-Reactive Protein 0.58(H) <=0.50 mg/dL LAB CHEMISTRY METHOD 01/17/2024 12:14 PM EST [facility] Blood Venous blood specimen / Unknown Venipuncture / Unknown 01/17/2024 6:11 AM EST 01/17/2024 10:22 AM EST us Gilson Davidson MD LAB BLOOD ORDERABLES Final Resul t Performing Organization Address City/[facility]/ZIP Co de Phone Number [facility] [address] [place] [address], [place] [phone] * (ABNORMAL) Basic metabolic panel (01/17/2024 6:11 AM EST) Pathologist [facility] Sodium 140 133 - 145 mmol/L LAB CHEMISTRY METHOD 01/17/2024 12:13 PM EST [facility] Potassium 4.7 3.5 - 5.5 mmol/L LAB CHEMISTRY METHOD 01/17/2024 12:13 PM [facility] Chloride 109 96 - 110 mmol/L LAB CHEMISTRY METHOD 01/17/2024 12:13 PM [facility] CO2 24 21 - 32 mmol/L LAB CHEMISTRY METHOD 01/17/2024 12:13 PM [facility] Anion Gap 7 3 - 11 LAB CHEMISTRY METHOD 01/17/2024 12:13 PM [facility] Glucose 159(H) 70 - 100 mg/dL LAB CHEMISTRY METHOD 01/17/2024 12:13 PM [facility] BUN 26(H) 5 - 25 mg/dL LAB CHEMISTRY METHOD 01/17/2024 12:13 PM [facility] Creatinine 1.27(H) 0.50 - 1.10 mg/dL LAB CHEMISTRY METHOD 01/17/2024 12:13 PM [facility] eGFR 48(L) >=60 mL/min/1. 73m2 LAB CHEMISTRY METHOD 01/17/2024 12:13 PM [facility] Comment:Calculation based on the??Chronic Kidney Disease Epidemiology Collaboration (CKD-EPI) equation refit??without adjustment for race. BUN/Creatinine Ratio 20.5 LAB CHEMISTRY METHOD 01/17/2024 12:13 PM [facility] Calcium 9.0 8.5 - 10.5 mg/dL LAB CHEMISTRY METHOD 01/17/2024 12:13 PM [facility] Blood Venous blood specimen / Unknown Venipuncture / Unknown 01/17/2024 6:11 AM EST 01/17/2024 10:22 AM EST us Gilson Davidson MD LAB BLOOD ORDERABLES Final Resul t [facility] [address] [place] [address], * (ABNORMAL) Complete blood count (01/17/2024 6:11 AM EST) [facility] WBC 7.9 4.8 - 10.8 K/mcL LAB HEMETOLOGY METHOD 01/17/2024 11:31 AM [facility] RBC 3.50(L) 3.80 - 4.80 M/mcL LAB HEMETOLOGY METHOD 01/17/2024 11:31 AM [facility] Hemoglobin 9.8(L) 11.5 - 16.0 g/dL LAB HEMETOLOGY METHOD 01/17/2024 11:31 AM [facility] Hematocrit 31.6(L) 35.0 - 47.0 % LAB HEMETOLOGY METHOD 01/17/2024 11:31 AM [facility] MCV 90.3 79.0 - 98.0 FL LAB HEMETOLOGY METHOD 01/17/2024 11:31 AM [facility] MCH 28.0 27.0 - 32.0 pcg LAB HEMETOLOGY METHOD 01/17/2024 11:31 AM [facility] MCHC 31.0(L) 32.0 - 37.0 g/dL LAB HEMETOLOGY METHOD 01/17/2024 11:31 AM [facility] RDW 13.6 11.0 - 15.0 % LAB HEMETOLOGY METHOD 01/17/2024 11:31 AM [facility] Platelets 303 130 - 400 K/mcL LAB HEMETOLOGY METHOD 01/17/2024 11:31 AM [facility] MPV 10.3 7.0 - 11.0 FL LAB HEMETOLOGY METHOD 01/17/2024 11:31 AM [facility] NRBC 0.0 <1.0 % LAB HEMETOLOGY METHOD 01/17/2024 11:31 AM [facility] NRBC Absolute 0.00 <0.10 K/mcL LAB HEMETOLOGY METHOD 01/17/2024 11:31 AM EST [facility] Blood Venous blood specimen / Unknown Venipuncture / Unknown 01/17/2024 6:11 AM EST 01/17/2024 10:22 AM EST us Gilson Davidson MD LAB BLOOD ORDERABLES Final Resul t [facility] [address] [place] [address], documented in this encounter Visit Diagnoses Diagnosis Type 2 diabetes mellitus without complications (CMS/HCC) Essential (primary) hypertension Unspecified essential hypertension documented in this encounter Care Teams Carriage Rider Relationship Specialty Start Date End Date Kristin Bellamy MD [address] [facility] [address] [place], [place] PCP - General Internal Medicine 11/29/19 documented as of this encounter
--- OUTSIDE RECORDS SUMMARY | 2024-04-02 10:25 | XMS_ITS | Continuity of Care Document ---
Author Organization [facility], [facility] Address [address] [place] [address] Care Team Providers Care Offset Machine Operator Name Role Phone [facility] OTHER [...] Address Organization Details Recorded Time Vasovagal syncope 519723605 Active 2019 ANN PALENCIA [address], [place], [address], [facility] 0 10:46:40 Acute insomnia 771274322 Active 2019 ANN PALENCIA [address], [address], [place], [address], [facility] 0 12:20:58 Seasonal allergy 860292306 Active 2023 Coco Patiño NP [address], [address], [place], [address], [facility] 4 08:54:18 Constipation 15853292 Active 2023 Coco Patiño NP [address], [address], [place], [address], [facility] 4 08:55:05 Depressive disorder 49653529 Active 2023 Coco Patiño NP [address] [facility], [address], [place], [address], [facility] 4 09:18:55 Fracture of neck of femur 2823192 Active 2023 Coco Patiño NP [address] [facility], [address], [place], [address], [facility] 4 09:23:30 Non-toxic multinodular goiter 39270143 Active 2023 Kellie Padilla MD [address] [facility], [address], [place], [address], [facility] 4 15:57:10 Diabetes mellitus 72599794 Active [address] [facility], [address], [place], [address], [facility] 8 14:10:02 Neuropathy due to diabetes mellitus 668004053 Active [address] [facility], [address], [place], [address], [facility] 8 14:10:12 Asthma 937816236 Active [address] [facility], [address], [place], [address], [facility] 8 14:10:19 Essential hypertension 86571337 Active [address] [facility], [address], [place], [address], [facility] 8 14:10:38 Diabetic foot ulcer 773272600 Active [address] [facility], [address], [place], [address], [facility] 8 14:11:07 Charcot's joint of foot 595588772 Active [address] [facility], [address], [place], [address], [facility] 8 14:11:40 Cellulitis 430541082 Active [address] [facility], [address], [place], [address], [facility] 8 14:11:51 Chronic kidney disease stage 3 726124874 Active 2017 ANN PALENCIA [address], [place], [address], [facility] 8 14:12:00 Osteomyeliti s of ankle AND/OR foot 53851675 Active 2017 right plantar foot GUSTAVO PALENCIAP [address] [facility], [address], [place], [address], [facility] 8 14:13:20 Sepsis 42900097 Active 2017 group b strep ANN PALENCIA [address] , [address], [place], [address], [facility] 8 14:15:46 Mixed hyperlipidem ia 165766979 Active 2017 ANN PALENCIA [address] , [address], [place], [address], [facility] 8 14:20:07 Anemia 647633973 Active 2017 ANN PALENCIA [address] , [address], [place], [address], [facility] 8 14:20:36 Gastroesopha geal reflux disease without esophagitis 137485198 Active 2017 ANN PALENCIA [address] , [address], [place], [address], [facility] 8 14:20:48 Goiter 9878682 Active [address] [facility], [address], [place], [address], [facility] 8 08:06:57 Problem Notes None recorded. Medical Equipment None Reported. Allergies Allergen ID Allergen Name Allergen Category Reaction Reaction Severity Criticality Documentation Date Start Date Code Code System Note Provider Name and Address Organization Details Recorded Time 52527 Product containin g penicilli n (product) medicatio n rash Not available Not available 09/01/2017 36402 8001 SNOMED Not Available Not Available Not Available 07220 Product containin g cephalosp concha (product) medicatio n rash Not available Not available 09/01/2017 83172 9009 SNOMED Not Available Not Available Not Available 38593 erythromy cesar medicatio n Not available Not available Not available 09/01/2017 4053 RxNorm Not Available Not Available Not Available 45636 amlodipin e medicatio n Not available Not available Not available 08/07/2019 93320 RxNorm Not Available Not Available Not Available 81749 cat dander environme nt Not available Not available Not available 08/07/2019 31721 UNK Not Available Not Available Not Available 49550 Canis lupus familiari s extract environme nt Not available Not available Not available 08/07/2019 40873 4 RxNorm Not Available Not Available Not Available 76219 Keflex medicatio n Not available Not available Not available 08/07/2019 40596 7 RxNorm Not Available Not Available Not Available 25706 clindamyc in Not available Not available Not available Not available 02/13/2024 2582 RxNorm Not Available Not Available Not Available 13994 olmesarta n medicatio n Not available Not available Not available 02/13/2024 85840 4 RxNorm Not Available Not Available Not Available 45848 Shellfish (substanc e) food,medi cation Not available Not available Not available 02/13/2024 42077 9006 SNOMED Not Available Not Available Not Available Medications Not known to be on any medication Vitals Date Recorded Body height Body mass index (BMI) Body weight Heart rate Respiratory rate Body temperature Oxygen saturation Oxygen saturation in Arterial blood by Pulse oximetry Systolic blood pressure Diastolic blood pressure Provider Name and Address Organization Details Last Updated DateTime 5 165.1 cm 29.5 kg/m2 11713.8 5 g 74 /min 18 /min 98 [degF] 96 % 96 % 162 mm[Hg] 74 mm[Hg] Coco Patiño NP [address] [facility], [address], [place], [address], [facility] 5 20:06:31 Social History Question Answer Notes LastModified by Organization Details LastModified Time Tobacco Smoking Status Former Smoker smoked 1 pack/week, quit in 2002 Kellie Padilla MD [address] [facility], [address], [place], [address], [facility] 01/09/2024 19:33:16 Do You Have An Advance Directive? Yes Cpr, Transfer To Hosp, Short Term Dialysis, Art Nutrition And Hydration Okay NO Intubation Signed Information not available 01/05/2024 What Is Your Level Of Alcohol Consumption? None [id number] Information not available 12/10/2019 How Much Tobacco Do You Chew? None [id number] Information not available 12/10/2019 What Is Your Code Status? DNI Information not available 01/09/2024 Do You Or Have You Ever Used E-cigarettes Or Vape? Never Used Electronic Cigarettes [id number] Information not available 12/10/2019 Where Do You Live? SingleLevelHouse Lives Alone, Has Ramp Information not available 01/09/2024 Legal Guardian? No Information not available 01/09/2024 Do You Have A Medical Power Of Asbestos Abatement Technician? Yes Information not available 01/09/2024 What Was The Date Of Your Most Recent Tobacco Screening? 01/05/2024 Information not available 01/05/2024 Do You Have An Out Of Hospital DNR? No Information not available 01/09/2024 What Is Your Relationship Status? Information not available 01/09/2024 Do You Or Have You Ever Used Smokeless Tobacco? Never Used Smokeless Tobacco [id number] Information not available 12/10/2019 How Much Tobacco Do You Smoke? No Information not available 01/09/2024 Do You Use Any Illicit Or Recreational Drugs? No Information not available 01/09/2024 Has Tobacco Cessation Counseling Been Provided? No N/a As Pt No Longer Smokes Information not available 01/09/2024 How Many Years Have You Smoked Tobacco? 20 [id number] Information not available 12/10/2019 Do You Or [...] SNOMED-CT Code Diagnosis ICD10 Code Diagnosis Note [id number] Kellie Padilla MD [address] [address] 02/13/2024 16:07:50 02/15/2024 13:31:01 Essential hypertension 54357435 I10 Was good for awhile, now SBP [...] labs. Osteomyeli tis of ankle AND/OR foot 88094951 M86.8X7 ESR increased last week, but CRP good. Could be due to foot wound.Comp leted abx yest, continue probiotic 1 tab BID until 02/18 (7 days after end of abx)F/U with [facility], Dr. Carlton, , will have nursing call on 02/14 to see if she needs f/u.Monito r CBC/BMP/ES R/CRP weekly on Wednesdays and fax to ID.Continu e APAP 650 mg q 4 hrs prn for pain. [id number] Coco Patiño NP [address] [address] 02/16/2024 11:54:27 02/19/2024 13:17:38 Essential hypertension 10148108 I10 seems to have intermitte nt high bpwith recent adjustment sconthydra lazine 50 mg qhshydrala zine 25 mg po amlosartan 100 mg qd.Monitor BP and labs.cont adjusting prn Osteomyeli tis of ankle AND/OR foot 39517028 M86.8X7 labs and infection resolvingC ompleted abx IVcontinue probiotic 1 tab BID until 02/18 (7 days after end of abx)F/U with [facility], Dr. Carlton, [phone] 22Monitor CBC/BMP/ES R/CRP weekly on Wednesdays and fax to ID.? if see followed upContinue APAP 650 mg q 4 hrs prn for pain.monit or for s/s of infection Diabetic foot ulcer 3710 15306 L97.519 Continue wound care as ordered.Mo nitor for healing. Asthenia 59474248 R53.1 Remains deconditio jamal.Needs PT/OT for strengthen ing, balance, gait training, safety and function.C ontinue fall precaution s.Monitor for safety. Fracture o f neck of femur 5391737 S72.002A Recovering well from hemiarthro plasty on 11/28.PT/O T as above.F/U with ortho as planned.AP AP prn painMonito r [facility]SM Pressure i njury of sacral region of back 528259978 L89.159 Continue wound care as ordered.Mo nitor for healing. Chronic ki dney disease stage 3 378730236 N18.31 Back to baseline.C ontinue to avoid nephrotoxi c meds as able.Monit or labs.Renal consult prn. Diabetes mellitus 528556 09 E11.21 Sugars in good control since here. stableHgA1 C 6.4Continu elantus 20U qd and SSIMonitor fingerstic ks TID and HgA1C q 3 months. Gastroesop hageal reflux disease without esophagitis 397148407 K21.9 No current sxs, on no meds.cont omeprazole qdzofran 4 mg po prn q 6Monitor for GI sxs. Anemia 872476768 D50.8 Mild at baseline, likely due to CKD. stableWors ened after hip surgery as expected.C ontinueFeS O4 325 mg qdMonitor labs Depressive disorder 3548 9007 F33.8 Mood good today.Cont inuesertra line 50 mg qdMonitor mood.Psych consult prn. Non-toxic multinodular goiter 26233073 E04.2 hx ofpt requesting records from [facility] regarding left goiter biopsy done on 11/23/23, monitor for results and re request today [id number] Coco Patiño NP [facility] [address] [place] [address] 02/19/2024 08:19:03 02/21/2024 14:18:17 Essential hypertension 49778741 I10 seems to have intermitte nt high bpwith recent adjustment scont// increase hydralazin e to 50 mg bidcontlos abigail 100 mg qd.Monitor BP and labs.cont adjusting prn Osteomyeli tis of ankle AND/OR foot 11088565 M86.8X7 labs and infection resolvingC ompleted abx IVcontinue probiotic 1 tab BID until 02/18 (7 days after end of abx)F/U with [facility], Dr. Carlton, [phone] 22Monitor CBC/BMP/ES R/CRP weekly on Wednesdays and fax to ID.? if see followed upContinue APAP 650 mg q 4 hrs prn for pain.monit or for s/s of infection remove picc line, second request Diabetic foot ulcer 3710 64834 L97.519 Continue wound care as ordered.Mo venus for healing. Asthenia [id number] R53.1 Remains deconditio jamal.Needs PT/OT for strengthen ing, balance, gait training, safety and function.C ontinue fall precaution s.Monitor for safety. Fracture o f neck of femur 0635315 S72.002A Recovering well from hemiarthro plasty on 11/28.PT/O T as above.F/U with ortho as planned.AP AP prn painMonito r CSM Pressure i njury of sacral region of back 969056196 L89.159 Continue wound care as ordered.Mo venus for healing. Chronic ki dney disease stage 3 276245535 N18.31 Back to baseline.C ontinue to avoid nephrotoxi c meds as able.Monit or labs.Renal consult prn. Diabetes mellitus 102991 09 E11.21 Sugars in good control since here. stableHgA1 C 6.4Continu elantus 20U qd and SSIMonitor fingerstic ks TID and HgA1C q 3 months. Gastroesop hageal reflux disease without esophagitis 148040307 K21.9 No current sxs, on no meds.cont omeprazole qdzofran 4 mg po prn q 6Monitor for GI sxs. Anemia 928689954 D50.8 Mild at baseline, likely due to CKD. stableWors ened after hip surgery as expected.C ontinueFeS O4 325 mg qdMonitor labs Depressive disorder 3548 9007 F33.8 Mood good today.Cont inuesertra line 50 mg qdMonitor mood.Psych consult prn. Non-toxic multinodular goiter 81223645 E04.2 hx ofpt requesting records from [facility] regarding left goiter biopsy done on 11/23/23, monitor for results and re request today02/18 request biopsy [id number] Coco Patiño NP [address] [address] 02/22/2024 08:40:30 02/23/2024 10:26:46 Essential hypertension 39786523 I10 seems to have intermitte nt high bpwith recent adjustment s improvingc onthydrala zine to 50 mg bidlosarta n 100 mg qd.Monitor BP and labs.cont adjusting prn Osteomyeli tis of ankle AND/OR foot 91429025 M86.8X7 labs and infection resolvingC ompleted abx IVcontinue probiotic 1 tab BID until 02/18 (7 days after end of abx)F/U with [facility], Dr. Carlton, [phone] 22Monitor CBC/BMP/ES R/CRP weekly on Wednesdays and fax to ID.? if see followed upContinue APAP 650 mg q 4 hrs prn for pain.monit or for s/s of infectionp icc removed on 02/18 Diabetic foot ulcer 3710 50396 L97.519 Continue wound care as ordered.Mo nitor for healing. Asthenia 30361359 R53.1 Remains deconditio jamal.Needs PT/OT for strengthen ing, balance, gait training, safety and function.C ontinue fall precaution s.Monitor for safety. Fracture o f neck of femur 2879362 S72.002A Recovering well from hemiarthro plasty on 11/28.PT/O T as above.F/U with ortho as planned.AP AP prn painfu with Dr schmidt on 02/22, family to take her Pressure i njury of sacral region of back 899620084 L89.159 Continue wound care as ordered.Mo nitor for healing. Chronic ki dney disease stage 3 321103090 N18.31 Back to baseline.C ontinue to avoid nephrotoxi c meds as able.Monit or labs.Renal consult prn. Diabetes mellitus 744184 09 E11.21 Sugars in good control since here. stableHgA1 C 6.4Continu elantus 20U qd and SSIMonitor fingerstic ks TID and HgA1C q 3 months. Gastroesop hageal reflux disease without esophagitis 214983911 K21.9 No current sxs, on no meds.cont omeprazole qdzofran 4 mg po prn q 6Monitor for GI sxs. Anemia 171163081 D50.8 Mild at baseline, likely due to CKD. stableWors ened after hip surgery as expected.C ontinueFeS O4 325 mg qdMonitor labs Depressive disorder 3548 9007 F33.8 Mood good today.Cont inuesertra line 50 mg qdMonitor mood.Psych consult prn. Non-toxic multinodular goiter 56310487 E04.2 hx ofpt requesting records from [facility] regarding left goiter biopsy done on 11/23/23, results obtained and benign.she does have large left neck goiter and needs fu02/22/24 referral to [facility] requested today [id number] JOHN KAYE NP [address] [address] 02/28/2024 13:35:19 02/29/2024 16:23:48 Essential hypertension 10000961 I10 Still running on the higher sideCurren tly on:hydrala zine to 50 mg bid - just increased 02/18 - consider tid dosinglosa rtan 100 mg qd.Monitor BP and labs.cont adjusting prn Non-toxic multinodular goiter 64741864 E04.2 hx ofpt requesting records from [facility] regarding left goiter biopsy done on 11/23/23, results obtained and benign.she does have large left neck goiter and needs fu02/22/24 referral to [facility] requested Osteomyeli tis of ankle AND/OR foot 34288120 M86.8X7 labs and infection resolvingC ompleted abx IV and probioticF /U with [facility], Dr. Carlton, [phone] 22Monitor CBC/BMP/ES R/CRP weekly on Wednesdays and fax to ID.Continu e APAP 650 mg q 4 hrs prn for pain.monit or for s/s of infectionp icc removed on 02/18 Diabetic foot ulcer 3710 83105 L97.519 Continue wound care as ordered.Mo nitor for healing. Asthenia 82559857 R53.1 Remains deconditio jamal.Needs PT/OT for strengthen ing, balance, gait training, safety and function.C ontinue fall precaution s.Monitor for safety. Fracture o f neck of femur 5302117 S72.002A Recovering well from hemiarthro plasty on 11/28.PT/O T as above.F/U with ortho as planned.AP AP prn painfu with Dr schmidt on 02/22, requesting office note for review Pressure i njury of sacral region of back 504561288 L89.159 Continue wound care as ordered.Mo nitor for healing. Chronic ki dney disease stage 3 119106245 N18.31 Back to baseline.C ontinue to avoid nephrotoxi c meds as able.Monit or labs.Renal consult prn. Diabetes mellitus 570947 09 E11.21 Sugars in good control since here. stableHgA1 C 6.4Continu elantus 20U qd and SSIMonitor fingerstic ks TID and HgA1C q 3 months. Gastroesop hageal reflux disease without esophagitis 859577432 K21.9 No current sxs, on no meds.cont omeprazole qdzofran 4 mg po prn q 6Monitor for GI sxs. Anemia 622036113 D50.8 Mild at baseline, likely due to CKD. stableWors ened after hip surgery as expected.C ontinueFeS O4 325 mg qdMonitor labs Depressive disorder 3548 9007 F33.8 Mood good today.Cont inuesertra line 50 mg qdMonitor mood.Psych consult prn. [id number] Coco Patiño NP [address] [address] 02/29/2024 13:36:58 03/01/2024 15:08:25 Essential hypertension 68201995 I10 BP high for some time now even with med increases, 165/80 and running on high side still increase hydralazin e from 50 mg bid to tidcontlos abigail 100 mg qd.Monitor BP and labs.cont adjusting prn Non-toxic multinodular goiter 28765956 E04.2 hx ofpt requesting records from [facility] regarding left goiter biopsy done on 11/23/23, results obtained and benign with less than 4% malignancy rateshe does have large left neck goiter and needs fu02/22/24 referral to [facility] requested Osteomyeli tis of ankle AND/OR foot 38748858 M86.8X7 labs and infection resolvingf ollowed by wound team hereComple mikal abx IV and probioticF /U with [facility], Dr. Carlton, [phone] 22Monitor CBC/BMP/ES R/CRP weekly on Wednesdays and fax to ID.Continu eAPAP 650 mg q 4 hrs prn for pain.monit or for s/s of infectionp icc removed on 02/18 and no fevers, chills or s/s of infection Diabetic foot ulcer 3710 68926 L97.519 Continue wound care as ordered.Mo nitor for healing. Asthenia 22932879 R53.1 Remains deconditio jaaml.Needs PT/OT for strengthen ing, balance, gait training, safety and function.C ontinue fall precaution s.Monitor for safety. Fracture o f neck of femur 8395451 S72.002A Recovering well from hemiarthro plasty on 11/28.PT/O T as above.F/U with ortho as planned.AP AP prn painfu with Dr schmidt on 02/22, requesting office note for review, pt states no new changes Pressure i njury of sacral region of back 254731292 L89.159 Continue wound care as ordered.Mo nitor for healing. Chronic ki dney disease stage 3 177940669 N18.31 Back to baseline.C ontinue to avoid nephrotoxi c meds as able.Monit or labs.Renal consult prn. Diabetes mellitus 822959 09 E11.21 Sugars in good control since here. stable 130s latelyHgA1 C 6.4Continu elantus 20U qd and SSIMonitor fingerstic ks TID and HgA1C q 3 months. [id number] Gilson Davidson MD [facility] [address] [address] 03/06/2024 10:15:20 03/07/2024 11:03:13 Essential hypertension 05482855 I10 hydralazin e recently increasedm onitor bp and titrate if remains elevated Osteomyeli tis of ankle AND/OR foot 94668318 M86.8X7 completed IV abxstill with right foot ulcer requiring wound carecoordi panchito with ID and update with concerns Asthenia 44452902 R53.1 ambulating short distance with walker and therapyhow ever still requiring 24/7 carePatien t lives alone currently unable to be cared for in communityI nsurance is dischargin g however social work is assisting with [facility] Chronic ki dney disease stage 3 962135839 N18.31 monitor renal functionav oid nephrotoxi c meds as ablenephro consult prn [id number] Coco Patiño NP [facility] [address] 03/15/2024 08:39:43 03/26/2024 13:38:06 Osteomyelitis of ankle AND/OR foot 26434757 M86.8X7 completed IV abxstill with right foot ulcer requiring wound care team and now new malodor and callous open with drainage start doxycyclin e 100 mg po bid x 10days with probiotic and reevalfu with ID and update with concerns prnwound team to follow for debridemen t and local carefollow bmp and cbc weekly Asthenia 55083108 R53.1 ambulating short distance with walker and therapyhow ever still requiring 24/7 carePatien t lives alone currently unable to be cared for in communitys ocial work to cont for safe dc plan with ready, she is currently requiring abx for foot infection and has open wound to right charcot foot causing balance issues Essential hypertension 81228410 I10 bps 130s post meds with recent increases of meds belowhydra lazine 50 mg po tidlosarta n 200 mg po qdmonitor bp and titrate if remains elevated Chronic ki dney disease stage 3 387822961 N18.31 monitor renal functionav oid nephrotoxi c meds as ablenephro consult prn Nausea, vo miting and diarrhea 7468519 R11.2 resolved with mild case of nausea, vomiting, and diarrheazo andreina and immodium prnencoura ge po fluidsmoni tor for need for iVF Health Concerns Section Related Observation LastModified by Organization Detai ls LastModified Time None Recorded Concern Status LastModified by Organization Details LastModified Time None Recorded Payers Encounter Date Sequence Insurance Name Policy Number Policy Hughes Covered Member ID Hughes Member ID Guarantor Name 03/15/2024 1 [facility] MEDICARE HMO BLUE (MEDICARE REPLACEMENT HMO) [id number] Olga Kat [id number] Olga Kat Notes Date Note Type Note Provider Name and Address Organization Details Recorded Time 03/15/2024 text/html Pt seen today fo r an acute rounding visit. Her PMH includes HTN (poor control), AODM with neuropathy, CKD stage 3A, multinodular goiter, HLD, GERD, anemia, PVD, hx of right foot osteo, and hx of left femoral fx s/p hemiarthroplasty. ANDREA is a 63 yo woman here for [...] [facility], [address], [place], [address], [facility] 03/22/2024 11:53:13 OBGyn Episode No OBEpisode recorded.
--- OUTSIDE RECORDS SUMMARY | 2024-04-02 10:25 | XMS_ITS ---
Author Organization [facility] Address [address] [place] [address] Care Team Providers Care Electrical Engineer Mep Name Role Phone Cheyenneelaine Kristin Primary Care Provider Unavailab Neri Barragan Unavailable [phone] REASON FOR VISIT cx appt 11/30/23 Encounters Encounter Location Date Provider Diagnosis [facility] [address] [place] [address] 11/28/2023 Neri Tinoco Plan Of Treatment No Information Progress Notes * Olga KATDOB:1960 (63 yo F)Acc No.[id number]:11/28/2023 Patient:?Olga KAT :1960???Age:63 Y???Sex:Female Address[address] [place], [address] * true * Date:? Generated for Vicentei salvador/Juan/eTransmitting on:?04/02/2024 10:24 AM EST
--- OUTSIDE RECORDS SUMMARY | 2024-04-02 10:25 | XMS_ITS | Encounter Summary ---
Author Organization [facility] Address [address] [place] [address] Care Team Providers Care Clinical Unit Coordinator Name Role Phone Kristin Bellamy MD Primary Care Provider [phone] Encounter Details Date Type Department Care Team ([facility] st Contact Info) Description 07/28/2017 Scanned Document [facility] [address] [phone] Roger Morales DPM [address] [place] [phone] Social History Tobacco Use Types Packs/Day Years Used Date Smoking Tobacco: Never Assessed Comments Unknown Sex and Gender Information Value Date Recorded Sex Assigned at Not on file Legal Sex Female 9:09 AM EDT Gender Identity Not on file Sexual Orientation Not on file documented as of this encounter Plan of Treatment Not on file documented as of this encounter Visit Diagnoses Not on filedocumented in this encounter Care Teams Clinical Unit Coordinator Relationship Specialty Start Date End Date Kristin Bellamy MD [address] [phone] PCP - General Internal Medicine 07/31/17 documented as of this encounter
--- OUTSIDE RECORDS SUMMARY | 2024-04-02 10:25 | XMS_ITS | Encounter Summary ---
Author Organization [facility] Address [address] [place] [phone] Care Team Providers Care Counter Professional Name Role Phone Kristin Bellamy MD Primary Care Provider [phone] Encounter Details Date Type Department Care Team (Late st Contact Info) Description 03/05/2024 Lab Requisition [facility] - Main Lab 299 [facility] [place] [address] Gilson Davidson MD [address] [facility] [address] [place], [address] Type 2 diabetes mellitus without complications [...] Date/Time Associated Diagnosis Comments SEDIMENTATION RATE Routine 03/06/2024 7: 07 AM [...] this encounter Results * (ABNORMAL) Sedimentation rate (03/06/2024 7:07 AM EST) Pathologist [facility] Sed Rate 90(H) 0 - 30 mm/hr LAB HEMETOLOGY METHOD 03/06/2024 11:28 AM EST [facility] Blood Venous blood specimen / Unknown Venipuncture / Unknown 03/06/2024 7:07 AM EST 03/06/2024 11:18 AM EST us Gilson Davidson MD LAB BLOOD ORDERABLES Final Resul t Performing Organization Address [facility]/ZIP Co de Phone Number [facility] [address] [place] [address], * (ABNORMAL) C-reactive protein (03/06/2024 7:07 AM EST) [facility] C-Reactive Protein 1.86(H) <=0.50 mg/dL LAB CHEMISTRY METHOD 03/06/2024 2:12 PM EST [facility] Blood Venous blood specimen / Unknown Venipuncture / Unknown 03/06/2024 7:07 AM EST 03/06/2024 11:18 AM EST Gilson Davidson MD LAB BLOOD ORDERABLES Final Resul t Performing Organization Address City/[facility]/ZIP Co de Phone Number [facility] [address] [place] [address], [place] [phone] * (ABNORMAL) Basic metabolic panel (03/06/2024 7:07 AM EST) [facility] Sodium 137 133 - 145 mmol/L LAB CHEMISTRY METHOD 03/06/2024 2:12 PM EST [facility] Potassium 4.8 3.5 - 5.5 mmol/L LAB CHEMISTRY METHOD 03/06/2024 2:12 PM [facility] Chloride 108 96 - 110 mmol/L LAB CHEMISTRY METHOD 03/06/2024 2:12 PM [facility] CO2 27 21 - 32 mmol/L LAB CHEMISTRY METHOD 03/06/2024 2:12 PM [facility] Anion Gap 2(L) 3 - 11 LAB CHEMISTRY METHOD 03/06/2024 2:12 PM [facility] Glucose 124(H) 70 - 100 mg/dL LAB CHEMISTRY METHOD 03/06/2024 2:12 PM [facility] BUN 30(H) 5 - 25 mg/dL LAB CHEMISTRY METHOD 03/06/2024 2:12 PM [facility] Creatinine 1.50(H) 0.50 - 1.10 mg/dL LAB CHEMISTRY METHOD 03/06/2024 2:12 PM [facility] eGFR 39(L) >=60 mL/min/1. 73m2 LAB CHEMISTRY METHOD 03/06/2024 2:12 PM [facility] Comment:Calculation based on the??Chronic Kidney Disease Epidemiology Collaboration (CKD-EPI) equation refit??without adjustment for race. BUN/Creatinine Ratio 20.0 LAB CHEMISTRY METHOD 03/06/2024 2:12 PM [facility] Calcium 9.2 8.5 - 10.5 mg/dL LAB CHEMISTRY METHOD 03/06/2024 2:12 PM [facility] Blood Venous blood specimen / Unknown Venipuncture / Unknown 03/06/2024 7:07 AM EST 03/06/2024 11:18 AM EST us Gilson Davidson MD LAB BLOOD ORDERABLES Final Resul t [facility] [address] [place] [address], * (ABNORMAL) Complete blood count (03/06/2024 7:07 AM EST) [facility] Signature WBC 7.7 4.8 - 10.8 K/mcL LAB HEMETOLOGY METHOD 03/06/2024 12:04 PM [facility] RBC 4.30 3.80 - 4.80 M/mcL LAB HEMETOLOGY METHOD 03/06/2024 12:04 PM [facility] Hemoglobin 11.9 11.5 - 16.0 g/dL LAB HEMETOLOGY METHOD 03/06/2024 12:04 PM [facility] Hematocrit 38.4 35.0 - 47.0 % LAB HEMETOLOGY METHOD 03/06/2024 12:04 PM [facility] MCV 90.1 79.0 - 98.0 FL LAB HEMETOLOGY METHOD 03/06/2024 12:04 PM [facility] MCH 27.9 27.0 - 32.0 pcg LAB HEMETOLOGY METHOD 03/06/2024 12:04 PM [facility] MCHC 31.0(L) 32.0 - 37.0 g/dL LAB HEMETOLOGY METHOD 03/06/2024 12:04 PM [facility] RDW 14.5 11.0 - 15.0 % LAB HEMETOLOGY METHOD 03/06/2024 12:04 PM [facility] Platelets 425(H) 130 - 400 K/mcL LAB HEMETOLOGY METHOD 03/06/2024 12:04 PM [facility] MPV 10.5 7.0 - 11.0 FL LAB HEMETOLOGY METHOD 03/06/2024 12:04 PM [facility] NRBC 0.0 <1.0 % LAB HEMETOLOGY METHOD 03/06/2024 12:04 PM [facility] NRBC Absolute 0.00 <0.10 K/mcL LAB HEMETOLOGY METHOD 03/06/2024 12:04 PM EST [facility] Blood Venous blood specimen / Unknown Venipuncture / Unknown 03/06/2024 7:07 AM EST 03/06/2024 11:18 AM EST us Gilson Davidson MD LAB BLOOD ORDERABLES Final Resul t [facility] [address] [place] [address], documented in this encounter Visit Diagnoses Diagnosis Type 2 diabetes mellitus without complications (CMS/HCC) Essential (primary) hypertension Unspecified essential hypertension documented in this encounter Care Teams Counter Professional Relationship Specialty Start Date End Date Kristin Bellamy MD 12[address] [facility] [address] [place], [place] PCP - General Internal Medicine 11/29/19 documented as of this encounter
--- OUTSIDE RECORDS SUMMARY | 2024-04-02 10:25 | XMS_ITS | Encounter Summary ---
Author Organization [facility] Address [address] [place] [phone] Care Team Providers Care Public Welfare Director Name Role Phone Kristin Bellamy MD Primary Care Provider [phone] Encounter Details Date Type Department Care Team (Late st Contact Info) Description 01/23/2024 Lab Requisition [facility] - Main Lab 299 [facility] [place] [address] Gilson Davidson MD 38 [facility] [address] [place], [phone] Type 2 diabetes mellitus without complications [...] Date/Time Associated Diagnosis Comments SEDIMENTATION RATE Routine 01/24/2024 8: 13 AM [...] documented in this encounter Results * (ABNORMAL) C-reactive protein (01/24/2024 8:13 AM EST) Pathologist [facility] C-Reactive Protein 1.54(H) <=0.50 mg/dL LAB CHEMISTRY METHOD 01/24/2024 12:35 PM EST [facility] Blood Venous blood specimen / Unknown Venipuncture / Unknown 01/24/2024 8:13 AM EST 01/24/2024 11:39 AM EST Gilson Davidson MD LAB BLOOD ORDERABLES Final Resul t Performing Organization Address [facility] Co de Phone Number [facility] [address] [place] [address], [place] [phone] * (ABNORMAL) Sedimentation rate (01/24/2024 8:13 AM EST) [facility] Sed Rate 91(H) 0 - 30 mm/hr LAB HEMETOLOGY METHOD 01/24/2024 12:43 PM EST [facility] Blood Venous blood specimen / Unknown Venipuncture / Unknown 01/24/2024 8:13 AM EST 01/24/2024 11:39 AM EST Gilson Davidson MD LAB BLOOD ORDERABLES Final Resul t Performing Organization Address City/[facility]/ZIP Co de Phone Number [facility] [address] [place] [address], [place] [phone] * (ABNORMAL) Basic metabolic panel (01/24/2024 8:13 AM EST) [facility] Sodium 137 133 - 145 mmol/L LAB CHEMISTRY METHOD 01/24/2024 12:25 PM EST [facility] Potassium 4.3 3.5 - 5.5 mmol/L LAB CHEMISTRY METHOD 01/24/2024 12:25 PM [facility] Chloride 103 96 - 110 mmol/L LAB CHEMISTRY METHOD 01/24/2024 12:25 PM [facility] CO2 26 21 - 32 mmol/L LAB CHEMISTRY METHOD 01/24/2024 12:25 PM [facility] Anion Gap 8 3 - 11 LAB CHEMISTRY METHOD 01/24/2024 12:25 PM [facility] Glucose 173(H) 70 - 100 mg/dL LAB CHEMISTRY METHOD 01/24/2024 12:25 PM [facility] BUN 19 5 - 25 mg/dL LAB CHEMISTRY METHOD 01/24/2024 12:25 PM [facility] Creatinine 1.20(H) 0.50 - 1.10 mg/dL LAB CHEMISTRY METHOD 01/24/2024 12:25 PM [facility] eGFR 51(L) >=60 mL/min/1. 73m2 LAB CHEMISTRY METHOD 01/24/2024 12:25 PM [facility] Comment:Calculation based on the??Chronic Kidney Disease Epidemiology Collaboration (CKD-EPI) equation refit??without adjustment for race. BUN/Creatinine Ratio 15.8 LAB CHEMISTRY METHOD 01/24/2024 12:25 PM [facility] Calcium 9.2 8.5 - 10.5 mg/dL LAB CHEMISTRY METHOD 01/24/2024 12:25 PM [facility] Blood Venous blood specimen / Unknown Venipuncture / Unknown 01/24/2024 8:13 AM EST 01/24/2024 11:39 AM EST us Gilson Davidson MD LAB BLOOD ORDERABLES Final Resul t [facility] [address] [place] [address], * (ABNORMAL) Complete blood count (01/24/2024 8:13 AM EST) [facility] WBC 6.8 4.8 - 10.8 K/mcL LAB HEMETOLOGY METHOD 01/24/2024 12:18 PM [facility] RBC 3.80 3.80 - 4.80 M/mcL LAB HEMETOLOGY METHOD 01/24/2024 12:18 PM [facility] Hemoglobin 10.3(L) 11.5 - 16.0 g/dL LAB HEMETOLOGY METHOD 01/24/2024 12:18 PM [facility] Hematocrit 33.3(L) 35.0 - 47.0 % LAB HEMETOLOGY METHOD 01/24/2024 12:18 PM [facility] MCV 88.8 79.0 - 98.0 FL LAB HEMETOLOGY METHOD 01/24/2024 12:18 PM [facility] MCH 27.5 27.0 - 32.0 pcg LAB HEMETOLOGY METHOD 01/24/2024 12:18 PM [facility] MCHC 30.9(L) 32.0 - 37.0 g/dL LAB HEMETOLOGY METHOD 01/24/2024 12:18 PM [facility] RDW 13.9 11.0 - 15.0 % LAB HEMETOLOGY METHOD 01/24/2024 12:18 PM [facility] Platelets 273 130 - 400 K/mcL LAB HEMETOLOGY METHOD 01/24/2024 12:18 PM [facility] MPV 10.7 7.0 - 11.0 FL LAB HEMETOLOGY METHOD 01/24/2024 12:18 PM [facility] NRBC 0.0 <1.0 % LAB HEMETOLOGY METHOD 01/24/2024 12:18 PM [facility] NRBC Absolute 0.00 <0.10 K/mcL LAB HEMETOLOGY METHOD 01/24/2024 12:18 PM EST [facility] Blood Venous blood specimen / Unknown Venipuncture / Unknown 01/24/2024 8:13 AM EST 01/24/2024 11:39 AM EST us Gilson Davidson MD LAB BLOOD ORDERABLES Final Resul t [facility] [address] [place] [address], documented in this encounter Visit Diagnoses Diagnosis Type 2 diabetes mellitus without complications (CMS/HCC) Essential (primary) hypertension Unspecified essential hypertension documented in this encounter Care Teams Public Welfare Director Relationship Specialty Start Date End Date Kristin Bellamy MD 1221 [facility] [address] [place], [place] PCP - General Internal Medicine 11/29/19 documented as of this encounter
--- OUTSIDE RECORDS SUMMARY | 2024-04-02 10:25 | XMS_ITS | Encounter Summary ---
Author Organization [facility] Address [address] [place] [phone] Care Team Providers Care Roster Clerk Name Role Phone Kristin Bellamy MD Primary Care Provider [phone] Encounter Details Date Type Department Care Team (Late st Contact Info) Description 02/06/2024 Lab Requisition [facility] - Main Lab 299 [facility] [place] [address] Gilson Davidson MD 38 [facility] [address] [place], [phone] Type 2 diabetes mellitus without complications [...] Date/Time Associated Diagnosis Comments SEDIMENTATION RATE Routine 02/08/2024 8: 40 AM [...] this encounter Results * (ABNORMAL) Sedimentation rate (02/08/2024 8:40 AM EST) Sed Rate 107(H) 0 - 30 mm/hr LAB HEMETOLOGY METHOD 02/08/2024 11:21 AM EST [facility] Blood Venous blood specimen / Unknown Venipuncture / Unknown 02/08/2024 8:40 AM EST 02/08/2024 10:46 AM EST us Gilson Davidson MD LAB BLOOD ORDERABLES Final Resul t Performing Organization Address [facility]/ZIP Co de Phone Number [facility] [address] [place] [address], * (ABNORMAL) C-reactive protein (02/08/2024 8:40 AM EST) [facility] C-Reactive Protein 0.63(H) <=0.50 mg/dL LAB CHEMISTRY METHOD 02/08/2024 11:26 AM EST [facility] Blood Venous blood specimen / Unknown Venipuncture / Unknown 02/08/2024 8:40 AM EST 02/08/2024 10:46 AM EST us Gilson Davidson MD LAB BLOOD ORDERABLES Final Resul t Performing Organization Address City/[facility]/ZIP Co de Phone Number [facility] [address] [place] [address], * (ABNORMAL) Basic metabolic panel (02/08/2024 8:40 AM EST) Pathologist [facility] Sodium 139 133 - 145 mmol/L LAB CHEMISTRY METHOD 02/08/2024 11:26 AM EST [facility] Potassium 4.8 3.5 - 5.5 mmol/L LAB CHEMISTRY METHOD 02/08/2024 11:26 AM [facility] Chloride 108 96 - 110 mmol/L LAB CHEMISTRY METHOD 02/08/2024 11:26 AM [facility] CO2 28 21 - 32 mmol/L LAB CHEMISTRY METHOD 02/08/2024 11:26 AM [facility] Anion Gap 3 3 - 11 LAB CHEMISTRY METHOD 02/08/2024 11:26 AM [facility] Glucose 131(H) 70 - 100 mg/dL LAB CHEMISTRY METHOD 02/08/2024 11:26 AM [facility] BUN 23 5 - 25 mg/dL LAB CHEMISTRY METHOD 02/08/2024 11:26 AM [facility] Creatinine 1.27(H) 0.50 - 1.10 mg/dL LAB CHEMISTRY METHOD 02/08/2024 11:26 AM [facility] eGFR 48(L) >=60 mL/min/1. 73m2 LAB CHEMISTRY METHOD 02/08/2024 11:26 AM [facility] Comment:Calculation based on the??Chronic Kidney Disease Epidemiology Collaboration (CKD-EPI) equation refit??without adjustment for race. BUN/Creatinine Ratio 18.1 LAB CHEMISTRY METHOD 02/08/2024 11:26 AM [facility] Calcium 9.3 8.5 - 10.5 mg/dL LAB CHEMISTRY METHOD 02/08/2024 11:26 AM [facility] Blood Venous blood specimen / Unknown Venipuncture / Unknown 02/08/2024 8:40 AM EST 02/08/2024 10:46 AM EST us Gilson Davidson MD LAB BLOOD ORDERABLES Final Resul t [facility] [address] [place] [address], * (ABNORMAL) Complete blood count (02/08/2024 8:40 AM EST) [facility] WBC 9.9 4.8 - 10.8 K/mcL LAB HEMETOLOGY METHOD 02/08/2024 11:00 AM [facility] RBC 4.20 3.80 - 4.80 M/mcL LAB HEMETOLOGY METHOD 02/08/2024 11:00 AM [facility] Hemoglobin 11.7 11.5 - 16.0 g/dL LAB HEMETOLOGY METHOD 02/08/2024 11:00 AM [facility] Hematocrit 37.5 35.0 - 47.0 % LAB HEMETOLOGY METHOD 02/08/2024 11:00 AM [facility] MCV 88.9 79.0 - 98.0 FL LAB HEMETOLOGY METHOD 02/08/2024 11:00 AM [facility] MCH 27.7 27.0 - 32.0 pcg LAB HEMETOLOGY METHOD 02/08/2024 11:00 AM [facility] MCHC 31.2(L) 32.0 - 37.0 g/dL LAB HEMETOLOGY METHOD 02/08/2024 11:00 AM [facility] RDW 14.2 11.0 - 15.0 % LAB HEMETOLOGY METHOD 02/08/2024 11:00 AM [facility] Platelets 488(H) 130 - 400 K/mcL LAB HEMETOLOGY METHOD 02/08/2024 11:00 AM [facility] MPV 10.3 7.0 - 11.0 FL LAB HEMETOLOGY METHOD 02/08/2024 11:00 AM [facility] NRBC 0.0 <1.0 % LAB HEMETOLOGY METHOD 02/08/2024 11:00 AM [facility] NRBC Absolute 0.00 <0.10 K/mcL LAB HEMETOLOGY METHOD 02/08/2024 11:00 AM EST [facility] Blood Venous blood specimen / Unknown Venipuncture / Unknown 02/08/2024 8:40 AM EST 02/08/2024 10:46 AM EST us Gilson Davidson MD LAB BLOOD ORDERABLES Final Resul t [facility] [address] [place] [address], documented in this encounter Visit Diagnoses Diagnosis Type 2 diabetes mellitus without complications (CMS/HCC) Essential (primary) hypertension Unspecified essential hypertension documented in this encounter Care Teams Roster Clerk Relationship Specialty Start Date End Date Kristin Bellamy MD 1221 [facility] [address] [place], [place] PCP - General Internal Medicine 11/29/19 documented as of this encounter
[2024-04-02 10:46] LABS: MANUAL DIFF FLAG NO
[2024-04-02 10:48] LABS: Basophils Percent Auto 0.3 % (0-2); Eosinophils Absolute Auto 0.2 X10*3/uL (0.0-0.4); Eosinophils Percent Auto 1.7 % (0-4); Hematocrit 33.7 % (37.0-47.0); Hemoglobin 10.6 g/dl (12.0-16.0); Imm Gran Abs Auto 0.27 X10*3/uL (0.00-0.03); Lymphocytes Absolute Auto 1.1 X10*3/uL (1.2-4.9); Lymphocytes Percent Auto 8.3 % (20-40); Mean Corpuscular HGB Conc 31.5 g/dl (31.0-35.0); Mean Corpuscular Hemoglobin 26.8 pg (27.0-33.0); Mean Corpuscular Volume 85.1 fL (80.0-98.0); Mean Platelet Volume 9.5 fL (9.4-12.3); Monocytes Absolute Auto 0.5 X10*3/uL (0.1-1.2); Monocytes Percent Auto 3.6 % (2-11); Neutrophils Absolute Auto 11.3 x10*3/uL (2.0-8.3); Neutrophils Percent Auto 84.1 % (45-73); Platelet Count 452 X10*3/uL (160-400); Red Blood Count 3.96 X10*6/uL (4.20-5.50); Red Cell Distribution Width 14.4 % (11.0-16.0); White Blood Count 13.5 X10*3/uL (4.8-10.8)
[2024-04-02 10:52] LABS: INTERNATIONAL NORM RATIO 1.1 (0.9-1.1); Prothrombin Time 12.9 SEC (10.9-12.4)
[2024-04-02] MEDS: vancomycin/NS 2,000 MG/500 ML PLAST..BAG 250 MG IV (11:06)
[2024-04-02] MEDS: cefTRIAXone sodium 1 GM VIAL IVPUSH (11:06)
[2024-04-02 11:11] LABS: Lactic Acid 0.9 mmol/L (0.5-2.0)
[2024-04-02 11:13] LABS: Alanine Aminotransferase 9 U/L (0-31); Albumin Level 3.2 g/dL (3.5-5.0); Alkaline Phosphatase 65 U/L (39-117); Anion Gap 14 (12-20); Aspartate Amino Transferase 36 U/L (5-31); Bilirubin Direct 0.2 mg/dL (0.0-0.5); Bilirubin Total 0.3 mg/dL (0.0-1.0); Blood Urea Nitrogen 41 mg/dL (9-16); Calcium 9.2 mg/dL (8.4-10.2); Carbon Dioxide 24 mmol/L (22-29); Chloride 105 mmol/L (96-108); Creatinine Clr Calc Pharmacy 56.4; Estimated Glomerular Filt Rate 30; Glucose Random 116 mg/dL (60-115); Magnesium 2.1 mg/dL (1.6-2.6); Potassium 4.3 mmol/L (3.3-5.1); Sodium 139 mmol/L (135-145)
[2024-04-02 11:31] LABS: Erythrocyte Sedimentation Rate 97 MM/HR (0-20)
[2024-04-02 11:51] VITALS: BP 176/81; PULSE 86; RESP 16; O2SAT 95
--- NOTE | 2024-04-02 15:46 | P.HPHOSP_ITS ---
History of Present Illness Date of Service: 04/02/24 Chief Complaint: foot infection 63-year-old female with a past medical history CKD, diabetes, diabetic foot wound, HLD, HTN, right foot osteomyelitis, PAD, presenting to the ED via EMS from [facility] due to malodorous, draining right foot wound with Charcot foot. Patient reports chronic pain with a history of neuropathy. She denies fever, chills, nausea, vomiting, diarrhea. [facility] but reports wound has been getting worse. Venous Doppler ultrasound in the ER was negative for DVT, foot x-ray shows large soft tissue ulceration to the plantar posterior midfoot but no extension of subcutaneous gas workup foot and no definitive radiographic findings of osteomyelitis. No fever, tachycardia. Mildly elevated blood pressure, no hypoxia, white blood cell count of 13.5, creatinine 1.74 with clearance close baseline. Plan is to admit patient for further management and treatment of possible acute osteomyelitis. Review of Systems 2 Review of Systems: Denies any recent fever chills or decrease in appetite respiratory denies any shortness of breath or cough cardiovascular denied chest pain gastrointestinal denies any dysphagia abdominal pain nausea vomiting or diarrhea genitourinary denies any dysuria frequency or hematuria musculoskeletal denies any joint pain or swelling neuropsych denies any weakness or seizures all other systems reviewed are negative [facility] Medical History (Updated 04/02/24 @ 15:48 by Chary Melara NP) CKD (chronic kidney disease) Vertigo Diabetic foot ulcer associated with type 2 diabetes mellitus Cellulitis PAD (peripheral artery disease) Non-toxic multinodular goiter Dyslipidemia 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 Diabetic neuropathy associated with type 2 diabetes mellitus Diabetic retinopathy associated with type 2 diabetes mellitus Diabetic nephropathy associated with type 2 diabetes mellitus 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 insulin Diabetes type 2, uncontrolled Family History Father COPD (chronic obstructive pulmonary disease) Diabetes Mother Heart disease Surgical History S/P thyroid biopsy Hx of cataract extraction Hx of LASIK Hx of eye surgery Hx of foot surgery Social History Household Members: None Housing: House Are you a primary point of care technician to a significant other at home: No Do you presently have visiting nurse or other home services: Yes Alcohol intake: current Alcohol intake frequency: does not drink Patient Tobacco Use Status: Former Tobacco user Years Smoked: 20 years e-Cigarette/Vaping Use: Never Used Advance Directives: Yes Advance Directives on File: Yes Advance Directives Date on File: 12/04/23 Do you have a plan to hurt others: No Plan service: No Current occupational status: employed Meds Allergies Allergy/AdvReac Type Severity Reaction Status Date / Time amlodipine [From Norvasc] Allergy Mild Swelling Verified 04/02/24 09:17 Penicillins Allergy Mild Rash Verified 04/02/24 09:17 erythromycin base Allergy Unknown Unknown Verified 04/02/24 09:17 enoxaparin [From Lovenox] Allergy Vomiting Verified 04/02/24 09:17 heparin Allergy Vomiting Verified 04/02/24 09:17 clindamycin [CLINDAMYCIN] AdvReac Intermediate Diarrhea Verified 04/02/24 09:17 NephrAmine Allergy Unknown Swelling Uncoded 02/23/24 10:06 Active Medications: Current Medications Acetaminophen (Acetaminophen 325 Mg Tablet) 650 mg PO Q6H PRN PRN Reason: Pain, Mild 1-3,fever,headache Calcium Carbonate (Calcium Carbonate 750 Mg Tab.Chew) 750 mg PO Q4H PRN PRN Reason: Heartburn Dextrose (Dextrose 50 % 25 Gm/50 Ml Syringe) 25 gm IVPUSH Q15M PRN; Protocol PRN Reason: per Hypoglycemia Standing Ord. Glucose (Glucose Gel 15 Gm Gel..Gram.) 15 gm PO Q15M PRN; Protocol PRN Reason: per Hypoglycemia Standing Ord. Vancomycin HCl 1,000 mg/ (Sodium Chloride) 270 mls @ 270 mls/hr IV Q12H [facility] Insulin Human Lispro (Insulin Lispro 100 Unit/Ml 3 Ml Vial) 0 unit SUBCUT QIDACHS [facility]; Protocol Magnesium Hydroxide (Milk Of Magnesia 30 Ml Oral.Susp) 30 ml PO DAILY PRN PRN Reason: Constipation Melatonin (Melatonin 3 Mg Tablet) 6 mg PO BEDTIME PRN PRN Reason: Insomnia Ondansetron HCl (Ondansetron Hcl 4 Mg/2 Ml Vial) 4 mg IVPUSH Q8H PRN PRN Reason: Nausea and Vomiting Pharmacy Consult (Consult Rx Vancomycin Dosing) 1 each MISCELLANE DAILY PRN PRN Reason: Consult order Sodium Chloride (0.9 % Sodium Chloride Flush 3 Ml Syringe) 3 ml IVFLUSH QSHIFT [facility] Home Medications ?Medication ?Instructions ?Recorded ?Confirmed ?Last Taken ?Type ferrous sulfate 325 mg (65 mg 325 mg PO QMONTH 08/07/23 12/31/23 1 Month Ago History iron) tablet,delayed release ~11/30/23 rosuvastatin 5 mg tablet 5 mg PO DAILY 08/07/23 12/31/23 12/31/23 09:00 History sertraline 50 mg tablet 50 mg PO DAILY 08/07/23 12/31/23 12/31/23 09:00 History cholecalciferol (vitamin D3) 50 50 mcg PO DAILY 11/28/23 12/31/23 12/31/23 09:00 History mcg (2,000 unit) capsule (Vitamin D3) loratadine 10 mg tablet 10 mg PO DAILY 11/28/23 12/31/23 12/31/23 09:00 History sennosides 8.6 mg tablet (senna) 8.6 mg PO DAILY PRN Constipation 12/31/23 12/31/23 Unknown History omeprazole 40 mg capsule,delayed 40 mg PO DAILY 02/23/24 Unknown History release Physical Exam 2 Vital Signs and Narrative: Vital Signs: Last Vital Signs Temp 97.5 F 04/02/24 09:13 Pulse 86 04/02/24 11:51 Resp 16 04/02/24 11:51 BP 176/81 H 04/02/24 11:51 Pulse Ox 95 04/02/24 11:51 O2 Del Method Room Air 04/02/24 11:51 BMI result Body Mass Index 63.2 Appearing in no acute distress head is normocephalic atraumatic eyes pupils are PERRLA sclera is anicteric mouth throat mucous membranes are intact and moist neck is supple no lymphadenopathy, no JVD noted lung sounds are clear to auscultation heart regular rate rhythm, clear S1, S2 positive bowel sounds, abdomen is soft, nontender neuro patient is alert x3, no focal deficits Right plantar foot ulcer Results Labs 04/02/24 10:37 04/02/24 10:34 Labs: Laboratory Results - last 24 hr 04/02/24 04/02/24 04/02/24 10:34 10:37 10:39 MCV 85.1 MCH 26.8 L MCHC 31.5 RDW 14.4 Plt Count 452 H D MPV 9.5 Immature Gran % (Auto) 2.0 H Neut % (Auto) 84.1 H Lymph % (Auto) 8.3 L [place] % (Auto) 3.6 Eos % (Auto) 1.7 Baso % (Auto) 0.3 Lymph # (Auto) 1.1 L [place] # (Auto) 0.5 Eos # (Auto) 0.2 Baso # (Auto) 0.0 Abs Immat Gran (auto) 0.27 H Absolute Neuts (auto) 11.3 H Absolute Nucleated RBC 0.000 Nucleated RBC % (auto) 0.0 ESR 97 H PT 12.9 H INR 1.1 Anion Gap 14 Estim Creat Clear Calc 56.4 Estimated GFR 30 Random Glucose 116 H Lactic Acid 0.9 Calcium 9.2 Magnesium 2.1 Total Bilirubin 0.3 Direct Bilirubin 0.2 AST 36 H ALT 9 Alkaline Phosphatase 65 C-Reactive Protein 18.70 H Total Protein 8.0 Albumin 3.2 L Imaging Radiologist's Impressions: Impressions Foot X-Ray 04/02/24 09:55 IMPRESSION: 1. Large soft tissue ulceration plantar posterior midfoot. No extension of subcutaneous gas. 2. Charcot foot, unchanged, with no definite radiographic findings of osteomyelitis. Electronically signed by: Aldair Lindsay MD 04/02/2024 01:23 PM [facility] RP Venous Duplex 04/02/24 11:19 IMPRESSION: No evidence of deep venous thrombosis involving the right lower extremity. Multiple right inguinal lymph nodes are identified, largest 3.8 x 1.2 x 3.5 cm demonstrates a fatty hilum. This study was presented today to April 02, 2024 for interpretation. Stat results provided at this time as requested by referring provider. Electronically signed by: Tati Bartlett MD 04/02/2024 01:52 PM EST RP Assessment and Plan (1) Uncontrolled hypertension: Status: Acute (2) Diabetic foot infection: Status: Acute Plan 63 year old women with a hx of DM with chronic foot ulcer Possible Osteomyelitis from diabetic foot wound foot xray not showing definitive osteo but with charcot foot, will get MRI start Vancomycin general surgery consult for possible debridement follow blood cx VENKATESH on CKD 3, mild renally dose medications monitor BMP HTN elevated blood pressure continue home medications DM 2 ss, ada diet Diabetic neuropathy no peripheral pain GERD PPI Mental health continue home medications med rec is pending DVT prophylaxis with heparin full code Quality Stroke Does the patient have a stroke diagnosis?: No VTE Prior VTE?: No VTE Risk Level:: Medical - moderate - high VTE Device Contraindication: N/A - Device Ordered VTE Drug Contraindication: Treatment Not Indicated
[2024-04-02] MEDS: 0.9 % Sodium Chloride Flush 3 ML SYRINGE IVFLUSH ×2 (16:57→21:28)
[2024-04-02 17:28] VITALS: BP 156/65; PULSE 85; RESP 18; O2SAT 94
--- NOTE | 2024-04-02 18:20 | PHA.PROG ---
Admission Date/Time: April 02, 2024 15:42 Indication: SKIN Weight in k.5 kg Adjusted body weight in Kg: [place] body weight in Kg: Obesity Dosing Indication % IBW: Serum Creatinine - Last 168 Hours 04/02/24 10:34 Creatinine 1.74 H Estimated CrCl and GFR - Last 168 Hours 04/02/24 10:34 Estim Creat Clear Calc 56.4 Estimated GFR 30 Vancomycin Loading Dose: 2000 MG Current Vancomycin Dosing Regimen: 1000 MG Q24H Vancomycin Monitoring using AUC goal of 400 - 600 range with trough as surrogate marker: DLO=784 TROUGH=14.5 Date and Time for next Vancomycin Level to be drawn: 04/04/24 @0900 Pharmacist Comments on Vancomycin Plan: Vancomycin dosing will take advantage of iPerceptions as a clinical decision support tool that uses Bayesian modeling to calculate individual patient's pharmacokinetic parameters and forecast the patient's drug concentration time course with the target goal AUC 24 range of 400 - 600 mg/L/hr.
--- NOTE | 2024-04-02 19:32 | PHA.MEDREC ---
Addendum entered by Jerrod Cifuentes 04/02/24 19:41: reviewed Original Note: Pharmacy Consult ? Medication Reconciliation Pharmacy has completed the medication reconciliation. utilized list from [facility] [place] to confirm med list.
--- NOTE | 2024-04-02 20:09 | PC.NURSE ---
MRI screening form completed
--- NOTE | 2024-04-02 20:31 | PC.NURSE ---
pt off unit to MRI. admission report written
[2024-04-02 20:40] LABS: Glucose, Whole Blood 104 mg/dL (60-115)
[2024-04-02] MEDS: gadobutroL 10 ML VIAL IVPUSH (20:57)
[2024-04-02 21:39] VITALS: BP 169/74; PULSE 71; RESP 18; TEMP 36.3; O2SAT 95
[2024-04-02 22:48] LABS: Glucose, Whole Blood 139 mg/dL (60-115)
[2024-04-03 03:21] VITALS: BP 161/74; PULSE 83; RESP 17; TEMP 36.6; O2SAT 96
--- NOTE | 2024-04-03 05:06 | PM.EVENT ---
Event Note Date of Service: 04/03/24 Event Note: Lab one bottle/one set gram negative rods . Will add zosyn Time Spent With Patient Time: Total time managing care of this patient today ____ minutes.
[2024-04-03] MEDS: Piperacillin Sodium/Tazobactam 4.5 GM in 0.9 % Sodium Chloride 100 ML IV ×4 (05:34→23:39)
[2024-04-03 06:18] LABS: MANUAL DIFF FLAG NO
[2024-04-03 06:44] LABS: Alanine Aminotransferase 6 U/L (0-31); Albumin Level 2.8 g/dL (3.5-5.0); Alkaline Phosphatase 80 U/L (39-117); Anion Gap 13 (12-20); Aspartate Amino Transferase 25 U/L (5-31); Bilirubin Total 0.3 mg/dL (0.0-1.0); Blood Urea Nitrogen 37 mg/dL (9-16); Calcium 8.8 mg/dL (8.4-10.2); Carbon Dioxide 22 mmol/L (22-29); Chloride 107 mmol/L (96-108); Creatinine Clr Calc Pharmacy 72.7; Estimated Glomerular Filt Rate 40; Glucose Random 106 mg/dL (60-115); Sodium 138 mmol/L (135-145); Total Protein 7.1 g/dL (6.5-8.0)
[2024-04-03 07:12] LABS: Basophils Percent Auto 0.4 % (0-2); Eosinophils Absolute Auto 0.3 X10*3/uL (0.0-0.4); Eosinophils Percent Auto 2.6 % (0-4); Hematocrit 28.9 % (37.0-47.0); Hemoglobin 9.4 g/dl (12.0-16.0); Imm Gran Pct Auto 1.8 % (0.0-0.4); Lymphocytes Absolute Auto 1.4 X10*3/uL (1.2-4.9); Lymphocytes Percent Auto 12.3 % (20-40); Mean Corpuscular HGB Conc 32.5 g/dl (31.0-35.0); Mean Corpuscular Hemoglobin 27.3 pg (27.0-33.0); Mean Platelet Volume 9.7 fL (9.4-12.3); Monocytes Absolute Auto 0.7 X10*3/uL (0.1-1.2); Monocytes Percent Auto 6.3 % (2-11); Neutrophils Absolute Auto 8.7 x10*3/uL (2.0-8.3); Neutrophils Percent Auto 76.6 % (45-73); Platelet Count 417 X10*3/uL (160-400); Red Blood Count 3.44 X10*6/uL (4.20-5.50); Red Cell Distribution Width 14.3 % (11.0-16.0); White Blood Count 11.3 X10*3/uL (4.8-10.8)
[2024-04-03 07:18] LABS: Estimated Average Glucose 157 mg/dL; Hemoglobin A1C 135.5203 umol/L; Hemoglobin A1c % 7.1 % (<6.0); Total Hemoglobin (HGBA1C) 2505.7059 umol/L
[2024-04-03 07:24] VITALS: BP 167/61; PULSE 70; RESP 18; TEMP 36.2; O2SAT 94
[2024-04-03 07:41] LABS: Glucose, Whole Blood 106 mg/dL (60-115)
[2024-04-03] MEDS: 0.9 % Sodium Chloride Flush 3 ML SYRINGE IVFLUSH ×3 (08:00→20:57)
--- NOTE | 2024-04-03 10:06 | HO.WOUND ---
Wound Consult: Initial 63yr old?female admitted to [facility] on 04/02/24 - See progress notes and H&P for detailed history.? Wound consult placed for Right Foot.? Patient agreeable to assessment and photo documentation.? Right Plantar Foot Etiology: ??Diabetic Wound Measurements: see charting for detailed measurement Wound Bed: adherent slough Drainage / Odor: foul odor noted - purulent Edges: ? unattached rolled Joyce wound: macerated edges - thickly callused tissue ? No Induration, Fluctuance or Warmth noted Pain: pain reported - neuropathy reported Goals of Treatment: ? Wet to moist packing with gauze placed - TT to provider to consider Dakins moist packing Recommendations: 1. Turn and Reposition every 2 hours and as needed for patient comfort.? Use pillows or wedges to support off loading positions. 2. Off Load all bony prominences with use of pillows and heel boots if needed.? Apply Preventative foams where needed. ? 3. Monitor for incontinence and moisture control, use barrier creams when needed for prevention and treatment. 4. Provide adequate and supplemental nutrition.? 5. Order low air loss mattress. 6. When applicable maintain blood glucose levels per Providers order. 7. Right Plantar Foot - Elevate heel off of bed surface. Cleanse and irrigate wound bed with NS, apply skin prep to periwound. Lightly pack wound bed with dakins moist gauze, cover with dry gauze, ABD pad and wrap. Change daily. Re-consult wound care Nurse for wound deterioration or wound changes.
--- NOTE | 2024-04-03 10:24 | P.PNIM_ITS ---
Subjective Subjective Date of Service: 04/03/24 Review of Systems Follow up osteomyelitis to right foot No complaints of pain or discomfort Physical Exam 2 Vital Signs: Vital Signs: Last Vital Signs Temp 97.2 F 04/03/24 07:24 Pulse 70 04/03/24 07:24 Resp 18 04/03/24 07:24 BP 167/61 H 04/03/24 07:24 Pulse Ox 94 04/03/24 07:24 O2 Del Method Room Air 04/03/24 07:24 BMI result Body Mass Index 63.2 Appearing in no acute distress lung sounds are clear to auscultation heart regular rate rhythm, clear S1, S2 positive bowel sounds, abdomen is soft, nontender neuro patient is alert x3, no focal deficits Objective Data Active Medications Acetaminophen (Acetaminophen 325 Mg Tablet) 650 mg PO Q6H PRN PRN Reason: Pain, Mild 1-3,fever,headache Calcium Carbonate (Calcium Carbonate 750 Mg Tab.Chew) 750 mg PO Q4H PRN PRN Reason: Heartburn Dextrose (Dextrose 50 % 25 Gm/50 Ml Syringe) 25 gm IVPUSH Q15M PRN; Protocol PRN Reason: per Hypoglycemia Standing Ord. Glucose (Glucose Gel 15 Gm Gel..Gram.) 15 gm PO Q15M PRN; Protocol PRN Reason: per Hypoglycemia Standing Ord. Heparin Sodium (Porcine) (Heparin Sodium,Porcine 5,000 Unit/Ml Vial) 5,000 unit SUBCUT Q12H [facility] Last Admin: 04/03/24 03:25 Dose: Not Given Vancomycin HCl 1,000 mg/ (Sodium Chloride) 270 mls @ 270 mls/hr IV Q24H [facility] Piperacillin Sod/Tazobactam (Sod 4.5 gm/ Sodium Chloride) 100 mls @ 200 mls/hr IV Q6H [facility] Last Infusion: 04/03/24 06:12 Dose: Infused Documented By: CORNELIO Insulin Human Lispro (Insulin Lispro 100 Unit/Ml 3 Ml Vial) 0 unit SUBCUT QIDACHS [facility]; Protocol Last Admin: 04/03/24 07:42 Dose: Not Given Documented By: SETH Non-Admin Reason: No Insulin Coverage Magnesium Hydroxide (Milk Of Magnesia 30 Ml Oral.Susp) 30 ml PO DAILY PRN PRN Reason: Constipation Melatonin (Melatonin 3 Mg Tablet) 6 mg PO BEDTIME PRN PRN Reason: Insomnia Ondansetron HCl (Ondansetron Hcl 4 Mg/2 Ml Vial) 4 mg IVPUSH Q8H PRN PRN Reason: Nausea and Vomiting Pharmacy Consult (Consult Rx Vancomycin Dosing) 1 each MISCELLANE DAILY PRN PRN Reason: Consult order Sodium Chloride (0.9 % Sodium Chloride Flush 3 Ml Syringe) 3 ml IVFLUSH QSHIFT [facility] Last Admin: 04/03/24 08:00 Dose: 3 ml Documented By: SETH Labs 04/03/24 05:53 04/03/24 05:53 Labs: Laboratory Results - last 24 hr 04/02/24 04/02/24 04/02/24 10:34 10:37 10:39 MCV 85.1 MCH 26.8 L MCHC 31.5 RDW 14.4 Plt Count 452 H D MPV 9.5 Immature Gran % (Auto) 2.0 H Neut % (Auto) 84.1 H Lymph % (Auto) 8.3 L [place] % (Auto) 3.6 Eos % (Auto) 1.7 Baso % (Auto) 0.3 Lymph # (Auto) 1.1 L [place] # (Auto) 0.5 Eos # (Auto) 0.2 Baso # (Auto) 0.0 Abs Immat Gran (auto) 0.27 H Absolute Neuts (auto) 11.3 H Absolute Nucleated RBC 0.000 Nucleated RBC % (auto) 0.0 ESR 97 H PT 12.9 H INR 1.1 Anion Gap 14 Estim Creat Clear Calc 56.4 Estimated GFR 30 POC Glucose Random Glucose 116 H Estimat Average Glucose Hemoglobin A1c % Lactic Acid 0.9 Calcium 9.2 Magnesium 2.1 Total Bilirubin 0.3 Direct Bilirubin 0.2 AST 36 H ALT 9 Alkaline Phosphatase 65 C-Reactive Protein 18.70 H Total Protein 8.0 Albumin 3.2 L 04/02/24 04/02/24 04/03/24 17:14 21:20 05:53 MCV 84.0 MCH 27.3 MCHC 32.5 RDW 14.3 Plt Count 417 H MPV 9.7 Immature Gran % (Auto) 1.8 H Neut % (Auto) 76.6 H Lymph % (Auto) 12.3 L [place] % (Auto) 6.3 Eos % (Auto) 2.6 Baso % (Auto) 0.4 Lymph # (Auto) 1.4 [place] # (Auto) 0.7 Eos # (Auto) 0.3 Baso # (Auto) 0.0 Abs Immat Gran (auto) 0.20 H Absolute Neuts (auto) 8.7 H Absolute Nucleated RBC 0.000 Nucleated RBC % (auto) 0.0 ESR PT INR Anion Gap 13 Estim Creat Clear Calc 72.7 Estimated GFR 40 POC Glucose 104 139 H Random Glucose 106 Estimat Average Glucose 157 Hemoglobin A1c % 7.1 H Lactic Acid Calcium 8.8 Magnesium Total Bilirubin 0.3 Direct Bilirubin AST 25 ALT 6 Alkaline Phosphatase 80 C-Reactive Protein Total Protein 7.1 Albumin 2.8 L 04/03/24 07:37 MCV MCH MCHC RDW Plt Count MPV Immature Gran % (Auto) Neut % (Auto) Lymph % (Auto) [place] % (Auto) Eos % (Auto) Baso % (Auto) Lymph # (Auto) [place] # (Auto) Eos # (Auto) Baso # (Auto) Abs Immat Gran (auto) Absolute Neuts (auto) Absolute Nucleated RBC Nucleated RBC % (auto) ESR PT INR Anion Gap Estim Creat Clear Calc Estimated GFR POC Glucose 106 Random Glucose Estimat Average Glucose Hemoglobin A1c % Lactic Acid Calcium Magnesium Total Bilirubin Direct Bilirubin AST ALT Alkaline Phosphatase C-Reactive Protein Total Protein Albumin Microbiology Microbiology Results: Microbiology 04/02/24 10:56 Blood Culture - Preliminary Blood - Venous Prelim: GNR Gram Stain only Assessment and Plan (1) Diabetic foot infection: Status: Acute Plan 63 year old women with a hx of DM with chronic right foot ulcer Osteomyelitis from diabetic foot ulcer MRI showing changes of Charcot foot, possible early abscess to plantar midfoot and concomitant osteomyelitis Continue Vancomycin general surgery consult for debridement Wound care nurse consult> Dakins solution Obtain wound culture GNR bacteremia 1/2 Zosyn added Check wound culture, UA Follow up final culture VENKATESH on CKD 3, mild renally dose medications monitor BMP HTN elevated blood pressure continue home medications DM 2 ss, Lantus, ada diet Diabetic neuropathy no peripheral pain GERD PPI Mental health continue home medications Super morbid obesity. BMI 63.2 Discussed importance of weight management as this may be contributing to worsening of other comorbidities DVT prophylaxis with heparin full code Quality Stroke Does the patient have a stroke diagnosis?: No VTE Prior VTE?: No VTE Risk Level:: Medical - moderate - high VTE Device Contraindication: N/A - Device Ordered VTE Drug Contraindication: Treatment Not Indicated
[2024-04-03] MEDS: hydrALAZINE HCl 50 MG TABLET PO ×4 (10:35→20:54)
[2024-04-03] MEDS: vancomycin HCL 1,000 MG in 0.9 % Sodium Chloride 250 ML 270 MG IV (10:40)
[2024-04-03 11:15] LABS: Glucose, Whole Blood 167 mg/dL (60-115)
[2024-04-03] MEDS: Insulin Lispro 100 UNIT/ML 3 ML VIAL SUBCUT ×3 (11:37→20:55)
[2024-04-03 12:15] VITALS: BMI 29.4
--- NOTE | 2024-04-03 12:17 | MHC.CLN ---
NUTRITION CONSULT FOR POOR PO. VISITED PATIENT AT LUNCH TODAY. ATE 100% OF LUNCH MEAL. OBTAINED WEIGHT USING BED SCALE WITH WEIGHT=82.5 KG, BMI=29.4. NO ADDITIONAL NUTRITION INTERVENTIONS AT THIS TIME.
--- NOTE | 2024-04-03 14:06 | MHC.CM.PN ---
From [facility] on Bedhold. DX Osteo Patient requires assist with ADLs. She uses a walker to ambulate. HCP is on file. DP return to [facility] via BLS for LT IV ABX.
[2024-04-03 15:23] VITALS: BP 159/65; PULSE 78; RESP 20; TEMP 36.5; O2SAT 96
[2024-04-03 16:23] LABS: Glucose, Whole Blood 186 mg/dL (60-115)
[2024-04-03 18:49] VITALS: BP 138/61; PULSE 79; RESP 20; TEMP 36.6; O2SAT 95
[2024-04-03 20:51] LABS: Glucose, Whole Blood 213 mg/dL (60-115)
[2024-04-03 20:54] VITALS: BP 138/61
[2024-04-03] MEDS: Insulin Glargine,Hum.rec.anlog 100 UNIT/ML 10 ML VIAL 20 UNIT SUBCUT (20:55)
[2024-04-03 21:33] LABS: Appearance Urine Cloudy; Color Urine Yellow; Glucose Urine UA 100 mg/dL (Negative); Leukocyte Esterase Urine Large (3+) (Negative); Nitrite Urine Negative (Negative); PH 5.5 (5.0-9.0); Specific Gravity - Urine 1.025 (1.005-1.025); UMIC TRIGGER UACC YES; Urine Blood Negative (Negative); Urine Ketones Negative (Negative); Urine Protein 300 (3+) mg/dL (Neg-Trace)
[2024-04-03 21:42] LABS: Bacteria Urine None Seen (None Seen); Hyaline Casts Urine 0-2 /LPF (0-2); RBC Urine 0-2 /HPF (0-2); Squamous Epithelial Cell Urine 0-2 /HPF (0-2); UACC Culture Trigger YES; WBC Urine >50 /HPF (0-5)
[2024-04-03] MEDS: Sennosides 8.6 MG TABLET PO (23:00)
[2024-04-04 03:02] VITALS: BP 154/70; PULSE 69; RESP 16; TEMP 36.6; O2SAT 95
[2024-04-04] MEDS: Omeprazole 40 MG CAPSULE.DR PO (05:25)
[2024-04-04] MEDS: Piperacillin Sodium/Tazobactam 4.5 GM in 0.9 % Sodium Chloride 100 ML IV ×4 (05:25→23:29)
[2024-04-04 07:24] VITALS: BP 178/84; PULSE 70; RESP 16; TEMP 36.1; O2SAT 96
[2024-04-04 07:51] LABS: Glucose, Whole Blood 162 mg/dL (60-115)
[2024-04-04] MEDS: Insulin Lispro 100 UNIT/ML 3 ML VIAL SUBCUT ×4 (07:56→20:18)
[2024-04-04] MEDS: Sertraline HCL 50 MG TABLET PO (07:58)
[2024-04-04] MEDS: hydrALAZINE HCl 50 MG TABLET PO ×4 (07:58→20:18)
[2024-04-04] MEDS: Cholecalciferol (Vitamin D3) 25 MCG TABLET 50 MCG PO (07:58)
[2024-04-04] MEDS: Loratadine 10 MG TABLET PO (07:58)
[2024-04-04] MEDS: Losartan Potassium 50 MG TABLET 100 MG PO (07:58)
[2024-04-04] MEDS: 0.9 % Sodium Chloride Flush 3 ML SYRINGE IVFLUSH ×3 (07:59→20:19)
[2024-04-04] MEDS: Atorvastatin Calcium 20 MG TABLET PO (07:59)
[2024-04-04 08:18] LABS: Creatinine Clr Calc Pharmacy 46.8; Estimated Glomerular Filt Rate 40
[2024-04-04 09:51] LABS: Vancomycin Random 18.8 mcg/mL (15-20)
[2024-04-04 11:22] LABS: Glucose, Whole Blood 194 mg/dL (60-115)
[2024-04-04] MEDS: vancomycin HCL 1,000 MG in 0.9 % Sodium Chloride 250 ML 270 MG IV (11:53)
[2024-04-04 12:59] VITALS: BP 152/68
--- NOTE | 2024-04-04 13:28 | HO.PM.IMPN ---
Subjective Subjective Date of Service: 04/04/24 Interval History: seen and examined this morning follow up for right foot osteo, bacteremia No specific complaints today Review of Systems Review of Systems: Yes all other systems are reviewed and are negative Constitutional Constitutional: Denies chills and Denies fever(s) Cardiovascular Cardiovascular: Denies chest pain, Denies palpitations and Denies dyspnea Respiratory Respiratory: Denies cough and Denies dyspnea Gastrointestinal Gastrointestinal: Denies abdominal pain, Denies nausea and Denies vomiting Endocrine Endocrine: Denies palpitations Physical Exam Vital Signs: Vital Signs: Last Vital Signs Temp 96.9 F 04/04/24 07:24 Pulse 70 04/04/24 07:24 Resp 16 04/04/24 07:24 BP 152/68 H 04/04/24 12:59 Pulse Ox 96 04/04/24 07:24 O2 Del Method Room Air 04/04/24 07:24 BMI result Body Mass Index 29.4 Const: General: alert and awake Nutritional Appearance: overweight Orientation/consciousness: patient oriented x3 Resp: Effort & Inspection: normal respiratory effort, able to speak in complete sentences, no respiratory distress and no use of accessory muscles Cardio: Rate: regular rate GI: Inspection: No distended Palpation (GI): Soft to palpation and nontender Skin: Other: right foot wrapped in clean intact dressing Neuro: General: patient oriented x3, moves all extremities and CN's II-XI intact bilaterally Objective Data Active Medications Acetaminophen (Acetaminophen 325 Mg Tablet) 650 mg PO Q6H PRN PRN Reason: Pain, Mild 1-3,fever,headache Atorvastatin Calcium (Atorvastatin Calcium 20 Mg Tablet) 20 mg PO DAILY [facility] Last Admin: 04/04/24 07:59 Dose: 20 mg Documented By: XI Bisacodyl (Bisacodyl 10 Mg Supp.Rect) 10 mg [place] DAILY PRN PRN Reason: Constipation Calcium Carbonate (Calcium Carbonate 750 Mg Tab.Chew) 750 mg PO Q4H PRN PRN Reason: Heartburn Dextrose (Dextrose 50 % 25 Gm/50 Ml Syringe) 25 gm IVPUSH Q15M PRN; Protocol PRN Reason: per Hypoglycemia Standing Ord. Glucose (Glucose Gel 15 Gm Gel..Gram.) 15 gm PO Q15M PRN; Protocol PRN Reason: per Hypoglycemia Standing Ord. Guaifenesin (Guaifenesin 200 Mg/10 Ml 10 Ml Liquid) 10 ml PO Q4H PRN PRN Reason: Cough Heparin Sodium (Porcine) (Heparin Sodium,Porcine 5,000 Unit/Ml Vial) 5,000 unit SUBCUT Q12H [facility] Last Admin: 04/04/24 03:24 Dose: Not Given Documented By: CORNELIO Non-Admin Reason: allergic Hydralazine HCl (Hydralazine Hcl 50 Mg Tablet) 50 mg PO QID [facility]; Protocol Last Admin: 04/04/24 12:59 Dose: 50 mg Documented By: XI Vancomycin HCl 1,000 mg/ (Sodium Chloride) 270 mls @ 270 mls/hr IV Q24H [facility] Last Infusion: 04/04/24 13:09 Dose: Infused Documented By: XI Piperacillin Sod/Tazobactam (Sod 4.5 gm/ Sodium Chloride) 100 mls @ 200 mls/hr IV Q6H [facility] Last Infusion: 04/04/24 13:09 Dose: 200 mls/hr Documented By: XI Insulin Glargine (Insulin Glargine,Hum.Rec.Anlog 100 Unit/Ml 10 Ml Vial) 20 unit SUBCUT BEDTIME [facility] Last Admin: 04/03/24 20:55 Dose: 20 unit Documented By: CORNELIO Insulin Human Lispro (Insulin Lispro 100 Unit/Ml 3 Ml Vial) 0 unit SUBCUT QIDACHS [facility]; Protocol Last Admin: 04/04/24 11:52 Dose: 2 unit Documented By: XI Comments: Loratadine (Loratadine 10 Mg Tablet) 10 mg PO DAILY [facility] Last Admin: 04/04/24 07:58 Dose: 10 mg Documented By: XI Losartan Potassium (Losartan Potassium 50 Mg Tablet) 100 mg PO DAILY [facility]; Protocol Last Admin: 04/04/24 07:58 Dose: 100 mg Documented By: XI Magnesium Hydroxide (Milk Of Magnesia 30 Ml Oral.Susp) 30 ml PO DAILY PRN PRN Reason: Constipation Magnesium Hydroxide (Milk Of Magnesia 30 Ml Oral.Susp) 30 ml PO DAILY PRN PRN Reason: Constipation Melatonin (Melatonin 3 Mg Tablet) 6 mg PO BEDTIME PRN PRN Reason: Insomnia Omeprazole (Omeprazole 40 Mg Capsule.Dr) 40 mg PO DAILY@0630 [facility] Last Admin: 04/04/24 05:25 Dose: 40 mg Documented By: CORNELIO Ondansetron HCl (Ondansetron Hcl 4 Mg/2 Ml Vial) 4 mg IVPUSH Q8H PRN PRN Reason: Nausea and Vomiting Pharmacy Consult (Consult Rx Vancomycin Dosing) 1 each MISCELLANE DAILY PRN PRN Reason: Consult order Senna (Sennosides 8.6 Mg Tablet) 8.6 mg PO DAILY PRN PRN Reason: Constipation Last Admin: 04/03/24 23:00 Dose: 8.6 mg Documented By: CORNELIO Sertraline HCl (Sertraline Hcl 50 Mg Tablet) 50 mg PO DAILY [facility] Last Admin: 04/04/24 07:58 Dose: 50 mg Documented By: XI Sodium Biphosphate/Sodium Phosphate (Sodium Phosphate,Catron-Dibasic 133 Ml Enema) 118 ml [place] DAILY PRN PRN Reason: Constipation Sodium Chloride (0.9 % Sodium Chloride Flush 3 Ml Syringe) 3 ml IVFLUSH QSHIFT [facility] Last Admin: 04/04/24 07:59 Dose: 3 ml Documented By: XI Sodium Hypochlorite (Sodium Hypochlorite 0.5% 473 Ml Solution) 1 appl TOPICAL DAILY [facility] Last Admin: 04/03/24 10:31 Dose: Not Given Documented By: SETH Non-Admin Reason: Med Not Available Vitamin D (Cholecalciferol (Vitamin D3) 25 Mcg Tablet) 50 mcg PO DAILY [facility] Last Admin: 04/04/24 07:58 Dose: 50 mcg Documented By: XI Labs 04/03/24 05:53 04/04/24 06:30 Labs: Laboratory Results - last 24 hr 04/03/24 04/03/24 04/03/24 16:12 20:24 20:47 Estim Creat Clear Calc Estimated GFR POC Glucose 186 H 213 H Urine Color Yellow Urine Appearance Cloudy Urine pH 5.5 Ur Specific [place] 1.025 Urine Protein 300 (3+) H Urine Glucose (UA) 100 H Urine Ketones Negative Urine Blood Negative Urine Nitrite Negative Ur Leukocyte Esterase Large (3+) H Urine RBC 0-2 Urine WBC >50 H Ur Squamous Epith Cells 0-2 Urine Bacteria None Seen Hyaline Casts 0-2 Random Vancomycin 04/04/24 04/04/24 04/04/24 06:30 07:33 09:21 Estim Creat Clear Calc 46.8 Estimated GFR 40 POC Glucose 162 H Urine Color Urine Appearance Urine pH Ur Specific [place] Urine Protein Urine Glucose (UA) Urine Ketones Urine Blood Urine Nitrite Ur Leukocyte Esterase Urine RBC Urine WBC Ur Squamous Epith Cells Urine Bacteria Hyaline Casts Random Vancomycin 18.8 04/04/24 11:14 Estim Creat Clear Calc Estimated GFR POC Glucose 194 H Urine Color Urine Appearance Urine pH Ur Specific [place] Urine Protein Urine Glucose (UA) Urine Ketones Urine Blood Urine Nitrite Ur Leukocyte Esterase Urine RBC Urine WBC Ur Squamous Epith Cells Urine Bacteria Hyaline Casts Random Vancomycin Microbiology Microbiology Results: Microbiology 04/02/24 10:56 Blood Culture - Preliminary Blood - Venous Proteus species 04/03/24 Unknown Urine Culture - Preliminary Urine clean catch - Clean Catch Midstream Culture too young to evaluate. 04/02/24 10:34 Blood Culture - Preliminary Blood - Venous Prelim: GPC Gram Stain only Assessment and Plan (1) Diabetic foot infection: Status: Acute Plan This is a 63 year old women with a hx of DM with chronic right foot ulcer, completed 6 weeks of IV kefzol in January admitted for worsening foot infection and osteomyelitis Osteomyelitis from diabetic foot ulcer MRI showing changes of Charcot foot, possible early abscess to plantar midfoot and concomitant osteomyelitis Continue IV Vancomycin/zosyn general surgery consult pending Wound care nurse consult> Dakins solution We will need 6 weeks of antibiotics upon discharge- Guevara ordered, blood cultures need to be negative before placement polymicrobial bacteremia 1/2 growing GPC 1/2 growing proteus sp continue vanc/zosyn as above ID following Follow up final culture results will need echo if GPC real pathogen repeat blood cultures ordered VENKATESH on CKD 3 back to baseline monitor BMP HTN Continue losartan, hydralazine DM 2 ss, Lantus, ada diet GERD PPI Mental health continue zoloft DVT prophylaxis with heparin full code will need PT eval prior to discharge Patient requires ongoing inpatient stay for management of osteomyelitis requiring IV antibiotics, infectious disease consultation and surgical evaluation Quality Stroke Does the patient have a stroke diagnosis?: No VTE Prior VTE?: No VTE Risk Level:: Medical - moderate - high VTE Device Contraindication: N/A - Device Ordered VTE Drug Contraindication: Treatment Not Indicated
--- NOTE | 2024-04-04 13:45 | W.PM.IDCN ---
History of Present Illness Data of Consult Service Date: 04/04/24 Requesting physician: Keri Vicente Primary Care Provider: Gilson Davidson MD [facility] Reason for consult: right foot wound She is well known to me for chronic right foot OM. She has Charcot foot. Most recently I saw her January 01 and she was discharged with IV Kefzol reported for six weeks and said ended February 11. Now she is in Rehab and one week ago says had eschar plantar right foot removed at [facility]. She says she has some foul odor and drainage. Blood cultures 04/02 when presented to ER show proteus sensis pending,urine no bacteria so far. She is not working Review of Systems Review of Systems: Yes all other systems are reviewed and are negative PMFSH Past Medical History Medical History CKD (chronic kidney disease) Vertigo Diabetic foot ulcer associated with type 2 diabetes mellitus Cellulitis PAD (peripheral artery disease) Non-toxic multinodular goiter Dyslipidemia 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 Diabetic neuropathy associated with type 2 diabetes mellitus Diabetic retinopathy associated with type 2 diabetes mellitus Diabetic nephropathy associated with type 2 diabetes mellitus care home (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 insulin Diabetes type 2, uncontrolled Family History Family History Father COPD (chronic obstructive pulmonary disease) Diabetes Mother Heart disease Family history: reviewed and not pertinent Surgical History Surgical History S/P thyroid biopsy Hx of cataract extraction Hx of LASIK Hx of eye surgery Hx of foot surgery Social History Social History Household Members: None Housing: Group Home Are you a primary associate director career services to a significant other at home: No Do you presently have visiting nurse or other home services: Yes Alcohol intake: current Alcohol intake frequency: does not drink Patient Tobacco Use Status: Former Tobacco user Years Smoked: 20 years e-Cigarette/Vaping Use: Never Used Advance Directives Date on File: 12/04/23 service: No Current occupational status: employed Meds Allergies Allergy/AdvReac Type Severity Reaction Status Date / Time amlodipine [From Norvasc] Allergy Mild Swelling Verified 04/02/24 09:17 Penicillins Allergy Mild Rash Verified 04/02/24 09:17 erythromycin base Allergy Unknown Unknown Verified 04/02/24 09:17 enoxaparin [From Lovenox] Allergy Vomiting Verified 04/02/24 09:17 heparin Allergy Vomiting Verified 04/02/24 09:17 clindamycin [CLINDAMYCIN] AdvReac Intermediate Diarrhea Verified 04/02/24 09:17 NephrAmine Allergy Unknown Swelling Uncoded 02/23/24 10:06 Active Medications: Current Medications Acetaminophen (Acetaminophen 325 Mg Tablet) 650 mg PO Q6H PRN PRN Reason: Pain, Mild 1-3,fever,headache Atorvastatin Calcium (Atorvastatin Calcium 20 Mg Tablet) 20 mg PO DAILY [facility] Last Admin: 04/04/24 07:59 Dose: 20 mg Bisacodyl (Bisacodyl 10 Mg Supp.Rect) 10 mg [place] DAILY PRN PRN Reason: Constipation Calcium Carbonate (Calcium Carbonate 750 Mg Tab.Chew) 750 mg PO Q4H PRN PRN Reason: Heartburn Dextrose (Dextrose 50 % 25 Gm/50 Ml Syringe) 25 gm IVPUSH Q15M PRN; Protocol PRN Reason: per Hypoglycemia Standing Ord. Glucose (Glucose Gel 15 Gm Gel..Gram.) 15 gm PO Q15M PRN; Protocol PRN Reason: per Hypoglycemia Standing Ord. Guaifenesin (Guaifenesin 200 Mg/10 Ml 10 Ml Liquid) 10 ml PO Q4H PRN PRN Reason: Cough Heparin Sodium (Porcine) (Heparin Sodium,Porcine 5,000 Unit/Ml Vial) 5,000 unit SUBCUT Q12H [facility] Last Admin: 04/04/24 03:24 Dose: Not Given Hydralazine HCl (Hydralazine Hcl 50 Mg Tablet) 50 mg PO QID [facility]; Protocol Last Admin: 04/04/24 12:59 Dose: 50 mg Vancomycin HCl 1,000 mg/ (Sodium Chloride) 270 mls @ 270 mls/hr IV Q24H [facility] Last Infusion: 04/04/24 13:09 Dose: Infused Piperacillin Sod/Tazobactam (Sod 4.5 gm/ Sodium Chloride) 100 mls @ 200 mls/hr IV Q6H [facility] Last Infusion: 04/04/24 13:09 Dose: 200 mls/hr Insulin Glargine (Insulin Glargine,Hum.Rec.Anlog 100 Unit/Ml 10 Ml Vial) 20 unit SUBCUT BEDTIME [facility] Last Admin: 04/03/24 20:55 Dose: 20 unit Insulin Human Lispro (Insulin Lispro 100 Unit/Ml 3 Ml Vial) 0 unit SUBCUT QIDACHS [facility]; Protocol Last Admin: 04/04/24 11:52 Dose: 2 unit Loratadine (Loratadine 10 Mg Tablet) 10 mg PO DAILY [facility] Last Admin: 04/04/24 07:58 Dose: 10 mg Losartan Potassium (Losartan Potassium 50 Mg Tablet) 100 mg PO DAILY [facility]; Protocol Last Admin: 04/04/24 07:58 Dose: 100 mg Magnesium Hydroxide (Milk Of Magnesia 30 Ml Oral.Susp) 30 ml PO DAILY PRN PRN Reason: Constipation Magnesium Hydroxide (Milk Of Magnesia 30 Ml Oral.Susp) 30 ml PO DAILY PRN PRN Reason: Constipation Melatonin (Melatonin 3 Mg Tablet) 6 mg PO BEDTIME PRN PRN Reason: Insomnia Omeprazole (Omeprazole 40 Mg Capsule.Dr) 40 mg PO DAILY@0630 [facility] Last Admin: 04/04/24 05:25 Dose: 40 mg Ondansetron HCl (Ondansetron Hcl 4 Mg/2 Ml Vial) 4 mg IVPUSH Q8H PRN PRN Reason: Nausea and Vomiting Pharmacy Consult (Consult Rx Vancomycin Dosing) 1 each MISCELLANE DAILY PRN PRN Reason: Consult order Senna (Sennosides 8.6 Mg Tablet) 8.6 mg PO DAILY PRN PRN Reason: Constipation Last Admin: 04/03/24 23:00 Dose: 8.6 mg Sertraline HCl (Sertraline Hcl 50 Mg Tablet) 50 mg PO DAILY [facility] Last Admin: 04/04/24 07:58 Dose: 50 mg Sodium Biphosphate/Sodium Phosphate (Sodium Phosphate,Stone-Dibasic 133 Ml Enema) 118 ml [place] DAILY PRN PRN Reason: Constipation Sodium Chloride (0.9 % Sodium Chloride Flush 3 Ml Syringe) 3 ml IVFLUSH QSHIFT [facility] Last Admin: 04/04/24 07:59 Dose: 3 ml Sodium Hypochlorite (Sodium Hypochlorite 0.5% 473 Ml Solution) 1 appl TOPICAL DAILY [facility] Last Admin: 04/03/24 10:31 Dose: Not Given Vitamin D (Cholecalciferol (Vitamin D3) 25 Mcg Tablet) 50 mcg PO DAILY [facility] Last Admin: 04/04/24 07:58 Dose: 50 mcg Home Medications ?Medication ?Instructions ?Recorded ?Confirmed ?Last Taken ?Type ferrous sulfate 325 mg (65 mg 325 mg PO DAILY 08/07/23 04/02/24 1 Month Ago History iron) tablet,delayed release ~11/30/23 rosuvastatin 5 mg tablet 5 mg PO DAILY 08/07/23 04/02/24 12/31/23 09:00 History sertraline 50 mg tablet 50 mg PO DAILY 08/07/23 04/02/24 12/31/23 09:00 History cholecalciferol (vitamin D3) 50 50 mcg PO DAILY 11/28/23 04/02/24 12/31/23 09:00 History mcg (2,000 unit) capsule (Vitamin D3) loratadine 10 mg tablet 10 mg PO DAILY 11/28/23 04/02/24 12/31/23 09:00 History sennosides 8.6 mg tablet (senna) 8.6 mg PO DAILY PRN Constipation 12/31/23 04/02/24 Unknown History omeprazole 40 mg capsule,delayed 40 mg PO DAILY@0630 02/23/24 04/02/24 Unknown History release acetaminophen 325 mg tablet 650 mg PO Q4H PRN Fever Or Pain 04/02/24 04/02/24 Unknown History acetaminophen 650 mg rectal 650 mg [place] Q4H PRN Fever Or Pain 04/02/24 04/02/24 Unknown History suppository bisacodyl 10 mg rectal suppository 10 mg [place] DAILY PRN Constipation 04/02/24 04/02/24 Unknown History glucagon HCl 1 mg solution for 1 mg subcut Q20M PRN low blood 04/02/24 04/02/24 Unknown History injection (Glucagon (HCl) sugar Emergency Kit) guaifenesin 100 mg/5 mL oral liquid 200 mg PO Q4H PRN Cough 04/02/24 04/02/24 Unknown History hydralazine 25 mg tablet 50 mg PO Q6H 04/02/24 04/02/24 Unknown History losartan 50 mg tablet 100 mg PO DAILY 04/02/24 04/02/24 Unknown History magnesium hydroxide 400 mg/5 mL 30 ml PO DAILY PRN Constipation 04/02/24 04/02/24 Unknown History oral suspension (Milk of Magnesia) naloxone 4 mg/actuation nasal 4 mg intranasal Q3M PRN Opioid 04/02/24 04/02/24 Unknown History spray (Narcan) Reversal ondansetron HCl 4 mg tablet 4 mg PO Q6H PRN Nausea And Vomiting 04/02/24 04/02/24 Unknown History sodium phosphates 19 gram-7 118 ml [place] DAILY PRN Constipation 04/02/24 04/02/24 Unknown History gram/118 mL enema (Fleet Enema) Physical Exam Vital Signs: Vital Signs: Last Vital Signs Temp 96.9 F 04/04/24 07:24 Pulse 70 04/04/24 07:24 Resp 16 04/04/24 07:24 BP 152/68 H 04/04/24 12:59 Pulse Ox 96 04/04/24 07:24 O2 Del Method Room Air 04/04/24 07:24 BMI result Body Mass Index 29.4 Const: General: cooperative HEENT: Head: Yes normal to inspection Face and sinus: Yes normal facial exam Mouth: Normal oral and palatal mucosa present Teeth and gingiva: dentition normal Eyes: General: appearance normal, both eyes and all related structures Pupils: Equal, round and reactive pupils present Resp: Effort & Inspection: normal respiratory effort Cardio: Rate: regular rate Rhythm: regular rhythm GI: Palpation (GI): Soft to palpation and nontender : General: Yes no CVA tenderness Back/Spine/Pelvis: Back: no CVA tenderness Skin: General skin exam: no rashes or lesions noted Neuro: Other: neuroapathy legs Cranial nerves: Yes Equal, round and reactive pupils present Extrem: General: Yes normal to inspection Psych: Appearance: grossly normal Results Labs 04/03/24 05:53 04/04/24 06:30 Labs: BMP 04/04/24 06:30 Creatinine 1.35 Urine 04/03/24 Range/Units 20:24 Urine Color Yellow Urine Appearance Cloudy Urine pH 5.5 (5.0-9.0) Ur Specific [place] 1.025 (1.005-1.025) Urine Protein 300 (3+) H (Neg-Trace) mg/dL Urine Glucose (UA) 100 H (Negative) mg/dL Microbiology Microbiology Results: Microbiology 04/02/24 10:56 Blood - Venous Blood Culture - Preliminary Proteus species 04/03/24 Unknown Urine clean catch - Clean Catch Midstream Urine Culture - Preliminary Culture too young to evaluate. 04/02/24 10:34 Blood - Venous Blood Culture - Preliminary Prelim: GPC Gram Stain only Assessment and Plan (1) Diabetic foot infection: Status: Acute Plan Diabetic foot infection/OM chronic involving plantar metatarsals on MRI and possible early abscess. She has proteus in blood,awaiting sensitivities on 04/02 1 gram positive cocci blood possible contaminant Proteus likely from OM,less likely urine source Due to probable bone involvement would continue piperacillin/tazobactam cover proteus until sensis back. Would also continue Vancomycin until blood culture results back and stop Vancomycin if coagulase negative staph in blood. She will need Guevara line and six weeks IV antibiotics for suppression. Surgery to follow. The OM is chronic and not curable but hopefully suppress with IV antibiotics.
--- NOTE | 2024-04-04 14:01 | PM.CNGS ---
History of Present Illness Consult details Consult date: 04/04/24 Requesting physician: Chary Melara Narrative: 63-year-old female with a past medical history CKD, diabetes, diabetic foot wound, HLD, HTN, right foot osteomyelitis, PAD, who initially presented to the ED due to malodorous drainage right foot. She has had a complex history of problems with the right foot and used to have a hardware here with chronic infections requiring multiple admissions in the hospital in the distant past for this. Her hardware was subsequently removed in [place] in 2019. She has had this open wound in the area. [facility] fractured her hip and has been in rehab since. She denies fever, chills, nausea, vomiting, diarrhea. She had mild leukocytosis of 13.5. in the ED. Work up included Venous Doppler ultrasound in the ER was negative for DVT, foot x-ray shows large soft tissue ulceration to the plantar posterior midfoot, MRI showed possible early abscess to plantar midfoot and concomitant osteomyelitis. She is bacteremic. She was admitted to the hospitalist service for IV abx and further treatment of the right foot infection, osteomyelitis, bacteremia. General surgery was consulted. Review of Systems Review of Systems: Yes all other systems are reviewed and are negative PMFSH Past Medical History Medical History CKD (chronic kidney disease) Vertigo Diabetic foot ulcer associated with type 2 diabetes mellitus Cellulitis PAD (peripheral artery disease) Non-toxic multinodular goiter Dyslipidemia 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 Diabetic neuropathy associated with type 2 diabetes mellitus Diabetic retinopathy associated with type 2 diabetes mellitus Diabetic nephropathy associated with type 2 diabetes mellitus long-term (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 insulin Diabetes type 2, uncontrolled Family History Family History Father COPD (chronic obstructive pulmonary disease) Diabetes Mother Heart disease Family history: reviewed and not pertinent Surgical History Surgical History S/P thyroid biopsy Hx of cataract extraction Hx of LASIK Hx of eye surgery Hx of foot surgery Social History Social History Household Members: None Housing: Long Term Are you a primary daycare manager to a significant other at home: No Do you presently have visiting nurse or other home services: Yes Alcohol intake: current Alcohol intake frequency: does not drink Patient Tobacco Use Status: Former Tobacco user Years Smoked: 20 years e-Cigarette/Vaping Use: Never Used Advance Directives Date on File: 12/04/23 service: No Current occupational status: employed Meds Allergies Allergy/AdvReac Type Severity Reaction Status Date / Time amlodipine [From Norvasc] Allergy Mild Swelling Verified 04/02/24 09:17 Penicillins Allergy Mild Rash Verified 04/02/24 09:17 erythromycin base Allergy Unknown Unknown Verified 04/02/24 09:17 enoxaparin [From Lovenox] Allergy Vomiting Verified 04/02/24 09:17 heparin Allergy Vomiting Verified 04/02/24 09:17 clindamycin [CLINDAMYCIN] AdvReac Intermediate Diarrhea Verified 04/02/24 09:17 NephrAmine Allergy Unknown Swelling Uncoded 02/23/24 10:06 Active Medications: Current Medications Acetaminophen (Acetaminophen 325 Mg Tablet) 650 mg PO Q6H PRN PRN Reason: Pain, Mild 1-3,fever,headache Atorvastatin Calcium (Atorvastatin Calcium 20 Mg Tablet) 20 mg PO DAILY [facility] Last Admin: 04/04/24 07:59 Dose: 20 mg Bisacodyl (Bisacodyl 10 Mg Supp.Rect) 10 mg NM DAILY PRN PRN Reason: Constipation Calcium Carbonate (Calcium Carbonate 750 Mg Tab.Chew) 750 mg PO Q4H PRN PRN Reason: Heartburn Dextrose (Dextrose 50 % 25 Gm/50 Ml Syringe) 25 gm IVPUSH Q15M PRN; Protocol PRN Reason: per Hypoglycemia Standing Ord. Ferrous Sulfate (Ferrous Sulfate 324 Mg Tablet.Dr) 324 mg PO DAILY [facility] Glucose (Glucose Gel 15 Gm Gel..Gram.) 15 gm PO Q15M PRN; Protocol PRN Reason: per Hypoglycemia Standing Ord. Guaifenesin (Guaifenesin 200 Mg/10 Ml 10 Ml Liquid) 10 ml PO Q4H PRN PRN Reason: Cough Heparin Sodium (Porcine) (Heparin Sodium,Porcine 5,000 Unit/Ml Vial) 5,000 unit SUBCUT Q12H [facility] Last Admin: 04/04/24 03:24 Dose: Not Given Hydralazine HCl (Hydralazine Hcl 50 Mg Tablet) 50 mg PO QID [facility]; Protocol Last Admin: 04/04/24 12:59 Dose: 50 mg Vancomycin HCl 1,000 mg/ (Sodium Chloride) 270 mls @ 270 mls/hr IV Q24H [facility] Last Infusion: 04/04/24 13:09 Dose: Infused Piperacillin Sod/Tazobactam (Sod 4.5 gm/ Sodium Chloride) 100 mls @ 200 mls/hr IV Q6H [facility] Last Infusion: 04/04/24 13:09 Dose: 200 mls/hr Insulin Glargine (Insulin Glargine,Hum.Rec.Anlog 100 Unit/Ml 10 Ml Vial) 20 unit SUBCUT BEDTIME [facility] Last Admin: 04/03/24 20:55 Dose: 20 unit Insulin Human Lispro (Insulin Lispro 100 Unit/Ml 3 Ml Vial) 0 unit SUBCUT QIDACHS [facility]; Protocol Last Admin: 04/04/24 11:52 Dose: 2 unit Loratadine (Loratadine 10 Mg Tablet) 10 mg PO DAILY [facility] Last Admin: 04/04/24 07:58 Dose: 10 mg Losartan Potassium (Losartan Potassium 50 Mg Tablet) 100 mg PO DAILY [facility]; Protocol Last Admin: 04/04/24 07:58 Dose: 100 mg Magnesium Hydroxide (Milk Of Magnesia 30 Ml Oral.Susp) 30 ml PO DAILY PRN PRN Reason: Constipation Magnesium Hydroxide (Milk Of Magnesia 30 Ml Oral.Susp) 30 ml PO DAILY PRN PRN Reason: Constipation Melatonin (Melatonin 3 Mg Tablet) 6 mg PO BEDTIME PRN PRN Reason: Insomnia Omeprazole (Omeprazole 40 Mg Capsule.Dr) 40 mg PO DAILY@0630 [facility] Last Admin: 04/04/24 05:25 Dose: 40 mg Ondansetron HCl (Ondansetron Hcl 4 Mg/2 Ml Vial) 4 mg IVPUSH Q8H PRN PRN Reason: Nausea and Vomiting Pharmacy Consult (Consult Rx Vancomycin Dosing) 1 each MISCELLANE DAILY PRN PRN Reason: Consult order Senna (Sennosides 8.6 Mg Tablet) 8.6 mg PO DAILY PRN PRN Reason: Constipation Last Admin: 04/03/24 23:00 Dose: 8.6 mg Sertraline HCl (Sertraline Hcl 50 Mg Tablet) 50 mg PO DAILY [facility] Last Admin: 04/04/24 07:58 Dose: 50 mg Sodium Biphosphate/Sodium Phosphate (Sodium Phosphate,[place]-Dibasic 133 Ml Enema) 118 ml NM DAILY PRN PRN Reason: Constipation Sodium Chloride (0.9 % Sodium Chloride Flush 3 Ml Syringe) 3 ml IVFLUSH QSHIFT [facility] Last Admin: 04/04/24 07:59 Dose: 3 ml Sodium Hypochlorite (Sodium Hypochlorite 0.5% 473 Ml Solution) 1 appl TOPICAL DAILY [facility] Last Admin: 04/03/24 10:31 Dose: Not Given Vitamin D (Cholecalciferol (Vitamin D3) 25 Mcg Tablet) 50 mcg PO DAILY [facility] Last Admin: 04/04/24 07:58 Dose: 50 mcg Home Medications ?Medication ?Instructions ?Recorded ?Confirmed ?Last Taken ?Type ferrous sulfate 325 mg (65 mg 325 mg PO DAILY 08/07/23 04/02/24 1 Month Ago History iron) tablet,delayed release ~11/30/23 rosuvastatin 5 mg tablet 5 mg PO DAILY 08/07/23 04/02/24 12/31/23 09:00 History sertraline 50 mg tablet 50 mg PO DAILY 08/07/23 04/02/24 12/31/23 09:00 History cholecalciferol (vitamin D3) 50 50 mcg PO DAILY 11/28/23 04/02/24 12/31/23 09:00 History mcg (2,000 unit) capsule (Vitamin D3) loratadine 10 mg tablet 10 mg PO DAILY 11/28/23 04/02/24 12/31/23 09:00 History sennosides 8.6 mg tablet (senna) 8.6 mg PO DAILY PRN Constipation 12/31/23 04/02/24 Unknown History omeprazole 40 mg capsule,delayed 40 mg PO DAILY@0630 02/23/24 04/02/24 Unknown History release acetaminophen 325 mg tablet 650 mg PO Q4H PRN Fever Or Pain 04/02/24 04/02/24 Unknown History acetaminophen 650 mg rectal 650 mg NM Q4H PRN Fever Or Pain 04/02/24 04/02/24 Unknown History suppository bisacodyl 10 mg rectal suppository 10 mg NM DAILY PRN Constipation 04/02/24 04/02/24 Unknown History glucagon HCl 1 mg solution for 1 mg subcut Q20M PRN low blood 04/02/24 04/02/24 Unknown History injection (Glucagon (HCl) sugar Emergency Kit) guaifenesin 100 mg/5 mL oral liquid 200 mg PO Q4H PRN Cough 04/02/24 04/02/24 Unknown History hydralazine 25 mg tablet 50 mg PO Q6H 04/02/24 04/02/24 Unknown History losartan 50 mg tablet 100 mg PO DAILY 04/02/24 04/02/24 Unknown History magnesium hydroxide 400 mg/5 mL 30 ml PO DAILY PRN Constipation 04/02/24 04/02/24 Unknown History oral suspension (Milk of Magnesia) naloxone 4 mg/actuation nasal 4 mg intranasal Q3M PRN Opioid 04/02/24 04/02/24 Unknown History spray (Narcan) Reversal ondansetron HCl 4 mg tablet 4 mg PO Q6H PRN Nausea And Vomiting 04/02/24 04/02/24 Unknown History sodium phosphates 19 gram-7 118 ml NM DAILY PRN Constipation 04/02/24 04/02/24 Unknown History gram/118 mL enema (Fleet Enema) Physical Exam Vital Signs: Vital Signs: Last Vital Signs Temp 96.9 F 04/04/24 07:24 Pulse 70 04/04/24 07:24 Resp 16 04/04/24 07:24 BP 152/68 H 04/04/24 12:59 Pulse Ox 96 04/04/24 07:24 O2 Del Method Room Air 04/04/24 07:24 BMI result Body Mass Index 29.4 Const: General: comfortable, no acute distress and alert Resp: Effort & Inspection: normal respiratory effort Extrem: Other: right foot with charcot deformity, mild edema of plantar aspect surrounding open ulcer without palpable collection, erythema improved and only small amount laterally remains, thick surrounding callus, scant thin purulent appearing drainage, ulcer palpated which tunnels superiorly, laterally and inferiorly Results Labs 04/03/24 05:53 04/04/24 06:30 Labs: Abnormal lab results 04/03/24 04/03/24 04/03/24 Range/Units 16:12 20:24 20:47 POC Glucose 186 H 213 H (60-115) mg/dL Urine Protein 300 (3+) H (Neg-Trace) mg/dL Urine Glucose (UA) 100 H (Negative) mg/dL Ur Leukocyte Esterase Large (3+) H (Negative) Urine WBC >50 H (0-5) /HPF 04/04/24 04/04/24 Range/Units 07:33 11:14 POC Glucose 162 H 194 H (60-115) mg/dL Urine Protein (Neg-Trace) mg/dL Urine Glucose (UA) (Negative) mg/dL Ur Leukocyte Esterase (Negative) Urine WBC (0-5) /HPF BMP 04/04/24 06:30 Creatinine 1.35 Urine 04/03/24 Range/Units 20:24 Urine Color Yellow Urine Appearance Cloudy Urine pH 5.5 (5.0-9.0) Ur Specific [place] 1.025 (1.005-1.025) Urine Protein 300 (3+) H (Neg-Trace) mg/dL Urine Glucose (UA) 100 H (Negative) mg/dL All other labs normal. Assessment and Plan (1) Diabetic foot infection: Status: Acute Plan 63-year-old female with a past medical history CKD, diabetes, diabetic foot wound, HLD, HTN, hx of right foot osteomyelitis, PAD admitted for right foot cellulitis, osteomyelitis and bacteremia. MRI of right foot questioned possible abscess but this is not appreciated on exam, ulcer with thin purulent drainage, surrounding cellulitic changes overall improved compared to admission. Cont IV abx, right foot elevation and daily wound care. Agree with parking analyst recs of dakins soaked fluff packed into ulcer followed by fluffs, kerlix wrap. Change daily. Procedures Date of Service Date of Service: 04/04/24
[2024-04-04 15:31] VITALS: BP 147/74; PULSE 79; RESP 18; TEMP 36.3; O2SAT 93
[2024-04-04 16:04] LABS: Glucose, Whole Blood 184 mg/dL (60-115)
[2024-04-04 17:20] VITALS: BP 173/79
[2024-04-04] MEDS: Sennosides 8.6 MG TABLET PO (17:20)
[2024-04-04 19:08] VITALS: BP 155/67; PULSE 75; RESP 18; TEMP 36.2; O2SAT 93
[2024-04-04 20:10] LABS: Glucose, Whole Blood 178 mg/dL (60-115)
[2024-04-04] MEDS: Insulin Glargine,Hum.rec.anlog 100 UNIT/ML 10 ML VIAL 20 UNIT SUBCUT (20:18)
[2024-04-05] VITALS (7 sets, daily range): BP systolic 141–184; BP diastolic 71–83; PULSE 66–79; RESP 16–18; TEMP 36.1–36.3; O2SAT 93–97
[2024-04-05] MEDS: Omeprazole 40 MG CAPSULE.DR PO (05:25)
[2024-04-05] MEDS: Piperacillin Sodium/Tazobactam 4.5 GM in 0.9 % Sodium Chloride 100 ML IV ×4 (05:25→23:15)
[2024-04-05 06:11] LABS: Creatinine Clr Calc Pharmacy 47.1; Estimated Glomerular Filt Rate 40
[2024-04-05 08:11] LABS: Glucose, Whole Blood 106 mg/dL (60-115)
[2024-04-05] MEDS: Losartan Potassium 50 MG TABLET 100 MG PO (08:42)
[2024-04-05] MEDS: Ferrous Sulfate 324 MG TABLET.DR PO (08:42)
[2024-04-05] MEDS: Cholecalciferol (Vitamin D3) 25 MCG TABLET 50 MCG PO (08:43)
[2024-04-05] MEDS: hydrALAZINE HCl 50 MG TABLET PO ×4 (08:43→21:42)
[2024-04-05] MEDS: Sertraline HCL 50 MG TABLET PO (08:43)
[2024-04-05] MEDS: Atorvastatin Calcium 20 MG TABLET PO (08:43)
[2024-04-05] MEDS: Loratadine 10 MG TABLET PO (08:43)
[2024-04-05] MEDS: 0.9 % Sodium Chloride Flush 3 ML SYRINGE IVFLUSH ×3 (08:45→23:15)
[2024-04-05 09:33] LABS: Vancomycin Random 19.4 mcg/mL (15-20)
[2024-04-05] MEDS: vancomycin HCL 1,000 MG in 0.9 % Sodium Chloride 250 ML 270 MG IV (10:38)
[2024-04-05 11:20] LABS: Glucose, Whole Blood 165 mg/dL (60-115)
--- NOTE | 2024-04-05 12:12 | MHC.CM.PN ---
Per MD rounds, patient not medically cleared and not expected to dc over the weekend. CM will continue to follow.
[2024-04-05] MEDS: Insulin Lispro 100 UNIT/ML 3 ML VIAL SUBCUT ×2 (12:18→17:07)
[2024-04-05] MEDS: Sodium Hypochlorite 0.125% 473 ML SOLUTION 1 APPL TOPICAL (12:19)
[2024-04-05 16:09] LABS: Glucose, Whole Blood 153 mg/dL (60-115)
--- NOTE | 2024-04-05 16:32 | P.PNIM_ITS ---
Subjective Subjective Date of Service: 04/05/24 Interval History: seen and examined this morning follow up for right foot infection no overnight events no fever or chills Review of Systems Review of Systems: Yes all other systems are reviewed and are negative Constitutional Constitutional: Denies chills and Denies fever(s) Physical Exam 2 Vital Signs: Vital Signs: Last Vital Signs Temp 97.2 F 04/05/24 15:12 Pulse 72 04/05/24 15:12 Resp 18 04/05/24 15:12 BP 152/77 H 04/05/24 15:12 Pulse Ox 93 04/05/24 15:12 O2 Del Method Room Air 04/05/24 15:12 BMI result Body Mass Index 29.4 Const: General: alert and awake Nutritional Appearance: overweight O rientation/consciousness: patient oriented x3 Resp: Effort & Inspection: normal respiratory effort, able to speak in complete sentences, no respiratory distress and no use of accessory muscles Cardio: Rate: regular rate GI: Inspection: No distended Palpation (GI): Soft to palpation and nontender Skin: Other: right foot wrapped in clean intact dressing Neuro: General: patient oriented x3, moves all extremities and CN's II-XI intact bilaterally Objective Data Active Medications Acetaminophen (Acetaminophen 325 Mg Tablet) 650 mg PO Q6H PRN PRN Reason: Pain, Mild 1-3,fever,headache Atorvastatin Calcium (Atorvastatin Calcium 20 Mg Tablet) 20 mg PO DAILY [facility] Last Admin: 04/05/24 08:43 Dose: 20 mg Documented By: SETH Bisacodyl (Bisacodyl 10 Mg Supp.Rect) 10 mg HI DAILY PRN PRN Reason: Constipation Calcium Carbonate (Calcium Carbonate 750 Mg Tab.Chew) 750 mg PO Q4H PRN PRN Reason: Heartburn Dextrose (Dextrose 50 % 25 Gm/50 Ml Syringe) 25 gm IVPUSH Q15M PRN; Protocol PRN Reason: per Hypoglycemia Standing Ord. Ferrous Sulfate (Ferrous Sulfate 324 Mg Tablet.) 324 mg PO DAILY [facility] Last Admin: 04/05/24 08:42 Dose: 324 mg Documented By: SETH Glucose (Glucose Gel 15 Gm Gel..Gram.) 15 gm PO Q15M PRN; Protocol PRN Reason: per Hypoglycemia Standing Ord. Guaifenesin (Guaifenesin 200 Mg/10 Ml 10 Ml Liquid) 10 ml PO Q4H PRN PRN Reason: Cough Heparin Sodium (Porcine) (Heparin Sodium,Porcine 5,000 Unit/Ml Vial) 5,000 unit SUBCUT Q12H [facility] Last Admin: 04/05/24 03:46 Dose: Not Given Documented By: LUIS ANGEL Non-Admin Reason: Patient Refused Hydralazine HCl (Hydralazine Hcl 50 Mg Tablet) 50 mg PO QID [facility]; Protocol Last Admin: 04/05/24 13:25 Dose: 50 mg Documented By: ELO Vancomycin HCl 1,000 mg/ (Sodium Chloride) 270 mls @ 270 mls/hr IV Q24H [facility] Last Infusion: 04/05/24 12:21 Dose: Infused Documented By: ELO Piperacillin Sod/Tazobactam (Sod 4.5 gm/ Sodium Chloride) 100 mls @ 200 mls/hr IV Q6H [facility] Last Infusion: 04/05/24 13:20 Dose: Infused Documented By: ELO Insulin Glargine (Insulin Glargine,Hum.Rec.Anlog 100 Unit/Ml 10 Ml Vial) 20 unit SUBCUT BEDTIME [facility] Last Admin: 04/04/24 20:18 Dose: 20 unit Documented By: LUIS ANGEL Insulin Human Lispro (Insulin Lispro 100 Unit/Ml 3 Ml Vial) 0 unit SUBCUT QIDACHS [facility]; Protocol Last Admin: 04/05/24 12:18 Dose: 2 unit Documented By: ELO Loratadine (Loratadine 10 Mg Tablet) 10 mg PO DAILY [facility] Last Admin: 04/05/24 08:43 Dose: 10 mg Documented By: SETH Losartan Potassium (Losartan Potassium 50 Mg Tablet) 100 mg PO DAILY [facility]; Protocol Last Admin: 04/05/24 08:42 Dose: 100 mg Documented By: SETH Magnesium Hydroxide (Milk Of Magnesia 30 Ml Oral.Susp) 30 ml PO DAILY PRN PRN Reason: Constipation Magnesium Hydroxide (Milk Of Magnesia 30 Ml Oral.Susp) 30 ml PO DAILY PRN PRN Reason: Constipation Melatonin (Melatonin 3 Mg Tablet) 6 mg PO BEDTIME PRN PRN Reason: Insomnia Omeprazole (Omeprazole 40 Mg Capsule.Dr) 40 mg PO DAILY@0630 [facility] Last Admin: 04/05/24 05:25 Dose: 40 mg Documented By: LUIS ANGEL Ondansetron HCl (Ondansetron Hcl 4 Mg/2 Ml Vial) 4 mg IVPUSH Q8H PRN PRN Reason: Nausea and Vomiting Pharmacy Consult (Consult Rx Vancomycin Dosing) 1 each MISCELLANE DAILY PRN PRN Reason: Consult order Senna (Sennosides 8.6 Mg Tablet) 8.6 mg PO DAILY PRN PRN Reason: Constipation Last Admin: 04/04/24 17:20 Dose: 8.6 mg Documented By: XI Sertraline HCl (Sertraline Hcl 50 Mg Tablet) 50 mg PO DAILY [facility] Last Admin: 04/05/24 08:43 Dose: 50 mg Documented By: SETH Sodium Biphosphate/Sodium Phosphate (Sodium Phosphate,[place]-Dibasic 133 Ml Enema) 118 ml HI DAILY PRN PRN Reason: Constipation Sodium Chloride (0.9 % Sodium Chloride Flush 3 Ml Syringe) 3 ml IVFLUSH QSHIFT [facility] Last Admin: 04/05/24 08:45 Dose: 3 ml Documented By: SETH Sodium Hypochlorite (Sodium Hypochlorite 0.5% 473 Ml Solution) 1 appl TOPICAL DAILY [facility] Last Admin: 04/05/24 12:20 Dose: Not Given Documented By: ELO Non-Admin Reason: Duplicate Order Sodium Hypochlorite (Sodium Hypochlorite 0.125% 473 Ml Solution) 1 appl TOPICAL DAILY [facility] Last Admin: 04/05/24 12:19 Dose: 1 appl Documented By: ELO Vitamin D (Cholecalciferol (Vitamin D3) 25 Mcg Tablet) 50 mcg PO DAILY [facility] Last Admin: 04/05/24 08:43 Dose: 50 mcg Documented By: SETH Labs 04/03/24 05:53 04/05/24 05:23 Labs: Laboratory Results - last 24 hr 04/04/24 04/05/24 04/05/24 19:59 05:23 08:06 Hold Purple Top SEE NOTE Estim Creat Clear Calc 47.1 Estimated GFR 40 POC Glucose 178 H 106 Random Vancomycin 04/05/24 04/05/24 04/05/24 09:09 11:15 16:03 Hold Purple Top Estim Creat Clear Calc Estimated GFR POC Glucose 165 H 153 H Random Vancomycin 19.4 Microbiology Microbiology Results: Microbiology 04/04/24 10:27 Blood Culture - Preliminary Blood - Venous No growth after 24 hours. 04/04/24 10:30 Blood Culture - Preliminary Blood - Venous No growth after 24 hours. 04/02/24 10:34 Blood Culture - Preliminary Blood - Venous Prelim: GPC Gram Stain only 04/03/24 Unknown Urine Culture - Final Urine clean catch - Clean Catch Midstream 04/02/24 10:56 Blood Culture - Final Blood - Venous Proteus mirabilis Assessment and Plan (1) Diabetic foot infection: Status: Acute Plan This is a 63 year old women with a hx of DM with chronic right foot ulcer, completed 6 weeks of IV kefzol in January admitted for worsening foot infection and osteomyelitis chronic Osteomyelitis with diabetic foot ulcer and cellulitis MRI showing changes of Charcot foot, possible early abscess to plantar midfoot and concomitant osteomyelitis Continue IV Vancomycin/zosyn seen by general surgery - continue local woundcare Wound care nurse consult> dakins soaked fluff packed into ulcer followed by fluffs, kerlix wrap seen by ID, will need 6 weeks of antibiotics upon discharge- Guevara ordered, blood cultures need to be negative before placement polymicrobial bacteremia 1/2 growing GPC 1/2 growing proteus sp continue vanc/zosyn as above for now until sensitivities return ID following Follow up final culture results will need echo if GPC real pathogen repeat blood cultures ordered and negative at 24 hours [id number] on CKD 3 back to baseline monitor BMP HTN Continue losartan, hydralazine DM 2 ss, Lantus, ada diet GERD PPI Mental health continue zoloft DVT prophylaxis with heparin full code Patient requires ongoing inpatient stay for management of osteomyelitis requiring IV antibiotics, infectious disease consultation and surgical evaluation Quality Stroke Does the patient have a stroke diagnosis?: No VTE Prior VTE?: No VTE Risk Level:: Medical - moderate - high VTE Device Contraindication: N/A - Device Ordered VTE Drug Contraindication: Treatment Not Indicated
[2024-04-05] MEDS: Sennosides 8.6 MG TABLET PO (17:14)
[2024-04-05] MEDS: ondansetron HCL 4 MG/2 ML VIAL IVPUSH (19:39)
[2024-04-05 20:14] LABS: Glucose, Whole Blood 178 mg/dL (60-115)
[2024-04-05] MEDS: Insulin Glargine,Hum.rec.anlog 100 UNIT/ML 10 ML VIAL 20 UNIT SUBCUT (21:44)
--- NOTE | 2024-04-05 22:40 | PC.NURSE ---
2100; Patient felt nauseous prn zofran administered per mar at 1938. At about 2044, patient vomited all of her dinner. Patient no longer complains of nausea. bedtime POC 178, scheduled 20 units lantus at bedtime and sliding scale. Dr. Metzger notified. Per Dr. Metzger give 10 units of Lantus only, per md, use current order and administer 10 units lantus. In [facility] pulled out only 10 units Lantus, pharmacy notified.
[2024-04-06] VITALS (7 sets, daily range): BP systolic 153–185; BP diastolic 66–83; PULSE 64–79; RESP 16–21; TEMP 36–36.3; O2SAT 93–96
[2024-04-06] MEDS: Omeprazole 40 MG CAPSULE.DR PO (06:03)
[2024-04-06] MEDS: Piperacillin Sodium/Tazobactam 4.5 GM in 0.9 % Sodium Chloride 100 ML IV ×3 (06:04→17:44)
[2024-04-06 06:26] LABS: Hematocrit 31.6 % (37.0-47.0); Hemoglobin 10.3 g/dl (12.0-16.0); Mean Corpuscular HGB Conc 32.6 g/dl (31.0-35.0); Mean Corpuscular Hemoglobin 26.9 pg (27.0-33.0); Mean Corpuscular Volume 82.5 fL (80.0-98.0); Mean Platelet Volume 9.4 fL (9.4-12.3); Platelet Count 501 X10*3/uL (160-400); Red Blood Count 3.83 X10*6/uL (4.20-5.50); Red Cell Distribution Width 14.3 % (11.0-16.0); White Blood Count 12.4 X10*3/uL (4.8-10.8)
[2024-04-06 06:34] LABS: Anion Gap 13 (12-20); Blood Urea Nitrogen 20 mg/dL (9-16); Calcium 8.9 mg/dL (8.4-10.2); Carbon Dioxide 22 mmol/L (22-29); Chloride 109 mmol/L (96-108); Creatinine Clr Calc Pharmacy 46.8; Estimated Glomerular Filt Rate 40; Glucose Random 163 mg/dL (60-115); Potassium 3.9 mmol/L (3.3-5.1); Sodium 140 mmol/L (135-145)
[2024-04-06 08:16] LABS: Glucose, Whole Blood 161 mg/dL (60-115)
[2024-04-06] MEDS: Insulin Lispro 100 UNIT/ML 3 ML VIAL SUBCUT ×4 (09:01→20:38)
[2024-04-06] MEDS: Sennosides 8.6 MG TABLET PO (09:02)
[2024-04-06] MEDS: Atorvastatin Calcium 20 MG TABLET PO (09:03)
[2024-04-06] MEDS: Sertraline HCL 50 MG TABLET PO (09:03)
[2024-04-06] MEDS: Ferrous Sulfate 324 MG TABLET.DR PO (09:03)
[2024-04-06] MEDS: Cholecalciferol (Vitamin D3) 25 MCG TABLET 50 MCG PO (09:03)
[2024-04-06] MEDS: Loratadine 10 MG TABLET PO (09:04)
[2024-04-06] MEDS: Losartan Potassium 50 MG TABLET 100 MG PO (09:04)
[2024-04-06] MEDS: hydrALAZINE HCl 50 MG TABLET PO ×4 (09:07→20:37)
[2024-04-06] MEDS: 0.9 % Sodium Chloride Flush 3 ML SYRINGE IVFLUSH ×3 (09:08→20:39)
[2024-04-06] MEDS: ondansetron HCL 4 MG/2 ML VIAL IVPUSH ×2 (09:13→23:15)
[2024-04-06 10:17] LABS: Vancomycin Random 20.7 mcg/mL (15-20)
--- NOTE | 2024-04-06 10:28 | HE.PHANOTE ---
RE: vanco Level on 04/06 came back at 20.7; put off next dose for 12 hours and changed to 750 mg Q24H with predicted trough of 14.6, AUC of 461. Next level to be drawn 04/07 @2100
[2024-04-06 11:14] LABS: Glucose, Whole Blood 193 mg/dL (60-115)
[2024-04-06] MEDS: Sodium Hypochlorite 0.125% 473 ML SOLUTION 1 APPL TOPICAL (12:28)
--- NOTE | 2024-04-06 12:44 | P.PNIM_ITS ---
Subjective Subjective Date of Service: 04/06/24 Interval History: seen and examined this morning follow up for right foot wound/chronic osteo no overnight events having some nausea this morning no abdominal pain or diarrhea Review of Systems Review of Systems: Yes all other systems are reviewed and are negative Constitutional Constitutional: Denies chills and Denies fever(s) Cardiovascular Cardiovascular: Denies chest pain, Denies palpitations and Denies dyspnea Respiratory Respiratory: Denies cough and Denies dyspnea Endocrine Endocrine: Denies palpitations Physical Exam 2 Vital Signs: Vital Signs: Last Vital Signs Temp 97.4 F 04/06/24 07:33 Pulse 64 04/06/24 07:33 Resp 16 04/06/24 07:33 BP 162/69 H 04/06/24 09:04 Pulse Ox 96 04/06/24 07:33 O2 Del Method Room Air 04/06/24 07:33 BMI result Body Mass Index 29.4 Const: General: alert and awake Nutritional Appearance: overweight O rientation/consciousness: patient oriented x3 Resp: Effort & Inspection: normal respiratory effort, able to speak in complete sentences, no respiratory distress and no use of accessory muscles Cardio: Rate: regular rate GI: Inspection: No distended Palpation (GI): Soft to palpation, nontender and no guarding Skin: Other: right foot wrapped in clean intact dressing Neuro: General: patient oriented x3, moves all extremities and CN's II-XI intact bilaterally Objective Data Active Medications Acetaminophen (Acetaminophen 325 Mg Tablet) 650 mg PO Q6H PRN PRN Reason: Pain, Mild 1-3,fever,headache Atorvastatin Calcium (Atorvastatin Calcium 20 Mg Tablet) 20 mg PO DAILY [facility] Last Admin: 04/06/24 09:03 Dose: 20 mg Documented By: FAISAL Bisacodyl (Bisacodyl 10 Mg Supp.Rect) 10 mg [place] DAILY PRN PRN Reason: Constipation Calcium Carbonate (Calcium Carbonate 750 Mg Tab.Chew) 750 mg PO Q4H PRN PRN Reason: Heartburn Dextrose (Dextrose 50 % 25 Gm/50 Ml Syringe) 25 gm IVPUSH Q15M PRN; Protocol PRN Reason: per Hypoglycemia Standing Ord. Ferrous Sulfate (Ferrous Sulfate 324 Mg Tablet.Dr) 324 mg PO DAILY [facility] Last Admin: 04/06/24 09:03 Dose: 324 mg Documented By: FAISAL Glucose (Glucose Gel 15 Gm Gel..Gram.) 15 gm PO Q15M PRN; Protocol PRN Reason: per Hypoglycemia Standing Ord. Guaifenesin (Guaifenesin 200 Mg/10 Ml 10 Ml Liquid) 10 ml PO Q4H PRN PRN Reason: Cough Heparin Sodium (Porcine) (Heparin Sodium,Porcine 5,000 Unit/Ml Vial) 5,000 unit SUBCUT Q12H [facility] Last Admin: 04/06/24 03:42 Dose: Not Given Documented By: FADI Non-Admin Reason: Allergy Hydralazine HCl (Hydralazine Hcl 50 Mg Tablet) 50 mg PO QID [facility]; Protocol Last Admin: 04/06/24 09:07 Dose: 50 mg Documented By: FAISAL Piperacillin Sod/Tazobactam (Sod 4.5 gm/ Sodium Chloride) 100 mls @ 200 mls/hr IV Q6H [facility] Last Infusion: 04/06/24 06:35 Dose: Infused Documented By: FADI Vancomycin HCl 750 mg/ Sodium (Chloride) 265 mls @ 265 mls/hr IV Q24H [facility] Insulin Glargine (Insulin Glargine,Hum.Rec.Anlog 100 Unit/Ml 10 Ml Vial) 20 unit SUBCUT BEDTIME [facility] Last Admin: 04/05/24 21:44 Dose: 10 unit Documented By: FADI Comments: per Dr. Metzger give 10 units lantus ; pharmacy notified Insulin Human Lispro (Insulin Lispro 100 Unit/Ml 3 Ml Vial) 0 unit SUBCUT QIDACHS [facility]; Protocol Last Admin: 04/06/24 12:27 Dose: 2 unit Documented By: FAISAL Loratadine (Loratadine 10 Mg Tablet) 10 mg PO DAILY [facility] Last Admin: 04/06/24 09:04 Dose: 10 mg Documented By: FAISAL Losartan Potassium (Losartan Potassium 50 Mg Tablet) 100 mg PO DAILY [facility]; Protocol Last Admin: 04/06/24 09:04 Dose: 100 mg Documented By: FAISAL Magnesium Hydroxide (Milk Of Magnesia 30 Ml Oral.Susp) 30 ml PO DAILY PRN PRN Reason: Constipation Melatonin (Melatonin 3 Mg Tablet) 6 mg PO BEDTIME PRN PRN Reason: Insomnia Omeprazole (Omeprazole 40 Mg Capsule.) 40 mg PO DAILY@0630 [facility] Last Admin: 04/06/24 06:03 Dose: 40 mg Documented By: FADI Ondansetron HCl (Ondansetron Hcl 4 Mg/2 Ml Vial) 4 mg IVPUSH Q8H PRN PRN Reason: Nausea and Vomiting Last Admin: 04/06/24 09:13 Dose: 4 mg Documented By: FAISAL Pharmacy Consult (Consult Rx Vancomycin Dosing) 1 each MISCELLANE DAILY PRN PRN Reason: Consult order Senna (Sennosides 8.6 Mg Tablet) 8.6 mg PO DAILY [facility] Last Admin: 04/06/24 09:02 Dose: 8.6 mg Documented By: FAISAL Sertraline HCl (Sertraline Hcl 50 Mg Tablet) 50 mg PO DAILY [facility] Last Admin: 04/06/24 09:03 Dose: 50 mg Documented By: FAISAL Sodium Biphosphate/Sodium Phosphate (Sodium Phosphate,[place]-Dibasic 133 Ml Enema) 118 ml [place] DAILY PRN PRN Reason: Constipation Sodium Chloride (0.9 % Sodium Chloride Flush 3 Ml Syringe) 3 ml IVFLUSH QSHIFT [facility] Last Admin: 04/06/24 09:08 Dose: 3 ml Documented By: FAISAL Sodium Hypochlorite (Sodium Hypochlorite 0.125% 473 Ml Solution) 1 appl TOPICAL DAILY [facility] Last Admin: 04/06/24 12:28 Dose: 1 appl Documented By: FAISAL Vitamin D (Cholecalciferol (Vitamin D3) 25 Mcg Tablet) 50 mcg PO DAILY [facility] Last Admin: 04/06/24 09:03 Dose: 50 mcg Documented By: FAISAL Labs 04/06/24 05:17 04/06/24 05:17 Labs: Laboratory Results - last 24 hr 04/05/24 04/05/24 04/06/24 16:03 20:08 05:17 MCV 82.5 MCH 26.9 L MCHC 32.6 RDW 14.3 Plt Count 501 H MPV 9.4 Absolute Nucleated RBC 0.000 Nucleated RBC % (auto) 0.0 Anion Gap 13 Estim Creat Clear Calc 46.8 Estimated GFR 40 POC Glucose 153 H 178 H Random Glucose 163 H Calcium 8.9 Random Vancomycin 04/06/24 04/06/24 04/06/24 08:12 09:06 11:06 MCV MCH MCHC RDW Plt Count MPV Absolute Nucleated RBC Nucleated RBC % (auto) Anion Gap Estim Creat Clear Calc Estimated GFR POC Glucose 161 H 193 H Random Glucose Calcium Random Vancomycin 20.7 H Microbiology Microbiology Results: Microbiology 04/04/24 10:27 Blood Culture - Preliminary Blood - Venous No growth after 48 hours. 04/04/24 10:30 Blood Culture - Preliminary Blood - Venous No growth after 48 hours. 04/02/24 10:34 Blood Culture - Preliminary Blood - Venous Prelim: GPC Gram Stain only 04/03/24 Unknown Urine Culture - Final Urine clean catch - Clean Catch Midstream Assessment and Plan (1) Diabetic foot infection: Status: Acute Plan This is a 63 year old women with a hx of DM with chronic right foot ulcer, s/p 6 weeks of IV kefzol in January admitted for worsening foot infection and osteomyelitis chronic Osteomyelitis with diabetic foot ulcer and cellulitis MRI showing changes of Charcot foot, possible early abscess to plantar midfoot and concomitant osteomyelitis Continue IV Vancomycin/zosyn seen by general surgery - continue local wound care, no acute surgical intervention recommended at this time Wound care nurse consult> dakins soaked fluff packed into ulcer followed by fluffs, kerlix wrap seen by ID, will need 6 weeks of antibiotics upon discharge- Guevara ordered, blood cultures need to be negative before placement polymicrobial bacteremia 1/2 growing GPC - called lab will have identification this afternoon 1/2 growing proteus mirabilis sensitive to ceftriaxone continue vanc/zosyn as above for now until sensitivities return ID following Follow up final culture results will need echo if GPC real pathogen repeat blood cultures ordered and negative at 24 hours VENKATESH on CKD 3 back to baseline monitor BMP HTN Continue losartan, hydralazine DM 2 ss, Lantus, ada diet GERD PPI Mental health continue zoloft chronic normaocytic anemia H/H stable and at baseline above transfusion threshold continue baseline iron supplementation DVT prophylaxis with heparin full code Patient requires ongoing inpatient stay for management of osteomyelitis requiring IV antibiotics, infectious disease consultation and surgical evaluation Quality Stroke Does the patient have a stroke diagnosis?: No VTE Prior VTE?: No VTE Risk Level:: Medical - moderate - high VTE Device Contraindication: N/A - Device Ordered VTE Drug Contraindication: Treatment Not Indicated
[2024-04-06 16:09] LABS: Glucose, Whole Blood 177 mg/dL (60-115)
--- NOTE | 2024-04-06 17:42 | PC.NURSE ---
patient refuses Heparin,risks explained,encouraged activity
[2024-04-06 20:17] LABS: Glucose, Whole Blood 183 mg/dL (60-115)
[2024-04-06] MEDS: Insulin Glargine,Hum.rec.anlog 100 UNIT/ML 10 ML VIAL 20 UNIT SUBCUT (20:37)
[2024-04-06] MEDS: vancomycin HCL 750 MG in 0.9 % Sodium Chloride 250 ML 265 MG IV (23:11)
[2024-04-07] MEDS: Piperacillin Sodium/Tazobactam 4.5 GM in 0.9 % Sodium Chloride 100 ML IV ×3 (00:18→11:39)
[2024-04-07 04:19] VITALS: BP 174/66; PULSE 69; RESP 18; TEMP 36.6; O2SAT 96
[2024-04-07] MEDS: Omeprazole 40 MG CAPSULE.DR PO (05:52)
[2024-04-07 06:35] LABS: Creatinine Clr Calc Pharmacy 40.5; Estimated Glomerular Filt Rate 34
[2024-04-07 07:29] VITALS: BP 180/74; PULSE 69; RESP 16; TEMP 36.5; O2SAT 93
[2024-04-07 07:29] LABS: Glucose, Whole Blood 103 mg/dL (60-115)
[2024-04-07 07:46] LABS: Anion Gap 13 (12-20); Blood Urea Nitrogen 21 mg/dL (9-16); Calcium 8.8 mg/dL (8.4-10.2); Carbon Dioxide 22 mmol/L (22-29); Chloride 109 mmol/L (96-108); Glucose Random 111 mg/dL (60-115); Potassium 3.9 mmol/L (3.3-5.1); Sodium 140 mmol/L (135-145)
[2024-04-07] MEDS: hydrALAZINE HCl 50 MG TABLET PO ×4 (07:57→21:21)
[2024-04-07] MEDS: Loratadine 10 MG TABLET PO (07:58)
[2024-04-07] MEDS: Cholecalciferol (Vitamin D3) 25 MCG TABLET 50 MCG PO (07:58)
[2024-04-07] MEDS: Ferrous Sulfate 324 MG TABLET.DR PO (07:58)
[2024-04-07] MEDS: Losartan Potassium 50 MG TABLET 100 MG PO (07:58)
[2024-04-07] MEDS: Sertraline HCL 50 MG TABLET PO (07:58)
[2024-04-07] MEDS: Atorvastatin Calcium 20 MG TABLET PO (07:58)
[2024-04-07] MEDS: 0.9 % Sodium Chloride Flush 3 ML SYRINGE IVFLUSH (07:58)
[2024-04-07 11:29] LABS: Glucose, Whole Blood 155 mg/dL (60-115)
[2024-04-07] MEDS: Insulin Lispro 100 UNIT/ML 3 ML VIAL SUBCUT ×3 (11:39→21:22)
[2024-04-07] MEDS: ondansetron HCL 4 MG/2 ML VIAL IVPUSH (11:39)
--- NOTE | 2024-04-07 12:20 | HO.PM.IMPN ---
Subjective Subjective Date of Service: 04/07/24 Interval History: seen and examined this morning follow up for foot infection, bacteremia nausea resolved blood pressure elevated Review of Systems Review of Systems: Yes all other systems are reviewed and are negative Constitutional Constitutional: Denies chills and Denies fever(s) Cardiovascular Cardiovascular: Denies chest pain and Denies palpitations Gastrointestinal Gastrointestinal: Denies abdominal pain, Denies nausea and Denies vomiting Endocrine Endocrine: Denies palpitations Physical Exam Vital Signs: Vital Signs: Last Vital Signs Temp 97.7 F 04/07/24 07:29 Pulse 69 04/07/24 07:29 Resp 16 04/07/24 07:29 BP 180/74 H 04/07/24 07:29 Pulse Ox 93 04/07/24 07:29 O2 Del Method Room Air 04/07/24 07:29 BMI result Body Mass Index 29.4 Const: General: cooperative, comfortable, alert and awake Nutritional Appearance: overweight Orientation/consciousness: patient oriented x3 Resp: Effort & Inspection: normal respiratory effort, able to speak in complete sentences, no respiratory distress and no use of accessory muscles Cardio: Rate: regular rate GI: Inspection: No distended Palpation (GI): Soft to palpation, nontender and no guarding Skin: Other: right foot wrapped in clean intact dressing Neuro: General: patient oriented x3, moves all extremities and CN's II-XI intact bilaterally Extrem: General: Yes no pedal edema Objective Data Active Medications Acetaminophen (Acetaminophen 325 Mg Tablet) 650 mg PO Q6H PRN PRN Reason: Pain, Mild 1-3,fever,headache Atorvastatin Calcium (Atorvastatin Calcium 20 Mg Tablet) 20 mg PO DAILY [facility] Last Admin: 04/07/24 07:58 Dose: 20 mg Documented By: SUNNY Bisacodyl (Bisacodyl 10 Mg Supp.Rect) 10 mg [place] DAILY PRN PRN Reason: Constipation Calcium Carbonate (Calcium Carbonate 750 Mg Tab.Chew) 750 mg PO Q4H PRN PRN Reason: Heartburn Dextrose (Dextrose 50 % 25 Gm/50 Ml Syringe) 25 gm IVPUSH Q15M PRN; Protocol PRN Reason: per Hypoglycemia Standing Ord. Ferrous Sulfate (Ferrous Sulfate 324 Mg Tablet.Dr) 324 mg PO DAILY [facility] Last Admin: 04/07/24 07:58 Dose: 324 mg Documented By: SUNNY Glucose (Glucose Gel 15 Gm Gel..Gram.) 15 gm PO Q15M PRN; Protocol PRN Reason: per Hypoglycemia Standing Ord. Guaifenesin (Guaifenesin 200 Mg/10 Ml 10 Ml Liquid) 10 ml PO Q4H PRN PRN Reason: Cough Heparin Sodium (Porcine) (Heparin Sodium,Porcine 5,000 Unit/Ml Vial) 5,000 unit SUBCUT Q12H [facility] Last Admin: 04/07/24 04:26 Dose: Not Given Documented By: RAYMOND Non-Admin Reason: Allergy Hydralazine HCl (Hydralazine Hcl 50 Mg Tablet) 50 mg PO QID [facility]; Protocol Last Admin: 04/07/24 07:57 Dose: 50 mg Documented By: SUNNY Piperacillin Sod/Tazobactam (Sod 4.5 gm/ Sodium Chloride) 100 mls @ 200 mls/hr IV Q6H [facility] Last Admin: 04/07/24 11:39 Dose: 200 mls/hr Documented By: SUNNY Insulin Glargine (Insulin Glargine,Hum.Rec.Anlog 100 Unit/Ml 10 Ml Vial) 20 unit SUBCUT BEDTIME [facility] Last Admin: 04/06/24 20:37 Dose: 20 unit Documented By: RAYMOND Insulin Human Lispro (Insulin Lispro 100 Unit/Ml 3 Ml Vial) 0 unit SUBCUT QIDACHS [facility]; Protocol Last Admin: 04/07/24 11:39 Dose: 2 unit Documented By: SUNNY Loratadine (Loratadine 10 Mg Tablet) 10 mg PO DAILY [facility] Last Admin: 04/07/24 07:58 Dose: 10 mg Documented By: SUNNY Losartan Potassium (Losartan Potassium 50 Mg Tablet) 100 mg PO DAILY [facility]; Protocol Last Admin: 04/07/24 07:58 Dose: 100 mg Documented By: SUNNY Magnesium Hydroxide (Milk Of Magnesia 30 Ml Oral.Susp) 30 ml PO DAILY PRN PRN Reason: Constipation Melatonin (Melatonin 3 Mg Tablet) 6 mg PO BEDTIME PRN PRN Reason: Insomnia Omeprazole (Omeprazole 40 Mg Capsule.Dr) 40 mg PO DAILY@0630 [facility] Last Admin: 04/07/24 05:52 Dose: 40 mg Documented By: RAYMOND Ondansetron HCl (Ondansetron Hcl 4 Mg/2 Ml Vial) 4 mg IVPUSH Q8H PRN PRN Reason: Nausea and Vomiting Last Admin: 04/07/24 11:39 Dose: 4 mg Documented By: SUNNY Senna (Sennosides 8.6 Mg Tablet) 8.6 mg PO DAILY [facility] Last Admin: 04/07/24 07:59 Dose: Not Given Documented By: SUNNY Non-Admin Reason: Patient Refused Sertraline HCl (Sertraline Hcl 50 Mg Tablet) 50 mg PO DAILY [facility] Last Admin: 04/07/24 07:58 Dose: 50 mg Documented By: SUNNY Sodium Biphosphate/Sodium Phosphate (Sodium Phosphate,[place]-Dibasic 133 Ml Enema) 118 ml [place] DAILY PRN PRN Reason: Constipation Sodium Chloride (0.9 % Sodium Chloride Flush 3 Ml Syringe) 3 ml IVFLUSH QSHIFT [facility] Last Admin: 04/07/24 07:58 Dose: 3 ml Documented By: SUNNY Sodium Hypochlorite (Sodium Hypochlorite 0.125% 473 Ml Solution) 1 appl TOPICAL DAILY [facility] Last Admin: 04/06/24 12:28 Dose: 1 appl Documented By: FAISAL Vitamin D (Cholecalciferol (Vitamin D3) 25 Mcg Tablet) 50 mcg PO DAILY [facility] Last Admin: 04/07/24 07:58 Dose: 50 mcg Documented By: SUNNY Labs 04/06/24 05:17 04/07/24 05:32 Labs: Laboratory Results - last 24 hr 04/06/24 04/06/24 04/07/24 16:00 20:06 05:32 Anion Gap 13 Estim Creat Clear Calc 40.5 Estimated GFR 34 POC Glucose 177 H 183 H Random Glucose 111 Calcium 8.8 04/07/24 04/07/24 07:25 11:14 Anion Gap Estim Creat Clear Calc Estimated GFR POC Glucose 103 155 H Random Glucose Calcium Microbiology Microbiology Results: Microbiology 04/02/24 10:34 Blood Culture - Final Blood - Venous Peptoniphilus asaccharolyticus 04/04/24 10:27 Blood Culture - Preliminary Blood - Venous No growth after 48 hours. 04/04/24 10:30 Blood Culture - Preliminary Blood - Venous No growth after 48 hours. Assessment and Plan (1) Diabetic foot infection: Status: Acute (2) Foot osteomyelitis, right: Status: Acute Plan This is a 63 year old women with a hx of DM with chronic right foot ulcer, s/p 6 weeks of IV kefzol in January admitted for worsening foot infection and osteomyelitis chronic osteomyelitis with diabetic foot ulcer and cellulitis MRI showing changes of Charcot foot, possible early abscess to plantar midfoot and concomitant osteomyelitis Initially treated with IV vanco/zosyn - antibiotic adjustment based on cultures to IV ceftriaxone seen by general surgery - continue local wound care, no acute surgical intervention recommended at this time Wound care nurse consult> dakins soaked fluff packed into ulcer followed by fluffs, kerlix wrap seen by ID, will need 6 weeks of antibiotics upon discharge- Guevara ordered, repeat blood cultures negative, likely placement on Monday polymicrobial bacteremia 1/2 growing GPC - Peptoniphilus asaccharolyticus 1/2 growing proteus mirabilis sensitive to ceftriaxone both sensitive to ceftriaxone ID following Surveillance cultures negative to date will need echo if GPC real pathogen VENKATESH on CKD 3 SCr trending back up slightly, possibly due to nausea and decreased po intake yestserday will give gentle IVF if renal function continues up will need to consider holding losartan monitor BMP HTN blood pressure uncontrolled Continue losartan, hydralazine allergic to norvasc no diuretics with renal function will start metoprolol follow bp closely DM 2 ss, Lantus, ada diet GERD PPI Mental health continue zoloft chronic normocytic anemia H/H stable and at baseline above transfusion threshold continue baseline iron supplementation DVT prophylaxis with heparin full code Patient requires ongoing inpatient stay for management of osteomyelitis requiring IV antibiotics, infectious disease consultation and surgical evaluation Quality Stroke Does the patient have a stroke diagnosis?: No VTE Prior VTE?: No VTE Risk Level:: Medical - moderate - high VTE Device Contraindication: N/A - Device Ordered VTE Drug Contraindication: Treatment Not Indicated
[2024-04-07 13:21] VITALS: BP 158/59; PULSE 68
[2024-04-07] MEDS: Lactated Ringers 1,000 ML 100 ML IVCONT ×2 (13:21→23:03)
[2024-04-07] MEDS: Metoprolol Tartrate 25 MG TABLET PO (13:21)
[2024-04-07] MEDS: Sodium Hypochlorite 0.125% 473 ML SOLUTION 1 APPL TOPICAL (13:22)
[2024-04-07 14:55] VITALS: BP 171/73; PULSE 56; RESP 16; TEMP 36; O2SAT 95
[2024-04-07 16:16] LABS: Glucose, Whole Blood 167 mg/dL (60-115)
[2024-04-07] MEDS: cefTRIAXone sodium 1 GM VIAL IVPUSH (18:13)
--- NOTE | 2024-04-07 19:18 | PC.NURSE ---
BP 180/74, consistently above 160 systolic. Provider notified. Metoprolol ordered and given. Pt reported feeling dizzy and nauseous a few hours later and stated she doesn't want to take that again. BP 171/73, HR 56. Patient had previously been complaining of nausea and was OOB for first time in a few days. Provider notified and metoprolol d/c'd.
[2024-04-07 19:48] VITALS: BP 142/60; PULSE 60; RESP 18; TEMP 36.5; O2SAT 96
[2024-04-07 21:01] LABS: Glucose, Whole Blood 160 mg/dL (60-115)
[2024-04-07] MEDS: Insulin Glargine,Hum.rec.anlog 100 UNIT/ML 10 ML VIAL 20 UNIT SUBCUT (21:22)
[2024-04-07 21:29] LABS: Vancomycin Random 18.7 mcg/mL (15-20)
[2024-04-08] VITALS (10 sets, daily range): BP systolic 142–185; BP diastolic 64–76; PULSE 64–74; RESP 14–18; TEMP 36.1–36.6; O2SAT 94–97
[2024-04-08] MEDS: Omeprazole 40 MG CAPSULE.DR PO (05:43)
[2024-04-08 06:50] LABS: Hematocrit 27.7 % (37.0-47.0); Mean Corpuscular HGB Conc 32.5 g/dl (31.0-35.0); Mean Corpuscular Hemoglobin 27.2 pg (27.0-33.0); Mean Corpuscular Volume 83.7 fL (80.0-98.0); Mean Platelet Volume 9.1 fL (9.4-12.3); Platelet Count 407 X10*3/uL (160-400); Red Blood Count 3.31 X10*6/uL (4.20-5.50); Red Cell Distribution Width 14.6 % (11.0-16.0)
[2024-04-08 07:16] LABS: Anion Gap 10 (12-20); Blood Urea Nitrogen 21 mg/dL (9-16); Calcium 8.3 mg/dL (8.4-10.2); Carbon Dioxide 24 mmol/L (22-29); Chloride 111 mmol/L (96-108); Creatinine Clr Calc Pharmacy 38.5; Estimated Glomerular Filt Rate 32; Glucose Random 149 mg/dL (60-115); Potassium 3.8 mmol/L (3.3-5.1); Sodium 141 mmol/L (135-145)
[2024-04-08 08:00] LABS: Glucose, Whole Blood 156 mg/dL (60-115)
[2024-04-08] MEDS: Losartan Potassium 50 MG TABLET 100 MG PO (08:58)
[2024-04-08] MEDS: Cholecalciferol (Vitamin D3) 25 MCG TABLET 50 MCG PO (08:58)
[2024-04-08] MEDS: Insulin Lispro 100 UNIT/ML 3 ML VIAL SUBCUT (08:58)
[2024-04-08] MEDS: Atorvastatin Calcium 20 MG TABLET PO (08:59)
[2024-04-08] MEDS: hydrALAZINE HCl 50 MG TABLET PO ×3 (08:59→17:35)
[2024-04-08] MEDS: Loratadine 10 MG TABLET PO (08:59)
[2024-04-08] MEDS: Sertraline HCL 50 MG TABLET PO (08:59)
[2024-04-08] MEDS: Lactated Ringers 1,000 ML 100 ML IVCONT (10:33)
[2024-04-08 11:24] LABS: Glucose, Whole Blood 121 mg/dL (60-115)
--- NOTE | 2024-04-08 12:05 | P.DS_ITS ---
DS: Providers Provider Date of Service: 04/08/24 Date of admission: 04/02/24 15:42 Date of discharge: 04/08/24 Primary care physician: Gilson Davidson MD Consults: 04/02/24 21:27 Consult to Wound Care Routine Reason for consultation: diabetic foot ulcer on right Has provider been notified: Yes 04/03/24 07:13 Consult to General Surgery Routine Consulting Provider: [facility] [place] [facility] Reason for consultation: ? abscess to foot 04/04/24 09:53 Consult to Infectious Diseases Routine Consulting Provider: [facility] [place] [facility] Reason for consultation: Right foot osteo; bacteremia Has provider been notified: No DS: Diagnosis Discharge Diagnosis (1) Diabetic foot infection: Status: Acute (2) Foot osteomyelitis, right: Status: Acute DS: Summary Hospital Course Hospital Course: History and physical as per admitting provider. 63-year-old female with a past medical history CKD, diabetes, diabetic foot wound, HLD, HTN, right foot osteomyelitis, PAD, presenting to the ED via EMS from [facility] due to malodorous, draining right foot wound with Charcot foot. Patient reports chronic pain with a history of neuropathy. She denies fever, chills, nausea, vomiting, diarrhea. She [facility] with [facility] but reports wound has been getting worse. Venous Doppler ultrasound in the ER was negative for DVT, foot x-ray shows large soft tissue ulceration to the plantar posterior midfoot but no extension of subcutaneous gas workup foot and no definitive radiographic findings of osteomyelitis. No fever, tachycardia. Mildly elevated blood pressure, no hypoxia, white blood cell count of 13.5, creatinine 1.74 with clearance close baseline. Plan is to admit patient for further management and treatment of possible acute osteomyelitis. Chronic osteomyelitis with diabetic foot ulcer and cellulitis . MRI showing changes of Charcot foot, possible early abscess to plantar midfoot and concomitant osteomyelitis. Initially treated with IV vanco/zosyn - antibiotic adjustment based on cultures to IV ceftriaxone . seen by general surgery - continue local wound care, no acute surgical intervention recommended at this time . Wound care nurse consult> dakins soaked fluff packed into ulcer followed by fluffs, kerlix wrap. seen by ID, will need 6 weeks of antibiotics upon discharge- Guevara placed 04/08/2024, repeat blood cultures negative. polymicrobial bacteremia, 1/2 growing GPC - Peptoniphilus asaccharolyticus, 1/2 growing proteus mirabilis both sensitive to ceftriaxone. Surveillance cultures negative to date. VENKATESH on CKD 3. possibly due to nausea and decreased po intake yesterday, treated with IV fluids HTN . Blood pressure uncontrolled, continue hydralazine and metoprolol, hold losartan due to VENKATESH. DM 2. Continue home medications GERD . PPI Mental health . continue zoloft chronic normocytic anemia. H&H has remained stable during hospitalization, above transfusion threshold. Time Attestation Discharge Coordination Time (in mins): 38 Quality: Safe Use of Opioids Does Pt have an Active Cancer Diagnosis on the Problem List?: No Quality: Stroke Does the patient have a stroke diagnosis?: No Physical Exam Vital Signs: Vital Signs: Last Vital Signs Temp 97.3 F 04/08/24 07:49 Pulse 64 04/08/24 07:49 Resp 16 04/08/24 07:49 BP 142/70 H 04/08/24 08:40 Pulse Ox 96 04/08/24 07:49 O2 Del Method Room Air 04/08/24 07:49 BMI result Body Mass Index 29.4 Appearing in no acute distress head is normocephalic atraumatic eyes pupils are PERRLA sclera is anicteric mouth throat mucous membranes are intact and moist neck is supple no lymphadenopathy, no JVD noted lung sounds are clear to auscultation heart regular rate rhythm, clear S1, S2 positive bowel sounds, abdomen is soft, nontender neuro patient is alert x3, no focal deficits Guevara catheter Plantar diabetic foot wound DS: Data Data Completed and Pending Completed studies during hospitalization [Text1]: Procedures Excision of Right Foot Skin, External Approach (12/31/23) Excision of Right Foot Subcutaneous Tissue and Fascia, Open Approach (08/19/20) Insertion of Infusion Device into Superior Vena Cava, Percutaneous Approach (12/31/23) Replacement of Left Hip Joint, Femoral Surface with Synthetic Substitute, Uncemented, Open Approach (11/28/23) Ultrasonography of Superior Vena Cava, Guidance (12/31/23) Labs on day of discharge: Laboratory Results - last 24 hr 04/07/24 04/07/24 04/07/24 16:11 20:56 21:01 WBC RBC Hgb Hct MCV MCH MCHC RDW Plt Count MPV Absolute Nucleated RBC Nucleated RBC % (auto) Sodium Potassium Chloride Carbon Dioxide Anion Gap BUN Creatinine Estim Creat Clear Calc Estimated GFR POC Glucose 167 H 160 H Random Glucose Calcium Random Vancomycin 18.7 04/08/24 04/08/24 04/08/24 05:29 07:53 11:12 WBC 10.0 RBC 3.31 L Hgb 9.0 L Hct 27.7 L MCV 83.7 MCH 27.2 MCHC 32.5 RDW 14.6 Plt Count 407 H MPV 9.1 L Absolute Nucleated RBC 0.000 Nucleated RBC % (auto) 0.0 Sodium 141 Potassium 3.8 Chloride 111 H Carbon Dioxide 24 Anion Gap 10 L BUN 21 H Creatinine 1.64 H Estim Creat Clear Calc 38.5 Estimated GFR 32 POC Glucose 156 H 121 H Random Glucose 149 H Calcium 8.3 L Random Vancomycin Preliminary micro results at discharge 04/04/24 10:27 Blood Culture - Preliminary Blood - Venous No growth after 48 hours. 04/04/24 10:30 Blood Culture - Preliminary Blood - Venous No growth after 48 hours. Discharge Plan Discharge Anticipated Discharge Date/Time: 04/08/24 11:59 Patient Disposition: Xfer [facility] Discharge Diagnosis: Chronic osteomyelitis Diabetic foot ulcer Polymicrobial bacteremia VENKATESH on CKD stage 3 Referrals: Gilson Davidson MD [Primary Care Provider] - 1 Week Discharge Medications: New ceftriaxone 1 gram Recon Soln 1 g IVPUSH Q24H Qty: 1 0RF Continued (DME) FreeStyle Amber 14 Day Sensor Kit topical Q2W Qty: 2 11RF Rx Instructions: As directed (DME) pen needle, diabetic [BD Adela 2nd Gen Pen Needle] 32 gauge x 5/32 nee dle MISCELLANEOUS 5XD Qty: 150 6RF Rx Instructions: As directed 5 x/day ferrous sulfate 325 mg (65 mg iron) tablet,delayed release (DR/EC) 325 mg PO DAILY sennosides [senna] 8.6 mg Tablet 8.6 mg PO DAILY PRN (Reason: Constipation) insulin glargine [Lantus U-100 Insulin] 100 unit/mL Solution 20 unit subcut BEDTIME Qty: 10 0RF insulin lispro [Admelog U-100 Insulin lispro] 100 unit/mL Solution See Protocol subcut QIDACHS Qty: 10 0RF Protocol: Insulin Correction Scale Less than or equal to 110 ---- Give (units): 0 111 to 150 Give (units): 0 151 to 200 Give (units): 2 201 to 250 Give (units): 4 251 to 300 Give (units): 6 301 to 350 Give (units): 8 Greater than 350 Give (units): 10 Call MD if Blood Glucose > : 350 Rx Instructions: BG <111 0 units, 111-150 - 0 units, 151-200 2 units, 201-250 4 units, 251-300 6 units, 301-350 8 units, >350 10 units acetaminophen 325 mg Tablet 650 mg PO Q4H PRN (Reason: Fever Or Pain) acetaminophen 650 mg Suppository 650 mg UT Q4H PRN (Reason: Fever Or Pain) ondansetron HCl 4 mg Tablet 4 mg PO Q6H PRN (Reason: Nausea And Vomiting) guaifenesin 100 mg/5 mL Liquid 200 mg PO Q4H PRN (Reason: Cough) magnesium hydroxide [Milk of Magnesia] 400 mg/5 mL Suspension 30 ml PO DAILY PRN (Reason: Constipation) Rx Instructions: For no BM in 3 days bisacodyl 10 mg Suppository 10 mg UT DAILY PRN (Reason: Constipation) Rx Instructions: For no BM if M.O.M ineffective Fleet Enema 19-7 gram/118 mL Enema 118 ml UT DAILY PRN (Reason: Constipation) Rx Instructions: For no BM and if Bisacodyl supp. ineffective naloxone [Narcan] 4 mg/actuation [place],Non-Aerosol 4 mg INTRANASAL Q3M PRN (Reason: Opioid Reversal) Rx Instructions: spray 1 dose into ONE nostril; alternate nostrils w each dose until help arrives glucagon HCl [Glucagon (HCl) Emergency Kit] 1 mg Recon Soln 1 mg SUBCUT Q20M PRN (Reason: low blood sugar) Rx Instructions: until target blood sugar attained losartan 50 mg tablet 100 mg PO DAILY Protocol: Hold for SBP< HOLD for SBP < : 90 hydralazine 25 mg tablet 50 mg PO Q6H Protocol: Hold for SBP< HOLD for SBP < : 90 loratadine 10 mg Tablet 10 mg PO DAILY cholecalciferol (vitamin D3) [Vitamin D3] 50 mcg (2,000 unit) Capsule 50 mcg PO DAILY (DME) blood-glucose meter [FreeStyle Lite Meter] Kit See Rx Instructions .ROUTE .MEDSUPPLY Qty: 1 0RF Rx Instructions: As directed (DME) FreeStyle Lite Strips Strip See Rx Instructions .ROUTE .MEDSUPPLY Qty: 100 11RF Rx Instructions: As directed three times a day (DME) lancets [FreeStyle Lancets] 28 gauge misc See Rx Instructions .ROUTE .MEDSUPPLY Qty: 100 11RF Rx Instructions: Three times a day rosuvastatin 5 mg tablet 5 mg PO DAILY sertraline 50 mg tablet 50 mg PO DAILY omeprazole 40 mg capsule,delayed release(DR/EC) 40 mg PO DAILY@0630 Discharge Orders: Discharge Order (Routine); Ordered 04/08/24 Ordered By: Chary Melara Diet: Advance to usual diet Activity on Discharge: As tolerated Stand Alone Forms: Patient Portal Discharge page Print Language: Upper Sorbian Care Plan Goals: Rocephin IV for 6 weeks, end date 05/19/2024 Health Concerns: Chronic osteomyelitis Diabetic foot ulcer Polymicrobial bacteremia VENKATESH on CKD stage 3 Plan of Treatment: Follow-up with primary care provider as needed Take all medications as prescribed Assessment: See discharge summary
[2024-04-08] MEDS: Sodium Hypochlorite 0.125% 473 ML SOLUTION 1 APPL TOPICAL (14:13)
--- NOTE | 2024-04-08 14:29 | PCN2_ITS ---
Brief Operative Note Date of procedure: 04/08/24 Pre-op diagnosis: Needs house calls nurse practitioner iv access for antibiotics. CKD Post-op diagnosis: same Procedure: Right IJ dual lumen 24 cm Guevara placed using US and FL. Tip at cavoatrial junction. Ok for use. Anesthesia: local
--- NOTE | 2024-04-08 15:24 | MHC.CM.PN ---
Patient is discharged today. She will return to [facility] via BLS. Patient will require IV ABX via Guevara @ [facility]. All discharge information has been sent to the facility. 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 Transport is delayed 1 hour. [facility] has been notified of the time change for transportation.
[2024-04-08] MEDS: cefTRIAXone sodium 1 GM VIAL IVPUSH (15:43)
[2024-04-08 16:03] LABS: Glucose, Whole Blood 99 mg/dL (60-115)
== END 2024-04-08 17:39 | DRG 344 ==
LOC: HO.ED 14:05 → HO.EDOVER 15:46 → HO.S3 19:06
PROVIDERS: Physician Assistant; Physician Assistant Medical; Physician Assistant Surgical; Radiology Vascular & Interventional Radiology; Admitting Provider Nurse Practitioner Acute Care; Emergency Provider Emergency Medicine Emergency Medical Services; PCP Family Medicine; Visit Provider Nurse Practitioner Acute Care
DX: E11.69 Type 2 diabetes mellitus with other specified complication (principal); M86.671 Other chronic osteomyelitis, right ankle and foot; E11.610 Type 2 diabetes mellitus with diabetic neuropathic arthropathy; N17.9 Acute kidney failure, unspecified; R78.81 Bacteremia; E11.22 Type 2 diabetes mellitus with diabetic chronic kidney disease; E11.621 Type 2 diabetes mellitus with foot ulcer; L97.419 Non-pressure chronic ulcer of right heel and midfoot with unspecified severity; L03.115 Cellulitis of right lower limb; D63.1 Anemia in chronic kidney disease; Z68.44 Body mass index [BMI] 60.0-69.9, adult; L02.611 Cutaneous abscess of right foot; E11.40 Type 2 diabetes mellitus with diabetic neuropathy, unspecified; E78.5 Hyperlipidemia, unspecified; K21.9 Gastro-esophageal reflux disease without esophagitis; E11.628 Type 2 diabetes mellitus with other skin complications; E66.01 Morbid (severe) obesity due to excess calories; Z71.3 Dietary counseling and surveillance; I12.9 Hypertensive chronic kidney disease with stage 1 through stage 4 chronic kidney disease, or unspecified chronic kidney disease; N18.30 Chronic kidney disease, stage 3 unspecified; Z87.891 Personal history of nicotine dependence; Z79.4 Long term (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 insulin; Z79.899 Other long term (current) drug therapy
CPT/HCPCS: 36415; 36558; 73630; 73720; 80048; 80053; 80076; 80202; 81001; 82565; 82947; 83036; 83605; 83735; 85025; 85027; 85610; 85652; 86140; 87040; 87076; 87077; 87086; 87185; 87186; 87205; 93971; 99285; A9585; C1751; C1769; J0696; J1644; J2003; J2405; J2543; J3370; J7120

== ENCOUNTER → 2024-04-02 09:55 | Outpatient (BNV) | payer BC, SELFPAY | PROVIDERS: Emergency Provider Emergency Medicine Emergency Medical Services; PCP Family Medicine; Visit Provider Radiology Diagnostic Radiology | DX: M14.671 Charcot's joint, right ankle and foot (principal); L97.519 Non-pressure chronic ulcer of other part of right foot with unspecified severity | CPT/HCPCS: 73630; 73720 ==

== ENCOUNTER 2024-04-02 15:42 | Outpatient (BNV) | payer BC, SELFPAY | END 2024-04-08 14:00 | PROVIDERS: Admitting Provider Nurse Practitioner Acute Care; Emergency Provider Emergency Medicine Emergency Medical Services; PCP Family Medicine; Visit Provider Physician Assistant Surgical | DX: E11.628 Type 2 diabetes mellitus with other skin complications (principal); L08.9 Local infection of the skin and subcutaneous tissue, unspecified; M86.9 Osteomyelitis, unspecified | CPT/HCPCS: 36558; 76937 ==

== ENCOUNTER → 2024-04-02 15:42 | Outpatient (BNV) | payer BC, SELFPAY | PROVIDERS: Admitting Provider Nurse Practitioner Acute Care; Emergency Provider Emergency Medicine Emergency Medical Services; PCP Family Medicine; Visit Provider Physician Assistant Surgical | DX: E11.628 Type 2 diabetes mellitus with other skin complications (principal); L08.9 Local infection of the skin and subcutaneous tissue, unspecified | CPT/HCPCS: 99222 ==

== ENCOUNTER → 2024-04-02 15:42 | Outpatient (BNV) | payer BC, SELFPAY | PROVIDERS: Admitting Provider Nurse Practitioner Acute Care; Emergency Provider Emergency Medicine Emergency Medical Services; PCP Family Medicine; Visit Provider Nurse Practitioner Acute Care | DX: E11.628 Type 2 diabetes mellitus with other skin complications (principal); L08.9 Local infection of the skin and subcutaneous tissue, unspecified; M86.9 Osteomyelitis, unspecified | CPT/HCPCS: 99222; 99232; 99233; 99499 ==

== ENCOUNTER → 2024-04-02 15:42 | Outpatient (BNV) | payer BC, SELFPAY | PROVIDERS: Admitting Provider Nurse Practitioner Acute Care; Emergency Provider Emergency Medicine Emergency Medical Services; PCP Family Medicine; Visit Provider Internal Medicine | DX: E11.628 Type 2 diabetes mellitus with other skin complications (principal); L08.9 Local infection of the skin and subcutaneous tissue, unspecified | CPT/HCPCS: 99222 ==

== ENCOUNTER 2024-04-19 11:04 | Outpatient (AMB) | payer BC, SELFPAY ==
--- NOTE | 2024-04-19 11:08 | MHC.OFFVIS ---
Vital Signs 04/19/24 11:15 BP 140/64 H Blood Pressure Location Rt brachial Position Sitting Pulse 69 Pulse Oximetry (%) 97 Oxygen Delivery Method Room Air Intake Visit Reasons: NTMNG Intake Note: Patient present today for NTMNG office visit. Accompanied by: Daughter Allergies amlodipine [From Norvasc] Allergy (Mild, Verified 04/19/24 11:11) Swelling Penicillins Allergy (Mild, Verified 04/19/24 11:11) Rash erythromycin base Allergy (Unknown, Verified 04/19/24 11:11) Unknown enoxaparin [From Lovenox] Allergy (Verified 04/19/24 11:11) Vomiting heparin Allergy (Verified 04/19/24 11:11) Vomiting clindamycin [CLINDAMYCIN] Adverse Reaction (Intermediate, Verified 04/19/24 11:11) Diarrhea NephrAmine Allergy (Unknown, Uncoded 02/23/24 10:06) Swelling Medication List - Last Reconciled 04/19/24 by Daisy Salmon MD acetaminophen 650 mg NV Q4H PRN acetaminophen 650 mg PO Q4H PRN bisacodyl 10 mg NV DAILY PRN blood sugar diagnostic (FreeStyle Lite Strips) As directed three times a day blood-glucose meter (FreeStyle Lite Meter kit) As directed ceftriaxone 1 g IVPUSH Q24H cholecalciferol (vitamin D3) (Vitamin D3) 50 mcg PO DAILY ferrous sulfate 325 mg PO DAILY flash glucose sensor (FreeStyle Amber 14 Day Sensor kit) As directed glucagon HCl (Glucagon (HCl) Emergency Kit) 1 mg subcut Q20M PRN guaifenesin 200 mg PO Q4H PRN hydralazine 50 mg See Protocol PO Q6H insulin glargine (Lantus U-100 Insulin) 20 units (0.2 mL) subcut BEDTIME insulin lispro (Admelog U-100 Insulin lispro) See Protocol units subcut QIDACHS lancets (FreeStyle Lancets) Three times a day loratadine 10 mg PO DAILY losartan 100 mg See Protocol PO DAILY magnesium hydroxide (Milk of Magnesia) 30 mL PO DAILY PRN naloxone 4 mg/actuation (Narcan) 4 mg intranasal Q3M PRN omeprazole 40 mg PO DAILY@0630 ondansetron HCl 4 mg PO Q6H PRN pen needle, diabetic (BD Adela 2nd Gen Pen Needle) As directed 5 x/day rosuvastatin 5 mg PO DAILY sennosides (senna) 8.6 mg PO DAILY PRN sertraline 50 mg PO DAILY sodium phosphates 19-7 gram/118 mL (Fleet Enema) 118 mL NV DAILY PRN HPI Comments Details: 63-year-old female here today for evaluation of multinodular goiter. Here with daughter Jose Luis. Otherwise medical history significnt for HTN, DM, HLD, CKD, diabetic foot infection, charcot foot, depression. Currently in short term rehab for diabetic foot infection/osteomyelitis. Since summer/fall 2023, in and out of the hospital. 07/24/2023: Cervical spine CT done for fall showed a large left thyroid nodule measuring 7.5 X 6.5 X 12 cm, with a displacement of the trachea to the right and mass. 09/27/2023: Ultrasound of the thyroid, I reviewed the images myself which showed right-sided subcentimeter nodules. A left dominant nodule measuring 11.5 X 4.9 X 7.8 cm, completely solid, isoechoic nodule occupying all of the left lobe noted. 10/19/2023: Thyroid uptake and scan, images reviewed showed an asymmetrically enlarged left lobe , with a warm nodule in the superior aspect of the left lobe. 11/23/2023: FNA of the left dominant nodule came back as AUS with macro and micro follicles, with a small population of follicular cells with mild nuclear enlargement and irregularity and intranuclear inclusions. Afirma testing came back benign (risk of malignancy 4%). Known about the goiter for decades. Daughter mentiones this has noticeably increased in size over the past 2 years. Diagnosed in her 30s . Had an FNA at that time too which was benign. Hasnt followed with them for years. In and out of the hospital due to multiple issues which is why this was not addressed in the last few months. She has had recurrent falls, due to lightheadedness/dizziness. Patient currently denies heat or cold intolerance, palpitation, , mood changes, low energy, changes in appearance of eyes or vision changes, increased diaphoresis or dry skin. Lost some weight recently in the rehab. Reports anxiety but controlled and chronic mild tremors. Gets loose stools because of antibiotics. Does have hair loss. ? Patient denies any difficulty swallowing, pain on swallowing or voice changes or difficulty breathing. Patient denies any history of childhood neck radiation. Denies having ever used lithium, amiodarone or biotin supplements. Patient denies any family history of thyroid cancer . Father had Graves disease. 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 Physical exam General: sitting comfortably in no acute distress HEENT: normocephalic/atraumatic Neck: large left sided thyroid mass, right thyroid lobe also palpably enlarged, Pembertons sign negative Cardiac: normal heart sounds Pulm: normal breath sounds B/L, no added breath sounds Abd: not distended, no tenderness Extremities: no edema, Laboratory Tests 12/12/17 11/10/18 02/27/20 08:20 06:26 10:55 TSH 0.61 TSH 3rd Generation 0.44 1.10 Free T4 Free T3 12/16/21 09/27/23 09:59 12:14 TSH 0.66 0.80 TSH 3rd Generation Free T4 0.95 Free T3 3.3 NM THYROID UPTAKE AND SCAN 10/19/23 CLINICAL INFORMATION: Thyroid mass. COMPARISON: Thyroid ultrasound on 09/27/2023. TECHNIQUE: Following the oral administration of 284 microcuries of I-123 sodium iodide, thyroid uptake was performed and expressed as a percentage of the administrated dose. Gamma scintillation camera images of the thyroid in the anterior and right and left anterior oblique views were obtained using a pinhole collimator following the administration of 10 mCi Tc-99m pertechnetate. The radiotracer was injected through right antecubital superficial vein without complications. FINDINGS: The uptake is 3.3% at 3 hours and 17.6% at 24 hours (Normal radioiodine uptake at 4 to 6 hours is about 5-15% and at 24 hours is 10% to 30%). The radioiodine uptake is within normal limits. The radiopertechnetate thyroid scintigram demonstrates the thyroid gland is normal in position. The right lobe of the thyroid gland appears normal in size and shape. The left lobe of the gland is asymmetrically markedly enlarged, concordant with prior ultrasound study dated 09/27/2023. There is heterogenous radiotracer distribution present throughout the entire gland with subtle focal subcentimeter area of warm nodule at the superior medial aspect of the left lobe. The trapping function appears normal. The I-123 images shows relative ill-defined photopenia at the mid to inferior pole of the abnormal enlarged left lobe of the gland consistent with a discordant nodule in this region. NM/NM thyroid w uptake IMPRESSION: 1. The radioiodine uptake is within normal limits. 2. Morphologically abnormal thyroid gland showing disproportionately enlarged heterogenous left lobe associated with a large ill-defined discordant nodule at mid to inferior pole of the left lobe. Ultrasound-guided biopsy of this nodule is recommended for histopathologic correlation. 3. Incidental note is also made of a subcentimeter warm nodule at superior medial aspect of the left lobe of the gland. Electronically signed by: Kevin Morales MD 10/21/2023 12:21 PM EDT RP US THYROID 09/27/23 CLINICAL INFORMATION: Thyroid mass. COMPARISON: Ultrasound thyroid 05/09/2013. TECHNIQUE: Linear transducer grayscale and color Doppler examination with attention to the region of the thyroid. FINDINGS: SIZE: Measurements of the thyroid lobes and nodules are given in sagittal, anteroposterior and transverse dimensions respectively. Right Thyroid Lobe: 4.3 x 1.4 x 2.1 cm, volume 6.5 mL. Parenchyma: The gland echotexture is homogeneous. Thyroid vascularity is normal. Left Thyroid Lobe: 11.5 x 4.9 x 7.8 cm, volume 231.8 mL. Parenchyma: The gland echotexture is heterogeneous. Thyroid vascularity is normal. Isthmus: 0.1 cm in maximum AP dimension. Estimated total number of nodules greater than or equal to 1 cm: 1. Extrusion Supervisor nodules are described as follows: 1. Location: Right lower pole. Size: 0.5 x 0.3 x 0.3 cm, volume 0.03 mL. Nodule characteristics: Composition: Mixed cystic and solid (1). Echogenicity: Isoechoic (1). Shape: Not taller than wide (0). Margins: Smooth (0). Echogenic Foci: None (0). ACR TI-RADS total points: 2 ACR TI-RADS category: 2 2. Location: Right mid. Size: 0.5 x 0.4 x 0.5 cm, volume 0.05 mL. Nodule characteristics: Composition: Mixed cystic and solid (1). Echogenicity: Isoechoic (1). Shape: Not taller than wide (0). Margins: Smooth (0). Echogenic Foci: None (0). ACR TI-RADS total points: 2 ACR TI-RADS category: 2 3. Location: Right mid. Size: 0.5 x 0.5 x 0.6 cm, volume 0.07 mL. Nodule characteristics: Composition: Solid/almost completely solid (2). Echogenicity: Isoechoic (1). Shape: Not taller than wide (0). Margins: Smooth (0). Echogenic Foci: None (0). ACR TI-RADS total points: 3 ACR TI-RADS category: 3 4. Location: Left. Size: 11.5 x 4.9 x 7.8 cm, volume 231.8 mL. Nodule characteristics: Composition: Solid/almost completely solid (2). Echogenicity: Cannot be determined (1). Shape: Not taller than wide (0). Margins: Smooth (0). Echogenic Foci: None (0). ACR TI-RADS total points: 3 ACR TI-RADS category: 3 NODES: No lymphadenopathy is seen in the tissue surrounding the thyroid gland. US/US thyroid IMPRESSION: An 11.5 cm left thyroid lobe TR 3 nodule meets ACR biopsy criteria and is amenable to ultrasound guided biopsy, if clinically indicated and not already performed. ACR TI-RADS RECOMMENDATION REFERENCE: Ultrasound-guided fine-needle aspiration, followup ultrasound, no further follow up. * TR1 (0 point) and TR2 (2 points): No FNA or follow up. * TR3 (3 points): FNA if more than or equal to 2.5 cm in maximum dimension, followup ultrasound in 1, 3 and 5 years if 1.5 to 2.4 cm in maximum dimension. * TR4 (4-6 points): FNA if more than or equal to 1.5 cm in maximum dimension, followup ultrasound in 1, 2, 3 and 5 years if 1 to 1.4 cm in maximum dimension. * TR5 (more than or equal to 7 points): FNA if more than or equal to 1 cm in maximum dimension, followup ultrasound every year for 5 years if 0.5 to 0.9 cm in maximum dimension. * TR3, TR4 or TR5 nodules that are below the size threshold for followup receive no follow up. Electronically signed by: Jesus Mejia MD 10/23/2023 08:[address] CERVICAL SPINE WITHOUT CONTRAST 07/24/23 CLINICAL INFORMATION: Fall COMPARISON: None available. TECHNIQUE: Axial images through the cervical spine without contrast. Sagittal and coronal reconstructions. This CT examination was performed using dose optimization techniques as appropriate, variously including the following: *Automated exposure control *Adjustment of mA and/or kV according to patient size (this includes techniques or standardized protocols for targeted exams where dose is matched to indication/reason for exam; i.e. extremities or head) *Use of iterative reconstruction technique DLP: 332 mGy-cm FINDINGS: Curvature of the lower cervical and upper thoracic spine to the right. Bone alignment otherwise normal. No fracture or dislocation. Normal disc spaces. Large left thyroid nodule/goiter and displacement of the trachea to the right and mass effect. This measures 7.5 x 6.5 x 12 cm. Follow-up thyroid ultrasound recommended. Visualized lung apices are clear. CT/CT cervical spine wo IV con IMPRESSION: No fracture or dislocation. Large left thyroid nodule/goiter. Follow-up thyroid ultrasound recommended. Fleischner guidelines were followed. 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 Diabetes type 2, uncontrolled Surgical History S/P thyroid biopsy Hx of cataract extraction Hx of LASIK Hx of eye surgery Hx of foot surgery Family History Father COPD (chronic obstructive pulmonary disease) Diabetes Mother Heart disease Social History Household Members: None Housing: [facility] Are you a primary complex care nurse to a significant other at home: No Do you presently have visiting nurse or other home services: Yes Alcohol intake: current Alcohol intake frequency: does not drink Patient Tobacco Use Status: Former Tobacco user Years Smoked: 20 years e-Cigarette/Vaping Use: Never Used Advance Directives Date on File: 12/04/23 service: No Current occupational status: employed Physical Exam Vital Signs: Last Vital Signs Pulse 69 04/19/24 11:15 BP 140/64 H 04/19/24 11:15 Pulse Ox 97 04/19/24 11:15 Oxygen Delivery Method Room Air 04/19/24 11:15 Assessment & Plan Assessment & Plan (1) Non-toxic multinodular goiter: Code(s): E04.2 - Nontoxic multinodular goiter Category: Medical Plan: 63-year-old female here today for initial evaluation of nontoxic multinodular goiter, she has had a goiter/thyroid nodules since her 30s, but has not followed up in recent years, most recent thyroid ultrasound from September 2023 showing a large left dominant 12 cm nodule which is solid, and occupying all of the left lobe of the thyroid. Other subcentimeter right-sided nodules noted. She reportedly has had a biopsy of this again in her 30s of the time that it was diagnosed which was benign per patient. A preceding cervical spine CT from July 2023 also showed displacement of the trachea to the right and mass effect. Surprisingly she does not have any compressive symptoms clinically, and exam today showed a negative [place] sign. Blood work from September 2023 showed normal thyroid function. We will repeat this now since it has been some time. She underwent FNA of the left dominant nodule in November 2023 which came back as AUS, Queen category 3 with some nuclear atypia, Afirma testing came back benign (risk of malignancy 4%). However I discussed with the patient that when nodules are so big in size, FNA testing is less reliable as we can not possibly have obtain a sample from all parts of the nodule. In addition to that given the size of the mass is quite large with tracheal deviation and mass effect, she needs surgical evaluation for left lobectomy versus total thyroidectomy. I explained to her need for requiring levothyroxine replacement post surgery and low risk of complications such as parathyroid stenting with the risk of hypocalcemia, injury to recurrent laryngeal nerves, risk of bleeding, infection. I explained to her that her surgeon will explain these to her in much more detail. I am putting in a referral for Dr. Rene Dia at [facility] for evaluation for lobectomy/total thyroidectomy. She is on vitamin D 1000 units daily. No recent vitamin-D levels in the chart. We will check levels. Labs recently from March 2024 showed a low calcium level of 8.3, unclear etiology, we will repeat levels. She is currently at a rehab, apparently the plan is short-term rehab while she heals from her diabetic foot infection. She has had a long history of Charcot foot, and now has osteomyelitis, currently on antibiotics. I described to her importance of well-controlled diabetes and overall control of infection before she can proceed with any surgery. Looks like primary care provider manages diabetes, she is on insulin. Plan: -referral placed to Dr. Rene Dia at [facility] for evaluation for left lobectomy/total thyroidectomy -do TSH, free T4, calcium, albumin, vitamin-D, BMP levels -continue vitamin-D 1000 units daily -follow up in 10 weeks, I told her I would like to regroup once she has had her surgical evaluation with Dr. Rene Dia, if her evaluation is not yet done, reschedule this appointment to after she has seen Dr. Rene Dia. Plan I spent 60 minutes in reviewing the record, seeing the patient and documenting in the medical record. Orders: Orders Thyroid Stimulating Hormone Today E04.2 - Nontoxic multinodular goiter Free T4 (Free Thyroxine) Today E04.2 - Nontoxic multinodular goiter Albumin Level Today E04.2 - Nontoxic multinodular goiter Calcium Today E04.2 - Nontoxic multinodular goiter Calcium, Ionized Today E04.2 - Nontoxic multinodular goiter Vitamin D 25-OH Total Today E04.2 - Nontoxic multinodular goiter Basic Metabolic Panel Today E04.2 - Nontoxic multinodular goiter Referrals General Surgery Referral E04.2 - Nontoxic multinodular goiter Patient Instructions: We are referring you for surgical evaluation to [facility] to Dr. Rene Dia's office, if you do not hear from anyone within the next week or so, please either call our office or their office to check on the status of the referral. Please do blood work. Coding Level of Care Code New Pt Level 5 (80874) Diagnoses Non-toxic multinodular goiter E04.2 Time Spent (min) 60
[2024-04-19 11:15] VITALS: BP 140/64; PULSE 69; O2SAT 97
--- OUTSIDE RECORDS SUMMARY | 2024-04-19 12:49 | XMS_ITS | Clinical Summary ---
Author Organization [address] Address [address] [place] [id number] Care Team Providers Care Rope Making Machine Operator Name Role Phone Kristin Bellamy MD Primary Care Provider [phone] Allergies Active Allergy Reactions Criticality Noted Date [...] on file [employer] on file Care Teams Rope Making Machine Operator Relationship Specialty Start Date End Date Kristin Bellamy MD [address] [phone] PCP - General Internal Medicine 07/31/17
--- OUTSIDE RECORDS SUMMARY | 2024-04-19 12:49 | XMS_ITS ---
Author Organization [facility] Address [address] [facility] [place] [address] Care Team Providers Care Chief Specialist Leed Name Role Phone Kristin Bellamy Primary Care Provider Unavailab Neri Barragan Unavailable [phone] Encounters Encounter [facility] Date [facility] [address] [facility] Neri Tinoco Plan Of Treatment No Information Progress Notes * Olga KATDOB:1960 (63 yo F)Acc No.[id number]:11/30/2023 Progress Note Patient:Jaden RENNERradhika Provider:?Neri Tinoco DPM :1960???Age:63 Y???Sex:Female D ate:11/30/2023 Address:[address] [id number] Pcp:Kristin Bellamy Subjective: * Chief Complaints: * ??? * Medical History:? Objective: * Vitals:? Assessment: Plan: * Treatment: * Images: * The named appointment provid er may or may not be the originator of this progress note, and it is not deemed complete until electronically signed by the appointment provider. Sign off status: Pending * Provider:?Neri Tinoco DPM Date:?2023 Generated for Dee franco/Juan/eTransmitting on:?04/19/2024 12:49 PM EST
--- OUTSIDE RECORDS SUMMARY | 2024-04-19 12:49 | XMS_ITS ---
Author Organization [facility] Address [address] [place] [address] Care Team Providers Care Aerial Photographer Name Role Phone Cheyenneelaine Kristin Primary Care Provider Unavailab Neri Barragan Unavailable [phone] REASON FOR VISIT Referral Needed Encounters Encounter Location Date Provider Diagnosis [facility] [address] [place] [address] 10/07/2023 Neri Tinoco Plan Of Treatment No Information Progress Notes * Olga KATDOB:1960 (63 yo F)Acc No.[id number]:10/07/2023 Patient:?Olga Kat :1960???Age:63 Y???Sex:Female Address[address] [place], [address] * true * Date:? Generated for Printi ng/Juan/eTransmitting on:?04/19/2024 12:49 PM EST
--- OUTSIDE RECORDS SUMMARY | 2024-04-19 12:49 | XMS_ITS | Encounter Summary ---
Author Organization [facility] Address [address] [place] [phone] Care Team Providers Care Branch Customer Service Representative Name Role Phone Kristin Bellamy MD Primary Care Provider [phone] Encounter Details Date Type Department Care Team (Late st Contact Info) Description 02/27/2024 Lab Requisition [facility] - Main Lab 299 [facility] [place] [address] Gilson Davidson MD 38 [facility] [address] [place], [address] Non-pressure chronic ulcer of unspecified part [...] C-reactive protein (02/28/2024 6:00 AM EST) Pathologist [facility] C-Reactive Protein 0.44 <=0.50 mg/dL LAB CHEMISTRY METHOD 02/28/2024 8:44 AM EST [facility] Blood Venous blood specimen / Unknown Venipuncture / Unknown 02/28/2024 6:00 AM EST 02/28/2024 7:59 AM EST us Gilson Davidson MD LAB BLOOD ORDERABLES Final Resul t [facility] [address] [place] [address], * (ABNORMAL) Sedimentation rate (02/28/2024 6:00 AM EST) Sed Rate 51(H) 0 - 30 mm/hr LAB HEMETOLOGY METHOD 02/28/2024 8:40 AM EST [facility] Blood Venous blood specimen / Unknown Venipuncture / Unknown 02/28/2024 6:00 AM EST 02/28/2024 7:59 AM EST us Gilson Davidson MD LAB BLOOD ORDERABLES Final Resul t [facility] [address] [place] [address], * (ABNORMAL) Basic metabolic panel (02/28/2024 6:00 AM EST) Sodium 140 133 - 145 mmol/L LAB CHEMISTRY METHOD 02/28/2024 8:42 AM [facility] Potassium 4.6 3.5 - 5.5 mmol/L LAB CHEMISTRY METHOD 02/28/2024 8:42 AM [facility] Chloride 107 96 - 110 mmol/L LAB CHEMISTRY METHOD 02/28/2024 8:42 AM [facility] CO2 28 21 - 32 mmol/L LAB CHEMISTRY METHOD 02/28/2024 8:42 AM [facility] Anion Gap 5 3 - 11 LAB CHEMISTRY METHOD 02/28/2024 8:42 AM [facility] Glucose 99 70 - 100 mg/dL LAB CHEMISTRY METHOD 02/28/2024 8:42 AM [facility] BUN 28(H) 5 - 25 mg/dL LAB CHEMISTRY METHOD 02/28/2024 8:42 AM [facility] Creatinine 1.39(H) 0.50 - 1.10 mg/dL LAB CHEMISTRY METHOD 02/28/2024 8:42 AM [facility] eGFR 43(L) >=60 mL/min/1. 73m2 LAB CHEMISTRY METHOD 02/28/2024 8:42 AM [facility] Comment:Calculation based on the??Chronic Kidney Disease Epidemiology Collaboration (CKD-EPI) equation refit??without adjustment for race. BUN/Creatinine Ratio 20.1 LAB CHEMISTRY METHOD 02/28/2024 8:42 AM [facility] Calcium 8.9 8.5 - 10.5 mg/dL LAB CHEMISTRY METHOD 02/28/2024 8:42 AM [facility] Blood Venous blood specimen / Unknown Venipuncture / Unknown 02/28/2024 6:00 AM EST 02/28/2024 7:59 AM EST us Gilson Davidson MD LAB BLOOD ORDERABLES Final Resul t [facility] [address] [place] [address], * (ABNORMAL) Complete blood count (02/28/2024 6:00 AM EST) WBC 6.7 4.8 - 10.8 K/mcL LAB HEMETOLOGY METHOD 02/28/2024 8:24 AM [facility] RBC 3.90 3.80 - 4.80 M/[facility] LAB HEMETOLOGY METHOD 02/28/2024 8:24 AM [facility] Hemoglobin 10.7(L) 11.5 - 16.0 g/dL LAB HEMETOLOGY METHOD 02/28/2024 8:24 AM [facility] Hematocrit 33.6(L) 35.0 - 47.0 % LAB HEMETOLOGY METHOD 02/28/2024 8:24 AM [facility] MCV 86.8 79.0 - 98.0 FL LAB HEMETOLOGY METHOD 02/28/2024 8:24 AM [facility] MCH 27.6 27.0 - 32.0 pcg LAB HEMETOLOGY METHOD 02/28/2024 8:24 AM [facility] MCHC 31.8(L) 32.0 - 37.0 g/dL LAB HEMETOLOGY METHOD 02/28/2024 8:24 AM EST [facility] RDW 14.3 11.0 - 15.0 % LAB HEMETOLOGY METHOD 02/28/2024 8:24 AM [facility] Platelets 411(H) 130 - 400 K/mcL LAB HEMETOLOGY METHOD 02/28/2024 8:24 AM [facility] MPV 10.0 7.0 - 11.0 FL LAB HEMETOLOGY METHOD 02/28/2024 8:24 AM [facility] NRBC 0.0 <1.0 % LAB HEMETOLOGY METHOD 02/28/2024 8:24 AM [facility] NRBC Absolute 0.00 <0.10 K/mcL LAB HEMETOLOGY METHOD 02/28/2024 8:24 AM [facility] Blood Venous blood specimen / Unknown Venipuncture / Unknown 02/28/2024 6:00 AM EST 02/28/2024 7:59 AM EST us Gilson Davidson MD LAB BLOOD ORDERABLES Final Resul t [facility] [address] [place] [address], documented in this encounter Visit Diagnoses Diagnosis Non-pressure chronic ulcer of unspecified part of left lower leg with unspecified severity (CMS/HCC) Small cell b-cell lymphoma, spleen (CMS/HCC) Other toxic encephalopathy Type 2 diabetes mellitus without complications (CMS/HCC) Essential (primary) hypertension Unspecified essential hypertension documented in this encounter Care Teams Branch Customer Service Representative Relationship Specialty Start Date End Date Kristin Bellamy MD [facility] [address] PCP - General Internal Medicine 11/29/19 documented as of this encounter
--- OUTSIDE RECORDS SUMMARY | 2024-04-19 12:50 | XMS_ITS | Encounter Summary ---
Author Organization [facility] Address [address] [place] [address] Care Team Providers Care Food Technician Name Role Phone Kristin Bellamy MD Primary Care Provider [phone] Encounter Details Date Type Department Care Team (Late st Contact Info) Description 03/19/2024 Lab Requisition [facility] - Main Lab 299 [facility] [place] [address] Gilson Davidson MD 38 [facility] [address] [place], [address] Type 2 diabetes mellitus without complications [...] Sedimentation rate (03/20/2024 6:04 AM EST) Pathologist [facility] Sed Rate 53(H) 0 - 30 mm/hr LAB HEMETOLOGY METHOD 03/20/2024 11:21 AM EST [facility] Blood Venous blood specimen / Unknown Venipuncture / Unknown 03/20/2024 6:04 AM EST 03/20/2024 10:37 AM EST Gilson Davidson MD LAB BLOOD ORDERABLES Final Resul t Performing Organization Address [facility]/ZIP Co de Phone Number [facility] [address] [place] [address], * (ABNORMAL) C-reactive protein (03/20/2024 6:04 AM EST) [facility] C-Reactive Protein 1.78(H) <=0.50 mg/dL LAB CHEMISTRY METHOD 03/20/2024 12:22 PM EST [facility] Blood Venous blood specimen / Unknown Venipuncture / Unknown 03/20/2024 6:04 AM EST 03/20/2024 10:37 AM EST Gilson Davidson MD LAB BLOOD ORDERABLES Final Resul t Performing Organization Address City/[facility]/ZIP Co de Phone Number [facility] [address] [place] [address], [place] [phone] * (ABNORMAL) Basic metabolic panel (03/20/2024 6:04 AM EST) [facility] Sodium 137 133 - 145 mmol/L LAB CHEMISTRY METHOD 03/20/2024 12:22 PM EST [facility] Potassium 4.8 3.5 - 5.5 mmol/L LAB CHEMISTRY METHOD 03/20/2024 12:22 PM [facility] Comment:Hemolysis present Chloride 105 96 - 110 mmol/L LAB CHEMISTRY METHOD 03/20/2024 12:22 PM [facility] CO2 26 21 - 32 mmol/L LAB CHEMISTRY METHOD 03/20/2024 12:22 PM [facility] Anion Gap 6 3 - 11 LAB CHEMISTRY METHOD 03/20/2024 12:22 PM [facility] Glucose 104(H) 70 - 100 mg/dL LAB CHEMISTRY METHOD 03/20/2024 12:22 PM [facility] BUN 27(H) 5 - 25 mg/dL LAB CHEMISTRY METHOD 03/20/2024 12:22 PM [facility] Creatinine 1.22(H) 0.50 - 1.10 mg/dL LAB CHEMISTRY METHOD 03/20/2024 12:22 PM [facility] eGFR 50(L) >=60 mL/min/1. 73m2 LAB CHEMISTRY METHOD 03/20/2024 12:22 PM [facility] Comment:Calculation based on the??Chronic Kidney Disease Epidemiology Collaboration (CKD-EPI) equation refit??without adjustment for race. BUN/Creatinine Ratio 22.1 LAB CHEMISTRY METHOD 03/20/2024 12:22 PM [facility] Calcium 9.5 8.5 - 10.5 mg/dL LAB CHEMISTRY METHOD 03/20/2024 12:22 PM [facility] Blood Venous blood specimen / Unknown Venipuncture / Unknown 03/20/2024 6:04 AM EST 03/20/2024 10:37 AM EST us Gilson Davidson MD LAB BLOOD ORDERABLES Final Resul t [facility] [address] [place] [address], * (ABNORMAL) Complete blood count (03/20/2024 6:04 AM EST) [facility] Signature WBC 9.3 4.8 - 10.8 K/mcL LAB HEMETOLOGY METHOD 03/20/2024 11:05 AM [facility] RBC 4.50 3.80 - 4.80 M/mcL LAB HEMETOLOGY METHOD 03/20/2024 11:05 AM [facility] Hemoglobin 12.1 11.5 - 16.0 g/dL LAB HEMETOLOGY METHOD 03/20/2024 11:05 AM [facility] Hematocrit 38.6 35.0 - 47.0 % LAB HEMETOLOGY METHOD 03/20/2024 11:05 AM [facility] MCV 86.5 79.0 - 98.0 FL LAB HEMETOLOGY METHOD 03/20/2024 11:05 AM [facility] MCH 27.1 27.0 - 32.0 pcg LAB HEMETOLOGY METHOD 03/20/2024 11:05 AM [facility] MCHC 31.3(L) 32.0 - 37.0 g/dL LAB HEMETOLOGY METHOD 03/20/2024 11:05 AM [facility] RDW 13.9 11.0 - 15.0 % LAB HEMETOLOGY METHOD 03/20/2024 11:05 AM [facility] Platelets 453(H) 130 - 400 K/mcL LAB HEMETOLOGY METHOD 03/20/2024 11:05 AM [facility] MPV 10.4 7.0 - 11.0 FL LAB HEMETOLOGY METHOD 03/20/2024 11:05 AM [facility] NRBC 0.0 <1.0 % LAB HEMETOLOGY METHOD 03/20/2024 11:05 AM [facility] NRBC Absolute 0.00 <0.10 K/mcL LAB HEMETOLOGY METHOD 03/20/2024 11:05 AM EST [facility] Blood Venous blood specimen / Unknown Venipuncture / Unknown 03/20/2024 6:04 AM EST 03/20/2024 10:37 AM EST us Gilson Davidson MD LAB BLOOD ORDERABLES Final Resul t [facility] [address] [place] [address], documented in this encounter Visit Diagnoses Diagnosis Type 2 diabetes mellitus without complications (CMS/HCC) Essential (primary) hypertension Unspecified essential hypertension documented in this encounter Care Teams Food Technician Relationship Specialty Start Date End Date Kristin Bellamy MD 1221 [facility] [address] [place], [place] PCP - General Internal Medicine 11/29/19 documented as of this encounter
--- OUTSIDE RECORDS SUMMARY | 2024-04-19 12:50 | XMS_ITS | Encounter Summary ---
Author Organization [facility] Address [address] [place] [phone] Care Team Providers Care Fly Fishing Guide Name Role Phone Kristin Bellamy MD Primary Care Provider [phone] Encounter Details Date Type Department Care Team (Late st Contact Info) Description 01/09/[address] [facility] - Main Lab [address] [facility] [place] [address] Gilson Davidson MD 38 [facility] [address] [place], [address] Type 2 diabetes mellitus without complications [...] Sedimentation rate (01/10/2024 7:05 AM EST) Pathologist [facility] Sed Rate 80(H) 0 - 30 mm/hr LAB HEMETOLOGY METHOD 01/10/2024 10:22 AM EST [facility] Blood Venous blood specimen / Unknown Venipuncture / Unknown 01/10/2024 7:05 AM EST 01/10/2024 10:05 AM EST us Gilson Davidson MD LAB BLOOD ORDERABLES Final Resul t Performing Organization Address [facility]/ZIP Co de Phone Number [facility] [address] [place] [address], * (ABNORMAL) C-reactive protein (01/10/2024 7:05 AM EST) [facility] C-Reactive Protein 2.18(H) <=0.50 mg/dL LAB CHEMISTRY METHOD 01/10/2024 10:50 AM EST [facility] Blood Venous blood specimen / Unknown Venipuncture / Unknown 01/10/2024 7:05 AM EST 01/10/2024 9:58 AM EST us Gilson Davidson MD LAB BLOOD ORDERABLES Final Resul t [facility] [address] [place] [address], * (ABNORMAL) Basic metabolic panel (01/10/2024 7:05 AM EST) [facility] Sodium 139 133 - 145 mmol/L LAB CHEMISTRY METHOD 01/10/2024 10:53 AM EST [facility] Potassium 4.7 3.5 - 5.5 mmol/L LAB CHEMISTRY METHOD 01/10/2024 10:53 AM [facility] Chloride 106 96 - 110 mmol/L LAB CHEMISTRY METHOD 01/10/2024 10:53 AM [facility] CO2 24 21 - 32 mmol/L LAB CHEMISTRY METHOD 01/10/2024 10:53 AM [facility] Anion Gap 9 3 - 11 LAB CHEMISTRY METHOD 01/10/2024 10:53 AM [facility] Glucose 155(H) 70 - 100 mg/dL LAB CHEMISTRY METHOD 01/10/2024 10:53 AM [facility] BUN 18 5 - 25 mg/dL LAB CHEMISTRY METHOD 01/10/2024 10:53 AM [facility] Creatinine 1.20(H) 0.50 - 1.10 mg/dL LAB CHEMISTRY METHOD 01/10/2024 10:53 AM [facility] eGFR 51(L) >=60 mL/min/1. 73m2 LAB CHEMISTRY METHOD 01/10/2024 10:53 AM [facility] Comment:Calculation based on the??Chronic Kidney Disease Epidemiology Collaboration (CKD-EPI) equation refit??without adjustment for race. BUN/Creatinine Ratio 15.0 LAB CHEMISTRY METHOD 01/10/2024 10:53 AM [facility] Calcium 9.4 8.5 - 10.5 mg/dL LAB CHEMISTRY METHOD 01/10/2024 10:53 AM [facility] Blood Venous blood specimen / Unknown Venipuncture / Unknown 01/10/2024 7:05 AM EST 01/10/2024 9:58 AM EST us Gilson Davidson MD LAB BLOOD ORDERABLES Final Resul t [facility] [address] [place] [address], * (ABNORMAL) Complete blood count (01/10/2024 7:05 AM EST) [facility] WBC 12.8(H) 4.8 - 10.8 K/mcL LAB HEMETOLOGY METHOD 01/10/2024 10:13 AM [facility] RBC 3.40(L) 3.80 - 4.80 M/mcL LAB HEMETOLOGY METHOD 01/10/2024 10:13 AM [facility] Hemoglobin 9.6(L) 11.5 - 16.0 g/dL LAB HEMETOLOGY METHOD 01/10/2024 10:13 AM [facility] Hematocrit 30.8(L) 35.0 - 47.0 % LAB HEMETOLOGY METHOD 01/10/2024 10:13 AM [facility] MCV 90.1 79.0 - 98.0 FL LAB HEMETOLOGY METHOD 01/10/2024 10:13 AM [facility] MCH 28.1 27.0 - 32.0 pcg LAB HEMETOLOGY METHOD 01/10/2024 10:13 AM [facility] MCHC 31.2(L) 32.0 - 37.0 g/dL LAB HEMETOLOGY METHOD 01/10/2024 10:13 AM [facility] RDW 13.1 11.0 - 15.0 % LAB HEMETOLOGY METHOD 01/10/2024 10:13 AM [facility] Platelets 349 130 - 400 K/mcL LAB HEMETOLOGY METHOD 01/10/2024 10:13 AM [facility] MPV 9.7 7.0 - 11.0 FL LAB HEMETOLOGY METHOD 01/10/2024 10:13 AM [facility] NRBC 0.0 <1.0 % LAB HEMETOLOGY METHOD 01/10/2024 10:13 AM [facility] NRBC Absolute 0.00 <0.10 K/mcL LAB HEMETOLOGY METHOD 01/10/2024 10:13 AM EST [facility] Blood Venous blood specimen / Unknown Venipuncture / Unknown 01/10/2024 7:05 AM EST 01/10/2024 10:05 AM EST us Gilson Davidson MD LAB BLOOD ORDERABLES Final Resul t [facility] [address] [place] [address], documented in this encounter Visit Diagnoses Diagnosis Type 2 diabetes mellitus without complications (CMS/HCC) Essential (primary) hypertension Unspecified essential hypertension documented in this encounter Care Teams Fly Fishing Guide Relationship Specialty Start Date End Date Kristin Bellamy MD 1221 [facility] [address] [place], [place] PCP - General Internal Medicine 11/29/19 documented as of this encounter
--- OUTSIDE RECORDS SUMMARY | 2024-04-19 12:50 | XMS_ITS | Encounter Summary ---
Author Organization [facility] Address [address] [place] [phone] Care Team Providers Care Computational Theory Scientist Name Role Phone Kristin Bellamy MD Primary Care Provider [phone] Encounter Details Date Type Department Care Team (Late st Contact Info) Description 04/09/[address] [facility] - Main Lab 299 [facility] [place] [address] Gilson Davidson MD 38 [facility] [address] [place], [address] Essential (primary) hypertension; Type 2 diabetes [...] Date/Time Associated Diagnosis Comments SEDIMENTATION RATE Routine 04/10/2024 4: 50 AM EST Essential (primary) hypertension Type 2 diabetes mellitus without complications (CMS/HCC) COMPLETE BLOOD COUNT Routine 04/10/2024 4:50 AM EST Essential (primary) hypertension Type 2 diabetes mellitus without complications (CMS/HCC) C-REACTIVE PROTEIN Routine 04/10/2024 4: 50 AM EST Essential (primary) hypertension Type 2 diabetes mellitus without complications (CMS/HCC) BASIC METABOLIC PANEL Routine 04/10/2024 4:50 AM EST Essential (primary) hypertension Type 2 diabetes mellitus without complications (CMS/HCC) documented in this encounter Results * (ABNORMAL) Sedimentation rate (04/10/2024 4:50 AM EST) Pathologist [facility] Sed Rate 94(H) 0 - 30 mm/hr LAB HEMETOLOGY METHOD 04/10/2024 11:11 AM EST [facility] Blood Venous blood specimen / Unknown Venipuncture / Unknown 04/10/2024 4:50 AM EST 04/10/2024 9:58 AM EST us Gilson Davidson MD LAB BLOOD ORDERABLES Final Resul t Performing Organization Address [facility]/ZIP Co de Phone Number [facility] [address] [place] [address], * (ABNORMAL) C-reactive protein (04/10/2024 4:50 AM EST) [facility] C-Reactive Protein 1.08(H) <=0.50 mg/dL LAB CHEMISTRY METHOD 04/10/2024 10:55 AM EST [facility] Blood Venous blood specimen / Unknown Venipuncture / Unknown 04/10/2024 4:50 AM EST 04/10/2024 9:58 AM EST Gilson Davidson MD LAB BLOOD ORDERABLES Final Resul t Performing Organization Address City/[facility]/ZIP Co de Phone Number [facility] [address] [place] [address], * (ABNORMAL) Basic metabolic panel (04/10/2024 4:50 AM EST) [facility] Sodium 141 133 - 145 mmol/L LAB CHEMISTRY METHOD 04/10/2024 10:46 AM EST [facility] Potassium 3.8 3.5 - 5.5 mmol/L LAB CHEMISTRY METHOD 04/10/2024 10:46 AM [facility] Chloride 106 96 - 110 mmol/L LAB CHEMISTRY METHOD 04/10/2024 10:46 AM [facility] CO2 25 21 - 32 mmol/L LAB CHEMISTRY METHOD 04/10/2024 10:46 AM [facility] Anion Gap 10 3 - 11 LAB CHEMISTRY METHOD 04/10/2024 10:46 AM [facility] Glucose 126(H) 70 - 100 mg/dL LAB CHEMISTRY METHOD 04/10/2024 10:46 AM [facility] BUN 15 5 - 25 mg/dL LAB CHEMISTRY METHOD 04/10/2024 10:46 AM [facility] Creatinine 1.22(H) 0.50 - 1.10 mg/dL LAB CHEMISTRY METHOD 04/10/2024 10:46 AM [facility] eGFR 50(L) >=60 mL/min/1. 73m2 LAB CHEMISTRY METHOD 04/10/2024 10:46 AM [facility] Comment:Calculation based on the??Chronic Kidney Disease Epidemiology Collaboration (CKD-EPI) equation refit??without adjustment for race. BUN/Creatinine Ratio 12.3 LAB CHEMISTRY METHOD 04/10/2024 10:46 AM [facility] Calcium 8.8 8.5 - 10.5 mg/dL LAB CHEMISTRY METHOD 04/10/2024 10:46 AM [facility] Blood Venous blood specimen / Unknown Venipuncture / Unknown 04/10/2024 4:50 AM EST 04/10/2024 9:58 AM EST us Gilson Davidson MD LAB BLOOD ORDERABLES Final Resul t [facility] [address] [place] [address], * (ABNORMAL) Complete blood count (04/10/2024 4:50 AM EST) [facility] WBC 10.4 4.8 - 10.8 K/mcL LAB HEMETOLOGY METHOD 04/10/2024 10:50 AM [facility] RBC 3.70(L) 3.80 - 4.80 M/mcL LAB HEMETOLOGY METHOD 04/10/2024 10:50 AM [facility] Hemoglobin 9.8(L) 11.5 - 16.0 g/dL LAB HEMETOLOGY METHOD 04/10/2024 10:50 AM [facility] Hematocrit 31.2(L) 35.0 - 47.0 % LAB HEMETOLOGY METHOD 04/10/2024 10:50 AM [facility] MCV 85.0 79.0 - 98.0 FL LAB HEMETOLOGY METHOD 04/10/2024 10:50 AM [facility] MCH 26.7(L) 27.0 - 32.0 pcg LAB HEMETOLOGY METHOD 04/10/2024 10:50 AM [facility] MCHC 31.4(L) 32.0 - 37.0 g/dL LAB HEMETOLOGY METHOD 04/10/2024 10:50 AM [facility] RDW 14.6 11.0 - 15.0 % LAB HEMETOLOGY METHOD 04/10/2024 10:50 AM [facility] Platelets 425(H) 130 - 400 K/mcL LAB HEMETOLOGY METHOD 04/10/2024 10:50 AM [facility] MPV 9.6 7.0 - 11.0 FL LAB HEMETOLOGY METHOD 04/10/2024 10:50 AM [facility] NRBC 0.0 <1.0 % LAB HEMETOLOGY METHOD 04/10/2024 10:50 AM [facility] NRBC Absolute 0.00 <0.10 K/mcL LAB HEMETOLOGY METHOD 04/10/2024 10:50 AM EST [facility] Blood Venous blood specimen / Unknown Venipuncture / Unknown 04/10/2024 4:50 AM EST 04/10/2024 9:58 AM EST us Gilson Davidson MD LAB BLOOD ORDERABLES Final Resul t [facility] [address] [place] [address], documented in this encounter Visit Diagnoses Diagnosis Essential (primary) hypertension Unspecified essential hypertension Type 2 diabetes mellitus without complications (CMS/HCC) documented in this encounter Care Teams Computational Theory Scientist Relationship Specialty Start Date End Date Kristin Bellamy MD 1221 [facility] [address] [place], [place] PCP - General Internal Medicine 11/29/19 documented as of this encounter
--- OUTSIDE RECORDS SUMMARY | 2024-04-19 12:50 | XMS_ITS | Encounter Summary ---
Author Organization [facility] Address [address] [place] [address] Care Team Providers Care Gleason Gear Generator Name Role Phone Kristin Bellamy MD Primary Care Provider [phone] Encounter Details Date Type Department Care Team (Late st Contact Info) Description 04/02/2024 Lab Requisition [facility] - Main Lab 299 [facility] [place] [address] Gilson Davidson MD 38 [facility] [address] [place], [address] Essential (primary) hypertension; Type 2 diabetes [...] documented as of this encounter Visit Diagnoses Diagnosis Essential (primary) hypertension Unspecified essential hypertension Type 2 diabetes mellitus without complications (CMS/HCC) documented in this encounter Care Teams Gleason Gear Generator Relationship Specialty Start Date End Date Kristin Bellamy MD [address] [place], [place] PCP - General Internal Medicine 11/29/19 documented as of this encounter
--- OUTSIDE RECORDS SUMMARY | 2024-04-19 12:50 | XMS_ITS ---
Author Organization [facility] Address [address] [place] [address] Care Team Providers Care Glass Unloading Equipment Tender Name Role Phone Cheyenneelaine Kristin Primary Care Provider Unavailab Neri Barragan Unavailable [phone] REASON FOR VISIT cx appt 11/30/23 Encounters Encounter Location Date Provider Diagnosis [facility] [address] [place] [address] 11/28/2023 Neri Tinoco Plan Of Treatment No Information Progress Notes * Olga KATDOB:1960 (63 yo F)Acc No.[id number]:11/28/2023 Patient:?Olga KAT :1960???Age:63 Y???Sex:Female Address:[address] [place], [address] * true * Date:? Generated for Vicentei salvador/Juan/eTransmitting on:?04/19/2024 12:50 PM EST
--- OUTSIDE RECORDS SUMMARY | 2024-04-19 12:50 | XMS_ITS | Encounter Summary ---
Author Organization [facility] Address [address] [place] [address] Care Team Providers Care Dry Cleaning Counter Clerk Name Role Phone Kristin Bellamy MD Primary Care Provider [phone] Encounter Details Date Type Department Care Team (Late st Contact Info) Description 01/05/2024 Lab Requisition [facility] - Main Lab [address] [facility] [place] [address] Gilson Davidson MD [address] [facility] [address] [place], [address] Type 2 diabetes mellitus without complications [...] CBC auto differential (01/05/2024 5:02 AM EST) [facility] WBC 9.0 4.8 - 10.8 K/mcL LAB HEMETOLOGY METHOD 01/05/2024 6:52 AM [facility] RBC 3.10(L) 3.80 - 4.80 M/mcL LAB HEMETOLOGY METHOD 01/05/2024 6:52 AM [facility] Hemoglobin 8.8(L) 11.5 - 16.0 g/dL LAB HEMETOLOGY METHOD 01/05/2024 6:52 AM [facility] Hematocrit 27.8(L) 35.0 - 47.0 % LAB HEMETOLOGY METHOD 01/05/2024 6:52 AM [facility] MCV 88.8 79.0 - 98.0 FL LAB HEMETOLOGY METHOD 01/05/2024 6:52 AM [facility] MCH 28.1 27.0 - 32.0 pcg LAB HEMETOLOGY METHOD 01/05/2024 6:52 AM [facility] MCHC 31.7(L) 32.0 - 37.0 g/dL LAB HEMETOLOGY METHOD 01/05/2024 6:52 AM [facility] RDW 13.0 11.0 - 15.0 % LAB HEMETOLOGY METHOD 01/05/2024 6:52 AM [facility] Platelets 370 130 - 400 K/mcL LAB HEMETOLOGY METHOD 01/05/2024 6:52 AM [facility] MPV 9.7 7.0 - 11.0 FL LAB HEMETOLOGY METHOD 01/05/2024 6:52 AM [facility] NRBC 0.0 <1.0 % LAB HEMETOLOGY METHOD 01/05/2024 6:52 AM [facility] LAB NRBC Absolute 0.00 <0.10 K/mcL LAB HEMETOLOGY METHOD 01/05/2024 6:52 AM [facility] Neutrophils Relative 64.8 % LAB HEMETOLOGY METHOD 01/05/2024 6:52 AM [facility] Lymphocytes Relative 23.0 % LAB HEMETOLOGY METHOD 01/05/2024 6:52 AM [facility] Monocytes Relative 6.4 % LAB HEMETOLOGY METHOD 01/05/2024 6:52 AM [facility] Eosinophils Relative 3.4 % LAB HEMETOLOGY METHOD 01/05/2024 6:52 AM [facility] Basophils Relative 0.4 % LAB HEMETOLOGY METHOD 01/05/2024 6:52 AM [facility] Immature Granulocytes Relative 2.0 % LAB HEMETOLOGY METHOD 01/05/2024 6:52 AM [facility] Neutrophils Absolute 5.83 1.50 - 7.00 K/mcL LAB HEMETOLOGY METHOD 01/05/2024 6:52 AM [facility] Lymphocytes Absolute 2.07 1.00 - 5.00 K/mcL LAB HEMETOLOGY METHOD 01/05/2024 6:52 AM [facility] Monocytes Absolute 0.58 0.20 - 1.00 K/mcL LAB HEMETOLOGY METHOD 01/05/2024 6:52 AM [facility] Eosinophils Absolute 0.31 0.00 - 0.50 K/mcL LAB HEMETOLOGY METHOD 01/05/2024 6:52 AM [facility] Basophils Absolute 0.04 0.00 - 0.20 K/mcL LAB HEMETOLOGY METHOD 01/05/2024 6:52 AM [facility] Immature Granulocytes Absolute 0.18(H) 0.00 - 0.03 K/mcL LAB HEMETOLOGY METHOD 01/05/2024 6:52 AM EST [facility] Blood Venous blood specimen / Unknown Venipuncture / Unknown 01/05/2024 5:02 AM EST 01/05/2024 6:25 AM EST us Gilson Davidson MD LAB BLOOD ORDERABLES Final Resul t Performing Organization Address [facility] Co de Phone Number [facility] [address] [place] [address], [place] [phone] * Hemoglobin A1c (01/05/2024 5:02 AM EST) Hemoglobin A1C 6.4 <6.5 % LAB CHEMISTRY METHOD 01/05/2024 2:01 PM [facility] Mean Bld Glu Estim. 137 mg/dL LAB CHEMISTRY METHOD 01/05/2024 2:01 PM [facility] Blood Venous blood specimen / Unknown Venipuncture / Unknown 01/05/2024 5:02 AM EST 01/05/2024 6:25 AM EST us Gilson Davidson MD LAB BLOOD ORDERABLES Final Resul t Performing Organization Address [facility]/ZIP Co de Phone Number [facility] [address] [place] [address], [place] [phone] * (ABNORMAL) Comprehensive metabolic panel (01/05/2024 5:02 AM EST) Sodium 137 133 - 145 mmol/L LAB CHEMISTRY METHOD 01/05/2024 7:13 AM [facility] Potassium 4.5 3.5 - 5.5 mmol/L LAB CHEMISTRY METHOD 01/05/2024 7:13 AM [facility] Chloride 107 96 - 110 mmol/L LAB CHEMISTRY METHOD 01/05/2024 7:13 AM [facility] CO2 27 21 - 32 mmol/L LAB CHEMISTRY METHOD 01/05/2024 7:13 AM [facility] Anion Gap 3 3 - 11 LAB CHEMISTRY METHOD 01/05/2024 7:13 AM [facility] Glucose 114(H) 70 - 100 mg/dL LAB CHEMISTRY METHOD 01/05/2024 7:13 AM [facility] BUN 18 5 - 25 mg/dL LAB CHEMISTRY METHOD 01/05/2024 7:13 AM [facility] Creatinine 1.25(H) 0.50 - 1.10 mg/dL LAB CHEMISTRY METHOD 01/05/2024 7:13 AM [facility] eGFR 49(L) >=60 mL/min/1. 73m2 LAB CHEMISTRY METHOD 01/05/2024 7:13 AM [facility] Comment:Calculation based on the??Chronic Kidney Disease Epidemiology Collaboration (CKD-EPI) equation refit??without adjustment for race. BUN/Creatinine Ratio 14.4 LAB CHEMISTRY METHOD 01/05/2024 7:13 AM [facility] Calcium 8.8 8.5 - 10.5 mg/dL LAB CHEMISTRY METHOD 01/05/2024 7:13 AM [facility] AST (SGOT) 21 10 - 42 unit/L LAB CHEMISTRY METHOD 01/05/2024 7:13 AM [facility] ALT (SGPT) 9(L) 10 - 60 unit/L LAB CHEMISTRY METHOD 01/05/2024 7:13 AM [facility] Alkaline Phosphatase 75 42 - 121 unit/L LAB CHEMISTRY METHOD 01/05/2024 7:13 AM [facility] Total Protein 6.9 6.0 - 8.0 g/dL LAB CHEMISTRY METHOD 01/05/2024 7:13 AM [facility] Albumin 2.6(L) 3.2 - 5.0 g/dL LAB CHEMISTRY METHOD 01/05/2024 7:13 AM EST [facility] Total Bilirubin 0.2 0.0 - 1.4 mg/dL LAB CHEMISTRY METHOD 01/05/2024 7:13 AM EST [facility] Blood Venous blood specimen / Unknown Venipuncture / Unknown 01/05/2024 5:02 AM EST 01/05/2024 6:25 AM EST us Gilson Davidson MD LAB BLOOD ORDERABLES Final Resul t [facility] [address] [place] [address], documented in this encounter Visit Diagnoses Diagnosis Type 2 diabetes mellitus without complications (CMS/HCC) Essential (primary) hypertension Unspecified essential hypertension documented in this encounter Care Teams Dry Cleaning Counter Clerk Relationship Specialty Start Date End Date Kristin Bellamy MD [facility] PCP - General Internal Medicine 11/29/19 documented as of this encounter
--- OUTSIDE RECORDS SUMMARY | 2024-04-19 12:50 | XMS_ITS | Patient Health Record ---
Author Organization [facility] [address] [place] Address [address] [facility] [place] [address] Care Team Providers Care Senior Fire Protection Engineer Name Role Phone Kristin Bellamy Primary Care Provider Unavailab Neri Barragan Unavailable [phone] Jarret Saucedo Unavailable [phone] Allergies Allergen (clinical drug ingredient) Drug/Non Drug Allergy documented on EMR Reaction Allergy Type Onset Date Status amoxicillin Amoxicillin Unknown Drug Allergy Act beatris Biaxin rash Drug Allergy Active Ceftin rash Drug Allergy Active clindamycin Clindamycin HCl Unknown Drug Allergy Active Keflex rash Drug Allergy Active olmesartan Olmesartan Medoxomil tinnitus Drug Allergy Active shrimp allergenic extract Shrimp (Diagnostic) Unknown Drug Allergy Active erythromycin Erythromycin Unknown Drug Allergy A ctive Penicillin rash Drug Allergy Active Shellfish (FN) Shellfish-derived Products Unknown Drug Allergy Active Reason For Referral Diagnosis 1 Charcot foot due to diabetes mellitus (E11.610) Diagnosis 2 Idiopathic gout, rig ht ankle and foot (M10.071) Diagnosis 3 Non-pressure chronic ulcer of other part of right foot limited to breakdown of skin (L97.511) Diagnosis 4 Type 1 diabetes antonio itus with diabetic polyneuropathy (E10.42) Diagnosis 5 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) Diagnosis 6 Non-pressure chronic ulcer of other part of right foot with fat layer exposed (L97.512) Referring Provider First Name Kristin Referring Provider Last Name Mia [facility] Referred Provider Neri Tinoco Referred Address [address] [place] [address],[address],[place], [place],[address], Referred Provider Specialty Podiatry Referral Priority Routine Medications Medication SIG (Take, Route, Frequency, Duration) Notes Start Date End Date Status Lisinopril 20 MG Orally bid No t-Taking Furosemide 40 MG BID Act beatris Lantus 30 units once a day Not -Taking Doxycycline Hyclate 100 MG 1 capsule Orally every 12 hrs for 7 days 08/04/2017 Not-Taking Vitamin B12 Active Lisinopril-hydroCHLOROthi azide 20-12.5 MG Oral Not-Taking Custom Molded Shoes as directed Dx: Active Pravastatin Sodium 80 MG Oral for 30 Not-Taking HumaLOG 100 UNIT/ML Subcutaneous for 30 Active Sulfamethoxazole-TMP DS one time per day Not-Taking Iron once a week Active Doxycycline Hyclate 100 MG Oral for 30 Not-Taking Atorvastatin Calcium 20 MG 1 tablet Orally Not-Taking Carvedilol 12.5 MG Oral for 90 Not-Taking Toujeo SoloStar Not- Taking Vitamin C Not-Taking Olmesartan Medoxomil Not-Taking levoFLOXacin 750 MG Oral for 14 Not-Taking hydroCHLOROthiazide Not-Taking Custom Molded Shoes as directed Dx: Active Losartan Potassium 100 MG Orally Not-Taking Linezolid 600 MG twice daily Orally Not-Taking hydroCHLOROthiazide Not-Taking Irbesartan 300 MG 1 tablet Orally Once a day for 30 day(s) Not-Taking Losartan Potassium A ctive Cipro 500 MG 1 tablet Orally every 12 hrs for 30 days Not-Taking Sertraline HCl 50 MG 1 tablet Orally Once a day Active Tresiba FlexTouch 80 UNIT Not-Taking Doxycycline Calcium Not-Taking Bilberry Not-Taking Lantus SoloStar Acti ve metFORMIN HCl Not-Ta rui Albuterol prn Active Cipro 500 MG 1 tablet Orally every 12 hrs for 10 day(s) 07/24/2017 Not-Taking Vitamin D3 Active Doxycycline Hyclate 100 MG 1 capsule Orally Twice a day for 10 day(s) 07/27/2018 Not-Taking Crestor 5 MG 1 tablet Orally Once a day Active NIFEdipine ER Osmotic Release 60 MG Orally Once a day Not-Takin g hydrALAZINE HCl Acti ve Claritin generic Active Immunizations Vaccine Route Administration Date Status Comme nts COVID-19 Moderna Vaccine Unknown 02/20/2020 Administere d COVID-19 Moderna Vaccine Unknown 03/19/2020 Administere d Influenza Unknown 01/30/2017 Refused Influenza Unknown 11/27/2017 Administered Influenza Unknown 10/26/2018 Administered Influenza Unknown 11/28/2019 Administered Social History Tobacco Use: Social History Observation Description Date Details (start date - stop date) Former Smoker NA - NA Tobacco Use/Smoking Question Answer Notes Are you a: former smoker Additional Findings: Tobacco Non-User Current no n-smoker Alcohol Screen Question Answer Notes Did you have a drink containing alcohol in the p ast year? No Points 0 Interpretation Negative Tobacco use other than smoking: Question Answer Notes Are you an other tobacco user? 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) Active confirmed Problem Non-pressure chronic ulcer of other part of right foot limited to breakdown of skin (L97.511) Active confirmed Problem Primary gout (29185902) Idiopathic gout, right ankle and foot (M10.071) Active confirmed Problem Polyneuropathy due to diabetes mellitus type I (559167187) Type 1 diabetes mellitus with diabetic polyneuropathy (E10.42) Active confirmed Problem 83368213 Charcot foot due to diabetes mellitus (E11.610) Active confirmed Vital Signs Height 5ft 6 in in 08/29/2023 Weight 205 lbs 08/29/2023 BMI 33.08 kg/m2 08/29/2023 Procedures Procedure Date Ordered Date Performed Result Body Sit e 07102-YKJADRT SKIN/TISSUE 08/29/2023 N/A Encounters Encounter Location Date Provider Diagnosis [facility] [address] 05/19/2023 Jarret Saucedo Charcot foot due to diabetes mellitus E11.610 ; Tinea unguium B35.1 ; Type 1 diabetes mellitus with diabetic polyneuropathy E10.42 ; Pain in right toe(s) M79.674 ; Pain in left toe(s) M79.675 and Ingrowing nail L60.[address] [facility] [address] 08/29/2023 Jarret Saucedo Charcot foot due to diabetes mellitus E11.610 ; Tinea unguium B35.1 ; Type 1 diabetes mellitus with diabetic polyneuropathy E10.42 ; Pain in right toe(s) M79.674 ; Pain in left toe(s) M79.675 ; Ingrowing nail L60.0 and Non-pressure chronic ulcer of other part of right foot with fat layer exposed L97.512 [facility] [address] [address] 10/07/2023 Neri Tinoco [facility] [address] [address] 11/28/2023 Neri Tinoco Assessments Encounter Date Diagnosis (ICD Code) Assessment Notes Treatment Notes Treatment Clinical Notes Section Notes 05/19/2023 Tinea unguium (ICD-10 - B35.1) 05/19/2023 Charcot foot due to diabetes mellitus (ICD-10 - E11.610) 08/29/2023 Tinea unguium (ICD-10 - B35.1) 08/29/2023 Charcot foot due to diabetes mellitus (ICD-10 - E11.610) 08/29/2023 Type 1 diabetes mellitus with diabetic polyneuropathy (ICD-10 - E10.42) 05/19/2023 Type 1 diabetes mellitus with diabetic polyneuropathy (ICD-10 - E10.42) 05/19/2023 Pain in right toe(s) (ICD-10 - M79.674) 08/29/2023 Pain in right toe(s) (ICD-10 - M79.674) 08/29/2023 Pain in left toe(s) (ICD-10 - M79.675) 05/19/2023 Pain in left toe(s) (ICD-10 - M79.675) 05/19/2023 Ingrowing nail (ICD-10 - L60.0) 08/29/2023 Ingrowing nail (ICD-10 - L60.0) 08/29/2023 Non-pressure chronic ulcer of other part of right foot with fat layer exposed (ICD-10 - L97.512) Plan Of Treatment Pending Test Test Name Order Date X ray : Foot, right 3V 07/24/2017 X ray : Foot, right 3V 11/06/2018 X ray : Foot, right 3V 02/21/2020 45402-RGNQSKR NAIL, 6 OR MORE 12/25/2017 14005-TSZVEDO NAIL, 6 OR MORE 10/09/2017 29497-VDBCNSM NAIL, 6 OR MORE 07/24/2017 98044-CAEJXZV NAIL, 1-5 04/24/2017 27684-BLIWJHQ NAIL, 1-5 08/22/2016 68180-HABRQQH NAIL, 1-5 11/07/2016 50390-DZVFBVH NAIL, 1-5 01/30/2017 42859- Debride <25 sq cm 11/07/2016 33093- Debride <25 sq cm 08/04/2017 92401-MVAKSVK SKIN/TISSUE 08/04/2017 27202-VHIQANN SKIN/TISSUE 05/12/2020 59802-EZMSBKW SKIN/TISSUE 08/04/2020 50162-BVDVOOZ SKIN/TISSUE 11/29/2019 38957-DPZVMGM SKIN/TISSUE 02/21/2020 71799-XRMLTLX SKIN/TISSUE 11/06/2018 98139-UKXHSLJ SKIN/TISSUE 10/23/2018 65601-RYRCDIG SKIN/TISSUE 02/01/2019 18921-XKCAQPP SKIN/TISSUE 12/22/2020 94121-PBJSVCD SKIN/TISSUE 05/13/2022 87028-DFHNBOL SKIN/TISSUE 08/29/2023 22522 I&D ABSCESS- SIMPLE,SINGLE 019 98661- I&D ABSCESS-COMPLICATED,MULTI 12/2017 97197-UAVQ SKIN LESIONS, OVER 4 10/10/19 18 02809-VNNA SKIN LESIONS, OVER 4 12/26/19 18 78639-BAYD SKIN LESIONS, OVER 4 03/19/19 19 25700-OEPN SKIN LESIONS, OVER 4 06/19/19 19 49615-OVPO SKIN LESIONS, OVER 4 06/10/19 17 16964-OYFS SKIN LESIONS, 2 TO 4 12/02/19 16 57383-NSLF SKIN LESIONS, 2 TO 4 02/23/19 17 37565-AYDZ SKIN LESIONS, 2 TO 4 11/08/19 17 69397-QKGT SKIN LESIONS, 2 TO 4 08/23/19 17 36135-JYGN SKIN LESIONS, 2 TO 4 01/31/20 17 93397-JDFC SKIN LESIONS, 2 TO 4 08/30/19 19 19119-UXXL SKIN LESIONS, 2 TO 4 04/25/19 18 18464-ZGKS SKIN LESIONS, 2 TO 4 07/25/19 18 26498-HLYX SKIN LESIONS, 2 TO 4 12/23/19 21 42969-HODD SKIN LESIONS, 2 TO 4 03/16/19 22 94905-BERF SKIN LESIONS, 2 TO 4 04/09/19 20 61209-IHUC SKIN LESIONS, 2 TO 4 06/14/19 20 30476-DRSB SKIN LESIONS, 2 TO 4 08/30/19 20 65158-NTRF SKIN LESIONS, 2 TO 4 02/02/20 19 64466-KMEQ SKIN LESIONS, 2 TO 4 02/20/19 21 20183-AZCV SKIN LESIONS, 2 TO 4 11/29/19 20 12354-GUCZ SKIN LESIONS, 2 TO 4 08/05/19 21 02345-BIIU SKIN LESIONS, 2 TO 4 10/14/19 21 29532-HGAP SKIN LESIONS, 2 TO 4 05/13/19 21 72113-WKEE NAIL(S) 01/30/2017 32825-AIJJ NAIL(S) 11/07/2016 10909-JGKI NAIL(S) 02/24/2016 50276-ZEFB NAIL(S) 12/02/2015 00870-CDZZ NAIL(S) 06/09/2016 18220-IRWL NAIL(S) 08/22/2016 01711-VWDEUAFA OF HEMATOMA/FLUID 019 Insurance Providers Payer Name Payer Address Payer Phone Subscriber Number Group Number Insured Name Patient Relationship to Insured Coverage Start Date Coverage End Date [facility] [address] [place] [address] [phone] [id number] Olga Kat Self - patient is the insured Medical (General) History Medical History History ICD Code Anemia asthma Broken bones Cholesterol Cataracts Diabetic High blood pressure Numbness Neuropathy Measles Chicken pox Joint implants/screws Retinopathy goiter Charcot Surgical History Surgery Date(Month/Year) vitrectomy 2016 foot surgery 2016 cataract surgery, LT eye 05/2305/23/2014 cataract surgery RT eye 04/2016 Hardware removal right foot 07/26/19 cauterized artery 08/04/19 laser eye surgery, left 12/14/2020 Hospitalization History Reason Date(Month/Year) [facility]- infection in right foot 11/10/19-9/3 [facility] wound care 08/30/19 [facility] [place]19 [facility] hardware removal right foot 07/26/19 [facility] Fell 05/27/19 [facility] -Infection in foot 03/06- [facility]- Abscess on right foot 12/14/18 [facility]- right foot infection 11/09/18- 9 [facility] - foot infection 09/28-10/02/18 [facility] admitted for Abcess on Right foot Dr. Perez did wound culture on foot 01/19 Abscess in right foot 07/04/2016 [facility] ER, felt dizzy and fell at home in h er bedroom 07/24/2023 [facility]- UTI, chest tightness 08/03/21 [facility]-Un[place] to walk 08/19/20-08/26/20 [facility] Wound care ctr 11/28/19
--- OUTSIDE RECORDS SUMMARY | 2024-04-19 12:50 | XMS_ITS | Clinical Summary ---
Author Organization [address] Address [address] [place] [address] Phone Care Team Providers Care Cable Driller Name Role Phone Kristin Bellamy MD Primary Care Provider [phone] Encounters Date Type Department Care Team Description 04/16/2024 Lab Requisition [facility] Lab [address] [place] [phone] Gilson Davidson MD Essential (primary) hypertension; Type 2 diabetes mellitus without complications (CMS/HCC) 04/09/2024 Lab Requisition [facility] Lab [address] [place] [phone] Gilson Davidson MD Essential (primary) hypertension; Type 2 diabetes mellitus without complications (CMS/HCC) 04/09/2024 Lab Requisition [facility] Lab [address] [place] [phone] Gilson Davidson MD Essential (primary) hypertension; Hypothyroidism, unspecified; Type 2 diabetes mellitus without complications (CMS/HCC); Dependence on renal dialysis (CMS/HCC) 04/02/2024 Lab Requisition [facility] Main Lab [address] [place] [phone] Gilson Davidson MD Essential (primary) hypertension; Type 2 diabetes mellitus without complications (CMS/HCC) 03/26/2024 Lab Requisition [facility] Lab [address] [place] [phone] Gilson Davidson MD Essential (primary) hypertension; Type 2 diabetes mellitus without complications (CMS/HCC) 03/19/2024 Lab Requisition [facility] Lab [address] [place] [phone] Gilson Davidson MD Type 2 diabetes mellitus without complications ([facility]/HCC); Essential (primary) hypertension 03/12/2024 Lab Requisition [facility] Lab [address] [place] [phone] Gilson Davidson MD Type 2 diabetes mellitus without complications (CMS/HCC); Essential (primary) hypertension 03/05/2024 Lab Requisition [facility] Lab [address] [place] [phone] Gilson Davidson MD Type 2 diabetes mellitus without complications (CMS/HCC); Essential (primary) hypertension 02/27/2024 Lab Requisition [facility] Lab [address] [place] [phone] Gilson Davidson MD Non-pressure chronic ulcer of unspecified part of left lower leg with unspecified severity (CMS/HCC); Small cell b-cell lymphoma, spleen (CMS/HCC); Other toxic encephalopathy; Type 2 diabetes mellitus without complications (CMS/HCC); Essential (primary) hypertension 02/20/2024 Lab Requisition [facility] Lab [address] [place] [address] Gilson Davidson MD Hyperlipidemia, unspecified; Other specified diabetes mellitus with other specified complication (CMS/HCC); Other acute osteomyelitis, right ankle and foot (CMS/HCC); Type 2 diabetes mellitus without complications (CMS/HCC); Essential (primary) hypertension 02/13/2024 Lab Requisition [facility] Lab [address] [place] [phone] Gilson Davidson MD Type 2 diabetes mellitus without complications ([facility]/HCC); Essential (primary) hypertension 02/06/2024 Lab Requisition [facility] Lab [address] [place] [address] Gilson Davidson MD Type 2 diabetes mellitus without complications (CMS/HCC); Essential (primary) hypertension 01/30/2024 Lab Requisition [facility] Lab [address] [facility] [place] [address] Gilson Davidson MD Type 2 diabetes mellitus without complications ([facility]); Essential (primary) hypertension 01/23/2024 Lab Requisition [facility] - Main Lab [address] [facility] [place] [address] Gilson Davidson MD Type 2 diabetes mellitus without complications ([facility]); Essential (primary) hypertension from Last 3 Months Surgical History Surgery Date Site/Laterality Comments OTHER SURGICAL HISTORY 2015 PROCEDURE: CA VITRECTOMY MCHNL PARS PLNA FOCAL ENDOLASER PC FOOT SURGERY 2016 PROCEDURE: HISTORICAL FOOT SURGERY CATARACT EXTRACTION 2015 Left PROCEDURE: HISTORICAL CATARACT REMOVAL Medical History Medical History Date Comments Anemia DX:Anemia Hyperlipidemia DX:Hyperlipidemi a Essential hypertension DX:Essent ial hypertension Neuropathy DX:Neuropathy Presence of other orthopedic joint implants DX:Presence of other orthope dic joint implants Retinopathy DX:Retinopathy Charcot foot due to diabetes mellitus ([facility]) DX:Charcot foot due to diabe roger mellitus ([facility]) Type 2 diabetes mellitus wit h eye manifestations ([facility]) 07/06/2020 DX:Type 2 diabetes mellitus with eye manifestations ([facility]) Diabetes mellitus type 2 wit h neurological manifestations ([facility]) 07/06/2020 DX:Diabetes antonio itus type 2 with neurological manifestations ([facility]) Diabetes mellitus with catar act ([facility]) 07/06/2020 DX:Diabetes mellitus with ca taract ([facility]); COMMENT: Left eye Asthma 07/06/2020 DX:Asthma DM (diabetes mellitus), type 2 with peripheral vascular complications ([facility]) 07/06/2020 DX:DM (diabetes mellitus), t ype 2 with peripheral vascular complications ([facility]) Gout 07/06/2020 DX:Gout Diabetic ulcer of right foot ([facility]) 07/06/2020 DX:Diabetic ulcer of right f oot ([facility]); COMMENT: Right plantar foot - [facility] History of cataract 07/06/2020 [...] 01/05/2024 Diabetes: Blood Sugar Control Test (HGBA1C) 10/07/2024 04/09/2024, 01/05/2024 Diabetes: Annual GFR (Glomerular Filtration Rate) 04/17/2025 04/17/2024, 04/10/2024, 04/09/2024, Additional history exists 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/CHF/CAD Annual BMP Blood Test 04/17/2025 04/17/2024, 04/10/2024, 04/09/2024, Additional history exists HIB Vaccines Aged Out [...] Date/Time Associated Diagnosis Comments SEDIMENTATION RATE Routine 04/17/2024 6: 14 AM EST Essential (primary) hypertension Type 2 diabetes mellitus without complications (CMS/HCC) C-REACTIVE PROTEIN Routine 04/17/2024 6: 14 AM EST Essential (primary) hypertension Type 2 diabetes mellitus without complications (CMS/HCC) BASIC METABOLIC PANEL Routine 04/17/2024 6:14 AM EST Essential (primary) hypertension Type 2 diabetes mellitus without complications (CMS/HCC) COMPLETE BLOOD COUNT Routine 04/17/2024 6:14 AM EST Essential (primary) hypertension Type 2 diabetes mellitus without complications (CMS/HCC) SEDIMENTATION RATE Routine 04/10/2024 4: 50 AM [...] Type 2 diabetes mellitus without complications (CMS/HCC) HEMOGLOBIN A1C Routine 04/09/2024 6:31 AM EST Essential (primary) hypertension Hypothyroidism, unspecified Type 2 diabetes mellitus without complications (CMS/HCC) Dependence on renal dialysis (CMS/HCC) THYROID STIMULATING HORMONE WITH REFLEX TO FREE T4 AND FREE T3 Routine 04/09/2024 6:31 AM EST Essential (primary) hypertension Hypothyroidism, unspecified Type 2 diabetes mellitus without complications (CMS/HCC) Dependence on renal dialysis (CMS/HCC) BASIC METABOLIC PANEL Routine 04/09/2024 6:31 AM EST Essential (primary) hypertension Hypothyroidism, unspecified Type 2 diabetes mellitus without complications (CMS/HCC) Dependence on renal dialysis (CMS/HCC) COMPLETE BLOOD COUNT Routine 04/09/2024 6:31 AM EST Essential (primary) hypertension Hypothyroidism, unspecified Type 2 diabetes mellitus without complications (CMS/HCC) Dependence on renal dialysis (CMS/HCC) SEDIMENTATION RATE Routine 03/27/2024 7: 55 AM [...] 3 Months Results * (ABNORMAL) Sedimentation rate (04/17/2024 6:14 AM EST) Only the most recent of12 resultswithin the time period is included. Sed Rate 83(H) 0 - 30 mm/hr LAB HEMETOLOGY METHOD 04/17/2024 11:43 AM EST [facility] Blood Venous blood specimen / Unknown Venipuncture / Unknown 04/17/2024 6:14 AM EST 04/17/2024 10:58 AM EST us Gilson Davidson MD LAB BLOOD ORDERABLES Final Resul t [facility] LAB [address] [place] [address], [place] [phone] * (ABNORMAL) Complete blood count (04/17/2024 6:14 AM EST) Only the most recent of13 resultswithin the time period is included. WBC 7.7 4.8 - 10.8 K/mcL LAB HEMETOLOGY METHOD 04/17/2024 11:25 AM [facility] LAB RBC 3.60(L) 3.80 - 4.80 M/mcL LAB HEMETOLOGY METHOD 04/17/2024 11:25 AM [facility] LAB Hemoglobin 9.7(L) 11.5 - 16.0 g/dL LAB HEMETOLOGY METHOD 04/17/2024 11:25 AM [facility] LAB Hematocrit 30.5(L) 35.0 - 47.0 % LAB HEMETOLOGY METHOD 04/17/2024 11:25 AM [facility] LAB MCV 85.9 79.0 - 98.0 FL LAB HEMETOLOGY METHOD 04/17/2024 11:25 AM [facility] LAB MCH 27.3 27.0 - 32.0 pcg LAB HEMETOLOGY METHOD 04/17/2024 11:25 AM [facility] LAB MCHC 31.8(L) 32.0 - 37.0 g/dL LAB HEMETOLOGY METHOD 04/17/2024 11:25 AM [facility] LAB RDW 15.4(H) 11.0 - 15.0 % LAB HEMETOLOGY METHOD 04/17/2024 11:25 AM [facility] LAB Platelets 290 130 - 400 K/mcL LAB HEMETOLOGY METHOD 04/17/2024 11:25 AM [facility] LAB MPV 10.1 7.0 - 11.0 FL LAB HEMETOLOGY METHOD 04/17/2024 11:25 AM [facility] LAB NRBC 0.0 <1.0 % LAB HEMETOLOGY METHOD 04/17/2024 11:25 AM EST [facility] LAB NRBC Absolute 0.00 <0.10 K/mcL LAB HEMETOLOGY METHOD 04/17/2024 11:25 AM EST [facility] Blood Venous blood specimen / Unknown Venipuncture / Unknown 04/17/2024 6:14 AM EST 04/17/2024 10:58 AM EST Gilson Davidson MD LAB BLOOD ORDERABLES Final Resul t Performing Organization Address [facility] Co de Phone Number [facility] [address] [place] [address], [place] [phone] * (ABNORMAL) C-reactive protein (04/17/2024 6:14 AM EST) Only the most recent of12 resultswithin the time period is included. C-Reactive Protein 0.67(H) <=0.50 mg/dL LAB CHEMISTRY METHOD 04/17/2024 2:45 PM EST [facility] Blood Venous blood specimen / Unknown Venipuncture / Unknown 04/17/2024 6:14 AM EST 04/17/2024 10:58 AM EST us Gilson Davidson MD LAB BLOOD ORDERABLES Final Resul t Performing Organization Address [facility]/ZIP Co de Phone Number [facility] [address] [place] [address], [place] [phone] * (ABNORMAL) Basic metabolic panel (04/17/2024 6:14 AM EST) Only the most recent of13 resultswithin the time period is included. Sodium 140 133 - 145 mmol/L LAB CHEMISTRY METHOD 04/17/2024 2:45 PM EST [facility] Potassium 4.0 3.5 - 5.5 mmol/L LAB CHEMISTRY METHOD 04/17/2024 2:45 PM EST [facility] Chloride 107 96 - 110 mmol/L LAB CHEMISTRY METHOD 04/17/2024 2:45 PM [facility] CO2 25 21 - 32 mmol/L LAB CHEMISTRY METHOD 04/17/2024 2:45 PM [facility] Anion Gap 8 3 - 11 LAB CHEMISTRY METHOD 04/17/2024 2:45 PM [facility] Glucose 116(H) 70 - 100 mg/dL LAB CHEMISTRY METHOD 04/17/2024 2:45 PM [facility] BUN 19 5 - 25 mg/dL LAB CHEMISTRY METHOD 04/17/2024 2:45 PM [facility] Creatinine 1.33(H) 0.50 - 1.10 mg/dL LAB CHEMISTRY METHOD 04/17/2024 2:45 PM [facility] LAB eGFR 45(L) >=60 mL/min/1. 73m2 LAB CHEMISTRY METHOD 04/17/2024 2:45 PM [facility] Comment:Calculation based on the??Chronic Kidney Disease Epidemiology Collaboration (CKD-EPI) equation refit??without adjustment for race. BUN/Creatinine Ratio 14.3 LAB CHEMISTRY METHOD 04/17/2024 2:45 PM [facility] Calcium 8.6 8.5 - 10.5 mg/dL LAB CHEMISTRY METHOD 04/17/2024 2:45 PM [facility] Blood Venous blood specimen / Unknown Venipuncture / Unknown 04/17/2024 6:14 AM EST 04/17/2024 10:58 AM EST us Gilson Davidson MD LAB BLOOD ORDERABLES Final Resul t [facility] [address] [place] [address], * Thyroid stimulating hormone with reflex to free t4 and free t3 (04/09/2024 6:31 AM EST) TSH 1.29 0.40 - 4.00 mcIU/mL LAB CHEMISTRY METHOD 04/09/2024 11:36 AM EST [facility] Blood Venous blood specimen / Unknown Venipuncture / Unknown 04/09/2024 6:31 AM EST 04/09/2024 9:10 AM EST Gilson Davidson MD LAB BLOOD ORDERABLES Final Resul t Performing Organization Address City/[facility]/ZIP Co de Phone Number [facility] [address] [place] [address], [place] [phone] * (ABNORMAL) Hemoglobin A1c (04/09/2024 6:31 AM EST) Hemoglobin A1C 7.8(H) <6.5 % LAB CHEMISTRY METHOD 04/09/2024 1:46 PM EST [facility] Mean Bld Glu Estim. 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
--- OUTSIDE RECORDS SUMMARY | 2024-04-19 12:50 | XMS_ITS | Encounter Summary ---
Author Organization [facility] Address [id number] [place] [phone] Care Team Providers Care Highway Maintenance Worker Name Role Phone Kristin Bellamy MD Primary Care Provider [phone] Encounter Details Date Type Department Care Team (Late st Contact Info) Description 02/20/2024 Lab Requisition [facility] Lab [address] [facility] [place] [address] Gilson Davidson MD [address] [facility] [address] [place], [phone] Hyperlipidemia, unspecified; Other specified diabetes mellitus [...] Sedimentation rate (02/21/2024 7:35 AM EST) Pathologist [facility] Sed Rate 35(H) 0 - 30 mm/hr LAB HEMETOLOGY METHOD 02/21/2024 11:29 AM EST [facility] Blood Venous blood specimen / Unknown Venipuncture / Unknown 02/21/2024 7:35 AM EST 02/21/2024 10:10 AM EST us Gilson Davidson MD LAB BLOOD ORDERABLES Final Resul t [facility] [address] [place] [address], * C-reactive protein (02/21/2024 7:35 AM EST) Pathologist [facility] C-Reactive Protein <0.29 <=0.50 mg/dL LAB CHEMISTRY METHOD 02/21/2024 11:53 AM EST [facility] Blood Venous blood specimen / Unknown Venipuncture / Unknown 02/21/2024 7:35 AM EST 02/21/2024 10:10 AM EST us Gilson Davidson MD LAB BLOOD ORDERABLES Final Resul t [facility] [address] [place] [address], * (ABNORMAL) Basic metabolic panel (02/21/2024 7:35 AM EST) Sodium 138 133 - 145 mmol/L LAB CHEMISTRY METHOD 02/21/2024 11:53 AM [facility] Potassium 4.4 3.5 - 5.5 mmol/L LAB CHEMISTRY METHOD 02/21/2024 11:53 AM [facility] Chloride 106 96 - 110 mmol/L LAB CHEMISTRY METHOD 02/21/2024 11:53 AM [facility] CO2 28 21 - 32 mmol/L LAB CHEMISTRY METHOD 02/21/2024 11:53 AM [facility] Anion Gap 4 3 - 11 LAB CHEMISTRY METHOD 02/21/2024 11:53 AM [facility] LAB Glucose 94 70 - 100 mg/dL LAB CHEMISTRY METHOD 02/21/2024 11:53 AM [facility] BUN 23 5 - 25 mg/dL LAB CHEMISTRY METHOD 02/21/2024 11:53 AM [facility] Creatinine 1.31(H) 0.50 - 1.10 mg/dL LAB CHEMISTRY METHOD 02/21/2024 11:53 AM [facility] LAB eGFR 46(L) >=60 mL/min/1. 73m2 LAB CHEMISTRY METHOD 02/21/2024 11:53 AM [facility] LAB Comment:Calculation based on the??Chronic Kidney Disease Epidemiology Collaboration (CKD-EPI) equation refit??without adjustment for race. BUN/Creatinine Ratio 17.6 LAB CHEMISTRY METHOD 02/21/2024 11:53 AM [facility] LAB Calcium 9.2 8.5 - 10.5 mg/dL LAB CHEMISTRY METHOD 02/21/2024 11:53 AM [facility] Blood Venous blood specimen / Unknown Venipuncture / Unknown 02/21/2024 7:35 AM EST 02/21/2024 10:10 AM EST us Gilson Davidson MD LAB BLOOD ORDERABLES Final Resul t [facility] [address] [place] [address], * (ABNORMAL) Complete blood count (02/21/2024 7:35 AM EST) WBC 8.6 4.8 - 10.8 K/mcL LAB HEMETOLOGY METHOD 02/21/2024 11:23 AM [facility] LAB RBC 4.20 3.80 - 4.80 M/[facility] LAB HEMETOLOGY METHOD 02/21/2024 11:23 AM [facility] LAB Hemoglobin 11.7 11.5 - 16.0 g/dL LAB HEMETOLOGY METHOD 02/21/2024 11:23 AM [facility] LAB Hematocrit 37.3 35.0 - 47.0 % LAB HEMETOLOGY METHOD 02/21/2024 11:23 AM [facility] LAB MCV 88.6 79.0 - 98.0 FL LAB HEMETOLOGY METHOD 02/21/2024 11:23 AM [facility] LAB MCH 27.8 27.0 - 32.0 pcg LAB HEMETOLOGY METHOD 02/21/2024 11:23 AM [facility] LAB MCHC 31.4(L) 32.0 - 37.0 g/dL LAB HEMETOLOGY METHOD 02/21/2024 11:23 AM [facility] LAB RDW 14.3 11.0 - 15.0 % LAB HEMETOLOGY METHOD 02/21/2024 11:23 AM [facility] LAB Platelets 464(H) 130 - 400 K/mcL LAB HEMETOLOGY METHOD 02/21/2024 11:23 AM EST [facility] MPV 10.2 7.0 - 11.0 FL LAB HEMETOLOGY METHOD 02/21/2024 11:23 AM EST [facility] NRBC 0.0 <1.0 % LAB HEMETOLOGY METHOD 02/21/2024 11:23 AM EST [facility] NRBC Absolute 0.00 <0.10 K/mcL LAB HEMETOLOGY METHOD 02/21/2024 11:23 AM EST [facility] Blood Venous blood specimen / Unknown Venipuncture / Unknown 02/21/2024 7:35 AM EST 02/21/2024 10:10 AM EST us Gilson Davidson MD LAB BLOOD ORDERABLES Final Resul t [facility] [address] [place] [address], documented in this encounter Visit Diagnoses Diagnosis Hyperlipidemia, unspecified Other specified diabetes mellitus with other specified complication (CMS/HCC) Other acute osteomyelitis, right ankle and foot (CMS/HCC) Type 2 diabetes mellitus without complications (CMS/HCC) Essential (primary) hypertension Unspecified essential hypertension documented in this encounter Care Teams Highway Maintenance Worker Relationship Specialty Start Date End Date Kristin Bellamy MD [address] PCP - General Internal Medicine 11/29/19 documented as of this encounter
--- OUTSIDE RECORDS SUMMARY | 2024-04-19 12:50 | XMS_ITS | Encounter Summary ---
Author Organization [facility] Address [address] [place] [phone] Care Team Providers Care Coffee Maker Servicer Name Role Phone Kristin Bellamy MD Primary Care Provider [phone] Encounter Details Date Type Department Care Team (Late st Contact Info) Description 03/12/2024 Lab Requisition [facility] Lab [address] [facility] [place] [address] Gilson Davidson MD [address] [facility] [address] [place], [phone] Type 2 diabetes mellitus [...] Sedimentation rate (03/13/2024 7:14 AM EST) Pathologist [facility] Sed Rate 76(H) 0 - 30 mm/hr LAB HEMETOLOGY METHOD 03/13/2024 1:03 PM EST [facility] Blood Venous blood specimen / Unknown Venipuncture / Unknown 03/13/2024 7:14 AM EST 03/13/2024 11:09 AM EST us Gilson Davidson MD LAB BLOOD ORDERABLES Final Resul t Performing Organization Address [facility]/ZIP Co de Phone Number [facility] [address] [place] [address], * (ABNORMAL) C-reactive protein (03/13/2024 7:14 AM EST) [facility] C-Reactive Protein 0.66(H) <=0.50 mg/dL LAB CHEMISTRY METHOD 03/13/2024 12:57 PM EST [facility] Blood Venous blood specimen / Unknown Venipuncture / Unknown 03/13/2024 7:14 AM EST 03/13/2024 11:09 AM EST Gilson Davidson MD LAB BLOOD ORDERABLES Final Resul t Performing Organization Address City/[facility]/ZIP Co de Phone Number [facility] [address] [place] [address], [place] [phone] * (ABNORMAL) Basic metabolic panel (03/13/2024 7:14 AM EST) [facility] Sodium 137 133 - 145 mmol/L LAB CHEMISTRY METHOD 03/13/2024 12:40 PM EST [facility] Potassium 5.2 3.5 - 5.5 mmol/L LAB CHEMISTRY METHOD 03/13/2024 12:40 PM [facility] Chloride 106 96 - 110 mmol/L LAB CHEMISTRY METHOD 03/13/2024 12:40 PM [facility] CO2 27 21 - 32 mmol/L LAB CHEMISTRY METHOD 03/13/2024 12:40 PM [facility] Anion Gap 4 3 - 11 LAB CHEMISTRY METHOD 03/13/2024 12:40 PM [facility] Glucose 83 70 - 100 mg/dL LAB CHEMISTRY METHOD 03/13/2024 12:40 PM [facility] BUN 28(H) 5 - 25 mg/dL LAB CHEMISTRY METHOD 03/13/2024 12:40 PM [facility] Creatinine 1.40(H) 0.50 - 1.10 mg/dL LAB CHEMISTRY METHOD 03/13/2024 12:40 PM [facility] eGFR 43(L) >=60 mL/min/1. 73m2 LAB CHEMISTRY METHOD 03/13/2024 12:40 PM [facility] Comment:Calculation based on the??Chronic Kidney Disease Epidemiology Collaboration (CKD-EPI) equation refit??without adjustment for race. BUN/Creatinine Ratio 20.0 LAB CHEMISTRY METHOD 03/13/2024 12:40 PM [facility] Calcium 9.2 8.5 - 10.5 mg/dL LAB CHEMISTRY METHOD 03/13/2024 12:40 PM [facility] Blood Venous blood specimen / Unknown Venipuncture / Unknown 03/13/2024 7:14 AM EST 03/13/2024 11:09 AM EST us Gilson Davidson MD LAB BLOOD ORDERABLES Final Resul t [facility] [address] [place] [address], * (ABNORMAL) Complete blood count (03/13/2024 7:14 AM EST) [facility] WBC 9.6 4.8 - 10.8 K/mcL LAB HEMETOLOGY METHOD 03/13/2024 12:54 PM [facility] RBC 4.40 3.80 - 4.80 M/mcL LAB HEMETOLOGY METHOD 03/13/2024 12:54 PM [facility] Hemoglobin 11.9 11.5 - 16.0 g/dL LAB HEMETOLOGY METHOD 03/13/2024 12:54 PM [facility] Hematocrit 37.9 35.0 - 47.0 % LAB HEMETOLOGY METHOD 03/13/2024 12:54 PM [facility] MCV 86.5 79.0 - 98.0 FL LAB HEMETOLOGY METHOD 03/13/2024 12:54 PM [facility] MCH 27.2 27.0 - 32.0 pcg LAB HEMETOLOGY METHOD 03/13/2024 12:54 PM [facility] MCHC 31.4(L) 32.0 - 37.0 g/dL LAB HEMETOLOGY METHOD 03/13/2024 12:54 PM [facility] RDW 14.2 11.0 - 15.0 % LAB HEMETOLOGY METHOD 03/13/2024 12:54 PM [facility] Platelets 456(H) 130 - 400 K/mcL LAB HEMETOLOGY METHOD 03/13/2024 12:54 PM [facility] MPV 10.3 7.0 - 11.0 FL LAB HEMETOLOGY METHOD 03/13/2024 12:54 PM [facility] NRBC 0.0 <1.0 % LAB HEMETOLOGY METHOD 03/13/2024 12:54 PM [facility] NRBC Absolute 0.00 <0.10 K/mcL LAB HEMETOLOGY METHOD 03/13/2024 12:54 PM EST [facility] Blood Venous blood specimen / Unknown Venipuncture / Unknown 03/13/2024 7:14 AM EST 03/13/2024 11:09 AM EST us Gilson Davidson MD LAB BLOOD ORDERABLES Final Resul t [facility] [address] [place] [address], documented in this encounter Visit Diagnoses Diagnosis Type 2 diabetes mellitus without complications (CMS/HCC) Essential (primary) hypertension Unspecified essential hypertension documented in this encounter Care Teams Coffee Maker Servicer Relationship Specialty Start Date End Date Kristin Bellamy MD [address] [facility] [address] [place], [place] PCP - General Internal Medicine 11/29/19 documented as of this encounter
--- OUTSIDE RECORDS SUMMARY | 2024-04-19 12:50 | XMS_ITS | Encounter Summary ---
Author Organization [facility] Address [id number] [place] [id number] Care Team Providers Care Certified Orthotic Fitter Name Role Phone Kristin Bellamy MD Primary Care Provider [phone] Encounter Details Date Type Department Care Team (Late st Contact Info) Description 03/26/[address] [facility] - Main Lab [address] [facility] [place] [address] Gilson Davidson MD 38 [facility] [address] [place], [address] Essential (primary) hypertension; Type 2 diabetes [...] Sedimentation rate (03/27/2024 7:55 AM EST) Pathologist [facility] Sed Rate 123(H) 0 - 30 mm/hr LAB HEMETOLOGY METHOD 03/27/2024 11:45 AM EST [facility] Blood Venous blood specimen / Unknown Venipuncture / Unknown 03/27/2024 7:55 AM EST 03/27/2024 11:01 AM EST us Gilson Davidson MD LAB BLOOD ORDERABLES Final Resul t Performing Organization Address [facility]/ZIP Co de Phone Number [facility] [address] [place] [address], * (ABNORMAL) C-reactive protein (03/27/2024 7:55 AM EST) [facility] C-Reactive Protein 5.12(H) <=0.50 mg/dL LAB CHEMISTRY METHOD 03/27/2024 11:56 AM EST [facility] Blood Venous blood specimen / Unknown Venipuncture / Unknown 03/27/2024 7:55 AM EST 03/27/2024 11:01 AM EST Gilson Davidson MD LAB BLOOD ORDERABLES Final Resul t Performing Organization Address City/[facility]/ZIP Co de Phone Number [facility] [address] [place] [address], [place] [phone] * (ABNORMAL) Basic metabolic panel (03/27/2024 7:55 AM EST) [facility] Sodium 137 133 - 145 mmol/L LAB CHEMISTRY METHOD 03/27/2024 11:54 AM EST [facility] Potassium 4.5 3.5 - [...] MD LAB BLOOD ORDERABLES Final Resul t [facility] [address] [place] [address], * (ABNORMAL) Complete blood count (03/27/2024 7:55 AM EST) [facility] WBC 7.6 4.8 - 10.8 K/mcL LAB [...] LAB HEMETOLOGY METHOD 03/27/2024 11:35 AM EST [facility] Blood Venous blood specimen / Unknown Venipuncture / Unknown 03/27/2024 7:55 AM EST 03/27/2024 11:01 AM EST us Gilson Davidson MD LAB BLOOD ORDERABLES Final Resul t [facility] [address] [place] [address], documented in this encounter Visit Diagnoses Diagnosis Essential (primary) hypertension Unspecified essential hypertension Type 2 diabetes mellitus without complications (CMS/HCC) documented in this encounter Care Teams Certified Orthotic Fitter Relationship Specialty Start Date End Date Kristin Bellamy MD 12[address] [facility] [address] [place], [place] PCP - General Internal Medicine 11/29/19 documented as of this encounter
--- OUTSIDE RECORDS SUMMARY | 2024-04-19 12:50 | XMS_ITS | Encounter Summary ---
Author Organization [facility] Address [address] [place] [id number] Care Team Providers Care Release Engineer Name Role Phone Kristin Bellamy MD Primary Care Provider [phone] Encounter Details Date Type Department Care Team (Late st Contact Info) Description 02/13/2024 Lab Requisition [facility] - Main Lab 299 [facility] [place] [address] Gilson Davidson MD 38 [facility] 204 [place], [address] Type 2 diabetes mellitus without complications [...] Sedimentation rate (02/15/2024 6:19 AM EST) Pathologist [facility] Sed Rate 67(H) 0 - 30 mm/hr LAB HEMETOLOGY METHOD 02/15/2024 10:39 AM EST [facility] Blood Venous blood specimen / Unknown Venipuncture / Unknown 02/15/2024 6:19 AM EST 02/15/2024 9:41 AM EST us Gilson Davidson MD LAB BLOOD ORDERABLES Final Resul t Performing Organization Address [place]/[facility]/ZIP Co de Phone Number [facility] [address] [place] [address], * C-reactive protein (02/15/2024 6:19 AM EST) [facility] C-Reactive Protein <0.29 <=0.50 mg/dL LAB CHEMISTRY METHOD 02/15/2024 11:53 AM EST [facility] Blood Venous blood specimen / Unknown Venipuncture / Unknown 02/15/2024 6:19 AM EST 02/15/2024 9:40 AM EST Gilson Davidson MD LAB BLOOD ORDERABLES Final Resul t Performing Organization Address City/[facility]/ZIP Co de Phone Number [facility] [address] [place] [address], * (ABNORMAL) Basic metabolic panel (02/15/2024 6:19 AM EST) Pathologist [facility] Sodium 139 133 - 145 mmol/L LAB CHEMISTRY METHOD 02/15/2024 11:53 AM EST [facility] Potassium 4.5 3.5 - 5.5 mmol/L LAB CHEMISTRY METHOD 02/15/2024 11:53 AM [facility] Chloride 109 96 - 110 mmol/L LAB CHEMISTRY METHOD 02/15/2024 11:53 AM [facility] CO2 28 21 - 32 mmol/L LAB CHEMISTRY METHOD 02/15/2024 11:53 AM [facility] Anion Gap 2(L) 3 - 11 LAB CHEMISTRY METHOD 02/15/2024 11:53 AM [facility] Glucose 192(H) 70 - 100 mg/dL LAB CHEMISTRY METHOD 02/15/2024 11:53 AM [facility] BUN 24 5 - 25 mg/dL LAB CHEMISTRY METHOD 02/15/2024 11:53 AM [facility] Creatinine 1.17(H) 0.50 - 1.10 mg/dL LAB CHEMISTRY METHOD 02/15/2024 11:53 AM [facility] eGFR 53(L) >=60 mL/min/1. 73m2 LAB CHEMISTRY METHOD 02/15/2024 11:53 AM [facility] Comment:Calculation based on the??Chronic Kidney Disease Epidemiology Collaboration (CKD-EPI) equation refit??without adjustment for race. BUN/Creatinine Ratio 20.5 LAB CHEMISTRY METHOD 02/15/2024 11:53 AM [facility] Calcium 8.8 8.5 - 10.5 mg/dL LAB CHEMISTRY METHOD 02/15/2024 11:53 AM [facility] Blood Venous blood specimen / Unknown Venipuncture / Unknown 02/15/2024 6:19 AM EST 02/15/2024 9:40 AM EST us Gilson Davidson MD LAB BLOOD ORDERABLES Final Resul t [facility] [address] [place] [address], * (ABNORMAL) Complete blood count (02/15/2024 6:19 AM EST) [facility] Signature WBC 6.7 4.8 - 10.8 K/mcL LAB HEMETOLOGY METHOD 02/15/2024 10:56 AM [facility] RBC 3.80 3.80 - 4.80 M/mcL LAB HEMETOLOGY METHOD 02/15/2024 10:56 AM [facility] Hemoglobin 10.6(L) 11.5 - 16.0 g/dL LAB HEMETOLOGY METHOD 02/15/2024 10:56 AM [facility] Hematocrit 34.4(L) 35.0 - 47.0 % LAB HEMETOLOGY METHOD 02/15/2024 10:56 AM [facility] MCV 89.8 79.0 - 98.0 FL LAB HEMETOLOGY METHOD 02/15/2024 10:56 AM [facility] MCH 27.7 27.0 - 32.0 pcg LAB HEMETOLOGY METHOD 02/15/2024 10:56 AM [facility] MCHC 30.8(L) 32.0 - 37.0 g/dL LAB HEMETOLOGY METHOD 02/15/2024 10:56 AM [facility] RDW 14.1 11.0 - 15.0 % LAB HEMETOLOGY METHOD 02/15/2024 10:56 AM [facility] Platelets 334 130 - 400 K/mcL LAB HEMETOLOGY METHOD 02/15/2024 10:56 AM [facility] MPV 10.7 7.0 - 11.0 FL LAB HEMETOLOGY METHOD 02/15/2024 10:56 AM [facility] NRBC 0.0 <1.0 % LAB HEMETOLOGY METHOD 02/15/2024 10:56 AM [facility] NRBC Absolute 0.00 <0.10 K/mcL LAB HEMETOLOGY METHOD 02/15/2024 10:56 AM EST [facility] Blood Venous blood specimen / Unknown Venipuncture / Unknown 02/15/2024 6:19 AM EST 02/15/2024 9:41 AM EST us Gilson Davidson MD LAB BLOOD ORDERABLES Final Resul t [facility] [address] [place] [address], documented in this encounter Visit Diagnoses Diagnosis Type 2 diabetes mellitus without complications (CMS/HCC) Essential (primary) hypertension Unspecified essential hypertension documented in this encounter Care Teams Release Engineer Relationship Specialty Start Date End Date Kristin Bellamy MD 12[address] [facility] [address] [place], [place] PCP - General Internal Medicine 11/29/19 documented as of this encounter
--- OUTSIDE RECORDS SUMMARY | 2024-04-19 12:50 | XMS_ITS | Encounter Summary ---
Author Organization [facility] Address [address] [place] [phone] Care Team Providers Care Die Technician Name Role Phone Kristin Bellamy MD Primary Care Provider [phone] Encounter Details Date Type Department Care Team (Late st Contact Info) Description 04/09/2024 Lab Requisition [facility] - Main Lab 299 [facility] [place] [address] Gilson Davidson MD 38 [facility] [address] [place], [address] Essential (primary) hypertension; Hypothyroidism, unspecified; Type 2 diabetes mellitus without complications (CMS/HCC); Dependence on renal dialysis (CMS/HCC) Social History Tobacco Use Types Packs/Day [...] Procedure Name Priority Date/Time Associated Diagnosis Comments THYROID STIMULATING HORMONE WITH REFLEX TO FREE T4 AND FREE T3 Routine 04/09/2024 6:31 AM EST Essential (primary) hypertension Hypothyroidism, unspecified Type 2 diabetes mellitus without complications (CMS/HCC) Dependence on renal dialysis (CMS/HCC) COMPLETE BLOOD COUNT Routine 04/09/2024 6:31 AM EST Essential (primary) hypertension Hypothyroidism, unspecified Type 2 diabetes mellitus without complications (CMS/HCC) Dependence on renal dialysis (CMS/HCC) HEMOGLOBIN A1C Routine 04/09/2024 6:31 AM EST Essential (primary) hypertension Hypothyroidism, unspecified Type 2 diabetes mellitus without complications (CMS/HCC) Dependence on renal dialysis (CMS/HCC) BASIC METABOLIC PANEL Routine 04/09/2024 6:31 AM EST Essential (primary) hypertension Hypothyroidism, unspecified Type 2 diabetes mellitus without complications (CMS/HCC) Dependence on renal dialysis (CMS/HCC) documented in this encounter Results * (ABNORMAL) Hemoglobin A1c (04/09/2024 6:31 AM EST) Hemoglobin A1C 7.8(H) <6.5 % LAB CHEMISTRY METHOD 04/09/2024 1:46 PM EST [facility] Mean Bld Glu Estim. 177 mg/dL LAB CHEMISTRY METHOD 04/09/2024 1:46 PM EST [facility] Blood Venous blood specimen / Unknown Venipuncture / Unknown 04/09/2024 6:31 AM EST 04/09/2024 9:10 AM EST Gilson Davidson MD LAB BLOOD ORDERABLES Final Resul t Performing Organization Address City/[facility]/ZIP Co de Phone Number [facility] [address] [place] [address], * Thyroid stimulating hormone with reflex to free t4 and free t3 (04/09/2024 6:31 AM EST) TSH 1.29 0.40 - 4.00 mcIU/mL LAB CHEMISTRY METHOD 04/09/2024 11:36 AM EST [facility] Blood Venous blood specimen / Unknown Venipuncture / Unknown 04/09/2024 6:31 AM EST 04/09/2024 9:10 AM EST Gilson Davidson MD LAB BLOOD ORDERABLES Final Resul t [facility] [address] [place] [address], * (ABNORMAL) Basic metabolic panel (04/09/2024 6:31 AM EST) Sodium 142 133 - 145 mmol/L LAB CHEMISTRY METHOD 04/09/2024 11:[address] [facility] Potassium 4.0 3.5 - 5.5 mmol/L LAB CHEMISTRY METHOD 04/09/2024 11:[address] [facility] Chloride 109 96 - 110 mmol/L LAB CHEMISTRY METHOD 04/09/2024 11:[address] [facility] CO2 24 21 - 32 mmol/L LAB CHEMISTRY METHOD 04/09/2024 11:[address] [facility] Anion Gap 9 3 - 11 LAB CHEMISTRY METHOD 04/09/2024 11:[address] [facility] Glucose 96 70 - 100 mg/dL LAB CHEMISTRY METHOD 04/09/2024 11:[address] [facility] BUN 18 5 - 25 mg/dL LAB CHEMISTRY METHOD 04/09/2024 11:[address] [facility] Creatinine 1.26(H) 0.50 - 1.10 mg/dL LAB CHEMISTRY METHOD 04/09/2024 11:[address] [facility] eGFR 48(L) >=60 mL/min/1. 73m2 LAB CHEMISTRY METHOD 04/09/2024 11:[address] [facility] Comment:Calculation based on the??Chronic Kidney Disease Epidemiology Collaboration (CKD-EPI) equation refit??without adjustment for race. BUN/Creatinine Ratio 14.3 LAB CHEMISTRY METHOD 04/09/2024 11:[address] [facility] Calcium 8.9 8.5 - 10.5 mg/dL LAB CHEMISTRY METHOD 04/09/2024 11:[address] [facility] Blood Venous blood specimen / Unknown Venipuncture / Unknown 04/09/2024 6:31 AM EST 04/09/2024 9:10 AM EST us Gilson Davidson MD LAB BLOOD ORDERABLES Final Resul t [facility] [address] [place] [address], [place] [phone] * (ABNORMAL) Complete blood count (04/09/2024 6:31 AM EST) WBC 9.4 4.8 - 10.8 K/mcL LAB HEMETOLOGY METHOD 04/09/2024 10:[address] [facility] RBC 3.60(L) 3.80 - 4.80 M/mcL LAB HEMETOLOGY METHOD 04/09/2024 10:[address] [facility] Hemoglobin 9.5(L) 11.5 - 16.0 g/dL LAB HEMETOLOGY METHOD 04/09/2024 10:[address] [facility] Hematocrit 30.7(L) 35.0 - 47.0 % LAB HEMETOLOGY METHOD 04/09/2024 10:[address] [facility] MCV 84.3 79.0 - 98.0 FL LAB HEMETOLOGY METHOD 04/09/2024 10:[address] [facility] MCH 26.1(L) 27.0 - 32.0 pcg LAB HEMETOLOGY METHOD 04/09/2024 10:[address] [facility] MCHC 30.9(L) 32.0 - 37.0 g/dL LAB HEMETOLOGY METHOD 04/09/2024 10:[address] [facility] RDW 14.5 11.0 - 15.0 % LAB HEMETOLOGY METHOD 04/09/2024 10:[address] [facility] Platelets 445(H) 130 - 400 K/mcL LAB HEMETOLOGY METHOD 04/09/2024 10:30 AM EST [facility] MPV 9.4 7.0 - 11.0 FL LAB HEMETOLOGY METHOD 04/09/2024 10:30 AM EST [facility] NRBC 0.0 <1.0 % LAB HEMETOLOGY METHOD 04/09/2024 10:30 AM EST [facility] NRBC Absolute 0.00 <0.10 K/mcL LAB HEMETOLOGY METHOD 04/09/2024 10:30 AM EST [facility] Blood Venous blood specimen / Unknown Venipuncture / Unknown 04/09/2024 6:31 AM EST 04/09/2024 9:10 AM EST us Gilson Davidson MD LAB BLOOD ORDERABLES Final Resul t [facility] [address] [place] [address], documented in this encounter Visit Diagnoses Diagnosis Essential (primary) hypertension Unspecified essential hypertension Hypothyroidism, unspecified Type 2 diabetes mellitus without complications (CMS/HCC) Dependence on renal dialysis (CMS/HCC) Renal dialysis status documented in this encounter Care Teams Die Technician Relationship Specialty Start Date End Date Kristin Bellamy MD [address] PCP - General Internal Medicine 11/29/19 documented as of this encounter
--- OUTSIDE RECORDS SUMMARY | 2024-04-19 12:50 | XMS_ITS | Continuity of Care Document ---
Author Organization [facility], [facility] Address [address] [place] [address] Care Team Providers Care 3D Specialist Name Role Phone [facility] OTHER GA [...] Address Organization Details Recorded Time Vasovagal syncope [id number] Active 2019 ANN PLAENCIA [address] , [address], [place], [address], [facility] 0 10:46:40 Acute insomnia 412158452 Active 2019 ANN PALENCIA [address], [address], [place], [address], [facility] 0 12:20:58 Seasonal allergy 299545149 Active 2023 Coco Patiño NP [address], [address], [place], [address], [facility] 4 08:54:18 Constipation 98163320 Active 2023 Coco Patiño NP [address], [address], [place], [address], [facility] 4 08:55:05 Depressive disorder 49005027 Active 2023 Coco Patiño NP [address], [address], [place], [address], [facility] 4 09:18:55 Fracture of neck of femur 8882043 Active 2023 Coco Patiño NP [address], [address], [place], [address], [facility] 4 09:23:30 Non-toxic multinodular goiter 60153169 Active 2023 Kellie Padilla MD [address], [address], [place], [address], [facility] 4 15:57:10 Diabetes mellitus 43772270 Active 2017 ANN PALENCIA [address], [address], [place], [address], [facility] 8 14:10:02 Neuropathy due to diabetes mellitus 952805303 Active 2017 ANN PALENCIA [address], [address], [place], [address], [facility] 8 14:10:12 Asthma 042269795 Active 2017 ANN PALENCIA [address], [address], [place], [address], [facility] 8 14:10:19 Essential hypertension 22938697 Active 2017 ANN PALENCIA [address], [address], [place], [address], [facility] 8 14:10:38 Diabetic foot ulcer 985615595 Active 2017 ANN PALENCIA [address], [address], [place], [address], [facility] 8 14:11:07 Charcot's joint of foot 760009817 Active 2017 ANN PALENCIA [address], [address], [place], [address], [facility] 8 14:11:40 Cellulitis 223431535 Active 2017 ANN PALENCIA [address], [address], [place], [address], [facility] 8 14:11:51 Chronic kidney disease stage 3 189591838 Active 2017 ANN PALENCIA [address], [place], [address], [facility] 8 14:12:00 Osteomyeliti s of ankle AND/OR foot 82650290 Active 2017 right plantar foot GUSTAVO PALENCIAP [address], [address], [place], [address], [facility] 8 14:13:20 Sepsis 90154533 Active 2017 group b strep ANN PALENCIA [address], [place], [address], [facility] 8 14:15:46 Mixed hyperlipidem ia 662084549 Active 2017 ANN PALENCIA [address], [place], [address], [facility] 8 14:20:07 Anemia 014562094 Active 2017 ANN PALENCIA [address], [place], [address], [facility] 8 14:20:36 Gastroesopha geal reflux disease without esophagitis 629731047 Active 2017 ANN PALENCIA [address], [place], [address], [facility] 8 14:20:48 Goiter 1276241 Active 2017 ANN PALENCIA [address], [address], [place], [address], [facility] 8 08:06:57 Problem Notes None recorded. Medical Equipment None Reported. Allergies Allergen ID Allergen Name Allergen Category Reaction Reaction Severity Criticality Documentation Date Start Date Code Code System Note Provider Name and Address Organization Details Recorded Time 48651 Product containin g penicilli n (product) medicatio n rash Not available Not available 09/01/2017 70653 8001 SNOMED Not Available Not Available Not Available 44389 Product containin g cephalosp concha (product) medicatio n rash Not available Not available 09/01/2017 97060 9009 SNOMED Not Available Not Available Not Available 62946 erythromy cesar medicatio n Not available Not available Not available 09/01/2017 4053 RxNorm Not Available Not Available Not Available 82273 amlodipin e medicatio n Not available Not available Not available 08/07/2019 06280 RxNorm Not Available Not Available Not Available 24611 cat dander environme nt Not available Not available Not available 08/07/2019 49748 UNK Not Available Not Available Not Available 76560 Canis lupus familiari s extract environme nt Not available Not available Not available 08/07/2019 24983 4 RxNorm Not Available Not Available Not Available 21934 Keflex medicatio n Not available Not available Not available 08/07/2019 55293 7 RxNorm Not Available Not Available Not Available 62669 clindamyc in Not available Not available Not available Not available 02/13/2024 2582 RxNorm Not Available Not Available Not Available 86316 olmesarta n medicatio n Not available Not available Not available 02/13/2024 60675 4 RxNorm Not Available Not Available Not Available 14844 Shellfish (substanc e) food,medi cation Not available Not available Not available 02/13/2024 03435 9006 SNOMED Not Available Not Available Not [...] mm[Hg] 63 mm[Hg] JOHN KAYE NP [address], [address], [place], [address] - [facility] 5 09:35:47 Social History Question Answer Notes LastModified by Organization Details LastModified Time Tobacco Smoking Status Former Smoker smoked 1 pack/week, quit in 2001 Kellie Padilla MD [address], [address], [place], [address], [facility] 01/09/2024 19:33:16 Do You Have An Advance Directive? Yes Cpr, Transfer To Hosp, Short Term Dialysis, Art Nutrition And Hydration Okay NO Intubation Signed Information not available 01/05/2024 What Is Your Level Of Alcohol Consumption? None [id number] Information not available 12/10/2019 How Much Tobacco Do You Chew? None [id number] Information not available 12/10/2019 What Is Your Code Status? DNI Information not available 01/09/2024 Do You Or Have You Ever Used E-cigarettes Or Vape? Never Used Electronic Cigarettes [id number] Information not available 12/10/2019 Where Do You Live? SingleLevelHouse Lives Alone, Has Ramp Information not available 01/09/2024 Legal Guardian? No Information not available 01/09/2024 Do You Have A Medical Power Of Supervisor Anodizing? Yes Information not available 01/09/2024 What Was The Date Of Your Most Recent Tobacco Screening? 01/05/2024 Information not available 01/05/2024 Do You Have An Out Of Hospital DNR? No Information not available 01/09/2024 What Is Your Relationship Status? Information not available 01/09/2024 Do You Or Have You Ever Used Smokeless Tobacco? Never Used Smokeless Tobacco [id number] Information not available 12/10/2019 How Much Tobacco Do You Smoke? No Information not available 01/09/2024 Do You Use Any Illicit Or Recreational Drugs? No Information not available 01/09/2024 Has Tobacco Cessation Counseling Been Provided? No N/a As Pt No Longer Smokes Information not available 01/09/2024 How Many Years Have You Smoked Tobacco? 20 [id number] Information not available 12/10/2019 Do You Or [...] SNOMED-CT Code Diagnosis ICD10 Code Diagnosis Note [id number] JOHN KAYE NP [facility] [address] [place] [address] 02/28/2024 13:35:19 02/29/2024 16:23:48 Essential hypertension 99385443 I10 Still running on the higher sideCurren tly on:hydrala zine to 50 mg bid - just increased 02/18 - consider tid dosinglosa rtan 100 mg qd.Monitor BP and labs.cont adjusting prn Non-toxic multinodular goiter 15580271 E04.2 hx ofpt requesting records from [facility] regarding left goiter biopsy done on 11/23/23, results obtained and benign.she does have large left neck goiter and needs fu02/22/24 referral to [facility] endocrinol ogy requested Osteomyeli tis of ankle AND/OR foot 83135420 M86.8X7 labs and infection resolvingC ompleted abx IV and probioticF /U with [facility] ID, Dr. Carlton, [phone] 22Monitor CBC/BMP/ES R/CRP weekly on Wednesdays and fax to ID.Continu e APAP 650 mg q 4 hrs prn for pain.monit or for s/s of infectionp icc removed on 02/18 Diabetic foot ulcer 3710 78359 L97.519 Continue wound care as ordered.Mo nitor for healing. Asthenia 40727292 R53.1 Remains deconditio jamal.Needs PT/OT for strengthen ing, balance, gait training, safety and function.C ontinue fall precaution s.Monitor for safety. Fracture o f neck of femur 2787374 S72.002A Recovering well from hemiarthro plasty on 11/28.PT/O T as above.F/U with ortho as planned.AP AP prn painfu with Dr schmidt on 02/22, requesting office note for review Pressure i njury of sacral region of back 697229660 L89.159 Continue wound care as ordered.Mo nitor for healing. Chronic ki dney disease stage 3 294322397 N18.31 Back to baseline.C ontinue to avoid nephrotoxi c meds as able.Monit or labs.Renal consult prn. Diabetes mellitus 680902 09 E11.21 Sugars in good control since here. stableHgA1 C 6.4Continu elantus 20U qd and SSIMonitor fingerstic ks TID and HgA1C q 3 months. Gastroesop hageal reflux disease without esophagitis 822271072 K21.9 No current sxs, on no meds.cont omeprazole qdzofran 4 mg po prn q 6Monitor for GI sxs. Anemia 715812328 D50.8 Mild at baseline, likely due to CKD. stableWors ened after hip surgery as expected.C ontinueFeS O4 325 mg qdMonitor labs Depressive disorder 3548 9007 F33.8 Mood good today.Cont inuesertra line 50 mg qdMonitor mood.Psych consult prn. [id number] Coco Patiño NP [address] [address] 02/29/2024 13:36:58 03/01/2024 15:08:25 Essential hypertension 97856442 I10 BP high for some time now even with med increases, 165/80 and running on high side still increase hydralazin e from 50 mg bid to tidcontlos abigail 100 mg qd.Monitor BP and labs.cont adjusting prn Non-toxic multinodular goiter 38183328 E04.2 hx ofpt requesting records from [facility] regarding left goiter biopsy done on 11/23/23, results obtained and benign with less than 4% malignancy rateshe does have large left neck goiter and needs fu02/22/24 referral to [facility] endocrinol ogy requested Osteomyeli tis of ankle AND/OR foot 23689887 M86.8X7 labs and infection resolvingf ollowed by wound team hereComple mikal abx IV and probioticF /U with [facility] ID, Dr. Carlton, [phone] 22Monitor CBC/BMP/ES R/CRP weekly on Wednesdays and fax to ID.Continu eAPAP 650 mg q 4 hrs prn for pain.monit or for s/s of infectionp icc removed on 02/18 and no fevers, chills or s/s of infection Diabetic foot ulcer 3710 95234 L97.519 Continue wound care as ordered.Mo nitor for healing. Asthenia 95390045 R53.1 Remains deconditio jamal.Needs PT/OT for strengthen ing, balance, gait training, safety and function.C ontinue fall precaution s.Monitor for safety. Fracture o f neck of femur 8709686 S72.002A Recovering well from hemiarthro plasty on 11/28.PT/O T as above.F/U with ortho as planned.AP AP prn painfu with Dr schmidt on 02/22, requesting office note for review, pt states no new changes Pressure i njury of sacral region of back 197363232 L89.159 Continue wound care as ordered.Mo nitor for healing. Chronic ki dney disease stage 3 799478895 N18.31 Back to baseline.C ontinue to avoid nephrotoxi c meds as able.Monit or labs.Renal consult prn. Diabetes mellitus 539334 09 E11.21 Sugars in good control since here. stable 130s latelyHgA1 C 6.4Continu elantus 20U qd and SSIMonitor fingerstic ks TID and HgA1C q 3 months. [id number] Gilson Davidson MD [address] [address] 03/06/2024 10:15:20 03/07/2024 11:03:13 Essential hypertension 36628594 I10 hydralazin e recently increasedm onitor bp and titrate if remains elevated Osteomyeli tis of ankle AND/OR foot 51599646 M86.8X7 completed IV abxstill with right foot ulcer requiring wound carecoordi panchito with ID and update with concerns Asthenia 92122779 R53.1 ambulating short distance with walker and therapyhow ever still requiring 24/7 carePatien t lives alone currently unable to be cared for in communityI nsurance is dischargin g however social work is assisting with [facility] Chronic ki dney disease stage 3 934182491 N18.31 monitor renal functionav oid nephrotoxi c meds as ablenephro consult prn [id number] Coco Patiño NP [address] [address] 03/15/2024 08:39:43 03/26/2024 13:38:06 Osteomyelitis of ankle AND/OR foot 30525309 M86.8X7 completed IV abxstill with right foot ulcer requiring wound care team and now new malodor and callous open with drainage start doxycyclin e 100 mg po bid x 10days with probiotic and reevalfu with ID and update with concerns prnwound team to follow for debridemen t and local carefollow bmp and cbc weekly Asthenia 27418538 R53.1 ambulating short distance with walker and therapyhow ever still requiring 05/09 carePatien t lives alone currently unable to be cared for in communitys ocial work to cont for safe dc plan with ready, she is currently requiring abx for foot infection and has open wound to right charcot foot causing balance issues Essential hypertension 58423771 I10 bps 130s post meds with recent increases of meds belowhydra lazine 50 mg po tidlosarta n 200 mg po qdmonitor bp and titrate if remains elevated Chronic ki dney disease stage 3 506323118 N18.31 monitor renal functionav oid nephrotoxi c meds as ablenephro consult prn Nausea, vo miting and diarrhea 8460462 R11.2 resolved with mild case of nausea, vomiting, and diarrheazo andreina and immodium prnencoura ge po fluidsmoni tor for need for iVF [id number] JOHN KAYE NP [address] [address] 03/27/2024 09:18:24 03/28/2024 13:24:31 Osteomyelitis of ankle AND/OR foot 20367060 M86.8X7 completed IV abxstill with right foot ulcer - referred back to wound care due to decline in status.Com pleted doxycyclin e x 10 dWound debrided 03/26 - now with granular wound bed.Contin ue collagen and alginate dressing qd.VSS except for elevated BPfu with ID and update with concerns prnfollow bmp and cbc weekly Essential hypertension 51588066 I10 BP still runs on the higher side.Curre ntly on:hydrala zine 50 mg po tid -> increase to qid/q 6 hrslosarta n 200 mg po qdmonitor bp and titrate if remains elevated Asthenia 39458709 R53.1 ambulating short distance with walker and therapyhow ever still requiring 24/ carePatien t lives alone currently unable to be cared for in communitys ocial work to cont for safe dc plan with ready, she is currently requiring abx for foot infection and has open wound to right charcot foot causing balance issues Chronic ki dney disease stage 3 485584738 N18.31 monitor renal functionav oid nephrotoxi c meds as ablenephro consult prn Non-toxic multinodular goiter 83366790 E04.2 hx ofpt requesting records from [facility] regarding left goiter biopsy done on 11/23/23, results obtained and benign.she does have large left neck goiter and needs fu02/22/24 referral to [facility] endocrinol ogy requested, appt. set for 04/19 Diabetic foot ulcer 3710 23415 L97.519 Continue wound care as ordered. see above.Tressa beyer for healing. Fracture o f neck of femur 8954885 S72.002A Recovering well from hemiarthro plasty on 11/28.F/U with ortho as planned.AP AP prn pain Diabetes mellitus 497902 09 E11.21 Sugars in good control since here. stableHgA1 C 6.4Continu elantus 20U qd and SSIMonitor fingerstic ks TID and HgA1C q 3 months. Gastroesop hageal reflux disease without esophagitis 916734955 K21.9 No current sxs, on no meds.cont omeprazole qdzofran 4 mg po prn q 6Monitor for GI sxs. Anemia 657665283 D50.8 Mild at baseline, likely due to [...] Hughes Member ID Guarantor Name 03/27/2024 1 [facility]: MEDICARE HMO BLUE (MEDICARE REPLACEMENT HMO) [id number] Olga Kat [id number] Olga Kat Notes Date Note Type [...] adjustment.BS in good control, mostly 100s.Referred to [facility] endocrine for assessment of chronic left neck [...] fx s/p hemiarthroplasty. JOHN KAYE NP [address], [address], [place], [address], [facility] [employer] 03/27/2024 09:56:45 OBGyn Episode No OBEpisode recorded.
--- OUTSIDE RECORDS SUMMARY | 2024-04-19 12:50 | XMS_ITS | Encounter Summary ---
Author Organization [facility] Address [address] [place] [address] Care Team Providers Care Extractor Operator Name Role Phone Kristin Bellamy MD Primary Care Provider [phone] Encounter Details Date Type Department Care Team (Late st Contact Info) Description 01/16/2024 Lab Requisition [facility] - Main Lab [address] [facility] [place] [address] Gilson Davidson MD [address] [facility] [address] [place], [address] Type 2 diabetes mellitus without complications [...] LAB HEMETOLOGY METHOD 01/17/2024 11:56 AM EST [facility] Blood Venous blood specimen / Unknown Venipuncture / Unknown 01/17/2024 6:11 AM EST 01/17/2024 10:22 AM EST us Gilson Davidson MD LAB BLOOD ORDERABLES Final Resul t Performing Organization Address [facility]/ZIP Co de Phone Number [facility] [address] [place] [address], * (ABNORMAL) C-reactive protein (01/17/2024 6:11 AM EST) [facility] C-Reactive Protein 0.58(H) <=0.50 mg/dL LAB CHEMISTRY METHOD 01/17/2024 12:14 PM EST [facility] Blood Venous blood specimen / Unknown Venipuncture / Unknown 01/17/2024 6:11 AM EST 01/17/2024 10:22 AM EST us Gilson Davidson MD LAB BLOOD ORDERABLES Final Resul t Performing Organization Address City/[facility]/ZIP Co de Phone Number [facility] [address] [place] [address], [place] [phone] * (ABNORMAL) Basic metabolic panel (01/17/2024 6:11 AM EST) Pathologist [facility] Sodium 140 133 - 145 mmol/L LAB CHEMISTRY METHOD 01/17/2024 12:13 PM EST [facility] Potassium 4.7 3.5 - 5.5 mmol/L LAB CHEMISTRY METHOD 01/17/2024 12:13 PM [facility] Chloride 109 96 - 110 mmol/L LAB CHEMISTRY METHOD 01/17/2024 12:13 PM [facility] CO2 24 21 - 32 mmol/L LAB CHEMISTRY METHOD 01/17/2024 12:13 PM [facility] Anion Gap 7 3 - 11 LAB CHEMISTRY METHOD 01/17/2024 12:13 PM [facility] Glucose 159(H) 70 - 100 mg/dL LAB CHEMISTRY METHOD 01/17/2024 12:13 PM [facility] BUN 26(H) 5 - 25 mg/dL LAB CHEMISTRY METHOD 01/17/2024 12:13 PM [facility] Creatinine 1.27(H) 0.50 - 1.10 mg/dL LAB CHEMISTRY METHOD 01/17/2024 12:13 PM [facility] eGFR 48(L) >=60 mL/min/1. 73m2 LAB CHEMISTRY METHOD 01/17/2024 12:13 PM [facility] Comment:Calculation based on the??Chronic Kidney Disease Epidemiology Collaboration (CKD-EPI) equation refit??without adjustment for race. BUN/Creatinine Ratio 20.5 LAB CHEMISTRY METHOD 01/17/2024 12:13 PM [facility] Calcium 9.0 8.5 - 10.5 mg/dL LAB CHEMISTRY METHOD 01/17/2024 12:13 PM [facility] Blood Venous blood specimen / Unknown Venipuncture / Unknown 01/17/2024 6:11 AM EST 01/17/2024 10:22 AM EST us Gilson Davidson MD LAB BLOOD ORDERABLES Final Resul t [facility] [address] [place] [address], * (ABNORMAL) Complete blood count (01/17/2024 6:11 AM EST) [facility] WBC 7.9 4.8 - 10.8 K/mcL LAB HEMETOLOGY METHOD 01/17/2024 11:31 AM [facility] RBC 3.50(L) 3.80 - 4.80 M/mcL LAB HEMETOLOGY METHOD 01/17/2024 11:31 AM [facility] Hemoglobin 9.8(L) 11.5 - 16.0 g/dL LAB HEMETOLOGY METHOD 01/17/2024 11:31 AM [facility] Hematocrit 31.6(L) 35.0 - 47.0 % LAB HEMETOLOGY METHOD 01/17/2024 11:31 AM [facility] MCV 90.3 79.0 - 98.0 FL LAB HEMETOLOGY METHOD 01/17/2024 11:31 AM [facility] MCH 28.0 27.0 - 32.0 pcg LAB HEMETOLOGY METHOD 01/17/2024 11:31 AM [facility] MCHC 31.0(L) 32.0 - 37.0 g/dL LAB HEMETOLOGY METHOD 01/17/2024 11:31 AM [facility] RDW 13.6 11.0 - 15.0 % LAB HEMETOLOGY METHOD 01/17/2024 11:31 AM [facility] Platelets 303 130 - 400 K/mcL LAB HEMETOLOGY METHOD 01/17/2024 11:31 AM [facility] MPV 10.3 7.0 - 11.0 FL LAB HEMETOLOGY METHOD 01/17/2024 11:31 AM [facility] NRBC 0.0 <1.0 % LAB HEMETOLOGY METHOD 01/17/2024 11:31 AM [facility] NRBC Absolute 0.00 <0.10 K/mcL LAB HEMETOLOGY METHOD 01/17/2024 11:31 AM EST [facility] Blood Venous blood specimen / Unknown Venipuncture / Unknown 01/17/2024 6:11 AM EST 01/17/2024 10:22 AM EST us Gilson Davidson MD LAB BLOOD ORDERABLES Final Resul t [facility] [address] [place] [address], documented in this encounter Visit Diagnoses Diagnosis Type 2 diabetes mellitus without complications (CMS/HCC) Essential (primary) hypertension Unspecified essential hypertension documented in this encounter Care Teams Extractor Operator Relationship Specialty Start Date End Date Kristin Bellamy MD [address] [facility] [address] [place], [place] PCP - General Internal Medicine 11/29/19 documented as of this encounter
--- OUTSIDE RECORDS SUMMARY | 2024-04-19 12:50 | XMS_ITS | Encounter Summary ---
Author Organization [facility] Address [address] [place] [address] Care Team Providers Care Hospice Clinical Supervisor Name Role Phone Kristin Bellamy MD Primary Care Provider [phone] Encounter Details Date Type Department Care Team ([facility] st Contact Info) Description 07/28/2017 Scanned Document [facility] [address] [phone] Roger Morales DPM [address] [place] [phone] Social History Tobacco Use Types Packs/Day Years [...] on filedocumented in this encounter Care Teams Hospice Clinical Supervisor Relationship Specialty Start Date End Date Kristin Bellamy MD [address] [phone] PCP - General Internal Medicine 07/31/17 documented as of this encounter
--- OUTSIDE RECORDS SUMMARY | 2024-04-19 12:50 | XMS_ITS | Encounter Summary ---
Author Organization [facility] [address] Address [id number] [place] [address] Care Team Providers Care Curriculum Advisory Teacher Name Role Phone Kristin Bellamy MD Primary Care Provider [phone] Encounter Details Date Type Department Care Team (Late st Contact Info) Description 03/05/2024 Lab Requisition [facility] - Main Lab 299 [facility] [place] [address] Gilson Davidson MD 38 [facility] [address] [place], [address] Type 2 diabetes mellitus without complications [...] Sedimentation rate (03/06/2024 7:07 AM EST) Pathologist [facility] Sed Rate 90(H) 0 - 30 mm/hr LAB HEMETOLOGY METHOD 03/06/2024 11:28 AM EST [facility] Blood Venous blood specimen / Unknown Venipuncture / Unknown 03/06/2024 7:07 AM EST 03/06/2024 11:18 AM EST us Gilson Davidson MD LAB BLOOD ORDERABLES Final Resul t Performing Organization Address [facility]/ZIP Co de Phone Number [facility] [address] [place] [address], * (ABNORMAL) C-reactive protein (03/06/2024 7:07 AM EST) [facility] C-Reactive Protein 1.86(H) <=0.50 mg/dL LAB CHEMISTRY METHOD 03/06/2024 2:12 PM EST [facility] Blood Venous blood specimen / Unknown Venipuncture / Unknown 03/06/2024 7:07 AM EST 03/06/2024 11:18 AM EST Gilson Davidson MD LAB BLOOD ORDERABLES Final Resul t Performing Organization Address City/[facility]/ZIP Co de Phone Number [facility] [address] [place] [address], [place] [phone] * (ABNORMAL) Basic metabolic panel (03/06/2024 7:07 AM EST) [facility] Sodium 137 133 - 145 mmol/L LAB CHEMISTRY METHOD 03/06/2024 2:12 PM EST [facility] Potassium 4.8 3.5 - 5.5 mmol/L LAB CHEMISTRY METHOD 03/06/2024 2:12 PM [facility] Chloride 108 96 - 110 mmol/L LAB CHEMISTRY METHOD 03/06/2024 2:12 PM [facility] CO2 27 21 - 32 mmol/L LAB CHEMISTRY METHOD 03/06/2024 2:12 PM [facility] Anion Gap 2(L) 3 - 11 LAB CHEMISTRY METHOD 03/06/2024 2:12 PM [facility] Glucose 124(H) 70 - 100 mg/dL LAB CHEMISTRY METHOD 03/06/2024 2:12 PM [facility] BUN 30(H) 5 - 25 mg/dL LAB CHEMISTRY METHOD 03/06/2024 2:12 PM [facility] Creatinine 1.50(H) 0.50 - 1.10 mg/dL LAB CHEMISTRY METHOD 03/06/2024 2:12 PM [facility] eGFR 39(L) >=60 mL/min/1. 73m2 LAB CHEMISTRY METHOD 03/06/2024 2:12 PM [facility] Comment:Calculation based on the??Chronic Kidney Disease Epidemiology Collaboration (CKD-EPI) equation refit??without adjustment for race. BUN/Creatinine Ratio 20.0 LAB CHEMISTRY METHOD 03/06/2024 2:12 PM [facility] Calcium 9.2 8.5 - 10.5 mg/dL LAB CHEMISTRY METHOD 03/06/2024 2:12 PM [facility] Blood Venous blood specimen / Unknown Venipuncture / Unknown 03/06/2024 7:07 AM EST 03/06/2024 11:18 AM EST us Gilson Davidson MD LAB BLOOD ORDERABLES Final Resul t [facility] [address] [place] [address], * (ABNORMAL) Complete blood count (03/06/2024 7:07 AM EST) [facility] Signature WBC 7.7 4.8 - 10.8 K/mcL LAB HEMETOLOGY METHOD 03/06/2024 12:04 PM [facility] RBC 4.30 3.80 - 4.80 M/mcL LAB HEMETOLOGY METHOD 03/06/2024 12:04 PM [facility] Hemoglobin 11.9 11.5 - 16.0 g/dL LAB HEMETOLOGY METHOD 03/06/2024 12:04 PM [facility] Hematocrit 38.4 35.0 - 47.0 % LAB HEMETOLOGY METHOD 03/06/2024 12:04 PM [facility] MCV 90.1 79.0 - 98.0 FL LAB HEMETOLOGY METHOD 03/06/2024 12:04 PM [facility] MCH 27.9 27.0 - 32.0 pcg LAB HEMETOLOGY METHOD 03/06/2024 12:04 PM [facility] MCHC 31.0(L) 32.0 - 37.0 g/dL LAB HEMETOLOGY METHOD 03/06/2024 12:04 PM [facility] RDW 14.5 11.0 - 15.0 % LAB HEMETOLOGY METHOD 03/06/2024 12:04 PM [facility] Platelets 425(H) 130 - 400 K/mcL LAB HEMETOLOGY METHOD 03/06/2024 12:04 PM [facility] MPV 10.5 7.0 - 11.0 FL LAB HEMETOLOGY METHOD 03/06/2024 12:04 PM [facility] NRBC 0.0 <1.0 % LAB HEMETOLOGY METHOD 03/06/2024 12:04 PM [facility] NRBC Absolute 0.00 <0.10 K/mcL LAB HEMETOLOGY METHOD 03/06/2024 12:04 PM EST [facility] Blood Venous blood specimen / Unknown Venipuncture / Unknown 03/06/2024 7:07 AM EST 03/06/2024 11:18 AM EST us Gilson Davidson MD LAB BLOOD ORDERABLES Final Resul t [facility] [address] [place] [address], documented in this encounter Visit Diagnoses Diagnosis Type 2 diabetes mellitus without complications (CMS/HCC) Essential (primary) hypertension Unspecified essential hypertension documented in this encounter Care Teams Curriculum Advisory Teacher Relationship Specialty Start Date End Date Kristin Bellamy MD 1221 [facility] [address] [place], [place] PCP - General Internal Medicine 11/29/19 documented as of this encounter
--- OUTSIDE RECORDS SUMMARY | 2024-04-19 12:50 | XMS_ITS | Encounter Summary ---
Author Organization [facility] Address [address] [place] [address] Care Team Providers Care Delinquent Notice Machine Operator Name Role Phone Kristin Bellamy MD Primary Care Provider [phone] Encounter Details Date Type Department Care Team (Late st Contact Info) Description 04/16/2024 Lab Requisition [facility] - Main Lab 299 [facility] [place] [address] Gilson Davidson MD 38 [facility] [address] [place], [phone] Essential (primary) hypertension; Type 2 diabetes [...] this encounter Results * (ABNORMAL) Sedimentation rate (04/17/2024 6:14 AM EST) Pathologist [facility] Sed Rate 83(H) 0 - 30 mm/hr LAB HEMETOLOGY METHOD 04/17/2024 11:[address] [facility] Blood Venous blood specimen / Unknown Venipuncture / Unknown 04/17/2024 6:14 AM EST 04/17/2024 10:58 AM EST Gilson Davidson MD LAB BLOOD ORDERABLES Final Resul t Performing Organization Address [facility]/ZIP Co de Phone Number [facility] [address] [place] [address], * (ABNORMAL) C-reactive protein (04/17/2024 6:14 AM EST) [facility] C-Reactive Protein 0.67(H) <=0.50 mg/dL LAB CHEMISTRY METHOD 04/17/2024 2:[address] [facility] Blood Venous blood specimen / Unknown Venipuncture / Unknown 04/17/2024 6:14 AM EST 04/17/2024 10:58 AM EST Gilson Davidson MD LAB BLOOD ORDERABLES Final Resul t Performing Organization Address City/[facility]/ZIP Co de Phone Number [facility] [address] [place] [address], * (ABNORMAL) Basic metabolic panel (04/17/2024 6:14 AM EST) Pathologist [facility] Sodium 140 133 - 145 mmol/L LAB CHEMISTRY METHOD 04/17/2024 2:[address] [facility] Potassium 4.0 3.5 - 5.5 mmol/L LAB CHEMISTRY METHOD 04/17/2024 2:[address] [facility] Chloride 107 96 - 110 mmol/L LAB CHEMISTRY METHOD 04/17/2024 2:[address] [facility] CO2 25 21 - 32 mmol/L LAB CHEMISTRY METHOD 04/17/2024 2:[address] [facility] Anion Gap 8 3 - 11 LAB CHEMISTRY METHOD 04/17/2024 2:[address] [facility] Glucose 116(H) 70 - 100 mg/dL LAB CHEMISTRY METHOD 04/17/2024 2:[address] [facility] BUN 19 5 - 25 mg/dL LAB CHEMISTRY METHOD 04/17/2024 2:[address] [facility] Creatinine 1.33(H) 0.50 - 1.10 mg/dL LAB CHEMISTRY METHOD 04/17/2024 2:[address] [facility] eGFR 45(L) >=60 mL/min/1. 73m2 LAB CHEMISTRY METHOD 04/17/2024 2:[address] [facility] Comment:Calculation based on the??Chronic Kidney Disease Epidemiology Collaboration (CKD-EPI) equation refit??without adjustment for race. BUN/Creatinine Ratio 14.3 LAB CHEMISTRY METHOD 04/17/2024 2:[address] [facility] Calcium 8.6 8.5 - 10.5 mg/dL LAB CHEMISTRY METHOD 04/17/2024 2:[address] [facility] Blood Venous blood specimen / Unknown Venipuncture / Unknown 04/17/2024 6:14 AM EST 04/17/2024 10:58 AM EST us Gilson Davidson MD LAB BLOOD ORDERABLES Final Resul t [facility] [address] [place] [address], * (ABNORMAL) Complete blood count (04/17/2024 6:14 AM EST) [facility] WBC 7.7 4.8 - 10.8 K/mcL LAB HEMETOLOGY METHOD 04/17/2024 11:[address] [facility] RBC 3.60(L) 3.80 - 4.80 M/mcL LAB HEMETOLOGY METHOD 04/17/2024 11:[address] [facility] Hemoglobin 9.7(L) 11.5 - 16.0 g/dL LAB HEMETOLOGY METHOD 04/17/2024 11:[address] [facility] Hematocrit 30.5(L) 35.0 - 47.0 % LAB HEMETOLOGY METHOD 04/17/2024 11:[address] [facility] MCV 85.9 79.0 - 98.0 FL LAB HEMETOLOGY METHOD 04/17/2024 11:[address] [facility] MCH 27.3 27.0 - 32.0 pcg LAB HEMETOLOGY METHOD 04/17/2024 11:[address] [facility] MCHC 31.8(L) 32.0 - 37.0 g/dL LAB HEMETOLOGY METHOD 04/17/2024 11:[address] [facility] RDW 15.4(H) 11.0 - 15.0 % LAB HEMETOLOGY METHOD 04/17/2024 11:[address] [facility] Platelets 290 130 - 400 K/mcL LAB HEMETOLOGY METHOD 04/17/2024 11:[address] [facility] MPV 10.1 7.0 - 11.0 FL LAB HEMETOLOGY METHOD 04/17/2024 11:[address] [facility] NRBC 0.0 <1.0 % LAB HEMETOLOGY METHOD 04/17/2024 11:[address] [facility] NRBC Absolute 0.00 <0.10 K/mcL LAB HEMETOLOGY METHOD 04/17/2024 11:[address] [facility] Blood Venous blood specimen / Unknown Venipuncture / Unknown 04/17/2024 6:14 AM EST 04/17/2024 10:58 AM EST us Gilson Davidson MD LAB BLOOD ORDERABLES Final Resul t [facility] [address] [place] [address], documented in this encounter Visit Diagnoses Diagnosis Essential (primary) hypertension Unspecified essential hypertension Type 2 diabetes mellitus without complications (CMS/HCC) documented in this encounter Care Teams Delinquent Notice Machine Operator Relationship Specialty Start Date End Date Kristin Bellamy MD 1221 [facility] [address] [place], [place] PCP - General Internal Medicine 11/29/19 documented as of this encounter
--- OUTSIDE RECORDS SUMMARY | 2024-04-19 12:50 | XMS_ITS | Encounter Summary ---
Author Organization [facility] Address [address] [place] [address] Care Team Providers Care Fructose Loader Name Role Phone Kristin Bellamy MD Primary Care Provider [phone] Encounter Details Date Type Department Care Team (Late st Contact Info) Description 02/06/2024 Lab Requisition [facility] - Main Lab 299 [facility] [place] [address] Gilson Davidson MD 38 [facility] [address] [place], [address] Type 2 diabetes mellitus without complications [...] LAB HEMETOLOGY METHOD 02/08/2024 11:21 AM EST [facility] Blood Venous blood specimen / Unknown Venipuncture / Unknown 02/08/2024 8:40 AM EST 02/08/2024 10:46 AM EST us Gilson Davidson MD LAB BLOOD ORDERABLES Final Resul t Performing Organization Address [facility]/ZIP Co de Phone Number [facility] [address] [place] [address], * (ABNORMAL) C-reactive protein (02/08/2024 8:40 AM EST) [facility] C-Reactive Protein 0.63(H) <=0.50 mg/dL LAB CHEMISTRY METHOD 02/08/2024 11:26 AM EST [facility] Blood Venous blood specimen / Unknown Venipuncture / Unknown 02/08/2024 8:40 AM EST 02/08/2024 10:46 AM EST us Gilson Davidson MD LAB BLOOD ORDERABLES Final Resul t Performing Organization Address City/[facility]/ZIP Co de Phone Number [facility] [address] [place] [address], * (ABNORMAL) Basic metabolic panel (02/08/2024 8:40 AM EST) Pathologist [facility] Sodium 139 133 - 145 mmol/L LAB CHEMISTRY METHOD 02/08/2024 11:26 AM EST [facility] Potassium 4.8 3.5 - 5.5 mmol/L LAB CHEMISTRY METHOD 02/08/2024 11:26 AM [facility] Chloride 108 96 - 110 mmol/L LAB CHEMISTRY METHOD 02/08/2024 11:26 AM [facility] CO2 28 21 - 32 mmol/L LAB CHEMISTRY METHOD 02/08/2024 11:26 AM [facility] Anion Gap 3 3 - 11 LAB CHEMISTRY METHOD 02/08/2024 11:26 AM [facility] Glucose 131(H) 70 - 100 mg/dL LAB CHEMISTRY METHOD 02/08/2024 11:26 AM [facility] BUN 23 5 - 25 mg/dL LAB CHEMISTRY METHOD 02/08/2024 11:26 AM [facility] Creatinine 1.27(H) 0.50 - 1.10 mg/dL LAB CHEMISTRY METHOD 02/08/2024 11:26 AM [facility] eGFR 48(L) >=60 mL/min/1. 73m2 LAB CHEMISTRY METHOD 02/08/2024 11:26 AM [facility] Comment:Calculation based on the??Chronic Kidney Disease Epidemiology Collaboration (CKD-EPI) equation refit??without adjustment for race. BUN/Creatinine Ratio 18.1 LAB CHEMISTRY METHOD 02/08/2024 11:26 AM [facility] Calcium 9.3 8.5 - 10.5 mg/dL LAB CHEMISTRY METHOD 02/08/2024 11:26 AM [facility] Blood Venous blood specimen / Unknown Venipuncture / Unknown 02/08/2024 8:40 AM EST 02/08/2024 10:46 AM EST us Gilson Davidson MD LAB BLOOD ORDERABLES Final Resul t [facility] [address] [place] [address], * (ABNORMAL) Complete blood count (02/08/2024 8:40 AM EST) [facility] WBC 9.9 4.8 - 10.8 K/mcL LAB HEMETOLOGY METHOD 02/08/2024 11:00 AM [facility] RBC 4.20 3.80 - 4.80 M/mcL LAB HEMETOLOGY METHOD 02/08/2024 11:00 AM [facility] Hemoglobin 11.7 11.5 - 16.0 g/dL LAB HEMETOLOGY METHOD 02/08/2024 11:00 AM [facility] Hematocrit 37.5 35.0 - 47.0 % LAB HEMETOLOGY METHOD 02/08/2024 11:00 AM [facility] MCV 88.9 79.0 - 98.0 FL LAB HEMETOLOGY METHOD 02/08/2024 11:00 AM [facility] MCH 27.7 27.0 - 32.0 pcg LAB HEMETOLOGY METHOD 02/08/2024 11:00 AM [facility] MCHC 31.2(L) 32.0 - 37.0 g/dL LAB HEMETOLOGY METHOD 02/08/2024 11:00 AM [facility] RDW 14.2 11.0 - 15.0 % LAB HEMETOLOGY METHOD 02/08/2024 11:00 AM [facility] Platelets 488(H) 130 - 400 K/mcL LAB HEMETOLOGY METHOD 02/08/2024 11:00 AM [facility] MPV 10.3 7.0 - 11.0 FL LAB HEMETOLOGY METHOD 02/08/2024 11:00 AM [facility] NRBC 0.0 <1.0 % LAB HEMETOLOGY METHOD 02/08/2024 11:00 AM [facility] NRBC Absolute 0.00 <0.10 K/mcL LAB HEMETOLOGY METHOD 02/08/2024 11:00 AM EST [facility] Blood Venous blood specimen / Unknown Venipuncture / Unknown 02/08/2024 8:40 AM EST 02/08/2024 10:46 AM EST us Gilson Davidson MD LAB BLOOD ORDERABLES Final Resul t [facility] [address] [place] [address], documented in this encounter Visit Diagnoses Diagnosis Type 2 diabetes mellitus without complications (CMS/HCC) Essential (primary) hypertension Unspecified essential hypertension documented in this encounter Care Teams Fructose Loader Relationship Specialty Start Date End Date Kristin Bellamy MD 1221 [facility] [address] [place], [place] PCP - General Internal Medicine 11/29/19 documented as of this encounter
--- OUTSIDE RECORDS SUMMARY | 2024-04-19 12:50 | XMS_ITS | Encounter Summary ---
Author Organization [facility] Address [address] [place] [address] Care Team Providers Care Executive Secretary Name Role Phone Kristin Bellamy MD Primary Care Provider [phone] Encounter Details Date Type Department Care Team (Late st Contact Info) Description 01/23/2024 Lab Requisition [facility] - Main Lab 299 [facility] [place] [address] Gilson Davidson MD 38 [facility] 204 [place], [address] Type 2 diabetes mellitus without complications [...] LAB CHEMISTRY METHOD 01/24/2024 12:35 PM EST [facility] Blood Venous blood specimen / Unknown Venipuncture / Unknown 01/24/2024 8:13 AM EST 01/24/2024 11:39 AM EST Gilson Davidson MD LAB BLOOD ORDERABLES Final Resul t Performing Organization Address [facility] Co de Phone Number [facility] [address] [place] [address], [place] [phone] * (ABNORMAL) Sedimentation rate (01/24/2024 8:13 AM EST) [facility] Sed Rate 91(H) 0 - 30 mm/hr LAB HEMETOLOGY METHOD 01/24/2024 12:43 PM EST [facility] Blood Venous blood specimen / Unknown Venipuncture / Unknown 01/24/2024 8:13 AM EST 01/24/2024 11:39 AM EST Gilson Davidson MD LAB BLOOD ORDERABLES Final Resul t Performing Organization Address City/[facility]/ZIP Co de Phone Number [facility] [address] [place] [address], [place] [phone] * (ABNORMAL) Basic metabolic panel (01/24/2024 8:13 AM EST) [facility] Sodium 137 133 - 145 mmol/L LAB CHEMISTRY METHOD 01/24/2024 12:25 PM EST [facility] Potassium 4.3 3.5 - 5.5 mmol/L LAB CHEMISTRY METHOD 01/24/2024 12:[address] [facility] Chloride 103 96 - 110 mmol/L LAB CHEMISTRY METHOD 01/24/2024 12:[address] [facility] CO2 26 21 - 32 mmol/L LAB CHEMISTRY METHOD 01/24/2024 12:[address] [facility] Anion Gap 8 3 - 11 LAB CHEMISTRY METHOD 01/24/2024 12:[address] [facility] Glucose 173(H) 70 - 100 mg/dL LAB CHEMISTRY METHOD 01/24/2024 12:[address] [facility] BUN 19 5 - 25 mg/dL LAB CHEMISTRY METHOD 01/24/2024 12:[address] [facility] Creatinine 1.20(H) 0.50 - 1.10 mg/dL LAB CHEMISTRY METHOD 01/24/2024 12:[address] [facility] eGFR 51(L) >=60 mL/min/1. 73m2 LAB CHEMISTRY METHOD 01/24/2024 12:[address] [facility] Comment:Calculation based on the??Chronic Kidney Disease Epidemiology Collaboration (CKD-EPI) equation refit??without adjustment for race. BUN/Creatinine Ratio 15.8 LAB CHEMISTRY METHOD 01/24/2024 12:[address] [facility] Calcium 9.2 8.5 - 10.5 mg/dL LAB CHEMISTRY METHOD 01/24/2024 12:[address] [facility] Blood Venous blood specimen / Unknown Venipuncture / Unknown 01/24/2024 8:13 AM EST 01/24/2024 11:39 AM EST us Gilson Davidson MD LAB BLOOD ORDERABLES Final Resul t [facility] [address] [place] [address], * (ABNORMAL) Complete blood count (01/24/2024 8:13 AM EST) [facility] WBC 6.8 4.8 - 10.8 K/mcL LAB HEMETOLOGY METHOD 01/24/2024 12:[address] [facility] RBC 3.80 3.80 - 4.80 M/mcL LAB HEMETOLOGY METHOD 01/24/2024 12:[address] [facility] Hemoglobin 10.3(L) 11.5 - 16.0 g/dL LAB HEMETOLOGY METHOD 01/24/2024 12:[address] [facility] Hematocrit 33.3(L) 35.0 - 47.0 % LAB HEMETOLOGY METHOD 01/24/2024 12:[address] [facility] MCV 88.8 79.0 - 98.0 FL LAB HEMETOLOGY METHOD 01/24/2024 12:[address] [facility] MCH 27.5 27.0 - 32.0 pcg LAB HEMETOLOGY METHOD 01/24/2024 12:[address] [facility] MCHC 30.9(L) 32.0 - 37.0 g/dL LAB HEMETOLOGY METHOD 01/24/2024 12:[address] [facility] RDW 13.9 11.0 - 15.0 % LAB HEMETOLOGY METHOD 01/24/2024 12:[address] [facility] Platelets 273 130 - 400 K/mcL LAB HEMETOLOGY METHOD 01/24/2024 12:[address] [facility] MPV 10.7 7.0 - 11.0 FL LAB HEMETOLOGY METHOD 01/24/2024 12:[address] [facility] NRBC 0.0 <1.0 % LAB HEMETOLOGY METHOD 01/24/2024 12:[address] [facility] NRBC Absolute 0.00 <0.10 K/mcL LAB HEMETOLOGY METHOD 01/24/2024 12:18 PM EST [facility] Blood Venous blood specimen / Unknown Venipuncture / Unknown 01/24/2024 8:13 AM EST 01/24/2024 11:39 AM EST us Gilson Davidson MD LAB BLOOD ORDERABLES Final Resul t [facility] [address] [place] [address], documented in this encounter Visit Diagnoses Diagnosis Type 2 diabetes mellitus without complications (CMS/HCC) Essential (primary) hypertension Unspecified essential hypertension documented in this encounter Care Teams Executive Secretary Relationship Specialty Start Date End Date Kristin Bellamy MD 1221 [facility] [address] [place], [place] PCP - General Internal Medicine 11/29/19 documented as of this encounter
--- OUTSIDE RECORDS SUMMARY | 2024-04-19 12:50 | XMS_ITS | Encounter Summary ---
Author Organization [facility] Address [address] [place] [phone] Care Team Providers Care Core Driller Helper Name Role Phone Kristin Bellamy MD Primary Care Provider Encounter Details Date Type Department Care Team (Late st Contact Info) Description 01/30/[address] [facility] - Main Lab [address] [facility] [place] [address] Gilson Davidson MD [address] [facility] [address] [place], [address] Type 2 diabetes mellitus without complications [...] Sedimentation rate (01/31/2024 6:03 AM EST) Pathologist [facility] Sed Rate 76(H) 0 - 30 mm/hr LAB HEMETOLOGY METHOD 01/31/2024 11:00 AM EST [facility] Blood Venous blood specimen / Unknown Venipuncture / Unknown 01/31/2024 6:03 AM EST 01/31/2024 10:15 AM EST us Gilson Davidson MD LAB BLOOD ORDERABLES Final Resul t Performing Organization Address [facility]/ZIP Co de Phone Number [facility] [address] [place] [address], * C-reactive protein (01/31/2024 6:03 AM EST) [facility] C-Reactive Protein 0.44 <=0.50 mg/dL LAB CHEMISTRY METHOD 01/31/2024 11:40 AM EST [facility] Blood Venous blood specimen / Unknown Venipuncture / Unknown 01/31/2024 6:03 AM EST 01/31/2024 10:17 AM EST us Gilson Davidson MD LAB BLOOD ORDERABLES Final Resul t Performing Organization Address City/[facility]/ZIP Co de Phone Number [facility] [address] [place] [address], [place] [phone] * (ABNORMAL) Basic metabolic panel (01/31/2024 6:03 AM EST) Pathologist [facility] Sodium 143 133 - 145 mmol/L LAB CHEMISTRY METHOD 01/31/2024 11:35 AM EST [facility] Potassium 4.0 3.5 - 5.5 mmol/L LAB CHEMISTRY METHOD 01/31/2024 11:35 AM [facility] Chloride 107 96 - 110 mmol/L LAB CHEMISTRY METHOD 01/31/2024 11:35 AM [facility] CO2 29 21 - 32 mmol/L LAB CHEMISTRY METHOD 01/31/2024 11:35 AM [facility] Anion Gap 7 3 - 11 LAB CHEMISTRY METHOD 01/31/2024 11:35 AM [facility] Glucose 116(H) 70 - 100 mg/dL LAB CHEMISTRY METHOD 01/31/2024 11:35 AM [facility] BUN 18 5 - 25 mg/dL LAB CHEMISTRY METHOD 01/31/2024 11:35 AM [facility] Creatinine 1.13(H) 0.50 - 1.10 mg/dL LAB CHEMISTRY METHOD 01/31/2024 11:35 AM [facility] eGFR 55(L) >=60 mL/min/1. 73m2 LAB CHEMISTRY METHOD 01/31/2024 11:35 AM [facility] Comment:Calculation based on the??Chronic Kidney Disease Epidemiology Collaboration (CKD-EPI) equation refit??without adjustment for race. BUN/Creatinine Ratio 15.9 LAB CHEMISTRY METHOD 01/31/2024 11:35 AM [facility] Calcium 9.2 8.5 - 10.5 mg/dL LAB CHEMISTRY METHOD 01/31/2024 11:35 AM [facility] Blood Venous blood specimen / Unknown Venipuncture / Unknown 01/31/2024 6:03 AM EST 01/31/2024 10:17 AM EST us Gilson Davidson MD LAB BLOOD ORDERABLES Final Resul t [facility] [address] [place] [address], * (ABNORMAL) Complete blood count (01/31/2024 6:03 AM EST) [facility] WBC 5.8 4.8 - 10.8 K/mcL LAB HEMETOLOGY METHOD 01/31/2024 10:45 AM [facility] RBC 3.80 3.80 - 4.80 M/mcL LAB HEMETOLOGY METHOD 01/31/2024 10:45 AM [facility] Hemoglobin 10.5(L) 11.5 - 16.0 g/dL LAB HEMETOLOGY METHOD 01/31/2024 10:45 AM [facility] Hematocrit 33.7(L) 35.0 - 47.0 % LAB HEMETOLOGY METHOD 01/31/2024 10:45 AM [facility] MCV 88.7 79.0 - 98.0 FL LAB HEMETOLOGY METHOD 01/31/2024 10:45 AM [facility] MCH 27.6 27.0 - 32.0 pcg LAB HEMETOLOGY METHOD 01/31/2024 10:45 AM [facility] MCHC 31.2(L) 32.0 - 37.0 g/dL LAB HEMETOLOGY METHOD 01/31/2024 10:45 AM [facility] RDW 13.4 11.0 - 15.0 % LAB HEMETOLOGY METHOD 01/31/2024 10:45 AM [facility] Platelets 278 130 - 400 K/mcL LAB HEMETOLOGY METHOD 01/31/2024 10:45 AM [facility] MPV 10.6 7.0 - 11.0 FL LAB HEMETOLOGY METHOD 01/31/2024 10:45 AM [facility] NRBC 0.0 <1.0 % LAB HEMETOLOGY METHOD 01/31/2024 10:45 AM [facility] NRBC Absolute 0.00 <0.10 K/mcL LAB HEMETOLOGY METHOD 01/31/2024 10:45 AM EST [facility] Blood Venous blood specimen / Unknown Venipuncture / Unknown 01/31/2024 6:03 AM EST 01/31/2024 10:15 AM EST us Gilson Davidson MD LAB BLOOD ORDERABLES Final Resul t [facility] [address] [place] [address], documented in this encounter Visit Diagnoses Diagnosis Type 2 diabetes mellitus without complications (CMS/HCC) Essential (primary) hypertension Unspecified essential hypertension documented in this encounter Care Teams Core Driller Helper Relationship Specialty Start Date End Date Kristin Bellamy MD [address] [facility] [address] [place], [place] PCP - General Internal Medicine 11/29/19 documented as of this encounter
== END 2024-04-19 11:58 | disposition home or self-care (01) ==
PROVIDERS: Visit Provider Student in an Organized Health Care Education/Training Program
DX: E04.2 Nontoxic multinodular goiter (principal)
CPT/HCPCS: 99205

== ENCOUNTER → 2024-04-19 11:04 | Outpatient (BNVA) | payer BC, SELFPAY | PROVIDERS: Visit Provider Student in an Organized Health Care Education/Training Program ==

== ENCOUNTER 2024-05-30 10:36 | Outpatient (REF) | payer BC, SELFPAY ==
--- NOTE | ~2024-05-30 | IR_ITS ---
EXAMINATION: Removal of Guevara catheter. CLINICAL INDICATION: Headache and not needed. FINDINGS/ IR/IR cvc remov tunnel wo prt/creative writing english professor IMPRESSION: The skin area of Guevara entry was cleaned and draped. With blunt dissection the cuff was removed and the entire Guevara catheter was removed without any bleeding. Sterile dressing applied post procedure. Patient tolerated procedure extremely well. Electronically signed by: Maxim Sommer MD 06/14/2024 06:59 AM EDT
--- OUTSIDE RECORDS SUMMARY | 2024-05-30 12:46 | XMS_ITS ---
Author Organization [facility] Address [address] [place] [address] Care Team Providers Care Battery Charger Conveyor Line Name Role Phone Cheyenneelaine Kristin Primary Care Provider Unavailab Neri Barragan Unavailable [phone] REASON FOR VISIT Referral Needed Encounters Encounter Location Date Provider Diagnosis [facility] [address] [place] [address] 10/07/2023 Neri Tinoco Plan Of Treatment No Information Progress Notes * Olga KATDOB:1960 (63 yo F)Acc No.[id number]:10/07/2023 Patient:?Olga Kat :1960???Age:63 Y???Sex:Female Address:[address] [place], [address] * true * Date:? Generated for Printi ng/Fasethg/eTransmitting on:?05/30/2024 12:46 PM EDT
--- OUTSIDE RECORDS SUMMARY | 2024-05-30 12:46 | XMS_ITS | Encounter Summary ---
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 (CMS/HCC V24, CMS/HCC V28); Small cell b-cell lymphoma, spleen (CMS/HCC V24, CMS/HCC V28); Other toxic encephalopathy; Type 2 diabetes mellitus without complications (CMS/HCC V24, CMS/HCC V28); Essential (primary) hypertension Social History Tobacco Use [...] * C-reactive protein (02/28/2024 6:00 AM EST) [facility] C-Reactive Protein 0.44 <=0.50 mg/dL LAB CHEMISTRY METHOD 02/28/2024 8:44 AM EST [facility] Blood Venous blood specimen / Unknown Venipuncture / Unknown 02/28/2024 6:00 AM EST 02/28/2024 7:59 AM EST us Gilson Davidson MD LAB BLOOD ORDERABLES Final Resul t [facility] [address] [place] [address], * (ABNORMAL) Sedimentation rate (02/28/2024 6:00 AM EST) [facility] Sed Rate 51(H) 0 - 30 mm/hr LAB HEMETOLOGY METHOD 02/28/2024 8:40 AM [facility] Blood Venous blood specimen / Unknown Venipuncture / Unknown 02/28/2024 6:00 AM EST 02/28/2024 7:59 AM EST us Gilson Davidson MD LAB BLOOD ORDERABLES Final Resul t [facility] [address] [place] [address], [place] [phone] * (ABNORMAL) Basic metabolic panel (02/28/2024 6:00 AM EST) Sodium 140 133 - 145 mmol/L LAB CHEMISTRY METHOD 02/28/2024 8:42 AM [facility] Potassium 4.6 3.5 - 5.5 mmol/L LAB CHEMISTRY METHOD 02/28/2024 8:42 AM [facility] Chloride 107 96 - 110 mmol/L LAB CHEMISTRY METHOD 02/28/2024 8:42 AM [facility] CO2 28 21 - 32 mmol/L LAB CHEMISTRY METHOD 02/28/2024 8:42 AM [facility] Anion Gap 5 3 - 11 LAB CHEMISTRY METHOD 02/28/2024 8:42 AM [facility] Glucose 99 70 - 100 mg/dL LAB CHEMISTRY METHOD 02/28/2024 8:42 AM [facility] BUN 28(H) 5 - 25 mg/dL LAB CHEMISTRY METHOD 02/28/2024 8:42 AM [facility] Creatinine 1.39(H) 0.50 - 1.10 mg/dL LAB CHEMISTRY METHOD 02/28/2024 8:42 AM [facility] eGFR 43(L) >=60 mL/min/1. 73m2 LAB CHEMISTRY METHOD 02/28/2024 8:42 AM [facility] Comment:Calculation based on the??Chronic Kidney Disease Epidemiology Collaboration (CKD-EPI) equation refit??without adjustment for race. BUN/Creatinine Ratio 20.1 LAB CHEMISTRY METHOD 02/28/2024 8:42 AM [facility] Calcium 8.9 8.5 - 10.5 mg/dL LAB CHEMISTRY METHOD 02/28/2024 8:42 AM [facility] Blood Venous blood specimen / Unknown Venipuncture / Unknown 02/28/2024 6:00 AM EST 02/28/2024 7:59 AM EST us Gilson Davidson MD LAB BLOOD ORDERABLES Final Resul t [facility] [address] [place] [address], [place] [phone] * (ABNORMAL) Complete blood count (02/28/2024 6:00 AM EST) WBC 6.7 4.8 - 10.8 K/mcL LAB HEMETOLOGY METHOD 02/28/2024 8:24 AM [facility] RBC 3.90 3.80 - 4.80 M/mcL LAB HEMETOLOGY METHOD 02/28/2024 8:24 AM [facility] Hemoglobin 10.7(L) 11.5 - 16.0 g/dL LAB HEMETOLOGY METHOD 02/28/2024 8:24 AM [facility] Hematocrit 33.6(L) 35.0 - 47.0 % LAB HEMETOLOGY METHOD 02/28/2024 8:24 AM [facility] MCV 86.8 79.0 - 98.0 FL LAB HEMETOLOGY METHOD 02/28/2024 8:24 AM [facility] MCH 27.6 27.0 - 32.0 pcg LAB HEMETOLOGY METHOD 02/28/2024 8:24 AM [facility] MCHC 31.8(L) 32.0 - 37.0 g/dL LAB HEMETOLOGY METHOD 02/28/2024 8:24 AM EST [facility] RDW 14.3 11.0 - 15.0 % LAB HEMETOLOGY METHOD 02/28/2024 8:24 AM [facility] Platelets 411(H) 130 - 400 K/mcL LAB HEMETOLOGY METHOD 02/28/2024 8:24 AM EST [facility] MPV 10.0 7.0 - 11.0 FL LAB HEMETOLOGY METHOD 02/28/2024 8:24 AM EST [facility] NRBC 0.0 <1.0 % LAB HEMETOLOGY METHOD 02/28/2024 8:24 AM [facility] NRBC Absolute 0.00 <0.10 K/mcL LAB HEMETOLOGY METHOD 02/28/2024 8:24 AM [facility] Blood Venous blood specimen / Unknown Venipuncture / Unknown 02/28/2024 6:00 AM EST 02/28/2024 7:59 AM EST us Gilson Davidson MD LAB BLOOD ORDERABLES Final Resul t [facility] [address] [place] [address], documented in this encounter Visit Diagnoses Diagnosis 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
--- OUTSIDE RECORDS SUMMARY | 2024-05-30 12:46 | XMS_ITS | Clinical Summary ---
Author Organization [address] Address [address] [place] [phone] Care Team Providers Care Roll Forming Supervisor Name Role Phone Kristin Bellamy MD Primary Care Provider [phone] Allergies Active Allergy Reactions Criticality Noted Date [...] Date Charcot foot due to diabetes mellitus 07/31/2017 Open wound of right foot, initial [...] cancer screening, Colonoscopy 2006 Diabetes screening 2006 Pneumococcal Vaccine (50+ ye ars) (1 of 1 - PCV) 08/24/2011 Shingles vaccine (Shingrix) (1 of 2 - Shingrix (RZV) 2 Dose Standard Series) 08/24/2011 Covid-19 vaccine series (1 - 2023- season) 2023 Influenza vaccine 10/14/2024 RSV Immunization (1 - 1-dose 75+ series) 2036 Meningococcal Vaccine Aged Out No marlyn crow eligible based on patient's age to complete this topic Pneumococcal Vaccine (2 - 49 years) Aged Out No longer eligible based on patient's age to complete this topic Insurance [employer] on file CIG[employer] on file CIG[employer] on file Care Teams Roll Forming Supervisor Relationship Specialty Start Date End Date Kristin Bellamy MD [address] [place] [phone] PCP - General Internal Medicine 07/31/17
--- OUTSIDE RECORDS SUMMARY | 2024-05-30 12:46 | XMS_ITS | Data Portability ---
Author Organization [facility] [employer] [facility], Main Office Address [address], [address] [place] [address] Care Team Providers Care Dental Services Director Name Role Phone TRA DAMON - 2ND [...] Address Organization Details Recorded Time Vasovagal syncope 519643342 Active 2019 ANN PALENCIA [address] , [address], [place], [address], [facility] [employer] [facility] 0 10:46:40 Acute insomnia 209390048 Active 2019 ANN PALENCIA [address], [address], [place], [address], [facility] 0 12:20:58 Seasonal allergy 544471447 Active 2023 Coco Patiño NP [address] , [address], [place], [address], [facility] [employer] 4 08:54:18 Constipation 52302878 Active 2023 Coco Patiño NP [address], [address], [place], [address], [facility] [employer] 4 08:55:05 Depressive disorder 36377307 Active 2023 Coco Patiño NP [address] [facility], [address], [place], [address], [facility] 4 09:18:55 Fracture of neck of femur 9159724 Active 2023 Coco Patiño NP [address] [facility], [address], [place], [address], [facility] 4 09:23:30 Non-toxic multinodular goiter 30902726 Active 2023 Kellie Padilla MD [address] [facility], [address], [place], [address], [facility] 4 15:57:10 Diabetes mellitus 41977016 Active 2017 ANN PALENCIA [address] [facility], [address], [place], [address], [facility] 8 14:10:02 Neuropathy due to diabetes mellitus 891899176 Active 2017 ANN PALENCIA [address] [facility], [address], [place], [address], [facility] 8 14:10:12 Asthma 386345742 Active 2017 ANN PALENCIA [address] [facility], [address], [place], [address], [facility] 8 14:10:19 Essential hypertension 80284103 Active 2017 ANN PALENCIA [address] [facility], [address], [place], [address], [facility] 8 14:10:38 Diabetic foot ulcer 328423615 Active 2017 ANN PALENCIA [address] [facility], [address], [place], [address], [facility] 8 14:11:07 Charcot's joint of foot 713223593 Active 2017 ANN PALENCIA [address] [facility], [address], [place], [address], [facility] 8 14:11:40 Cellulitis 463088698 Active 2017 ANN PALENCIA [address], [place], [address], [facility] 8 14:11:51 Chronic kidney disease stage 3 552976063 Active 2017 ANN PALENCIA [address], [place], [address], [facility] 8 14:12:00 Osteomyeliti s of ankle AND/OR foot 71584303 Active 2017 right plantar foot GUSTAVO PALENCIAP [address] [facility], [address], [place], [address], [facility] 8 14:13:20 Sepsis 44282402 Active 2017 group b strep ANN PALENCIA [address] [facility], [address], [place], [address], [facility] 8 14:15:46 Mixed hyperlipidem ia 900709195 Active 2017 ANN PALENCIA [address], [place], [address], [facility] 8 14:20:07 Anemia 258710207 Active 2017 ANN PALENCIA [address] [facility], [address], [place], [address], [facility] 8 14:20:36 Gastroesopha geal reflux disease without esophagitis 531845567 Active 2017 ANN PALENCIA [address] [facility], [address], [place], [address], [facility] 8 14:20:48 Goiter 0541191 Active 2017 ANN PALENCIA [address], [address], [place], [address], [facility] 8 08:06:57 Problem Notes None recorded. Medical Equipment None Reported. Allergies Allergen ID Allergen Name Allergen Category Reaction Reaction Severity Criticality Documentation Date Start Date Code Code System Note Provider Name and Address Organization Details Recorded Time 75378 Product containin g penicilli n (product) medicatio n rash Not available Not available 09/01/2017 94848 8001 SNOMED Not Available Not Available Not Available 28787 Medicinal product containin g cephalosp concha and acting as antibacte rial agent (product) medicatio n rash Not available Not available 09/01/2017 58567 9009 SNOMED Not Available Not Available Not Available 13171 erythromy cesar medicatio n Not available Not available Not available 09/01/2017 4053 RxNorm Not Available Not Available Not Available 30632 amlodipin e medicatio n Not available Not available Not available 08/07/2019 27796 RxNorm Not Available Not Available Not Available 44444 cat dander environme nt Not available Not available Not available 08/07/2019 75114 UNK Not Available Not Available Not Available 93826 Canis lupus familiari s extract environme nt Not available Not available Not available 08/07/2019 34447 4 RxNorm Not Available Not Available Not Available 03433 Keflex medicatio n Not available Not available Not available 08/07/2019 10024 7 RxNorm Not Available Not Available Not Available 43067 clindamyc in Not available Not available Not available Not available 02/13/2024 2582 RxNorm Not Available Not Available Not Available 81963 olmesarta n medicatio n Not available Not available Not available 02/13/2024 81193 4 RxNorm Not Available Not Available Not Available 63319 Shellfish (substanc e) food,medi cation Not available Not available Not available 02/13/2024 99324 9006 SNOMED Not Available Not Available Not Available Medications Not known to be on any medication Vitals Date Recorded Body height Body mass index (BMI) Body weight Heart rate Respiratory rate Body temperature Oxygen saturation Oxygen saturation in Arterial blood by Pulse oximetry Systolic blood pressure Diastolic blood pressure Provider Name and Address Organization Details Last Updated DateTime 5 165.1 cm 27.1 kg/m2 21993.5 6 g 86 /min 18 /min 97 [degF] 97 % 97 % 133 mm[Hg] 63 mm[Hg] Coco Patiño NP [address] [facility], [address], [place], [address], [facility] [employer] 5 14:55:35 Date Recorded Body height Heart rate Respiratory rate Body temperature Oxygen saturation Oxygen saturation in Arterial blood by Pulse oximetry Systolic blood pressure Diastolic blood pressure Provider Name and Address Organization Details Last Updated DateTime 5 165.1 cm 74 /min 18 /min 97.6 [degF] 98 % 98 % 133 mm[Hg] 74 mm[Hg] JOHN KAYE NP [address] [facility], [address], [place], [address], [facility] 5 12:33:28 Date Recorded Body height Heart rate Respiratory rate Body temperature Oxygen saturation Oxygen saturation in Arterial blood by Pulse oximetry Systolic blood pressure Diastolic blood pressure Provider Name and Address Organization Details Last Updated DateTime 5 165.1 cm 68 /min 18 /min 97.4 [degF] 96 % 96 % 125 mm[Hg] 72 mm[Hg] JOHN KAYE NP [address] [facility], [address], [place], [address], [facility] 5 13:44:13 Date Recorded Body height Heart rate Respiratory rate Body temperature Oxygen saturation Oxygen saturation in Arterial blood by Pulse oximetry Systolic blood pressure Diastolic blood pressure Provider Name and Address Organization Details Last Updated DateTime 5 165.1 cm 77 /min 18 /min 98.1 [degF] 96 % 96 % 133 mm[Hg] 70 mm[Hg] JOHN KAYE NP [address] [facility], [facility] [address], [place], [address], [facility] 5 12:47:23 Date Recorded Body height Body mass index (BMI) Body weight Heart rate Respiratory rate Body temperature Oxygen saturation Oxygen saturation in Arterial blood by Pulse oximetry Systolic blood pressure Diastolic blood pressure Provider Name and Address Organization Details Last Updated DateTime 5 165.1 cm 27.1 kg/m2 32928.5 6 g 74 /min 16 /min 97.8 [degF] 95 % 95 % 151 mm[Hg] 89 mm[Hg] Coco Patiño NP [address] [facility], [address], [place], [address], [facility] 5 11:11:23 Social History Question Answer Notes LastModified by Organization Details LastModified Time Tobacco Smoking Status Former Smoker smoked 1 pack/week, quit in 2002 Kellie Padilla MD [address] [facility], [address], [place], [address], [facility] 01/09/2024 19:33:16 Do You Have An Advance Directive? Yes Cpr, Transfer To Hosp, Short Term Dialysis, Art Nutrition And Hydration Okay NO Intubation Signed Information not available 01/05/2024 What Is Your Level Of Alcohol Consumption? None [id number] Information not available 12/10/2019 How Much Tobacco Do You Chew? None [id number] Information not available 12/10/2019 What Is Your Code Status? DNI Information not available 01/09/2024 Do You Or Have You Ever Used E-cigarettes Or Vape? Never Used Electronic Cigarettes [id number] Information not available 12/10/2019 Where Do You Live? SingleLevelHouse Lives Alone, Has Ramp Information not available 01/09/2024 Legal Guardian? No Information not available 01/09/2024 Do You Have A Medical Power Of Aircraft Avionics Technician? Yes Information not available 01/09/2024 What Was The Date Of Your Most Recent Tobacco Screening? 01/05/2024 Information not available 01/05/2024 Do You Have An Out Of Hospital DNR? No Information not available 01/09/2024 What Is Your Relationship Status? Information not available 01/09/2024 Do You Or Have You Ever Used Smokeless Tobacco? Never Used Smokeless Tobacco [id number] Information not available 12/10/2019 How Much Tobacco Do You Smoke? No Information not available 01/09/2024 Do You Use Any Illicit Or Recreational Drugs? No Information not available 01/09/2024 Has Tobacco Cessation Counseling Been Provided? No N/a As Pt No Longer Smokes Information not available 01/09/2024 How Many Years Have You Smoked Tobacco? 20 [id number] Information not available 12/10/2019 Do You Or [...] SNOMED-CT Code Diagnosis ICD10 Code Diagnosis Note [id number] ANN PALENCIA [address] [address] 09/01/2017 13:57:54 09/14/2017 14:32:28 Sepsis 05478885 A40.1 PT/OT eval and treatvanco 750 mg IV qdfollow vanco troughsfol low up with IDhickman in right chestmonit or for resolution Osteomyeli tis of ankle AND/OR foot 78653848 M86.8X7 pain controlID follow upoxycodon e 5 mg q 6 hrs prntylenol 650 mg q 6 hrs prnvanco 750 mg IV qd follow vanco troughs zarate in right chest monitor for resolution Essential hypertension 59680492 I10 lasix 80 mg bidnifedip ine 60 mg qdmonitor b/p and labs Diabetes mellitus 280936 09 E11.69 humalog SSIlantus 36 units qdmonitor afmudyhO3v 7.3 currentlym onitor for s/s of hypo/hyper glycemia Anemia 863872105 D50.8 ferrous sulfate 325 mg bidvitamin C 500 mg qdfollow labstransf use as needed Gastroesop hageal reflux disease without esophagitis 861784046 K21.9 not currently on medication monitor for symptoms Mixed hyperlipidemia 267 790503 E78.2 atorvastat in 20 mg qdfollow labs Diabetic foot ulcer 3710 51548 E11.42 wound md quiles and treat-here wound dsg as orderedmon itor for worsening infection Chronic ki dney disease stage 3 382078453 N18.3 avoid nephrotoxi c medication smonitor labs Neuropathy due to diabetes mellitus 371449069 E11.42 pain controlmon itor Asthma 540436202 J45.99 8 albuterol 2 puffs q 4 hrs prnloratad ine 10 mg qdmonitor respirator y status [id number] [facility] [address] [place] [address] 09/08/2017 07:54:29 09/14/2017 15:12:58 Sepsis 70174736 A40.1 PT/OT eval and treatvanco 750 mg IV qdfollow vanco troughsfol low up with IDhickman in right chestmonit or for resolution Osteomyeli tis of ankle AND/OR foot 56890809 M86.8X7 pain controlID follow upoxycodon e 5 mg q 6 hrs prntylenol 650 mg q 6 hrs prnvanco 750 mg IV qd follow vanco troughs zarate in right chest monitor for resolution Essential hypertension 85790109 I10 lasix 40 mg bidnifedip ine 60 mg qdmonitor b/p and labs Diabetes mellitus 419839 09 E11.69 humalog SSIlantus 36 units qdmonitor glucosemon itor for s/s of hypo/hyper glycemia Anemia 429935734 D50.8 ferrous sulfate 325 mg bidvitamin C 500 mg qdfollow labstransf use as needed Gastroesop hageal reflux disease without esophagitis 499688603 K21.9 not currently on medication monitor for symptoms Mixed hyperlipidemia 267 766719 E78.2 atorvastat in 20 mg qdfollow labs Diabetic foot ulcer 3710 87780 E11.42 wound dsg as orderedmon itor for worsening infectionf ollow up with surgeon Chronic ki dney disease stage 3 018347684 N18.3 avoid nephrotoxi c medication smonitor labs Neuropathy due to diabetes mellitus 891513592 E11.42 pain controlmon itor Asthma 141613711 J45.99 8 albuterol 2 puffs q 4 hrs prnloratad ine 10 mg qdmonitor respirator y status Goiter 8185015 E04.8 patient states PCP is aware in community onitor [id number] Il Crenshaw [facility] [address] [facility] [address] [place] [address] 09/09/2017 19:34:48 09/12/2017 03:47:51 Osteomyelitis of ankle AND/OR foot 82490976 M86.9 f/u dr fernando 2 weeks elevate leg pack right lateral debrided site with 1/2 packing and adaptic to plantar site then cover with 4/4 and wrap with kerlix daily continue iv abx, pain control continue to monitor site Diabetic foot ulcer 3710 14953 E11.40 continue to monitor f/s assess site daily [id number] MD YOLANDE Maldonado [address] [place] [address] [place] [address] 09/10/2017 12:42:06 09/14/2017 15:26:11 Diabetic foot ulcer 751241756 L97.513 see HPIfollow surgical recsgoal is to prevent amputation [facility] and pain controltit rate vanco Osteomyeli tis of ankle AND/OR foot 46236995 M86.8X7 see HPIcontinu e vancomonit or infectionm onitor renal function in patient with baseline renal failure Chronic ki dney disease stage 3 591425038 N18.3 monitor renal function on IV vanco Essential hypertension 40007127 I10 lasix 40 mg bidmonitor bp and labsmonito r and titrate meds as needed Diabetes mellitus 003430 09 E11.9 monitor glucoseten ds to rise if infection getting worse Anemia 384464615 D50.1 acute on chronic anemiarequ ired recent tx with 2 units pRBCrepeat cbc and monitor need for further tx Gastroesop hageal reflux disease without esophagitis 831429938 K21.9 monitor for sx control [address] ANN PALENCIA [address] [address] 09/18/2017 17:19:21 10/10/2017 12:42:53 Osteomyelitis of ankle AND/OR foot 01093941 M86.8X7 pain controlID follow upoxycodon e 5 mg q 6 hrs prntylenol 650 mg q 6 hrs prnvanco 500 mg IV qd probioticf ollow vanco troughs zarate in right chest monitor for resolution Diabetic foot ulcer 3710 10425 E11.42 wound dsg as orderedmon itor for worsening infectionf ollow up with surgeonsee s in house wound mddebrided todaywill start zosyn 3.375 mg iv q 6 hrs [id number] ANA LANIER CHARLI [address] [place] [address] [place] [address] 09/27/2017 15:11:19 10/10/2017 13:25:30 Osteomyelitis of ankle AND/OR foot 79967310 M86.8X7 pain controlID follow upoxycodon e 5 mg q 6 hrs prntylenol 650 mg q 6 hrs prnvanco 500 mg IV qd probiotic- add Imodium 2 gm q 6 PRN due to loose stoolsNurs ing will monitor for question of c. difffollow vanco troughs zarate in right chest monitor for resolution Diabetic foot ulcer 3710 76501 E11.42 wound dsg as orderedmon itor for worsening infectionf ollow up with surgeonsee s in house wound anabella see her again on inue zosyn 3.375 mg iv q 6 hrs [id number] ANN PALENCIA [place] [address] [place] [address] 08/07/2019 09:53:22 08/09/2019 10:17:32 Vasovagal syncope 583464923 R55 resolved monitor Anemia 165422801 D50.8 ferrous sulfate 325 mg qdvitamin C 500 mg qd cyanocobal campbell 100 mcg qd follow labs labs are coming up slowly Chronic ki dney disease stage 3 126223717 N18.3 avoid nephrotoxi c medication smonitor labs Diabetes mellitus 514956 09 E11.21 toujeo (lantus) 55 units qd SSI lispro 16 units tid monitor glucosemon itor for s/s of hypo/hyper glycemia Asthma 426148661 J45.99 8 albuterol 2 puffs qid prnloratad ine 10 mg qdmonitor respirator y status Essential hypertension 76304971 I10 lasix 40 mg qdirbesart an 300 mg qdmonitor b/p and labs Mixed hyperlipidemia 267 316490 E78.2 atorvastat in 20 mg qdfollow labs Gastroesop hageal reflux disease without esophagitis 264401704 K21.9 not currently on medication monitor for symptoms Removal of internal fixation device 04651370 Z47.2 s/p removal right foot hardware prior to syncopal episode aquacel ag to wound bed, zinc to cheryl wound and cover with dsd monitor for s/s of infection Goiter 6751332 E04.8 patient saw endocrine in hospital and wants no further workupmoni tor Acute insomnia 047849846 G47.09 melatonin 5 mg q hs monitor sleep [id number] Gilson Davidson MD [address] [place] [address] [place] [address] 08/12/2019 14:04:40 08/19/2019 15:16:58 Vasovagal syncope 729692931 R55 see HPImonitor bp Removal of internal fixation device 70018552 Z47.2 see HPIs/p hardware removal RLEre-eval by ortho and wound cauterized with silver nitratemon itor sitefollow ortho recsNWB till cleared by orthoPT OT eval and treat Anemia 189463573 D50.8 post op anemiamoni tor cbc and need for tx Chronic ki dney disease stage 3 568006739 N18.3 baseline CRF stage 3monitor renal functionav oid nephrotoxi c medication snephro consult prn Diabetes mellitus 344948 09 E11.21 lantus increased to 55 units qd on morning of admit to hospital continue insulin SSmonitor need to adjust Essential hypertension 18539550 I10 lasix 40 mg qdirbesart an 300 mg qdmonitor bp and renal functionti trate prn Mixed hyperlipidemia 267 792534 E78.2 lipitor 20 mg qdcontinue Gastroesop hageal reflux disease without esophagitis 852611887 K21.9 carrying dxstable at baselinemo nitor for sx Goiter 2590409 E04.8 by report refuses further w/u [id number] ANN PALENCIA [address] [place] [address] [place] [address] 08/13/2019 10:31:44 08/19/2019 15:20:39 Vasovagal syncope 267673180 R55 resolved follow up with PCP Removal of internal fixation device 28422847 Z47.2 s/p removal right foot hardware prior to syncopal episode aquacel ag to wound bed, zinc to cheryl wound and cover with dsd follow up with PCP/shahid anne on 08/20/19 Anemia 825387244 D50.8 ferrous sulfate 325 mg qdvitamin C 500 mg qd cyanocobal campbell 100 mcg qd follow up with PCP Chronic ki dney disease stage 3 626478128 N18.3 follow up with PCP Diabetes mellitus 041508 E11.21 toujeo (lantus) 55 units qd sliding scale insulin lispro 16 units tid follow up with PCP Asthma 152291015 J45.99 8 albuterol 2 puffs qid prnloratad ine 10 mg qdfollow up with PCP Essential hypertension 82865699 I10 lasix 40 mg qdirbesart an 300 mg qdfollow up with PCP Mixed hyperlipidemia 267 534524 E78.2 atorvastat in 20 mg qdfollow up with PCP Gastroesop hageal reflux disease without esophagitis 227497418 K21.9 not currently on medication follow up with PCP Goiter 4143814 E04.8 patient saw endocrine in hospital and wants no further workupfoll ow up with PCP Acute insomnia 833315155 G47.09 melatonin 5 mg q hs follow up with PCP [id number] Coco Patiño NP [address] [address] 01/05/2024 08:14:27 01/08/2024 10:24:50 Chronic kidney disease stage 3 178618481 N18.30 avoid nephrotoxi c medication smonitor labs weekly on wednesdays Diabetes mellitus 667578 09 E11.21 *(note doses adjusted in hospital)S SI lisprolant us 20 units sc qhsmonitor glucose qid acmonitor for s/s of hypo/hyper glycemia Essential hypertension 22526010 I10 *hydralazi ne 25 mg po bid (added in hosp)losar aguilera 50 mg qd (reduced from 100 mg qd at home prior)murray tor b/p and labs and adjust as needed Mixed hyperlipidemia 267 296534 E78.2 rosuvastat in 5mg qdfollow labs Gastroesop hageal reflux disease without esophagitis 381736117 K21.9 not currently on medication monitor for symptoms Goiter 9389449 E04.8 hx ofpt requesting records from [facility] regarding left goiter biopsy done on 11/23/23mo nitor for results Anemia 504207276 D50.8 325 mg ferrous sulfate q monthmonit or for s/s of anemia and cbc wednesdays Seasonal allergy 2071561 04 J30.2 claritin 10 mg qdmonitor Constipation 84341262 K5 9.00 senna 8.6 mg qd prnhouse bowel protocol Osteomyeli tis of ankle AND/OR foot 17996085 M86.8X7 cefazolin q 8 hours until 02/11probi otic 1 tab po bid until 30left right plantar lateral foot: ns, pat dry, skip prep to periwound, lightly pack with AG, cover with gauze, abd and wrap dailywound consult for carefu up with [facility] infectious diseasecbc , bmp, crp, esr weekly on wednesdays PT/OT eval and treattyl prn pain, does not want pain medication s Cellulitis 085449129 L03 .90 see above osteo Diabetic foot ulcer 3710 13990 E11.42 see above osteo Neuropathy due to diabetes mellitus 830856732 E11.42 see abovemonit or Acute kidney injury 1466 9001 N17.9 resolved in hosp with reduction of losartan and ivfavoid nephrotoxi c medsmonito r bmp weekly on mon Depressive disorder 3548 9007 F32.A sertraline 50 mg po qd Pressure i njury of sacral region of back 108468031 L89.159 pressure injury to buttocks stage 2( 2 areas of denuded skin and red cheryl area)ns wash, pat dry, and barrier creamcushi onoff load pressuremo nitor for changes Fracture o f neck of femur 2660325 S72.002A surgical repair done on 11/28/23, healing in nicely well approx and no sutures or staplesfu with ortho prn for recent surgical repair of femur fx Jan 09 at 1pm Epsteinmon itor for s/s of infection Charcot's joint of foot 744394149 M14.679 see osteo for wound above [id number] Kellie Padilla MD [address] [address] 01/09/2024 12:36:44 01/10/2024 10:34:09 Osteomyelitis of ankle AND/OR foot 47655094 M86.8X7 Continue cefazolin IV q 8 hrs until 02/11 to complete 6 wk course and probiotic 1 tab BID until 02/18 (7 days after end of abx)F/U with [facility] ID as planned.Mo nitor CBC/BMP/ES R/CRP weekly on Wednesdays and fax to ID.For pain pt wants only APAP 650 mg q 4 hrs prn. Diabetic foot ulcer 3710 15632 L97.519 Continue wound care as ordered.Mo nitor for healing. Fracture o f neck of femur 4189016 S72.002A Recovering well from hemiarthro plasty on 11/28.PT/O T as above.F/U with ortho in 01/09 as planned. Pressure i njury of sacral region of back 402660210 L89.159 Continue wound care as ordered.Mo nitor for healing. Chronic ki dney disease stage 3 108499288 N18.31 Back to baseline.C ontinue to avoid nephrotoxi c meds as able.Monit or labs.Renal consult prn. Diabetes mellitus 654560 09 E11.21 Sugars in good control since here.HgA1C 6.4Continu e lantus 20U qd and SSIMonitor fingerstic ks TID and HgA1C q 3 months. Essential hypertension 61685694 I10 Continues to be in poor control.It appears that losartan was not transcribe d from d/c summary to admission orders here, has only been getting hydralazin e 25 mg BID since hereWill restart losartan 50 mg qd (lowered due to CKD).Monit or BP and labs. Mixed hyperlipidemia 267 476470 E78.2 Continue rosuvastat in 5 mg qdMonitor labs as outpt. Gastroesop hageal reflux disease without esophagitis 439896162 K21.9 No current sxs, on no meds.Monit or for GI sxs. Goiter 9954497 E04.8 Bx done 11/23/23 was benign.F/U with endo as planned. Anemia 820847488 D50.8 Mild at baseline, likely due to CKD.Worsen ed after hip surgery as expected.C ontinue FeSO4 325 mg qdMonitor labs Seasonal allergy 2057664 04 J30.2 No current sxs.Contin ue loratadine 10 mg qdMonitor sxs. Constipation 76000009 K5 9.09 Continue bowel meds as ordered.Mo venus bowel function. Neuropathy due to diabetes mellitus 761209373 E11.42 On no meds specifical ly for neuropathy .Continue APAP as above.Murray tor sxs. Depressive disorder 2218 9007 F33.8 Mood good today.Cont inue sertraline 50 mg qdMonitor mood.Psych consult prn. Asthenia 66261891 R53.1 Remains deconditio jamal.Needs PT/OT for strengthen ing, balance, gait training, safety and function.C ontinue fall precaution s.Monitor for safety. Non-toxic multinodular goiter 74452363 E04.2 Bx done 11/23/23 was benign.F/U with endo as planned. [id number] Coco Patiño NP [address] [address] 01/18/2024 12:22:55 01/19/2024 11:21:15 Osteomyelitis of ankle AND/OR foot 86753646 M86.8X7 labs improving this weekContin uecefazoli n IV q 8 hrs until 02/11 to complete 6 wk courseprob iotic 1 tab BID until 02/18 (7 days after end of abx)F/U with [facility] ID as planned.Mo nitor CBC/BMP/ES R/CRP weekly on Wednesdays and fax to ID.For pain pt wants only APAP 650 mg q 4 hrs prn. Diabetic foot ulcer 3710 24014 L97.519 Continue wound care as ordered.Mo nitor for healing. Asthenia [id number] R53.1 Remains deconditio jamal.Needs PT/OT for strengthen ing, balance, gait training, safety and function.C ontinue fall precaution s.Monitor for safety. Fracture o f neck of femur 3088584 S72.002A Recovering well from hemiarthro plasty on 11/28.PT/O T as above.F/U with ortho in 01/09 as planned. ? if she went to appt? Pressure i njury of sacral region of back 671562751 L89.159 Continue wound care as ordered.Mo nitor for healing. Essential hypertension 59360736 I10 Continues to be in poor control, with elevated bpsconthyd ralazine 25 mg BID12/5 losartan will increase to 100 mg po qd (home dose)as her bp has been high and venkatesh is improving slightlyMo nitor BP and labs. Chronic ki dney disease stage 3 205871980 N18.31 Back to baseline.C ontinue to avoid nephrotoxi c meds as able.Monit or labs.Renal consult prn. Diabetes mellitus 104659 09 E11.21 Sugars in good control since here.HgA1C 6.4Continu elantus 20U qd and SSIMonitor fingerstic ks TID and HgA1C q 3 months. Gastroesop hageal reflux disease without esophagitis 752737778 K21.9 No current sxs, on no meds.01/17 will start zofran and omeprazole for vomiting and nausea latelyMoni tor for GI sxs. Anemia 558617569 D50.8 Mild at baseline, likely due to CKD.Worsen ed after hip surgery as expected.C ontinue FeSO4 325 mg qdMonitor labs Depressive disorder 3548 9007 F33.8 Mood good today.Cont inue sertraline 50 mg qdMonitor mood.Psych consult prn. Recurrent falls 58461426 2 R29.6 reports loosing balance and fall on 01/16 without injurylike ly related to right foot ulcer/bruce ncePT OT eval and treatmonit or and supportive caresafety precaution s [id number] JHON KAYE NP [address] [address] 01/25/2024 10:41:10 01/26/2024 14:22:33 Osteomyelitis of ankle AND/OR foot 38459686 M86.8X7 VS, BS, labs stable.Con tinue:cefa zolin IV q 8 hrs until 02/11 to complete 6 wk courseprob iotic 1 tab BID until 02/18 (7 days after end of abx)APAP prn painF/U with [facility] as planned.Mo nitor CBC/BMP/ES R/CRP weekly on Wednesdays and fax to ID. Diabetic foot ulcer 3710 18498 L97.519 Continue wound care as ordered.Mo nitor for healing. Essential hypertension 01220122 I10 Better control the past week.Nola nue:Hydral azine 25 mg BIDLosarta n 100 mg po qd (increased 01/17, home dose, dose reduced due to VENKATESH)Monito r BP and labs. Asthenia 34293270 R53.1 Remains deconditio jamal.Needs PT/OT for strengthen ing, balance, gait training, safety and function.C ontinue fall precaution s.Monitor for safety. Recurrent falls 96481759 2 R29.6 reports loosing balance and fall on 01/16 without injurylike ly related to right foot ulcer/bruce ncePT OT eval and treatmonit or and supportive caresafety precaution s Fracture o f neck of femur 1481885 S72.002A Recovering well from hemiarthro plasty on 11/28.PT/O T as above.F/U with ortho as planned.AP AP prn painMonito r CSM Pressure i njury of sacral region of back 672084958 L89.159 Continue wound care as ordered.Mo nitor for healing. Chronic ki dney disease stage 3 955070512 N18.31 Back to baseline.C ontinue to avoid nephrotoxi c meds as able.Monit or labs.Renal consult prn. Diabetes mellitus 362129 09 E11.21 Sugars in good control since here.HgA1C 6.4Continu elantus 20U qd and SSIMonitor fingerstic ks TID and HgA1C q 3 months. Gastroesop hageal reflux disease without esophagitis 261267738 K21.9 No current sxs, on no meds.01/17 will start zofran and omeprazole for vomiting and nausea latelyMoni tor for GI sxs. Anemia 128185548 D50.8 Mild at baseline, likely due to CKD.Worsen ed after hip surgery as expected.C ontinue FeSO4 325 mg qdMonitor labs Depressive disorder 3548 9007 F33.8 Mood good today.Cont inue sertraline 50 mg qdMonitor mood.Psych consult prn. COVID-19 603488365 U07.1 Just tested positive this am.Resp. sx., mostly mild.Plan -isolation , rest, fluidsMoni tor VS satsSuppor tive care with APAP, robitussin PRNClosely monitor need for O2, dexamethas one, mucinex, molnupirav ir [id number] Coco [facility] [address] 02/01/2024 11:35:11 02/02/2024 12:48:48 COVID-19 693853465 U07.1 covid positve on 11/24remai ns testing positive and on isolationi solation, rest, fluidsMoni tor vitalsSupp ortive care with APAP, robitussin PRNClosely monitor need for O2, dexamethas one, mucinex, molnupirav ir Osteomyeli tis of ankle AND/OR foot 73457348 M86.8X7 labs improvingC ontinue:ce fazolin IV q 8 hrs until 02/11 to complete 6 wk courseprob iotic 1 tab BID until 02/18 (7 days after end of abx)APAP prn painF/U with [facility] as planned.Mo nitor CBC/BMP/ES R/CRP weekly on Wednesdays and fax to ID. Diabetic foot ulcer 3710 58495 L97.519 Continue wound care as ordered.Mo nitor for healing. Essential hypertension 37378689 I10 bp stable with increase of losartan back to home doseContin ue:Hydrala zine 25 mg BIDLosarta n 100 mg po qd (increased 01/17, home dose, dose reduced due to VENKATESH in hosp)Monit or BP and labs. Asthenia 58505752 R53.1 Remains deconditio jamal.Needs PT/OT for strengthen ing, balance, gait training, safety and function.C ontinue fall precaution s.Monitor for safety. Recurrent falls 97370819 2 R29.6 reports loosing balance and fall on 01/16 without injury, no further fallslikel y related to right foot ulcer/bruce ncePT OT eval and treatmonit or and supportive caresafety precaution s Fracture o f neck of femur 9539788 S72.002A Recovering well from hemiarthro plasty on 11/28.PT/O T as above.F/U with ortho as planned.AP AP prn painMonito r CSM Pressure i njury of sacral region of back 078852297 L89.159 Continue wound care as ordered.Mo nitor for healing. Chronic ki dney disease stage 3 792270084 N18.31 Back to baseline.C ontinue to avoid nephrotoxi c meds as able.Monit or labs.Renal consult prn. Diabetes mellitus 402034 09 E11.21 Sugars in good control since here. 114-171 stableHgA1 C 6.4Continu elantus 20U qd and SSIMonitor fingerstic ks TID and HgA1C q 3 months. Gastroesop hageal reflux disease without esophagitis 513726347 K21.9 No current sxs, on no meds.cont zofran and omeprazole for vomiting and nausea latelycons ider decreasing zofran and omeprazole in the near futureMoni tor for GI sxs. Anemia 183307532 D50.8 Mild at baseline, likely due to CKD.Worsen ed after hip surgery as expected.C ontinueFeS O4 325 mg qdMonitor labs Depressive disorder 3548 9007 F33.8 Mood good today.Cont inuesertra line 50 mg qdMonitor mood.Psych consult prn. [id number] Kellie Padilla MD [address] [address] 02/13/2024 16:07:50 02/15/2024 13:31:01 Essential hypertension 16046156 I10 Was good for awhile, now SBP [...] labs. Osteomyeli tis of ankle AND/OR foot 43839794 M86.8X7 ESR increased last week, but CRP good. Could be due to foot wound.Comp leted abx yest, continue probiotic 1 tab BID until 02/18 (7 days after end of abx)F/U with [facility], Dr. Carlton, , will have nursing call on 02/14 to see if she needs f/u.Monito r CBC/BMP/ES R/CRP weekly on Wednesdays and fax to ID.Continu e APAP 650 mg q 4 hrs prn for pain. [id number] Coco Patiño NP [address] [address] 02/16/2024 11:54:27 02/19/2024 13:17:38 Essential hypertension 74099690 I10 seems to have intermitte nt high bpwith recent adjustment sconthydra lazine 50 mg qhshydrala zine 25 mg po amlosartan 100 mg qd.Monitor BP and labs.cont adjusting prn Osteomyeli tis of ankle AND/OR foot 25223732 M86.8X7 labs and infection resolvingC ompleted abx IVcontinue probiotic 1 tab BID until 02/18 (7 days after end of abx)F/U with [facility], Dr. Carlton, [phone] 22Monitor CBC/BMP/ES R/CRP weekly on Wednesdays and fax to ID.? if see followed upContinue APAP 650 mg q 4 hrs prn for pain.monit or for s/s of infection Diabetic foot ulcer 3710 79884 L97.519 Continue wound care as ordered.Mo nitor for healing. Asthenia 22057721 R53.1 Remains deconditio jamal.Needs PT/OT for strengthen ing, balance, gait training, safety and function.C ontinue fall precaution s.Monitor for safety. Fracture o f neck of femur 1940141 S72.002A Recovering well from hemiarthro plasty on 11/28.PT/O T as above.F/U with ortho as planned.AP AP prn painMonito r CSM Pressure i njury of sacral region of back 911397172 L89.159 Continue wound care as ordered.Mo nitor for healing. Chronic ki dney disease stage 3 746880674 N18.31 Back to baseline.C ontinue to avoid nephrotoxi c meds as able.Monit or labs.Renal consult prn. Diabetes mellitus 053364 09 E11.21 Sugars in good control since here. stableHgA1 C 6.4Continu elantus 20U qd and SSIMonitor fingerstic ks TID and HgA1C q 3 months. Gastroesop hageal reflux disease without esophagitis 279276967 K21.9 No current sxs, on no meds.cont omeprazole qdzofran 4 mg po prn q 6Monitor for GI sxs. Anemia 165785712 D50.8 Mild at baseline, likely due to CKD. stableWors ened after hip surgery as expected.C ontinueFeS O4 325 mg qdMonitor labs Depressive disorder 3548 9007 F33.8 Mood good today.Cont inuesertra line 50 mg qdMonitor mood.Psych consult prn. Non-toxic multinodular goiter 03293070 E04.2 hx ofpt requesting records from [facility] [place] goiter biopsy done on 11/23/23, monitor for results and re request today [id number] Coco Patiño NP [address] [address] 02/19/2024 08:19:03 02/21/2024 14:18:17 Essential hypertension 75159588 I10 seems to have intermitte nt high bpwith recent adjustment scont02/18/ increase hydralazin e to 50 mg bidcontlos abigail 100 mg qd.Monitor BP and labs.cont adjusting prn Osteomyeli tis of ankle AND/OR foot 75787533 M86.8X7 labs and infection resolvingC ompleted abx IVcontinue probiotic 1 tab BID until 02/18 (7 days after end of abx)F/U with [facility], Dr. Carlton, [phone] 22Monitor CBC/BMP/ES R/CRP weekly on Wednesdays and fax to ID.? if see followed upContinue APAP 650 mg q 4 hrs prn for pain.monit or for s/s of infection remove picc line, second request Diabetic foot ulcer 3710 89812 L97.519 Continue wound care as ordered.Ross donovan for healing. Asthenia [id number] R53.1 Remains deconditio jamal.Needs PT/OT for strengthen ing, balance, gait training, safety and function.C ontinue fall precaution s.Monitor for safety. Fracture o f neck of femur 6983476 S72.002A Recovering well from hemiarthro plasty on 11/28.PT/O T as above.F/U with ortho as planned.AP AP prn painMonito r CSM Pressure i njury of sacral region of back 359968643 L89.159 Continue wound care as ordered.Ross donovan for healing. Chronic ki dney disease stage 3 141334918 N18.31 Back to baseline.C ontinue to avoid nephrotoxi c meds as able.Monit or labs.Renal consult prn. Diabetes mellitus 784227 09 E11.21 Sugars in good control since here. stableHgA1 C 6.4Continu elantus 20U qd and SSIMonitor fingerstic ks TID and HgA1C q 3 months. Gastroesop hageal reflux disease without esophagitis 207691505 K21.9 No current sxs, on no meds.cont omeprazole qdzofran 4 mg po prn q 6Monitor for GI sxs. Anemia 653362721 D50.8 Mild at baseline, likely due to CKD. stableWors ened after hip surgery as expected.C ontinueFeS O4 325 mg qdMonitor labs Depressive disorder 3548 9007 F33.8 Mood good today.Cont inuesertra line 50 mg qdMonitor mood.Psych consult prn. Non-toxic multinodular goiter 26920798 E04.2 hx ofpt requesting records from [facility] [place] left goiter biopsy done on 11/23/23, monitor for results and re request today02/18 request biopsy [id number] Coco Patiño NP [address] [facility] [place] [address] 02/22/2024 08:40:30 02/23/2024 10:26:46 Essential hypertension 82437328 I10 seems to have intermitte nt high bpwith recent adjustment s improvingc onthydrala zine to 50 mg bidlosarta n 100 mg qd.Monitor BP and labs.cont adjusting prn Osteomyeli tis of ankle AND/OR foot 48456018 M86.8X7 labs and infection resolvingC ompleted abx IVcontinue probiotic 1 tab BID until 02/18 (7 days after end of abx)F/U with [facility], Dr. Carlton, [phone] 22Monitor CBC/BMP/ES R/CRP weekly on Wednesdays and fax to ID.? if see followed upContinue APAP 650 mg q 4 hrs prn for pain.monit or for s/s of infectionp icc removed on 02/18 Diabetic foot ulcer 3710 30049 L97.519 Continue wound care as ordered.Ross donovan for healing. Asthenia 57131314 R53.1 Remains deconditio jamal.Needs PT/OT for strengthen ing, balance, gait training, safety and function.C ontinue fall precaution s.Monitor for safety. Fracture o f neck of femur 0909859 S72.002A Recovering well from hemiarthro plasty on 11/28.PT/O T as above.F/U with ortho as planned.AP AP prn painfu with Dr schmidt on 02/22, family to take her Pressure i njury of sacral region of back 101676981 L89.159 Continue wound care as ordered.Mo nitor for healing. Chronic ki dney disease stage 3 091911733 N18.31 Back to baseline.C ontinue to avoid nephrotoxi c meds as able.Monit or labs.Renal consult prn. Diabetes mellitus 498778 09 E11.21 Sugars in good control since here. stableHgA1 C 6.4Continu elantus 20U qd and SSIMonitor fingerstic ks TID and HgA1C q 3 months. Gastroesop hageal reflux disease without esophagitis 440388417 K21.9 No current sxs, on no meds.cont omeprazole qdzofran 4 mg po prn q 6Monitor for GI sxs. Anemia 865792168 D50.8 Mild at baseline, likely due to CKD. stableWors ened after hip surgery as expected.C ontinueFeS O4 325 mg qdMonitor labs Depressive disorder 3548 9007 F33.8 Mood good today.Cont inuesertra line 50 mg qdMonitor mood.Psych consult prn. Non-toxic multinodular goiter 40148238 E04.2 hx ofpt requesting records from [facility] regarding left goiter biopsy done on 11/23/23, results obtained and benign.she does have large left neck goiter and needs fu02/22/24 referral to [facility]ocrin[facility] [place]gy requested today [id number] JOHN KAYE NP [address] [address] 02/28/2024 13:35:19 02/29/2024 16:23:48 Essential hypertension 89021823 I10 Still running on the higher sideCurren tly on:hydrala zine to 50 mg bid - just increased 02/18 - consider tid dosinglosa rtan 100 mg qd.Monitor BP and labs.cont adjusting prn Non-toxic multinodular goiter 02897964 E04.2 hx ofpt requesting records from [facility] regarding left goiter biopsy done on 11/23/23, results obtained and benign.she does have large left neck goiter and needs fu02/22/24 referral to [facility] endocrin[facility] requested Osteomyeli tis of ankle AND/OR foot 52293254 M86.8X7 labs and infection resolvingC ompleted abx IV and probioticF /[facility] Dr. Carlton, [phone] 22Monitor CBC/BMP/ES R/CRP weekly on Wednesdays and fax to ID.Continu e APAP 650 mg q 4 hrs prn for pain.monit or for s/s of infectionp icc removed on 02/18 Diabetic foot ulcer 3710 68498 L97.519 Continue wound care as ordered.Mo nitor for healing. Asthenia [id number] R53.1 Remains deconditio jamal.Needs PT/OT for strengthen ing, balance, gait training, safety and function.C ontinue fall precaution s.Monitor for safety. Fracture o f neck of femur 1327565 S72.002A Recovering well from hemiarthro plasty on 11/28.PT/O T as above.F/U with ortho as planned.AP AP prn painfu with Dr schmidt on 02/22, requesting office note for review Pressure i njury of sacral region of back 021829517 L89.159 Continue wound care as ordered.Mo nitor for healing. Chronic ki dney disease stage 3 416037034 N18.31 Back to baseline.C ontinue to avoid nephrotoxi c meds as able.Monit or labs.Renal consult prn. Diabetes mellitus 120767 09 E11.21 Sugars in good control since here. stableHgA1 C 6.4Continu elantus 20U qd and SSIMonitor fingerstic ks TID and HgA1C q 3 months. Gastroesop hageal reflux disease without esophagitis 309423823 K21.9 No current sxs, on no meds.cont omeprazole qdzofran 4 mg po prn q 6Monitor for GI sxs. Anemia 380970431 D50.8 Mild at baseline, likely due to CKD. stableWors ened after hip surgery as expected.C ontinueFeS O4 325 mg qdMonitor labs Depressive disorder 3548 9007 F33.8 Mood good today.Cont inuesertra line 50 mg qdMonitor mood.Psych consult prn. [id number] Coco Patiño NP [address] [address] 02/29/2024 13:36:58 03/01/2024 15:08:25 Essential hypertension 23998542 I10 BP high for some time now even with med increases, 165/80 and running on high side still increase hydralazin e from 50 mg bid to tidcontlos abigail 100 mg qd.Monitor BP and labs.cont adjusting prn Non-toxic multinodular goiter 40662764 E04.2 hx ofpt requesting records from [facility] [place] left goiter biopsy done on 11/23/23, results obtained and benign with less than 4% malignancy rateshe does have large left neck goiter and needs fu02/22/24 referral to [facility]ocr[facility] requested Osteomyeli tis of ankle AND/OR foot 56173293 M86.8X7 labs and infection resolvingf ollowed by wound team hereComple mikal abx IV and probioticF /U with [facility], Dr. Carlton, [phone] 22Monitor CBC/BMP/ES R/CRP weekly on Wednesdays and fax to ID.Continu eAPAP 650 mg q 4 hrs prn for pain.monit or for s/s of infectionp icc removed on 02/18 and no fevers, chills or s/s of infection Diabetic foot ulcer 3710 58189 L97.519 Continue wound care as ordered.Mo nitor for healing. Asthenia 35042370 R53.1 Remains deconditio jamal.Needs PT/OT for strengthen ing, balance, gait training, safety and function.C ontinue fall precaution s.Monitor for safety. Fracture o f neck of femur 9781691 S72.002A Recovering well from hemiarthro plasty on 11/28.PT/O T as above.F/U with ortho as planned.AP AP prn painfu with Dr schmidt on 02/22, requesting office note for review, pt states no new changes Pressure i njury of sacral region of back 856594247 L89.159 Continue wound care as ordered.Mo nitor for healing. Chronic ki dney disease stage 3 155203686 N18.31 Back to baseline.C ontinue to avoid nephrotoxi c meds as able.Monit or labs.Renal consult prn. Diabetes mellitus 920355 09 E11.21 Sugars in good control since here. stable 130s latelyHgA1 C 6.4Continu elantus 20U qd and SSIMonitor fingerstic ks TID and HgA1C q 3 months. [id number] Gilson Davidson [facility] [address] 03/06/2024 10:15:20 03/07/2024 11:03:13 Essential hypertension 37825115 I10 hydralazin e recently increasedm onitor bp and titrate if remains elevated Osteomyeli tis of ankle AND/OR foot 70912272 M86.8X7 completed IV abxstill with right foot ulcer requiring wound carecoordi panchito with ID and update with concerns Asthenia 92766900 R53.1 ambulating short distance with walker and therapyhow ever still requiring 24/7 carePatien t lives alone currently unable to be cared for in communityI nsurance is dischargin g however social work is assisting with [facility] Chronic ki dney disease stage 3 153321255 N18.31 monitor renal functionav oid nephrotoxi c meds as ablenephro consult prn [id number] Coco Patiño NP [address] [address] 03/15/2024 08:39:43 03/26/2024 13:38:06 Osteomyelitis of ankle AND/OR foot 67513573 M86.8X7 completed IV abxstill with right foot ulcer requiring wound care team and now new malodor and callous open with drainage start doxycyclin e 100 mg po bid x 10days with probiotic and reevalfu with ID and update with concerns prnwound team to follow for debridemen t and local carefollow bmp and cbc weekly Asthenia 00451995 R53.1 ambulating short distance with walker and therapyhow ever still requiring 24/7 carePatien t lives alone currently unable to be cared for in communitys ocial work to cont for safe dc plan with ready, she is currently requiring abx for foot infection and has open wound to right charcot foot causing balance issues Essential hypertension 67259696 I10 bps 130s post meds with recent increases of meds belowhydra lazine 50 mg po tidlosarta n 200 mg po qdmonitor bp and titrate if remains elevated Chronic ki dney disease stage 3 341867092 N18.31 monitor renal functionav oid nephrotoxi c meds as ablenephro consult prn Nausea, vo miting and diarrhea 0063204 R11.2 resolved with mild case of nausea, vomiting, and diarrheazo andreina and immodium prnencoura ge po fluidsmoni tor for need for iVF [id number] JOHN KAYE, [facility] [place] [address] 03/27/2024 09:18:24 03/28/2024 13:24:31 Osteomyelitis of ankle AND/OR foot 80842845 M86.8X7 completed IV abxstill with right foot ulcer - referred back to wound care due to decline in status.Com pleted doxycyclin e x 10 dWound debrided 03/26 - now with granular wound bed.Contin ue collagen and alginate dressing qd.VSS except for elevated BPfu with ID and update with concerns prnfollow bmp and cbc weekly Essential hypertension 19958596 I10 BP still runs on the higher side.Curre ntly on:hydrala zine 50 mg po tid -> increase to qid/q 6 hrslosarta n 200 mg po qdmonitor bp and titrate if remains elevated Asthenia 06408240 R53.1 ambulating short distance with walker and therapyhow ever still requiring 05/09 carePatien t lives alone currently unable to be cared for in communitys ocial work to cont for safe dc plan with ready, she is currently requiring abx for foot infection and has open wound to right charcot foot causing balance issues Chronic ki dney disease stage 3 559631076 N18.31 monitor renal functionav oid nephrotoxi c meds as ablenephro consult prn Non-toxic multinodular goiter 92883508 E04.2 hx ofpt requesting records from [facility] [place] left goiter biopsy done on 11/23/23, results obtained and benign.she does have large left neck goiter and needs fu02/22/24 referral to [facility]ocr[facility] aron requested, appt. set for 04/19 Diabetic foot ulcer 3710 38783 L97.519 Continue wound care as ordered. see above.Murray tor for healing. Fracture o f neck of femur 1769004 S72.002A Recovering well from hemiarthro plasty on 11/28.F/U with ortho as planned.AP AP prn pain Diabetes mellitus 518917 09 E11.21 Sugars in good control since here. stableHgA1 C 6.4Continu elantus 20U qd and SSIMonitor fingerstic ks TID and HgA1C q 3 months. Gastroesop hageal reflux disease without esophagitis 023857277 K21.9 No current sxs, on no meds.cont omeprazole qdzofran 4 mg po prn q 6Monitor for GI sxs. Anemia 551651985 D50.8 Mild at baseline, likely due to CKD. stableWors ened after hip surgery as expected.C ontinueFeS O4 325 mg qdMonitor labs Depressive disorder 3548 9007 F33.8 Mood good today.Cont inuesertra line 50 mg qdMonitor mood.Psych consult prn. [id number] JOHN KAYE NP [address] [address] 04/09/2024 13:52:03 04/11/2024 11:34:06 Chronic osteomyelitis of right foot 3751962718 999353 M86.671 See HPINow on rocephin 1 gm qd x 6 weeks.Hick man in placeAdd probiotic bid x 6 wksCBC, BMP, ESR, CRP q mondayM onitor Diabetic foot ulcer 3710 76228 L97.519 With cellulitis and chronic osteoConti nue Dakins and DCD dailyRefer to Wound team for eval and tx.No surgical interventi on at this timeContin ue abx. as above.Cont inue protein supplement Add MVI with minerals daily Cellulitis of right foot [id number] 3362301 L03.115 As aboveConti nue rocephin x 6 wksTRend VS and labs Chronic ki dney disease stage 3 976052756 N18.31 VENKATESH in hosp.monit or renal function q mondayA RB held in hospital, given fluids.elidia id nephrotoxi c meds as ablenephro consult prn Essential hypertension 09954091 I10 BP still runs on the higher side.Curre ntly on:hydrala zine 50 mg po q 6 hrslosarta n 100 mg po qdmonitor bp and labs and titrate if remains elevated Diabetes mellitus 016892 09 E11.21 Sugars in good control since jnulMnE8P 6.4Continu elantus 20U qd and SSIMonitor fingerstic ks TID and HgA1C q 3 months. Non-toxic multinodular goiter 69690486 E04.2 hx ofpt requesting records from [facility] regarding left goiter biopsy done on 11/23/23, results obtained and benign.she does have large left neck goiter and needs fu02/22/24 referral to [facility]ocr[facility] aron requested, appt. set for 04/19 Constipation 28403786 K5 9.09 stools al little soft, ? r/t abx.Not on scheduled laxativesA dding probiotic bid x 6 wksMonitor Anemia 535681554 D50.8 ContinueFe SO4 325 mg qdMonitor labs Depressive disorder 3548 9007 F33.8 Mood good today.Cont inuesertra line 50 mg qdMonitor mood.Psych consult prn. [id number] RENATO SOTELO, ORDER DISPATCHER [employer]IEF [address] [address] 04/17/2024 14:22:22 04/18/2024 16:15:20 Chronic osteomyelitis of right foot [id number] 170273 M86.671 See HPICurrent ly on rocephin 1 gm qd x 6 weeks.Hick man in placed.Con tinue probiotic bid x 6 wks while is on antibiotic .CBC, BMP, ESR, CRP q monday. Wbc and ESR stable.Mon itor Diabetic foot ulcer 3710 29790 L97.519 With cellulitis and chronic osteoConti nue collagen and silver alginate, and DCD dailyWound team following for treatment. No surgical interventi on at this timeContin ue abx. as above.Cont inue protein supplement Continue MVI with minerals daily Cellulitis of right foot [id number] 2065019 L03.115 As aboveConti nue rocephin x 6 wksTrend VS and labs Chronic ki dney disease stage 3 898467997 N18.31 V[facility] in hosp.monit or renal function q mondayA RB held in hospital, given fluids.Now back on ARBavoid nephrotoxi c meds as ablenephro consult prn Essential hypertension 41871951 I10 BP still runs on the higher side.Curre ntly on:hydrala zine 50 mg po q 6 hrslosarta n 100 mg po qdmonitor bp and labs and titrate if remains elevated Diabetes mellitus 526184 09 E11.21 Sugars in good control since aodqCcY1O 6.4Continu elantus 20U qd and SSIMonitor fingerstic ks TID and HgA1C q 3 months. Non-toxic multinodular goiter 46333306 E04.2 hx ofpt requesting records from [facility] regarding left goiter biopsy done on 11/23/23, results obtained and benign.she does have large left neck goiter and needs fu02/22/24 referral to [facility] endocrinol aron requested, appt this Monday (04/19/24) Constipation 53327919 K5 9.09 Denies constipati on or loose stool.Is on antibiotic and probiotic bid x 6 wksMonitor Anemia 349593502 D50.8 ContinueFe SO4 325 mg qdMonitor labs Depressive disorder 3548 9007 F33.8 Mood good today.Cont inuesertra line 50 mg qdMonitor mood.Psych consult prn. [id number] [facility] [address] 04/24/2024 08:34:43 04/25/2024 14:23:02 Chronic osteomyelitis of right foot 9419557929 506351 M86.671 See HPICurrent ly on rocephin 1 gm qd x 6 weeks.Hick man to right chest in place.Cont inue probiotic bid x 6 wks while is on antibiotic end on 48CBC, BMP, ESR, CRP q monday. Wbc and ESR stable.Mon itor Diabetic foot ulcer 3710 22444 L97.519 With cellulitis and chronic osteoConti nue local care with collagen and silver alginate, and DCD daily per wound teamNo surgical interventi on at this timeContin ue abx. as above.Cont inue protein supplement Continue MVI with minerals daily Cellulitis of right foot 5702788358 3817105 L03.115 As aboveConti nue rocephin x 6 wks as aboveTrend VS and labs Chronic ki dney disease stage 3 356641833 N18.31 [facility] in hosp.monit or renal function q monday with bmpARB held in hospital, given fluids.Now back on ARBavoid nephrotoxi c meds as ablenephro consult prn Essential hypertension 20680709 I10 BP still runs on the higher side.Curre ntly on:hydrala zine 50 mg po q 6 hrslosarta n 100 mg po qdmonitor bp and labs and titrate if remains elevatedwi ll hold off on med changes for now with recent refusal of abx this ambp daily while on abx Diabetes mellitus 024584 09 E11.21 Sugars in good control in generalHgA 1C 7.8 on 04/09/24Con tinuelantu s 20U qd and SSIMonitor fingerstic ks TID and HgA1C q 3 months. Non-toxic multinodular goiter 46274531 E04.2 hx ofleft goiter biopsy done on 11/23/23, results obtained and benign done prior to admission here at [facility] does have large left neck goiter and needs fuon 04/19 saw [facility] endocrinol ogy and rec:Referr al to Dr Jacques for 12 cm thyroid nodule with tracheal deviation. Nursing to fu on this and make appt.Labs alb, bmp, calcium, free t 4, tsh and vit d. Can do here on 05/01 and fax to office at [facility] 10 weekss on 06/28/[address] salmon at [address] [place] [address], [address], [place] Constipation 03655070 K5 9.09 Denies constipati on today, but has hx with bowel urgeIs on antibiotic and probiotic bid x 6 wkswill get KUB todayMonit or Loose stool 913291883 R1 9.5 with complaint that she has an urge to defecate but occ loose stool and most of the time nothing- she is confused about actual stools, firmness and frequency however refuses abx today due to thisShe refuses that she is constipate d, however has a hx of thisShe is agreeable to workup and will resume abx daniela, wants a day offrisks of not adhering to abx reviewedsend stool sample for cdiff, norovirusu rinalysis with c & SKUB for upset stomach ro constipati on vs gi symptoms to guide treatmentl abs pending from todayimmod ium prnzofran prnmonitor closely [id number] Coco Patiño NP [facility] [address] [address] 04/25/2024 15:37:16 04/29/2024 13:20:33 Constipation 69763877 K59.09 KUB from 04/24 shows stool burdenlike ly urge to defecate is from constipati on04/24dc immodiumst art mom 60 cc and bisacodyl 10 mg supp nowMonitor for resolution [id number] Coco Patiño NP [facility] [place] [address] [place] [address] 04/29/2024 15:24:56 05/01/2024 10:30:35 Constipation 63309685 K59.09 seems resolvedKU B from 04/24 shows stool burden, had mom and bisacodyl with reliefrema ins on senna 8.6 mg po q 24 hours prnsee is not open to sched laxativesM onitor for resolution Chronic os teomyelitis of right foot 3413497045 401424 M86.671 See HPICurrent ly on rocephin 1 gm qd x 6 weeks to complete on ickman to right chest in place.Cont inue probiotic bid x 6 wks while is on antibiotic end on BC, BMP, ESR, CRP q monday. Wbc and ESR stable.Mon itor Cellulitis of right foot 4035591975 4234224 L03.115 As aboveConti nue rocephin x 6 wks as aboveTrend VS and labs Diabetic foot ulcer 3710 06481 L97.519 With cellulitis and chronic osteoConti nue local care with collagen and silver alginate, and DCD daily per wound teamNo surgical interventi on at this timeContin ue abx. as above.Cont inue protein supplement Continue MVI with minerals daily Non-toxic multinodular goiter 92694718 E04.2 hx ofleft goiter biopsy done on 11/23/23, results obtained and benign done prior to admission here at [facility] does have large left neck goiter and needs fuon 04/19 saw [facility] endocrinol ogy and rec:Referr al to Dr Jacques for 12 cm thyroid nodule with tracheal deviation. Nursing to fu on this and make appt., will have them fu todayLabs alb, bmp, calcium, free t 4, tsh and vit d. Can do here on 05/01 and fax to office at [facility] 10 weeks on 06/28/[address] salmon at [address] [place] [address], [address], [facility] ki dney disease stage 3 771532572 N18.31 [facility]ATES[facility] in hosp.monit or renal function q monday with bmpARB held in hospital, given fluids.Now back on ARBavoid nephrotoxi c meds as ablenephro consult prn Essential hypertension 26415934 I10 BP still runs on the higher side.Curre ntly on:hydrala zine 50 mg po q 8 hrslosarta n 100 mg po qdmonitor bp and labs and titrate if remains elevatedwi ll hold off on med changes for now with recent refusal of abx this ambp daily while on abx [id number] Coco Patiño NP [facility] [address] [facility] [place] [address] 05/06/2024 14:53:18 05/08/2024 15:13:51 Chronic osteomyelitis of right foot 1017317592 023542 M86.671 See HPICurrent ly on rocephin 1 gm qd x 6 weeks to complete on ickman to right chest in place.05/06 cannot use heparin now and refuses-st ates allergywil l flush with 10 cc NS tid for 1.5 weeks until 05/[address]'cdContin ue probiotic bid x 6 wks while is on antibiotic end on 05/21Wbc and ESR stable and improvingM onitorvita ls dailyCBC, BMP, ESR, CRP q monday. Cellulitis of right foot 9725878936 9540582 L03.115 As above Diabetic foot ulcer 3710 53200 L97.519 With cellulitis and chronic osteo as aboveConti nue local care with collagen and silver alginate, and DCD daily per wound teamNo surgical interventi on at this timeContin ue abx. as above.Cont inue protein supplement Continue MVI with minerals daily Essential hypertension 86632006 I10 BP stable latelycont hydralazin e 50 mg po q 8 hrslosarta n 100 mg po qdmonitor bp and labs and titrate if remains elevatedwi ll hold off on med changes for now with recent refusal of abx this ambp daily while on abx Non-toxic multinodular goiter 77409011 E04.2 hx ofleft goiter biopsy done on 11/23/23, results obtained and benign done prior to admission here at [facility] does have large left neck goiter and needs fuon 04/19 saw [facility] endocrinol ogneelima and rec:Referr al to Dr Jacques for 12 cm thyroid nodule with tracheal deviation. Nursing to fu on this and make appt., will have them fu todayLabs alb, bmp, calcium, free t 4, tsh and vit d. Can do here on 05/01 and fax to office at fax these labs to office below pleaseFu 10 weeks on 06/28/[address] salmon at [address] [place] [address], [address], [facility] dney disease stage 3 512955643 N18.31 [facility]KATESH in hosp.monit or renal function q monday with bmpARB held in hospital, given fluids.Now back on ARBavoid nephrotoxi c meds as ablenephro consult prn Anemia 360321659 D50.8 Mild at baseline, likely due to CKD. stableWors ened after hip surgery as expected.C ontinueFeS O4 325 mg qd(ns reports skipping iron at times)will encourage need for ironMonito r labs [id number] JOHN KAYE NP [address] [address] 05/09/2024 09:33:11 05/13/2024 11:28:22 Chronic osteomyelitis of right foot 2600711044 037588 M86.671 See HPICurrent ly on rocephin 1 gm qd as well as probiotic x 6 weeks to complete on 8Hickman to right chest in place, flushing with saline, pt. ref. heparin.VS SLabs stableFoll owvitals dailyCBC, BMP, ESR, CRP q monday. Cellulitis of right foot 3714427138 2250955 L03.115 As above Diabetic foot ulcer 3710 80063 L97.519 With cellulitis and chronic osteo as aboveConti nue local care per wound teamNo surgical interventi on at this time.Nola nue abx. as above.Cont inue protein supplement Continue MVI with minerals dailyWorki ng with rehab, currently NWB. Essential hypertension 01291379 I10 VSSconthyd ralazine 50 mg po q 8 hrslosarta n 100 mg po qdmonitor Non-toxic multinodular goiter 45021028 E04.2 hx ofleft goiter biopsy done on 11/23/23, results obtained and benign (done prior to admission here at [facility])Seen by [facility] Endo 04/19, referral made to Dr Jacques for 12 cm thyroid nodule with tracheal deviation. Labs 05/01 (alb, bmp, calcium, free t 4, tsh and vit d) - nsg. to have sent results to [facility] EndoF/U 06/28/[address] Salmon at [address] [place] [address], [address], [facility] dney disease stage 3 895489363 N18.31 V[facility]KATESH in hosp. - ARB held, given IVF with improvemen tMonitorin g renal function q monday - labs remaining stable.Now back on ARBavoid nephrotoxi c meds as ablenephro consult prn Anemia 818933106 D50.8 Mild at baseline, likely due to CKD.CBC stableCont inue FeSO4 325 mg qd, encourage compliance , can consdier reducing to qodMonitor labs Abnormal weight loss 267 853038 R63.4 187 -> 163.5 lbs if readings correct.St aff states she is eating meals and snacksDoes not look grossly thinnerPla n - weights 2x wk and record [id number] JOHN KAYE NP [facility] [address] [place] [address] 05/16/2024 13:32:07 05/20/2024 08:10:29 Abnormal weight loss 641516446 R63.4 187 -> 163.5 lbs if readings correct.Co ntinue to monitorSta ff states she is eating meals and snacksDoes not look grossly thinnerPla n - weights 2x wk and record Chronic os teomyelitis of right foot 5074206362 104928 M86.671 See HPICurrent ly on rocephin 1 gm qd as well as probiotic x 6 weeks to complete on 8Hickman to right chest in place, flushing with saline, pt. ref. heparin.VS SLabs stableFoll owvitals dailyCBC, BMP, ESR, CRP q monday. Cellulitis of right foot 7311171009 1100896 L03.115 As above Diabetic foot ulcer 3710 32097 L97.519 With cellulitis and chronic osteo as aboveConti nue local care per wound teamNo surgical interventi on at this time.Nola nue abx. as above.Cont inue protein supplement Continue MVI with minerals dailyWorki ng with rehab, currently NWB. Essential hypertension 74752718 I10 VSSconthyd ralazine 50 mg po q 8 hrslosarta n 100 mg po qdmonitor Non-toxic multinodular goiter 12767015 E04.2 hx ofleft goiter biopsy done on 11/23/23, results obtained and benign (done prior to admission here at [facility])Seen by [facility]o 04/19, referral made to Dr Jacques for 12 cm thyroid nodule with tracheal deviation. Labs 05/01 (alb, bmp, calcium, free t 4, tsh and vit d) - nsg. to have sent results to [facility] EndoF/U 06/28/[address] Salmon at [address] [place] [address], [address], [facility] dney disease stage 3 411819714 N18.31 V[facility]ATES[facility] in hosp. - ARB held, given IVF with improvemen tMonitorin g renal function q monday - labs remaining stable.Now back on ARBavoid nephrotoxi c meds as ablenephro consult prn Anemia 603480996 D50.8 Mild at baseline, likely due to CKD.CBC stableCont inue FeSO4 325 mg qd, encourage compliance , can consider reducing to qodMonitor labs [id number] JOHN KAYE NP [facility] [address] [address] 05/23/2024 09:18:47 05/27/2024 12:40:18 Abnormal weight loss 953127588 R63.4 187 -> 163.5 lbs if readings correct.Co ntinue to monitorSta ff states she is eating meals and snacksDoes not look grossly thinnerPla n - weights 2x wk and record - has been stable past 3 wks. Chronic os teomyelitis of right foot 1727067333 337443 M86.671 See HPIJust completed rocephin 1 gm qd as well as probiotic x 6 weeks on 4/8Hickman to right chest in place, flushing with saline, pt. ref. heparin. Refer back to [facility] for zarate removal.VS S - monitorLab s stable - continue to follow weekly for now since abx. stopped. Cellulitis of right foot 9431684608 6099464 L03.115 As above Diabetic foot ulcer 3710 37722 L97.519 With cellulitis and chronic osteo as aboveConti nue local care per wound teamNo surgical interventi on at this time.Nola nue abx. as above.Cont inue protein supplement Continue MVI with minerals dailyWorki ng with rehab, currently NWB. Essential hypertension 02520540 I10 VSSconthyd ralazine 50 mg po q 8 hrslosarta n 100 mg po qdmonitor Non-toxic multinodular goiter 27081040 E04.2 hx ofleft goiter biopsy done on 11/23/23, results obtained and benign (done prior to admission here at [facility])Seen by [facility]o 04/19, referral made to Dr Jacques for 12 cm thyroid nodule with tracheal deviation. Labs 05/01 (alb, bmp, calcium, free t 4, tsh and vit d) - nsg. to have sent results to [facility] EndoF/U 06/28/[address] Salmon at [address] [place] [address], [address], [facility] dney disease stage 3 189451784 N18.31 V[place]KATES[place] in hosp. - ARB held, given IVF with improvemen tMonitorin g renal function q monday - labs remaining stable.Now back on ARBavoid nephrotoxi c meds as ablenephro consult prn Anemia 234221446 D50.8 Mild at baseline, likely due to CKD.CBC stableCont inue FeSO4 325 mg qd, encourage compliance , can consider reducing to qodMonitor labs [id number] Coco Patiño NP [address] [address] 05/29/2024 11:10:48 05/29/2024 20:19:04 Chronic osteomyelitis of right foot 1071076356 150150 M86.671 See HPIcomplet ed rocephin 1 gm qd as well as probiotic x 6 weeks on ickman to right chest in place, flushing with saline, pt. ref. heparin,. [facility] for zarate removal on 05/30vitals dailyLabs stable as above- continue to follow weekly for now since abx. stopped. Cellulitis of right foot 3029769203 1919735 L03.115 As above Diabetic foot ulcer 3710 40981 L97.519 With cellulitis and chronic osteo as aboveConti nue local care per wound teamNo surgical interventi on at this time.Nola nue abx. as above.Cont inue protein supplement Continue MVI with minerals dailyWorki ng with rehab, currently NWB. Essential hypertension 95820518 I10 VSSconthyd ralazine 50 mg po q 8 hrslosarta n 100 mg po qdmonitor Non-toxic multinodular goiter 71903142 E04.2 hx ofleft goiter biopsy done on 11/23/23, results obtained and benign (done prior to admission here at [facility])Seen by [facility]o 04/19, referral made to Dr Jacques for 12 cm thyroid nodule with tracheal deviation. pt states her appt is in June.pt states she will just fu with [facility] dney disease stage 3 799290140 N18.31 [facility] in hosp. - ARB held, given IVF with improvemen tMonitorin g renal function q monday - labs remaining stable.Now back on ARBavoid nephrotoxi c meds as ablenephro consult prn Anemia 781659200 D50.8 Mild at baseline, likely due to CKD.CBC stableFeSO 4 325 mg qd, encourage compliance , can consider reducing to qodMonitor labs Health Concerns Section Related Observation LastModified by Organization Detai ls LastModified Time None Recorded Concern Status LastModified by Organization Details LastModified Time None Recorded Advance Directives Directive Y: cpr, transfer to [facility], ort term dialysis, art nutrition and hydration okay NO intubationsigned Payers Encounter Date Sequence Insurance Name Policy Number Policy Hughes Covered Member ID Hughes Member ID Guarantor Name 05/06/2024 1 [place] HMO) [id number] Olga Kat [id number] 05/09/2024 1 [place] HMO) [id number] Olga Kat [id number] 05/16/2024 1 [place] HMO) [id number] Olga Kat [id number] 05/23/2024 1 [place] HMO) [id number] Olga Kat [id number] 05/29/2024 1 [place]MED[place] HMO) [id number] Olga Kat [id number] Ol[address] Kat Notes Date Note Type Note Provider Name and Address Organization Details Recorded Time 05/06/2024 text/html Pt is seen today for acute visit. PMH significant for HTN (poor control), AODM with neuropathy, CKD stage 3A, multinodular goiter, HLD, GERD, anemia, PVD, hx of right foot osteo, and hx of left femoral fx s/p hemiarthroplasty.Pt is seen for nursing concern of refusal to have zarate flushed with heparin today. She reports severe allergy with vomiting blood and refuses any type of heparin and lovenox. She continues on ceftriaxone sched until 05/21 by ID for osteo wound infection improving. wound Not seen today and followed by wound team here. Labs reviewed and improving overall. On exam, BJ is confused at baseline. abd is obese and soft. She denies any fever, chills, or other concerns. she has refused iron every other day lately. She is educated on need and importance. of noteShe readmitted from [facility] after a hospitalization due to diabetic charcot foot wound infection and osteomyelitis. Venous US neg for DVT.Foot x ray showed large soft tissue ulceration to the plantar posterior midfoot.MRI showing changes of Charcot foot, possible early abscess to plantar midfoot and concomitant osteomyelitis.Tx. with Vanc/Zosyn, changed to IV ceftriaxone based on cultures.Seen by ID - continue abx. for 6 wks upon discharge until 05/21.Seen by Surgery - no surgical intervention at this time. Repeat BC neg.Zarate placed 04/08.VENKATESH - possibly due to nausea and reduced po intake, treated with IVF. HTN - losartan held due to VENKATESH, continued hydralazine and metoprolol. Anemia - CBC stable. Other meds continued. Coco Patiño NP [address] [facility], [address], [place], [address], [facility] 05/06/2024 15:09:21 05/09/2024 text/html ANDREA is seen today for acute visit. PMH significant for HTN (poor control), AODM with neuropathy, CKD stage 3A, multinodular goiter, HLD, GERD, anemia, PVD, hx of right foot osteo, and hx of left femoral fx s/p hemiarthroplasty.She is being followed for chronic osteo of R foot as well as chronic foot wound.She remains on IV ceftriaxone, due to end 05/21.VSSBS 100sweights going down - sig. loss (187 -> 163.5 lbs) if scale correct.Labs 05/08 stable.Working with rehab, progress limited due to NWB status. Case discussed with staff who report she is eating and has good intake. Upon exam, ANDREA in in her w/c, just got back from working with rehab, was walking in the halls with walker and assist to maintain NWB status. She says she feels ok, no specific complaints. Mentions endocrine follow up in regards to her goiter. JOHN KAYE NP [address] [facility] [address], [address], [place], [address], [facility] [employer] [facility] 05/09/2024 12:56:40 05/16/2024 text/html ANDREA is seen today for a routine visit. She is a 63 yo lady, here for continued care and rehab mainly due to a right foot wound and infection.She is being followed for chronic osteo of R foot as well as chronic foot wound.She remains on IV ceftriaxone, due to end 05/21.VSSBS 100sweights going down - sig. loss (187 -> 163.5 lbs) if scale correct.Labs 4/2 stable except Bun a little higher than usualWorking with rehab, progress limited, now working with offloading shoe to help with ambulation. Case discussed with staff, no new issues or concerns. Upon exam, ANDREA is in bed resting, alert, NAD, feels good, no new complaints or issues. PMH significant for HTN (poor control), AODM with neuropathy, CKD stage 3A, multinodular goiter, HLD, GERD, anemia, PVD, hx of right foot osteo, and hx of left femoral fx s/p hemiarthroplasty. JOHN KAYE NP [address] [facility], [address], [place], [address], [employer] 05/16/2024 13:50:50 05/23/2024 text/html ANDREA is seen today for an acute visit. She is a 63 yo lady, here for continued care and rehab mainly due to a right foot wound and infection.She is being followed for chronic osteo of R foot as well as chronic foot wound.She just completed weeks of IV ceftriaxone, just ended 05/21.VSSBS +/- 100weights going down - sig. loss (187 -> 163.5 lbs) if scale correct, but has been stable for the past 3 weeks.Labs 05/22 stable.Now off rehab, continues with offloading shoe to help with ambulation.Continues with local wound care to right foot as per in house Wound Practitioner, currently using collagen and DCD daily. Case discussed with staff, no new issues or concerns. Upon exam, ANDREA is in her chair, alert, NAD, in good spirits. Feels good, no new complaints or issues. Asking about getting IV line removed now that IV abx. completed. PMH significant for HTN (poor control), AODM with neuropathy, CKD stage 3A, multinodular goiter, HLD, GERD, anemia, PVD, hx of right foot osteo, and hx of left femoral fx s/p hemiarthroplasty. JOHN KAYE NP [address] [facility], [address], [place], [address], [employer] 05/23/2024 13:05:10 05/29/2024 text/html Pt is seen for a n acute rounding visit. PMH significant for HTN (poor control), AODM with neuropathy, CKD stage 3A, multinodular goiter, HLD, GERD, anemia, PVD, hx of right foot osteo, and hx of left femoral fx s/p hemiarthroplasty. ANDREA is a 63 yo lady, here for continued care and rehab mainly due to a right foot wound and osteo infection to her charcot charli tooth affected foot. She just completed weeks of IV ceftriaxone, just ended 05/21 and has plan to have Zarate removed on 05/30/24. Since here BJ refuses heparin to flush her zarate and states she is allergic to it. NS flushes have been used and line remains patent. Vitals stable and right foot is healing in without obvious s/s of infection. No fever, chills, drainage, or overt warmth to foot. She is followed by wound team here and note 05/28: Right 5th MTH is stable. Right heel is improving. BS in good control 107-155 lately. She is unsure about plan from here as she reports living alone with daughter checking in her once in a while. Per social work the [facility] eldercare is touching base with daughter for plan of care. Coco Patiño, [facility] [address] [facility], [address], [place], [address], [facility] - [facility] 05/29/2024 20:19:02 OBGyn Episode No OBEpisode recorded.
--- OUTSIDE RECORDS SUMMARY | 2024-05-30 12:46 | XMS_ITS | Encounter Summary ---
Author Organization [facility] Address [address] [place] [address] Care Team Providers Care Distribution Associate Name Role Phone Kristin Bellamy MD Primary Care Provider [phone] Encounter Details Date Type Department Care Team (Late st Contact Info) Description 04/23/[address] [facility] - Main Lab [address] [facility] [place] [address] Gilson Davidson MD [address] [place] [address] [address] [facility] [address] Type 2 diabetes mellitus without complications (CMS/HCC [...] Date/Time Associated Diagnosis Comments SEDIMENTATION RATE Routine 04/24/2024 5: 44 AM EDT Type 2 diabetes mellitus without complications (CMS/HCC) Essential (primary) hypertension COMPLETE BLOOD COUNT Routine 04/24/2024 5:44 AM EDT Type 2 diabetes mellitus without complications (CMS/[facility]) Essential (primary) hypertension C-REACTIVE PROTEIN Routine 04/24/2024 5: 44 AM EDT Type 2 diabetes mellitus without complications (CMS/HCC) Essential (primary) hypertension BASIC METABOLIC PANEL Routine 04/24/2024 5:44 AM EDT Type 2 diabetes mellitus without complications (CMS/HCC) Essential (primary) hypertension documented in this encounter Results * (ABNORMAL) Basic metabolic panel (04/24/2024 5:44 AM EDT) Sodium 140 133 - 145 mmol/L LAB CHEMISTRY METHOD 04/24/2024 10:40 AM [facility] Potassium 4.0 3.5 - 5.5 mmol/L LAB CHEMISTRY METHOD 04/24/2024 10:40 AM [facility] Chloride 104 96 - 110 mmol/L LAB CHEMISTRY METHOD 04/24/2024 10:40 AM [facility] CO2 26 21 - 32 mmol/L LAB CHEMISTRY METHOD 04/24/2024 10:40 AM [facility] Anion Gap 10 3 - 11 LAB CHEMISTRY METHOD 04/24/2024 10:40 AM [facility] Glucose 112(H) 70 - 100 mg/dL LAB CHEMISTRY METHOD 04/24/2024 10:40 AM [facility] BUN 16 5 - 25 mg/dL LAB CHEMISTRY METHOD 04/24/2024 10:40 AM [facility] Creatinine 1.24(H) 0.50 - 1.10 mg/dL LAB CHEMISTRY METHOD 04/24/2024 10:40 AM [facility] eGFR 49(L) >=60 mL/min/1. 73m2 LAB CHEMISTRY METHOD 04/24/2024 10:40 AM [facility] Comment:Calculation based on the??Chronic Kidney Disease Epidemiology Collaboration (CKD-EPI) equation refit??without adjustment for race. BUN/Creatinine Ratio 12.9 LAB CHEMISTRY METHOD 04/24/2024 10:40 AM [facility] Calcium 9.1 8.5 - 10.5 mg/dL LAB CHEMISTRY METHOD 04/24/2024 10:[address] [facility] Blood Venous blood specimen / Unknown Venipuncture / Unknown 04/24/2024 5:44 AM EDT 04/24/2024 9:49 AM EDT us Gilson Davidson MD LAB BLOOD ORDERABLES Final Resul t [facility] [address] [place] [address], * (ABNORMAL) Complete blood count (04/24/2024 5:44 AM EDT) WBC 7.3 4.8 - 10.8 K/mcL LAB HEMETOLOGY METHOD 04/24/2024 10:12 AM [facility] RBC 3.90 3.80 - 4.80 M/mcL LAB HEMETOLOGY METHOD 04/24/2024 10:12 AM [facility] Hemoglobin 10.5(L) 11.5 - 16.0 g/dL LAB HEMETOLOGY METHOD 04/24/2024 10:12 AM [facility] Hematocrit 32.8(L) 35.0 - 47.0 % LAB HEMETOLOGY METHOD 04/24/2024 10:12 AM [facility] MCV 85.0 79.0 - 98.0 FL LAB HEMETOLOGY METHOD 04/24/2024 10:12 AM [facility] MCH 27.2 27.0 - 32.0 pcg LAB HEMETOLOGY METHOD 04/24/2024 10:12 AM [facility] MCHC 32.0 32.0 - 37.0 g/dL LAB HEMETOLOGY METHOD 04/24/2024 10:12 AM [facility] RDW 15.6(H) 11.0 - 15.0 % LAB HEMETOLOGY METHOD 04/24/2024 10:[address] [facility] Platelets 275 130 - 400 K/mcL LAB HEMETOLOGY METHOD 04/24/2024 10:[address] [facility] MPV 9.8 7.0 - 11.0 FL LAB HEMETOLOGY METHOD 04/24/2024 10:[address] [facility] NRBC 0.0 <1.0 % LAB HEMETOLOGY METHOD 04/24/2024 10:[address] [facility] NRBC Absolute 0.00 <0.10 K/mcL LAB HEMETOLOGY METHOD 04/24/2024 10:[address] [facility] Blood Venous blood specimen / Unknown Venipuncture / Unknown 04/24/2024 5:44 AM EDT 04/24/2024 9:49 AM EDT us Gilson Davidson MD LAB BLOOD ORDERABLES Final Resul t Performing Organization Address City/[facility]/ZIP Co de Phone Number [facility] [address] [place] [address], [place] [phone] * (ABNORMAL) Sedimentation rate (04/24/2024 5:44 AM EDT) Sed Rate 90(H) 0 - 30 mm/hr LAB HEMETOLOGY METHOD 04/24/2024 10:[address] [facility] Blood Venous blood specimen / Unknown Venipuncture / Unknown 04/24/2024 5:44 AM EDT 04/24/2024 9:49 AM EDT us Gilson Davidson MD LAB BLOOD ORDERABLES Final Resul t Performing Organization Address City/[facility]/ZIP Co de Phone Number [facility] [address] [place] [address], [place] [phone] * C-reactive protein (04/24/2024 5:44 AM EDT) C-Reactive Protein 0.30 <=0.50 mg/dL LAB CHEMISTRY METHOD 04/24/2024 10:41 AM EDT [facility] Blood Venous blood specimen / Unknown Venipuncture / Unknown 04/24/2024 5:44 AM EDT 04/24/2024 9:49 AM EDT us Gilson Davidson MD LAB BLOOD ORDERABLES Final Resul t [facility] ([facility]) [facility] [address] [place] [address], documented in this encounter Visit Diagnoses Diagnosis Type 2 diabetes mellitus without complications (CMS/HCC V24, CMS/HCC V28) Essential (primary) hypertension Unspecified essential hypertension documented in this encounter Care Teams Distribution Associate Relationship Specialty Start Date End Date Kristin Bellamy MD [address] [facility] [address] [place], [place] PCP - General Internal Medicine 11/29/19 documented as of this encounter
--- OUTSIDE RECORDS SUMMARY | 2024-05-30 12:46 | XMS_ITS | Encounter Summary ---
Author Organization [facility] Address [address] [place] [address] Care Team Providers Care Mobility Engineer Name Role Phone Kristin Bellamy MD Primary Care Provider [phone] Encounter Details Date Type Department Care Team (Late st Contact Info) Description 04/30/2024 Lab Requisition [facility] - Main Lab [address] [facility] [place] [address] Gilson Davidson MD [address] [place] [phone] Type 2 diabetes mellitus without complications (CMS/HCC V24, CMS/HCC V28); Essential (primary) hypertension; Chronic kidney disease, unspecified Social History Tobacco Use Types Packs/Day Years [...] Procedure Name Priority Date/Time Associated Diagnosis Comments VITAMIN D 25 HYDROXY Routine 05/01/2024 7:45 AM EDT Type 2 diabetes mellitus without complications (CMS/HCC) Essential (primary) hypertension Chronic kidney disease, unspecified SEDIMENTATION RATE Routine 05/01/2024 7: 45 AM EDT Type 2 diabetes mellitus without complications (CMS/HCC) Essential (primary) hypertension Chronic kidney disease, unspecified COMPLETE BLOOD COUNT Routine 05/01/2024 7:45 AM EDT Type 2 diabetes mellitus without complications (CMS/HCC) Essential (primary) hypertension Chronic kidney disease, unspecified C-REACTIVE PROTEIN Routine 05/01/2024 7: 45 AM EDT Type 2 diabetes mellitus without complications (CMS/HCC) Essential (primary) hypertension Chronic kidney disease, unspecified THYROID STIMULATING HORMONE Routine 05/01/2024 7:45 AM EDT Type 2 diabetes mellitus without complications (CMS/HCC) Essential (primary) hypertension Chronic kidney disease, unspecified THYROXINE FREE Routine 05/01/2024 7:45 AM EDT Type 2 diabetes mellitus without complications (CMS/HCC) Essential (primary) hypertension Chronic kidney disease, unspecified CALCIUM, IONIZED Routine 05/01/2024 7:45 AM EDT Type 2 diabetes mellitus without complications (CMS/HCC) Essential (primary) hypertension Chronic kidney disease, unspecified ALBUMIN Routine 05/01/2024 7:45 AM EDT Type 2 diabetes mellitus without complications (CMS/HCC) Essential (primary) hypertension Chronic kidney disease, unspecified BASIC METABOLIC PANEL Routine 05/01/2024 7:45 AM EDT Type 2 diabetes mellitus without complications (CMS/HCC) Essential (primary) hypertension Chronic kidney disease, unspecified documented in this encounter Results * Thyroid stimulating hormone (05/01/2024 7:45 AM EDT) TSH 0.53 0.40 - 4.00 mcIU/mL LAB CHEMISTRY METHOD 05/01/2024 12:22 PM EDT [facility] ([facility]) [facility] Blood Venous blood specimen / Unknown Venipuncture / Unknown 05/01/2024 7:45 AM EDT 05/01/2024 10:47 AM EDT us Gilson Davidson MD LAB BLOOD ORDERABLES Final Resul t [facility] [address] [place] [address], [place] [phone] * Thyroxine free (05/01/2024 7:45 AM EDT) Free T4 1.19 0.70 - 1.80 ng/dL LAB CHEMISTRY METHOD 05/01/2024 12:22 PM EDT [facility] Blood Venous blood specimen / Unknown Venipuncture / Unknown 05/01/2024 7:45 AM EDT 05/01/2024 10:47 AM EDT Gilson Davidson MD LAB BLOOD ORDERABLES Final Resul t Performing Organization Address [facility] Co de Phone Number [facility] [address] [place] [address], [place] [phone] * Vitamin D 25 hydroxy (05/01/2024 7:45 AM EDT) Pathologist [facility] Vit D, 25-Hydroxy 37.4 30.0 - 80.0 ng/mL LAB CHEMISTRY METHOD 05/01/2024 12:22 PM EDT [facility] Blood Venous blood specimen / Unknown Venipuncture / Unknown 05/01/2024 7:45 AM EDT 05/01/2024 10:47 AM EDT us Gilson Davidson MD LAB BLOOD ORDERABLES Final Resul t Performing Organization Address City/[facility]/ZIP Co de Phone Number [facility] [address] [place] [address], [place] [phone] * Calcium, ionized (05/01/2024 7:45 AM EDT) Calcium Ionized 5.0 4.6 - 5.4 mg/dL 05/03/2024 1:34 PM EDT [facility] Comment: Test performed at [facility], [address] , [place], [place] ??[address] ? [phone] Catalina Caldwell MD, PhD - Multi Purpose Machine [employer] Blood Venous blood specimen / Unknown Venipuncture / Unknown 05/01/2024 7:45 AM EDT 05/01/2024 10:47 AM EDT Gilson Davidson MD LAB BLOOD ORDERABLES Final Resul t [facility] [address] [place] [address] * Albumin (05/01/2024 7:45 AM EDT) [facility] Albumin 3.4 3.2 - 5.0 g/dL LAB CHEMISTRY METHOD 05/01/2024 11:56 AM EDT [facility] Blood Venous blood specimen / Unknown Venipuncture / Unknown 05/01/2024 7:45 AM EDT 05/01/2024 10:47 AM EDT Gilson Davidson MD LAB BLOOD ORDERABLES Final Resul t Performing Organization Address [facility] de Phone Number [facility] [address] [place] [address], [place] [phone] * (ABNORMAL) Basic metabolic panel (05/01/2024 7:45 AM EDT) Pathologist [facility] Sodium 139 133 - 145 mmol/L LAB CHEMISTRY METHOD 05/01/2024 11:56 AM EDT [facility] Potassium 4.6 3.5 - 5.5 mmol/L LAB CHEMISTRY METHOD 05/01/2024 11:56 AM EDT [facility] Chloride 105 96 - 110 mmol/L LAB CHEMISTRY METHOD 05/01/2024 11:56 AM EDT [facility] CO2 25 21 - 32 mmol/L LAB CHEMISTRY METHOD 05/01/2024 11:56 AM EDT [facility] Anion Gap 9 3 - 11 LAB CHEMISTRY METHOD 05/01/2024 11:56 AM EDT [facility] Glucose 80 70 - 100 mg/dL LAB CHEMISTRY METHOD 05/01/2024 11:56 AM EDT [facility] BUN 24 5 - 25 mg/dL LAB CHEMISTRY METHOD 05/01/2024 11:56 AM [facility] Creatinine 1.41(H) 0.50 - 1.10 mg/dL LAB CHEMISTRY METHOD 05/01/2024 11:56 AM EDT [facility] eGFR 42(L) >=60 mL/min/1. 73m2 LAB CHEMISTRY METHOD 05/01/2024 11:56 AM T [facility] Comment:Calculation based on the??Chronic Kidney Disease Epidemiology Collaboration (CKD-EPI) equation refit??without adjustment for race. BUN/Creatinine Ratio 17.0 LAB CHEMISTRY METHOD 05/01/[facility]24 [facility] Calcium 9.4 8.5 - 10.5 mg/dL LAB CHEMISTRY METHOD 05/01/2024 11:56 AM [facility] Blood Venous blood specimen / Unknown Venipuncture / Unknown 05/01/2024 7:45 AM EDT 05/01/2024 10:47 AM EDT us Gilson Davidson MD LAB BLOOD ORDERABLES Final Resul t [facility] [address] [place] [address], * (ABNORMAL) Complete blood count (05/01/2024 7:45 AM EDT) WBC 7.5 4.8 - 10.8 K/mcL LAB HEMETOLOGY METHOD 05/01/2024 11:19 AM EDT [facility] RBC 4.40 3.80 - 4.80 M/mcL LAB HEMETOLOGY METHOD 05/01/2024 11:19 AM [facility] Hemoglobin 12.1 11.5 - 16.0 g/dL LAB HEMETOLOGY METHOD 05/01/2024 11:19 AM [facility] Hematocrit 38.8 35.0 - 47.0 % LAB HEMETOLOGY METHOD 05/01/2024 11:19 AM [facility] MCV 87.8 79.0 - 98.0 FL LAB HEMETOLOGY METHOD 05/01/2024 11:19 AM [facility] MCH 27.4 27.0 - 32.0 pcg LAB HEMETOLOGY METHOD 05/01/2024 11:19 AM [facility] MCHC 31.2(L) 32.0 - 37.0 g/dL LAB HEMETOLOGY METHOD 05/01/2024 11:19 AM [facility] RDW 15.9(H) 11.0 - 15.0 % LAB HEMETOLOGY METHOD 05/01/2024 11:19 AM [facility] Platelets 386 130 - 400 K/mcL LAB HEMETOLOGY METHOD 05/01/2024 11:19 AM [facility] MPV 10.4 7.0 - 11.0 FL LAB HEMETOLOGY METHOD 05/01/2024 11:19 AM [facility] NRBC 0.0 <1.0 % LAB HEMETOLOGY METHOD 05/01/2024 11:19 AM [facility] NRBC Absolute 0.00 <0.10 K/mcL LAB HEMETOLOGY METHOD 05/01/2024 11:19 AM [facility] Blood Venous blood specimen / Unknown Venipuncture / Unknown 05/01/2024 7:45 AM EDT 05/01/2024 10:47 AM EDT us Gilson Davidson MD LAB BLOOD ORDERABLES Final Resul t Performing Organization Address [facility] Co de Phone Number [facility] [address] [place] [address], * (ABNORMAL) Sedimentation rate (05/01/2024 7:45 AM EDT) Sed Rate 91(H) 0 - 30 mm/hr LAB HEMETOLOGY METHOD 05/01/2024 1:04 PM EDT [facility] Blood Venous blood specimen / Unknown Venipuncture / Unknown 05/01/2024 7:45 AM EDT 05/01/2024 10:47 AM EDT Gilson Davidson MD LAB BLOOD ORDERABLES Final Resul t Performing Organization Address [facility] Co de Phone Number [facility] [address] [place] [address], [place] [phone] * C-reactive protein (05/01/2024 7:45 AM EDT) C-Reactive Protein 0.38 <=0.50 mg/dL LAB CHEMISTRY METHOD 05/01/2024 11:56 AM EDT [facility] Blood Venous blood specimen / Unknown Venipuncture / Unknown 05/01/2024 7:45 AM EDT 05/01/2024 10:47 AM EDT Gilson Davidson MD LAB BLOOD ORDERABLES Final Resul t Performing Organization Address [facility] Co de Phone Number [facility] [address] [place] [address], [place] [phone] documented in this encounter Visit Diagnoses Diagnosis Type 2 diabetes mellitus without complications (CMS/HCC V24, CMS/HCC V28) Essential (primary) hypertension Unspecified essential hypertension Chronic kidney disease, unspecified documented in this encounter Care Teams Mobility Engineer Relationship Specialty Start Date End Date Kristin Bellamy MD [address] PCP - General Internal Medicine 11/29/19 documented as of this encounter
--- OUTSIDE RECORDS SUMMARY | 2024-05-30 12:46 | XMS_ITS ---
Author Organization [facility] Address [address] [place] [address] Care Team Providers Care Broadcast Supervisor Name Role Phone Kristin Bellamy Primary Care Provider Unavailab Neri Barragan Unavailable [phone] Encounters Encounter [facility] Date [facility] [address] [facility] Neri Tinoco Plan Of Treatment No Information Progress Notes * Olga KATDOB:1960 (63 yo F)Acc No.[id number]:11/30/2023 Progress Note Patient:?Jaden KATradhika Provider:?Neri Tinoco DPM :1960???Age:63 Y???Sex:Female D ate:11/30/2023 Address:[place] Pcp:Kristin Bellamy Subjective: * Chief Complaints: * ??? * Medical History:? Objective: * Vitals:? Assessment: Plan: * Treatment: * Images: * The named appointment provid er may or may not be the originator of this progress note, and it is not deemed complete until electronically signed by the appointment provider. Sign off status: Pending * Provider:?Neri Tinoco DPM Date:?2023 Generated for Vicentei salvador/Fasethg/eTransmitting on:?05/30/2024 12:45 PM EDT
--- OUTSIDE RECORDS SUMMARY | 2024-05-30 12:47 | XMS_ITS | Clinical Summary ---
Author Organization [address] Address [address] [place] [address] Phone Care Team Providers Care Continuity Tester Name Role Phone Kristin Bellamy MD Primary Care Provider [phone] Encounters Date Type Department Care Team Description 05/28/2024 Lab Requisition [facility] [address] [place] [phone] Gilson Davidson MD Type 2 diabetes mellitus without complications ([facility] V24, [facility] V28); Essential (primary) hypertension 05/21/2024 Lab Requisition [facility] [address] [place] [phone] Gilson Davidson MD Type 2 diabetes mellitus without complications ([facility] V24, [facility] V28); Essential (primary) hypertension 05/14/2024 Lab Requisition [facility] [address] [place] [phone] Gilson Davidson MD Type 2 diabetes mellitus without complications ([facility] V24, [facility] V28); Essential (primary) hypertension 05/07/2024 Lab Requisition [facility] [address] [place] [phone] Gilson Davidson MD Type 2 diabetes mellitus without complications ([facility] V24, [facility] V28); Essential (primary) hypertension 04/30/2024 Lab Requisition [facility] [address] [place] [phone] Gilson Davidson MD Type 2 diabetes mellitus without complications ([facility] V24, [facility] V28); Essential (primary) hypertension; Chronic kidney disease, unspecified 04/23/2024 Lab Requisition [facility] [address] [place] [phone] Gilson Davidson MD Type 2 diabetes mellitus without complications ([facility] V24, [facility] V28); Essential (primary) hypertension 04/16/2024 Lab Requisition [facility] [address] [place] [phone] Gilson Davidson MD Essential (primary) hypertension; Type 2 diabetes mellitus without complications ([facility] V24, [facility] V28) 04/09/2024 Lab Requisition [facility] [address] [place] [phone] Gilson Davidson MD Essential (primary) hypertension; Type 2 diabetes mellitus without complications ([facility]24, [facility] V28) 04/09/2024 Lab Requisition [facility] [address] [place] [phone] Gilson Davidson MD Essential (primary) hypertension; Hypothyroidism, unspecified; Type 2 diabetes mellitus without complications ([facility] V24, [facility] V28); Dependence on renal dialysis ([facility] V24) 04/02/2024 Lab Requisition [facility] [address] [place] [phone] Gilson Davidson MD Essential (primary) hypertension; Type 2 diabetes mellitus without complications ([facility] V24, [facility] V28) 03/26/2024 Lab Requisition [facility] [address] [place] [phone] Gilson Davidson MD Essential (primary) hypertension; Type 2 diabetes mellitus without complications ([facility] V24, [facility] V28) 03/19/2024 Lab Requisition [facility] [address] [place] [phone] Gilson Davidson MD Type 2 diabetes mellitus without complications ([facility], [facility] V28); Essential (primary) hypertension 03/12/2024 Lab Requisition [facility] [address] [place] [phone] Gilson Davidson MD Type 2 diabetes mellitus without complications ([facility], [facility] V28); Essential (primary) hypertension 03/05/2024 Lab Requisition [facility] [address] [place] [phone] Gilson Davidson MD Type 2 diabetes mellitus without complications ([facility], [facility] V28); Essential (primary) hypertension from Last 3 Months Surgical History Surgery Date Site/Laterality Comments OTHER SURGICAL HISTORY 2015 PROCEDURE: IA VITRECTOMY MCHNL PARS PLNA FOCAL ENDOLASER PC FOOT SURGERY 2015 PROCEDURE: HISTORICAL FOOT SURGERY CATARACT EXTRACTION 2015 Left PROCEDURE: HISTORICAL CATARACT REMOVAL Medical History Medical History Date Comments Anemia DX:Anemia Hyperlipidemia DX:Hyperlipidemi a Essential hypertension DX:Essent ial hypertension Neuropathy DX:Neuropathy Presence of other orthopedic joint implants DX:Presence of other orthope dic joint implants Retinopathy DX:Retinopathy Charcot foot due to diabetes mellitus ([facility], [facility] V28) DX:Charcot foot due to diab etes mellitus (HCC) Type 2 diabetes mellitus wit h eye manifestations ([facility] V24, [facility] V28) 07/06/2020 DX:Type 2 diabetes mellitus with eye manifestations (HCC) Diabetes mellitus type 2 wit h neurological manifestations ([facility] V24, [facility] V28) 07/06/2020 DX:Diabetes mellitus type 2 with neurological manifestations (HCC) Diabetes mellitus with catar act ([facility] V24, [facility] V28) 07/06/2020 DX:Diabetes mellitus with c ataract ([facility]); COMMENT: Left eye Asthma 07/06/2020 DX:Asthma DM (diabetes mellitus), type 2 with peripheral vascular complications ([facility] V[facility], [facility] V28) 07/06/2020 DX:DM (diabetes mellitus), type 2 with peripheral vascular complications (HCC) Gout 07/06/2020 DX:Gout Diabetic ulcer of right foot (CMS/HCC V24, CMS/HCC V28) 07/06/2020 DX:Diabetic ulcer of right f oot ([facility]); COMMENT: Right plantar foot - [facility] History of cataract 07/06/2020 [...] risk series) 04/16/2020 03/19/2020, 02/20/2020 RSV Immunization Adult Patients (1 - Risk 60-74 years 1-dose series) 2021 Cholesterol Screening (Lipid Panel) 01/05/2024 Colorectal Cancer Screening: Colonoscopy 01/05/2024 Depression Screening 01/05/2024 Diabetes: Annual Urine Albumin-Creatinine Ratio (uACR) 01/05/2024 HIV Screening 01/05/2024 Hepatitis C Screening 01/05/2024 Social Influencers of Health Screening 01/05/2024 Diabetes: Blood Sugar Control Test (HGBA1C) 10/07/2024 04/09/2024, 01/05/2024 Influenza Vaccine (Season Ended) 2024 11/28/2019, 10/26/2018, 11/27/2017 Diabetes: Annual GFR (Glomerular Filtration Rate) 05/29/2025 05/29/2024, 05/22/2024, 05/15/2024, Additional history exists 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/CHF/CAD Annual BMP Blood Test 05/29/2025 05/29/2024, 05/22/2024, 05/15/2024, Additional history exists HIB Vaccines Aged Out [...] age to complete this topic Meningococcal B Vaccine Aged Out No l onger eligible based on patient's age to complete this topic RSV Immunization Patients Under 20 months Aged Out No longer eligible based on patient's age to complete this topic Varicella Vaccines Aged Out No longer eligible based on patient's age to complete this topic Procedures Procedure Name Priority Date/Time Associated Diagnosis Comments BASIC METABOLIC PANEL Routine 05/29/2024 5:41 AM EDT Type 2 diabetes mellitus without complications (CMS/HCC V24, CMS/HCC V28) Essential (primary) hypertension COMPLETE BLOOD COUNT Routine 05/29/2024 5:41 AM EDT Type 2 diabetes mellitus without complications (CMS/HCC V24, CMS/HCC V28) Essential (primary) hypertension SEDIMENTATION RATE Routine 05/29/2024 5: 41 AM EDT Type 2 diabetes mellitus without complications (CMS/HCC V24, CMS/HCC V28) Essential (primary) hypertension C-REACTIVE PROTEIN Routine 05/29/2024 5: 41 AM EDT Type 2 diabetes mellitus without complications (CMS/HCC V24, CMS/HCC V28) Essential (primary) hypertension BASIC METABOLIC PANEL Routine 05/22/2024 5:30 AM EDT Type 2 diabetes mellitus without complications Essential (primary) hypertension COMPLETE BLOOD COUNT Routine 05/22/2024 5:30 AM EDT Type 2 diabetes mellitus without complications Essential (primary) hypertension SEDIMENTATION RATE Routine 05/22/2024 5: 30 AM EDT Type 2 diabetes mellitus without complications Essential (primary) hypertension C-REACTIVE PROTEIN Routine 05/22/2024 5: 30 AM EDT Type 2 diabetes mellitus without complications Essential (primary) hypertension BASIC METABOLIC PANEL Routine 05/15/2024 6:57 AM EDT Type 2 diabetes mellitus without complications Essential (primary) hypertension COMPLETE BLOOD COUNT Routine 05/15/2024 6:57 AM EDT Type 2 diabetes mellitus without complications Essential (primary) hypertension SEDIMENTATION RATE Routine 05/15/2024 6: 57 AM EDT Type 2 diabetes mellitus without complications Essential (primary) hypertension C-REACTIVE PROTEIN Routine 05/15/2024 6: 57 AM EDT Type 2 diabetes mellitus without complications Essential (primary) hypertension BASIC METABOLIC PANEL Routine 05/08/2024 7:53 AM EDT Type 2 diabetes mellitus without complications Essential (primary) hypertension COMPLETE BLOOD COUNT Routine 05/08/2024 7:53 AM EDT Type 2 diabetes mellitus without complications Essential (primary) hypertension SEDIMENTATION RATE Routine 05/08/2024 7: 53 AM EDT Type 2 diabetes mellitus without complications Essential (primary) hypertension C-REACTIVE PROTEIN Routine 05/08/2024 7: 53 AM EDT Type 2 diabetes mellitus without complications Essential (primary) hypertension THYROID STIMULATING HORMONE Routine 05/01/2024 7:45 AM EDT Type 2 diabetes mellitus without complications (CMS/HCC) Essential (primary) hypertension Chronic kidney disease, unspecified THYROXINE FREE Routine 05/01/2024 7:45 AM EDT Type 2 diabetes mellitus without complications (CMS/HCC) Essential (primary) hypertension Chronic kidney disease, unspecified VITAMIN D 25 HYDROXY Routine 05/01/2024 7:45 [...] kidney disease, unspecified BASIC METABOLIC PANEL Routine 04/24/2024 5:44 AM EDT Type 2 diabetes mellitus without complications (CMS/HCC) Essential (primary) hypertension COMPLETE BLOOD COUNT Routine 04/24/2024 5:44 AM EDT Type 2 diabetes mellitus without complications (CMS/HCC) Essential (primary) hypertension SEDIMENTATION RATE Routine 04/24/2024 5: 44 AM EDT Type 2 diabetes mellitus without complications (CMS/HCC) Essential (primary) hypertension C-REACTIVE PROTEIN Routine 04/24/2024 5: 44 AM EDT Type 2 diabetes mellitus without complications (CMS/HCC) Essential (primary) hypertension SEDIMENTATION RATE Routine 04/17/2024 6: 14 AM [...] 3 Months Results * (ABNORMAL) Sedimentation rate (05/29/2024 5:41 AM EDT) Only the most recent of12 resultswithin the time period is included. Sed Rate 61(H) 0 - 30 mm/hr LAB HEMETOLOGY METHOD 05/29/2024 11:36 AM EDT [facility] Blood Venous blood specimen / Unknown Venipuncture / Unknown 05/29/2024 5:41 AM EDT 05/29/2024 11:16 AM EDT us Gilson Davidson MD LAB BLOOD ORDERABLES Final Resul t [facility] [address] [place] [address], * (ABNORMAL) Complete blood count (05/29/2024 5:41 AM EDT) Only the most recent of13 resultswithin the time period is included. WBC 6.5 4.8 - 10.8 K/mcL LAB HEMETOLOGY METHOD 05/29/2024 11:30 AM EDT [facility] RBC 4.20 3.80 - 4.80 M/mcL LAB HEMETOLOGY METHOD 05/29/2024 11:30 AM EDT [facility] Hemoglobin 11.6 11.5 - 16.0 g/dL LAB HEMETOLOGY METHOD 05/29/2024 11:[address] [facility] Hematocrit 36.1 35.0 - 47.0 % LAB HEMETOLOGY METHOD 05/29/2024 11:[address] [facility] MCV 87.0 79.0 - 98.0 FL LAB HEMETOLOGY METHOD 05/29/2024 11:30 AM EDT [facility] MCH 28.0 27.0 - 32.0 pcg LAB HEMETOLOGY METHOD 05/29/2024 11:[address] [facility] MCHC 32.1 32.0 - 37.0 g/dL LAB HEMETOLOGY METHOD 05/29/2024 11:[address] [facility] RDW 15.5(H) 11.0 - 15.0 % LAB HEMETOLOGY METHOD 05/29/2024 11:[address] [facility] Platelets 296 130 - 400 K/mcL LAB HEMETOLOGY METHOD 05/29/2024 11:30 AM EDT [facility] MPV 10.4 7.0 - 11.0 FL LAB HEMETOLOGY METHOD 05/29/2024 11:30 AM EDT [facility] NRBC 0.0 <1.0 % LAB HEMETOLOGY METHOD 05/29/2024 11:30 AM EDT [facility] NRBC Absolute 0.00 <0.10 K/mcL LAB HEMETOLOGY METHOD 05/29/2024 11:30 AM EDT [facility] Blood Venous blood specimen / Unknown Venipuncture / Unknown 05/29/2024 5:41 AM EDT 05/29/2024 11:16 AM EDT us Gilson Davidson MD LAB BLOOD ORDERABLES Final Resul t Performing Organization Address City/[facility]/ZIP Co de Phone Number [facility] [address] [place] [address], [place] [phone] * C-reactive protein (05/29/2024 5:41 AM EDT) Only the most recent of12 resultswithin the time period is included. C-Reactive Protein <0.29 <=0.50 mg/dL LAB CHEMISTRY METHOD 05/29/2024 12:42 PM EDT [facility] Blood Venous blood specimen / Unknown Venipuncture / Unknown 05/29/2024 5:41 AM EDT 05/29/2024 11:16 AM EDT us Gilson Davidson MD LAB BLOOD ORDERABLES Final Resul t [facility] [address] [place] [address], [place] [phone] * (ABNORMAL) Basic metabolic panel (05/29/2024 5:41 AM EDT) Only the most recent of13 resultswithin the time period is included. Sodium 138 133 - 145 mmol/L LAB CHEMISTRY METHOD 05/29/2024 12:[address] [facility] Potassium 4.3 3.5 - 5.5 mmol/L LAB CHEMISTRY METHOD 05/29/2024 12:[address] [facility] Chloride 104 96 - 110 mmol/L LAB CHEMISTRY METHOD 05/29/2024 12:[address] [facility] CO2 27 21 - 32 mmol/L LAB CHEMISTRY METHOD 05/29/2024 12:[address] [facility] Anion Gap 7 3 - 11 LAB CHEMISTRY METHOD 05/29/2024 12:[address] [facility] Glucose 69(L) 70 - 100 mg/dL LAB CHEMISTRY METHOD 05/29/2024 12:[address] [facility] BUN 32(H) 5 - 25 mg/dL LAB CHEMISTRY METHOD 05/29/2024 12:[address] [facility] Creatinine 1.35(H) 0.50 - 1.10 mg/dL LAB CHEMISTRY METHOD 05/29/2024 12:[address] [facility] eGFR 45(L) >=60 mL/min/1. 73m2 LAB CHEMISTRY METHOD 05/29/2024 12:[address] [facility] Comment:Calculation based on the??Chronic Kidney Disease Epidemiology Collaboration (CKD-EPI) equation refit??without adjustment for race. BUN/Creatinine Ratio 23.7 LAB CHEMISTRY METHOD 05/29/2024 12:[address] [facility] Calcium 9.0 8.5 - 10.5 mg/dL LAB CHEMISTRY METHOD 05/29/2024 12:[address] [facility] Blood Venous blood specimen / Unknown Venipuncture / Unknown 05/29/2024 5:41 AM EDT 05/29/2024 11:16 AM EDT Gilson Davidson MD LAB BLOOD ORDERABLES Final Resul t Performing Organization Address City/[facility]/ZIP Co de Phone Number [facility] [address] [place] [address], [place] [phone] * Vitamin D 25 hydroxy (05/01/2024 7:45 AM EDT) Vit D, 25-Hydroxy 37.4 30.0 - 80.0 ng/mL LAB CHEMISTRY METHOD 05/01/2024 12:22 PM EDT [facility] Blood Venous blood specimen / Unknown Venipuncture / Unknown 05/01/2024 7:45 AM EDT 05/01/2024 10:47 AM EDT Gilson Davidson MD LAB BLOOD ORDERABLES Final Resul t Performing Organization Address [facility] de Phone Number [facility] [address] [place] [address], [place] [phone] * Thyroid stimulating hormone (05/01/2024 7:45 AM EDT) [facility] TSH 0.53 0.40 - 4.00 mcIU/mL LAB CHEMISTRY METHOD 05/01/2024 12:22 PM EDT [facility] Blood Venous blood specimen / Unknown Venipuncture / Unknown 05/01/2024 7:45 AM EDT 05/01/2024 10:47 AM EDT us Gilson Davidson MD LAB BLOOD ORDERABLES Final Resul t Performing Organization Address [facility] Co de Phone Number [facility] [address] [place] [address], [place] [phone] * Thyroxine free (05/01/2024 7:45 AM EDT) Free T4 1.19 0.70 - 1.80 ng/dL LAB CHEMISTRY METHOD 05/01/2024 12:22 PM EDT [facility] Blood Venous blood specimen / Unknown Venipuncture / Unknown 05/01/2024 7:45 AM EDT 05/01/2024 10:47 AM EDT us Gilson Davidson MD LAB BLOOD ORDERABLES Final Resul t [facility] [address] [place] [address], [place] [phone] * Calcium, ionized (05/01/2024 7:45 AM EDT) Calcium Ionized 5.0 4.6 - 5.4 mg/dL 05/03/2024 1:34 PM EDT [facility] Comment: Test performed at [facility], [address], [place], [place] ??[address] ? [phone] Catalina Caldwell MD, PhD - Seafood Clerk Blood Venous blood specimen / Unknown Venipuncture / Unknown 05/01/2024 7:45 AM EDT 05/01/2024 10:47 AM EDT us Gilson Davidson MD LAB BLOOD ORDERABLES Final Resul t Performing Organization Address City/[facility]/ZIP Co de Phone Number [facility] [address] [place] [address] * Albumin (05/01/2024 7:45 AM EDT) Albumin 3.4 3.2 - 5.0 g/dL LAB CHEMISTRY METHOD 05/01/2024 11:56 AM EDT [facility] Blood Venous blood specimen / Unknown Venipuncture / Unknown 05/01/2024 7:45 AM EDT 05/01/2024 10:47 AM EDT us Gilson Davidson MD LAB BLOOD ORDERABLES Final Resul t Performing Organization Address [facility] Co de Phone Number [facility] [address] [place] [address], [place] [phone] * Thyroid stimulating hormone with reflex to free t4 and free t3 (04/09/2024 6:31 AM EST) TSH 1.29 0.40 - 4.00 mcIU/mL LAB CHEMISTRY METHOD 04/09/2024 11:36 AM EST [facility] Blood Venous blood specimen / Unknown Venipuncture / Unknown 04/09/2024 6:31 AM EST 04/09/2024 9:10 AM EST Gilson Davidson MD LAB BLOOD ORDERABLES Final Resul t Performing Organization Address [facility] de Phone Number [facility] [address] [place] [address], [place] [phone] * (ABNORMAL) Hemoglobin A1c (04/09/2024 6:31 AM EST) Hemoglobin A1C 7.8(H) <6.5 % LAB CHEMISTRY METHOD 04/09/2024 1:46 PM EST [facility] Mean Bld Glu Estim. 177 mg/dL LAB CHEMISTRY METHOD 04/09/2024 1:46 PM EST [facility] Blood Venous blood specimen / Unknown Venipuncture / Unknown 04/09/2024 6:31 AM EST 04/09/2024 9:10 AM EST Gilson Davidson MD LAB BLOOD ORDERABLES Final Resul t Performing Organization Address [facility] Co de Phone Number [facility] [address] [place] [address], [place] [phone] from Last 3 Months Insurance [facility] Advance Directives Documents on File Type Date Recorded Patient Geriatric Nurse Practitioner Expl [facility] Care Decision (hx) 10/13/2014 AD VILLANUEVA DIRECTIVE Care Teams Continuity Tester Relationship Specialty Start Date End Date Kristin Bellamy MD [address] [facility] [address] [place], [place] PCP - General Internal Medicine 11/29/19
--- OUTSIDE RECORDS SUMMARY | 2024-05-30 12:47 | XMS_ITS | Encounter Summary ---
Author Organization [facility] Address [address] [place] [address] Care Team Providers Care Sixth Grade Teacher Name Role Phone Kristin Bellamy MD Primary Care Provider [phone] Encounter Details Date Type Department Care Team (Late st Contact Info) Description 03/19/2024 Lab Requisition [facility] - Main Lab 299 [facility] [place] [address] Gilson Davidson MD [address] [place] [phone] Type 2 diabetes mellitus without complications [...] Sedimentation rate (03/20/2024 6:04 AM EST) Pathologist [facility] Sed Rate 53(H) 0 - 30 mm/hr LAB HEMETOLOGY METHOD 03/20/2024 11:21 AM EST [facility] Blood Venous blood specimen / Unknown Venipuncture / Unknown 03/20/2024 6:04 AM EST 03/20/2024 10:37 AM EST Gilson Davidson MD LAB BLOOD ORDERABLES Final Resul t Performing Organization Address [facility]/ZIP Co de Phone Number [facility] [address] [place] [address], [place] [phone] * (ABNORMAL) C-reactive protein (03/20/2024 6:04 AM EST) [facility] C-Reactive Protein 1.78(H) <=0.50 mg/dL LAB CHEMISTRY METHOD 03/20/2024 12:22 PM EST [facility] Blood Venous blood specimen / Unknown Venipuncture / Unknown 03/20/2024 6:04 AM EST 03/20/2024 10:37 AM EST Gilson Davidson MD LAB BLOOD ORDERABLES Final Resul t [facility] [address] [place] [address], * (ABNORMAL) Basic metabolic panel (03/20/2024 6:04 AM EST) [facility] Sodium 137 133 - 145 mmol/L LAB CHEMISTRY METHOD 03/20/2024 12:22 PM [facility] Potassium 4.8 3.5 - 5.5 mmol/L LAB CHEMISTRY METHOD 03/20/2024 12:22 PM [facility] Comment:Hemolysis present Chloride 105 96 - 110 mmol/L LAB CHEMISTRY METHOD 03/20/2024 12:22 PM [facility] CO2 26 21 - 32 mmol/L LAB CHEMISTRY METHOD 03/20/2024 12:22 PM [facility] Anion Gap 6 3 - 11 LAB CHEMISTRY METHOD 03/20/2024 12:22 PM [facility] Glucose 104(H) 70 - 100 mg/dL LAB CHEMISTRY METHOD 03/20/2024 12:22 PM [facility] BUN 27(H) 5 - 25 mg/dL LAB CHEMISTRY METHOD 03/20/2024 12:22 PM [facility] Creatinine 1.22(H) 0.50 - 1.10 mg/dL LAB CHEMISTRY METHOD 03/20/2024 12:22 PM [facility] eGFR 50(L) >=60 mL/min/1. 73m2 LAB CHEMISTRY METHOD 03/20/2024 12:22 PM [facility] Comment:Calculation based on the??Chronic Kidney Disease Epidemiology Collaboration (CKD-EPI) equation refit??without adjustment for race. BUN/Creatinine Ratio 22.1 LAB CHEMISTRY METHOD 03/20/2024 12:22 PM [facility] Calcium 9.5 8.5 - 10.5 mg/dL LAB CHEMISTRY METHOD 03/20/2024 12:22 PM [facility] Blood Venous blood specimen / Unknown Venipuncture / Unknown 03/20/2024 6:04 AM EST 03/20/2024 10:37 AM EST us Gilson Davidson MD LAB BLOOD ORDERABLES Final Resul t [facility] [address] [place] [address], [place] [phone] * (ABNORMAL) Complete blood count (03/20/2024 6:04 AM EST) [facility] WBC 9.3 4.8 - 10.8 K/mcL LAB HEMETOLOGY METHOD 03/20/2024 11:05 AM [facility] RBC 4.50 3.80 - 4.80 M/mcL LAB HEMETOLOGY METHOD 03/20/2024 11:05 AM [facility] Hemoglobin 12.1 11.5 - 16.0 g/dL LAB HEMETOLOGY METHOD 03/20/2024 11:05 AM [facility] Hematocrit 38.6 35.0 - 47.0 % LAB HEMETOLOGY METHOD 03/20/2024 11:05 AM [facility] MCV 86.5 79.0 - 98.0 FL LAB HEMETOLOGY METHOD 03/20/2024 11:05 AM [facility] MCH 27.1 27.0 - 32.0 pcg LAB HEMETOLOGY METHOD 03/20/2024 11:05 AM [facility] MCHC 31.3(L) 32.0 - 37.0 g/dL LAB HEMETOLOGY METHOD 03/20/2024 11:05 AM [facility] RDW 13.9 11.0 - 15.0 % LAB HEMETOLOGY METHOD 03/20/2024 11:05 AM [facility] Platelets 453(H) 130 - 400 K/mcL LAB HEMETOLOGY METHOD 03/20/2024 11:05 AM [facility] MPV 10.4 7.0 - 11.0 FL LAB HEMETOLOGY METHOD 03/20/2024 11:05 AM [facility] NRBC 0.0 <1.0 % LAB HEMETOLOGY METHOD 03/20/2024 11:05 AM [facility] NRBC Absolute 0.00 <0.10 K/mcL LAB HEMETOLOGY METHOD 03/20/2024 11:05 AM EST [facility] Blood Venous blood specimen / Unknown Venipuncture / Unknown 03/20/2024 6:04 AM EST 03/20/2024 10:37 AM EST us Gilson Davidson MD LAB BLOOD ORDERABLES Final Resul t [facility] [address] [place] [address], documented in this encounter Visit Diagnoses Diagnosis Type 2 diabetes mellitus without complications (CMS/HCC V24, CMS/HCC V28) Essential (primary) hypertension Unspecified essential hypertension documented in this encounter Care Teams Sixth Grade Teacher Relationship Specialty Start Date End Date Kristin Bellamy MD [address] [facility] [address] [place], [place] PCP - General Internal Medicine 11/29/19 documented as of this encounter
--- OUTSIDE RECORDS SUMMARY | 2024-05-30 12:47 | XMS_ITS | Patient Health Record ---
Author Organization [facility] [place] Address [address] [facility] [place] [address] Care Team Providers Care Scrap Burner Name Role Phone Kristin Bellamy Primary Care Provider Unavailab Neri Barragan Unavailable [phone] Jarret Saucedo Unavailable [phone] Allergies Allergen (clinical drug ingredient) Drug/Non Drug [...] Referring Provider Last Name Mia Referred Organization [facility] Referred Provider Neri Tinoco Referred Address [address] [place] [address],[address],[place], [place],[address], Referred Provider Specialty Podiatry Referral Priority Routine [...] fat layer exposed (L97.512) Active confirmed Problem [id number] 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) Active confirmed Problem Non-pressure chronic ulcer of other part of right foot limited to breakdown of skin (L97.511) Active confirmed Problem Primary gout (04758488) Idiopathic gout, right ankle and foot (M10.071) Active confirmed Problem Polyneuropathy due to diabetes mellitus type I (275776988) Type 1 diabetes mellitus with diabetic polyneuropathy (E10.42) Active confirmed Problem 45021815 Charcot foot due to diabetes mellitus (E11.610) Active confirmed Vital Signs Height 5ft 6 in in 08/29/2023 Weight 205 lbs 08/29/2023 BMI 33.08 kg/m2 08/29/2023 Procedures Procedure Date Ordered Date Performed Result Body Sit e 69796-WKNYTBC SKIN/TISSUE 08/29/2023 N/A Encounters Encounter Location Date Provider Diagnosis [facility] [place] [address] [place] [phone] 08/29/2023 Jarret Saucedo Charcot foot due to diabetes mellitus E11.610 ; Tinea unguium B35.1 ; Type 1 diabetes mellitus with diabetic polyneuropathy E10.42 ; Pain in right toe(s) M79.674 ; Pain in left toe(s) M79.675 ; Ingrowing nail L60.0 and Non-pressure chronic ulcer of other part of right foot with fat layer exposed L97.512 [facility] [place] [address] [place] [address] 10/07/2023 Neri Tinoco [facility] [place] [address] [place] [address] 11/28/2023 Neri Tinoco Assessments Encounter Date Diagnosis (ICD Code) Assessment Notes Treatment Notes Treatment Clinical Notes Section Notes 08/29/2023 Tinea unguium (ICD-10 - B35.1) 08/29/2023 Charcot foot due to diabetes mellitus (ICD-10 - E11.610) 08/29/2023 Type 1 diabetes mellitus with diabetic polyneuropathy (ICD-10 - E10.42) 08/29/2023 Pain in right toe(s) (ICD-10 - M79.674) 08/29/2023 Pain in left toe(s) (ICD-10 - M79.675) 08/29/2023 Ingrowing nail (ICD-10 - L60.0) 08/29/2023 Non-pressure chronic ulcer of other part of right foot with fat layer exposed (ICD-10 - L97.512) Plan Of Treatment Pending Test Test Name Order Date X ray : Foot, right 3V 07/24/2017 X ray : Foot, right 3V 11/06/2018 X ray : Foot, right 3V 02/21/2020 28851-FNZTHKT NAIL, 6 OR MORE 12/25/2017 93761-NOAEBXA NAIL, 6 OR MORE 10/09/2017 99325-WBGXZOR NAIL, 6 OR MORE 07/24/2017 21652-NQHAPCL NAIL, 1-5 04/24/2017 97582-GVEILHX NAIL, 1-5 08/22/2016 68090-ROJPVON NAIL, 1-5 11/07/2016 13667-ONGNLVH NAIL, 1-5 01/30/2017 14834- Debride <25 sq cm 11/07/2016 02193- Debride <25 sq cm 08/04/2017 89991-XMWVLSN SKIN/TISSUE 08/04/2017 36262-CGENCHE SKIN/TISSUE 05/12/2020 01400-POFGCGV SKIN/TISSUE 08/04/2020 74959-ZTCGKVB SKIN/TISSUE 11/29/2019 07980-ZECTPMK SKIN/TISSUE 02/21/2020 45916-MNUHROM SKIN/TISSUE 11/06/2018 50711-OYHXCCL SKIN/TISSUE 10/23/2018 90338-UOTQBSC SKIN/TISSUE 02/01/2019 10389-CPSBQFR SKIN/TISSUE 12/22/2020 49597-GDUCNCF SKIN/TISSUE 05/13/2022 92601-FKBIOGE SKIN/TISSUE 08/29/2023 44488 I&D ABSCESS- SIMPLE,SINGLE 019 11231- I&D ABSCESS-COMPLICATED,MULTI 12/2017 01725-RYAQ SKIN LESIONS, OVER 4 10/10/19 18 80303-OJDC SKIN LESIONS, OVER 4 12/26/19 18 37315-FQOW SKIN LESIONS, OVER 4 03/19/19 19 22869-ONDC SKIN LESIONS, OVER 4 06/19/19 19 30669-SYWN SKIN LESIONS, OVER 4 06/10/19 17 79489-ZMMM SKIN LESIONS, 2 TO 4 12/02/19 16 97845-WEUZ SKIN LESIONS, 2 TO 4 02/23/19 17 29681-AJIP SKIN LESIONS, 2 TO 4 11/08/19 17 15487-DPXD SKIN LESIONS, 2 TO 4 08/23/19 17 48882-NDUY SKIN LESIONS, 2 TO 4 01/31/20 17 75903-WMMK SKIN LESIONS, 2 TO 4 08/30/19 19 71219-XFXM SKIN LESIONS, 2 TO 4 04/25/19 18 12215-RSSK SKIN LESIONS, 2 TO 4 07/25/19 18 36892-ABTK SKIN LESIONS, 2 TO 4 12/23/19 21 61602-YXEH SKIN LESIONS, 2 TO 4 03/16/19 22 59489-RDEJ SKIN LESIONS, 2 TO 4 04/09/19 20 79128-NCGF SKIN LESIONS, 2 TO 4 06/14/19 20 30606-OMCP SKIN LESIONS, 2 TO 4 08/30/19 20 72865-CRKR SKIN LESIONS, 2 TO 4 02/02/20 19 27844-PRVA SKIN LESIONS, 2 TO 4 02/20/19 21 55384-XAEO SKIN LESIONS, 2 TO 4 11/29/19 20 40752-FPHB SKIN LESIONS, 2 TO 4 08/05/19 21 80997-EAJL SKIN LESIONS, 2 TO 4 10/14/19 21 29447-OYHL SKIN LESIONS, 2 TO 4 05/13/19 21 76407-DBHC NAIL(S) 01/30/2017 39278-WCSE NAIL(S) 11/07/2016 47264-LTVD NAIL(S) 02/24/2016 67672-HULB NAIL(S) 12/02/2015 91900-ERBL NAIL(S) 06/09/2016 18150-JXCB NAIL(S) 08/22/2016 33827-OXKVMNUJ OF HEMATOMA/FLUID 019 Insurance Providers Payer Name Payer Address Payer Phone Subscriber Number Group Number Insured Name Patient Relationship to Insured Coverage Start Date Coverage End Date [facility] [address] [place] [address] [phone] [id number] Olga Kat Self - patient is [...] surgery, left 12/14/2020 Hospitalization History Reason Date(Month/Year) [facility] [place]16 [facility] 08/30/19 [facility] 08/04/19 [facility] hardware removal right foot 07/26/19 [facility] [place]19 [facility] [place] [place] 03/06- [facility] [place] foot 12/14/18 [facility] [place] infection 11/09/18- 9 [facility] [place] 09[facility]28-10/02/18 [facility] [place] [place] for Abcess on Right foot Dr. Perez did wound culture on foot 01/19 Abscess in right foot 07/04/2016 [facility] [place], felt dizzy and fell at home in h er bedroom 07/24/2023 [facility] [place], chest tightness 08/03/21 [facility] [place] 08/19/20-08/26/20 [facility] [place] [place] 11/28/19
--- OUTSIDE RECORDS SUMMARY | 2024-05-30 12:47 | XMS_ITS | Encounter Summary ---
Author Organization [facility] Address [address] [place] [address] Care Team Providers Care General Manager Food Name Role Phone Kristin Bellamy MD Primary Care Provider [phone] Encounter Details Date Type Department Care Team (Late st Contact Info) Description 03/05/[address] [facility] - Main Lab 299 [facility] [place] [address] Gilson Davidson MD [address] [place] [address] [address] [facility] [address] Type 2 diabetes mellitus without complications [...] Sedimentation rate (03/06/2024 7:07 AM EST) Pathologist [facility] Sed Rate 90(H) 0 - 30 mm/hr LAB HEMETOLOGY METHOD 03/06/2024 11:28 AM EST [facility] Blood Venous blood specimen / Unknown Venipuncture / Unknown 03/06/2024 7:07 AM EST 03/06/2024 11:18 AM EST Gilson Davidson MD LAB BLOOD ORDERABLES Final Resul t Performing Organization Address [facility]/ZIP Co de Phone Number [facility] [address] [place] [address], [place] [phone] * (ABNORMAL) C-reactive protein (03/06/2024 7:07 AM EST) [facility] C-Reactive Protein 1.86(H) <=0.50 mg/dL LAB CHEMISTRY METHOD 03/06/2024 2:12 PM EST [facility] Blood Venous blood specimen / Unknown Venipuncture / Unknown 03/06/2024 7:07 AM EST 03/06/2024 11:18 AM EST Gilson Davidson MD LAB BLOOD ORDERABLES Final Resul t [facility] [address] [place] [address], [place] [phone] * (ABNORMAL) Basic metabolic panel (03/06/2024 7:07 AM EST) [facility] Sodium 137 133 - 145 mmol/L LAB CHEMISTRY METHOD 03/06/2024 2:12 PM [facility] Potassium 4.8 3.5 - 5.5 mmol/L LAB CHEMISTRY METHOD 03/06/2024 2:12 PM [facility] Chloride 108 96 - 110 mmol/L LAB CHEMISTRY METHOD 03/06/2024 2:12 PM [facility] CO2 27 21 - 32 mmol/L LAB CHEMISTRY METHOD 03/06/2024 2:12 PM [facility] Anion Gap 2(L) 3 - 11 LAB CHEMISTRY METHOD 03/06/2024 2:12 PM [facility] Glucose 124(H) 70 - 100 mg/dL LAB CHEMISTRY METHOD 03/06/2024 2:12 PM [facility] BUN 30(H) 5 - 25 mg/dL LAB CHEMISTRY METHOD 03/06/2024 2:12 PM [facility] Creatinine 1.50(H) 0.50 - 1.10 mg/dL LAB CHEMISTRY METHOD 03/06/2024 2:12 PM [facility] eGFR 39(L) >=60 mL/min/1. 73m2 LAB CHEMISTRY METHOD 03/06/2024 2:12 PM [facility] Comment:Calculation based on the??Chronic Kidney Disease Epidemiology Collaboration (CKD-EPI) equation refit??without adjustment for race. BUN/Creatinine Ratio 20.0 LAB CHEMISTRY METHOD 03/06/2024 2:12 PM [facility] Calcium 9.2 8.5 - 10.5 mg/dL LAB CHEMISTRY METHOD 03/06/2024 2:12 PM [facility] Blood Venous blood specimen / Unknown Venipuncture / Unknown 03/06/2024 7:07 AM EST 03/06/2024 11:18 AM EST us Gilson Davidson MD LAB BLOOD ORDERABLES Final Resul t [facility] [address] [place] [address], [place] [phone] * (ABNORMAL) Complete blood count (03/06/2024 7:07 AM EST) [facility] WBC 7.7 4.8 - 10.8 K/mcL LAB HEMETOLOGY METHOD 03/06/2024 12:04 PM [facility] RBC 4.30 3.80 - 4.80 M/mcL LAB HEMETOLOGY METHOD 03/06/2024 12:04 PM [facility] Hemoglobin 11.9 11.5 - 16.0 g/dL LAB HEMETOLOGY METHOD 03/06/2024 12:04 PM [facility] Hematocrit 38.4 35.0 - 47.0 % LAB HEMETOLOGY METHOD 03/06/2024 12:04 PM [facility] MCV 90.1 79.0 - 98.0 FL LAB HEMETOLOGY METHOD 03/06/2024 12:04 PM [facility] MCH 27.9 27.0 - 32.0 pcg LAB HEMETOLOGY METHOD 03/06/2024 12:04 PM [facility] MCHC 31.0(L) 32.0 - 37.0 g/dL LAB HEMETOLOGY METHOD 03/06/2024 12:04 PM [facility] RDW 14.5 11.0 - 15.0 % LAB HEMETOLOGY METHOD 03/06/2024 12:04 PM [facility] Platelets 425(H) 130 - 400 K/mcL LAB HEMETOLOGY METHOD 03/06/2024 12:04 PM [facility] MPV 10.5 7.0 - 11.0 FL LAB HEMETOLOGY METHOD 03/06/2024 12:04 PM [facility] NRBC 0.0 <1.0 % LAB HEMETOLOGY METHOD 03/06/2024 12:04 PM [facility] NRBC Absolute 0.00 <0.10 K/mcL LAB HEMETOLOGY METHOD 03/06/2024 12:04 PM EST [facility] Blood Venous blood specimen / Unknown Venipuncture / Unknown 03/06/2024 7:07 AM EST 03/06/2024 11:18 AM EST us Gilson Davidson MD LAB BLOOD ORDERABLES Final Resul t [facility] [address] [place] [address], documented in this encounter Visit Diagnoses Diagnosis Type 2 diabetes mellitus without complications (CMS/HCC V24, CMS/HCC V28) Essential (primary) hypertension Unspecified essential hypertension documented in this encounter Care Teams General Manager Food Relationship Specialty Start Date End Date Kristin Bellamy MD [address] [facility] [address] [place], [place] PCP - General Internal Medicine 11/29/19 documented as of this encounter
--- OUTSIDE RECORDS SUMMARY | 2024-05-30 12:47 | XMS_ITS | Encounter Summary ---
Author Organization [facility] Address [address] [place] [address] Care Team Providers Care Curtain Feller Blindstitch Name Role Phone Kristin Bellamy MD Primary Care Provider [phone] Encounter Details Date Type Department Care Team (Late st Contact Info) Description 01/23/2024 Lab Requisition [facility] - Main Lab [address] [facility] [place] [address] Gilson Davidson MD [address] [place] [address] [address] [facility] [address] Type 2 diabetes mellitus without [...] (ABNORMAL) C-reactive protein (01/24/2024 8:13 AM EST) [facility] C-Reactive Protein 1.54(H) <=0.50 mg/dL LAB CHEMISTRY METHOD 01/24/2024 12:35 PM EST [facility] Blood Venous blood specimen / Unknown Venipuncture / Unknown 01/24/2024 8:13 AM EST 01/24/2024 11:39 AM EST Gilson Davidson MD LAB BLOOD ORDERABLES Final Resul t Performing Organization Address [facility]/ZIP Co de Phone Number [facility] [address] [place] [address], [place] [phone] * (ABNORMAL) Sedimentation rate (01/24/2024 8:13 AM EST) [facility] Sed Rate 91(H) 0 - 30 mm/hr LAB HEMETOLOGY METHOD 01/24/2024 12:43 PM EST [facility] Blood Venous blood specimen / Unknown Venipuncture / Unknown 01/24/2024 8:13 AM EST 01/24/2024 11:39 AM EST Gilson Davidson MD LAB BLOOD ORDERABLES Final Resul t [facility] [address] [place] [address], [place] [phone] * (ABNORMAL) Basic metabolic panel (01/24/2024 8:13 AM EST) [facility] Sodium 137 133 - 145 mmol/L LAB CHEMISTRY METHOD 01/24/2024 12:25 PM [facility] Potassium 4.3 3.5 - 5.5 mmol/L LAB CHEMISTRY METHOD 01/24/2024 12:25 PM [facility] Chloride 103 96 - 110 mmol/L LAB CHEMISTRY METHOD 01/24/2024 12:25 PM [facility] CO2 26 21 - 32 mmol/L LAB CHEMISTRY METHOD 01/24/2024 12:25 PM [facility] Anion Gap 8 3 - 11 LAB CHEMISTRY METHOD 01/24/2024 12:25 PM [facility] Glucose 173(H) 70 - 100 mg/dL LAB CHEMISTRY METHOD 01/24/2024 12:25 PM [facility] BUN 19 5 - 25 mg/dL LAB CHEMISTRY METHOD 01/24/2024 12:25 PM [facility] Creatinine 1.20(H) 0.50 - 1.10 mg/dL LAB CHEMISTRY METHOD 01/24/2024 12:25 PM [facility] eGFR 51(L) >=60 mL/min/1. 73m2 LAB CHEMISTRY METHOD 01/24/2024 12:25 PM [facility] Comment:Calculation based on the??Chronic Kidney Disease Epidemiology Collaboration (CKD-EPI) equation refit??without adjustment for race. BUN/Creatinine Ratio 15.8 LAB CHEMISTRY METHOD 01/24/2024 12:25 PM [facility] Calcium 9.2 8.5 - 10.5 mg/dL LAB CHEMISTRY METHOD 01/24/2024 12:25 PM [facility] Blood Venous blood specimen / Unknown Venipuncture / Unknown 01/24/2024 8:13 AM EST 01/24/2024 11:39 AM EST us Gilson Davidson MD LAB BLOOD ORDERABLES Final Resul t [facility] [address] [place] [address], [place] [phone] * (ABNORMAL) Complete blood count (01/24/2024 8:13 AM EST) [facility] WBC 6.8 4.8 - 10.8 K/mcL LAB HEMETOLOGY METHOD 01/24/2024 12:18 PM [facility] RBC 3.80 3.80 - 4.80 M/mcL LAB HEMETOLOGY METHOD 01/24/2024 12:18 PM [facility] Hemoglobin 10.3(L) 11.5 - 16.0 g/dL LAB HEMETOLOGY METHOD 01/24/2024 12:18 PM [facility] Hematocrit 33.3(L) 35.0 - 47.0 % LAB HEMETOLOGY METHOD 01/24/2024 12:18 PM [facility] MCV 88.8 79.0 - 98.0 FL LAB HEMETOLOGY METHOD 01/24/2024 12:18 PM [facility] MCH 27.5 27.0 - 32.0 pcg LAB HEMETOLOGY METHOD 01/24/2024 12:18 PM [facility] MCHC 30.9(L) 32.0 - 37.0 g/dL LAB HEMETOLOGY METHOD 01/24/2024 12:18 PM [facility] RDW 13.9 11.0 - 15.0 % LAB HEMETOLOGY METHOD 01/24/2024 12:18 PM [facility] Platelets 273 130 - 400 K/mcL LAB HEMETOLOGY METHOD 01/24/2024 12:18 PM [facility] MPV 10.7 7.0 - 11.0 FL LAB HEMETOLOGY METHOD 01/24/2024 12:18 PM [facility] NRBC 0.0 <1.0 % LAB HEMETOLOGY METHOD 01/24/2024 12:18 PM EST [facility] NRBC Absolute 0.00 <0.10 K/mcL LAB HEMETOLOGY METHOD 01/24/2024 12:18 PM EST [facility] Blood Venous blood specimen / Unknown Venipuncture / Unknown 01/24/2024 8:13 AM EST 01/24/2024 11:39 AM EST us Gilson Davidson MD LAB BLOOD ORDERABLES Final Resul t [facility] [address] [place] [address], documented in this encounter Visit Diagnoses Diagnosis Type 2 diabetes mellitus without complications (CMS/HCC V24, CMS/HCC V28) Essential (primary) hypertension Unspecified essential hypertension documented in this encounter Care Teams Curtain Feller Blindstitch Relationship Specialty Start Date End Date Kristin Bellamy MD 12[address] [facility] [address] [place], [place] PCP - General Internal Medicine 11/29/19 documented as of this encounter
--- OUTSIDE RECORDS SUMMARY | 2024-05-30 12:47 | XMS_ITS | Encounter Summary ---
Author Organization [facility] Address [address] [place] [address] Care Team Providers Care Supervising Law Enforcement Analyst Name Role Phone Kristin Bellamy MD Primary Care Provider [phone] Encounter Details Date Type Department Care Team (Late st Contact Info) Description 05/14/2024 Lab Requisition [facility] - Main Lab 299 [facility] [place] [address] Gilson Davidson MD [address] [place] [address] 204 [facility] [phone] Type 2 diabetes mellitus without [...] Date/Time Associated Diagnosis Comments SEDIMENTATION RATE Routine 05/15/2024 6: 57 AM [...] diabetes mellitus without complications Essential (primary) hypertension documented in this encounter Results * (ABNORMAL) Basic metabolic panel (05/15/2024 6:57 AM EDT) Sodium 138 133 - 145 mmol/L LAB CHEMISTRY METHOD 05/15/2024 1:03 PM [facility] Potassium 4.4 3.5 - 5.5 mmol/L LAB CHEMISTRY METHOD 05/15/2024 1:03 PM [facility] Chloride 105 96 - 110 mmol/L LAB CHEMISTRY METHOD 05/15/2024 1:03 PM [facility] CO2 24 21 - 32 mmol/L LAB CHEMISTRY METHOD 05/15/2024 1:03 PM [facility] Anion Gap 9 3 - 11 LAB CHEMISTRY METHOD 05/15/2024 1:03 PM [facility] Glucose 96 70 - 100 mg/dL LAB CHEMISTRY METHOD 05/15/2024 1:03 PM [facility] BUN 31(H) 5 - 25 mg/dL LAB CHEMISTRY METHOD 05/15/2024 1:03 PM [facility] Creatinine 1.44(H) 0.50 - 1.10 mg/dL LAB CHEMISTRY METHOD 05/15/2024 1:03 PM [facility] eGFR 41(L) >=60 mL/min/1. 73m2 LAB CHEMISTRY METHOD 05/15/2024 1:03 PM [facility] Comment:Calculation based on the??Chronic Kidney Disease Epidemiology Collaboration (CKD-EPI) equation refit??without adjustment for race. BUN/Creatinine Ratio 21.5 LAB CHEMISTRY METHOD 05/15/2024 1:03 PM [facility] Calcium 9.1 8.5 - 10.5 mg/dL LAB CHEMISTRY METHOD 05/15/2024 1:03 PM EDT [facility] Blood Venous blood specimen / Unknown Venipuncture / Unknown 05/15/2024 6:57 AM EDT 05/15/2024 12:14 PM EDT us Gilson Davidson MD LAB BLOOD ORDERABLES Final Resul t [facility] [address] [place] [address], * (ABNORMAL) Complete blood count (05/15/2024 6:57 AM EDT) WBC 7.5 4.8 - 10.8 K/mcL LAB HEMETOLOGY METHOD 05/15/2024 12:39 PM EDT [facility] RBC 4.20 3.80 - 4.80 M/[facility] LAB HEMETOLOGY METHOD 05/15/2024 12:39 PM EDT [facility] Hemoglobin 11.6 11.5 - 16.0 g/dL LAB HEMETOLOGY METHOD 05/15/2024 12:39 PM EDT [facility] Hematocrit 36.0 35.0 - 47.0 % LAB HEMETOLOGY METHOD 05/15/2024 12:39 PM EDT [facility] MCV 85.9 79.0 - 98.0 FL LAB HEMETOLOGY METHOD 05/15/2024 12:39 PM EDT [facility] MCH 27.7 27.0 - 32.0 pcg LAB HEMETOLOGY METHOD 05/15/2024 12:39 PM EDT [facility] MCHC 32.2 32.0 - 37.0 g/dL LAB HEMETOLOGY METHOD 05/15/2024 12:39 PM [facility] RDW 15.8(H) 11.0 - 15.0 % LAB HEMETOLOGY METHOD 05/15/2024 12:39 PM EDT [facility] Platelets 361 130 - 400 K/mcL LAB HEMETOLOGY METHOD 05/15/2024 12:39 PM EDT [facility] MPV 9.9 7.0 - 11.0 FL LAB HEMETOLOGY METHOD 05/15/2024 12:39 PM EDT [facility] NRBC 0.0 <1.0 % LAB HEMETOLOGY METHOD 05/15/2024 12:39 PM EDT [facility] NRBC Absolute 0.00 <0.10 K/mcL LAB HEMETOLOGY METHOD 05/15/2024 12:39 PM EDT [facility] Blood Venous blood specimen / Unknown Venipuncture / Unknown 05/15/2024 6:57 AM EDT 05/15/2024 12:14 PM EDT us Gilson Davidson MD LAB BLOOD ORDERABLES Final Resul t [facility] [address] [place] [address], [place] [phone] * (ABNORMAL) Sedimentation rate (05/15/2024 6:57 AM EDT) [facility] Sed Rate 53(H) 0 - 30 mm/hr LAB HEMETOLOGY METHOD 05/15/2024 12:46 PM EDT [facility] Blood Venous blood specimen / Unknown Venipuncture / Unknown 05/15/2024 6:57 AM EDT 05/15/2024 12:14 PM EDT us Gilson Davidson MD LAB BLOOD ORDERABLES Final Resul t [facility] [address] [place] [address], [place] [phone] * C-reactive protein (05/15/2024 6:57 AM EDT) C-Reactive Protein <0.29 <=0.50 mg/dL LAB CHEMISTRY METHOD 05/15/2024 1:03 PM EDT [facility] Blood Venous blood specimen / Unknown Venipuncture / Unknown 05/15/2024 6:57 AM EDT 05/15/2024 12:14 PM EDT us Gilson Davidson MD LAB BLOOD ORDERABLES Final Resul t [facility] [address] [place] [address], [place] [phone] documented in this encounter Visit Diagnoses Diagnosis Type 2 diabetes mellitus without complications (CMS/HCC V24, CMS/HCC V28) Essential (primary) hypertension Unspecified essential hypertension documented in this encounter Care Teams Supervising Law Enforcement Analyst Relationship Specialty Start Date End Date Kristin Bellamy MD [facility] [address] PCP - General Internal Medicine 11/29/19 documented as of this encounter
--- OUTSIDE RECORDS SUMMARY | 2024-05-30 12:47 | XMS_ITS | Encounter Summary ---
Author Organization [facility] Address [address] [place] [address] Care Team Providers Care Resource Efficiency Manager Name Role Phone Kristin Bellamy MD Primary Care Provider [phone] Encounter Details Date Type Department Care Team (Late st Contact Info) Description 02/13/2024 Lab Requisition [facility] - Main Lab 299 [facility] [place] [address] Gilson Daivdson MD [address] [place] [address] 204 [facility] [phone] Type 2 diabetes mellitus without [...] (ABNORMAL) Sedimentation rate (02/15/2024 6:19 AM EST) Sed Rate 67(H) 0 - 30 mm/hr LAB HEMETOLOGY METHOD 02/15/2024 10:39 AM EST [facility] Blood Venous blood specimen / Unknown Venipuncture / Unknown 02/15/2024 6:19 AM EST 02/15/2024 9:41 AM EST Gilson Davidson MD LAB BLOOD ORDERABLES Final Resul t Performing Organization Address [facility]/ZIP Co de Phone Number [facility] [address] [place] [address], [place] [phone] * C-reactive protein (02/15/2024 6:19 AM EST) Pathologist [facility] C-Reactive Protein <0.29 <=0.50 mg/dL LAB CHEMISTRY METHOD 02/15/2024 11:53 AM EST [facility] Blood Venous blood specimen / Unknown Venipuncture / Unknown 02/15/2024 6:19 AM EST 02/15/2024 9:40 AM EST Gilson Davidson MD LAB BLOOD ORDERABLES Final Resul t [facility] [address] [place] [address], [place] [phone] * (ABNORMAL) Basic metabolic panel (02/15/2024 6:19 AM EST) Pathologist [facility] Sodium 139 133 - 145 mmol/L LAB CHEMISTRY METHOD 02/15/2024 11:53 AM EST [facility] Potassium 4.5 3.5 - 5.5 mmol/L LAB CHEMISTRY METHOD 02/15/2024 11:53 AM [facility] Chloride 109 96 - 110 mmol/L LAB CHEMISTRY METHOD 02/15/2024 11:53 AM [facility] CO2 28 21 - 32 mmol/L LAB CHEMISTRY METHOD 02/15/2024 11:53 AM [facility] Anion Gap 2(L) 3 - 11 LAB CHEMISTRY METHOD 02/15/2024 11:53 AM [facility] Glucose 192(H) 70 - 100 mg/dL LAB CHEMISTRY METHOD 02/15/2024 11:53 AM [facility] BUN 24 5 - 25 mg/dL LAB CHEMISTRY METHOD 02/15/2024 11:53 AM [facility] Creatinine 1.17(H) 0.50 - 1.10 mg/dL LAB CHEMISTRY METHOD 02/15/2024 11:53 AM [facility] eGFR 53(L) >=60 mL/min/1. 73m2 LAB CHEMISTRY METHOD 02/15/2024 11:53 AM [facility] Comment:Calculation based on the??Chronic Kidney Disease Epidemiology Collaboration (CKD-EPI) equation refit??without adjustment for race. BUN/Creatinine Ratio 20.5 LAB CHEMISTRY METHOD 02/15/2024 11:53 AM [facility] Calcium 8.8 8.5 - 10.5 mg/dL LAB CHEMISTRY METHOD 02/15/2024 11:53 AM [facility] Blood Venous blood specimen / Unknown Venipuncture / Unknown 02/15/2024 6:19 AM EST 02/15/2024 9:40 AM EST us Gilson Davidson MD LAB BLOOD ORDERABLES Final Resul t [facility] [address] [place] [address], [place] [phone] * (ABNORMAL) Complete blood count (02/15/2024 6:19 AM EST) [facility] WBC 6.7 4.8 - 10.8 K/mcL LAB HEMETOLOGY METHOD 02/15/2024 10:56 AM [facility] RBC 3.80 3.80 - 4.80 M/mcL LAB HEMETOLOGY METHOD 02/15/2024 10:56 AM [facility] Hemoglobin 10.6(L) 11.5 - 16.0 g/dL LAB HEMETOLOGY METHOD 02/15/2024 10:56 AM [facility] Hematocrit 34.4(L) 35.0 - 47.0 % LAB HEMETOLOGY METHOD 02/15/2024 10:56 AM [facility] MCV 89.8 79.0 - 98.0 FL LAB HEMETOLOGY METHOD 02/15/2024 10:56 AM [facility] MCH 27.7 27.0 - 32.0 pcg LAB HEMETOLOGY METHOD 02/15/2024 10:56 AM [facility] MCHC 30.8(L) 32.0 - 37.0 g/dL LAB HEMETOLOGY METHOD 02/15/2024 10:56 AM [facility] RDW 14.1 11.0 - 15.0 % LAB HEMETOLOGY METHOD 02/15/2024 10:56 AM [facility] Platelets 334 130 - 400 K/mcL LAB HEMETOLOGY METHOD 02/15/2024 10:56 AM [facility] MPV 10.7 7.0 - 11.0 FL LAB HEMETOLOGY METHOD 02/15/2024 10:56 AM [facility] NRBC 0.0 <1.0 % LAB HEMETOLOGY METHOD 02/15/2024 10:56 AM [facility] NRBC Absolute 0.00 <0.10 K/mcL LAB HEMETOLOGY METHOD 02/15/2024 10:56 AM EST [facility] Blood Venous blood specimen / Unknown Venipuncture / Unknown 02/15/2024 6:19 AM EST 02/15/2024 9:41 AM EST us Gilson Davidson MD LAB BLOOD ORDERABLES Final Resul t [facility] [address] [place] [address], documented in this encounter Visit Diagnoses Diagnosis Type 2 diabetes mellitus without complications (CMS/HCC V24, CMS/HCC V28) Essential (primary) hypertension Unspecified essential hypertension documented in this encounter Care Teams Resource Efficiency Manager Relationship Specialty Start Date End Date Kristin Bellamy MD [address] [facility] [address] [place], [place] PCP - General Internal Medicine 11/29/19 documented as of this encounter
--- OUTSIDE RECORDS SUMMARY | 2024-05-30 12:47 | XMS_ITS | Encounter Summary ---
Author Organization [facility] Address [address] [place] [address] Care Team Providers Care [facility] Name Role Phone Kristin Bellamy MD Primary Care Provider [phone] Encounter Details Date Type Department Care Team (Late st Contact Info) Description 04/02/2024 Lab Requisition [facility] - Main Lab 299 [facility] [place] [address] Gilson Davidson MD [address] [place] [address] 204 [facility] [phone] Essential (primary) hypertension; Type 2 diabetes mellitus without complications (CMS/HCC V24, CMS/HCC V28) Social History Tobacco Use Types Packs/Day Years [...] hypertension Type 2 diabetes mellitus without complications (CMS/HCC V24, CMS/HCC V28) documented in this encounter Care Teams [facility] Relationship Specialty Start Date End Date Kristin Bellamy MD [address] [facility] [address] [place] [place] PCP - General Internal Medicine 11/29/19 documented as of this encounter
--- OUTSIDE RECORDS SUMMARY | 2024-05-30 12:47 | XMS_ITS | Encounter Summary ---
Author Organization [facility] Address [address] [place] [address] Care Team Providers Care Racker Octave Board Name Role Phone Kristin Bellamy MD Primary Care Provider [phone] Encounter Details Date Type Department Care Team ([facility] st Contact Info) Description 07/28/2017 Scanned Document [facility] [address] [id number] Roger Morales DPM [address] [place] [phone] Social History Tobacco Use Types Packs/Day Years [...] on filedocumented in this encounter Care Teams Racker Octave Board Relationship Specialty Start Date End Date Kristin Bellamy MD [address] [phone] PCP - General Internal Medicine 07/31/17 documented as of this encounter
--- OUTSIDE RECORDS SUMMARY | 2024-05-30 12:47 | XMS_ITS | Encounter Summary ---
Author Organization [facility] Address [address] [place] [address] Care Team Providers Care Analog Ic Design Engineer Name Role Phone Kristin Bellamy MD Primary Care Provider [phone] Encounter Details Date Type Department Care Team (Late st Contact Info) Description 05/28/2024 Lab Requisition [facility] - Main Lab 299 [facility] [place] [address] Gilson Davidson MD [address] [place] [phone] Type 2 diabetes mellitus without complications [...] Date/Time Associated Diagnosis Comments SEDIMENTATION RATE Routine 05/29/2024 5: 41 AM EDT Type 2 diabetes mellitus without complications (CMS/HCC V24, CMS/HCC V28) Essential (primary) hypertension COMPLETE BLOOD COUNT Routine 05/29/2024 5:41 AM EDT Type 2 diabetes mellitus without complications (CMS/HCC V24, CMS/HCC V28) Essential (primary) hypertension C-REACTIVE PROTEIN Routine 05/29/2024 5: 41 AM EDT Type 2 diabetes mellitus without complications ([facility] V24, [facility] V28) Essential (primary) hypertension BASIC METABOLIC PANEL Routine 05/29/2024 5:41 AM EDT Type 2 diabetes mellitus without complications ([facility] V24, [facility] V28) Essential (primary) hypertension documented in this encounter Results * (ABNORMAL) Basic metabolic panel (05/29/2024 5:41 AM EDT) Pathologist [facility] Sodium 138 133 - 145 mmol/L LAB CHEMISTRY METHOD 05/29/2024 12:42 PM [facility] Potassium 4.3 3.5 - 5.5 mmol/L LAB CHEMISTRY METHOD 05/29/2024 12:42 PM [facility] Chloride 104 96 - 110 mmol/L LAB CHEMISTRY METHOD 05/29/2024 12:42 PM [facility] CO2 27 21 - 32 mmol/L LAB CHEMISTRY METHOD 05/29/2024 12:42 PM [facility] Anion Gap 7 3 - 11 LAB CHEMISTRY METHOD 05/29/2024 12:42 PM [facility] Glucose 69(L) 70 - 100 mg/dL LAB CHEMISTRY METHOD 05/29/2024 12:42 PM [facility] BUN 32(H) 5 - 25 mg/dL LAB CHEMISTRY METHOD 05/29/2024 12:42 PM [facility] Creatinine 1.35(H) 0.50 - 1.10 mg/dL LAB CHEMISTRY METHOD 05/29/2024 12:42 PM [facility] eGFR 45(L) >=60 mL/min/1. 73m2 LAB CHEMISTRY METHOD 05/29/2024 12:42 PM [facility] Comment:Calculation based on the??Chronic Kidney Disease Epidemiology Collaboration (CKD-EPI) equation refit??without adjustment for race. BUN/Creatinine Ratio 23.7 LAB CHEMISTRY METHOD 05/29/2024 12:42 PM T [facility] Calcium 9.0 8.5 - 10.5 mg/dL LAB CHEMISTRY METHOD 05/29/2024 12:42 PM [facility] Blood Venous blood specimen / Unknown Venipuncture / Unknown 05/29/2024 5:41 AM EDT 05/29/2024 11:16 AM EDT us Gilson Davidson MD LAB BLOOD ORDERABLES Final Resul t [facility] [address] [place] [address], [place] [phone] * (ABNORMAL) Complete blood count (05/29/2024 5:41 AM EDT) WBC 6.5 4.8 - 10.8 K/mcL LAB HEMETOLOGY METHOD 05/29/2024 11:30 AM [facility] RBC 4.20 3.80 - 4.80 M/mcL LAB HEMETOLOGY METHOD 05/29/2024 11:30 AM [facility] Hemoglobin 11.6 11.5 - 16.0 g/dL LAB HEMETOLOGY METHOD 05/29/2024 11:30 AM [facility] Hematocrit 36.1 35.0 - 47.0 % LAB HEMETOLOGY METHOD 05/29/2024 [facility] MCV 87.0 79.0 - 98.0 FL LAB HEMETOLOGY METHOD 05/29/2024 11:30 AM [facility] MCH 28.0 27.0 - 32.0 pcg LAB HEMETOLOGY METHOD 05/29/2024 11:30 AM [facility] MCHC 32.1 32.0 - 37.0 g/dL LAB HEMETOLOGY METHOD 05/29/2024 11:30 AM EDT [facility] RDW 15.5(H) 11.0 - 15.0 % LAB HEMETOLOGY METHOD 05/29/2024 11:30 AM EDT [facility] Platelets 296 130 - 400 K/mcL LAB HEMETOLOGY METHOD 05/29/2024 11:30 AM EDT [facility] MPV 10.4 7.0 - 11.0 FL LAB HEMETOLOGY METHOD 05/29/2024 11:30 AM EDT [facility] NRBC 0.0 <1.0 % LAB HEMETOLOGY METHOD 05/29/2024 11:30 AM EDT [facility] NRBC Absolute 0.00 <0.10 K/mcL LAB HEMETOLOGY METHOD 05/29/2024 11:30 AM EDT [facility] Blood Venous blood specimen / Unknown Venipuncture / Unknown 05/29/2024 5:41 AM EDT 05/29/2024 11:16 AM EDT us Gilson Davidson MD LAB BLOOD ORDERABLES Final Resul t Performing Organization Address City/[facility]/ZIP Co de Phone Number [facility] [address] [place] [address], [place] [phone] * (ABNORMAL) Sedimentation rate (05/29/2024 5:41 AM EDT) Sed Rate 61(H) 0 - 30 mm/hr LAB HEMETOLOGY METHOD 05/29/2024 11:36 AM EDT [facility] Blood Venous blood specimen / Unknown Venipuncture / Unknown 05/29/2024 5:41 AM EDT 05/29/2024 11:16 AM EDT us Gilson Davidson MD LAB BLOOD ORDERABLES Final Resul t [facility] [address] [place] [address], [place] [phone] * C-reactive protein (05/29/2024 5:41 AM EDT) C-Reactive Protein <0.29 <=0.50 mg/dL LAB CHEMISTRY METHOD 05/29/2024 12:42 PM EDT [facility] Blood Venous blood specimen / Unknown Venipuncture / Unknown 05/29/2024 5:41 AM EDT 05/29/2024 11:16 AM EDT Gilson Davidson MD LAB BLOOD ORDERABLES Final Resul t [facility] [address] [place] [address], [place] [phone] documented in this encounter Visit Diagnoses Diagnosis Type 2 diabetes mellitus without complications (CMS/HCC V24, CMS/HCC V28) Essential (primary) hypertension Unspecified essential hypertension documented in this encounter Care Teams Analog Ic Design Engineer Relationship Specialty Start Date End Date Kristin Bellamy MD [facility] [address] PCP - General Internal Medicine 11/29/19 documented as of this encounter
--- OUTSIDE RECORDS SUMMARY | 2024-05-30 12:47 | XMS_ITS | Encounter Summary ---
Author Organization [facility] Address [address] [place] [address] Care Team Providers Care Boilermaking Supervisor Name Role Phone Kristin Bellamy MD Primary Care Provider Encounter Details Date Type Department Care Team (Late st Contact Info) Description 05/21/[address] [facility] - Main Lab 299 [facility] [place] [address] Gilson Davidson MD [address] [place] [address] 204 [facility] [place] [facility] [phone] Type 2 diabetes mellitus without [...] Date/Time Associated Diagnosis Comments SEDIMENTATION RATE Routine 05/22/2024 5: 30 AM [...] encounter Results * (ABNORMAL) Basic metabolic panel (05/22/2024 5:30 AM EDT) Sodium 142 133 - 145 mmol/L LAB CHEMISTRY METHOD 05/22/2024 12:51 PM [facility] Potassium 4.3 3.5 - 5.5 mmol/L LAB CHEMISTRY METHOD 05/22/2024 12:51 PM [facility] Chloride 107 96 - 110 mmol/L LAB CHEMISTRY METHOD 05/22/2024 12:51 PM [facility] CO2 26 21 - 32 mmol/L LAB CHEMISTRY METHOD 05/22/2024 12:51 PM [facility] Anion Gap 9 3 - 11 LAB CHEMISTRY METHOD 05/22/2024 12:51 PM [facility] Glucose 62(L) 70 - 100 mg/dL LAB CHEMISTRY METHOD 05/22/2024 12:51 PM [facility] BUN 23 5 - 25 mg/dL LAB CHEMISTRY METHOD 05/22/2024 12:51 PM [facility] Creatinine 1.21(H) 0.50 - 1.10 mg/dL LAB CHEMISTRY METHOD 05/22/2024 12:51 PM [facility] eGFR 51(L) >=60 mL/min/1. 73m2 LAB CHEMISTRY METHOD 05/22/2024 12:51 PM [facility] Comment:Calculation based on the??Chronic Kidney Disease Epidemiology Collaboration (CKD-EPI) equation refit??without adjustment for race. BUN/Creatinine Ratio 19.0 LAB CHEMISTRY METHOD 05/22/2024 12:51 PM [facility] Calcium 9.2 8.5 - 10.5 mg/dL LAB CHEMISTRY METHOD 05/22/2024 12:51 PM EDT [facility] Blood Venous blood specimen / Unknown Venipuncture / Unknown 05/22/2024 5:30 AM EDT 05/22/2024 10:57 AM EDT us Gilson Davidson MD LAB BLOOD ORDERABLES Final Resul t [facility] [address] [place] [address], * (ABNORMAL) Complete blood count (05/22/2024 5:30 AM EDT) WBC 6.6 4.8 - 10.8 K/mcL LAB HEMETOLOGY METHOD 05/22/2024 11:35 AM [facility] RBC 4.20 3.80 - 4.80 M/[facility] LAB HEMETOLOGY METHOD 05/22/2024 11:35 AM [facility] Hemoglobin 11.5 11.5 - 16.0 g/dL LAB HEMETOLOGY METHOD 05/22/2024 11:35 AM [facility] Hematocrit 36.3 35.0 - 47.0 % LAB HEMETOLOGY METHOD 05/22/2024 11:35 AM [facility] MCV 87.1 79.0 - 98.0 FL LAB HEMETOLOGY METHOD 05/22/2024 11:35 AM T [facility] MCH 27.6 27.0 - 32.0 pcg LAB HEMETOLOGY METHOD 05/22/2024 11:35 AM [facility] MCHC 31.7(L) 32.0 - 37.0 g/dL LAB HEMETOLOGY METHOD 05/22/2024 11:35 AM [facility] RDW 15.7(H) 11.0 - 15.0 % LAB HEMETOLOGY METHOD 05/22/2024 11:35 AM EDT [facility] Platelets 329 130 - 400 K/mcL LAB HEMETOLOGY METHOD 05/22/2024 11:35 AM EDT [facility] MPV 10.0 7.0 - 11.0 FL LAB HEMETOLOGY METHOD 05/22/2024 11:35 AM EDT [facility] NRBC 0.0 <1.0 % LAB HEMETOLOGY METHOD 05/22/2024 11:35 AM EDT [facility] NRBC Absolute 0.00 <0.10 K/mcL LAB HEMETOLOGY METHOD 05/22/2024 11:35 AM EDT [facility] Blood Venous blood specimen / Unknown Venipuncture / Unknown 05/22/2024 5:30 AM EDT 05/22/2024 11:12 AM EDT us Gilson Davidson MD LAB BLOOD ORDERABLES Final Resul t Performing Organization Address City/[facility]/ZIP Co de Phone Number [facility] [address] [place] [address], [place] [phone] * (ABNORMAL) Sedimentation rate (05/22/2024 5:30 AM EDT) [facility] Sed Rate 42(H) 0 - 30 mm/hr LAB HEMETOLOGY METHOD 05/22/2024 11:55 AM EDT [facility] Blood Venous blood specimen / Unknown Venipuncture / Unknown 05/22/2024 5:30 AM EDT 05/22/2024 11:12 AM EDT us Gilson Daivdson MD LAB BLOOD ORDERABLES Final Resul t [facility] [address] [place] [address], [place] [phone] * C-reactive protein (05/22/2024 5:30 AM EDT) C-Reactive Protein <0.29 <=0.50 mg/dL LAB CHEMISTRY METHOD 05/22/2024 12:51 PM EDT [facility] Blood Venous blood specimen / Unknown Venipuncture / Unknown 05/22/2024 5:30 AM EDT 05/22/2024 10:57 AM EDT us Gilson Davidson MD LAB BLOOD ORDERABLES Final Resul t [facility] [address] [place] [address], [place] [phone] documented in this encounter Visit Diagnoses Diagnosis Type 2 diabetes mellitus without complications (CMS/HCC V24, CMS/HCC V28) Essential (primary) hypertension Unspecified essential hypertension documented in this encounter Care Teams Boilermaking Supervisor Relationship Specialty Start Date End Date Kristin Bellamy MD [facility] [address] PCP - General Internal Medicine 11/29/19 documented as of this encounter
--- OUTSIDE RECORDS SUMMARY | 2024-05-30 12:47 | XMS_ITS | Encounter Summary ---
Author Organization [facility] Address [address] [place] [address] Care Team Providers Care Front End Developer Designer Name Role Phone Kristin Bellamy MD Primary Care Provider [phone] Encounter Details Date Type Department Care Team (Late st Contact Info) Description 03/12/2024 Lab Requisition [facility] - Main Lab [address] [facility] [place] [address] Gilson Davidson MD [address] [place] [phone] Type 2 diabetes mellitus without complications [...] Sedimentation rate (03/13/2024 7:14 AM EST) Pathologist [facility] Sed Rate 76(H) 0 - 30 mm/hr LAB HEMETOLOGY METHOD 03/13/2024 1:03 PM EST [facility] Blood Venous blood specimen / Unknown Venipuncture / Unknown 03/13/2024 7:14 AM EST 03/13/2024 11:09 AM EST Gilson Davidson MD LAB BLOOD ORDERABLES Final Resul t Performing Organization Address [facility]/ZIP Co de Phone Number [facility] [address] [place] [address], [place] [phone] * (ABNORMAL) C-reactive protein (03/13/2024 7:14 AM EST) [facility] C-Reactive Protein 0.66(H) <=0.50 mg/dL LAB CHEMISTRY METHOD 03/13/2024 12:57 PM EST [facility] Blood Venous blood specimen / Unknown Venipuncture / Unknown 03/13/2024 7:14 AM EST 03/13/2024 11:09 AM EST Gilson Davidson MD LAB BLOOD ORDERABLES Final Resul t [facility] [address] [place] [address], [place] [phone] * (ABNORMAL) Basic metabolic panel (03/13/2024 7:14 AM EST) [facility] Sodium 137 133 - 145 mmol/L LAB CHEMISTRY METHOD 03/13/2024 12:40 PM [facility] Potassium 5.2 3.5 - 5.5 mmol/L LAB CHEMISTRY METHOD 03/13/2024 12:40 PM [facility] Chloride 106 96 - 110 mmol/L LAB CHEMISTRY METHOD 03/13/2024 12:40 PM [facility] CO2 27 21 - 32 mmol/L LAB CHEMISTRY METHOD 03/13/2024 12:40 PM [facility] Anion Gap 4 3 - 11 LAB CHEMISTRY METHOD 03/13/2024 12:40 PM [facility] Glucose 83 70 - 100 mg/dL LAB CHEMISTRY METHOD 03/13/2024 12:40 PM [facility] BUN 28(H) 5 - 25 mg/dL LAB CHEMISTRY METHOD 03/13/2024 12:40 PM [facility] Creatinine 1.40(H) 0.50 - 1.10 mg/dL LAB CHEMISTRY METHOD 03/13/2024 12:40 PM [facility] eGFR 43(L) >=60 mL/min/1. 73m2 LAB CHEMISTRY METHOD 03/13/2024 12:40 PM [facility] Comment:Calculation based on the??Chronic Kidney Disease Epidemiology Collaboration (CKD-EPI) equation refit??without adjustment for race. BUN/Creatinine Ratio 20.0 LAB CHEMISTRY METHOD 03/13/2024 12:40 PM [facility] Calcium 9.2 8.5 - 10.5 mg/dL LAB CHEMISTRY METHOD 03/13/2024 12:40 PM [facility] Blood Venous blood specimen / Unknown Venipuncture / Unknown 03/13/2024 7:14 AM EST 03/13/2024 11:09 AM EST us Gilson Davidson MD LAB BLOOD ORDERABLES Final Resul t [facility] [address] [place] [address], [place] [phone] * (ABNORMAL) Complete blood count (03/13/2024 7:14 AM EST) [facility] WBC 9.6 4.8 - 10.8 K/mcL LAB HEMETOLOGY METHOD 03/13/2024 12:54 PM [facility] RBC 4.40 3.80 - 4.80 M/mcL LAB HEMETOLOGY METHOD 03/13/2024 12:54 PM [facility] Hemoglobin 11.9 11.5 - 16.0 g/dL LAB HEMETOLOGY METHOD 03/13/2024 12:54 PM [facility] Hematocrit 37.9 35.0 - 47.0 % LAB HEMETOLOGY METHOD 03/13/2024 12:54 PM [facility] MCV 86.5 79.0 - 98.0 FL LAB HEMETOLOGY METHOD 03/13/2024 12:54 PM [facility] MCH 27.2 27.0 - 32.0 pcg LAB HEMETOLOGY METHOD 03/13/2024 12:54 PM [facility] MCHC 31.4(L) 32.0 - 37.0 g/dL LAB HEMETOLOGY METHOD 03/13/2024 12:54 PM [facility] RDW 14.2 11.0 - 15.0 % LAB HEMETOLOGY METHOD 03/13/2024 12:54 PM [facility] Platelets 456(H) 130 - 400 K/mcL LAB HEMETOLOGY METHOD 03/13/2024 12:54 PM [facility] MPV 10.3 7.0 - 11.0 FL LAB HEMETOLOGY METHOD 03/13/2024 12:54 PM [facility] NRBC 0.0 <1.0 % LAB HEMETOLOGY METHOD 03/13/2024 12:54 PM [facility] NRBC Absolute 0.00 <0.10 K/[facility] LAB HEMETOLOGY METHOD 03/13/2024 12:54 PM EST [facility] Blood Venous blood specimen / Unknown Venipuncture / Unknown 03/13/2024 7:14 AM EST 03/13/2024 11:09 AM EST us Gilson Davidson MD LAB BLOOD ORDERABLES Final Resul t [facility] [address] [place] [address], documented in this encounter Visit Diagnoses Diagnosis Type 2 diabetes mellitus without complications (CMS/HCC V24, CMS/HCC V28) Essential (primary) hypertension Unspecified essential hypertension documented in this encounter Care Teams Front End Developer Designer Relationship Specialty Start Date End Date Kristin Bellamy MD [address] [facility] [address] [place], [place] PCP - General Internal Medicine 11/29/19 documented as of this encounter
--- OUTSIDE RECORDS SUMMARY | 2024-05-30 12:47 | XMS_ITS | Encounter Summary ---
Author Organization [facility] Address [address] [place] [address] Care Team Providers Care Retort Loader Name Role Phone Kristin Bellamy MD Primary Care Provider [phone] Encounter Details Date Type Department Care Team (Late st Contact Info) Description 04/09/2024 Lab Requisition [facility] - Main Lab [address] [facility] [place] [address] Gilson Davidson MD [address] [place] [phone] Essential (primary) hypertension; Type 2 diabetes [...] Sedimentation rate (04/10/2024 4:50 AM EST) Pathologist [facility] Sed Rate 94(H) 0 - 30 mm/hr LAB HEMETOLOGY METHOD 04/10/2024 11:11 AM EST [facility] Blood Venous blood specimen / Unknown Venipuncture / Unknown 04/10/2024 4:50 AM EST 04/10/2024 9:58 AM EST Gilson Davidson MD LAB BLOOD ORDERABLES Final Resul t Performing Organization Address [facility]/ZIP Co de Phone Number [facility] [address] [place] [address], [place] [phone] * (ABNORMAL) C-reactive protein (04/10/2024 4:50 AM EST) [facility] C-Reactive Protein 1.08(H) <=0.50 mg/dL LAB CHEMISTRY METHOD 04/10/2024 10:55 AM EST [facility] Blood Venous blood specimen / Unknown Venipuncture / Unknown 04/10/2024 4:50 AM EST 04/10/2024 9:58 AM EST Gilson Davidson MD LAB BLOOD ORDERABLES Final Resul t [facility] [address] [place] [address], * (ABNORMAL) Basic metabolic panel (04/10/2024 4:50 AM EST) [facility] Sodium 141 133 - 145 mmol/L LAB CHEMISTRY METHOD 04/10/2024 10:46 AM [facility] Potassium 3.8 3.5 - 5.5 mmol/L LAB CHEMISTRY METHOD 04/10/2024 10:46 AM [facility] Chloride 106 96 - 110 mmol/L LAB CHEMISTRY METHOD 04/10/2024 10:46 AM [facility] CO2 25 21 - 32 mmol/L LAB CHEMISTRY METHOD 04/10/2024 10:46 AM [facility] Anion Gap 10 3 - 11 LAB CHEMISTRY METHOD 04/10/2024 10:46 AM [facility] Glucose 126(H) 70 - 100 mg/dL LAB CHEMISTRY METHOD 04/10/2024 10:46 AM [facility] BUN 15 5 - 25 mg/dL LAB CHEMISTRY METHOD 04/10/2024 10:46 AM [facility] Creatinine 1.22(H) 0.50 - 1.10 mg/dL LAB CHEMISTRY METHOD 04/10/2024 10:46 AM [facility] eGFR 50(L) >=60 mL/min/1. 73m2 LAB CHEMISTRY METHOD 04/10/2024 10:46 AM [facility] Comment:Calculation based on the??Chronic Kidney Disease Epidemiology Collaboration (CKD-EPI) equation refit??without adjustment for race. BUN/Creatinine Ratio 12.3 LAB CHEMISTRY METHOD 04/10/2024 10:46 AM [facility] Calcium 8.8 8.5 - 10.5 mg/dL LAB CHEMISTRY METHOD 04/10/2024 10:46 AM [facility] Blood Venous blood specimen / Unknown Venipuncture / Unknown 04/10/2024 4:50 AM EST 04/10/2024 9:58 AM EST us Gilson Davidson MD LAB BLOOD ORDERABLES Final Resul t [facility] [address] [place] [address], [place] [phone] * (ABNORMAL) Complete blood count (04/10/2024 4:50 AM EST) [facility] WBC 10.4 4.8 - 10.8 K/mcL LAB HEMETOLOGY METHOD 04/10/2024 10:50 AM [facility] RBC 3.70(L) 3.80 - 4.80 M/mcL LAB HEMETOLOGY METHOD 04/10/2024 10:50 AM [facility] Hemoglobin 9.8(L) 11.5 - 16.0 g/dL LAB HEMETOLOGY METHOD 04/10/2024 10:50 AM [facility] Hematocrit 31.2(L) 35.0 - 47.0 % LAB HEMETOLOGY METHOD 04/10/2024 10:50 AM [facility] MCV 85.0 79.0 - 98.0 FL LAB HEMETOLOGY METHOD 04/10/2024 10:50 AM [facility] MCH 26.7(L) 27.0 - 32.0 pcg LAB HEMETOLOGY METHOD 04/10/2024 10:50 AM [facility] MCHC 31.4(L) 32.0 - 37.0 g/dL LAB HEMETOLOGY METHOD 04/10/2024 10:50 AM [facility] RDW 14.6 11.0 - 15.0 % LAB HEMETOLOGY METHOD 04/10/2024 10:50 AM [facility] Platelets 425(H) 130 - 400 K/mcL LAB HEMETOLOGY METHOD 04/10/2024 10:50 AM [facility] MPV 9.6 7.0 - 11.0 FL LAB HEMETOLOGY METHOD 04/10/2024 10:50 AM [facility] NRBC 0.0 <1.0 % LAB HEMETOLOGY METHOD 04/10/2024 10:50 AM [facility] NRBC Absolute 0.00 <0.10 K/mcL LAB HEMETOLOGY METHOD 04/10/2024 10:50 AM EST [facility] Blood Venous blood specimen / Unknown Venipuncture / Unknown 04/10/2024 4:50 AM EST 04/10/2024 9:58 AM EST us Gilson Davidson MD LAB BLOOD ORDERABLES Final Resul t [facility] [address] [place] [address], [place] [phone] documented in this encounter Visit Diagnoses Diagnosis Essential (primary) hypertension Unspecified essential hypertension Type 2 diabetes mellitus without complications (CMS/HCC V24, CMS/HCC V28) documented in this encounter Care Teams Retort Loader Relationship Specialty Start Date End Date Kristin Bellamy MD [address] [place] [address] PCP - General Internal Medicine 11/29/19 documented as of this encounter
--- OUTSIDE RECORDS SUMMARY | 2024-05-30 12:47 | XMS_ITS | Encounter Summary ---
Author Organization [facility] Address [address] [place] [address] Care Team Providers Care Nylon Hot Wire Cutter Name Role Phone Kristin Bellamy MD Primary Care Provider [phone] Encounter Details Date Type Department Care Team (Late st Contact Info) Description 01/09/2024 Lab Requisition [facility] - Main Lab [address] [facility] [place] [address] Gilson Davidson MD [address] [place] [address] [address] [facility] [phone] Type 2 diabetes mellitus without complications [...] Sedimentation rate (01/10/2024 7:05 AM EST) Pathologist [facility] Sed Rate 80(H) 0 - 30 mm/hr LAB HEMETOLOGY METHOD 01/10/2024 10:22 AM EST [facility] Blood Venous blood specimen / Unknown Venipuncture / Unknown 01/10/2024 7:05 AM EST 01/10/2024 10:05 AM EST Gilson Davidson MD LAB BLOOD ORDERABLES Final Resul t Performing Organization Address [facility]/ZIP Co de Phone Number [facility] [address] [place] [address], [place] [phone] * (ABNORMAL) C-reactive protein (01/10/2024 7:05 AM EST) [facility] C-Reactive Protein 2.18(H) <=0.50 mg/dL LAB CHEMISTRY METHOD 01/10/2024 10:50 AM EST [facility] Blood Venous blood specimen / Unknown Venipuncture / Unknown 01/10/2024 7:05 AM EST 01/10/2024 9:58 AM EST Gilson Davidson MD LAB BLOOD ORDERABLES Final Resul t [facility] [address] [place] [address], [place] [phone] * (ABNORMAL) Basic metabolic panel (01/10/2024 7:05 AM EST) [facility] Sodium 139 133 - 145 mmol/L LAB CHEMISTRY METHOD 01/10/2024 10:53 AM [facility] Potassium 4.7 3.5 - 5.5 mmol/L LAB CHEMISTRY METHOD 01/10/2024 10:53 AM [facility] Chloride 106 96 - 110 mmol/L LAB CHEMISTRY METHOD 01/10/2024 10:53 AM [facility] CO2 24 21 - 32 mmol/L LAB CHEMISTRY METHOD 01/10/2024 10:53 AM [facility] Anion Gap 9 3 - 11 LAB CHEMISTRY METHOD 01/10/2024 10:53 AM [facility] Glucose 155(H) 70 - 100 mg/dL LAB CHEMISTRY METHOD 01/10/2024 10:53 AM [facility] BUN 18 5 - 25 mg/dL LAB CHEMISTRY METHOD 01/10/2024 10:53 AM [facility] Creatinine 1.20(H) 0.50 - 1.10 mg/dL LAB CHEMISTRY METHOD 01/10/2024 10:53 AM [facility] eGFR 51(L) >=60 mL/min/1. 73m2 LAB CHEMISTRY METHOD 01/10/2024 10:53 AM [facility] Comment:Calculation based on the??Chronic Kidney Disease Epidemiology Collaboration (CKD-EPI) equation refit??without adjustment for race. BUN/Creatinine Ratio 15.0 LAB CHEMISTRY METHOD 01/10/2024 10:53 AM [facility] Calcium 9.4 8.5 - 10.5 mg/dL LAB CHEMISTRY METHOD 01/10/2024 10:53 AM [facility] Blood Venous blood specimen / Unknown Venipuncture / Unknown 01/10/2024 7:05 AM EST 01/10/2024 9:58 AM EST us Gilson Davidson MD LAB BLOOD ORDERABLES Final Resul t [facility] [address] [place] [address], [place] [phone] * (ABNORMAL) Complete blood count (01/10/2024 7:05 AM EST) [facility] WBC 12.8(H) 4.8 - 10.8 K/mcL LAB HEMETOLOGY METHOD 01/10/2024 10:13 AM [facility] RBC 3.40(L) 3.80 - 4.80 M/mcL LAB HEMETOLOGY METHOD 01/10/2024 10:13 AM [facility] Hemoglobin 9.6(L) 11.5 - 16.0 g/dL LAB HEMETOLOGY METHOD 01/10/2024 10:13 AM [facility] Hematocrit 30.8(L) 35.0 - 47.0 % LAB HEMETOLOGY METHOD 01/10/2024 10:13 AM [facility] MCV 90.1 79.0 - 98.0 FL LAB HEMETOLOGY METHOD 01/10/2024 10:13 AM [facility] MCH 28.1 27.0 - 32.0 pcg LAB HEMETOLOGY METHOD 01/10/2024 10:13 AM [facility] MCHC 31.2(L) 32.0 - 37.0 g/dL LAB HEMETOLOGY METHOD 01/10/2024 10:13 AM [facility] RDW 13.1 11.0 - 15.0 % LAB HEMETOLOGY METHOD 01/10/2024 10:13 AM [facility] Platelets 349 130 - 400 K/mcL LAB HEMETOLOGY METHOD 01/10/2024 10:13 AM [facility] MPV 9.7 7.0 - 11.0 FL LAB HEMETOLOGY METHOD 01/10/2024 10:13 AM [facility] NRBC 0.0 <1.0 % LAB HEMETOLOGY METHOD 01/10/2024 10:13 AM [facility] NRBC Absolute 0.00 <0.10 K/[facility] LAB HEMETOLOGY METHOD 01/10/2024 10:13 AM EST [facility] Blood Venous blood specimen / Unknown Venipuncture / Unknown 01/10/2024 7:05 AM EST 01/10/2024 10:05 AM EST us Gilson Davidson MD LAB BLOOD ORDERABLES Final Resul t [facility] [address] [place] [address], documented in this encounter Visit Diagnoses Diagnosis Type 2 diabetes mellitus without complications (CMS/HCC V24, CMS/HCC V28) Essential (primary) hypertension Unspecified essential hypertension documented in this encounter Care Teams Nylon Hot Wire Cutter Relationship Specialty Start Date End Date Kristin Bellamy MD [facility] [address] [place], [place] PCP - General Internal Medicine 11/29/19 documented as of this encounter
--- OUTSIDE RECORDS SUMMARY | 2024-05-30 12:47 | XMS_ITS | Encounter Summary ---
Author Organization [facility] Address [address] [place] [address] Care Team Providers Care Maintenance Mechanic Millwright Name Role Phone Kristin Bellamy MD Primary Care Provider [phone] Encounter Details Date Type Department Care Team (Late st Contact Info) Description 03/26/2024 Lab Requisition [facility] - Main Lab [address] [facility] [place] [address] Gilson Davidson MD [address] [place] [phone] Essential (primary) hypertension; Type 2 diabetes [...] Sedimentation rate (03/27/2024 7:55 AM EST) Pathologist [facility] Sed Rate 123(H) 0 - 30 mm/hr LAB HEMETOLOGY METHOD 03/27/2024 11:45 AM EST [facility] Blood Venous blood specimen / Unknown Venipuncture / Unknown 03/27/2024 7:55 AM EST 03/27/2024 11:01 AM EST Gilson Davidson MD LAB BLOOD ORDERABLES Final Resul t Performing Organization Address [facility]/ZIP Co de Phone Number [facility] [address] [place] [address], [place] [phone] * (ABNORMAL) C-reactive protein (03/27/2024 7:55 AM EST) [facility] C-Reactive Protein 5.12(H) <=0.50 mg/dL LAB CHEMISTRY METHOD 03/27/2024 11:56 AM EST [facility] Blood Venous blood specimen / Unknown Venipuncture / Unknown 03/27/2024 7:55 AM EST 03/27/2024 11:01 AM EST Gilson Davidson MD LAB BLOOD ORDERABLES Final Resul t [facility] [address] [place] [address], [place] [phone] * (ABNORMAL) Basic metabolic panel (03/27/2024 7:55 AM EST) [facility] Sodium 137 133 - 145 mmol/L LAB CHEMISTRY METHOD 03/27/2024 11:54 AM [facility] Potassium 4.5 3.5 - 5.5 mmol/L LAB CHEMISTRY METHOD 03/27/2024 11:54 AM [facility] Chloride 108 96 - 110 mmol/L LAB CHEMISTRY METHOD 03/27/2024 11:54 AM [facility] CO2 24 21 - 32 mmol/L LAB CHEMISTRY METHOD 03/27/2024 11:54 AM [facility] Anion Gap 5 3 - 11 LAB CHEMISTRY METHOD 03/27/2024 11:54 AM [facility] Glucose 86 70 - 100 mg/dL LAB CHEMISTRY METHOD 03/27/2024 11:54 AM [facility] BUN 24 5 - 25 mg/dL LAB CHEMISTRY METHOD 03/27/2024 11:54 AM [facility] Creatinine 1.21(H) 0.50 - 1.10 mg/dL LAB CHEMISTRY METHOD 03/27/2024 11:54 AM [facility] eGFR 51(L) >=60 mL/min/1. 73m2 LAB CHEMISTRY METHOD 03/27/2024 11:54 AM [facility] Comment:Calculation based on the??Chronic Kidney Disease Epidemiology Collaboration (CKD-EPI) equation refit??without adjustment for race. BUN/Creatinine Ratio 19.8 LAB CHEMISTRY METHOD 03/27/2024 11:54 AM [facility] Calcium 8.7 8.5 - 10.5 mg/dL LAB CHEMISTRY METHOD 03/27/2024 11:54 AM [facility] Blood Venous blood specimen / Unknown Venipuncture / Unknown 03/27/2024 7:55 AM EST 03/27/2024 11:01 AM EST us Gilson Davidson MD LAB BLOOD ORDERABLES Final Resul t [facility] [address] [place] [address], [place] [phone] * (ABNORMAL) Complete blood count (03/27/2024 7:55 AM EST) [facility] WBC 7.6 4.8 - 10.8 K/mcL LAB HEMETOLOGY METHOD 03/27/2024 11:35 AM [facility] RBC 3.60(L) 3.80 - 4.80 M/mcL LAB HEMETOLOGY METHOD 03/27/2024 11:35 AM [facility] Hemoglobin 9.7(L) 11.5 - 16.0 g/dL LAB HEMETOLOGY METHOD 03/27/2024 11:35 AM [facility] Hematocrit 30.6(L) 35.0 - 47.0 % LAB HEMETOLOGY METHOD 03/27/2024 11:35 AM [facility] MCV 84.8 79.0 - 98.0 FL LAB HEMETOLOGY METHOD 03/27/2024 11:35 AM [facility] MCH 26.9(L) 27.0 - 32.0 pcg LAB HEMETOLOGY METHOD 03/27/2024 11:35 AM [facility] MCHC 31.7(L) 32.0 - 37.0 g/dL LAB HEMETOLOGY METHOD 03/27/2024 11:35 AM [facility] RDW 14.1 11.0 - 15.0 % LAB HEMETOLOGY METHOD 03/27/2024 11:35 AM [facility] Platelets 361 130 - 400 K/mcL LAB HEMETOLOGY METHOD 03/27/2024 11:35 AM [facility] MPV 10.3 7.0 - 11.0 FL LAB HEMETOLOGY METHOD 03/27/2024 11:35 AM [facility] NRBC 0.0 <1.0 % LAB HEMETOLOGY METHOD 03/27/2024 11:35 AM [facility] NRBC Absolute 0.00 <0.10 K/mcL LAB HEMETOLOGY METHOD 03/27/2024 11:35 AM EST [facility] Blood Venous blood specimen / Unknown Venipuncture / Unknown 03/27/2024 7:55 AM EST 03/27/2024 11:01 AM EST us Gilson Davidson MD LAB BLOOD ORDERABLES Final Resul t [facility] [address] [place] [address], documented in this encounter Visit Diagnoses Diagnosis Essential (primary) hypertension Unspecified essential hypertension Type 2 diabetes mellitus without complications (CMS/HCC V24, CMS/HCC V28) documented in this encounter Care Teams Maintenance Mechanic Millwright Relationship Specialty Start Date End Date Kristin Bellamy MD [address] [facility] [address] [place], [place] PCP - General Internal Medicine 11/29/19 documented as of this encounter
--- OUTSIDE RECORDS SUMMARY | 2024-05-30 12:47 | XMS_ITS | Encounter Summary ---
Author Organization [facility] Address [address] [place] [address] Care Team Providers Care Social Media Intern Name Role Phone Kristin Bellamy MD Primary Care Provider [phone] Encounter Details Date Type Department Care Team (Late st Contact Info) Description 04/16/2024 Lab Requisition [facility] - Main Lab [address] [facility] [place] [address] Gilson Davidson MD [address] [place] [phone] Essential (primary) hypertension; Type 2 diabetes [...] (ABNORMAL) Sedimentation rate (04/17/2024 6:14 AM EST) Sed Rate 83(H) 0 - 30 mm/hr LAB HEMETOLOGY METHOD 04/17/2024 11:43 AM EST [facility] Blood Venous blood specimen / Unknown Venipuncture / Unknown 04/17/2024 6:14 AM EST 04/17/2024 10:58 AM EST Gilson Davidson MD LAB BLOOD ORDERABLES Final Resul t Performing Organization Address [facility]/ZIP Co de Phone Number [facility] [address] [place] [address], [place] [phone] * (ABNORMAL) C-reactive protein (04/17/2024 6:14 AM EST) [facility] C-Reactive Protein 0.67(H) <=0.50 mg/dL LAB CHEMISTRY METHOD 04/17/2024 2:45 PM EST [facility] Blood Venous blood specimen / Unknown Venipuncture / Unknown 04/17/2024 6:14 AM EST 04/17/2024 10:58 AM EST Gilson Davidson MD LAB BLOOD ORDERABLES Final Resul t [facility] [address] [place] [address], * (ABNORMAL) Basic metabolic panel (04/17/2024 6:14 AM EST) Pathologist [facility] Sodium 140 133 - 145 mmol/L LAB CHEMISTRY METHOD 04/17/2024 2:45 PM [facility] Potassium 4.0 3.5 - 5.5 mmol/L LAB CHEMISTRY METHOD 04/17/2024 2:45 PM [facility] Chloride 107 96 - 110 mmol/L LAB CHEMISTRY METHOD 04/17/2024 2:45 PM [facility] CO2 25 21 - 32 mmol/L LAB CHEMISTRY METHOD 04/17/2024 2:45 PM [facility] Anion Gap 8 3 - 11 LAB CHEMISTRY METHOD 04/17/2024 2:45 PM [facility] Glucose 116(H) 70 - 100 mg/dL LAB CHEMISTRY METHOD 04/17/2024 2:45 PM [facility] BUN 19 5 - 25 mg/dL LAB CHEMISTRY METHOD 04/17/2024 2:45 PM [facility] Creatinine 1.33(H) 0.50 - 1.10 mg/dL LAB CHEMISTRY METHOD 04/17/2024 2:45 PM [facility] eGFR 45(L) >=60 mL/min/1. 73m2 LAB CHEMISTRY METHOD 04/17/2024 2:45 PM [facility] Comment:Calculation based on the??Chronic Kidney Disease Epidemiology Collaboration (CKD-EPI) equation refit??without adjustment for race. BUN/Creatinine Ratio 14.3 LAB CHEMISTRY METHOD 04/17/2024 2:45 PM [facility] Calcium 8.6 8.5 - 10.5 mg/dL LAB CHEMISTRY METHOD 04/17/2024 2:45 PM [facility] Blood Venous blood specimen / Unknown Venipuncture / Unknown 04/17/2024 6:14 AM EST 04/17/2024 10:58 AM EST us Gilson Davidson MD LAB BLOOD ORDERABLES Final Resul t [facility] [address] [place] [address], [place] [phone] * (ABNORMAL) Complete blood count (04/17/2024 6:14 AM EST) [facility] WBC 7.7 4.8 - 10.8 K/mcL LAB HEMETOLOGY METHOD 04/17/2024 11:25 AM [facility] RBC 3.60(L) 3.80 - 4.80 M/mcL LAB HEMETOLOGY METHOD 04/17/2024 11:25 AM [facility] Hemoglobin 9.7(L) 11.5 - 16.0 g/dL LAB HEMETOLOGY METHOD 04/17/2024 11:25 AM [facility] Hematocrit 30.5(L) 35.0 - 47.0 % LAB HEMETOLOGY METHOD 04/17/2024 11:25 AM [facility] MCV 85.9 79.0 - 98.0 FL LAB HEMETOLOGY METHOD 04/17/2024 11:25 AM [facility] MCH 27.3 27.0 - 32.0 pcg LAB HEMETOLOGY METHOD 04/17/2024 11:25 AM [facility] MCHC 31.8(L) 32.0 - 37.0 g/dL LAB HEMETOLOGY METHOD 04/17/2024 11:25 AM [facility] RDW 15.4(H) 11.0 - 15.0 % LAB HEMETOLOGY METHOD 04/17/2024 11:25 AM [facility] Platelets 290 130 - 400 K/mcL LAB HEMETOLOGY METHOD 04/17/2024 11:25 AM [facility] MPV 10.1 7.0 - 11.0 FL LAB HEMETOLOGY METHOD 04/17/2024 11:25 AM [facility] NRBC 0.0 <1.0 % LAB HEMETOLOGY METHOD 04/17/2024 11:25 AM [facility] NRBC Absolute 0.00 <0.10 K/[facility] LAB HEMETOLOGY METHOD 04/17/2024 11:25 AM EST [facility] Blood Venous blood specimen / Unknown Venipuncture / Unknown 04/17/2024 6:14 AM EST 04/17/2024 10:58 AM EST us Gilson Davidson MD LAB BLOOD ORDERABLES Final Resul t [facility] [address] [place] [address], documented in this encounter Visit Diagnoses Diagnosis Essential (primary) hypertension Unspecified essential hypertension Type 2 diabetes mellitus without complications (CMS/HCC V24, CMS/HCC V28) documented in this encounter Care Teams Social Media Intern Relationship Specialty Start Date End Date Kristin Bellamy MD [facility] [address] PCP - General Internal Medicine 11/29/19 documented as of this encounter
--- OUTSIDE RECORDS SUMMARY | 2024-05-30 12:47 | XMS_ITS | Encounter Summary ---
Author Organization [facility] Address [address] [place] [address] Care Team Providers Care Blender Name Role Phone Kristin Bellamy MD Primary Care Provider [phone] Encounter Details Date Type Department Care Team (Late st Contact Info) Description 01/05/2024 Lab Requisition [facility] - Main Lab 299 [facility] [place] [address] Gilson Davidson MD [address] [place] [address] 204 [facility] [phone] Type 2 diabetes mellitus [...] CBC auto differential (01/05/2024 5:02 AM EST) [facility] WBC 9.0 4.8 - 10.8 K/mcL LAB HEMETOLOGY METHOD 01/05/2024 6:52 AM [facility] RBC 3.10(L) 3.80 - 4.80 M/mcL LAB HEMETOLOGY METHOD 01/05/2024 6:52 AM [facility] Hemoglobin 8.8(L) 11.5 - 16.0 g/dL LAB HEMETOLOGY METHOD 01/05/2024 6:52 AM [facility] Hematocrit 27.8(L) 35.0 - 47.0 % LAB HEMETOLOGY METHOD 01/05/2024 6:52 AM [facility] MCV 88.8 79.0 - 98.0 FL LAB HEMETOLOGY METHOD 01/05/2024 6:52 AM [facility] MCH 28.1 27.0 - 32.0 pcg LAB HEMETOLOGY METHOD 01/05/2024 6:52 AM [facility] MCHC 31.7(L) 32.0 - 37.0 g/dL LAB HEMETOLOGY METHOD 01/05/2024 6:52 AM [facility] RDW 13.0 11.0 - 15.0 % LAB HEMETOLOGY METHOD 01/05/2024 6:52 AM [facility] Platelets 370 130 - 400 K/mcL LAB HEMETOLOGY METHOD 01/05/2024 6:52 AM [facility] MPV 9.7 7.0 - 11.0 FL LAB HEMETOLOGY METHOD 01/05/2024 6:52 AM [facility] NRBC 0.0 <1.0 % LAB HEMETOLOGY METHOD 01/05/2024 6:52 AM [facility] NRBC Absolute 0.00 <0.10 K/mcL LAB HEMETOLOGY METHOD 01/05/2024 6:52 AM [facility] Neutrophils Relative 64.8 % LAB HEMETOLOGY METHOD 01/05/2024 6:52 AM [facility] Lymphocytes Relative 23.0 % LAB HEMETOLOGY METHOD 01/05/2024 6:52 AM [facility] Monocytes Relative 6.4 % LAB HEMETOLOGY METHOD 01/05/2024 6:52 AM [facility] Eosinophils Relative 3.4 % LAB HEMETOLOGY METHOD 01/05/2024 6:52 AM [facility] Basophils Relative 0.4 % LAB HEMETOLOGY METHOD 01/05/2024 6:52 AM [facility] Immature Granulocytes Relative 2.0 % LAB HEMETOLOGY METHOD 01/05/2024 6:52 AM [facility] Neutrophils Absolute 5.83 1.50 - 7.00 K/mcL LAB HEMETOLOGY METHOD 01/05/2024 6:52 AM [facility] Lymphocytes Absolute 2.07 1.00 - 5.00 K/mcL LAB HEMETOLOGY METHOD 01/05/2024 6:52 AM [facility] Monocytes Absolute 0.58 0.20 - 1.00 K/mcL LAB HEMETOLOGY METHOD 01/05/2024 6:52 AM [facility] Eosinophils Absolute 0.31 0.00 - 0.50 K/mcL LAB HEMETOLOGY METHOD 01/05/2024 6:52 AM [facility] Basophils Absolute 0.04 0.00 - 0.20 K/mcL LAB HEMETOLOGY METHOD 01/05/2024 6:52 AM [facility] Immature Granulocytes Absolute 0.18(H) 0.00 - 0.03 K/mcL LAB HEMETOLOGY METHOD 01/05/2024 6:52 AM [facility] Blood Venous blood specimen / Unknown Venipuncture / Unknown 01/05/2024 5:02 AM EST 01/05/2024 6:25 AM EST Gilson Davidson MD LAB BLOOD ORDERABLES Final Resul t Performing Organization Address City/[facility]/ZIP Co de Phone Number [facility] [address] [place] [address], [place] [phone] * Hemoglobin A1c (01/05/2024 5:02 AM EST) Hemoglobin A1C 6.4 <6.5 % LAB CHEMISTRY METHOD 01/05/2024 2:[address] [facility] Mean Bld Glu Estim. 137 mg/dL LAB CHEMISTRY METHOD 01/05/2024 2:01 PM [facility] Blood Venous blood specimen / Unknown Venipuncture / Unknown 01/05/2024 5:02 AM EST 01/05/2024 6:25 AM EST Gilson Davidson MD LAB BLOOD ORDERABLES Final Resul t Performing Organization Address City/[facility]/ZIP Co de Phone Number [facility] [address] [place] [address], [place] [phone] * (ABNORMAL) Comprehensive metabolic panel (01/05/2024 5:02 AM EST) Sodium 137 133 - 145 mmol/L LAB CHEMISTRY METHOD 01/05/2024 7:13 AM [facility] Potassium 4.5 3.5 - 5.5 mmol/L LAB CHEMISTRY METHOD 01/05/2024 7:13 AM [facility] Chloride 107 96 - 110 mmol/L LAB CHEMISTRY METHOD 01/05/2024 7:13 AM [facility] CO2 27 21 - 32 mmol/L LAB CHEMISTRY METHOD 01/05/2024 7:13 AM [facility] Anion Gap 3 3 - 11 LAB CHEMISTRY METHOD 01/05/2024 7:13 AM [facility] Glucose 114(H) 70 - 100 mg/dL LAB CHEMISTRY METHOD 01/05/2024 7:13 AM [facility] BUN 18 5 - 25 mg/dL LAB CHEMISTRY METHOD 01/05/2024 7:13 AM [facility] Creatinine 1.25(H) 0.50 - 1.10 mg/dL LAB CHEMISTRY METHOD 01/05/2024 7:13 AM [facility] eGFR 49(L) >=60 mL/min/1. 73m2 LAB CHEMISTRY METHOD 01/05/2024 7:13 AM [facility] Comment:Calculation based on the??Chronic Kidney Disease Epidemiology Collaboration (CKD-EPI) equation refit??without adjustment for race. BUN/Creatinine Ratio 14.4 LAB CHEMISTRY METHOD 01/05/2024 7:13 AM [facility] Calcium 8.8 8.5 - 10.5 mg/dL LAB CHEMISTRY METHOD 01/05/2024 7:13 AM [facility] AST (SGOT) 21 10 - 42 unit/L LAB CHEMISTRY METHOD 01/05/2024 7:13 AM [facility] ALT (SGPT) 9(L) 10 - 60 unit/L LAB CHEMISTRY METHOD 01/05/2024 7:13 AM [facility] Alkaline Phosphatase 75 42 - 121 unit/L LAB CHEMISTRY METHOD 01/05/2024 7:13 AM [facility] Total Protein 6.9 6.0 - 8.0 g/dL LAB CHEMISTRY METHOD 01/05/2024 7:13 AM [facility] Albumin 2.6(L) 3.2 - 5.0 g/dL LAB CHEMISTRY METHOD 01/05/2024 7:[address] [facility] Total Bilirubin 0.2 0.0 - 1.4 mg/dL LAB CHEMISTRY METHOD 01/05/2024 7:[address] [facility] Blood Venous blood specimen / Unknown Venipuncture / Unknown 01/05/2024 5:02 AM EST 01/05/2024 6:25 AM EST us Gilson Davidson MD LAB BLOOD ORDERABLES Final Resul t [facility] [address] [place] [address], documented in this encounter Visit Diagnoses Diagnosis Type 2 diabetes mellitus without complications (CMS/HCC V24, CMS/HCC V28) Essential (primary) hypertension Unspecified essential hypertension documented in this encounter Care Teams Blender Relationship Specialty Start Date End Date Kristin Bellamy MD [address] [place], [place] PCP - General Internal Medicine 11/29/19 documented as of this encounter
--- OUTSIDE RECORDS SUMMARY | 2024-05-30 12:47 | XMS_ITS | Encounter Summary ---
Author Organization [facility] Address [address] [place] [address] Care Team Providers Care Last Ironer Name Role Phone Kristin Bellamy MD Primary Care Provider Encounter Details Date Type Department Care Team (Late st Contact Info) Description 05/07/2024 Lab Requisition [facility] - Main Lab 299 [facility] [place] [address] Gilson Davidson MD [address] [place] [address] 204 [facility] [phone] Type 2 diabetes mellitus without complications [...] Date/Time Associated Diagnosis Comments SEDIMENTATION RATE Routine 05/08/2024 7: 53 AM [...] encounter Results * (ABNORMAL) Basic metabolic panel (05/08/2024 7:53 AM EDT) Sodium 138 133 - 145 mmol/L LAB CHEMISTRY METHOD 05/08/2024 11:59 AM [facility] Potassium 4.6 3.5 - 5.5 mmol/L LAB CHEMISTRY METHOD 05/08/2024 11:59 AM [facility] Chloride 106 96 - 110 mmol/L LAB CHEMISTRY METHOD 05/08/2024 11:59 AM [facility] CO2 25 21 - 32 mmol/L LAB CHEMISTRY METHOD 05/08/2024 11:59 AM [facility] Anion Gap 7 3 - 11 LAB CHEMISTRY METHOD 05/08/2024 11:59 AM [facility] Glucose 93 70 - 100 mg/dL LAB CHEMISTRY METHOD 05/08/2024 11:59 AM [facility] BUN 34(H) 5 - 25 mg/dL LAB CHEMISTRY METHOD 05/08/2024 11:59 AM [facility] Creatinine 1.51(H) 0.50 - 1.10 mg/dL LAB CHEMISTRY METHOD 05/08/2024 11:59 AM [facility] eGFR 39(L) >=60 mL/min/1. 73m2 LAB CHEMISTRY METHOD 05/08/2024 11:59 AM [facility] Comment:Calculation based on the??Chronic Kidney Disease Epidemiology Collaboration (CKD-EPI) equation refit??without adjustment for race. BUN/Creatinine Ratio 22.5 LAB CHEMISTRY METHOD 05/08/2024 11:59 AM [facility] Calcium 9.3 8.5 - 10.5 mg/dL LAB CHEMISTRY METHOD 05/08/2024 11:59 AM EDT [facility] Blood Venous blood specimen / Unknown Venipuncture / Unknown 05/08/2024 7:53 AM EDT 05/08/2024 10:40 AM EDT us Gilson Davidson MD LAB BLOOD ORDERABLES Final Resul t [facility] [address] [place] [address], * (ABNORMAL) Complete blood count (05/08/2024 7:53 AM EDT) WBC 7.9 4.8 - 10.8 K/mcL LAB HEMETOLOGY METHOD 05/08/2024 10:57 AM EDT [facility] RBC 4.40 3.80 - 4.80 M/[facility] LAB HEMETOLOGY METHOD 05/08/2024 10:57 AM EDT [facility] Hemoglobin 12.0 11.5 - 16.0 g/dL LAB HEMETOLOGY METHOD 05/08/2024 10:57 AM EDT [facility] Hematocrit 37.3 35.0 - 47.0 % LAB HEMETOLOGY METHOD 05/08/2024 10:[facility] MCV 85.7 79.0 - 98.0 FL LAB HEMETOLOGY METHOD 05/08/2024 10:57 AM EDT [facility] MCH 27.6 27.0 - 32.0 pcg LAB HEMETOLOGY METHOD 05/08/2024 10:57 AM EDT [facility] MCHC 32.2 32.0 - 37.0 g/dL LAB HEMETOLOGY METHOD 05/08/2024 10:57 AM [facility] RDW 15.8(H) 11.0 - 15.0 % LAB HEMETOLOGY METHOD 05/08/2024 10:57 AM EDT [facility] Platelets 425(H) 130 - 400 K/mcL LAB HEMETOLOGY METHOD 05/08/2024 10:57 AM EDT [facility] MPV 9.8 7.0 - 11.0 FL LAB HEMETOLOGY METHOD 05/08/2024 10:57 AM EDT [facility] NRBC 0.0 <1.0 % LAB HEMETOLOGY METHOD 05/08/2024 10:57 AM EDT [facility] NRBC Absolute 0.00 <0.10 K/mcL LAB HEMETOLOGY METHOD 05/08/2024 10:57 AM EDT [facility] Blood Venous blood specimen / Unknown Venipuncture / Unknown 05/08/2024 7:53 AM EDT 05/08/2024 10:40 AM EDT us Gilson Davidson MD LAB BLOOD ORDERABLES Final Resul t Performing Organization Address City/[facility]/ZIP Co de Phone Number [facility] [address] [place] [address], [place] [phone] * (ABNORMAL) Sedimentation rate (05/08/2024 7:53 AM EDT) [facility] Sed Rate 95(H) 0 - 30 mm/hr LAB HEMETOLOGY METHOD 05/08/2024 11:10 AM EDT [facility] Blood Venous blood specimen / Unknown Venipuncture / Unknown 05/08/2024 7:53 AM EDT 05/08/2024 10:40 AM EDT us Gilson Davidson MD LAB BLOOD ORDERABLES Final Resul t [facility] [address] [place] [address], [place] [phone] * C-reactive protein (05/08/2024 7:53 AM EDT) C-Reactive Protein 0.37 <=0.50 mg/dL LAB CHEMISTRY METHOD 05/08/2024 11:59 AM EDT [facility] Blood Venous blood specimen / Unknown Venipuncture / Unknown 05/08/2024 7:53 AM EDT 05/08/2024 10:40 AM EDT us Gilson Davidson MD LAB BLOOD ORDERABLES Final Resul t [facility] [address] [place] [address], [place] [phone] documented in this encounter Visit Diagnoses Diagnosis Type 2 diabetes mellitus without complications (CMS/HCC V24, CMS/HCC V28) Essential (primary) hypertension Unspecified essential hypertension documented in this encounter Care Teams Last Ironer Relationship Specialty Start Date End Date Kristin Bellamy MD [employer] PCP - General Internal Medicine 11/29/19 documented as of this encounter
--- OUTSIDE RECORDS SUMMARY | 2024-05-30 12:47 | XMS_ITS | Encounter Summary ---
Author Organization [facility] Address [address] [place] [address] Care Team Providers Care Supervisor Body Assembly Name Role Phone Kristin Bellamy MD Primary Care Provider [phone] Encounter Details Date Type Department Care Team (Late st Contact Info) Description 04/09/[address] [facility] - Main Lab 299 [facility] [place] [address] Gilson Davidson MD [address] [place] [phone] Essential (primary) hypertension; Hypothyroidism, unspecified; Type 2 diabetes mellitus without complications (CMS/HCC V24, CMS/HCC V28); Dependence on renal dialysis (CMS/HCC V24) Social History Tobacco Use Types Packs/Day Years [...] Final Resul t [facility] [address] [place] [address], * Thyroid stimulating hormone with reflex to free t4 and free t3 (04/09/2024 6:31 AM EST) TSH 1.29 0.40 - 4.00 mcIU/mL LAB CHEMISTRY METHOD 04/09/2024 11:36 AM EST [facility] Blood Venous blood specimen / Unknown Venipuncture / Unknown 04/09/2024 6:31 AM EST 04/09/2024 9:10 AM EST Gilson Davidson MD LAB BLOOD ORDERABLES Final Resul t [facility] [address] [place] [address], * (ABNORMAL) Basic metabolic panel (04/09/2024 6:31 AM EST) Sodium 142 133 - 145 mmol/L LAB CHEMISTRY METHOD 04/09/2024 11:27 AM [facility] Potassium 4.0 3.5 - 5.5 mmol/L LAB CHEMISTRY METHOD 04/09/2024 11:27 AM [facility] Chloride 109 96 - 110 mmol/L LAB CHEMISTRY METHOD 04/09/2024 11:27 AM [facility] CO2 24 21 - 32 mmol/L LAB CHEMISTRY METHOD 04/09/2024 11:27 AM [facility] Anion Gap 9 3 - 11 LAB CHEMISTRY METHOD 04/09/2024 11:27 AM [facility] Glucose 96 70 - 100 mg/dL LAB CHEMISTRY METHOD 04/09/2024 11:27 AM [facility] BUN 18 5 - 25 mg/dL LAB CHEMISTRY METHOD 04/09/2024 11:27 AM [facility] Creatinine 1.26(H) 0.50 - 1.10 mg/dL LAB CHEMISTRY METHOD 04/09/2024 11:27 AM [facility] eGFR 48(L) >=60 mL/min/1. 73m2 LAB CHEMISTRY METHOD 04/09/2024 11:27 AM [facility] Comment:Calculation based on the??Chronic Kidney Disease Epidemiology Collaboration (CKD-EPI) equation refit??without adjustment for race. BUN/Creatinine Ratio 14.3 LAB CHEMISTRY METHOD 04/09/2024 11:27 AM [facility] Calcium 8.9 8.5 - 10.5 mg/dL LAB CHEMISTRY METHOD 04/09/2024 11:27 AM [facility] Blood Venous blood specimen / Unknown Venipuncture / Unknown 04/09/2024 6:31 AM EST 04/09/2024 9:10 AM EST us Gilson Davidson MD LAB BLOOD ORDERABLES Final Resul t [facility] [address] [place] [address], * (ABNORMAL) Complete blood count (04/09/2024 6:31 AM EST) WBC 9.4 4.8 - 10.8 K/mcL LAB HEMETOLOGY METHOD 04/09/2024 10:30 AM [facility] RBC 3.60(L) 3.80 - 4.80 M/mcL LAB HEMETOLOGY METHOD 04/09/2024 10:30 AM [facility] Hemoglobin 9.5(L) 11.5 - 16.0 g/dL LAB HEMETOLOGY METHOD 04/09/2024 10:30 AM [facility] Hematocrit 30.7(L) 35.0 - 47.0 % LAB HEMETOLOGY METHOD 04/09/2024 10:30 AM [facility] MCV 84.3 79.0 - 98.0 FL LAB HEMETOLOGY METHOD 04/09/2024 10:30 AM [facility] MCH 26.1(L) 27.0 - 32.0 pcg LAB HEMETOLOGY METHOD 04/09/2024 10:30 AM [facility] MCHC 30.9(L) 32.0 - 37.0 g/dL LAB HEMETOLOGY METHOD 04/09/2024 10:30 AM [facility] RDW 14.5 11.0 - 15.0 % LAB HEMETOLOGY METHOD 04/09/2024 10:30 AM [facility] Platelets 445(H) 130 - 400 K/mcL [...] Final Resul t [facility] [address] [place] [address], [place] [phone] documented in this encounter Visit Diagnoses Diagnosis Essential (primary) hypertension Unspecified essential hypertension Hypothyroidism, unspecified Type 2 diabetes mellitus without complications (CMS/HCC V24, CMS/HCC V28) Dependence on renal dialysis (CMS/HCC V24) Renal dialysis status documented in this encounter Care Teams Supervisor Body Assembly Relationship Specialty Start Date End Date Kristin Bellamy MD [address] [place] [address] PCP - General Internal Medicine 11/29/19 documented as of this encounter
--- OUTSIDE RECORDS SUMMARY | 2024-05-30 12:47 | XMS_ITS | Encounter Summary ---
Author Organization [facility] Address [address] [place] [address] Care Team Providers Care Curam Developer Name Role Phone Kristin Bellamy MD Primary Care Provider [phone] Encounter Details Date Type Department Care Team (Late st Contact Info) Description 02/20/2024 Lab Requisition [facility] - Main Lab 299 [facility] [place] [address] Gilson Davidson MD [address] [place] [phone] Hyperlipidemia, unspecified; Other specified diabetes mellitus with other specified complication (CMS/HCC V24, CMS/HCC V28); Other acute osteomyelitis, right ankle and foot (CMS/HCC V24, CMS/HCC V28); Type 2 diabetes mellitus without complications (CMS/HCC [...] (ABNORMAL) Sedimentation rate (02/21/2024 7:35 AM EST) Sed Rate 35(H) 0 - 30 mm/hr LAB HEMETOLOGY METHOD 02/21/2024 11:29 AM EST [facility] Blood Venous blood specimen / Unknown Venipuncture / Unknown 02/21/2024 7:35 AM EST 02/21/2024 10:10 AM EST us Gilson Davidson MD LAB BLOOD ORDERABLES Final Resul t [facility] [address] [place] [address], [place] [phone] * C-reactive protein (02/21/2024 7:35 AM EST) Pathologist [facility] C-Reactive Protein <0.29 <=0.50 mg/dL LAB CHEMISTRY METHOD 02/21/2024 11:53 AM EST [facility] Blood Venous blood specimen / Unknown Venipuncture / Unknown 02/21/2024 7:35 AM EST 02/21/2024 10:10 AM EST us Gilson Davidson MD LAB BLOOD ORDERABLES Final Resul t [facility] [address] [place] [address], * (ABNORMAL) Basic metabolic panel (02/21/2024 7:35 AM EST) Sodium 138 133 - 145 mmol/L LAB CHEMISTRY METHOD 02/21/2024 11:53 AM [facility] Potassium 4.4 3.5 - 5.5 mmol/L LAB CHEMISTRY METHOD 02/21/2024 11:53 AM [facility] Chloride 106 96 - 110 mmol/L LAB CHEMISTRY METHOD 02/21/2024 11:53 AM [facility] CO2 28 21 - 32 mmol/L LAB CHEMISTRY METHOD 02/21/2024 11:53 AM [facility] Anion Gap 4 3 - 11 LAB CHEMISTRY METHOD 02/21/2024 11:53 AM [facility] Glucose 94 70 - 100 mg/dL LAB CHEMISTRY METHOD 02/21/2024 11:53 AM [facility] BUN 23 5 - 25 mg/dL LAB CHEMISTRY METHOD 02/21/2024 11:53 AM [facility] Creatinine 1.31(H) 0.50 - 1.10 mg/dL LAB CHEMISTRY METHOD 02/21/2024 11:53 AM [facility] eGFR 46(L) >=60 mL/min/1. 73m2 LAB CHEMISTRY METHOD 02/21/2024 11:53 AM [facility] Comment:Calculation based on the??Chronic Kidney Disease Epidemiology Collaboration (CKD-EPI) equation refit??without adjustment for race. BUN/Creatinine Ratio 17.6 LAB CHEMISTRY METHOD 02/21/2024 11:53 AM [facility] Calcium 9.2 8.5 - 10.5 mg/dL LAB CHEMISTRY METHOD 02/21/2024 11:53 AM [facility] Blood Venous blood specimen / Unknown Venipuncture / Unknown 02/21/2024 7:35 AM EST 02/21/2024 10:10 AM EST us Gilson Davidson MD LAB BLOOD ORDERABLES Final Resul t [facility] [address] [place] [address], * (ABNORMAL) Complete blood count (02/21/2024 7:35 AM EST) WBC 8.6 4.8 - 10.8 K/mcL LAB HEMETOLOGY METHOD 02/21/2024 11:23 AM [facility] RBC 4.20 3.80 - 4.80 M/[facility] LAB HEMETOLOGY METHOD 02/21/2024 11:23 AM [facility] Hemoglobin 11.7 11.5 - 16.0 g/dL LAB HEMETOLOGY METHOD 02/21/2024 11:23 AM [facility] Hematocrit 37.3 35.0 - 47.0 % LAB HEMETOLOGY METHOD 02/21/2024 11:23 AM [facility] MCV 88.6 79.0 - 98.0 FL LAB HEMETOLOGY METHOD 02/21/2024 11:23 AM [facility] MCH 27.8 27.0 - 32.0 pcg LAB HEMETOLOGY METHOD 02/21/2024 11:23 AM [facility] MCHC 31.4(L) 32.0 - 37.0 g/dL LAB HEMETOLOGY METHOD 02/21/2024 11:23 AM [facility] RDW 14.3 11.0 - 15.0 % LAB HEMETOLOGY METHOD 02/21/2024 11:23 AM EST [facility] Platelets 464(H) 130 - 400 K/mcL LAB HEMETOLOGY METHOD 02/21/2024 11:23 AM EST [facility] MPV 10.2 7.0 - 11.0 FL LAB HEMETOLOGY METHOD 02/21/2024 11:23 AM EST [facility] NRBC 0.0 <1.0 % LAB HEMETOLOGY METHOD 02/21/2024 11:23 AM [facility] NRBC Absolute 0.00 <0.10 K/mcL LAB HEMETOLOGY METHOD 02/21/2024 11:23 AM [facility] Blood Venous blood specimen / Unknown Venipuncture / Unknown 02/21/2024 7:35 AM EST 02/21/2024 10:10 AM EST us Gilson Davidson MD LAB BLOOD ORDERABLES Final Resul t [facility] [address] [place] [address], documented in this encounter Visit Diagnoses Diagnosis Hyperlipidemia, unspecified Other specified diabetes mellitus with other specified complication (CMS/HCC V24, CMS/HCC V28) Other acute osteomyelitis, right ankle and foot (CMS/HCC V24, CMS/HCC V28) Type 2 diabetes mellitus without complications (CMS/HCC V24, CMS/HCC V28) Essential (primary) hypertension Unspecified essential hypertension documented in this encounter Care Teams Curam Developer Relationship Specialty Start Date End Date Kristin Bellamy MD [address] [place] [address] PCP - General Internal Medicine 11/29/19 documented as of this encounter
--- OUTSIDE RECORDS SUMMARY | 2024-05-30 12:47 | XMS_ITS ---
Author Organization [facility] Address [address] [place] [address] Care Team Providers Care Surgical Processor Name Role Phone Mia Kristin Primary Care Provider Unavailab Neir Barragan Unavailable [phone] REASON FOR VISIT cx appt 11/30/23 Encounters Encounter Location Date Provider Diagnosis [facility] [address] [place] [address] 11/28/2023 Neri Tinoco Plan Of Treatment No Information Progress Notes * Olga KATDOB:1960 (63 yo F)Acc No.[id number]:11/28/2023 Patient:?Olga KAT :1960???Age:63 Y???Sex:Female Address:[address] [place], [address] * true * Date:? Generated for Printi salvador/Juan/eTransmitting on:?05/30/2024 12:47 PM EDT
--- OUTSIDE RECORDS SUMMARY | 2024-05-30 12:47 | XMS_ITS | Encounter Summary ---
Author Organization [facility] Address [address] [place] [address] Care Team Providers Care Hand Worker Name Role Phone Kristin Bellamy MD Primary Care Provider [phone] Encounter Details Date Type Department Care Team (Late st Contact Info) Description 01/16/2024 Lab Requisition [facility] - Main Lab 299 [facility] [place] [address] Gilson Davidson MD [address] [place] [address] 204 [facility] [address] Type 2 diabetes mellitus [...] (ABNORMAL) Sedimentation rate (01/17/2024 6:11 AM EST) Pathologist [facility] Sed Rate 95(H) 0 - 30 mm/hr LAB HEMETOLOGY METHOD 01/17/2024 11:56 AM EST [facility] Blood Venous blood specimen / Unknown Venipuncture / Unknown 01/17/2024 6:11 AM EST 01/17/2024 10:22 AM EST Gilson Davidson MD LAB BLOOD ORDERABLES Final Resul t Performing Organization Address [facility]/ZIP Co de Phone Number [facility] [address] [place] [address], [place] [phone] * (ABNORMAL) C-reactive protein (01/17/2024 6:11 AM EST) [facility] C-Reactive Protein 0.58(H) <=0.50 mg/dL LAB CHEMISTRY METHOD 01/17/2024 12:14 PM EST [facility] Blood Venous blood specimen / Unknown Venipuncture / Unknown 01/17/2024 6:11 AM EST 01/17/2024 10:22 AM EST Gilson Davidson MD LAB BLOOD ORDERABLES Final Resul t [facility] [address] [place] [address], [place] [phone] * (ABNORMAL) Basic metabolic panel (01/17/2024 6:11 AM EST) Pathologist [facility] Sodium 140 133 - 145 mmol/L LAB CHEMISTRY METHOD 01/17/2024 12:13 PM [facility] Potassium 4.7 3.5 - 5.5 mmol/L LAB CHEMISTRY METHOD 01/17/2024 12:13 PM [facility] Chloride 109 96 - 110 mmol/L LAB CHEMISTRY METHOD 01/17/2024 12:13 PM [facility] CO2 24 21 - 32 mmol/L LAB CHEMISTRY METHOD 01/17/2024 12:13 PM [facility] Anion Gap 7 3 - 11 LAB CHEMISTRY METHOD 01/17/2024 12:13 PM [facility] Glucose 159(H) 70 - 100 mg/dL LAB CHEMISTRY METHOD 01/17/2024 12:13 PM [facility] BUN 26(H) 5 - 25 mg/dL LAB CHEMISTRY METHOD 01/17/2024 12:13 PM [facility] Creatinine 1.27(H) 0.50 - 1.10 mg/dL LAB CHEMISTRY METHOD 01/17/2024 12:13 PM [facility] eGFR 48(L) >=60 mL/min/1. 73m2 LAB CHEMISTRY METHOD 01/17/2024 12:13 PM [facility] Comment:Calculation based on the??Chronic Kidney Disease Epidemiology Collaboration (CKD-EPI) equation refit??without adjustment for race. BUN/Creatinine Ratio 20.5 LAB CHEMISTRY METHOD 01/17/2024 12:13 PM [facility] Calcium 9.0 8.5 - 10.5 mg/dL LAB CHEMISTRY METHOD 01/17/2024 12:13 PM [facility] Blood Venous blood specimen / Unknown Venipuncture / Unknown 01/17/2024 6:11 AM EST 01/17/2024 10:22 AM EST us Gilson Davidson MD LAB BLOOD ORDERABLES Final Resul t [facility] [address] [place] [address], * (ABNORMAL) Complete blood count (01/17/2024 6:11 AM EST) [facility] WBC 7.9 4.8 - 10.8 K/mcL LAB HEMETOLOGY METHOD 01/17/2024 11:31 AM [facility] RBC 3.50(L) 3.80 - 4.80 M/mcL LAB HEMETOLOGY METHOD 01/17/2024 11:31 AM [facility] Hemoglobin 9.8(L) 11.5 - 16.0 g/dL LAB HEMETOLOGY METHOD 01/17/2024 11:31 AM [facility] Hematocrit 31.6(L) 35.0 - 47.0 % LAB HEMETOLOGY METHOD 01/17/2024 11:31 AM [facility] MCV 90.3 79.0 - 98.0 FL LAB HEMETOLOGY METHOD 01/17/2024 11:31 AM [facility] MCH 28.0 27.0 - 32.0 pcg LAB HEMETOLOGY METHOD 01/17/2024 11:31 AM [facility] MCHC 31.0(L) 32.0 - 37.0 g/dL LAB HEMETOLOGY METHOD 01/17/2024 11:31 AM [facility] RDW 13.6 11.0 - 15.0 % LAB HEMETOLOGY METHOD 01/17/2024 11:31 AM [facility] Platelets 303 130 - 400 K/mcL LAB HEMETOLOGY METHOD 01/17/2024 11:31 AM [facility] MPV 10.3 7.0 - 11.0 FL LAB HEMETOLOGY METHOD 01/17/2024 11:31 AM [facility] NRBC 0.0 <1.0 % LAB HEMETOLOGY METHOD 01/17/2024 11:31 AM [facility] NRBC Absolute 0.00 <0.10 K/[facility] LAB HEMETOLOGY METHOD 01/17/2024 11:31 AM EST [facility] Blood Venous blood specimen / Unknown Venipuncture / Unknown 01/17/2024 6:11 AM EST 01/17/2024 10:22 AM EST us Gilson Davidson MD LAB BLOOD ORDERABLES Final Resul t [facility] [address] [place] [address], documented in this encounter Visit Diagnoses Diagnosis Type 2 diabetes mellitus without complications (CMS/HCC V24, CMS/HCC V28) Essential (primary) hypertension Unspecified essential hypertension documented in this encounter Care Teams Hand Worker Relationship Specialty Start Date End Date Kristin Bellamy MD [facility] [address] [place], [place] PCP - General Internal Medicine 11/29/19 documented as of this encounter
--- OUTSIDE RECORDS SUMMARY | 2024-05-30 12:47 | XMS_ITS | Encounter Summary ---
Author Organization [facility] Address [address] [place] [address] Care Team Providers Care Historian Research Assistant Name Role Phone Kristin Bellamy MD Primary Care Provider [phone] Encounter Details Date Type Department Care Team (Late st Contact Info) Description 01/30/2024 Lab Requisition [facility] - Main Lab 299 [facility] [place] [address] Gilson Davidson MD [address] [place] [address] 204 [facility] [address] Type 2 diabetes mellitus without complications [...] Sedimentation rate (01/31/2024 6:03 AM EST) Pathologist [facility] Sed Rate 76(H) 0 - 30 mm/hr LAB HEMETOLOGY METHOD 01/31/2024 11:00 AM EST [facility] Blood Venous blood specimen / Unknown Venipuncture / Unknown 01/31/2024 6:03 AM EST 01/31/2024 10:15 AM EST us Gilson Davidson MD LAB BLOOD ORDERABLES Final Resul t Performing Organization Address [facility]/ZIP Co de Phone Number [facility] [address] [place] [address], [place] [phone] * C-reactive protein (01/31/2024 6:03 AM EST) [facility] C-Reactive Protein 0.44 <=0.50 mg/dL LAB CHEMISTRY METHOD 01/31/2024 11:40 AM EST [facility] Blood Venous blood specimen / Unknown Venipuncture / Unknown 01/31/2024 6:03 AM EST 01/31/2024 10:17 AM EST Gilson Davidson MD LAB BLOOD ORDERABLES Final Resul t Performing Organization Address City/[facility]/ZIP Co de Phone Number [facility] [address] [place] [address], [place] [phone] * (ABNORMAL) Basic metabolic panel (01/31/2024 6:03 AM EST) Pathologist [facility] Sodium 143 133 - 145 mmol/L LAB CHEMISTRY METHOD 01/31/2024 11:35 AM EST [facility] Potassium 4.0 3.5 - 5.5 mmol/L LAB CHEMISTRY METHOD 01/31/2024 11:35 AM [facility] Chloride 107 96 - 110 mmol/L LAB CHEMISTRY METHOD 01/31/2024 11:35 AM [facility] CO2 29 21 - 32 mmol/L LAB CHEMISTRY METHOD 01/31/2024 11:35 AM [facility] Anion Gap 7 3 - 11 LAB CHEMISTRY METHOD 01/31/2024 11:35 AM [facility] Glucose 116(H) 70 - 100 mg/dL LAB CHEMISTRY METHOD 01/31/2024 11:35 AM [facility] BUN 18 5 - 25 mg/dL LAB CHEMISTRY METHOD 01/31/2024 11:35 AM [facility] Creatinine 1.13(H) 0.50 - 1.10 mg/dL LAB CHEMISTRY METHOD 01/31/2024 11:35 AM [facility] eGFR 55(L) >=60 mL/min/1. 73m2 LAB CHEMISTRY METHOD 01/31/2024 11:35 AM [facility] Comment:Calculation based on the??Chronic Kidney Disease Epidemiology Collaboration (CKD-EPI) equation refit??without adjustment for race. BUN/Creatinine Ratio 15.9 LAB CHEMISTRY METHOD 01/31/2024 11:35 AM [facility] Calcium 9.2 8.5 - 10.5 mg/dL LAB CHEMISTRY METHOD 01/31/2024 11:35 AM [facility] Blood Venous blood specimen / Unknown Venipuncture / Unknown 01/31/2024 6:03 AM EST 01/31/2024 10:17 AM EST us Gilson Davidson MD LAB BLOOD ORDERABLES Final Resul t [facility] [address] [place] [address], [place] [phone] * (ABNORMAL) Complete blood count (01/31/2024 6:03 AM EST) [facility] WBC 5.8 4.8 - 10.8 K/mcL LAB HEMETOLOGY METHOD 01/31/2024 10:45 AM [facility] RBC 3.80 3.80 - 4.80 M/mcL LAB HEMETOLOGY METHOD 01/31/2024 10:45 AM [facility] Hemoglobin 10.5(L) 11.5 - 16.0 g/dL LAB HEMETOLOGY METHOD 01/31/2024 10:45 AM [facility] Hematocrit 33.7(L) 35.0 - 47.0 % LAB HEMETOLOGY METHOD 01/31/2024 10:45 AM [facility] MCV 88.7 79.0 - 98.0 FL LAB HEMETOLOGY METHOD 01/31/2024 10:45 AM [facility] MCH 27.6 27.0 - 32.0 pcg LAB HEMETOLOGY METHOD 01/31/2024 10:45 AM [facility] MCHC 31.2(L) 32.0 - 37.0 g/dL LAB HEMETOLOGY METHOD 01/31/2024 10:45 AM [facility] RDW 13.4 11.0 - 15.0 % LAB HEMETOLOGY METHOD 01/31/2024 10:45 AM [facility] Platelets 278 130 - 400 K/mcL LAB HEMETOLOGY METHOD 01/31/2024 10:45 AM [facility] MPV 10.6 7.0 - 11.0 FL LAB HEMETOLOGY METHOD 01/31/2024 10:45 AM [facility] NRBC 0.0 <1.0 % LAB HEMETOLOGY METHOD 01/31/2024 10:45 AM [facility] NRBC Absolute 0.00 <0.10 K/mcL LAB HEMETOLOGY METHOD 01/31/2024 10:45 AM EST [facility] Blood Venous blood specimen / Unknown Venipuncture / Unknown 01/31/2024 6:03 AM EST 01/31/2024 10:15 AM EST us Gilson Davidson MD LAB BLOOD ORDERABLES Final Resul t [facility] [address] [place] [address], [place] [phone] documented in this encounter Visit Diagnoses Diagnosis Type 2 diabetes mellitus without complications (CMS/HCC V24, CMS/HCC V28) Essential (primary) hypertension Unspecified essential hypertension documented in this encounter Care Teams Historian Research Assistant Relationship Specialty Start Date End Date Kristin Bellamy MD [address] [facility] [address] [place], [place] PCP - General Internal Medicine 11/29/19 documented as of this encounter
--- OUTSIDE RECORDS SUMMARY | 2024-05-30 12:48 | XMS_ITS | Encounter Summary ---
Author Organization [facility] Address [address] [place] [address] Care Team Providers Care Extractor Machine Operator Name Role Phone Kristin Bellamy MD Primary Care Provider [phone] Encounter Details Date Type Department Care Team (Late st Contact Info) Description 02/06/2024 Lab Requisition [facility] - Main Lab 299 [facility] [place] [address] Gilson Davidson MD [address] [place] [address] 204 [facility] [address] Type 2 diabetes mellitus without [...] (ABNORMAL) Sedimentation rate (02/08/2024 8:40 AM EST) Pathologist [facility] Sed Rate 107(H) 0 - 30 mm/hr LAB HEMETOLOGY METHOD 02/08/2024 11:21 AM EST [facility] Blood Venous blood specimen / Unknown Venipuncture / Unknown 02/08/2024 8:40 AM EST 02/08/2024 10:46 AM EST Gilson Davidson MD LAB BLOOD ORDERABLES Final Resul t Performing Organization Address [facility]/ZIP Co de Phone Number [facility] [address] [place] [address], [place] [phone] * (ABNORMAL) C-reactive protein (02/08/2024 8:40 AM EST) [facility] C-Reactive Protein 0.63(H) <=0.50 mg/dL LAB CHEMISTRY METHOD 02/08/2024 11:26 AM EST [facility] Blood Venous blood specimen / Unknown Venipuncture / Unknown 02/08/2024 8:40 AM EST 02/08/2024 10:46 AM EST Gilson Davidson MD LAB BLOOD ORDERABLES Final Resul t [facility] [address] [place] [address], [place] [phone] * (ABNORMAL) Basic metabolic panel (02/08/2024 8:40 AM EST) Pathologist [facility] Sodium 139 133 - 145 mmol/L LAB CHEMISTRY METHOD 02/08/2024 11:26 AM [facility] Potassium 4.8 3.5 - 5.5 mmol/L LAB CHEMISTRY METHOD 02/08/2024 11:26 AM [facility] Chloride 108 96 - 110 mmol/L LAB CHEMISTRY METHOD 02/08/2024 11:26 AM [facility] CO2 28 21 - 32 mmol/L LAB CHEMISTRY METHOD 02/08/2024 11:26 AM [facility] Anion Gap 3 3 - 11 LAB CHEMISTRY METHOD 02/08/2024 11:26 AM [facility] Glucose 131(H) 70 - 100 mg/dL LAB CHEMISTRY METHOD 02/08/2024 11:26 AM [facility] BUN 23 5 - 25 mg/dL LAB CHEMISTRY METHOD 02/08/2024 11:26 AM [facility] Creatinine 1.27(H) 0.50 - 1.10 mg/dL LAB CHEMISTRY METHOD 02/08/2024 11:26 AM [facility] eGFR 48(L) >=60 mL/min/1. 73m2 LAB CHEMISTRY METHOD 02/08/2024 11:26 AM [facility] Comment:Calculation based on the??Chronic Kidney Disease Epidemiology Collaboration (CKD-EPI) equation refit??without adjustment for race. BUN/Creatinine Ratio 18.1 LAB CHEMISTRY METHOD 02/08/2024 11:26 AM [facility] Calcium 9.3 8.5 - 10.5 mg/dL LAB CHEMISTRY METHOD 02/08/2024 11:26 AM [facility] Blood Venous blood specimen / Unknown Venipuncture / Unknown 02/08/2024 8:40 AM EST 02/08/2024 10:46 AM EST us Gilson Davidson MD LAB BLOOD ORDERABLES Final Resul t [facility] [address] [place] [address], [place] [phone] * (ABNORMAL) Complete blood count (02/08/2024 8:40 AM EST) [facility] WBC 9.9 4.8 - 10.8 K/mcL LAB HEMETOLOGY METHOD 02/08/2024 11:00 AM [facility] RBC 4.20 3.80 - 4.80 M/mcL LAB HEMETOLOGY METHOD 02/08/2024 11:00 AM [facility] Hemoglobin 11.7 11.5 - 16.0 g/dL LAB HEMETOLOGY METHOD 02/08/2024 11:00 AM [facility] Hematocrit 37.5 35.0 - 47.0 % LAB HEMETOLOGY METHOD 02/08/2024 11:00 AM [facility] MCV 88.9 79.0 - 98.0 FL LAB HEMETOLOGY METHOD 02/08/2024 11:00 AM [facility] MCH 27.7 27.0 - 32.0 pcg LAB HEMETOLOGY METHOD 02/08/2024 11:00 AM [facility] MCHC 31.2(L) 32.0 - 37.0 g/dL LAB HEMETOLOGY METHOD 02/08/2024 11:00 AM [facility] RDW 14.2 11.0 - 15.0 % LAB HEMETOLOGY METHOD 02/08/2024 11:00 AM [facility] Platelets 488(H) 130 - 400 K/mcL LAB HEMETOLOGY METHOD 02/08/2024 11:00 AM [facility] MPV 10.3 7.0 - 11.0 FL LAB HEMETOLOGY METHOD 02/08/2024 11:00 AM [facility] NRBC 0.0 <1.0 % LAB HEMETOLOGY METHOD 02/08/2024 11:00 AM [facility] NRBC Absolute 0.00 <0.10 K/[facility] LAB HEMETOLOGY METHOD 02/08/2024 11:00 AM EST [facility] Blood Venous blood specimen / Unknown Venipuncture / Unknown 02/08/2024 8:40 AM EST 02/08/2024 10:46 AM EST us Gilson Davidson MD LAB BLOOD ORDERABLES Final Resul t [facility] [address] [place] [address], documented in this encounter Visit Diagnoses Diagnosis Type 2 diabetes mellitus without complications (CMS/HCC V24, CMS/HCC V28) Essential (primary) hypertension Unspecified essential hypertension documented in this encounter Care Teams Extractor Machine Operator Relationship Specialty Start Date End Date Kristin Bellamy MD [address] [facility] [address] [place], [place] PCP - General Internal Medicine 11/29/19 documented as of this encounter
== END 2024-05-30 10:37 | disposition home or self-care (01) ==
LOC: HO.RADIR 10:36
PROVIDERS: Visit Provider Nurse Practitioner
DX: Z45.2 Encounter for adjustment and management of vascular access device (principal)
CPT/HCPCS: 36589; J2003

== ENCOUNTER 2024-08-15 13:10 | Outpatient (AMB) | payer BC, SELFPAY ==
--- OUTSIDE RECORDS SUMMARY | 2023-11-30 07:15 | XMS_ITS ---
Author Organization [facility] Address [address] [place] [address] Care Team Providers Care Bander Hand Name Role Phone Kristin Bellamy Primary Care Provider Unavailab Neri Barragan Unavailable [phone] Encounters Encounter Location Date Provider Diagnosis [address] [address] 11/30/2023 Neri Tinoco Plan Of Treatment No Information Progress Notes * Olga KATDOB:1960 (63 yo F)Acc No.[id number]:11/30/2023 Progress Note Patient: Ankush GIRON Olga Provider: Tyrone Tinoco DPM :1960 A ge:63 Y S ex:Female Date:11/30/2023 Address[id number] Pcp:Kristin Bellamy Subjective: * Chief Complaints: * * Medical History: Objective: * Vitals: Assessment: Plan: * Treatment: * Images: * The named appointment provid er may or may not be the originator of this progress note, and it is not deemed complete until electronically signed by the appointment provider. Sign off status: Pending * Provider: Tyrone Tinoco DPM Date: 1 Generated for Vicentei ng/Faxing/eTransmitting on: 0 08/15/2024 01:17 PM EDT
--- NOTE | 2024-08-15 13:11 | MHC.OFFVIS ---
Vital Signs 08/15/24 13:12 BP 132/66 Blood Pressure Location Lt brachial Position Sitting Pulse 69 Pulse Source Pulse Oximeter Pulse Oximetry (%) 94 Oxygen Delivery Method Room Air Intake Visit Reasons: Non-toxic multinodular goiter Intake Note: Patient present today for Non-toxic multinodular goiter office visit. [employer] Required: No Accompanied by: Daughter Allergies amlodipine (From Norvasc) Allergy (Mild, Verified 08/15/24 13:15) Swelling Penicillins Allergy (Mild, Verified 08/15/24 13:15) Rash erythromycin base Allergy (Unknown, Verified 08/15/24 13:15) Unknown enoxaparin (From Lovenox) Allergy (Verified 08/15/24 13:15) Vomiting heparin Allergy (Verified 08/15/24 13:15) Vomiting clindamycin (CLINDAMYCIN) Adverse Reaction (Intermediate, Verified 08/15/24 13:15) Diarrhea NephrAmine Allergy (Unknown, Uncoded 08/15/24 13:15) Swelling Medication List - Last Reconciled 08/15/24 by Daisy Salmon MD acetaminophen 650 mg HI Q4H PRN acetaminophen 650 mg PO Q4H PRN bisacodyl 10 mg HI DAILY PRN blood sugar diagnostic (FreeStyle Lite Strips) As directed three times a day blood-glucose meter (FreeStyle Lite Meter kit) As directed ceftriaxone 1 g IVPUSH Q24H cholecalciferol (vitamin D3) (Vitamin D3) 50 mcg PO DAILY ferrous sulfate 325 mg PO DAILY flash glucose sensor (FreeStyle Amber 14 Day Sensor kit) As directed glucagon HCl (Glucagon (HCl) Emergency Kit) 1 mg subcut Q20M PRN guaifenesin 200 mg PO Q4H PRN hydralazine 50 mg See Protocol PO Q6H insulin glargine (Lantus U-100 Insulin) 20 units (0.2 mL) subcut BEDTIME insulin lispro (Admelog U-100 Insulin lispro) See Protocol units subcut QIDACHS lancets (FreeStyle Lancets) Three times a day loratadine 10 mg PO DAILY losartan 100 mg See Protocol PO DAILY magnesium hydroxide (Milk of Magnesia) 30 mL PO DAILY PRN naloxone 4 mg/actuation (Narcan) 4 mg intranasal Q3M PRN omeprazole 40 mg PO DAILY@0630 ondansetron HCl 4 mg PO Q6H PRN pen needle, diabetic (BD Adela 2nd Gen Pen Needle) As directed 5 x/day rosuvastatin 5 mg PO DAILY sennosides (senna) 8.6 mg PO DAILY PRN sertraline 50 mg PO DAILY sodium phosphates 19-7 gram/118 mL (Fleet Enema) 118 mL HI DAILY PRN HPI Comments Details: 63-year-old female here today for follow up of multinodular goiter. Here with daughter Jose Luis. HPI Otherwise medical history significnt for HTN, DM, HLD, CKD, diabetic foot infection, charcot foot, depression. Currently in short term rehab for diabetic foot infection/osteomyelitis. Since summer/fall 2023, in and out of the hospital. 07/24/2023: Cervical spine CT done for fall showed a large left thyroid nodule measuring 7.5 X 6.5 X 12 cm, with a displacement of the trachea to the right and mass. 09/27/2023: Ultrasound of the thyroid, I reviewed the images myself which showed right-sided subcentimeter nodules. A left dominant nodule measuring 11.5 X 4.9 X 7.8 cm, completely solid, isoechoic nodule occupying all of the left lobe noted. 10/19/2023: Thyroid uptake and scan, images reviewed showed an asymmetrically enlarged left lobe , with a warm nodule in the superior aspect of the left lobe. 11/23/2023: FNA of the left dominant nodule came back as AUS with macro and micro follicles, with a small population of follicular cells with mild nuclear enlargement and irregularity and intranuclear inclusions. Afirma testing came back benign (risk of malignancy 4%). Known about the goiter for decades. Daughter mentiones this has noticeably increased in size over the past 2 years. Diagnosed in her 30s . Had an FNA at that time too which was benign. Hasnt followed with them for years. In and out of the hospital due to multiple issues which is why this was not addressed in the last few months. She has had recurrent falls, due to lightheadedness/dizziness. Patient currently denies heat or cold intolerance, palpitation, , mood changes, low energy, changes in appearance of eyes or vision changes, increased diaphoresis or dry skin. Lost some weight recently in the rehab. Reports anxiety but controlled and chronic mild tremors. Gets loose stools because of antibiotics. Does have hair loss. ? Patient denies any difficulty swallowing, pain on swallowing or voice changes or difficulty breathing. Patient denies any history of childhood neck radiation. Denies having ever used lithium, amiodarone or biotin supplements. Patient denies any family history of thyroid cancer . Father had Graves disease. 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 Interval history Labs 05/01/2024 show normal TSH, free T4, normal calcium, vitamin-D level 37.4 She continues on vitamin-D supplements 07/09/2024: Was evaluated by Dr. Rene Dia at [facility] in decision was made for left lobectomy She does not have a date for surgery at. Recently she feels her voice has been more for send she has been having more pressure in her neck. Denies breathing difficulties currently. Physical exam General: sitting comfortably in no acute distress HEENT: normocephalic/atraumatic Neck: large left sided thyroid mass, right thyroid lobe also palpably enlarged, Pembertons sign negative Cardiac: normal heart sounds Pulm: normal breath sounds B/L, no added breath sounds Abd: not distended, no tenderness Extremities: no edema, Laboratory Tests 12/12/17 11/10/18 02/27/20 08:20 06:26 10:55 TSH 0.61 TSH 3rd Generation 0.44 1.10 Free T4 Free T3 12/16/21 09/27/23 09:59 12:14 TSH 0.66 0.80 TSH 3rd Generation Free T4 0.95 Free T3 3.3 NM THYROID UPTAKE AND SCAN 10/19/23 CLINICAL INFORMATION: Thyroid mass. COMPARISON: Thyroid ultrasound on 09/27/2023. TECHNIQUE: Following the oral administration of 284 microcuries of I-123 sodium iodide, thyroid uptake was performed and expressed as a percentage of the administrated dose. Gamma scintillation camera images of the thyroid in the anterior and right and left anterior oblique views were obtained using a pinhole collimator following the administration of 10 mCi Tc-99m pertechnetate. The radiotracer was injected through right antecubital superficial vein without complications. FINDINGS: The uptake is 3.3% at 3 hours and 17.6% at 24 hours (Normal radioiodine uptake at 4 to 6 hours is about 5-15% and at 24 hours is 10% to 30%). The radioiodine uptake is within normal limits. The radiopertechnetate thyroid scintigram demonstrates the thyroid gland is normal in position. The right lobe of the thyroid gland appears normal in size and shape. The left lobe of the gland is asymmetrically markedly enlarged, concordant with prior ultrasound study dated 09/27/2023. There is heterogenous radiotracer distribution present throughout the entire gland with subtle focal subcentimeter area of warm nodule at the superior medial aspect of the left lobe. The trapping function appears normal. The I-123 images shows relative ill-defined photopenia at the mid to inferior pole of the abnormal enlarged left lobe of the gland consistent with a discordant nodule in this region. NM/NM thyroid w uptake IMPRESSION: 1. The radioiodine uptake is within normal limits. 2. Morphologically abnormal thyroid gland showing disproportionately enlarged heterogenous left lobe associated with a large ill-defined discordant nodule at mid to inferior pole of the left lobe. Ultrasound-guided biopsy of this nodule is recommended for histopathologic correlation. 3. Incidental note is also made of a subcentimeter warm nodule at superior medial aspect of the left lobe of the gland. Electronically signed by: Kevin Morales MD 10/21/2023 12:21 PM EDT RP US THYROID 09/27/23 CLINICAL INFORMATION: Thyroid mass. COMPARISON: Ultrasound thyroid 05/09/2013. TECHNIQUE: Linear transducer grayscale and color Doppler examination with attention to the region of the thyroid. FINDINGS: SIZE: Measurements of the thyroid lobes and nodules are given in sagittal, anteroposterior and transverse dimensions respectively. Right Thyroid Lobe: 4.3 x 1.4 x 2.1 cm, volume 6.5 mL. Parenchyma: The gland echotexture is homogeneous. Thyroid vascularity is normal. Left Thyroid Lobe: 11.5 x 4.9 x 7.8 cm, volume 231.8 mL. Parenchyma: The gland echotexture is heterogeneous. Thyroid vascularity is normal. Isthmus: 0.1 cm in maximum AP dimension. Estimated total number of nodules greater than or equal to 1 cm: 1. Airplane Refueler nodules are described as follows: 1. Location: Right lower pole. Size: 0.5 x 0.3 x 0.3 cm, volume 0.03 mL. Nodule characteristics: Composition: Mixed cystic and solid (1). Echogenicity: Isoechoic (1). Shape: Not taller than wide (0). Margins: Smooth (0). Echogenic Foci: None (0). ACR TI-RADS total points: 2 ACR TI-RADS category: 2 2. Location: Right mid. Size: 0.5 x 0.4 x 0.5 cm, volume 0.05 mL. Nodule characteristics: Composition: Mixed cystic and solid (1). Echogenicity: Isoechoic (1). Shape: Not taller than wide (0). Margins: Smooth (0). Echogenic Foci: None (0). ACR TI-RADS total points: 2 ACR TI-RADS category: 2 3. Location: Right mid. Size: 0.5 x 0.5 x 0.6 cm, volume 0.07 mL. Nodule characteristics: Composition: Solid/almost completely solid (2). Echogenicity: Isoechoic (1). Shape: Not taller than wide (0). Margins: Smooth (0). Echogenic Foci: None (0). ACR TI-RADS total points: 3 ACR TI-RADS category: 3 4. Location: Left. Size: 11.5 x 4.9 x 7.8 cm, volume 231.8 mL. Nodule characteristics: Composition: Solid/almost completely solid (2). Echogenicity: Cannot be determined (1). Shape: Not taller than wide (0). Margins: Smooth (0). Echogenic Foci: None (0). ACR TI-RADS total points: 3 ACR TI-RADS category: 3 NODES: No lymphadenopathy is seen in the tissue surrounding the thyroid gland. US/US thyroid IMPRESSION: An 11.5 cm left thyroid lobe TR 3 nodule meets ACR biopsy criteria and is amenable to ultrasound guided biopsy, if clinically indicated and not already performed. ACR TI-RADS RECOMMENDATION REFERENCE: Ultrasound-guided fine-needle aspiration, followup ultrasound, no further follow up. * TR1 (0 point) and TR2 (2 points): No FNA or follow up. * TR3 (3 points): FNA if more than or equal to 2.5 cm in maximum dimension, followup ultrasound in 1, 3 and 5 years if 1.5 to 2.4 cm in maximum dimension. * TR4 (4-6 points): FNA if more than or equal to 1.5 cm in maximum dimension, followup ultrasound in 1, 2, 3 and 5 years if 1 to 1.4 cm in maximum dimension. * TR5 (more than or equal to 7 points): FNA if more than or equal to 1 cm in maximum dimension, followup ultrasound every year for 5 years if 0.5 to 0.9 cm in maximum dimension. * TR3, TR4 or TR5 nodules that are below the size threshold for followup receive no follow up. Electronically signed by: Jesus Mejia MD 10/23/2023 08:[address] CERVICAL SPINE WITHOUT CONTRAST 07/24/23 CLINICAL INFORMATION: Fall COMPARISON: None available. TECHNIQUE: Axial images through the cervical spine without contrast. Sagittal and coronal reconstructions. This CT examination was performed using dose optimization techniques as appropriate, variously including the following: *Automated exposure control *Adjustment of mA and/or kV according to patient size (this includes techniques or standardized protocols for targeted exams where dose is matched to indication/reason for exam; i.e. extremities or head) *Use of iterative reconstruction technique DLP: 332 mGy-cm FINDINGS: Curvature of the lower cervical and upper thoracic spine to the right. Bone alignment otherwise normal. No fracture or dislocation. Normal disc spaces. Large left thyroid nodule/goiter and displacement of the trachea to the right and mass effect. This measures 7.5 x 6.5 x 12 cm. Follow-up thyroid ultrasound recommended. Visualized lung apices are clear. CT/CT cervical spine wo IV con IMPRESSION: No fracture or dislocation. Large left thyroid nodule/goiter. Follow-up thyroid ultrasound recommended. Fleischner guidelines were followed. 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 Diabetes type 2, uncontrolled Surgical History S/P thyroid biopsy Hx of cataract extraction Hx of LASIK Hx of eye surgery Hx of foot surgery Family History Father COPD (chronic obstructive pulmonary disease) Diabetes Mother Heart disease Social History Household Members: None Housing: [facility] Are you a primary pharmacist critical care to a significant other at home: No Do you presently have visiting nurse or other home services: Yes Alcohol intake: current Alcohol intake frequency: does not drink Patient Tobacco Use Status: Former Tobacco user Years Smoked: 20 years e-Cigarette/Vaping Use: Never Used Advance Directives Date on File: 12/04/23 service: No Current occupational status: employed Physical Exam Vital Signs: Last Vital Signs Pulse 69 08/15/24 13:12 BP 132/66 08/15/24 13:12 Pulse Ox 94 08/15/24 13:12 Oxygen Delivery Method Room Air 08/15/24 13:12 Assessment & Plan Assessment & Plan (1) Non-toxic multinodular goiter: Code(s): E04.2 - Nontoxic multinodular goiter Category: Medical Plan: 63-year-old female here today for follow up of nontoxic multinodular goiter, she has had a goiter/thyroid nodules since her 30s, but has not followed up in recent years, most recent thyroid ultrasound from September 2023 showing a large left dominant 12 cm nodule which is solid, and occupying all of the left lobe of the thyroid. Other subcentimeter right-sided nodules noted. She reportedly has had a biopsy of this again in her 30s of the time that it was diagnosed which was benign per patient. A preceding cervical spine CT from July 2023 also showed displacement of the trachea to the right and mass effect. Surprisingly she does not have any compressive symptoms clinically, and exam today showed a negative [place] sign. Blood work from September 2023 showed normal thyroid function. We will repeat this now since it has been some time. She underwent FNA of the left dominant nodule in November 2023 which came back as AUS, [place] category 3 with some nuclear atypia, Afirma testing came back benign (risk of malignancy 4%). Given the size of the nodule , FNA testing is less reliable as we can not possibly have obtain a sample from all parts of the nodule. In addition to that given the size of the mass is quite large with tracheal deviation and mass effect, she needs surgical evaluation Labs 05/01/2024 show normal TSH, free T4, normal calcium, vitamin-D level 37.4 She continues on vitamin-D supplements 07/09/2024: Was evaluated by Dr. Rene Dia at [facility] in decision was made for left lobectomy She does not have a date for surgery at. Recently she feels her voice has been more for send she has been having more pressure in her neck. Denies breathing difficulties currently. She is currently at a rehab, apparently the plan is short-term rehab while she heals from her diabetic foot infection. She has had a long history of Charcot foot, and now has osteomyelitis, currently on antibiotics. I described to her importance of well-controlled diabetes and overall control of infection before she can proceed with any surgery. Looks like primary care provider manages diabetes, she is on insulin. Plan: -follow up with me after surgery left lobectomy, for now tentatively we will put her on my schedule for November 2024 -we will need TSH, free T4 prior to 6 weeks postop visit, she will let me know once she has a date for surgery and that is when I will order these labs. -continue vitamin-D 1000 units daily Plan See above Coding Level of Care Code Est Pt Level 3 (14526) Diagnoses Non-toxic multinodular goiter E04.2
[2024-08-15 13:12] VITALS: BP 132/66; PULSE 69; O2SAT 94
--- OUTSIDE RECORDS SUMMARY | 2024-08-15 13:17 | XMS_ITS | Encounter Summary ---
Author Organization [facility] Address [address] [place] [address] Care Team Providers Care Aerospace Manager Name Role Phone Kristin Bellamy MD Primary Care Provider [phone] Encounter Details Date Type Department Care Team (Late st Contact Info) Description 04/30/2024 Lab Requisition [facility] - Main Lab [address] [facility] [place] [address] Gilson Davidson MD [address] [place] [phone] Type 2 diabetes mellitus without complications [...] LAB CHEMISTRY METHOD 05/01/2024 12:22 PM EDT [facility] ([facility]) [facility] Blood Venous blood specimen / Unknown Venipuncture / Unknown 05/01/2024 7:45 AM EDT 05/01/2024 10:47 AM EDT us Gilson Davidson MD LAB BLOOD ORDERABLES Final Resul t [facility] [address] [place] [address], [place] [phone] * Thyroxine free (05/01/2024 7:45 AM EDT) Free T4 1.19 0.70 - 1.80 ng/dL LAB CHEMISTRY METHOD 05/01/2024 12:22 PM EDT [facility] Blood Venous blood specimen / Unknown Venipuncture / Unknown 05/01/2024 7:45 AM EDT 05/01/2024 10:47 AM EDT Gilson Davidson MD LAB BLOOD ORDERABLES Final Resul t Performing Organization Address [facility] Co de Phone Number [facility] [address] [place] [address], [place] [phone] * Vitamin D 25 hydroxy (05/01/2024 7:45 AM EDT) Pathologist [facility] Vit D, 25-Hydroxy 37.4 30.0 - 80.0 ng/mL LAB CHEMISTRY METHOD 05/01/2024 12:22 PM EDT [facility] Blood Venous blood specimen / Unknown Venipuncture / Unknown 05/01/2024 7:45 AM EDT 05/01/2024 10:47 AM EDT us Gilson Davidson MD LAB BLOOD ORDERABLES Final Resul t Performing Organization Address City/[facility]/ZIP Co de Phone Number [facility] [address] [place] [address], [place] [phone] * Calcium, ionized (05/01/2024 7:45 AM EDT) Calcium Ionized 5.0 4.6 - 5.4 mg/dL 05/03/2024 1:34 PM EDT [facility] Comment: Test performed at [facility], [address] , [place] [address] Catalina Caldwell MD, PhD - Coding Clerks Supervisor Blood Venous blood specimen / Unknown Venipuncture / Unknown 05/01/2024 7:45 AM EDT 05/01/2024 10:47 AM EDT Gilson Davidson MD LAB BLOOD ORDERABLES Final Resul t [facility] [address] [place] [address] * Albumin (05/01/2024 7:45 AM EDT) Pathologist [facility] Albumin 3.4 3.2 - 5.0 g/dL LAB CHEMISTRY METHOD 05/01/2024 11:56 AM EDT [facility] Blood Venous blood specimen / Unknown Venipuncture / Unknown 05/01/2024 7:45 AM EDT 05/01/2024 10:47 AM EDT Gilson Davidson MD LAB BLOOD ORDERABLES Final Resul t Performing Organization Address City/[facility] Co de Phone Number [facility] [address] [place] [address], * (ABNORMAL) Basic metabolic panel (05/01/2024 7:45 AM EDT) Sodium 139 133 - 145 mmol/L LAB CHEMISTRY METHOD 05/01/2024 11:56 AM EDT [facility] Potassium 4.6 3.5 - 5.5 mmol/L LAB CHEMISTRY METHOD 05/01/2024 11:56 AM EDT [facility] Chloride 105 96 - 110 mmol/L LAB CHEMISTRY METHOD 05/01/2024 11:56 AM EDT [facility] CO2 25 21 - 32 mmol/L LAB CHEMISTRY METHOD 05/01/2024 11:56 AM EDT [facility] Anion Gap 9 3 - 11 LAB CHEMISTRY METHOD 05/01/2024 11:56 AM EDT [facility] Glucose 80 70 - 100 mg/dL LAB CHEMISTRY METHOD 05/01/2024 11:56 AM T [facility] BUN 24 5 - 25 mg/dL LAB CHEMISTRY METHOD 05/01/2024 11:[address] [facility] Creatinine 1.41(H) 0.50 - 1.10 mg/dL LAB CHEMISTRY METHOD 05/01/2024 11:56 AM EDT [facility] eGFR 42(L) >=60 mL/min/1. 73m2 LAB CHEMISTRY METHOD 05/01/2024 11:[address] [facility] Comment:Calculation based on the Chronic Kidney Disease Epidemiology Collaboration (CKD-EPI) equation refit without adjustment for race. BUN/Creatinine Ratio 17.0 LAB CHEMISTRY METHOD 05/01/2024 11:[address] [facility] Calcium 9.4 8.5 - 10.5 mg/dL LAB CHEMISTRY METHOD 05/01/2024 11:[address] [facility] Blood Venous blood specimen / Unknown Venipuncture / Unknown 05/01/2024 7:45 AM EDT 05/01/2024 10:47 AM EDT us Gilson Davidson MD LAB BLOOD ORDERABLES Final Resul t [facility] [address] [place] [address], * (ABNORMAL) Complete blood count (05/01/2024 7:45 AM EDT) WBC 7.5 4.8 - 10.8 K/mcL LAB HEMETOLOGY METHOD 05/01/2024 11:19 AM EDT [facility] RBC 4.40 3.80 - 4.80 M/mcL LAB HEMETOLOGY METHOD 05/01/2024 11:19 AM EDT [facility] Hemoglobin 12.1 11.5 - 16.0 g/dL LAB HEMETOLOGY METHOD 05/01/2024 11:[address] [facility] Hematocrit 38.8 35.0 - 47.0 % LAB HEMETOLOGY METHOD 05/01/2024 11:[address] [facility] MCV 87.8 79.0 - 98.0 FL LAB HEMETOLOGY METHOD 05/01/2024 11:[address] [facility] MCH 27.4 27.0 - 32.0 pcg LAB HEMETOLOGY METHOD 05/01/2024 11:[address] [facility] MCHC 31.2(L) 32.0 - 37.0 g/dL LAB HEMETOLOGY METHOD 05/01/2024 11:[address] [facility] RDW 15.9(H) 11.0 - 15.0 % LAB HEMETOLOGY METHOD 05/01/2024 11:[address] [facility] Platelets 386 130 - 400 K/mcL LAB HEMETOLOGY METHOD 05/01/2024 11:[address] [facility] MPV 10.4 7.0 - 11.0 FL LAB HEMETOLOGY METHOD 05/01/2024 11:[address] [facility] NRBC 0.0 <1.0 % LAB HEMETOLOGY METHOD 05/01/2024 11:[address] [facility] NRBC Absolute 0.00 <0.10 K/mcL LAB HEMETOLOGY METHOD 05/01/2024 11:[address] [facility] Blood Venous blood specimen / Unknown Venipuncture / Unknown 05/01/2024 7:45 AM EDT 05/01/2024 10:47 AM EDT us Gilson Davidson MD LAB BLOOD ORDERABLES Final Resul t [facility] [address] [place] [address], [place] [phone] * (ABNORMAL) Sedimentation rate (05/01/2024 7:45 AM EDT) Sed Rate 91(H) 0 - 30 mm/hr LAB HEMETOLOGY METHOD 05/01/2024 1:04 PM EDT [facility] Blood Venous blood specimen / Unknown Venipuncture / Unknown 05/01/2024 7:45 AM EDT 05/01/2024 10:47 AM EDT Gilson Davidson MD LAB BLOOD ORDERABLES Final Resul t Performing Organization Address [facility] Co de Phone Number [facility] [address] [place] [address], [place] [phone] * C-reactive protein (05/01/2024 7:45 AM EDT) C-Reactive Protein 0.38 <=0.50 mg/dL LAB CHEMISTRY METHOD 05/01/2024 11:56 AM EDT [facility] Blood Venous blood specimen / Unknown Venipuncture / Unknown 05/01/2024 7:45 AM EDT 05/01/2024 10:47 AM EDT Gilson Davidson MD LAB BLOOD ORDERABLES Final Resul t Performing Organization Address [facility]/ZIP Co de Phone Number [facility] [address] [place] [address], [place] [phone] documented in this encounter Visit Diagnoses Diagnosis Type 2 diabetes mellitus without complications (CMS/HCC V24, CMS/HCC V28) Essential (primary) hypertension Unspecified essential hypertension Chronic kidney disease, unspecified documented in this encounter Care Teams Aerospace Manager Relationship Specialty Start Date End Date Kristin Bellamy MD [address] [place] [address] PCP - General Internal Medicine 11/29/19 documented as of this encounter
--- OUTSIDE RECORDS SUMMARY | 2024-08-15 13:17 | XMS_ITS | Clinical Summary ---
Author Organization [address] Address [address] [place] [id number] Care Team Providers Care Caregiver Services Home Name Role Phone Kristin Bellamy MD Primary Care Provider [phone] Allergies Active Allergy Reactions Criticality Noted Date [...] foot due to diabetes mellitus (HC Code) 07/31/2017 Open wound of right foot, initial [...] on file [employer] on file Care Teams Caregiver Services Home Relationship Specialty Start Date End Date Kristin Bellamy MD PCP - General Internal Medicine 07/31/17
--- OUTSIDE RECORDS SUMMARY | 2024-08-15 13:17 | XMS_ITS | Data Portability ---
Author Organization [facility], Main Office Address [address], [address] [place] [address] Care Team Providers Care Freelance Displayer Name Role Phone TRA DAMON - 2ND FLOOR OTHER GA ROBISON Primary Care Provider [phone] Assessment No assessment recorded. Plan of Treatment [...] Address Organization Details Recorded Time Vasovagal syncope 791451132 Active 2019 ANN PALENCIA [address], [address], [place], [address], [facility] 0 10:46:40 Acute insomnia 654026933 Active 2019 ANN PALENCIA [address], [address], [place], [address], [facility] 0 12:20:58 Seasonal allergy 297659844 Active 2023 Coco Patiño NP [address], [address], [place], [address], [facility] 4 08:54:18 Constipation 15590556 Active 2023 Coco Patiño NP [address], [address], [place], [address], [facility] 4 08:55:05 Depressive disorder 34939923 Active 2023 Coco Patiño NP [address], [address], [place], [address], [facility] 4 09:18:55 Fracture of neck of femur 8865724 Active 2023 Coco Patiño NP [address], [address], [place], [address], [facility] 4 09:23:30 Non-toxic multinodular goiter 86996922 Active 2023 Kellie Padilla MD [address], [address], [place], [address], [facility] 4 15:57:10 Diabetes mellitus 45447596 Active 2017 ANN PALENCIA [address], [address], [place], [address], [facility] 8 14:10:02 Neuropathy due to diabetes mellitus 344695775 Active 2017 ANN PALENCIA [address], [address], [place], [address], [facility] 8 14:10:12 Asthma 485442600 Active 2017 ANN PALENCIA [address], [address], [place], [address], [facility] 8 14:10:19 Essential hypertension 56063824 Active 2017 ANN PAELNCIA [address], [address], [place], [address], [facility] 8 14:10:38 Diabetic foot ulcer 121982800 Active 2017 ANN PALENCIA [address], [address], [place], [address], [facility] 8 14:11:07 Charcot's joint of foot 027953889 Active 2017 ANN PALENCIA [address], [address], [place], [address], [facility] 8 14:11:40 Cellulitis 080178998 Active 2017 ANN PALENCIA [address] , [address], [place], [address], [facility] 8 14:11:51 Chronic kidney disease stage 3 465365994 Active 2017 ANN PALENCIA [address], [address], [place], [address], [facility] 8 14:12:00 Osteomyeliti s of ankle AND/OR foot 52305434 Active 2017 right plantar foot GUSTAVO PALENCIAP [address] , [address], [place], [address], [facility] 8 14:13:20 Sepsis 74103796 Active 2017 group b strep ANN PALENCIA [address], [address], [place], [address], [facility] 8 14:15:46 Mixed hyperlipidem ia 471721093 Active 2017 ANN PALENCIA [address] , [address], [place], [address], [facility] 8 14:20:07 Anemia 531391588 Active 2017 ANN PALENCIA [address], [address], [place], [address], [facility] 8 14:20:36 Gastroesopha geal reflux disease without esophagitis 183970472 Active 2017 ANN PALENCIA [address] , [address], [place], [address], [facility] 8 14:20:48 Goiter 6996631 Active 2017 ANN PALENCIA [address] , [address], [place], [address], [facility] 8 08:06:57 Problem Notes None recorded. Medical Equipment None Reported. Allergies Allergen ID Allergen Name Allergen Category Reaction Reaction Severity Criticality Documentation Date Start Date Code Code System Note Provider Name and Address Organization Details Recorded Time 85422 Product containin g penicilli n (product) medicatio n rash Not available Not available 09/01/2017 74062 8001 SNOMED FAITH GARCIA, [employer] [address] , [address], [place], [address], [facility] 8 14:02:36 52116 Medicinal product containin g cephalosp concha and acting as antibacte rial agent (product) medicatio n rash Not available Not available 09/01/2017 83776 9009 SNOMED FAITH GARCIA, [employer] [address], [address], [place], [address], [facility] 8 14:02:43 11288 erythromy cesar medicatio n Not available Not available Not available 09/01/2017 4053 RxNorm FAITH MANCUSOCLAYTON, [employer] [address], [address], [place], [address], [facility] 8 14:02:53 18856 amlodipin e medicatio n Not available Not available Not available 08/07/2019 80206 RxNorm FAITH MANCUSOCLAYTON, [employer] [address], [address], [place], [address], [facility] 0 10:39:28 39916 cat dander environme nt Not available Not available Not available 08/07/2019 [id number] UNK FAITH JOSE, [employer] [address], [address], [place], [address], [facility] 0 10:39:41 38153 Canis lupus familiari s extract environme nt Not available Not available Not available 08/07/2019 30081 4 RxNorm FAITH MACNUSOCLAYTON, [employer] EX[employer]ERT [address], [address], [place], [address], [facility] 0 10:39:52 04731 Keflex medicatio n Not available Not available Not available 08/07/2019 95794 7 RxNorm FAITH MANCUSOCLAYTON, [employer] EX[employer] [address], [address], [place], [address], [facility] 0 10:40:35 27602 clindamyc in Not available Not available Not available Not available 02/13/2024 2582 RxMarciano Padilla MD [address], [address], [place], [address], [facility] 4 16:09:35 58047 olmesarta n medicatio n Not available Not available Not available 02/13/2024 10474 4 RxMarciano Padilla MD [address], [address], [place], [address], [facility] 4 16:09:45 51422 Shellfish (substanc e) food,medi cation Not available Not available Not available 02/13/2024 25885 9006 SNOMED Kellie Padilla MD [address], [address], [place], [address], [facility] 4 16:09:49 Medications Not known to be on any medication Vitals Date Recorded Body height Body weight Body mass index (BMI) Heart rate Respiratory rate Body temperature Oxygen saturation Oxygen saturation in Arterial blood by Pulse oximetry Systolic And Diastolic Provider Name and Address Organization Details Last Updated DateTime 5 165.1 cm 99563.8 2 g 25.8 kg/m2 69 /min 18 /min 97.9 [degF] 96 % 96 % 118/69 mm[Hg] Coco Patiño NP [address], [address], [place], [address], [facility] 5 10:24:52 Date Recorded Body height Body weight Heart rate Respiratory rate Body temperature Oxygen saturation Oxygen saturation in Arterial blood by Pulse oximetry Systolic And Diastolic Provider Name and Address Organization Details Last Updated DateTime 5 165.1 cm 53741.8 2 g 76 /min 18 /min 97.2 [degF] 98 % 98 % 168/75 mm[Hg] Coco Patiño NP [address], [address], [place], [address], [facility] 5 13:55:25 Date Recorded Body height Body weight Heart rate Respiratory rate Body temperature Oxygen saturation Oxygen saturation in Arterial blood by Pulse oximetry Systolic And Diastolic Provider Name and Address Organization Details Last Updated DateTime 5 165.1 cm 70750.8 2 g 77 /min 16 /min 98.2 [degF] 97 % 97 % 159/86 mm[Hg] Coco Patiño NP [address], [facility] [address], [place], [address], [facility] 5 10:37:40 Date Recorded Body height Heart rate Respiratory rate Body temperature Oxygen saturation Oxygen saturation in Arterial blood by Pulse oximetry Systolic And Diastolic Provider Name and Address Organization Details Last Updated DateTime 5 165.1 cm 74 /min 16 /min 97.9 [degF] 96 % 96 % 141/71 mm[Hg] JOHN KAYE NP [address], [facility] [address], [place], [address], [facility] 5 10:47:40 Date Recorded Body height Heart rate Respiratory rate Body temperature Oxygen saturation Oxygen saturation in Arterial blood by Pulse oximetry Systolic And Diastolic Provider Name and Address Organization Details Last Updated DateTime 5 165.1 cm 70 /min 18 /min 97.9 [degF] 96 % 96 % 141/70 mm[Hg] JOHN KAYE NP [address], [facility] [address], [place], [address], [facility] 5 15:03:07 Social History Question Answer Notes LastModified by Organization Details LastModified Time Tobacco Smoking Status Former Smoker smoked 1 pack/week, quit in 2001 Kellie Padilla MD [address], [facility] [address], [place], [address], [facility] 01/09/2024 19:33:16 Do You Have An Advance Directive? Yes Cpr, Transfer To Hosp, Short Term Dialysis, Art Nutrition And Hydration Okay NO Intubation Signed Information not available 01/05/2024 How Much Tobacco Do You Chew? None [id number] Information not available 12/10/2019 What Is Your Code Status? DNI Information not available 01/09/2024 Where Do You Live? SingleLevelHouse Lives Alone, Has Ramp Information not available 01/09/2024 Legal Guardian? No Information not available 01/09/2024 Do You Have A Medical Power Of Commanding Officer Homicide Squad? Yes Information not available 01/09/2024 What Was The Date Of Your Most Recent Tobacco Screening? 01/05/2024 Information not available 01/05/2024 Do You Have An Out Of Hospital DNR? No Information not available 01/09/2024 What Is Your Relationship Status? Information not available 01/09/2024 How Much Tobacco Do You Smoke? No Information not available 01/09/2024 Has Tobacco Cessation Counseling Been Provided? No N/a As Pt No Longer Smokes Information not available 01/09/2024 How Many Years Have You Smoked Tobacco? 20 [id number] Information not available 12/10/2019 Sex: Unknown Functional Status Question Answer Note LastModified by Organizat ion Details LastModified Time Do you use any illicit or recreational drugs? No Information not available 01/09/2024 Do you or have you ever used any other forms of tobacco or nicotine? No Information not available 01/09/2024 What is your level of alcohol consumption? None [id number] Information not available 12/10/2019 Do you or have you ever used smokeless tobacco? Never used smokeless tobacco [id number] Information not available 12/10/2019 Do you or have you ever used e-cigarettes or vape? Never used electronic cigarettes [id number] Information not available 12/10/2019 Mental Status None recorded. Family History Nothing Reported Notes:mom may have passed fr om covid or ?stroke Medical History No medical history recorded. Gynecological HistoryNo gynecological history recorded. Obstetrics History GPAL:G 0 P 0 0 0 0 Past Encounters Encounter ID Performer Location Encounter Start Date Encounter Closed Date Diagnosis/Indication Diagnosis SNOMED-CT Code Diagnosis ICD10 Code Diagnosis Note [id number] ANN PALENCIA [address] [place] [address] MARISOL CANDY [address] 09/01/2017 13:57:54 09/14/2017 14:32:28 Sepsis 44917225 A40.1 PT/OT eval and treatvanco 750 mg IV qdfollow vanco troughsfol low up with IDhickman in right chestmonit or for resolution Osteomyeli tis of ankle AND/OR foot 34122924 M86.8X7 pain controlID follow upoxycodon e 5 mg q 6 hrs prntylenol 650 mg q 6 hrs prnvanco 750 mg IV qd follow vanco troughs zarate in right chest monitor for resolution Essential hypertension 33070419 I10 lasix 80 mg bidnifedip ine 60 mg qdmonitor b/p and labs Diabetes mellitus 629242 09 E11.69 humalog SSIlantus 36 units qdmonitor fbzsbciZ2a 7.3 currentlym onitor for s/s of hypo/hyper glycemia Anemia 524230055 D50.8 ferrous sulfate 325 mg bidvitamin C 500 mg qdfollow labstransf use as needed Gastroesop hageal reflux disease without esophagitis 328018459 K21.9 not currently on medication monitor for symptoms Mixed hyperlipidemia 267 963903 E78.2 atorvastat in 20 mg qdfollow labs Diabetic foot ulcer 3710 86015 E11.42 wound md quiles and treat-here wound dsg as orderedmon itor for worsening infection Chronic ki dney disease stage 3 567664152 N18.3 avoid nephrotoxi c medication smonitor labs Neuropathy due to diabetes mellitus 958965721 E11.42 pain controlmon itor Asthma 123695669 J45.99 8 albuterol 2 puffs q 4 hrs prnloratad ine 10 mg qdmonitor respirator y status [id number] ANN PALENCIA [address] [address] 09/08/2017 07:54:29 09/14/2017 15:12:58 Sepsis 61956776 A40.1 PT/OT eval and treatvanco 750 mg IV qdfollow vanco troughsfol low up with IDhickman in right chestmonit or for resolution Osteomyeli tis of ankle AND/OR foot 94680233 M86.8X7 pain controlID follow upoxycodon e 5 mg q 6 hrs prntylenol 650 mg q 6 hrs prnvanco 750 mg IV qd follow vanco troughs zarate in right chest monitor for resolution Essential hypertension 05150353 I10 lasix 40 mg bidnifedip ine 60 mg qdmonitor b/p and labs Diabetes mellitus 391956 09 E11.69 humalog SSIlantus 36 units qdmonitor glucosemon itor for s/s of hypo/hyper glycemia Anemia 573225616 D50.8 ferrous sulfate 325 mg bidvitamin C 500 mg qdfollow labstransf use as needed Gastroesop hageal reflux disease without esophagitis 332910534 K21.9 not currently on medication monitor for symptoms Mixed hyperlipidemia 267 808031 E78.2 atorvastat in 20 mg qdfollow labs Diabetic foot ulcer 3710 09377 E11.42 wound dsg as orderedmon itor for worsening infectionf ollow up with surgeon Chronic dney disease stage 3 863183280 N18.3 avoid nephrotoxi c medication smonitor labs Neuropathy due to diabetes mellitus 951127006 E11.42 pain controlmon itor Asthma 213087933 J45.99 8 albuterol 2 puffs q 4 hrs prnloratad ine 10 mg qdmonitor respirator y status Goiter 3888673 E04.8 patient states PCP is aware in communitym onitor [id number] Ceci Crenshaw NP, S [facility] [address] [place] [address] 09/09/2017 19:34:48 09/12/2017 03:47:51 Osteomyelitis of ankle AND/OR foot 51883370 M86.9 f/u dr fernando 2 weeks elevate leg pack right lateral debrided site with 1/2 packing and adaptic to plantar site then cover with 4/4 and wrap with kerlix daily continue iv abx, pain control continue to monitor site Diabetic foot ulcer 3710 54725 E11.40 continue to monitor f/s assess site daily [id number] Gilson Davidson MD [facility] [address] [place] [address] 09/10/2017 12:42:06 09/14/2017 15:26:11 Diabetic foot ulcer 841007907 L97.513 see HPIfollow surgical recsgoal is to prevent amputation wound care [facility] for infection and pain controltit rate vanco Osteomyeli tis of ankle AND/OR foot 71712641 M86.8X7 see HPIcontinu e vancomonit or infectionm onitor renal function in patient with baseline renal failure Chronic ki dney disease stage 3 682191824 N18.3 monitor renal function on IV vanco Essential hypertension 30491121 I10 lasix 40 mg bidmonitor bp and labsmonito r and titrate meds as needed Diabetes mellitus 713542 09 E11.9 monitor glucoseten ds to rise if infection getting worse Anemia 545016689 D50.1 acute on chronic anemiarequ ired recent tx with 2 units pRBCrepeat cbc and monitor need for further tx Gastroesop hageal reflux disease without esophagitis 041039194 K21.9 monitor for sx control [id number] ANN PALENCIA [address] [place] [id number] 09/18/2017 17:19:21 10/10/2017 12:42:53 Osteomyelitis of ankle AND/OR foot 80667339 M86.8X7 pain controlID follow upoxycodon e 5 mg q 6 hrs prntylenol 650 mg q 6 hrs prnvanco 500 mg IV qd probioticf ollow vanco troughs zarate in right chest monitor for resolution Diabetic foot ulcer 3710 61771 E11.42 wound dsg as orderedmon itor for worsening infectionf ollow up with surgeonsee s in house wound mddebrided todaywill start zosyn 3.375 mg iv q 6 hrs [id number] ANA GEORGE [address] [address] 09/27/2017 15:11:19 10/10/2017 13:25:30 Osteomyelitis of ankle AND/OR foot 09376415 M86.8X7 pain controlID follow upoxycodon e 5 mg q 6 hrs prntylenol 650 mg q 6 hrs prnvanco 500 mg IV qd probiotic- add Imodium 2 gm q 6 PRN due to loose stoolsNurs ing will monitor for question of c. difffollow vanco troughs zarate in right chest monitor for resolution Diabetic foot ulcer 3710 35819 E11.42 wound dsg as orderedmon itor for worsening infectionf ollow up with surgeonsee s in house wound mdwill see her again on mondaycont inue zosyn 3.375 mg iv q 6 hrs [id number] ANN PALENCIA [place] [address] [address] 08/07/2019 09:53:22 08/09/2019 10:17:32 Vasovagal syncope 652409110 R55 resolved monitor Anemia 845617355 D50.8 ferrous sulfate 325 mg qdvitamin C 500 mg qd cyanocobal campbell 100 mcg qd follow labs labs are coming up slowly Chronic ki dney disease stage 3 393737182 N18.3 avoid nephrotoxi c medication smonitor labs Diabetes mellitus 019543 09 E11.21 toujeo (lantus) 55 units qd SSI lispro 16 units tid monitor glucosemon itor for s/s of hypo/hyper glycemia Asthma 718873787 J45.99 8 albuterol 2 puffs qid prnloratad ine 10 mg qdmonitor respirator y status Essential hypertension 02240931 I10 lasix 40 mg qdirbesart an 300 mg qdmonitor b/p and labs Mixed hyperlipidemia 267 029290 E78.2 atorvastat in 20 mg qdfollow labs Gastroesop hageal reflux disease without esophagitis 470256809 K21.9 not currently on medication monitor for symptoms Removal of internal fixation device 96177277 Z47.2 s/p removal right foot hardware prior to syncopal episode aquacel ag to wound bed, zinc to cheryl wound and cover with dsd monitor for s/s of infection Goiter 3156723 E04.8 patient saw endocrine in hospital and wants no further workupmoni tor Acute insomnia 506498387 G47.09 melatonin 5 mg q hs monitor sleep [id number] Gilson Davidson MD [address] [place] [address] 08/12/2019 14:04:40 08/19/2019 15:16:58 Vasovagal syncope 013028020 R55 see HPImonitor bp Removal of internal fixation device 23723433 Z47.2 see HPIs/p hardware removal RLEre-eval by ortho and wound cauterized with silver nitratemon itor sitefollow ortho recsNWB till cleared by orthoPT OT eval and treat Anemia 819586495 D50.8 post op anemiamoni tor cbc and need for tx Chronic ki dney disease stage 3 840456916 N18.3 baseline CRF stage 3monitor renal functionav oid nephrotoxi c medication snephro consult prn Diabetes mellitus 540771 09 E11.21 lantus increased to 55 units qd on morning of admit to hospital continue insulin SSmonitor need to adjust Essential hypertension 91556737 I10 lasix 40 mg qdirbesart an 300 mg qdmonitor bp and renal functionti trate prn Mixed hyperlipidemia 267 081096 E78.2 lipitor 20 mg qdcontinue Gastroesop hageal reflux disease without esophagitis 921782749 K21.9 carrying dxstable at baselinemo nitor for sx Goiter 8326974 E04.8 by report refuses further w/u [id number] ANN PALENCIA [place] [address] [place] [address] 08/13/2019 10:31:44 08/19/2019 15:20:39 Vasovagal syncope 871792249 R55 resolved follow up with PCP Removal of internal fixation device 40478639 Z47.2 s/p removal right foot hardware prior to syncopal episode aquacel ag to wound bed, zinc to cheryl wound and cover with dsd follow up with PCP/shahid anne on 08/20/19 Anemia 457710865 D50.8 ferrous sulfate 325 mg qdvitamin C 500 mg qd cyanocobal campbell 100 mcg qd follow up with PCP Chronic ki dney disease stage 3 462654267 N18.3 follow up with PCP Diabetes mellitus 438435 09 E11.21 toujeo (lantus) 55 units qd sliding scale insulin lispro 16 units tid follow up with PCP Asthma 938113687 J45.99 8 albuterol 2 puffs qid prnloratad ine 10 mg qdfollow up with PCP Essential hypertension 46612941 I10 lasix 40 mg qdirbesart an 300 mg qdfollow up with PCP Mixed hyperlipidemia 267 398372 E78.2 atorvastat in 20 mg qdfollow up with PCP Gastroesop hageal reflux disease without esophagitis 792017010 K21.9 not currently on medication follow up with PCP Goiter 9146174 E04.8 patient saw endocrine in hospital and wants no further workupfoll ow up with PCP Acute insomnia 427369558 G47.09 melatonin 5 mg q hs follow up with PCP [id number] Coco Patiño NP [facility] [address] [place] [address] 01/05/2024 08:14:27 01/08/2024 10:24:50 Chronic kidney disease stage 3 051674687 N18.30 avoid nephrotoxi c medication smonitor labs weekly on wednesdays Diabetes mellitus 750832 09 E11.21 *(note doses adjusted in hospital)S SI lisprolant us 20 units sc qhsmonitor glucose qid acmonitor for s/s of hypo/hyper glycemia Essential hypertension 35935144 I10 *hydralazi ne 25 mg po bid (added in hosp)losar aguilera 50 mg qd (reduced from 100 mg qd at home prior)murray tor b/p and labs and adjust as needed Mixed hyperlipidemia 267 044104 E78.2 rosuvastat in 5mg qdfollow labs Gastroesop hageal reflux disease without esophagitis 620186614 K21.9 not currently on medication monitor for symptoms Goiter 3793541 E04.8 hx ofpt requesting records from [facility] regarding left goiter biopsy done on 11/23/23mo nitor for results Anemia 897998413 D50.8 325 mg ferrous sulfate q monthmonit or for s/s of anemia and cbc wednesdays Seasonal allergy 0861162 04 J30.2 claritin 10 mg qdmonitor Constipation 62970140 K5 9.00 senna 8.6 mg qd prnhouse bowel protocol Osteomyeli tis of ankle AND/OR foot 02053408 M86.8X7 cefazolin q 8 hours until 02/11probi otic 1 tab po bid until 02/11left right plantar lateral foot: ns, pat dry, skip prep to periwound, lightly pack with AG, cover with gauze, abd and wrap dailywound consult for carefu up with [facility] infectious diseasecbc , bmp, crp, esr weekly on wednesdays PT/OT eval and treattyl prn pain, does not want pain medication s Cellulitis 184850253 L03 .90 see above osteo Diabetic foot ulcer 3710 45189 E11.42 see above osteo Neuropathy due to diabetes mellitus 866466363 E11.42 see abovemonit or Acute kidney injury 1466 9001 N17.9 resolved in hosp with reduction of losartan and ivfavoid nephrotoxi c medsmonito r bmp weekly on mon Depressive disorder 3548 9007 F32.A sertraline 50 mg po qd Pressure i njury of sacral region of back 277853763 L89.159 pressure injury to buttocks stage 2( 2 areas of denuded skin and red cheryl area)ns wash, pat dry, and barrier creamcushi onoff load pressuremo nitor for changes Fracture o f neck of femur 9356623 S72.002A surgical repair done on 11/28/23, healing in nicely well approx and no sutures or staplesfu with ortho prn for recent surgical repair of femur fx Jan 09 at 1pm Epsteinmon itor for s/s of infection Charcot's joint of foot 024996252 M14.679 see osteo for wound above [id number] Kellie Padilla MD [address] [address] 01/09/2024 12:36:44 01/10/2024 10:34:09 Osteomyelitis of ankle AND/OR foot 03553177 M86.8X7 Continue cefazolin IV q 8 hrs until 02/11 to complete 6 wk course and probiotic 1 tab BID until 02/18 (7 days after end of abx)F/U with [facility] ID as planned.Mo nitor CBC/BMP/ES R/CRP weekly on Wednesdays and fax to ID.For pain pt wants only APAP 650 mg q 4 hrs prn. Diabetic foot ulcer 3710 80944 L97.519 Continue wound care as ordered.Mo nitor for healing. Fracture o f neck of femur 1598578 S72.002A Recovering well from hemiarthro plasty on 11/28.PT/O T as above.F/U with ortho in 01/09 as planned. Pressure i njury of sacral region of back 187251991 L89.159 Continue wound care as ordered.Mo nitor for healing. Chronic ki dney disease stage 3 056832412 N18.31 Back to baseline.C ontinue to avoid nephrotoxi c meds as able.Monit or labs.Renal consult prn. Diabetes mellitus 811064 09 E11.21 Sugars in good control since here.HgA1C 6.4Continu e lantus 20U qd and SSIMonitor fingerstic ks TID and HgA1C q 3 months. Essential hypertension 51269659 I10 Continues to be in poor control.It appears that losartan was not transcribe d from d/c summary to admission orders here, has only been getting hydralazin e 25 mg BID since hereWill restart losartan 50 mg qd (lowered due to CKD).Monit or BP and labs. Mixed hyperlipidemia 267 049360 E78.2 Continue rosuvastat in 5 mg qdMonitor labs as outpt. Gastroesop hageal reflux disease without esophagitis 472734793 K21.9 No current sxs, on no meds.Monit or for GI sxs. Goiter 7934544 E04.8 Bx done 11/23/23 was benign.F/U with endo as planned. Anemia 265913935 D50.8 Mild at baseline, likely due to CKD.Worsen ed after hip surgery as expected.C ontinue FeSO4 325 mg qdMonitor labs Seasonal allergy 9617679 04 J30.2 No current sxs.Contin ue loratadine 10 mg qdMonitor sxs. Constipation 18680731 K5 9.09 Continue bowel meds as ordered.Mo nitor bowel function. Neuropathy due to diabetes mellitus 486569733 E11.42 On no meds specifical ly for neuropathy .Continue APAP as above.Murray tor sxs. Depressive disorder 3548 9007 F33.8 Mood good today.Cont inue sertraline 50 mg qdMonitor mood.Psych consult prn. Asthenia 40472695 R53.1 Remains deconditio jamal.Needs PT/OT for strengthen ing, balance, gait training, safety and function.C ontinue fall precaution s.Monitor for safety. Non-toxic multinodular goiter 09202425 E04.2 Bx done 11/23/23 was benign.F/U with endo as planned. [id number] Coco Patiño NP [address] [address] 01/18/2024 12:22:55 01/19/2024 11:21:15 Osteomyelitis of ankle AND/OR foot 23804608 M86.8X7 labs improving this weekContin uecefazoli n IV q 8 hrs until 02/11 to complete 6 wk courseprob iotic 1 tab BID until 02/18 (7 days after end of abx)F/U with [facility] as planned.Mo nitor CBC/BMP/ES R/CRP weekly on Wednesdays and fax to ID.For pain pt wants only APAP 650 mg q 4 hrs prn. Diabetic foot ulcer 3710 48201 L97.519 Continue wound care as ordered.Mo nitor for healing. Asthenia 98313310 R53.1 Remains deconditio jamal.Needs PT/OT for strengthen ing, balance, gait training, safety and function.C ontinue fall precaution s.Monitor for safety. Fracture o f neck of femur 7532221 S72.002A Recovering well from hemiarthro plasty on 11/28.PT/O T as above.F/U with ortho in 01/09 as planned. ? if she went to appt? Pressure i njury of sacral region of back 099405835 L89.159 Continue wound care as ordered.Mo nitor for healing. Essential hypertension 10185640 I10 Continues to be in poor control, with elevated bpsconthyd ralazine 25 mg BID01/17 losartan will increase to 100 mg po qd (home dose)as her bp has been high and venkatesh is improving slightlyMo nitor BP and labs. Chronic ki dney disease stage 3 856542758 N18.31 Back to baseline.C ontinue to avoid nephrotoxi c meds as able.Monit or labs.Renal consult prn. Diabetes mellitus 728937 09 E11.21 Sugars in good control since here.HgA1C 6.4Continu elantus 20U qd and SSIMonitor fingerstic ks TID and HgA1C q 3 months. Gastroesop hageal reflux disease without esophagitis 029431571 K21.9 No current sxs, on no meds.01/17 will start zofran and omeprazole for vomiting and nausea latelyMoni tor for GI sxs. Anemia 174044565 D50.8 Mild at baseline, likely due to CKD.Worsen ed after hip surgery as expected.C ontinue FeSO4 325 mg qdMonitor labs Depressive disorder 5148 9007 F33.8 Mood good today.Cont inue sertraline 50 mg qdMonitor mood.Psych consult prn. Recurrent falls 82522342 2 R29.6 reports loosing balance and fall on 01/16 without injurylike ly related to right foot ulcer/bruce ncePT OT eval and treatmonit or and supportive caresafety precaution s [id number] JOHN KAYE, FRE[place] [address] [address] 01/25/2024 10:41:10 01/26/2024 14:22:33 Osteomyelitis of ankle AND/OR foot 93634995 M86.8X7 VS, BS, labs stable.Con tinue:cefa zolin IV q 8 hrs until 02/11 to complete 6 wk courseprob iotic 1 tab BID until 02/18 (7 days after end of abx)APAP prn painF/U with [facility] as planned.Mo nitor CBC/BMP/ES R/CRP weekly on Wednesdays and fax to ID. Diabetic foot ulcer 3710 08225 L97.519 Continue wound care as ordered.Mo nitor for healing. Essential hypertension 15501605 I10 Better control the past week.Nola nue:Hydral azine 25 mg BIDLosarta n 100 mg po qd (increased 01/17, home dose, dose reduced due to VENKATESH)Monito r BP and labs. Asthenia 53498545 R53.1 Remains deconditio jamal.Needs PT/OT for strengthen ing, balance, gait training, safety and function.C ontinue fall precaution s.Monitor for safety. Recurrent falls 29314676 2 R29.6 reports loosing balance and fall on 01/16 without injurylike ly related to right foot ulcer/bruce ncePT OT eval and treatmonit or and supportive caresafety precaution s Fracture o f neck of femur 3411678 S72.002A Recovering well from hemiarthro plasty on 11/28.PT/O T as above.F/U with ortho as planned.AP AP prn painMonito r CSM Pressure i njury of sacral region of back 145495627 L89.159 Continue wound care as ordered.Mo nitor for healing. Chronic ki dney disease stage 3 994732506 N18.31 Back to baseline.C ontinue to avoid nephrotoxi c meds as able.Monit or labs.Renal consult prn. Diabetes mellitus 129168 09 E11.21 Sugars in good control since here.HgA1C 6.4Continu elantus 20U qd and SSIMonitor fingerstic ks TID and HgA1C q 3 months. Gastroesop hageal reflux disease without esophagitis 407135104 K21.9 No current sxs, on no meds.01/17 will start zofran and omeprazole for vomiting and nausea latelyMoni tor for GI sxs. Anemia 445201447 D50.8 Mild at baseline, likely due to CKD.Worsen ed after hip surgery as expected.C ontinue FeSO4 325 mg qdMonitor labs Depressive disorder 3548 9007 F33.8 Mood good today.Cont inue sertraline 50 mg qdMonitor mood.Psych consult prn. COVID-19 135169020 U07.1 Just tested positive this am.Resp. sx., mostly mild.Plan -isolation , rest, fluidsMoni tor VS satsSuppor tive care with APAP, robitussin PRNClosely monitor need for O2, dexamethas one, mucinex, molnupirav ir [id number] Coco Patiño NP [address] [address] 02/01/2024 11:35:11 02/02/2024 12:48:48 COVID-19 208282385 U07.1 covid positve on 11/24remai ns testing positive and on isolationi solation, rest, fluidsMoni tor vitalsSupp ortive care with APAP, robitussin PRNClosely monitor need for O2, dexamethas one, mucinex, molnupirav ir Osteomyeli tis of ankle AND/OR foot 19493087 M86.8X7 labs improvingC ontinue:ce fazolin IV q 8 hrs until 02/11 to complete 6 wk courseprob iotic 1 tab BID until 02/18 (7 days after end of abx)APAP prn painF/U with [facility] as planned.Mo nitor CBC/BMP/ES R/CRP weekly on Wednesdays and fax to ID. Diabetic foot ulcer 8854 54107 L97.519 Continue wound care as ordered.Mo nitor for healing. Essential hypertension 57234151 I10 bp stable with increase of losartan back to home doseContin ue:Hydrala zine 25 mg BIDLosarta n 100 mg po qd (increased 01/17, home dose, dose reduced due to VENKATESH in hosp)Monit or BP and labs. Asthenia 65962199 R53.1 Remains deconditio jamal.Needs PT/OT for strengthen ing, balance, gait training, safety and function.C ontinue fall precaution s.Monitor for safety. Recurrent falls 07131056 2 R29.6 reports loosing balance and fall on 01/16 without injury, no further fallslikel y related to right foot ulcer/bruce ncePT OT eval and treatmonit or and supportive caresafety precaution s Fracture o f neck of femur 3201949 S72.002A Recovering well from hemiarthro plasty on 11/28.PT/O T as above.F/U with ortho as planned.AP AP prn painMonito r CSM Pressure i njury of sacral region of back 886613864 L89.159 Continue wound care as ordered.Mo nitor for healing. Chronic ki dney disease stage 3 239779678 N18.31 Back to baseline.C ontinue to avoid nephrotoxi c meds as able.Monit or labs.Renal consult prn. Diabetes mellitus 109025 09 E11.21 Sugars in good control since here. 114-171 stableHgA1 C 6.4Continu elantus 20U qd and SSIMonitor fingerstic ks TID and HgA1C q 3 months. Gastroesop hageal reflux disease without esophagitis 403694153 K21.9 No current sxs, on no meds.cont zofran and omeprazole for vomiting and nausea latelycons ider decreasing zofran and omeprazole in the near futureMoni tor for GI sxs. Anemia 203415077 D50.8 Mild at baseline, likely due to CKD.Worsen ed after hip surgery as expected.C ontinueFeS O4 325 mg qdMonitor labs Depressive disorder 3548 9007 F33.8 Mood good today.Cont inuesertra line 50 mg qdMonitor mood.Psych consult prn. [id number] Kellie Padilla MD [address] [address] 02/13/2024 16:07:50 02/15/2024 13:31:01 Essential hypertension 77725130 I10 Was good for awhile, now SBP [...] labs. Osteomyeli tis of ankle AND/OR foot 61024218 M86.8X7 ESR increased last week, but CRP good. Could be due to foot wound.Comp leted abx yest, continue probiotic 1 tab BID until 02/18 (7 days after end of abx)F/U with [facility], Dr. Carlton, [phone] 22, will have nursing call on 02/14 to see if she needs f/u.Monito r CBC/BMP/ES R/CRP weekly on Wednesdays and fax to ID.Continu e APAP 650 mg q 4 hrs prn for pain. [id number] Coco Patiño NP [address] [address] 02/16/2024 11:54:27 02/19/2024 13:17:38 Essential hypertension 01333983 I10 seems to have intermitte nt high bpwith recent adjustment sconthydra lazine 50 mg qhshydrala zine 25 mg po amlosartan 100 mg qd.Monitor BP and labs.cont adjusting prn Osteomyeli tis of ankle AND/OR foot 79033991 M86.8X7 labs and infection resolvingC ompleted abx IVcontinue probiotic 1 tab BID until 02/18 (7 days after end of abx)F/U with [facility], Dr. Carlton, [phone] 22Monitor CBC/BMP/ES R/CRP weekly on Wednesdays and fax to ID.? if see followed upContinue APAP 650 mg q 4 hrs prn for pain.monit or for s/s of infection Diabetic foot ulcer 3710 27928 L97.519 Continue wound care as ordered.Mo nitor for healing. Asthenia 54397573 R53.1 Remains deconditio jamal.Needs PT/OT for strengthen ing, balance, gait training, safety and function.C ontinue fall precaution s.Monitor for safety. Fracture o f neck of femur 4564456 S72.002A Recovering well from hemiarthro plasty on 11/28.PT/O T as above.F/U with ortho as planned.AP AP prn painMonito r CSM Pressure i njury of sacral region of back 153512417 L89.159 Continue wound care as ordered.Mo nitor for healing. Chronic ki dney disease stage 3 409397668 N18.31 Back to baseline.C ontinue to avoid nephrotoxi c meds as able.Monit or labs.Renal consult prn. Diabetes mellitus 459713 09 E11.21 Sugars in good control since here. stableHgA1 C 6.4Continu elantus 20U qd and SSIMonitor fingerstic ks TID and HgA1C q 3 months. Gastroesop hageal reflux disease without esophagitis 046716248 K21.9 No current sxs, on no meds.cont omeprazole qdzofran 4 mg po prn q 6Monitor for GI sxs. Anemia 262577050 D50.8 Mild at baseline, likely due to CKD. stableWors ened after hip surgery as expected.C ontinueFeS O4 325 mg qdMonitor labs Depressive disorder 3548 9007 F33.8 Mood good today.Cont inuesertra line 50 mg qdMonitor mood.Psych consult prn. Non-toxic multinodular goiter 95095601 E04.2 hx ofpt requesting records from [facility] regarding left goiter biopsy done on 11/23/23, monitor for results and re request today [id number] Coco Patiño NP [address] [address] 02/19/2024 08:19:03 02/21/2024 14:18:17 Essential hypertension 06642280 I10 seems to have intermitte nt high bpwith recent adjustment scont02/18/ increase hydralazin e to 50 mg bidcontlos abigail 100 mg qd.Monitor BP and labs.cont adjusting prn Osteomyeli tis of ankle AND/OR foot 75579707 M86.8X7 labs and infection resolvingC ompleted abx IVcontinue probiotic 1 tab BID until 02/18 (7 days after end of abx)F/U with [facility], Dr. Carlton, [phone] 22Monitor CBC/BMP/ES R/CRP weekly on Wednesdays and fax to ID.? if see followed upContinue APAP 650 mg q 4 hrs prn for pain.monit or for s/s of infection remove picc line, second request Diabetic foot ulcer 3710 60650 L97.519 Continue wound care as ordered.Mo nitor for healing. Asthenia 59609128 R53.1 Remains deconditio jamal.Needs PT/OT for strengthen ing, balance, gait training, safety and function.C ontinue fall precaution s.Monitor for safety. Fracture o f neck of femur 9777810 S72.002A Recovering well from hemiarthro plasty on 11/28.PT/O T as above.F/U with ortho as planned.AP AP prn painMonito r CSM Pressure i njury of sacral region of back 237663478 L89.159 Continue wound care as ordered.Mo nitor for healing. Chronic ki dney disease stage 3 807987276 N18.31 Back to baseline.C ontinue to avoid nephrotoxi c meds as able.Monit or labs.Renal consult prn. Diabetes mellitus 991698 09 E11.21 Sugars in good control since here. stableHgA1 C 6.4Continu elantus 20U qd and SSIMonitor fingerstic ks TID and HgA1C q 3 months. Gastroesop hageal reflux disease without esophagitis 771434316 K21.9 No current sxs, on no meds.cont omeprazole qdzofran 4 mg po prn q 6Monitor for GI sxs. Anemia 961319200 D50.8 Mild at baseline, likely due to CKD. stableWors ened after hip surgery as expected.C ontinueFeS O4 325 mg qdMonitor labs Depressive disorder 3548 9007 F33.8 Mood good today.Cont inuesertra line 50 mg qdMonitor mood.Psych consult prn. Non-toxic multinodular goiter 26354454 E04.2 hx ofpt requesting records from [facility] regarding left goiter biopsy done on 11/23/23, monitor for results and re request today02/18 request biopsy [id number] Coco Patiño NP [place] [address] [facility] [address] 02/22/2024 08:40:30 02/23/2024 10:26:46 Essential hypertension 10288523 I10 seems to have intermitte nt high bpwith recent adjustment s improvingc onthydrala zine to 50 mg bidlosarta n 100 mg qd.Monitor BP and labs.cont adjusting prn Osteomyeli tis of ankle AND/OR foot 13084757 M86.8X7 labs and infection resolvingC ompleted abx IVcontinue probiotic 1 tab BID until 02/18 (7 days after end of abx)F/U with [facility], Dr. Carlton, [phone] 22Monitor CBC/BMP/ES R/CRP weekly on Wednesdays and fax to ID.? if see followed upContinue APAP 650 mg q 4 hrs prn for pain.monit or for s/s of infectionp icc removed on 02/18 Diabetic foot ulcer 3710 79017 L97.519 Continue wound care as ordered.Ross donovan for healing. Asthenia 18883389 R53.1 Remains deconditio jamal.Needs PT/OT for strengthen ing, balance, gait training, safety and function.C ontinue fall precaution s.Monitor for safety. Fracture o f neck of femur 0509433 S72.002A Recovering well from hemiarthro plasty on 11/28.PT/O T as above.F/U with ortho as planned.AP AP prn painfu with Dr schmidt on 02/22, family to take her Pressure i njury of sacral region of back 692843110 L89.159 Continue wound care as ordered.Ross donovan for healing. Chronic ki dney disease stage 3 129206734 N18.31 Back to baseline.C ontinue to avoid nephrotoxi c meds as able.Monit or labs.Renal consult prn. Diabetes mellitus 969375 09 E11.21 Sugars in good control since here. stableHgA1 C 6.4Continu elantus 20U qd and SSIMonitor fingerstic ks TID and HgA1C q 3 months. Gastroesop hageal reflux disease without esophagitis 930255049 K21.9 No current sxs, on no meds.cont omeprazole qdzofran 4 mg po prn q 6Monitor for GI sxs. Anemia 431112664 D50.8 Mild at baseline, likely due to CKD. stableWors ened after hip surgery as expected.C ontinueFeS O4 325 mg qdMonitor labs Depressive disorder 3548 9007 F33.8 Mood good today.Cont inuesertra line 50 mg qdMonitor mood.Psych consult prn. Non-toxic multinodular goiter 38363579 E04.2 hx ofpt requesting records from [facility] regarding left goiter biopsy done on 11/23/23, results obtained and benign.she does have large left neck goiter and needs fu02/22/24 [facility] [place] [facility] [place] today [id number] JOHN KAYE NP [address] [address] 02/28/2024 13:35:19 02/29/2024 16:23:48 Essential hypertension 51642368 I10 Still running on the higher sideCurren tly on:hydrala zine to 50 mg bid - just increased 02/18 - consider tid dosinglosa rtan 100 mg qd.Monitor BP and labs.cont adjusting prn Non-toxic multinodular goiter 40457722 E04.2 hx ofpt requesting records from [facility] regarding left goiter biopsy done on 11/23/23, results obtained and benign.she does have large left neck goiter and needs fu02/22/24 referral to [facility] [place] Osteomyeli tis of ankle AND/OR foot 18994545 M86.8X7 labs and infection resolvingC ompleted abx IV and probioticF /U with [facility], Dr. Carlton, [phone] 22Monitor CBC/BMP/ES R/CRP weekly on Wednesdays and fax to ID.Continu e APAP 650 mg q 4 hrs prn for pain.monit or for s/s of infectionp icc removed on 02/18 Diabetic foot ulcer 3710 66093 L97.519 Continue wound care as ordered.Mo nitor for healing. Asthenia 56589285 R53.1 Remains deconditio jamal.Needs PT/OT for strengthen ing, balance, gait training, safety and function.C ontinue fall precaution s.Monitor for safety. Fracture o f neck of femur 2524823 S72.002A Recovering well from hemiarthro plasty on 11/28.PT/O T as above.F/U with ortho as planned.AP AP prn painfu with Dr schmidt on 02/22, requesting office note for review Pressure i njury of sacral region of back 541400362 L89.159 Continue wound care as ordered.Mo nitor for healing. Chronic ki dney disease stage 3 252983216 N18.31 Back to baseline.C ontinue to avoid nephrotoxi c meds as able.Monit or labs.Renal consult prn. Diabetes mellitus 766766 09 E11.21 Sugars in good control since here. stableHgA1 C 6.4Continu elantus 20U qd and SSIMonitor fingerstic ks TID and HgA1C q 3 months. Gastroesop hageal reflux disease without esophagitis 447525255 K21.9 No current sxs, on no meds.cont omeprazole qdzofran 4 mg po prn q 6Monitor for GI sxs. Anemia 801718699 D50.8 Mild at baseline, likely due to CKD. stableWors ened after hip surgery as expected.C ontinueFeS O4 325 mg qdMonitor labs Depressive disorder 3548 9007 F33.8 Mood good today.Cont inuesertra line 50 mg qdMonitor mood.Psych consult prn. [id number] Coco Patiño NP [address] [address] 02/29/2024 13:36:58 03/01/2024 15:08:25 Essential hypertension 62528389 I10 BP high for some time now even with med increases, 165/80 and running on high side still increase hydralazin e from 50 mg bid to tidcontlos abigail 100 mg qd.Monitor BP and labs.cont adjusting prn Non-toxic multinodular goiter 71638281 E04.2 hx ofpt requesting records from [facility] regarding left goiter biopsy done on 11/23/23, results obtained and benign with less than 4% malignancy rateshe does have large left neck goiter and needs fu02/22/24 referral [facility] [place] Osteomyeli tis of ankle AND/OR foot 58147512 M86.8X7 labs and infection resolvingf ollowed by wound team hereComple mikal abx IV and probioticF /U with [facility], Dr. Carlton, [phone] 22Monitor CBC/BMP/ES R/CRP weekly on Wednesdays and fax to ID.Continu eAPAP 650 mg q 4 hrs prn for pain.monit or for s/s of infectionp icc removed on 02/18 and no fevers, chills or s/s of infection Diabetic foot ulcer 3710 54758 L97.519 Continue wound care as ordered.Mo nitor for healing. Asthenia 55234539 R53.1 Remains deconditio jamal.Needs PT/OT for strengthen ing, balance, gait training, safety and function.C ontinue fall precaution s.Monitor for safety. Fracture o f neck of femur 2012768 S72.002A Recovering well from hemiarthro plasty on 11/28.PT/O T as above.F/U with ortho as planned.AP AP prn painfu with Dr schmidt on 02/22, requesting office note for review, pt states no new changes Pressure i njury of sacral region of back 505024494 L89.159 Continue wound care as ordered.Mo nitor for healing. Chronic ki dney disease stage 3 951210310 N18.31 Back to baseline.C ontinue to avoid nephrotoxi c meds as able.Monit or labs.Renal consult prn. Diabetes mellitus 781341 09 E11.21 Sugars in good control since here. stable 130s latelyHgA1 C 6.4Continu elantus 20U qd and SSIMonitor fingerstic ks TID and HgA1C q 3 months. [id number] Gilson Davidson MD [address] [place] [address] 03/06/2024 10:15:20 03/07/2024 11:03:13 Essential hypertension 06846741 I10 hydralazin e recently increasedm onitor bp and titrate if remains elevated Osteomyeli tis of ankle AND/OR foot 04321165 M86.8X7 completed IV abxstill with right foot ulcer requiring wound carecoordi panchito with ID and update with concerns Asthenia 87567656 R53.1 ambulating short distance with walker and therapyhow ever still requiring 24/7 carePatien t lives alone [facility] however social work is assisting with [facility] Chronic ki dney disease stage 3 111887541 N18.31 monitor renal functionav oid nephrotoxi c meds as ablenephro consult prn [id number] Coco Patiño NP [address] [address] 03/15/2024 08:39:43 03/26/2024 13:38:06 Osteomyelitis of ankle AND/OR foot 50339087 M86.8X7 completed IV abxstill with right foot ulcer requiring wound care team and now new malodor and callous open with drainage start doxycyclin e 100 mg po bid x 10days with probiotic and reevalfu with ID and update with concerns prnwound team to follow for debridemen t and local carefollow bmp and cbc weekly Asthenia 71947915 R53.1 ambulating short distance with walker and therapyhow ever still requiring 24/7 carePatien t lives alone currently unable to be cared for in communitys ocial work to cont for safe dc plan with ready, she is currently requiring abx for foot infection and has open wound to right charcot foot causing balance issues Essential hypertension 09655232 I10 bps 130s post meds with recent increases of meds belowhydra lazine 50 mg po tidlosarta n 200 mg po qdmonitor bp and titrate if remains elevated Chronic ki dney disease stage 3 123405454 N18.31 monitor renal functionav oid nephrotoxi c meds as ablenephro consult prn Nausea, vo miting and diarrhea 6516149 R11.2 resolved with mild case of nausea, vomiting, and diarrheazo andreina and immodium prnencoura ge po fluidsmoni tor for need for iVF [id number] JOHN KAYE NP [address] [address] 03/27/2024 09:18:24 03/28/2024 13:24:31 Osteomyelitis of ankle AND/OR foot 04722564 M86.8X7 completed IV abxstill with right foot ulcer - referred back to wound care due to decline in status.Com pleted doxycyclin e x 10 dWound debrided 03/26 - now with granular wound bed.Contin ue collagen and alginate dressing qd.VSS except for elevated BPfu with ID and update with concerns prnfollow bmp and cbc weekly Essential hypertension 96293092 I10 BP still runs on the higher side.Curre ntly on:hydrala zine 50 mg po tid -> increase to qid/q 6 hrslosarta n 200 mg po qdmonitor bp and titrate if remains elevated Asthenia 61889013 R53.1 ambulating short distance with walker and therapyhow ever still requiring / carePatien t lives alone currently unable to be cared for in communitys ocial work to [facility] for safe dc plan with ready, she is currently requiring abx for foot infection and has open wound to right charcot foot causing balance issues Chronic ki dney disease stage 3 451718164 N18.31 monitor renal functionav oid nephrotoxi c meds as ablenephro consult prn Non-toxic multinodular goiter 86604568 E04.2 hx ofpt requesting records from [facility] regarding left goiter biopsy done on 11/23/23, results obtained and benign.she does have large left neck goiter and needs fu02/22/24 [facility] [place] [facility] [place], appt. set for 04/19 Diabetic foot ulcer 3710 73151 L97.519 Continue wound care as ordered. see above.Murray tor for healing. Fracture o f neck of femur 9394900 S72.002A Recovering well from hemiarthro plasty on 11/28.F/U with ortho as planned.AP AP prn pain Diabetes mellitus 870790 09 E11.21 Sugars in good control since here. stableHgA1 C 6.4Continu elantus 20U qd and SSIMonitor fingerstic ks TID and HgA1C q 3 months. Gastroesop hageal reflux disease without esophagitis 505949227 K21.9 No current sxs, on no meds.cont omeprazole qdzofran 4 mg po prn q 6Monitor for GI sxs. Anemia 915045321 D50.8 Mild at baseline, likely due to CKD. stableWors ened after hip surgery as expected.C ontinueFeS O4 325 mg qdMonitor labs Depressive disorder 3548 9007 F33.8 Mood good today.Cont inuesertra line 50 mg qdMonitor mood.Psych consult prn. [id number] JOHN KAYE NP [address] [address] 04/09/2024 13:52:03 04/11/2024 11:34:06 Chronic osteomyelitis of right foot [id number] 332174 M86.671 See HPINow on rocephin 1 gm qd x 6 weeks[address]Add probiotic bid x 6 wksCBC, BMP, ESR, CRP q mondayM onitor Diabetic foot ulcer 3710 75142 L97.519 With cellulitis and chronic osteoConti nue Dakins and DCD dailyRefer to Wound team for eval and tx.No surgical interventi on at this timeContin ue abx. as above.Cont inue protein supplement Add MVI with minerals daily Cellulitis of right foot [id number] 0405366 L03.115 As aboveConti nue rocephin x 6 wksTRend VS and labs Chronic ki dney disease stage 3 917635238 N18.31 [facility] in hosp.monit or renal function q mondayA RB held in hospital, given fluids.elidia id nephrotoxi c meds as ablenephro consult prn Essential hypertension 54237698 I10 BP still runs on the higher side.Curre ntly on:hydrala zine 50 mg po q 6 hrslosarta n 100 mg po qdmonitor bp and labs and titrate if remains elevated Diabetes mellitus 097193 09 E11.21 Sugars in good control since hawhVkL7V 6.4Continu elantus 20U qd and SSIMonitor fingerstic ks TID and HgA1C q 3 months. Non-toxic multinodular goiter 70269994 E04.2 hx ofpt requesting records from [facility] regarding left goiter biopsy done on 11/23/23, results obtained and benign.she does have large left neck goiter and needs fu02/22/24 referral to [facility], appt. set for 3 Constipation 33999644 K5 9.09 stools al little soft, ? r/t abx.Not on scheduled laxativesA dding probiotic bid x 6 wksMonitor Anemia 272973846 D50.8 ContinueFe SO4 325 mg qdMonitor labs Depressive disorder 3548 9007 F33.8 Mood good today.Cont inuesertra line 50 mg qdMonitor mood.Psych consult prn. [id number] RENATO SOTELO, KIKE [address] [place] [address] 04/17/2024 14:22:22 04/18/2024 16:15:20 Chronic osteomyelitis of right foot [id number] 193241 M86.671 See HPICurrent ly on rocephin 1 gm qd x 6 weeks.Hick man in placed.Con tinue probiotic bid x 6 wks while is on antibiotic .CBC, BMP, ESR, CRP q monday. Wbc and ESR stable.Mon itor Diabetic foot ulcer 3710 97603 L97.519 With cellulitis and chronic osteoConti nue collagen and silver alginate, and DCD dailyWound team following for treatment. No surgical interventi on at this timeContin ue abx. as above.Cont inue protein supplement Continue MVI with minerals daily Cellulitis of right foot 0836068611 3949901 L03.115 As aboveConti nue rocephin x 6 wksTrend VS and labs Chronic ki dney disease stage 3 174858802 N18.31 [facility] in hosp.monit or renal function q mondayA RB held in hospital, given fluids.Now back on ARBavoid nephrotoxi c meds as ablenephro consult prn Essential hypertension 43069036 I10 BP still runs on the higher side.Curre ntly on:hydrala zine 50 mg po q 6 hrslosarta n 100 mg po qdmonitor bp and labs and titrate if remains elevated Diabetes mellitus 297469 09 E11.21 Sugars in good control since iaqqEwE2E 6.4Continu elantus 20U qd and SSIMonitor fingerstic ks TID and HgA1C q 3 months. Non-toxic multinodular goiter 04168991 E04.2 hx ofpt requesting records from [facility] regarding left goiter biopsy done on 11/23/23, results obtained and benign.she does have large left neck goiter and needs fu02/22/24 referral to [facility], appt this Monday (04/19/24) Constipation 73737065 K5 9.09 Denies constipati on or loose stool.Is on antibiotic and probiotic bid x 6 wksMonitor Anemia 668900258 D50.8 ContinueFe SO4 325 mg qdMonitor labs Depressive disorder 3548 9007 F33.8 Mood good today.Cont inuesertra line 50 mg qdMonitor mood.Psych consult prn. [id number] Coco Patiño NP [address] [address] 04/24/2024 08:34:43 04/25/2024 14:23:02 Chronic osteomyelitis of right foot 3364293877 849464 M86.671 See HPICurrent ly on rocephin 1 gm qd x 6 weeks.Hick man to right chest in place.Cont inue probiotic bid x 6 wks while is on antibiotic end on BC, BMP, ESR, CRP q monday. Wbc and ESR stable.Mon itor Diabetic foot ulcer 3710 08938 L97.519 With cellulitis and chronic osteoConti nue local care with collagen and silver alginate, and DCD daily per wound teamNo surgical interventi on at this timeContin ue abx. as above.Cont inue protein supplement Continue MVI with minerals daily Cellulitis of right foot 3108301892 2771216 L03.115 As aboveConti nue rocephin x 6 wks as aboveTrend VS and labs Chronic ki dney disease stage 3 162642537 N18.31 [facility] in hosp.monit or renal function q monday with bmpARB held in hospital, given fluids.Now back on ARBavoid nephrotoxi c meds as ablenephro consult prn Essential hypertension 34198171 I10 BP still runs on the higher side.Curre ntly on:hydrala zine 50 mg po q 6 hrslosarta n 100 mg po qdmonitor bp and labs and titrate if remains elevatedwi ll hold off on med changes for now with recent refusal of abx this ambp daily while on abx Diabetes mellitus 337780 09 E11.21 Sugars in good control in generalHgA 1C 7.8 on 04/09/24Con tinuelantu s 20U qd and SSIMonitor fingerstic ks TID and HgA1C q 3 months. Non-toxic multinodular goiter 87684819 E04.2 hx ofleft goiter biopsy done on 11/23/23, results obtained and benign done [facility] to [facility] does have large left neck goiter and needs fuon 04/19 saw [facility] and rec:Referr al to Dr Jacques for 12 cm thyroid nodule with tracheal deviation. Nursing to fu on this and make appt.Labs alb, bmp, calcium, free t 4, tsh and vit d. Can do here on 05/01 and fax to office at [facility] 10 weekss on 06/28/[address] salmon at [address] [place] [address], [address], [place] Constipation 52578599 K5 9.09 Denies constipati on today, but has hx with bowel urgeIs on antibiotic and probiotic bid x 6 wkswill get KUB todayMonit or Loose stool 340597783 R1 9.5 with complaint that she has [...] pending from todayimmod ium prnzofran prnmonitor closely [id number] Coco Patiño NP [facility] [address] [address] 04/25/2024 15:37:16 04/29/2024 13:20:33 Constipation 24371755 K59.09 KUB from 04/24 shows stool burdenlike ly urge to defecate is from constipati on04/24dc immodiumst art mom 60 cc and bisacodyl 10 mg supp nowMonitor for resolution [id number] Coco Patiño NP [facility] [address] [address] 04/29/2024 15:24:56 05/01/2024 10:30:35 Constipation 08052494 K59.09 seems resolvedKU B from 04/24 shows stool burden, had mom and bisacodyl with reliefrema ins on senna 8.6 mg po q 24 hours prnsee is not open to sched laxativesM onitor for resolution Chronic os teomyelitis of right foot 0113022516 372208 M86.671 See HPICurrent ly on rocephin 1 gm qd x 6 weeks to complete on ickman to right chest in place.Cont inue probiotic bid x 6 wks while is on antibiotic end on BC, BMP, ESR, CRP q monday. Wbc and ESR stable.Mon itor Cellulitis of right foot 2157704862 7112500 L03.115 As aboveConti nue rocephin x 6 wks as aboveTrend VS and labs Diabetic foot ulcer 3710 23971 L97.519 With cellulitis and chronic osteoConti nue local care with collagen and silver alginate, and DCD daily per wound teamNo surgical interventi on at this timeContin ue abx. as above.Cont inue protein supplement Continue MVI with minerals daily Non-toxic multinodular goiter 94522719 E04.2 hx ofleft goiter biopsy done on 11/23/23, results obtained and benign done prior to admission here at [facility] does have large left neck goiter and needs fuon 04/19 saw [facility] and rec:Referr al to Dr Jacques for 12 cm thyroid nodule with tracheal deviation. Nursing to fu on this and make appt., will have them fu todayLabs alb, bmp, calcium, free t 4, tsh and vit d. Can do here on 05/01 [facility] on 06/28[facility] salmon at [address] [place] [address] drive, [address], [place] Chronic ki dney disease stage 3 551143615 N18.31 [facility] in hosp.monit or renal function q monday with bmpARB held in hospital, given fluids.Now back on ARBavoid nephrotoxi c meds as ablenephro consult prn Essential hypertension 29026992 I10 BP still runs on the higher side.Curre ntly on:hydrala zine 50 mg po q 8 hrslosarta n 100 mg po qdmonitor bp and labs and titrate if remains elevatedwi ll hold off on med changes for now with recent refusal of abx this ambp daily while on abx [id number] Coco Patiño NP [facility] [address] [place] [address] 05/06/2024 14:53:18 05/08/2024 15:13:51 Chronic osteomyelitis of right foot 7532403957 270327 M86.671 See HPICurrent ly on rocephin 1 gm qd x 6 weeks to complete on ickman to right chest in place.05/06 cannot use heparin now and refuses-st ates allergywil l flush with 10 cc NS tid for 1.5 weeks until 05/21 zarate d'cdContin ue probiotic bid x 6 wks while is on antibiotic end on 05/21Wbc and ESR stable and improvingM onitorvita ls dailyCBC, BMP, ESR, CRP q monday. Cellulitis of right foot 2364868693 8612292 L03.115 As above Diabetic foot ulcer 3710 08131 L97.519 With cellulitis and chronic osteo as aboveConti nue local care with collagen and silver alginate, and DCD daily per wound teamNo surgical interventi on at this timeContin ue abx. as above.Cont inue protein supplement Continue MVI with minerals daily Essential hypertension 11595733 I10 BP stable latelycont hydralazin e 50 mg po q 8 hrslosarta n 100 mg po qdmonitor bp and labs and titrate if remains elevatedwi ll hold off on med changes for now with recent refusal of abx this ambp daily while on abx Non-toxic multinodular goiter 89642654 E04.2 hx ofleft goiter biopsy done on 11/23/23, results obtained and benign done prior to admission here at [facility] does have large left neck goiter and needs fuon 04/19 [facility] ogneelima and rec:Referr al to Dr [...] 06/28/[address] salmon at [address] [place] [address], [address], [facility] dney disease stage 3 764892954 N18.31 [facility] in hosp.monit or renal function q monday with bmpARB held in hospital, given fluids.Now back on ARBavoid nephrotoxi c meds as ablenephro consult prn Anemia 231784456 D50.8 Mild at baseline, likely due to CKD. stableWors ened after hip surgery as expected.C ontinueFeS O4 325 mg qd(nsg reports skipping iron at times)will encourage need for ironMonito r labs [id number] JOHN KAYE NP [address] [place] [address] 05/09/2024 09:33:11 05/13/2024 11:28:22 Chronic osteomyelitis of right foot 9314831666 990015 M86.671 See HPICurrent ly on rocephin 1 gm qd as well as probiotic x 6 weeks to complete on 48Hickman to right chest in place, flushing with saline, pt. ref. heparin.VS SLabs stableFoll owvitals dailyCBC, BMP, ESR, CRP q monday. Cellulitis of right foot 0925236132 8480868 L03.115 As above Diabetic foot ulcer 3710 93475 L97.519 With cellulitis and chronic osteo as aboveConti nue local care per wound teamNo surgical interventi on at this time.Nola nue abx. as above.Cont inue protein supplement Continue MVI with minerals dailyWorki ng with rehab, currently NWB. Essential hypertension 80813955 I10 VSSconthyd ralazine 50 mg po q 8 hrslosarta n 100 mg po qdmonitor Non-toxic multinodular goiter 93294657 E04.2 hx ofleft goiter biopsy done on 11/23/23, results obtained and benign (done prior to admission here at [facility])Seen by [facility]o 04/19, referral made to Dr Jacques for 12 cm thyroid nodule with tracheal deviation. Labs 05/01 (alb, bmp, calcium, free t 4, tsh and vit d) - nsg. to have sent results to [facility] EndoF/U 06/28/[address] Salmon at [address] [place] [address], [address], [facility] dney disease stage 3 041509597 N18.31 [facility] in hosp. - ARB held, given IVF with improvemen tMonitorin g renal function q monday - labs remaining stable.Now back on ARBavoid nephrotoxi c meds as ablenephro consult prn Anemia 904406839 D50.8 Mild at baseline, likely due to CKD.CBC stableCont inue FeSO4 325 mg qd, encourage compliance , can consdier reducing to qodMonitor labs Abnormal weight loss 267 871148 R63.4 187 -> 163.5 lbs if readings correct.St aff states she is eating meals and snacksDoes not look grossly thinnerPla n - weights 2x wk and record [id number] JOHN KAYE NP [facility] [place] [address] [place] [address] 05/16/2024 13:32:07 05/20/2024 08:10:29 Abnormal weight loss 784935366 R63.4 187 -> 163.5 lbs if readings correct.Co ntinue to monitorSta ff states she is eating meals and snacksDoes not look grossly thinnerPla n - weights 2x wk and record Chronic os teomyelitis of right foot 4082175781 063907 M86.671 See HPICurrent ly on rocephin 1 gm qd as well as probiotic x 6 weeks to complete on 48Hickman to right chest in place, flushing with saline, pt. ref. heparin.VS SLabs stableFoll owvitals dailyCBC, BMP, ESR, CRP q monday. Cellulitis of right foot 3444296055 7652526 L03.115 As above Diabetic foot ulcer 3710 73633 L97.519 With cellulitis and chronic osteo as aboveConti nue local care per wound teamNo surgical interventi on at this time.Nola nue abx. as above.Cont inue protein supplement Continue MVI with minerals dailyWorki ng with rehab, currently NWB. Essential hypertension 95663697 I10 VSSconthyd ralazine 50 mg po q 8 hrslosarta n 100 mg po qdmonitor Non-toxic multinodular goiter 33805058 E04.2 hx ofleft goiter biopsy done on 11/23/23, results obtained and benign (done prior to admission here at [facility])Seen by [facility]o 04/19, referral made to Dr Jacques for 12 cm thyroid nodule with tracheal deviation. Labs 05/01 (alb, bmp, calcium, free t 4, tsh and vit d) - nsg. to have sent results to [facility] EndoF/U 06/28/[address] Salmon at [address] [place] [address], [address], [facility] dney disease stage 3 586753346 N18.31 [facility] in hosp. - ARB held, given IVF with improvemen tMonitorin g renal function q monday - labs remaining stable.Now back on ARBavoid nephrotoxi c meds as ablenephro consult prn Anemia 318283992 D50.8 Mild at baseline, likely due to CKD.CBC stableCont inue FeSO4 325 mg qd, encourage compliance , can consider reducing to qodMonitor labs [id number] JOHN KAYE, [facility] [address] [address] 05/23/2024 09:18:47 05/27/2024 12:40:18 Abnormal weight loss 049464956 R63.4 187 -> 163.5 lbs if readings correct.Co ntinue to monitorSta ff states she is eating meals and snacksDoes not look grossly thinnerPla n - weights 2x wk and record - has been stable past 3 wks. Chronic os teomyelitis of right foot 1568396295 352503 M86.671 See HPIJust completed rocephin 1 gm qd as well as probiotic x 6 weeks on 48Hickman to right chest in place, flushing with saline, pt. ref. heparin. Refer back to [facility] for zarate removal.VS S - monitorLab s stable - continue to follow weekly for now since abx. stopped. Cellulitis of right foot 4640922115 8156272 L03.115 As above Diabetic foot ulcer 3710 51935 L97.519 With cellulitis and chronic osteo as aboveConti nue local care per wound teamNo surgical interventi on at this time.Nola nue abx. as above.Cont inue protein supplement Continue MVI with minerals dailyWorki ng with rehab, currently NWB. Essential hypertension 52765135 I10 VSSconthyd ralazine 50 mg po q 8 hrslosarta n 100 mg po qdmonitor Non-toxic multinodular goiter 60976021 E04.2 hx ofleft goiter biopsy done on 11/23/23, results obtained and benign (done prior to admission here at [facility])Seen by [facility]o 04/19, referral made to Dr Jacques for 12 cm thyroid nodule with tracheal deviation. Labs 05/01 (alb, bmp, calcium, free t 4, tsh and vit d) - nsg. to have sent results to [facility] EndoF/U 06/28/[address] Salmon at [address] [place] [address], [address], [facility] dney disease stage 3 536815551 N18.31 [facility] in hosp. - ARB held, given IVF with improvemen tMonitorin g renal function q monday - labs remaining stable.Now back on ARBavoid nephrotoxi c meds as ablenephro consult prn Anemia 891734275 D50.8 Mild at baseline, likely due to CKD.CBC stableCont inue FeSO4 325 mg qd, encourage compliance , can consider reducing to qodMonitor labs [id number] Coco Patiño NP [address] [address] 05/29/2024 11:10:48 06/03/2024 09:21:33 Chronic osteomyelitis of right foot 4012060552 273431 M86.671 See HPIcomplet ed rocephin 1 gm qd as well as probiotic x 6 weeks on ickman to right chest in place, flushing with saline, pt. ref. heparin,. [facility] for zarate removal on 05/30vitals dailyLabs stable as above- continue to follow weekly for now since abx. stopped. Cellulitis of right foot 2289230453 2097120 L03.115 As above Diabetic foot ulcer 3710 80109 L97.519 With cellulitis and chronic osteo as aboveConti nue local care per wound teamNo surgical interventi on at this time.Nola nue abx. as above.Cont inue protein supplement Continue MVI with minerals dailyWorki ng with rehab, currently NWB. Essential hypertension 34171823 I10 VSSconthyd ralazine 50 mg po q 8 hrslosarta n 100 mg po qdmonitor Non-toxic multinodular goiter 87129985 E04.2 hx ofleft goiter biopsy done on 11/23/23, results obtained and benign (done prior to admission here at [facility])Seen by [facility] 04/19, referral made to Dr Jacques for 12 cm thyroid nodule with tracheal deviation. pt states her appt is in June.pt states she will just fu with [place] and not ruthie siddiquiey disease stage 3 598257283 N18.31 [facility] in hosp. - ARB held, given IVF with improvemen tMonitorin g renal function q monday - labs remaining stable.Now back on ARBavoid nephrotoxi c meds as ablenephro consult prn Anemia 638594808 D50.8 Mild at baseline, likely due to CKD.CBC stableFeSO 4 325 mg qd, encourage compliance , can consider reducing to qodMonitor labs [id number] RENATO SOTELO CNP [facility] [address] [address] 06/05/2024 12:35:28 06/07/2024 12:55:19 Chronic osteomyelitis of right foot 8510430209 962898 M86.671 See HPIcomplet ed rocephin 1 gm qd as well as probiotic x 6 weeks on ickman removed on 05/30 by [facility] IRvitals dailyLabs stable as above- continue to follow weekly for now since abx. stopped. Diabetic foot ulcer 3710 25923 L97.519 With cellulitis and chronic osteo as abovecellu litis resolved.C ontinue local care per wound teamNo surgical interventi on at this time.Nola nue protein supplement Continue MVI with minerals dailyWorki ng with rehab, currently NWB. Essential hypertension 88221321 I10 VSSconthyd ralazine 50 mg po q 8 hrslosarta n 100 mg po qdmonitor Non-toxic multinodular goiter 33882872 E04.2 hx ofleft goiter biopsy done on 11/23/23, results obtained and benign (done prior to admission here at [facility])Seen by [facility]in 04/19, referral made to Dr Jacques for 12 cm thyroid nodule with tracheal deviation. pt states her appt is in June.pt states she will just fu with [place] and not ruthie hankins dney disease stage 3 775399926 N18.31 [facility] in hosp. - ARB held, given IVF with improvemen tMonitorin g renal function q monday - labs remaining stable.Now back on ARBavoid nephrotoxi c meds as ablenephro consult prn Anemia 525592221 D50.8 Mild at baseline, likely due to CKD.CBC stableFeSO 4 325 mg qd, encourage compliance , can consider reducing to qodMonitor labs [id number] Coco Patiño NP [address] [address] 06/17/2024 14:43:32 06/19/2024 14:24:56 Chronic osteomyelitis of right foot 7599195988 345049 M86.671 resolvingc ompleted rocephin 1 gm qd as well as probiotic x 6 weeks on ickman removed on 05/30 by [facility] stablelab stable, will trend to ensure infection does not reoccur as in recent past Diabetic foot ulcer 3710 23827 L97.519 With cellulitis and chronic osteo as above/cell ulitis resolved.C ontinueloc al care per wound teamprotei n supplement MVI with minerals dailyWorki ng with rehab, currently NWB until healed Essential hypertension 63578559 I10 bp boderlinec onthydrala zine 50 mg po q 8 hrs hold for sbp 90losartan 100 mg po qdmonitor Non-toxic multinodular goiter 97967673 E04.2 hx ofleft goiter biopsy done on 11/23/23, results obtained and benign (done prior to admission here at [facility])Seen by [facility] Manny Gagnon 04/19, referral made to Dr Jacques for 12 cm thyroid nodule with tracheal deviation. fu with [place] Chronic ki dney disease stage 3 919361599 N18.31 [facility] in hosp. - ARB held, given IVF with improvemen t trending down latelyMoni tor renal function q mondaya void nephrotoxi c meds as ablenephro consult prn Slow trans it constipation 80919549 K59.01 seems chronic issue but doesn't want mild laxative qd, she is agreeable today after needing mom and laxatives again over weekend06/17 start senna po qd and cont senna 8.6 mg po q 24 hours prnMonitor for resolution Primary insomnia 1952497 F51.01 with insomnia latelymela toin 5mg po qhsmonitor for effect [id number] JOHN KAYE NP [facility] [address] [address] 06/18/2024 13:43:00 06/20/2024 13:01:41 Nausea and vomiting 85584675 R11.2 Started today.Abd. exam reassuring at present.Te sting for COVID, other residents currently sickZofran prn in placeChang e diet to clear liquids x 24 hrs, advance as tory.Monito r BS - checking tid and prn - monitor need to hold lantus due to reduced po intake. [id number] Coco Patiño NP [facility] [address] [address] 06/21/2024 13:17:07 06/25/2024 14:00:25 Nausea and vomiting 41180711 R11.2 resolvedTe sting for COVID, other residents currently sick, covid negativeZo andreina prn in placediet advance as tory. eating and drinking wellMonito r BS - checking tid and prn - monitor need to hold lantus due to reduced po intake. Acute insomnia 317808755 G47.09 5/9 increase to melatonin 10 mg po qhsmonitor Chronic os teomyelitis of right foot 9127974039 942197 M86.671 resolvingc ompleted rocephin 1 gm qd as well as probiotic x 6 weeks on ickman removed on 05/30 by [facility]vital[facility] stablelabs stable, will trend to ensure infection does not reoccur as in recent past Diabetic foot ulcer 3710 78456 L97.519 With cellulitis and chronic osteo as above/cell ulitis resolved.C ontinueloc al care per wound teamprotei n supplement MVI with minerals dailyWorki ng with rehab, currently NWB until healed Essential hypertension 67062108 I10 bp boderlinec onthydrala zine 50 mg po q 8 hrs hold for sbp 90losartan 100 mg po qdmonitor Non-toxic multinodular goiter 31748984 E04.2 hx ofleft goiter biopsy done on 11/23/23, results obtained and benign (done prior to admission here at [facility])Seen by [facility] Manny Gagnon 04/19, referral made to Dr Jacques for 12 cm thyroid nodule with tracheal deviation. fu with [place] ki dney disease stage 3 444834084 N18.31 [facility] in hosp. - ARB held, given IVF with improvemen t trending down latelyMoni tor renal function q mondaya void nephrotoxi c meds as ablenephro consult prn Anemia 319472138 D50.8 Mild at baseline, likely due to CKD.CBC stableFeSO 4 325 mg qd, encourage compliance , can consider reducing to qodMonitor labs [id number] JOHN KAYE NP [facility] [address] [address] 06/27/2024 09:20:28 06/28/2024 16:28:06 Spasm 44798055 M62.838 Mostly when laying in bed, has had before at home. Goes away on its own without interventi on.She thinks it is related to nerves/anx iety, and that we can continue to monitor it for now.BJ will let staff know if it continues or worsens. At [facility] ed risk of sleep impairment [id number] Z91.89 Reports waking at 3 am, and not able to go back to sleep.She is going to bed early due to her roommate, around 7 pm.Hours of sleep reviewed with BJ, and if she falls asleep around 8 pm and sleeps until 3 am, that is 7 hrs. of sleep which is a normal amount of sleep.Enco uraged to try to stay up later to help her sleep later. [id number] Coco Patiño NP [facility] [address] [address] 06/28/2024 09:11:42 07/01/2024 13:41:25 Acute insomnia [id number] G47.09 contmelato austin 10 mg po qhs06/28 add trazodone 50 mg po qhs per psych recmonitor Non-toxic multinodular goiter [id number] E04.2 hx ofleft goiter biopsy done on 11/23/23, results obtained and benign (done prior to admission here at [facility])Seen by [facility] Manny Gagnon 04/19, referral made to Dr Jacques for 12 cm thyroid nodule with tracheal deviation. fu with [facility] 07/04 at 3 pm per pt Constipation 09475604 K5 9.09 has intermitte nt constipati on with complaint of hard stool yest and abd feeling constipate d today06/28 mom 30 cc todayconts ada 8.6 mg po q 24 hours and pr/16 start miralax 17 grams po qdMonitor for resolution [id number] Coco Patiño, [place] [address] [address] 07/05/2024 11:23:12 07/10/2024 17:35:20 Acute insomnia [id number] G47.09 contmelato austin 10 mg po qhstrazodo ne 50 mg po qhs per psych rec, recently started and states it helps her sleepmonit or Non-toxic multinodular goiter 36975133 E04.2 hx ofleft goiter biopsy done on 11/23/23, results obtained and benign (done prior to admission here at [facility])Seen by [facility] [place] Manny Gagnon 04/19, referral made to Dr Dia for 12 cm thyroid nodule with tracheal deviation. was seen on 07/04/24Dr [facility], office to call for info of fu visit- rec considerin juan preop CT (pt states [facility] with review old one and call with new one if needed-libby hall preop clearance (pt states he is not considerin g surgery till the fall, will do --preop when date gets closer)mon itor Chronic os teomyelitis of right foot [id number] 463521 M86.671 resolvedco mpleted rocephin 1 gm qd as well as probiotic x 6 weeks on 4/8Hickman removed on 05/30 by Carmanmarty Sanchez stablelabs stable, will trend to ensure infection does not reoccur as in recent past Diabetic foot ulcer 3710 73779 L97.519 With cellulitis and chronic osteo as above/cell ulitis resolved.C ontinueloc al care per wound teamprotei n supplement MVI with minerals dailyWorki ng with rehab, currently NWB until healed Essential hypertension 19156607 I10 bp boderlinec onthydrala zine 50 mg po q 8 hrs hold for sbp 90losartan 100 mg po qdmonitor Chronic ki dney disease stage 3 [id number] N18.31 VENKATESH in hosp. - ARB held, given IVF with improvemen t trending down latelyMoni tor renal function q mondaya void nephrotoxi c meds as ablenephro consult prn Anemia 650304659 D50.8 Mild at baseline, likely due to CKD.CBC stable07/05 decrease FeSO4 325 mg qd to qodencoura ge environmental compliance specialist labs Delusional disorder 4850 0005 F22 pt with paranoid behaviors thinking people are poisoning her latelyhas recently started on trazodone at [facility]07/05 psych consult06/14 3 urinalysis 07/05 cbc and bmp monday [id number] JOHN KAYE NP [facility] [address] [address] 07/09/2024 14:29:14 07/10/2024 17:54:50 Delusional disorder 56898481 F22 pt with paranoid behaviors thinking people are poisoning her latelyhas recently started on trazodone at [facility]07/05 psych consulted again07/05 urinalysis ordered - UA appears positive, does not appear C&S was done. Yeast present, will add diflucan 200 mg x 1 dose x 1 day then 100 mg qd x 6 doses. Can consider repeat of UA C&S if no improvemen t.Labs 07/09 stable except elevated Creat - encourage po fluids. Acute insomnia 070909784 G47.09 contmelato austin 10 mg po qhstrazodo ne 50 mg po qhs per psych rec, recently started and states it helps her sleepmonit or [id number] Coco Patiño NP [address] [address] 07/15/2024 13:19:46 07/17/2024 10:16:16 Delusional disorder 03832072 F22 continues with some paranoid behaviors thinking people are poisoning her over last month and BS aren't reported correctlyr ecently started on trazodone at [facility] 07/05 urinalysis ordered - UA appears positive, does not appear C&S was done. Yeast present, received diflucan 200 mg x 1 dose x 1 day then 100 mg qd x 6 doses.Labs 07/09 stable except elevated Creat - encourage po fluids. 07/15 repeat urinalysis with culture and sensitivit ycont psych, consulted again Diabetic foot ulcer 3710 13547 L97.519 With cellulitis and chronic osteo as above/cell ulitis resolved.C ontinueloc al care per wound teamprotei n supplement MVI with minerals dailyWorki ng with rehab, currently NWB until healedwbc count stable Diabetes mellitus 368090 09 E11.21 Sugars in good control in generalHgA 1C 7.8 on 04/09/24Con tinuelantu s 20U qd and SSIMonitor fingerstic ks TID and HgA1C q 3 months. [id number] Coco Patiño NP [address] [address] 07/19/2024 10:23:52 07/23/2024 10:48:06 Delusional disorder 08937796 F22 continues with some paranoid behaviors thinking people are poisoning her over last month and BS aren't reported correctlyr ecently started on trazodone at [facility] 07/05 urinalysis ordered - UA appears positive, does not appear C&S was done. Yeast present, received diflucan 200 mg x 1 dose x 1 day then 100 mg qd x 6 doses. 07/16 repeat urinalysis with culture and sensitivit y contaminat ed07/17 seen by psych and counselor and feel delusions and hallucinat ions continue07/19 repeat urine with straight cath07/19 start diflucan 100 mg po qd x 3 days/6 cbc and bmp on saturday 07/22psych to follow Diabetic foot ulcer 3710 10545 L97.519 With cellulitis and chronic osteo as above/cell ulitis resolved.C ontinueloc al care per wound teamprotei n supplement MVI with minerals dailyWorki ng with rehab, currently NWB until healed07/19 cbc and bmp on saturday 07/22 [id number] Coco Patiño NP [address] [place] [address] 07/24/2024 13:51:20 07/30/2024 10:39:38 Delusional disorder 02749982 F22 continues with some paranoid behaviors thinking people are poisoning her over last month and BS aren't reported correctlyr ecently started on trazodone at [place] [facility] 07/05 urinalysis ordered - UA appears positive, does not appear C&S was done. Yeast present, received diflucan 200 mg x 1 dose x 1 day then 100 mg qd x 6 doses.07/16 repeat urinalysis with culture and sensitivit y contaminat ed07/17 seen by psych and counselor and feel delusions and hallucinat ions continue07/19 repeat urine with straight cath07/19 start diflucan 100 mg po qd x 3 days07/19 cbc and bmp on saturday 07/22, stable, Urinalysis contaminat ed07/22 started on olanzapine 2.5 mg po qd07/24 start cipro for uti and reevalpsyc h to follow Diabetic foot ulcer 3710 41814 L97.519 With cellulitis and chronic osteo as above/cell ulitis resolved.C ontinueloc al care per wound teamprotei n supplement MVI with minerals dailyWorki ng with rehab, currently NWB until healedcbc and bmp on saturday 07/22 stable Acute urin sung tract infection 321097281 N39.0 has nitrate and leukocytes positive urine with >100,000 gram neg bacteria and contaminat ionunfortu nately multiple urines and contaminat ed, so no cultures and recently treated with diflucan01/07: start cipro 500 mg po bid x 14 days for uti with probiotic for 16 days and reeval for probable complicate d uti likely causing confusion and paranoia.m onitor Diabetes mellitus 794275 09 E11.21 Sugars in good control in generalHgA 1C 7.8 on 04/09/24Con tinuelantu s 20U qd and SSI07/24 change ssi to start at 200Monitor fingerstic ks TID and HgA1C q 3 months. [id number] Coco Patiño NP [address] [place] [address] 07/25/2024 08:53:59 07/30/2024 11:00:31 Delusional disorder 46061596 F22 continues with some paranoid behaviors thinking people are poisoning her over last month and BS aren't reported correctlyr ecently started on trazodone at [facility] 07/05 urinalysis ordered - UA appears positive, does not appear C&S was done. Yeast present, received diflucan 200 mg x 1 dose x 1 day then 100 mg qd x 6 doses.07/16 repeat urinalysis with culture and sensitivit y contaminat ed07/17 seen by psych and counselor and feel delusions and hallucinat ions continue07/19 repeat urine with straight cath07/19 start diflucan 100 mg po qd x 3 days07/19 cbc and bmp on saturday 07/22, stable, Urinalysis contaminat ed07/22 started on olanzapine 2.5 mg po qd07/24 start cipro x 14 days for uti and reeval07/25 cont plan abovepsych to follow Acute urin sung tract infection [id number] N39.0 has nitrate and leukocytes positive urine with >100,000 gram neg bacteria and contaminat ionunfortu nately multiple urines and contaminat ed, so no cultures and recently treated with diflucan01/07: start cipro 500 mg po bid x 14 days for uti with probiotic for 16 days and reeval for probable complicate d uti likely causing confusion and paranoia. cont plan abovemonit or Diabetic foot ulcer 3710 60984 L97.519 With cellulitis and chronic osteo as above/cell ulitis resolved.C ontinueloc al care per wound teamprotei n supplement MVI with minerals dailyWorki ng with rehab, currently NWB until healedcbc and bmp on saturday 07/22 stablemoni tor weekly prn Diabetes mellitus 265941 09 E11.21 due to paranoia she is refusing lantus at times. overall, BS 100-200sSu gars in good control in generalHgA 1C 7.8 on 2/25/25Con tinuelantu s 20U qd and SSI6/11 change ssi to start at 200Monitor fingerstic ks TID and HgA1C q 3 months.con photography editor adjustment in lantus if continues to refusemoni tor for decreased paranoia with plan above Dysphagia 39365915 R13.1 0 reports diff swallowing pills07/25 start speech eval07/25 give pills with applesauce seems to tory diet wellmonito r for changes [id number] JOHN KAYE NP [facility] [address] [place] [address] 07/30/2024 10:11:18 08/07/2024 20:35:57 Dysphagia 24386044 R13.10 ? if related to large goiterrepo rts diff swallowing pills last weekReferr ed to SLPtaking pills with applesauce continue current dietmonito r for changes Delusional disorder 4850 0005 F22 continues with paranoid behaviors thinking people are poisoning herrecentl y started on trazodone at [facility] and daily zyprexacur rently being treated for UTIReferre d to Psych for continued behavioral mgmt.Check TSH, FT4 x 1 Acute urin sung tract infection 079111150 N39.0 Now on Cipro for UTI, treating due to confusion and paranoid behaviors. Monitor VS, sx. Diabetes mellitus 175994 09 E11.21 due to paranoia she is refusing lantus frequently BS in good control - 100s, occasional 200s - despite refusing lantusLast HgA1C 7.8 on 04/09/24 Stop lantus as BS ig good control, monitor need to restart.Co ntinue lispro ssi, starting at 200 Monitor fingerstic ks TID and HgA1C q 3 months.Man age paranoia Constipation 09373774 K5 9.09 stools reported as hard, trouble passing stool per CAN INTAKE WORKER.Contin ue miralax dailyChang e senna to senna-plus 2 tabs daily.Main tain hydrationE ncourage dietary fiber and activity. Monitor Essential hypertension 68306207 I10 BP variable, very high yesterday, better today 141/71. Range 105/92 - 200/101)Cu rrently on:hydrala zine 50 mg po q 8 hrslosarta n 100 mg po qdNo Change at this timeMay consider low dose HCTZ (allergic to amlodipine , HR 60s, BB may not be the best option) [id number] JOHN KAYE NP [address] [place] [address] 08/13/2024 15:02:25 08/14/2024 11:37:31 Essential hypertension 19309486 I10 BP variable, but overall readings acceptable .Currently on:hydrala zine 50 mg po q 8 hrslosarta n 100 mg po qdTrend VS Constipation 77942598 K5 9.09 stools reported as hard, trouble passing stool per CAN INTAKE WORKER.Remain s on miralax and senna-plus 2 tabs daily.Main tain hydrationE ncourage dietary fiber and activity.M onitor Dysphagia 26055805 R13.1 0 ? if related to large goiter. Has Endo appt. 7/3reports diff swallowing pills last weekReferr ed to TELEVISION TECHNICIAN, currently on program.ta rui pills with applesauce continue current dietmonito r for changes Diabetes mellitus 966101 09 E11.21 due to refusing lantus and good BS control, lantus was stopped and BS remain stable.SSI in place, change lispro to aspart or novolog per insurance request.A1 C 08/01 = 6.2%Monito r fingerstic ks TID and HgA1C q 3 months. Delusional disorder 4850 0005 F22 continues with paranoid behaviors thinking people are poisoning herrecentl y started on trazodone at [facility] and daily zyprexatre ated for UTIReferre d to Psych for continued behavioral mgmt.Labs okAdding prn trazodone as above to help with anxiety Acute urin sung tract infection 410915268 N39.0 Completed Cipro for UTI, treating due to confusion and paranoid behaviors. Per staff, they feel she is aMonitor VS, sx. Generalize d anxiety disorder 54054757 F41.1 Pt. reports feeling very anxious right now.Thinks it is causing her GI sx.Continu e zoloft 50 mg qd, trazodone 50 mg q hs, zyprexa 2.5 mg qdWill add trazodone 25 mg bid prn x 14 days to help with anxiety. Monitor use and effectPsyc h follows as well. Acute vomiting 76301716 R11.10 With GI upset.Epis ode of vomiting reported this am, described as coffee ground emesis.Not taking all meds, food intake not as good today.Pt. thinks it is related to nerves and anxiety.Zo andreina prn in placePer staff is moving bowels (soft, brown, no blood, not black)Cayden ng prn trazodone to help with anxiety, hopefully this will help GI sx. as well. Health Concerns Section Related Observation LastModified by Organization Detai ls LastModified Time None Recorded Concern Status LastModified by Organization Details LastModified Time None Recorded Advance Directives Directive Y: cpr, transfer to hosp, ort term dialysis, art nutrition and hydration okay NO intubationsigned Payers Insurance Date Sequence Insurance Name Policy Number Policy Hughes Covered Member ID Hughes Member ID Guarantor Name 02/01/2024 1 Pager VICTOR [id number] Olga Kat [id number] Olga Kat 02/01/2024 1 [employer] [id number] Olga Kat [id number] Olga Kat 08/13/2024 1 [place]MED[place]ARE [place]AC[place] HMO) [id number] Olga Kat [id number] Olga Kat Notes Date Note Type Note Provider Name and Address Organization Details Recorded Time 07/19/2024 text/html ANDREA is seen today for an acute rounding visit. Pt seen for paronoia and delusions at baseline, nursing feels worse at times lately. She has been on multiple abx prior to this for a osteomyelitis foot infection now healed and resolved.A urine was done on 07/09 but culture not resulted. She was treated for fungal UTI with yeast in specimen for 6 days.Another urinalysis with culture and sensitivity done on 07/16/24 now showing contaminated, but with 2+ bacteria and 3+ leukocytes.no nitrates. Due to prior yeast in urine will continue with 3 days of diflucan. She is followed by psych and counselor both noting paranoia at baseline and increased at times. Seems she likes some nurses more than others. She is requesting a specific nurse to cath her today. On exam, ANDREA is in bed, alert, feels ok. She denies any urinary symptoms. She denies any other concerns this am and is aware of person, place and time today. Her right foot wound healed with notable scale and healing, without s/s of infection. Will ensure no infection causing delusions and paranoia with another straight cath urine today and labs on monday. Coco Patiño, [facility] [address], [address], [place], [address], [facility] [employer] 07/19/2024 10:47:34 07/24/2024 text/html ANDREA is seen today for an acute rounding visit regarding her paranoia. Pt seen for paronoia and delusions at baseline, nursing feels worse at times lately and increasing, now refuses meds at times. She has been on multiple abx even IV for her osteo, prior to this for a osteomyelitis foot infection now healed and resolved.A urine was done on 07/09 but culture not resulted. She was treated for fungal UTI with yeast in specimen for 6 days.Another urinalysis with culture and sensitivity done on 07/16/24 now showing contaminated, but with 2+ bacteria and 3+ leukocytes.no nitrates. Due to prior yeast in urine will continue with 3 days of diflucan.Another urinalysis with culture and sensitivity done on 07/17 and contaminated with multiple organism, however does show positive leukocystes, wbc, and nitrates with >100,000 gram neg bacteria. .She was treated with diflucan for yeast again per last culture. She remains followed by psych and counselor both noting paranoia at baseline and increased at times.She believe some nurses are fake and some real here. She continues to not listen to reason despite showing meds, badges, etc....Kim counselor saw her today and cannot reason with her either.She was seen by psychotherapist and started on olanzapine 2.5mg po qd. She continues to refuse iron due to constipation at times and today states she is refusing insulin as brings her BS down to low. Her BS is 164. She is mostly in the 100-200s. Nothing below 80s. BS reviewed and will change lispro scale to start at 200. On exam, ANDREA is in bed, alert, feels ok. She refuses to go to activities or leave her room. She denies any urinary symptoms. She denies any other concerns this am and is aware of person, place and time today. Her right foot wound healed with notable scale and healing, without s/s of infection. She is agreeable to be treated for UTI, but denies any symptoms of UTI except confusion. [facility] on 07/24/24 Coco Patiño, [place] [address], [address], [place], [address], [facility] [employer] 07/24/2024 14:30:24 07/25/2024 text/html ANDREA is seen today for an acute rounding visit regarding her paranoia. Pt seen for her concern of not swallowing her pills the same. She reports she is able to eat and drink the same, it is just the pills. She does not mention any specific pills. She states if she uses applesauce it helps. On exam, ANDREA is sitting up in bed and denies any pain. She remains with enlarged goiter area to left neck and is reminded of her fu with Dr Jacques for surgery is in the fall per her last visit. She is eating a bag of chips at bedside today. Her right foot wound healed with notable scale and healing, without s/s of infection. She is agreeable to be treated for UTI, but denies any symptoms of UTI except confusion. of note: Recently she is more confused and paranoid and started on cipro for UTI. Olanazapine for paranoid delusions and hallucinations. [facility] on 07/24/24 Coco Patiño NP [address], [place], [address], [facility] [employer] [facility] 07/25/2024 10:48:17 07/30/2024 text/html ANDREA is seen today for an acute visit. Followed closely over the past few weeks due to changes in MS, increased confusion and paranoia.Currently being treated for UTI.Zyprexa started last week due to behaviors.Issues with swallowing pills last week, referred to TELEVISION TECHNICIAN, taking pills 1 at a time now in applesauce which seems to be working better.Nsg. reports she frequently refused her lantus insulin - appears refused most days, has only taken 6 times this month if MAR accurate. BS quite good in 100s.Also reports high BP yesterday (207/107, 200/100). BP today 141/71. Review of BPs - appear variable. On exam, ANDREA is up in her w/c, alert, NAD. Wants to start B1 as her family/friend says it will help with her right leg swelling that she has had since 2013. Use discussed including questionable benefit as well as polypharmacy, and she still wants to take it. Only other complaint is constipation, constantly going . Per CAN INTAKE WORKER, stool hard, having trouble passing. [facility] on 07/24/24 JOHN KAYE NP [address], [address], [place], [address], [facility] [employer] [facility] 07/30/2024 13:36:13 08/13/2024 text/html ANDREA is seen today for an acute visit. Followed closely over the past few weeks due to changes in MS, increased confusion and paranoia.Completed antibiotics for UTI.Zyprexa recently started due to behaviors.Issues with swallowing pills last week, referred to TELEVISION TECHNICIAN, taking pills 1 at a time now in applesauce which seems to be working better. Continues to work with rehab.Lantus stopped due to pt. refusal and good BS control. BS remain in 100s.Issues with variable BP, overall most in a decent range (SBP 130s-140s)Bowel meds increased to help with constipation. Staff reporting pt. vomited in the am, described as dark coffee ground emesis. Day shift staff did not see it, no vomiting today. Poor intake today, but is drinking fluids.Refused some am meds due to GI upset this am. On exam, ANDREA is in her bed, alert, reports she is very anxious. She says the activity in the [place]aleano as well as someone that might have is causing her a lot of anxiety. She thinks her GI issues are related to nerves and anxiety. Meds reviewed, is on prilosec 40 mg qd. [facility] on 07/24/24 JOHN KAYE NP [address], [address], [place], [address], [facility] [employer] [facility] 08/14/2024 09:58:59 OBGyn Episode No OBEpisode recorded.
== END 2024-08-15 13:26 | disposition home or self-care (01) ==
LOC: HO.ENCR 13:11
PROVIDERS: PCP Family Medicine; Visit Provider Student in an Organized Health Care Education/Training Program
DX: E04.2 Nontoxic multinodular goiter (principal)
CPT/HCPCS: 99213

== ENCOUNTER 2025-01-18 10:15 | Emergency (ER) | payer BC, MEDICAID, SELFPAY ==
--- NOTE | ~2025-01-18 | CT_ITS ---
CLINICAL HISTORY: fall with head strike CT CERVICAL SPINE WITHOUT CONTRAST Comparison: CT/[place]/SR - CT CERVICAL SPINE WITHOUT IV CONTRAST - 11/28/23 13:23 EDT Findings: Satisfactory alignment. Stable mild levoscoliosis. [id number] degenerative changes. No acute fractures or dislocations. Please see separate report for CT head/brain. No acute abnormalities in the soft tissues of the neck or lung apices. Carotid and vertebral artery calcifications. IMPRESSION: No acute fracture in the cervical spine. This document has been electronically signed by: Cecille Michael DO on 01/18/2025 14:10:39
--- NOTE | ~2025-01-18 | XR_ITS ---
CLINICAL HISTORY: fall, tender distal 2 view right femur Comparison: DX - XR HIP LT MIN 2V W/WO PEL - 02/23/24 09:48 EST Findings: No fractures or dislocations. Degenerative changes in the right hip and right knee. No radiopaque foreign body. Extensive arterial calcifications. IMPRESSION: No acute fracture. This document has been electronically signed by: Cecille Michael DO on 01/18/2025 11:56:47
--- NOTE | ~2025-01-18 | CT_ITS ---
CLINICAL HISTORY: fall with head strike CT HEAD WITHOUT CONTRAST Comparison: CT/SR - CT HEAD WITHOUT IV CONTRAST - 11/28/23 13:23 EDT Findings: No acute intracranial hemorrhage, extra-axial fluid collection, hydrocephalus or midline shift. Age appropriate generalized parenchymal atrophy. There are periventricular and subcortical white matter hypodensities which are most likely related to microangiopathic gliosis. Intracranial arteriosclerosis. Multiple remote lacunar infarcts in the bilateral basal ganglia and bilateral thalami. 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 No sinus or mastoid fluid. Nonspecific mild mucosal thickening in the bilateral maxillary sinuses. Visualized orbits: Bilateral aphakia. There is no acute fracture. IMPRESSION: No acute intracranial hemorrhage. This document has been electronically signed by: Cecille Michael DO on 01/18/2025 13:36:18
[2025-01-18 10:21] VITALS: BP 136/62; PULSE 73; O2SAT 96
--- NOTE | 2025-01-18 10:27 | ED_ITS ---
HPI - General Adult General Chief complaint: Fall Stated complaint: FALL OUT OF BED LEG PAIN Time Seen by Provider: 01/18/25 10:26 Source: patient, EMS, RN notes reviewed and old records reviewed Mode of arrival: EMS History of Present Illness ED Provider: Amos HPI narrative: Patient is a 64-year-old female with history of recent left thyroid lobectomy 12/11/24, CKD, T2DM, vertigo, PAD, HTN presenting to the emergency department from [facility] after a fall out of bed, now having right thigh pain. Patient states that she felt dizzy and rolled out of her bed. History of vertigo, states this felt the same. Reports head strike but denies loss of consciousness. Denies neck or back pain. Denies current headache, vision changes. MD complaint: leg pain Related Data Home Medications ?Medication ?Instructions ?Recorded ?Confirmed ferrous sulfate 325 mg (65 mg 325 mg PO DAILY 08/07/23 08/15/24 iron) tablet,delayed release rosuvastatin 5 mg tablet 5 mg PO DAILY 08/07/2308/15 sertraline 50 mg tablet 50 mg PO DAILY 08/07/2305/07 cholecalciferol (vitamin D3) 50 50 mcg PO DAILY 08/15/24 mcg (2,000 unit) capsule (Vitamin D3) loratadine 10 mg tablet 10 mg PO DAILY 11/28/2305/07 sennosides 8.6 mg tablet (senna) 8.6 mg PO DAILY PRN C onstipation 12/31/23 08/15/24 omeprazole 40 mg capsule,delayed 40 mg PO DAILY@0630 0 02/23/24 08/15/24 release acetaminophen 325 mg tablet 650 mg PO Q4H PRN Fever Or Pain 04/02/24 08/15/24 acetaminophen 650 mg rectal 650 mg MN Q4H PRN Fever Or Pain 04/02/24 08/15/24 suppository bisacodyl 10 mg rectal suppository 10 mg MN DAILY PRN Constipation 04/02/24 08/15/24 glucagon HCl 1 mg solution for 1 mg subcut Q20M PRN lo w blood 04/02/24 08/15/24 injection (Glucagon (HCl) sugar Emergency Kit) guaifenesin 100 mg/5 mL oral liquid 200 mg PO Q4H PRN Cough 04/02/24 08/15/24 hydralazine 25 mg tablet 50 mg PO Q6H 04/02/24 losartan 50 mg tablet 100 mg PO DAILY 04/02/2405/07 magnesium hydroxide 400 mg/5 mL 30 ml PO DAILY PRN Con stipation 04/02/24 08/15/24 oral suspension (Milk of Magnesia) naloxone 4 mg/actuation nasal 4 mg intranasal Q3M PRN Opioid 04/02/24 08/15/24 spray (Narcan) Reversal ondansetron HCl 4 mg tablet 4 mg PO Q6H PRN Nausea And Vomiting 04/02/24 08/15/24 sodium phosphates 19 gram-7 118 ml MN DAILY PRN Consti pation 04/02/24 08/15/24 gram/118 mL enema (Fleet Enema) Previous Rx's ?Medication ?Instructions ?Recorded flash glucose sensor (FreeStyle #2 ea 04/06/21 Amber 14 Day Sensor kit) blood sugar diagnostic (FreeStyle #100 ea 04/23/21 Lite Strips) blood-glucose meter (FreeStyle #1 ea 04/23/21 Lite Meter kit) lancets 28 gauge (FreeStyle #100 ea 04/23/21 Lancets) pen needle, diabetic 32 gauge x #150 ea 08/09/21 (BD Adela 2nd Gen Pen Needle) insulin glargine 100 unit/mL 20 unit (0.2 mL) subcut B EDTIME 01/04/24 subcutaneous solution (Lantus #10 mL U-100 Insulin) insulin lispro 100 unit/mL See Protocol subcut QIDACHS #10 mL 01/04/24 subcutaneous solution (Admelog U-100 Insulin lispro) ceftriaxone 1 gram solution for 1 g IVPUSH Q24H #1 ea 04/08/24 injection Allergies Allergy/AdvReac Type Severity Reaction Status Date / Time amlodipine (From Norvasc) Allergy Mild Swelling Verified 01/18/25 10:38 Penicillins Allergy Mild Rash Verified 01/18/25 10:38 erythromycin base Allergy Unknown Unknown Verified 01/18/25 10:38 enoxaparin (From Lovenox) Allergy Vomiting Verified 01/18/25 10:38 heparin Allergy Vomiting Verified 01/18/25 10:38 clindamycin (CLINDAMYCIN) AdvReac Intermediate Diarrhea Verified 01/18/25 10:38 NephrAmine Allergy Unknown Swelling Uncoded 01/18/25 10:38 Review of Systems 2 Review of Systems: As per HPI Yes all other systems are reviewed and are negative Constitutional: Constitutional: Reports as per HPI [facility], [facility] Past Medical History Medical History CKD (chronic kidney disease) Vertigo Diabetic foot ulcer associated with type 2 diabetes mellitus Cellulitis PAD (peripheral artery disease) Non-toxic multinodular goiter Dyslipidemia 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 Diabetic neuropathy associated with type 2 diabetes mellitus Diabetic retinopathy associated with type 2 diabetes mellitus Diabetic nephropathy associated with type 2 diabetes mellitus 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 Diabetes type 2, uncontrolled Surgical History S/P thyroid biopsy Hx of cataract extraction Hx of LASIK Hx of eye surgery Hx of foot surgery Family History Family History Father COPD (chronic obstructive pulmonary disease) Diabetes Mother Heart disease Social History Social History Household Members: None Housing: [facility] Are you a primary transition of care specialist to a significant other at home: No Do you presently have visiting nurse or other home services: Yes Alcohol intake: current Alcohol intake frequency: does not drink Patient Tobacco Use Status: Former Tobacco user Years Smoked: 20 years e-Cigarette/Vaping Use: Never Used Advance Directives: Yes Advance Directives on File: Yes Advance Directives Date on File: 12/04/23 service: No Current occupational status: employed Physical Exam ED Vital Signs: Vital Signs - 24 hr 01/18/25 10:36 Temperature 97.8 F Pulse Rate 71 Respiratory Rate 16 Blood Pressure 124/86 Pulse Oximetry 97 Oxygen Delivery Method Room Air BMI result Body Mass Index 22.0 Vital signs have been reviewed and appear to be correct. Blood pressure normal. Heart rate normal. Respiratory rate normal. Temperature normal. Oxygen saturation normal. Const General: cooperative and no acute distress Orientation/consciousness: oriented to person, oriented to place, oriented to time and patient oriented x3 Limitations: no limitations HENMT Head: Yes normocephalic and Yes atraumatic Ears: external ears normal General nose exam: Normal external nose present Face and sinus: Yes face symmetric Mouth: oropharynx normal and moist mucous membranes Throat: Yes uvula midline Eyes Pupils: Equal, round and reactive pupils present Neck Neck: Yes normal visual inspection and Yes supple Neck images: 2 1. well-healed surgical incision, no erythema/warmth/drainage Resp Effort & Inspection: normal respiratory effort and able to speak in complete sentences Auscultation: clear to auscultation bilaterally Cardio Rate: regular rate Rhythm: regular rhythm Heart sounds: S1 normal heart sound present and S2 normal heart sound present GI Palpation (GI): Soft to palpation and nontender Auscultation: normoactive bowel sounds General: Yes no CVA tenderness Back/Spine/Pelvis Back: no CVA tenderness Cervical Spine: normal cervical lordosis, cervical ROM normal, No Cervical spine tenderness and No step off deformity Thoracic/Lumbar Spine: thoracic and lumbar spine normal to inspection, No thoracic spinal tenderness and No lumbar spinal tenderness Pelvis: no pain with anterior-posterior compression and no pain with lateral compression Skin General skin exam: elasticity normal and turgor normal Neuro General: oriented to person, oriented to place, oriented to time, patient oriented x3, moves all extremities, no focal motor deficits and CN's II-XI intact bilaterally Cranial nerves: Yes Equal, round and reactive pupils present Cognition (Neuro): normal cognition Extrem General: Yes full ROM, Yes no pedal edema and Yes no calf tenderness Right lower extremity: hip/thigh Details: normal to inspection and tenderness Location: other (distal femur) and knee Details: normal to inspection and normal ROM Psych Mental Status: mental status grossly normal Affect: normal affect Thought process: Normal thought process present Medical Decision Making Medical Decision Making MDM Narrative: Patient is a 64-year-old female with history of recent left thyroid lobectomy 12/11/24, CKD, T2DM, vertigo, PAD, HTN presenting to the emergency department from [facility] after a fall out of bed, now having right thigh pain. On exam patient is awake, A+Ox3, VS WNL, afebrile, normal neurological exam without focal deficits, physical exam findings as above. Given reported symptoms and physical exam findings, initial differential includes but is not limited to right thigh strain, sprain, contusion, fracture, ICH, skull or cervical vertebral fracture or subluxation, cardiac arrhythmia, electrolyte abnormality, abnormal thyroid level. Labs notable for mild leukocytosis, slightly elevated transaminases, elevated TSH which is not unexpected in the setting of recent thyroid lobectomy. CT head and C-spine notable for no ICH, skull or cervical vertebral fracture subluxation. Right femur x-ray is without evidence of acute fracture. My interpretation is in agreement with the radiologist's interpretation. Feel patient is stable for return to [facility]. Follow up with PCP as needed. Return precautions discussed. Patient verbalized understanding of and agreement with plan. Differential Diagnosis Differential Diagnoses: The differential diagnosis associated with the presentation includes as per [facility] Admission/Observation Consideration of admission/observation: Escalation of care including admission/observation considered Patient would have been admitted to the hospital and transferred to appropriate facility had their clinical presentation warranted hospital admission. Lab Data [facility] Lab Attestation statement: I reviewed the patient's lab results. as per [facility] 01/18/25 11:13 01/18/25 11:13 Labs: Lab Results 01/18/25 01/18/25 Range/Units 11:13 11:14 WBC 13.7 H (4.8-10.8) X10*3/uL RBC 3.45 L (4.20-5.50) X10*6/uL Hgb 10.2 L (12.0-16.0) g/dl Hct 31.4 L (37.0-47.0) % MCV 91.0 (80.0-98.0) fL MCH 29.6 (27.0-33.0) pg MCHC 32.5 (31.0-35.0) g/dl RDW 13.8 (11.0-16.0) % Plt Count 297 D (160-400) X10*3/uL MPV 9.5 (9.4-12.3) fL Immature Gran % (Auto) 2.0 H (0.0-0.4) % Neut % (Auto) 78.9 H (45-73) % Lymph % (Auto) 10.1 L (20-40) % Kendall % (Auto) 4.8 (2-11) % Eos % (Auto) 3.8 (0-4) % Baso % (Auto) 0.4 (0-2) % Lymph # (Auto) 1.4 (1.2-4.9) X10*3/uL Kendall # (Auto) 0.7 (0.1-1.2) X10*3/uL Eos # (Auto) 0.5 H (0.0-0.4) X10*3/uL Baso # (Auto) 0.1 (0.0-0.2) X10*3/uL Abs Immat Gran (auto) 0.28 H (0.00-0.03) X10*3/uL Absolute Neuts (auto) 10.8 H (2.0-8.3) x10*3/uL Absolute Nucleated RBC 0.000 (0.0-0.012) X10*3/uL Nucleated RBC % (auto) 0.0 (0.0-0.2) /100WBC Sodium 140 (135-145) mmol/L Potassium 4.9 D (3.3-5.1) mmol/L Chloride 107 (96-108) mmol/L Carbon Dioxide 27 (22-29) mmol/L Anion Gap 11 L (12-20) BUN 39 H (9-16) mg/dL Creatinine 1.53 H (0.5-1.4) mg/dL Estim Creat Clear Calc 35.2 Estimated GFR 34 Random Glucose 161 H (60-115) mg/dL Calcium 8.8 D (8.4-10.2) mg/dL Magnesium 2.2 (1.6-2.6) mg/dL Total Bilirubin 0.3 (0.0-1.0) mg/dL AST 35 H (5-31) U/L ALT 33 H (0-31) U/L Alkaline Phosphatase 71 (39-117) U/L Troponin I High Sens < 2.7 (<3.5-17.0) ng/L Total Protein 7.3 (6.5-8.0) g/dL Albumin 4.0 (3.5-5.0) g/dL TSH 8.74 H (0.32-4.0) uIU/mL Free T4 1.00 (0.71-1.85) ng/dL Influenza Type A (PCR) NEGATIVE (Negative) Influenza Type B (PCR) NEGATIVE (Negative) RSV RNA Qual (PCR) NEGATIVE (Negative) SARS-CoV-2 RNA (RT-PCR) NEGATIVE (Negative) Independent Interpretation I performed an independent interpretation of an: EKG (Normal sinus rhythm, rate 67 beats per minute, normal MN interval and QTC), Plain X-Ray and CT Scan Interpretation: CT head and C-spine notable for no ICH, skull or cervical vertebral fracture subluxation. Right femur x-ray is without evidence of acute fracture. Radiology Impression Discussion of test interpretation with radiology: I have reviewed the radiologist's reading. Radiologist Impression: CT CERVICAL SPINE WITHOUT CONTRAST Comparison: CT/MN/SR - CT CERVICAL SPINE WITHOUT IV CONTRAST - 11/28/23 13:23 EDT Findings: Satisfactory alignment. Stable mild levoscoliosis. [id number] degenerative changes. No acute fractures or dislocations. Please see separate report for CT head/brain. No acute abnormalities in the soft tissues of the neck or lung apices. Carotid and vertebral artery calcifications. IMPRESSION: No acute fracture in the cervical spine. CT HEAD WITHOUT CONTRAST Comparison: CT/SR - CT HEAD WITHOUT IV CONTRAST - 11/28/23 13:23 EDT Findings: No acute intracranial hemorrhage, extra-axial fluid collection, hydrocephalus or midline shift. Age appropriate generalized parenchymal atrophy. There are periventricular and subcortical white matter hypodensities which are most likely related to microangiopathic gliosis. Intracranial arteriosclerosis. Multiple remote lacunar infarcts in the bilateral basal ganglia and bilateral thalami. 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 No sinus or mastoid fluid. Nonspecific mild mucosal thickening in the bilateral maxillary sinuses. Visualized orbits: Bilateral aphakia. There is no acute fracture. IMPRESSION: No acute intracranial hemorrhage. 2 view right femur Comparison: DX - XR HIP LT MIN 2V W/WO PEL - 02/23/24 09:48 EST Findings: No fractures or dislocations. Degenerative changes in the right hip and right knee. No radiopaque foreign body. Extensive arterial calcifications. IMPRESSION: No acute fracture. Discharge Plan Discharge Clinical Impression: Acute pain of right thigh Patient Disposition: er [facility] Transfer Details: return to [facility] Additional Instructions: You were evaluated in the emergency department today for injuries after a fall. Your CT scans and x-ray of your leg did not show evidence of any conditions requiring emergent medical treatment at this time. We recommend 650 mg of Tylenol every 6 hours as needed for pain. You can also apply ice to the affected area for 10-15 minutes at a time several times daily, using caution not to apply ice directly to skin. Follow up with your primary care provider as needed. Return for new or concerning symptoms. Prescriptions: No Action (DME) FreeStyle Amber 14 Day Sensor Kit topical Q2W Qty: 2 11RF Rx Instructions: As directed (DME) pen needle, diabetic [BD Adela 2nd Gen Pen Needle] 32 gauge x 5/32 needle MISCELLANEOUS 5XD Qty: 150 6RF Rx Instructions: As directed 5 x/day ferrous sulfate 325 mg (65 mg iron) tablet,delayed release (DR/EC) 325 mg PO DAILY sennosides [senna] 8.6 mg Tablet 8.6 mg PO DAILY PRN (Reason: Constipation) insulin glargine [Lantus U-100 Insulin] 100 unit/mL Solution 20 unit subcut BEDTIME Qty: 10 0RF insulin lispro [Admelog U-100 Insulin lispro] 100 unit/mL Solution See Protocol subcut QIDACHS Qty: 10 0RF Protocol: Insulin Correction Scale Less than or equal to 110 ---- Give (units): 0 111 to 150 Give (units): 0 151 to 200 Give (units): 2 201 to 250 Give (units): 4 251 to 300 Give (units): 6 301 to 350 Give (units): 8 Greater than 350 Give (units): 10 Call MD if Blood Glucose > : 350 Rx Instructions: BG <111 0 units, 111-150 - 0 units, 151-200 2 units, 201-250 4 units, 251-300 6 units, 301-350 8 units, >350 10 units acetaminophen 325 mg Tablet 650 mg PO Q4H PRN (Reason: Fever Or Pain) acetaminophen 650 mg Suppository 650 mg MN Q4H PRN (Reason: Fever Or Pain) ondansetron HCl 4 mg Tablet 4 mg PO Q6H PRN (Reason: Nausea And Vomiting) guaifenesin 100 mg/5 mL Liquid 200 mg PO Q4H PRN (Reason: Cough) magnesium hydroxide [Milk of Magnesia] 400 mg/5 mL Suspension 30 ml PO DAILY PRN (Reason: Constipation) Rx Instructions: For no BM in 3 days bisacodyl 10 mg Suppository 10 mg MN DAILY PRN (Reason: Constipation) Rx Instructions: For no BM if M.O.M ineffective Fleet Enema 19-7 gram/118 mL Enema 118 ml MN DAILY PRN (Reason: Constipation) Rx Instructions: For no BM and if Bisacodyl supp. ineffective naloxone [Narcan] 4 mg/actuation [place],Non-Aerosol 4 mg INTRANASAL Q3M PRN (Reason: Opioid Reversal) Rx Instructions: spray 1 dose into ONE nostril; alternate nostrils w each dose until help arrives glucagon HCl [Glucagon (HCl) Emergency Kit] 1 mg Recon Soln 1 mg SUBCUT Q20M PRN (Reason: low blood sugar) Rx Instructions: until target blood sugar attained losartan 50 mg tablet 100 mg PO DAILY Protocol: Hold for SBP< HOLD for SBP < : 90 hydralazine 25 mg tablet 50 mg PO Q6H Protocol: Hold for SBP< HOLD for SBP < : 90 ceftriaxone 1 gram Recon Soln 1 g IVPUSH Q24H Qty: 1 0RF loratadine 10 mg Tablet 10 mg PO DAILY cholecalciferol (vitamin D3) [Vitamin D3] 50 mcg (2,000 unit) Capsule 50 mcg PO DAILY (DME) blood-glucose meter [FreeStyle Lite Meter] Kit See Rx Instructions .ROUTE .MEDSUPPLY Qty: 1 0RF Rx Instructions: As directed (DME) FreeStyle Lite Strips Strip See Rx Instructions .ROUTE .MEDSUPPLY Qty: 100 11RF Rx Instructions: As directed three times a day (DME) lancets [FreeStyle Lancets] 28 gauge misc See Rx Instructions .ROUTE .MEDSUPPLY Qty: 100 11RF Rx Instructions: Three times a day rosuvastatin 5 mg tablet 5 mg PO DAILY sertraline 50 mg tablet 50 mg PO DAILY omeprazole 40 mg capsule,delayed release(DR/EC) 40 mg PO DAILY@0630 Print Language: Luxembourgish
[2025-01-18 10:36] VITALS: BP 124/86; PULSE 71; RESP 16; TEMP 36.6; O2SAT 97; BMI 22.0
--- NOTE | 2025-01-18 10:38 | ECG_ITS ---
Test Reason : DIZZINESS Blood Pressure : */* mmHG Vent. Rate : 67 BPM Atrial Rate : 67 BPM P-R Int : 164 ms QRS Dur : 74 ms QT Int : 386 ms P-R-T Axes : 57 0 24 degrees QTcB Int : 407 ms Normal sinus rhythm Inferior infarct , age undetermined Abnormal ECG When compared with ECG of 28-Nov-2023 12:32, No significant changes seen Referred By: Mary Trinidad Electronically Signed By: ASHLEY SNYDER
--- OUTSIDE RECORDS SUMMARY | 2025-01-18 11:11 | XMS_ITS ---
Author Organization [facility] Care Team Providers Care Firesetter Name Role Phone Kyra Adams Unavailable Unavailable Silver Brooks Unavailable Unavailable Magdi Orozco Unavailable Unavailable Curly Brown Unavailable Unavailable Allergies and adverse reactions Code CodeSystem Substance Reaction Severity StartDate Concern Status 93633 RXNORM amLODIPine Swelling (code- 94069096, SNOMED CT) Moderate 12/01/2023 active 2582 RXNORM Clindamycin Diarrhea caused by drug (code- 881945543, SNOMED CT) Moderate 12/01/2023 active 4053 RXNORM Erythromycin Accidental even t (code- 553613781, SNOMED CT) Unknown 12/01/2023 active Nephramine Swelling (code- 71696872, SNOMED CT) Moderate 12/01/[address] Penicillins Eruption (code- 311534995, SNOMED CT) Moderate 12/01/2023 active Care Team Name Role Address Phone Organization Dates Silver Brooks PCP [address], [address], [place] (Office): : [facility] 12/01/2023 - 12/20/2023 Kyra Adams [place], [facility] 12/01/2023 - 12/20/2023 Magdi Orozco [place], [place] [facility] 12/01/2023 - 12/20/2023 Curly Brown [address] [place], [address], [place] (Office): [facility] 12/01/2023 - 12/20/2023 Immunizations Immunization Status Vaccine Details Vaccine Code CodeSystem Date Notes Influenza cancelled Influenza, high-dose, split virus, quadrivalent, injectable, preservative free 197 CVX created date: 12/06/2023 consent date: 12/06/2023 Educated by Melanie Mederos on 12/06/2023 Mental Status Section Date Assessment Total Score Description 12/19/2023 BIMS 15 cognitively int act CAM 0 No delirium ind icated PHQ-9 00 12/07/2023 BIMS 15 cognitively int act CAM 0 No delirium ind icated PHQ-9 01 minimal depress ion Insurance Providers Coverage Status Coverage Type Relationship to Subscriber Member Identifier Subscriber Identifier Group Identifier Payer Identifier and Other information 2023 Code: 51 Code System OID:[id number]. 5 Code System Name: Source of Payment Typology (PHDSC) Display: Managed Care (Private) Translation: Code: Code System: OID:[id number] .[id number]. 1336 Code System Name: Insurance Type Code ([id number]) Display Name: Health Maintenance Organization (HMO) Plan Code: SELF Code System Name: HL7 RoleCode Code System OID:[id number] Display Name: Self [id number] Root: [id number] Payer Name: [facility] [place] Address: [facility] [id number] City: [place] State: [place] Country: [place] Code: 81 Code System OID:[id number] .[id number]. 5 Code System Name: Source of Payment Typology (PHDSC) Display: Self Pay Translation: Code: 09 Code System: OID:[id number] .[id number]. 1336 Code System Name: Insurance Type Code ([id number]) Display Name: Self-pay Problems Problem # Description Date of onset Resolved Date Code CodeSystem Concern Status 1 NEUROMUSCULAR DYSFUNCTION OF BLADDER, UNSPECIFIED 12/05/[address] active 2 NEED FOR ASSISTANCE WITH PERSONAL CARE 12/03/[address] active 3 UNSTEADINESS ON FEET 12/03/[address] active 4 UNSPECIFIED ABNORMALITIES OF GAIT AND MOBILITY 12/02/[address] active 5 CHRONIC KIDNEY DISEASE, STAGE 3 UNSPECIFIED 12/01/[address] active 6 ESSENTIAL (PRIMARY) HYPERTENSION 12/01/[address] active 7 FRACTURE OF UNSPECIFIED PART OF NECK OF LEFT FEMUR, SUBSEQUENT ENCOUNTER FOR CLOSED FRACTURE WITH ROUTINE HEALING 12/01/[address] active 8 HYPERLIPIDEMIA, UNSPECIFIED 12/01/[address] active 9 HYPOXEMIA 12/01/[address] active 10 PRESENCE OF LEFT ARTIFICIAL HIP JOINT 12/01/[address] active 11 PRESENCE OF UROGENITAL IMPLANTS 12/01/[address] active 12 RETENTION OF URINE, UNSPECIFIED 12/01/[address] active 13 TYPE 2 DIABETES MELLITUS WITH UNSPECIFIED COMPLICATIONS 12/01/[address] active 14 UNSPECIFIED FALL, SUBSEQUENT ENCOUNTER 12/01/[address] active Reason for Referral No Reasons for Referral Entered Social History Social History Observation Description Start Date End Date Code Code System Current Smoking Status Tobacco smoking consumption unknown 897871269 SNOMED CT Sex Assigned At Female 1960 74902-0 LOINC Gender Identity Sexual Orientation Vital Signs Code Code System Vitals Name Values and Units Timing Information 29485-2 LOINC Pain Level Value=0.0 12/19/2023 08510-7 LOINC Weight Xpjow=049.4 Units=Lbs 03/2023 8302-2 LOINC Height Value=65.0 Units=Inches 12/08/2023 16877-9 LOINC O2 % BldC Oximetry Value=90.0 Units= % 12/01/2023 9279-1 [facility] Respiratory Rate Value=18.0 Units=/m in 12/01/2023 8310-5 [facility] Body Temperature Value=96.2 Units= F 12/01/2023 8462-4 [facility] Blood Pressure-Diastolic Value=70 Un its=mmHg 12/01/2023 8480-6 [facility] Blood Pressure-Systolic Zjipi=095 Un its=mmHg 12/01/2023 8867-4 [facility] Heart rate Value=85.0 Units=/min
--- OUTSIDE RECORDS SUMMARY | 2025-01-18 11:11 | XMS_ITS | Encounter Summary ---
Author Organization [facility] Address [address] [place] [address] Care Team Providers Care Security Intern Name Role Phone Kristin Bellamy MD Primary Care Provider [phone] Encounter Details Date Type Department Care Team (Late st Contact Info) Description 04/23/[address] [facility] - Main Lab [address] [facility] [place] [address] Gilson Davidson MD [address] [place] [phone] Type 2 diabetes mellitus without complications (CMS/HCC V24, CMS/HCC V28); Essential (primary) hypertension Social History Tobacco Use Types Packs/Day Years Used Date Smoking Tobacco: Former Cigarettes 0 Q uit: 02/13/2001 Smokeless Tobacco: Never Alcohol [...] EDT Type 2 diabetes mellitus without complications ([facility]/HCC) Essential (primary) hypertension documented in this encounter Results * (ABNORMAL) Basic metabolic panel (04/24/2024 5:44 AM EDT) Sodium 140 133 - 145 mmol/L LAB CHEMISTRY METHOD 04/24/2024 10:40 AM [facility] Potassium 4.0 3.5 - 5.5 mmol/L LAB CHEMISTRY METHOD 04/24/2024 10:40 AM [facility] Chloride 104 96 - 110 mmol/L LAB CHEMISTRY METHOD 04/24/2024 10:40 AM [facility] CO2 26 21 - 32 mmol/L LAB CHEMISTRY METHOD 04/24/2024 10:40 AM [facility] Anion Gap 10 3 - 11 LAB CHEMISTRY METHOD 04/24/2024 10:40 AM [facility] Glucose 112(H) 70 - 100 mg/dL LAB CHEMISTRY METHOD 04/24/2024 10:40 AM [facility] BUN 16 5 - 25 mg/dL LAB CHEMISTRY METHOD 04/24/2024 10:40 AM [facility] Creatinine 1.24(H) 0.50 - 1.10 mg/dL LAB CHEMISTRY METHOD 04/24/2024 10:40 AM [facility] eGFR 49(L) >=60 mL/min/1. 73m2 LAB CHEMISTRY METHOD 04/24/2024 10:40 AM [facility] Comment:Calculation based on the Chronic Kidney Disease Epidemiology Collaboration (CKD-EPI) equation refit without adjustment for race. BUN/Creatinine Ratio 12.9 LAB CHEMISTRY METHOD 04/24/2024 10:40 AM [facility] Calcium 9.1 8.5 - 10.5 mg/dL LAB CHEMISTRY METHOD 04/24/2024 10:40 AM EDT [facility] Blood Venous blood specimen / Unknown Venipuncture / Unknown 04/24/2024 5:44 AM EDT 04/24/2024 9:49 AM EDT us Gilson Davidson MD LAB BLOOD ORDERABLES Final Resul t [facility] [address] [place] [address], * (ABNORMAL) Complete blood count (04/24/2024 5:44 AM EDT) WBC 7.3 4.8 - 10.8 K/mcL LAB HEMETOLOGY METHOD 04/24/2024 10:12 AM [facility] RBC 3.90 3.80 - 4.80 M/[facility] LAB HEMETOLOGY METHOD 04/24/2024 10:12 AM [facility] Hemoglobin 10.5(L) 11.5 - 16.0 g/dL LAB HEMETOLOGY METHOD 04/24/2024 10:12 AM [facility] Hematocrit 32.8(L) 35.0 - 47.0 % LAB HEMETOLOGY METHOD 04/24/2024 10:12 AM [facility] MCV 85.0 79.0 - 98.0 FL LAB [facility]EMETOLOGY [facility] MCH 27.2 27.0 - 32.0 pcg LAB HEMETOLOGY METHOD 04/24/2024 10:12 AM [facility] MCHC 32.0 32.0 - 37.0 g/dL LAB HEMETOLOGY METHOD 04/24/2024 10:12 AM [facility] RDW 15.6(H) 11.0 - 15.0 % LAB HEMETOLOGY METHOD 04/24/2024 10:12 AM EDT [facility] Platelets 275 130 - 400 K/mcL LAB HEMETOLOGY METHOD 04/24/2024 10:12 AM EDT [facility] MPV 9.8 7.0 - 11.0 FL LAB HEMETOLOGY METHOD 04/24/2024 10:12 AM EDT [facility] NRBC 0.0 <1.0 % LAB HEMETOLOGY METHOD 04/24/2024 10:12 AM EDT [facility] NRBC Absolute 0.00 <0.10 K/mcL LAB HEMETOLOGY METHOD 04/24/2024 10:12 AM EDT [facility] Blood Venous blood specimen / Unknown Venipuncture / Unknown 04/24/2024 5:44 AM EDT 04/24/2024 9:49 AM EDT us Gilson Davidson MD LAB BLOOD ORDERABLES Final Resul t Performing Organization Address City/[facility]/ZIP Co de Phone Number [facility] [address] [place] [address], [place] [phone] * (ABNORMAL) Sedimentation rate (04/24/2024 5:44 AM EDT) Sed Rate 90(H) 0 - 30 mm/hr LAB HEMETOLOGY METHOD 04/24/2024 10:28 AM EDT [facility] Blood Venous blood specimen / Unknown Venipuncture / Unknown 04/24/2024 5:44 AM EDT 04/24/2024 9:49 AM EDT us Gilson Davidson MD LAB BLOOD ORDERABLES Final Resul t Performing Organization Address City/[facility]/ZIP Co de Phone Number [facility] [address] [place] [address], [place] [phone] * C-reactive protein (04/24/2024 5:44 AM EDT) C-Reactive Protein 0.30 <=0.50 mg/dL LAB CHEMISTRY METHOD 04/24/2024 10:41 AM EDT [facility] ([facility] Blood Venous blood specimen / Unknown Venipuncture / Unknown 04/24/2024 5:44 AM EDT 04/24/2024 9:49 AM EDT us Gilson Davidson MD LAB BLOOD ORDERABLES Final Resul t [facility] ([facility]) [facility] [address] [place] [address], documented in this encounter Visit Diagnoses Diagnosis Type 2 diabetes mellitus without complications (CMS/HCC V24, CMS/HCC V28) Essential (primary) hypertension Unspecified essential hypertension documented in this encounter Care Teams Security Intern Relationship Specialty Start Date End Date Kristin Bellamy MD [address] [facility] [address] [place], [place] PCP - General Internal Medicine 11/29/19 documented as of this encounter
--- OUTSIDE RECORDS SUMMARY | 2025-01-18 11:11 | XMS_ITS | Clinical Summary ---
Author Organization [address] Address [address] [place] [address] Phone Care Team Providers Care Vegetable Scullion Name Role Phone Kristin Bellamy MD Primary Care Provider [phone] Surgical History Surgery Date Site/Laterality Comments OTHER SURGICAL HISTORY 2015 PROCEDURE: [place] VITRECTOMY MCHNL PARS PLNA FOCAL ENDOLASER PC FOOT SURGERY 2015 PROCEDURE: HISTORICAL FOOT SURGERY CATARACT EXTRACTION 2014 Left PROCEDURE: HISTORICAL CATARACT REMOVAL Medical History Medical History Date Comments Anemia DX:Anemia Hyperlipidemia DX:Hyperlipidemi a Essential hypertension DX:Essent ial hypertension Neuropathy DX:Neuropathy Presence of other orthopedic joint implants DX:Presence of other orthope dic joint implants Retinopathy DX:Retinopathy Charcot foot due to diabetes mellitus ([facility] V24, [facility] V28) DX:Charcot foot due to diab etes mellitus (HCC) Type 2 diabetes mellitus wit h eye manifestations ([facility] V24, [facility] V28) 07/06/2020 DX:Type 2 diabetes mellitus with eye manifestations (HCC) Diabetes mellitus type 2 wit h neurological manifestations ([facility] V24, [facility] V28) 07/06/2020 DX:Diabetes mellitus type 2 with neurological manifestations (HCC) Diabetes mellitus with catar act ([facility] V24, [facility] V28) 07/06/2020 DX:Diabetes mellitus with c ataract ([facility]); COMMENT: Left eye Asthma 07/06/2020 DX:Asthma DM (diabetes mellitus), type 2 with peripheral vascular complications ([facility] V24, [facility] V28) 07/06/2020 DX:DM (diabetes mellitus), type 2 with peripheral vascular complications (HCC) Gout 07/06/2020 DX:Gout Diabetic ulcer of right foot ([facility] V24, [facility]/HCC V28) 07/06/2020 DX:Diabetic ulcer of right f oot ([facility]); COMMENT: Right plantar foot - [facility] History of cataract [...] Last Done Comments Breast Cancer Screening 1961 Colorectal Cancer Screening: Colonoscopy 1961 Diabetes: Annual Foot Exam 08/24/1971 Diabetes: Annual Retina Eye Exam 08/24/1971 DTaP,Tdap,and Td Vaccines (1 - Tdap) 1980 Pneumococcal Vaccine: 50+ Years (1 of 2 - PCV) 1980 Cervical Cancer Screening: Pap Smear 1982 RSV Immunization Adult Patients (1 - Risk 50-74 years 1-dose series) 08/24/2011 Zoster Vaccines (1 of 2) 08/24/2011 Cholesterol Screening (Lipid Panel) 01/05/2024 Diabetes: Annual Urine Albumin-Creatinine Ratio (uACR) 01/05/2024 HIV Screening 01/05/2024 Hepatitis C Screening 01/05/2024 Social Influencers of Health Screening 01/05/2024 Depression Screening 02/14/2024 Diabetes: Blood Sugar Control Test (HGBA1C) 10/07/2024 04/09/2024, 01/05/2024 COVID-19 Vaccine ( - season) 2024 03/19/2020, 02/20/2020 Influenza Vaccine (#1) 2024 , 10/26/2018, 11/27/2017 Diabetes: Annual GFR (Glomerular Filtration Rate) 06/19/2025 06/19/2024, 06/12/2024, 06/05/2024, Additional history exists 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/CHF/CAD Annual BMP Blood Test 06/19/2025 06/19/2024, 06/12/2024, 06/05/2024, Additional history exists HIB Vaccines Aged Out [...] Procedure Name Priority Date/Time Associated Diagnosis Comments COMPREHENSIVE METABOLIC PANEL Routine 06/19/2024 5:32 AM EDT [facility] (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 antibiotics Hyperlipidemia, unspecified Other acute osteomyelitis, right ankle and foot (CMS/[facility] V24, [facility] V28) Charcot's joint, unspecified ankle and foot HEMOGLOBIN A1C Routine 04/09/2024 6:31 AM EST Essential (primary) hypertension Hypothyroidism, unspecified Type 2 diabetes mellitus without complications ([facility]) Dependence on renal dialysis ([facility]) from Last 3 Months or Most Recently Relevant to Health Maintenance Results * (ABNORMAL) Comprehensive metabolic panel (06/19/2024 5:32 AM EDT) Sodium 139 133 - 145 mmol/L LAB CHEMISTRY METHOD 06/19/2024 11:25 AM EDT [facility] Potassium 4.3 3.5 - 5.5 mmol/L LAB CHEMISTRY METHOD 06/19/2024 11:25 AM [facility] Chloride 104 96 - 110 mmol/L LAB CHEMISTRY METHOD 06/19/2024 11:25 AM [facility] CO2 27 21 - 32 mmol/L LAB CHEMISTRY METHOD 06/19/2024 11:25 AM [facility] Anion Gap 8 3 - 11 LAB CHEMISTRY METHOD 06/19/2024 11:25 AM [facility] Glucose 70 70 - 100 mg/dL LAB CHEMISTRY METHOD 06/19/2024 11:25 AM [facility] BUN 34(H) 5 - 25 mg/dL LAB CHEMISTRY METHOD 06/19/2024 11:25 AM [facility] Creatinine 1.33(H) 0.50 - 1.10 mg/dL LAB CHEMISTRY METHOD 06/19/2024 11:25 AM [facility] eGFR 45(L) >=60 mL/min/1. 73m2 LAB CHEMISTRY METHOD 06/19/2024 11:25 AM [facility] Comment:Calculation based on the Chronic Kidney Disease Epidemiology Collaboration (CKD-EPI) equation refit without adjustment for race. BUN/Creatinine Ratio 25.6 LAB CHEMISTRY METHOD 06/19/2024 11:25 AM [facility] Calcium 9.1 8.5 - 10.5 mg/dL LAB CHEMISTRY METHOD 06/19/2024 11:25 AM [facility] AST (SGOT) 20 10 - 42 unit/L LAB CHEMISTRY METHOD 06/19/2024 11:25 AM [facility] ALT (SGPT) 18 10 - 60 unit/L LAB CHEMISTRY METHOD 06/19/2024 11:25 AM [facility] Alkaline Phosphatase 67 42 - 121 unit/L LAB CHEMISTRY METHOD 06/19/2024 11:25 AM [facility] Total Protein 6.8 6.0 - 8.0 g/dL LAB CHEMISTRY METHOD 06/19/2024 11:25 AM EDT [facility] Albumin 3.3 3.2 - 5.0 g/dL LAB CHEMISTRY METHOD 06/19/2024 11:25 AM EDT [facility] Total Bilirubin 0.5 0.0 - 1.4 mg/dL LAB CHEMISTRY METHOD 06/19/2024 11:25 AM EDT [facility] Blood Venous blood specimen / Unknown Venipuncture / Unknown 06/19/2024 5:32 AM EDT 06/19/2024 10:14 AM EDT us Gilson Davidson MD LAB BLOOD ORDERABLES Final Resul t Performing Organization Address [facility]/ZIP Co de Phone Number [facility] [address] [place] [address], [place] [phone] * (ABNORMAL) Hemoglobin A1c (04/09/2024 6:31 AM EST) Hemoglobin A1C 7.8(H) <6.5 % LAB CHEMISTRY METHOD 04/09/2024 1:46 PM EST [facility] Mean Bld Glu Estim. 177 mg/dL LAB CHEMISTRY METHOD 04/09/2024 1:46 PM EST [facility] Blood Venous blood specimen / Unknown Venipuncture / Unknown 04/09/2024 6:31 AM EST 04/09/2024 9:10 AM EST us Gilson Davidson MD LAB BLOOD ORDERABLES Final Resul t Performing Organization Address City/[facility]/ZIP Co de Phone Number [facility] [address] [place] [address], [place] [phone] from Last 3 Months or Most Recently Relevant to Health Maintenance Insurance [facility] Advance Directives Documents on File Type Date Recorded Patient Practice Management Consultant Expl [facility] Care Decision (hx) 10/13/2014 AD VILLANUEVA DIRECTIVE Care Teams Vegetable Scullion Relationship Specialty Start Date End Date Kristin Bellamy MD [address] [facility] [address] [place], [place] PCP - General Internal Medicine 11/29/19
--- OUTSIDE RECORDS SUMMARY | 2025-01-18 11:11 | XMS_ITS | Encounter Summary ---
Author Organization [facility] Address [address] [place] [address] Care Team Providers Care Underwriting Operations Manager Name Role Phone Kristin Bellamy MD Primary Care Provider [phone] Encounter Details Date Type Department Care Team (Late st Contact Info) Description 02/20/2024 Lab Requisition [facility] - Main Lab [address] [facility] [place] [address] Gilson Davidson MD [address] [place] [phone] Hyperlipidemia, unspecified; Other specified diabetes mellitus [...] LAB HEMETOLOGY METHOD 02/21/2024 11:29 AM EST [facility] Blood Venous blood specimen / Unknown Venipuncture / Unknown 02/21/2024 7:35 AM EST 02/21/2024 10:10 AM EST us Gilson Davidson MD LAB BLOOD ORDERABLES Final Resul t [facility] [address] [place] [address], * C-reactive protein (02/21/2024 7:35 AM EST) Pathologist [facility] C-Reactive Protein <0.29 <=0.50 mg/dL LAB CHEMISTRY METHOD 02/21/2024 11:53 AM EST [facility] Blood Venous blood specimen / Unknown Venipuncture / Unknown 02/21/2024 7:35 AM EST 02/21/2024 10:10 AM EST us Gilson Davidson MD LAB BLOOD ORDERABLES Final Resul t [facility] [address] [place] [address], * (ABNORMAL) Basic metabolic panel (02/21/2024 7:35 AM EST) Sodium 138 133 - 145 mmol/L LAB CHEMISTRY METHOD 02/21/2024 11:53 AM [facility] Potassium 4.4 3.5 - 5.5 mmol/L LAB CHEMISTRY METHOD 02/21/2024 11:53 AM [facility] Chloride 106 96 - 110 mmol/L LAB CHEMISTRY METHOD 02/21/2024 11:53 AM [facility] CO2 28 21 - 32 mmol/L LAB CHEMISTRY METHOD 02/21/2024 11:53 AM [facility] Anion Gap 4 3 - 11 LAB CHEMISTRY METHOD 02/21/2024 11:53 AM [facility] Glucose 94 70 - 100 mg/dL LAB CHEMISTRY METHOD 02/21/2024 11:53 AM [facility] BUN 23 5 - 25 mg/dL LAB CHEMISTRY METHOD 02/21/2024 11:53 AM [facility] Creatinine 1.31(H) 0.50 - 1.10 mg/dL LAB CHEMISTRY METHOD 02/21/2024 11:53 AM [facility] eGFR 46(L) >=60 mL/min/1. 73m2 LAB CHEMISTRY METHOD 02/21/2024 11:53 AM [facility] Comment:Calculation based on the Chronic Kidney Disease Epidemiology Collaboration (CKD-EPI) equation refit without adjustment for race. BUN/Creatinine Ratio 17.6 LAB CHEMISTRY METHOD 02/21/2024 11:53 AM [facility] Calcium 9.2 8.5 - 10.5 mg/dL LAB CHEMISTRY METHOD 02/21/2024 11:53 AM [facility] Blood Venous blood specimen / Unknown Venipuncture / Unknown 02/21/2024 7:35 AM EST 02/21/2024 10:10 AM EST us Gilson Davidson MD LAB BLOOD ORDERABLES Final Resul t [facility] [address] [place] [address], * (ABNORMAL) Complete blood count (02/21/2024 7:35 AM EST) WBC 8.6 4.8 - 10.8 K/mcL LAB HEMETOLOGY METHOD 02/21/2024 11:23 AM [facility] RBC 4.20 3.80 - 4.80 M/mcL LAB HEMETOLOGY METHOD 02/21/2024 11:23 AM [facility] Hemoglobin 11.7 11.5 - 16.0 g/dL LAB HEMETOLOGY METHOD 02/21/2024 11:23 AM [facility] Hematocrit 37.3 35.0 - 47.0 % LAB HEMETOLOGY METHOD 02/21/2024 11:23 AM [facility] MCV 88.6 79.0 - 98.0 FL LAB HEMETOLOGY METHOD 02/21/2024 11:23 AM [facility] MCH 27.8 27.0 - 32.0 pcg LAB HEMETOLOGY METHOD 02/21/2024 11:23 AM [facility] MCHC 31.4(L) 32.0 - 37.0 g/dL LAB HEMETOLOGY METHOD 02/21/2024 11:23 AM [facility] RDW 14.3 11.0 - 15.0 % LAB HEMETOLOGY METHOD 02/21/2024 11:23 AM EST [facility] Platelets 464(H) 130 - 400 K/mcL LAB HEMETOLOGY METHOD 02/21/2024 11:23 AM EST [facility] MPV 10.2 7.0 - 11.0 FL LAB HEMETOLOGY METHOD 02/21/2024 11:23 AM EST [facility] NRBC 0.0 <1.0 % LAB HEMETOLOGY METHOD 02/21/2024 11:23 AM [facility] NRBC Absolute 0.00 <0.10 K/mcL LAB HEMETOLOGY METHOD 02/21/2024 11:23 AM [facility] Blood Venous blood specimen / Unknown Venipuncture / Unknown 02/21/2024 7:35 AM EST 02/21/2024 10:10 AM EST us Gilson Davidson MD LAB BLOOD ORDERABLES Final Resul t [facility] [address] [place] [address], documented in this encounter Visit Diagnoses Diagnosis Hyperlipidemia, unspecified Other specified diabetes mellitus with other specified complication ([facility]/HCC V24, [facility]/HCC V28) Other acute osteomyelitis, right ankle and foot (CMS/HCC V24, [facility] V28) Type 2 diabetes mellitus without complications (CMS/HCC V24, CMS/HCC V28) Essential (primary) hypertension Unspecified essential hypertension documented in this encounter Care Teams Underwriting Operations Manager Relationship Specialty Start Date End Date Kristin Bellamy MD [address] [place] [address] PCP - General Internal Medicine 11/29/19 documented as of this encounter
--- OUTSIDE RECORDS SUMMARY | 2025-01-18 11:11 | XMS_ITS | Clinical Summary ---
Author Organization [address] Address [address] [place] [phone] Care Team Providers Care Investment Banking Associate Name Role Phone Kristin Bellamy MD Primary Care Provider Allergies Active Allergy Reactions Criticality Noted Date [...] 2 Dose Standard Series) 08/24/2011 Influenza vaccine 09/13/2024 Covid-19 vaccine series (1 - 2024- season) 2024 RSV Immunization (1 - 1-dose 75+ series) 2036 Meningococcal B Vaccine Aged Out No l onger eligible based on patient's age to complete this topic Meningococcal Vaccine Aged Out No marlyn crow eligible based on patient's age to complete this topic Insurance [employer] on file C[employer] on file [employer] on file Care Teams Investment Banking Associate Relationship Specialty Start Date End Date Kristin Bellamy MD PCP - General Internal Medicine 07/31/17
--- OUTSIDE RECORDS SUMMARY | 2025-01-18 11:11 | XMS_ITS | Encounter Summary ---
Author Organization [facility] Address [address] [place] [address] Care Team Providers Care Casting Agent Name Role Phone Kristin Bellamy MD Primary Care Provider [phone] Encounter Details Date Type Department Care Team (Late st Contact Info) Description 04/30/2024 Lab Requisition [facility] - Main Lab [address] [facility] [place] [address] Gilson Davidson MD [address] [place] [phone] Type 2 diabetes mellitus without complications [...] METHOD 05/01/2024 12:22 PM EDT [facility] Blood Venous blood specimen / Unknown Venipuncture / Unknown 05/01/2024 7:45 AM EDT 05/01/2024 10:47 AM EDT us Gilson Davidson MD LAB BLOOD ORDERABLES Final Resul t [facility] [address] [place] [address], [place] [phone] * Thyroxine free (05/01/2024 7:45 AM EDT) Free T4 1.19 0.70 - 1.80 ng/dL LAB CHEMISTRY METHOD 05/01/2024 12:22 PM EDT [facility] Blood Venous blood specimen / Unknown Venipuncture / Unknown 05/01/2024 7:45 AM EDT 05/01/2024 10:47 AM EDT Gilson Davidson MD LAB BLOOD ORDERABLES Final Resul t Performing Organization Address [facility] Co de Phone Number [facility] [address] [place] [address], [place] [phone] * Vitamin D 25 hydroxy (05/01/2024 7:45 AM EDT) Pathologist [facility] Vit D, 25-Hydroxy 37.4 30.0 - 80.0 ng/mL LAB CHEMISTRY METHOD 05/01/2024 12:22 PM EDT [facility] Blood Venous blood specimen / Unknown Venipuncture / Unknown 05/01/2024 7:45 AM EDT 05/01/2024 10:47 AM EDT Gilson Davidson MD LAB BLOOD ORDERABLES Final Resul t Performing Organization Address City/[facility]/ZIP Co de Phone Number [facility] [address] [place] [address], [place] [phone] * Calcium, ionized (05/01/2024 7:45 AM EDT) Calcium Ionized 5.0 4.6 - 5.4 mg/dL 05/03/2024 1:34 PM EDT [facility] Comment: Test performed at [facility], [address] [place] [address] Catalina Caldwell MD, PhD - Fur Trapper Blood Venous blood specimen / Unknown Venipuncture / Unknown 05/01/2024 7:45 AM EDT 05/01/2024 10:47 AM EDT Gilson Davidson MD LAB BLOOD ORDERABLES Final Resul t [facility]EE[facility] CHAPPELL [address] [place] [address] * Albumin (05/01/2024 7:45 AM EDT) Pathologist [facility] Albumin 3.4 3.2 - 5.0 g/dL LAB CHEMISTRY METHOD 05/01/2024 11:56 AM EDT [facility] Blood Venous blood specimen / Unknown Venipuncture / Unknown 05/01/2024 7:45 AM EDT 05/01/2024 10:47 AM EDT Gilson Davidson MD LAB BLOOD ORDERABLES Final Resul t Performing Organization Address City/[facility] Co de Phone Number [facility] [address] [place] [address], * (ABNORMAL) Basic metabolic panel (05/01/2024 7:45 AM EDT) Sodium 139 133 - 145 mmol/L LAB CHEMISTRY METHOD 05/01/2024 11:56 AM EDT [facility] Potassium 4.6 3.5 - 5.5 mmol/L LAB CHEMISTRY METHOD 05/01/2024 11:56 AM EDT [facility] Chloride 105 96 - 110 mmol/L LAB CHEMISTRY METHOD 05/01/2024 11:56 AM EDT [facility] CO2 25 21 - 32 mmol/L LAB CHEMISTRY METHOD 05/01/2024 11:56 AM EDT [facility] Anion Gap 9 3 - 11 LAB CHEMISTRY METHOD 05/01/2024 11:56 AM EDT [facility] Glucose 80 70 - 100 mg/dL LAB CHEMISTRY METHOD 05/01/2024 11:56 AM EDT [facility] BUN 24 5 - 25 mg/dL LAB CHEMISTRY METHOD 05/01/2024 11:56 AM [facility] Creatinine 1.41(H) 0.50 - 1.10 mg/dL LAB CHEMISTRY METHOD 05/01/2024 11:56 AM EDT [facility] eGFR 42(L) >=60 mL/min/1. 73m2 LAB CHEMISTRY METHOD 05/01/2024 11:56 AM T [facility] Comment:Calculation based on the Chronic Kidney Disease Epidemiology Collaboration (CKD-EPI) equation refit without adjustment for race. BUN/Creatinine Ratio 17.0 LAB CHEMISTRY METHOD 05/01/2024 11:56 AM EDT [facility] Calcium 9.4 8.5 - 10.5 mg/dL LAB CHEMISTRY METHOD 05/01/2024 11:56 AM [facility] Blood Venous blood specimen / Unknown Venipuncture / Unknown 05/01/2024 7:45 AM EDT 05/01/2024 10:47 AM EDT us Gilson Davidson MD LAB BLOOD ORDERABLES Final Resul t [facility] [address] [place] [address], * (ABNORMAL) Complete blood count (05/01/2024 7:45 AM EDT) WBC 7.5 4.8 - 10.8 K/[facility] LAB HEMETOLOGY METHOD 05/01/2024 11:19 AM EDT [facility] RBC 4.40 3.80 - 4.80 M/mcL LAB HEMETOLOGY METHOD [facility] Hemoglobin 12.1 11.5 - 16.0 g/dL LAB HEMETOLOGY METHOD 05/01/2024 11:19 AM [facility] Hematocrit 38.8 35.0 - 47.0 % LAB HEMETOLOGY METHOD 05/01/2024 11:19 AM [facility] MCV 87.8 79.0 - 98.0 FL LAB HEMETOLOGY METHOD 05/01/2024 11:19 AM [facility] MCH 27.4 27.0 - 32.0 pcg LAB HEMETOLOGY METHOD 05/01/2024 11:19 AM [facility] MCHC 31.2(L) 32.0 - 37.0 g/dL LAB HEMETOLOGY METHOD 05/01/2024 11:19 AM [facility] RDW 15.9(H) 11.0 - 15.0 % LAB HEMETOLOGY METHOD 05/01/2024 11:19 AM [facility] Platelets 386 130 - 400 K/mcL LAB HEMETOLOGY METHOD 05/01/2024 11:19 AM [facility] MPV 10.4 7.0 - 11.0 FL LAB HEMETOLOGY METHOD 05/01/2024 11:19 AM [facility] NRBC 0.0 <1.0 % LAB HEMETOLOGY METHOD 05/01/2024 11:19 AM [facility] NRBC Absolute 0.00 <0.10 K/mcL LAB HEMETOLOGY METHOD 05/01/2024 11:19 AM [facility] Blood Venous blood specimen / Unknown Venipuncture / Unknown 05/01/2024 7:45 AM EDT 05/01/2024 10:47 AM EDT us Gilson Davidson MD LAB BLOOD ORDERABLES Final Resul t [facility] [address] [place] [address], [place] [phone] * (ABNORMAL) Sedimentation rate (05/01/2024 7:45 AM EDT) Sed Rate 91(H) 0 - 30 mm/hr LAB HEMETOLOGY METHOD 05/01/2024 1:04 PM EDT [facility] Blood Venous blood specimen / Unknown Venipuncture / Unknown 05/01/2024 7:45 AM EDT 05/01/2024 10:47 AM EDT Gilson Davidson MD LAB BLOOD ORDERABLES Final Resul t Performing Organization Address [facility] Co de Phone Number [facility] [address] [place] [address], [place] [phone] * C-reactive protein (05/01/2024 7:45 AM EDT) C-Reactive Protein 0.38 <=0.50 mg/dL LAB CHEMISTRY METHOD 05/01/2024 11:56 AM EDT [facility] Blood Venous blood specimen / Unknown Venipuncture / Unknown 05/01/2024 7:45 AM EDT 05/01/2024 10:47 AM EDT Gilson Davidson MD LAB BLOOD ORDERABLES Final Resul t Performing Organization Address [facility]/ZIP Co de Phone Number [facility] [address] [place] [address], [place] [phone] documented in this encounter Visit Diagnoses Diagnosis Type 2 diabetes mellitus without complications (CMS/HCC V24, CMS/HCC V28) Essential (primary) hypertension Unspecified essential hypertension Chronic kidney disease, unspecified documented in this encounter Care Teams Casting Agent Relationship Specialty Start Date End Date Kristin Bellamy MD [address] [place] [address] PCP - General Internal Medicine 11/29/19 documented as of this encounter
--- OUTSIDE RECORDS SUMMARY | 2025-01-18 11:12 | XMS_ITS | Encounter Summary ---
Author Organization [facility] Address [address] [place] [address] Care Team Providers Care Amusement Ride Operator Name Role Phone Kristin Bellamy MD Primary Care Provider [phone] Encounter Details Date Type Department Care Team (Late st Contact Info) Description 06/11/2024 Lab Requisition [facility] - Main Lab [address] [facility] [place] [address] Gilson Davidson MD [address] [place] [phone] Type 2 diabetes mellitus without complications (CMS/HCC V24, CMS/HCC V28); Essential (primary) hypertension; group home (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 antibiotics; Hyperlipidemia, unspecified; Charcot's joint, unspecified ankle and foot; Other acute osteomyelitis, right ankle and foot (CMS/HCC V24, [facility] V28) Social History Tobacco Use Types Packs/Day [...] Date/Time Associated Diagnosis Comments SEDIMENTATION RATE Routine 06/12/2024 7: 11 AM EDT Type 2 diabetes mellitus without complications (CMS/HCC V24, CMS/[facility] V28) Essential (primary) hypertension parts counterman (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 antibiotics Hyperlipidemia, unspecified Charcot's joint, unspecified ankle and foot Other acute osteomyelitis, right ankle and foot ([facility] V24, CMS/[facility] V28) COMPLETE BLOOD COUNT Routine 06/12/2024 7:11 AM EDT Type 2 diabetes mellitus without complications ([facility] V24, CMS/[facility] V28) Essential (primary) hypertension parts counterman (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 antibiotics Hyperlipidemia, unspecified Charcot's joint, unspecified ankle and foot Other acute osteomyelitis, right ankle and foot ([facility] V24, CMS/[facility] V28) C-REACTIVE PROTEIN Routine 06/12/2024 7: 11 AM EDT Type 2 diabetes mellitus without complications (CMS/[facility] V24, CMS/[facility] V28) Essential (primary) hypertension group home (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 antibiotics Hyperlipidemia, unspecified Charcot's joint, unspecified ankle and foot Other acute osteomyelitis, right ankle and foot ([facility] V24, CMS/[facility] V28) ALANINE AMINOTRANSFERASE Routine 06/12/2024 7:11 AM EDT Type 2 diabetes mellitus without complications ([facility] V24, CMS/[facility] V28) Essential (primary) hypertension parts counterman (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 antibiotics Hyperlipidemia, unspecified Charcot's joint, unspecified ankle and foot Other acute osteomyelitis, right ankle and foot (CMS/[facility] V24, CMS/[facility] V28) ASPARTATE AMINOTRANSFERASE Routine 06/12/2024 7:11 AM EDT Type 2 diabetes mellitus without complications ([facility] V24, CMS/[facility] V28) Essential (primary) hypertension group home (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 antibiotics Hyperlipidemia, unspecified Charcot's joint, unspecified ankle and foot Other acute osteomyelitis, right ankle and foot (CMS[facility] V24, CMS[facility] V28) ALKALINE PHOSPHATASE Routine 06/12/2024 7:11 AM EDT Type 2 diabetes mellitus without complications ([facility] V24, CMS/[facility] V28) Essential (primary) hypertension parts counterman (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 antibiotics Hyperlipidemia, unspecified Charcot's joint, unspecified ankle and foot Other acute osteomyelitis, right ankle and foot (CMS[facility] V24, CMS[facility] V28) BILIRUBIN, TOTAL Routine 06/12/2024 7:11 AM EDT Type 2 diabetes mellitus without complications (CMS[facility] V24, CMS[facility] V28) Essential (primary) hypertension parts counterman (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 antibiotics Hyperlipidemia, unspecified Charcot's joint, unspecified ankle and foot Other acute osteomyelitis, right ankle and foot (CMS/HCC V24, CMS[facility] V28) ALBUMIN Routine 06/12/2024 7:11 AM EDT Type 2 diabetes mellitus without complications (CMS/HCC V24, CMS[facility] V28) Essential (primary) hypertension parts counterman (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 antibiotics Hyperlipidemia, unspecified Charcot's joint, unspecified ankle and foot Other acute osteomyelitis, right ankle and foot (CMS/HCC V24, [facility] V28) BASIC METABOLIC PANEL Routine 06/12/2024 7:11 AM EDT Type 2 diabetes mellitus without complications (CMS/HCC V24, CMS[facility] V28) Essential (primary) hypertension parts counterman (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 antibiotics Hyperlipidemia, unspecified Charcot's joint, unspecified ankle and foot Other acute osteomyelitis, right ankle and foot (CMS/HCC V24, CMS/HCC V28) documented in this encounter Results * Alanine aminotransferase (06/12/2024 7:11 AM EDT) ALT (SGPT) 14 10 - 60 unit/L LAB CHEMISTRY METHOD 06/12/2024 6:51 PM EDT [facility] Blood Venous blood specimen / Unknown Venipuncture / Unknown 06/12/2024 7:11 AM EDT 06/12/2024 11:15 AM EDT us Gilson Davidson MD LAB BLOOD ORDERABLES Final Resul t [facility] [address] [place] [address], [place] [phone] * Aspartate aminotransferase (06/12/2024 7:11 AM EDT) AST (SGOT) 16 10 - 42 unit/L LAB CHEMISTRY METHOD 06/12/2024 6:51 PM EDT [facility] Blood Venous blood specimen / Unknown Venipuncture / Unknown 06/12/2024 7:11 AM EDT 06/12/2024 11:15 AM EDT us Gilson Davidson MD LAB BLOOD ORDERABLES Final Resul t Performing Organization Address City/[facility]/ZIP Co de Phone Number [facility] [address] [place] [address], [place] [phone] * Bilirubin, total (06/12/2024 7:11 AM EDT) Total Bilirubin 0.3 0.0 - 1.4 mg/dL LAB CHEMISTRY METHOD 06/12/2024 6:51 PM EDT [facility] Blood Venous blood specimen / Unknown Venipuncture / Unknown 06/12/2024 7:11 AM EDT 06/12/2024 11:15 AM EDT us Gilson Davidson MD LAB BLOOD ORDERABLES Final Resul t [facility] [address] [place] [address], [place] [phone] * Alkaline phosphatase (06/12/2024 7:11 AM EDT) Alkaline Phosphatase 75 42 - 121 unit/L LAB CHEMISTRY METHOD 06/12/2024 6:51 PM EDT [facility] Blood Venous blood specimen / Unknown Venipuncture / Unknown 06/12/2024 7:11 AM EDT 06/12/2024 11:15 AM EDT us Gilson Davidson MD LAB BLOOD ORDERABLES Final Resul t Performing Organization Address [facility]/ZIP Co de Phone Number [facility] [address] [place] [address], * Albumin (06/12/2024 7:11 AM EDT) Albumin 3.5 3.2 - 5.0 g/dL LAB CHEMISTRY METHOD 06/12/2024 6:51 PM EDT [facility] Blood Venous blood specimen / Unknown Venipuncture / Unknown 06/12/2024 7:11 AM EDT 06/12/2024 11:15 AM EDT Gilson Davidson MD LAB BLOOD ORDERABLES Final Resul t Performing Organization Address [facility] Co de Phone Number [facility] [address] [place] [address], * (ABNORMAL) Basic metabolic panel (06/12/2024 7:11 AM EDT) Pathologist [facility] Sodium 139 133 - 145 mmol/L LAB CHEMISTRY METHOD 06/12/2024 6:51 PM [facility] Potassium 4.6 3.5 - 5.5 mmol/L LAB CHEMISTRY METHOD 06/12/2024 6:51 PM [facility] Chloride 105 96 - 110 mmol/L LAB CHEMISTRY METHOD 06/12/2024 6:51 PM [facility] CO2 26 21 - 32 mmol/L LAB CHEMISTRY METHOD 06/12/2024 6:51 PM [facility] Anion Gap 8 3 - 11 LAB CHEMISTRY METHOD 06/12/2024 6:51 PM [facility] Glucose 75 70 - 100 mg/dL LAB CHEMISTRY METHOD 06/12/2024 6:51 PM [facility] BUN 38(H) 5 - 25 mg/dL LAB CHEMISTRY METHOD 06/12/2024 6:51 PM EDT [facility] Creatinine 1.43(H) 0.50 - 1.10 mg/dL LAB CHEMISTRY METHOD 06/12/2024 6:51 PM EDT [facility] eGFR 42(L) >=60 mL/min/1. 73m2 LAB CHEMISTRY METHOD 06/12/2024 6:51 PM EDT [facility] Comment:Calculation based on the Chronic Kidney Disease Epidemiology Collaboration (CKD-EPI) equation refit without adjustment for race. BUN/Creatinine Ratio 26.6 LAB CHEMISTRY METHOD 06/12/2024 6:51 PM T [facility] Calcium 9.1 8.5 - 10.5 mg/dL LAB CHEMISTRY METHOD 06/12/2024 6:51 PM [facility] Blood Venous blood specimen / Unknown Venipuncture / Unknown 06/12/2024 7:11 AM EDT 06/12/2024 11:15 AM EDT us Gilson Davidson MD LAB BLOOD ORDERABLES Final Resul t [facility] [address] [place] [address], * (ABNORMAL) Complete blood count (06/12/2024 7:11 AM EDT) WBC 6.9 4.8 - 10.8 K/mcL LAB HEMETOLOGY METHOD 06/12/2024 11:46 AM EDT [facility] RBC 4.10 3.80 - 4.80 M/mcL LAB HEMETOLOGY METHOD 06/12/2024 11:46 AM EDT [facility] Hemoglobin 11.4(L) 11.5 - 16.0 g/dL LAB HEMETOLOGY METHOD 06/12/2024 11:46 AM T [facility] Hematocrit 35.5 35.0 - 47.0 % LAB HEMETOLOGY METHOD 06/12/2024 11:46 AM EDT [facility] MCV 87.7 79.0 - 98.0 FL LAB HEMETOLOGY METHOD 06/12/2024 11:46 AM EDT [facility] MCH 28.1 27.0 - 32.0 pcg LAB HEMETOLOGY METHOD 06/12/2024 11:46 AM EDT [facility] MCHC 32.1 32.0 - 37.0 g/dL LAB HEMETOLOGY METHOD 06/12/2024 11:46 AM EDT [facility] RDW 15.5(H) 11.0 - 15.0 % LAB HEMETOLOGY METHOD 06/12/2024 11:46 AM EDT [facility] Platelets 338 130 - 400 K/mcL LAB HEMETOLOGY METHOD 06/12/2024 11:46 AM EDT [facility] MPV 10.1 7.0 - 11.0 FL LAB HEMETOLOGY METHOD 06/12/2024 11:46 AM EDT [facility] NRBC 0.0 <1.0 % LAB HEMETOLOGY METHOD 06/12/2024 11:46 AM EDT [facility] NRBC Absolute 0.00 <0.10 K/mcL LAB HEMETOLOGY METHOD 06/12/2024 11:46 AM [facility] Blood Venous blood specimen / Unknown Venipuncture / Unknown 06/12/2024 7:11 AM EDT 06/12/2024 11:15 AM EDT us Gilson Davidson MD LAB BLOOD ORDERABLES Final Resul t [facility] [address] [place] [address], * (ABNORMAL) Sedimentation rate (06/12/2024 7:11 AM EDT) Sed Rate 45(H) 0 - 30 mm/hr LAB HEMETOLOGY METHOD 06/12/2024 11:55 AM EDT [facility] Blood Venous blood specimen / Unknown Venipuncture / Unknown 06/12/2024 7:11 AM EDT 06/12/2024 11:15 AM EDT Gilson Davidson MD LAB BLOOD ORDERABLES Final Resul t Performing Organization Address [facility] Co de Phone Number [facility] [address] [place] [address], [place] [phone] * C-reactive protein (06/12/2024 7:11 AM EDT) C-Reactive Protein <0.29 <=0.50 mg/dL LAB CHEMISTRY METHOD 06/12/2024 6:51 PM EDT [facility] Blood Venous blood specimen / Unknown Venipuncture / Unknown 06/12/2024 7:11 AM EDT 06/12/2024 11:15 AM EDT Gilson Davidson MD LAB BLOOD ORDERABLES Final Resul t Performing Organization Address [facility] de Phone Number [facility] [address] [place] [address], [place] [phone] documented in this encounter Visit Diagnoses Diagnosis Type 2 diabetes mellitus without complications (CMS/HCC V24, CMS/HCC V28) Essential (primary) hypertension Unspecified essential hypertension parts counterman (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 antibiotics Hyperlipidemia, unspecified Charcot's joint, unspecified ankle and foot Other acute osteomyelitis, right ankle and foot (CMS/HCC V24, CMS/HCC V28) documented in this encounter Care Teams Amusement Ride Operator Relationship Specialty Start Date End Date Kristin Bellamy MD [facility] [address] PCP - General Internal Medicine 11/29/19 documented as of this encounter
--- OUTSIDE RECORDS SUMMARY | 2025-01-18 11:12 | XMS_ITS | Encounter Summary ---
Author Organization [facility] Address [address] [place] [address] Care Team Providers Care Contact Finger Assembler Name Role Phone Kristin Bellamy MD Primary Care Provider [phone] Encounter Details Date Type Department Care Team (Late st Contact Info) Description 01/30/2024 Lab Requisition [facility] - Main Lab 299 [facility] [place] [address] Gilson Davidson MD [address] [place] [address] 204 [facility] [address] Type 2 diabetes mellitus [...] (ABNORMAL) Sedimentation rate (01/31/2024 6:03 AM EST) Sed Rate 76(H) 0 - 30 mm/hr LAB HEMETOLOGY METHOD 01/31/2024 11:00 AM EST [facility] Blood Venous blood specimen / Unknown Venipuncture / Unknown 01/31/2024 6:03 AM EST 01/31/2024 10:15 AM EST us Gilson Davidson MD LAB BLOOD ORDERABLES Final Resul t Performing Organization Address [facility]/ZIP Co de Phone Number [facility] [address] [place] [address], [place] [phone] * C-reactive protein (01/31/2024 6:03 AM EST) Pathologist [facility] C-Reactive Protein 0.44 <=0.50 mg/dL LAB CHEMISTRY METHOD 01/31/2024 11:40 AM EST [facility] Blood Venous blood specimen / Unknown Venipuncture / Unknown 01/31/2024 6:03 AM EST 01/31/2024 10:17 AM EST us Gilson Davidson MD LAB BLOOD ORDERABLES Final Resul t [facility] [address] [place] [address], [place] [phone] * (ABNORMAL) Basic metabolic panel (01/31/2024 6:03 AM EST) Pathologist [facility] Sodium 143 133 - 145 mmol/L LAB CHEMISTRY METHOD 01/31/2024 11:35 AM EST [facility] Potassium 4.0 3.5 - 5.5 mmol/L LAB CHEMISTRY METHOD 01/31/2024 11:35 AM [facility] Chloride 107 96 - 110 mmol/L LAB CHEMISTRY METHOD 01/31/2024 11:35 AM [facility] CO2 29 21 - 32 mmol/L LAB CHEMISTRY METHOD 01/31/2024 11:35 AM [facility] Anion Gap 7 3 - 11 LAB CHEMISTRY METHOD 01/31/2024 11:35 AM [facility] Glucose 116(H) 70 - 100 mg/dL LAB CHEMISTRY METHOD 01/31/2024 11:35 AM [facility] BUN 18 5 - 25 mg/dL LAB CHEMISTRY METHOD 01/31/2024 11:35 AM [facility] Creatinine 1.13(H) 0.50 - 1.10 mg/dL LAB CHEMISTRY METHOD 01/31/2024 11:35 AM [facility] eGFR 55(L) >=60 mL/min/1. 73m2 LAB CHEMISTRY METHOD 01/31/2024 11:35 AM [facility] Comment:Calculation based on the Chronic Kidney Disease Epidemiology Collaboration (CKD-EPI) equation refit without adjustment for race. BUN/Creatinine Ratio 15.9 LAB CHEMISTRY METHOD 01/31/2024 11:35 AM [facility] Calcium 9.2 8.5 - 10.5 mg/dL LAB CHEMISTRY METHOD 01/31/2024 11:35 AM [facility] Blood Venous blood specimen / Unknown Venipuncture / Unknown 01/31/2024 6:03 AM EST 01/31/2024 10:17 AM EST us Gilson Davidson MD LAB BLOOD ORDERABLES Final Resul t [facility] [address] [place] [address], [place] [phone] * (ABNORMAL) Complete blood count (01/31/2024 6:03 AM EST) [facility] WBC 5.8 4.8 - 10.8 K/mcL LAB HEMETOLOGY METHOD 01/31/2024 10:45 AM [facility] RBC 3.80 3.80 - 4.80 M/mcL LAB HEMETOLOGY METHOD 01/31/2024 10:45 AM [facility] Hemoglobin 10.5(L) 11.5 - 16.0 g/dL LAB HEMETOLOGY METHOD 01/31/2024 10:45 AM [facility] Hematocrit 33.7(L) 35.0 - 47.0 % LAB HEMETOLOGY METHOD 01/31/2024 10:45 AM [facility] MCV 88.7 79.0 - 98.0 FL LAB HEMETOLOGY METHOD 01/31/2024 10:45 AM [facility] MCH 27.6 27.0 - 32.0 pcg LAB HEMETOLOGY METHOD 01/31/2024 10:45 AM [facility] MCHC 31.2(L) 32.0 - 37.0 g/dL LAB HEMETOLOGY METHOD 01/31/2024 10:45 AM [facility] RDW 13.4 11.0 - 15.0 % LAB HEMETOLOGY METHOD 01/31/2024 10:45 AM [facility] Platelets 278 130 - 400 K/mcL LAB HEMETOLOGY METHOD 01/31/2024 10:45 AM [facility] MPV 10.6 7.0 - 11.0 FL LAB HEMETOLOGY METHOD 01/31/2024 10:45 AM [facility] NRBC 0.0 <1.0 % LAB HEMETOLOGY METHOD 01/31/2024 10:45 AM [facility] NRBC Absolute 0.00 <0.10 K/mcL LAB HEMETOLOGY METHOD 01/31/2024 10:45 AM EST [facility] Blood Venous blood specimen / Unknown Venipuncture / Unknown 01/31/2024 6:03 AM EST 01/31/2024 10:15 AM EST us Gilson Davidson MD LAB BLOOD ORDERABLES Final Resul t [facility] [address] [place] [address], [place] [phone] documented in this encounter Visit Diagnoses Diagnosis Type 2 diabetes mellitus without complications (CMS/HCC V24, CMS/HCC V28) Essential (primary) hypertension Unspecified essential hypertension documented in this encounter Care Teams Contact Finger Assembler Relationship Specialty Start Date End Date Kristin Bellamy MD [address] [facility] [address] [place], [place] PCP - General Internal Medicine 11/29/19 documented as of this encounter
--- OUTSIDE RECORDS SUMMARY | 2025-01-18 11:12 | XMS_ITS | Encounter Summary ---
Author Organization [facility] Address [address] [place] [address] Care Team Providers Care Candy Spreader Name Role Phone Kristin Bellamy MD Primary Care Provider [phone] Encounter Details Date Type Department Care Team (Late st Contact Info) Description 05/21/2024 Lab Requisition [facility] - Main Lab 299 [facility] [place] [address] Gilson Davidson MD [address] [place] [address] 204 [facility] [address] Type 2 diabetes mellitus [...] mmol/L LAB CHEMISTRY METHOD 05/22/2024 12:51 PM [facility] Potassium 4.3 3.5 - 5.5 mmol/L LAB CHEMISTRY METHOD 05/22/2024 12:51 PM [facility] Chloride 107 96 - 110 mmol/L LAB CHEMISTRY METHOD 05/22/2024 12:51 PM [facility] CO2 26 21 - 32 mmol/L LAB CHEMISTRY METHOD 05/22/2024 12:51 PM [facility] Anion Gap 9 3 - 11 LAB CHEMISTRY METHOD 05/22/2024 12:51 PM [facility] Glucose 62(L) 70 - 100 mg/dL LAB CHEMISTRY METHOD 05/22/2024 12:51 PM [facility] BUN 23 5 - 25 mg/dL LAB CHEMISTRY METHOD 05/22/2024 12:51 PM [facility] Creatinine 1.21(H) 0.50 - 1.10 mg/dL LAB CHEMISTRY METHOD 05/22/2024 12:51 PM [facility] eGFR 51(L) >=60 mL/min/1. 73m2 LAB CHEMISTRY METHOD 05/22/2024 12:51 PM [facility] Comment:Calculation based on the Chronic Kidney Disease Epidemiology Collaboration (CKD-EPI) equation refit without adjustment for race. BUN/Creatinine Ratio 19.0 LAB CHEMISTRY METHOD 05/22/2024 12:51 PM [facility] Calcium 9.2 8.5 - 10.5 mg/dL LAB CHEMISTRY METHOD 05/22/2024 12:51 PM EDT [facility] Blood Venous blood specimen / Unknown Venipuncture / Unknown 05/22/2024 5:30 AM EDT 05/22/2024 10:57 AM EDT us Gilson Davidson MD LAB BLOOD ORDERABLES Final Resul t [facility] [address] [place] [address], * (ABNORMAL) Complete blood count (05/22/2024 5:30 AM EDT) WBC 6.6 4.8 - 10.8 K/mcL LAB HEMETOLOGY METHOD 05/22/2024 11:35 AM [facility] RBC 4.20 3.80 - 4.80 M/[facility] LAB HEMETOLOGY METHOD 05/22/2024 11:35 AM [facility] Hemoglobin 11.5 11.5 - 16.0 g/dL LAB HEMETOLOGY METHOD 05/22/2024 11:35 AM [facility] Hematocrit 36.3 35.0 - 47.0 % LAB HEMETOLOGY METHOD 05/22/2024 11:35 AM [facility] MCV 87.1 79.0 - 98.0 FL LAB HEMETOLOGY METHOD 05/22/2024 11:35 AM EDT [facility] MCH 27.6 27.0 - 32.0 pcg LAB HEMETOLOGY METHOD 05/22/2024 11:35 AM [facility] MCHC 31.7(L) 32.0 - 37.0 g/dL LAB HEMETOLOGY METHOD 05/22/2024 11:35 AM [facility] RDW 15.7(H) 11.0 - 15.0 % LAB HEMETOLOGY METHOD 05/22/2024 11:35 AM EDT [facility] Platelets 329 130 - 400 K/mcL LAB HEMETOLOGY METHOD 05/22/2024 11:35 AM EDT [facility] MPV 10.0 7.0 - 11.0 FL LAB HEMETOLOGY METHOD 05/22/2024 11:35 AM EDT [facility] NRBC 0.0 <1.0 % LAB HEMETOLOGY METHOD 05/22/2024 11:35 AM EDT [facility] NRBC Absolute 0.00 <0.10 K/mcL LAB HEMETOLOGY METHOD 05/22/2024 11:35 AM EDT [facility] Blood Venous blood specimen / Unknown Venipuncture / Unknown 05/22/2024 5:30 AM EDT 05/22/2024 11:12 AM EDT us Gilson Davidson MD LAB BLOOD ORDERABLES Final Resul t [facility] [address] [place] [address], [place] [phone] * (ABNORMAL) Sedimentation rate (05/22/2024 5:30 AM EDT) [facility] Sed Rate 42(H) 0 - 30 mm/hr LAB HEMETOLOGY METHOD 05/22/2024 11:55 AM EDT [facility] Blood Venous blood specimen / Unknown Venipuncture / Unknown 05/22/2024 5:30 AM EDT 05/22/2024 11:12 AM EDT us Gilson Davidson MD LAB BLOOD ORDERABLES Final Resul t [facility] [address] [place] [address], [place] [phone] * C-reactive protein (05/22/2024 5:30 AM EDT) C-Reactive Protein <0.29 <=0.50 mg/dL LAB CHEMISTRY METHOD 05/22/2024 12:51 PM EDT [facility] Blood Venous blood specimen / Unknown Venipuncture / Unknown 05/22/2024 5:30 AM EDT 05/22/2024 10:57 AM EDT us Gilson Davidson MD LAB BLOOD ORDERABLES Final Resul t [facility] [address] [place] [address], [place] [phone] documented in this encounter Visit Diagnoses Diagnosis Type 2 diabetes mellitus without complications (CMS/HCC V24, CMS/HCC V28) Essential (primary) hypertension Unspecified essential hypertension documented in this encounter Care Teams Candy Spreader Relationship Specialty Start Date End Date Kristin Bellamy MD [facility] [address] PCP - General Internal Medicine 11/29/19 documented as of this encounter
--- OUTSIDE RECORDS SUMMARY | 2025-01-18 11:12 | XMS_ITS | Encounter Summary ---
Author Organization [facility] Address [address] [place] [address] Care Team Providers Care Fish Filleter Name Role Phone Kristin Bellamy MD Primary Care Provider [phone] Encounter Details Date Type Department Care Team (Late st Contact Info) Description 01/16/2024 Lab Requisition [facility] - Main Lab 299 [facility] [place] [address] Gilson Davidson MD [address] [place] [address] 204 [facility] [address] Type 2 diabetes mellitus without [...] Sedimentation rate (01/17/2024 6:11 AM EST) Pathologist [facility] Sed Rate 95(H) 0 - 30 mm/hr LAB HEMETOLOGY METHOD 01/17/2024 11:[address] [facility] Blood Venous blood specimen / Unknown Venipuncture / Unknown 01/17/2024 6:11 AM EST 01/17/2024 10:22 AM EST Gilson Davidson MD LAB BLOOD ORDERABLES Final Resul t Performing Organization Address [facility]/ZIP Co de Phone Number [facility] [address] [place] [address], [place] [phone] * (ABNORMAL) C-reactive protein (01/17/2024 6:11 AM EST) [facility] C-Reactive Protein 0.58(H) <=0.50 mg/dL LAB CHEMISTRY METHOD 01/17/2024 12:[address] [facility] Blood Venous blood specimen / Unknown Venipuncture / Unknown 01/17/2024 6:11 AM EST 01/17/2024 10:22 AM EST Gilson Davidson MD LAB BLOOD ORDERABLES Final Resul t [facility] [address] [place] [address], [place] [phone] * (ABNORMAL) Basic metabolic panel (01/17/2024 6:11 AM EST) Pathologist [facility] Sodium 140 133 - 145 mmol/L LAB CHEMISTRY METHOD 01/17/2024 12:[address] [facility] Potassium 4.7 3.5 - 5.5 mmol/L LAB CHEMISTRY METHOD 01/17/2024 12:[address] [facility] Chloride 109 96 - 110 mmol/L LAB CHEMISTRY METHOD 01/17/2024 12:[address] [facility] CO2 24 21 - 32 mmol/L LAB CHEMISTRY METHOD 01/17/2024 12:[address] [facility] Anion Gap 7 3 - 11 LAB CHEMISTRY METHOD 01/17/2024 12:[address] [facility] Glucose 159(H) 70 - 100 mg/dL LAB CHEMISTRY METHOD 01/17/2024 12:[address] [facility] BUN 26(H) 5 - 25 mg/dL LAB CHEMISTRY METHOD 01/17/2024 12:[address] [facility] Creatinine 1.27(H) 0.50 - 1.10 mg/dL LAB CHEMISTRY METHOD 01/17/2024 12:[address] [facility] eGFR 48(L) >=60 mL/min/1. 73m2 LAB CHEMISTRY METHOD 01/17/2024 12:[address] [facility] Comment:Calculation based on the Chronic Kidney Disease Epidemiology Collaboration (CKD-EPI) equation refit without adjustment for race. BUN/Creatinine Ratio 20.5 LAB CHEMISTRY METHOD 01/17/2024 12:[address] [facility] Calcium 9.0 8.5 - 10.5 mg/dL LAB CHEMISTRY METHOD 01/17/2024 12:[address] [facility] Blood Venous blood specimen / Unknown Venipuncture / Unknown 01/17/2024 6:11 AM EST 01/17/2024 10:22 AM EST us Gilson Davidson MD LAB BLOOD ORDERABLES Final Resul t [facility] [address] [place] [address], [place] [phone] * (ABNORMAL) Complete blood count (01/17/2024 6:11 AM EST) [facility] WBC 7.9 4.8 - 10.8 K/mcL LAB HEMETOLOGY METHOD 01/17/2024 11:[address] [facility] RBC 3.50(L) 3.80 - 4.80 M/mcL LAB HEMETOLOGY METHOD 01/17/2024 11:[address] [facility] Hemoglobin 9.8(L) 11.5 - 16.0 g/dL LAB HEMETOLOGY METHOD 01/17/2024 11:[address] [facility] Hematocrit 31.6(L) 35.0 - 47.0 % LAB HEMETOLOGY METHOD 01/17/2024 11:[address] [facility] MCV 90.3 79.0 - 98.0 FL LAB HEMETOLOGY METHOD 01/17/2024 11:[address] [facility] MCH 28.0 27.0 - 32.0 pcg LAB HEMETOLOGY METHOD 01/17/2024 11:[address] [facility] MCHC 31.0(L) 32.0 - 37.0 g/dL LAB HEMETOLOGY METHOD 01/17/2024 11:[address] [facility] RDW 13.6 11.0 - 15.0 % LAB HEMETOLOGY METHOD 01/17/2024 11:[address] [facility] Platelets 303 130 - 400 K/mcL LAB HEMETOLOGY METHOD 01/17/2024 11:[address] [facility] MPV 10.3 7.0 - 11.0 FL LAB HEMETOLOGY METHOD 01/17/2024 11:[address] [facility] NRBC 0.0 <1.0 % LAB HEMETOLOGY METHOD 01/17/2024 11:[address] [facility] NRBC Absolute 0.00 <0.10 K/mcL LAB HEMETOLOGY METHOD 01/17/2024 11:[address] [facility] Blood Venous blood specimen / Unknown Venipuncture / Unknown 01/17/2024 6:11 AM EST 01/17/2024 10:22 AM EST us Gilson Davidson MD LAB BLOOD ORDERABLES Final Resul t [facility] [address] [place] [address], documented in this encounter Visit Diagnoses Diagnosis Type 2 diabetes mellitus without complications (CMS/HCC V24, CMS/HCC V28) Essential (primary) hypertension Unspecified essential hypertension documented in this encounter Care Teams Fish Filleter Relationship Specialty Start Date End Date Kristin Bellamy MD [address] [facility] [address] [place], [place] PCP - General Internal Medicine 11/29/19 documented as of this encounter
--- OUTSIDE RECORDS SUMMARY | 2025-01-18 11:12 | XMS_ITS | Encounter Summary ---
Author Organization [facility] Address [address] [place] [address] Care Team Providers Care Animal Surgeon Name Role Phone Kristin Bellamy MD Primary Care Provider [phone] Encounter Details Date Type Department Care Team (Late st Contact Info) Description 04/16/2024 Lab Requisition [facility] - Main Lab 299 [facility] [place] [address] Gilson Davidson MD [address] [place] [phone] Essential (primary) hypertension; Type 2 diabetes [...] Sedimentation rate (04/17/2024 6:14 AM EST) Pathologist [facility] Sed Rate 83(H) 0 - 30 mm/hr LAB HEMETOLOGY METHOD 04/17/2024 11:43 AM EST [facility] Blood Venous blood specimen / Unknown Venipuncture / Unknown 04/17/2024 6:14 AM EST 04/17/2024 10:58 AM EST Gilson Davidson MD LAB BLOOD ORDERABLES Final Resul t Performing Organization Address [facility]/ZIP Co de Phone Number [facility] [address] [place] [address], [place] [phone] * (ABNORMAL) C-reactive protein (04/17/2024 6:14 AM EST) [facility] C-Reactive Protein 0.67(H) <=0.50 mg/dL LAB CHEMISTRY METHOD 04/17/2024 2:45 PM EST [facility] Blood Venous blood specimen / Unknown Venipuncture / Unknown 04/17/2024 6:14 AM EST 04/17/2024 10:58 AM EST Gilson Davidson MD LAB BLOOD ORDERABLES Final Resul t [facility] [address] [place] [address], * (ABNORMAL) Basic metabolic panel (04/17/2024 6:14 AM EST) Pathologist [facility] Sodium 140 133 - 145 mmol/L LAB CHEMISTRY METHOD 04/17/2024 2:45 PM [facility] Potassium 4.0 3.5 - 5.5 mmol/L LAB CHEMISTRY METHOD 04/17/2024 2:45 PM [facility] Chloride 107 96 - 110 mmol/L LAB CHEMISTRY METHOD 04/17/2024 2:45 PM [facility] CO2 25 21 - 32 mmol/L LAB CHEMISTRY METHOD 04/17/2024 2:45 PM [facility] Anion Gap 8 3 - 11 LAB CHEMISTRY METHOD 04/17/2024 2:45 PM [facility] Glucose 116(H) 70 - 100 mg/dL LAB CHEMISTRY METHOD 04/17/2024 2:45 PM [facility] BUN 19 5 - 25 mg/dL LAB CHEMISTRY METHOD 04/17/2024 2:45 PM [facility] Creatinine 1.33(H) 0.50 - 1.10 mg/dL LAB CHEMISTRY METHOD 04/17/2024 2:45 PM [facility] eGFR 45(L) >=60 mL/min/1. 73m2 LAB CHEMISTRY METHOD 04/17/2024 2:45 PM [facility] Comment:Calculation based on the Chronic Kidney Disease Epidemiology Collaboration (CKD-EPI) equation refit without adjustment for race. BUN/Creatinine Ratio 14.3 LAB CHEMISTRY METHOD 04/17/2024 2:45 PM [facility] Calcium 8.6 8.5 - 10.5 mg/dL LAB CHEMISTRY METHOD 04/17/2024 2:45 PM [facility] Blood Venous blood specimen / Unknown Venipuncture / Unknown 04/17/2024 6:14 AM EST 04/17/2024 10:58 AM EST us Gilson Davidson MD LAB BLOOD ORDERABLES Final Resul t [facility] [address] [place] [address], [place] [phone] * (ABNORMAL) Complete blood count (04/17/2024 6:14 AM EST) [facility] WBC 7.7 4.8 - 10.8 K/mcL LAB HEMETOLOGY METHOD 04/17/2024 11:25 AM [facility] RBC 3.60(L) 3.80 - 4.80 M/mcL LAB HEMETOLOGY METHOD 04/17/2024 11:25 AM [facility] Hemoglobin 9.7(L) 11.5 - 16.0 g/dL LAB HEMETOLOGY METHOD 04/17/2024 11:25 AM [facility] Hematocrit 30.5(L) 35.0 - 47.0 % LAB HEMETOLOGY METHOD 04/17/2024 11:25 AM [facility] MCV 85.9 79.0 - 98.0 FL LAB HEMETOLOGY METHOD 04/17/2024 11:25 AM [facility] MCH 27.3 27.0 - 32.0 pcg LAB HEMETOLOGY METHOD 04/17/2024 11:25 AM [facility] MCHC 31.8(L) 32.0 - 37.0 g/dL LAB HEMETOLOGY METHOD 04/17/2024 11:25 AM [facility] RDW 15.4(H) 11.0 - 15.0 % LAB HEMETOLOGY METHOD 04/17/2024 11:25 AM [facility] Platelets 290 130 - 400 K/mcL LAB HEMETOLOGY METHOD 04/17/2024 11:25 AM [facility] MPV 10.1 7.0 - 11.0 FL LAB HEMETOLOGY METHOD 04/17/2024 11:25 AM [facility] NRBC 0.0 <1.0 % LAB HEMETOLOGY METHOD 04/17/2024 11:25 AM [facility] NRBC Absolute 0.00 <0.10 K/mcL LAB HEMETOLOGY METHOD 04/17/2024 11:25 AM EST [facility] Blood Venous blood specimen / Unknown Venipuncture / Unknown 04/17/2024 6:14 AM EST 04/17/2024 10:58 AM EST us Gilson Davidson MD LAB BLOOD ORDERABLES Final Resul t [facility] [address] [place] [address], documented in this encounter Visit Diagnoses Diagnosis Essential (primary) hypertension Unspecified essential hypertension Type 2 diabetes mellitus without complications (CMS/HCC V24, CMS/HCC V28) documented in this encounter Care Teams Animal Surgeon Relationship Specialty Start Date End Date Kristin Bellamy MD [address] [facility] [address] [place], [place] PCP - General Internal Medicine 11/29/19 documented as of this encounter
--- OUTSIDE RECORDS SUMMARY | 2025-01-18 11:12 | XMS_ITS | Encounter Summary ---
Author Organization [facility] Address [address] [place] [address] Care Team Providers Care President Sales And Marketing Name Role Phone Kristin Bellamy MD Primary Care Provider [phone] Encounter Details Date Type Department Care Team (Late st Contact Info) Description 05/14/2024 Lab Requisition [facility] - Main Lab 299 [facility] [place] [address] Gilson Davidson MD [address] [place] [address] 204 [facility] [phone] Type 2 diabetes mellitus without complications [...] mmol/L LAB CHEMISTRY METHOD 05/15/2024 1:03 PM [facility] Potassium 4.4 3.5 - 5.5 mmol/L LAB CHEMISTRY METHOD 05/15/2024 1:03 PM [facility] Chloride 105 96 - 110 mmol/L LAB CHEMISTRY METHOD 05/15/2024 1:03 PM [facility] CO2 24 21 - 32 mmol/L LAB CHEMISTRY METHOD 05/15/2024 1:03 PM [facility] Anion Gap 9 3 - 11 LAB CHEMISTRY METHOD 05/15/2024 1:03 PM [facility] Glucose 96 70 - 100 mg/dL LAB CHEMISTRY METHOD 05/15/2024 1:03 PM [facility] BUN 31(H) 5 - 25 mg/dL LAB CHEMISTRY METHOD 05/15/2024 1:03 PM [facility] Creatinine 1.44(H) 0.50 - 1.10 mg/dL LAB CHEMISTRY METHOD 05/15/2024 1:03 PM [facility] eGFR 41(L) >=60 mL/min/1. 73m2 LAB CHEMISTRY METHOD 05/15/2024 1:03 PM [facility] Comment:Calculation based on the Chronic Kidney Disease Epidemiology Collaboration (CKD-EPI) equation refit without adjustment for race. BUN/Creatinine Ratio 21.5 LAB CHEMISTRY METHOD 05/15/2024 1:03 PM [facility] Calcium 9.1 8.5 - 10.5 mg/dL LAB CHEMISTRY METHOD 05/15/2024 1:03 PM EDT [facility] Blood Venous blood specimen / Unknown Venipuncture / Unknown 05/15/2024 6:57 AM EDT 05/15/2024 12:14 PM EDT us Gilson Davidson MD LAB BLOOD ORDERABLES Final Resul t [facility] [address] [place] [address], * (ABNORMAL) Complete blood count (05/15/2024 6:57 AM EDT) WBC 7.5 4.8 - 10.8 K/mcL LAB HEMETOLOGY METHOD 05/15/2024 12:39 PM EDT [facility] RBC 4.20 3.80 - 4.80 M/[facility] LAB HEMETOLOGY METHOD 05/15/2024 12:39 PM EDT [facility] Hemoglobin 11.6 11.5 - 16.0 g/dL LAB HEMETOLOGY METHOD 05/15/2024 12:39 PM EDT [facility] Hematocrit 36.0 35.0 - 47.0 % LAB HEMETOLOGY METHOD 05/15/2024 12:39 PM EDT [facility] MCV 85.9 79.0 - 98.0 FL LAB HEMETOLOGY METHOD 05/15/2024 12:39 PM EDT [facility] MCH 27.7 27.0 - 32.0 pcg LAB HEMETOLOGY METHOD 05/15[facility]24 [facility] MCHC 32.2 32.0 - 37.0 g/dL LAB HEMETOLOGY METHOD 05/15/2024 12:39 PM [facility] RDW 15.8(H) 11.0 - 15.0 % LAB HEMETOLOGY METHOD 05/15/2024 12:39 PM EDT [facility] Platelets 361 130 - 400 K/mcL LAB HEMETOLOGY METHOD 05/15/2024 12:39 PM EDT [facility] MPV 9.9 7.0 - 11.0 FL LAB HEMETOLOGY METHOD 05/15/2024 12:39 PM EDT [facility] NRBC 0.0 <1.0 % LAB HEMETOLOGY METHOD 05/15/2024 12:39 PM EDT [facility] NRBC Absolute 0.00 <0.10 K/mcL LAB HEMETOLOGY METHOD 05/15/2024 12:39 PM EDT [facility] Blood Venous blood specimen / Unknown Venipuncture / Unknown 05/15/2024 6:57 AM EDT 05/15/2024 12:14 PM EDT us Gilson Davidson MD LAB BLOOD ORDERABLES Final Resul t Performing Organization Address City/[facility]/ZIP Co de Phone Number [facility] [address] [place] [address], [place] [phone] * (ABNORMAL) Sedimentation rate (05/15/2024 6:57 AM EDT) [facility] Sed Rate 53(H) 0 - 30 mm/hr LAB HEMETOLOGY METHOD 05/15/2024 12:46 PM EDT [facility] Blood Venous blood specimen / Unknown Venipuncture / Unknown 05/15/2024 6:57 AM EDT 05/15/2024 12:14 PM EDT us Gilson Davidson MD LAB BLOOD ORDERABLES Final Resul t [facility] [address] [place] [address], [place] [phone] * C-reactive protein (05/15/2024 6:57 AM EDT) C-Reactive Protein <0.29 <=0.50 mg/dL LAB CHEMISTRY METHOD 05/15/2024 1:03 PM EDT [facility] Blood Venous blood specimen / Unknown Venipuncture / Unknown 05/15/2024 6:57 AM EDT 05/15/2024 12:14 PM EDT us Gilson Davidson MD LAB BLOOD ORDERABLES Final Resul t [facility] [address] [place] [address], [place] [phone] documented in this encounter Visit Diagnoses Diagnosis Type 2 diabetes mellitus without complications (CMS/HCC V24, CMS/HCC V28) Essential (primary) hypertension Unspecified essential hypertension documented in this encounter Care Teams President Sales And Marketing Relationship Specialty Start Date End Date Kristin Bellamy MD [facility] [address] PCP - General Internal Medicine 11/29/19 documented as of this encounter
--- OUTSIDE RECORDS SUMMARY | 2025-01-18 11:12 | XMS_ITS | Encounter Summary ---
Author Organization [facility] Address [address] [place] [address] Care Team Providers Care Towboat Pilot Name Role Phone Kristin Bellamy MD Primary Care Provider [phone] Encounter Details Date Type Department Care Team (Late st Contact Info) Description 01/09/2024 Lab Requisition [facility] - Main Lab 299 [facility] [place] [address] Gilson Davidson MD [address] [place] [address] 204 [facility] [phone] Type 2 diabetes mellitus [...] Sedimentation rate (01/10/2024 7:05 AM EST) Pathologist [facility] Sed Rate 80(H) 0 - 30 mm/hr LAB HEMETOLOGY METHOD 01/10/2024 10:22 AM EST [facility] Blood Venous blood specimen / Unknown Venipuncture / Unknown 01/10/2024 7:05 AM EST 01/10/2024 10:05 AM EST Gilson Davidson MD LAB BLOOD ORDERABLES Final Resul t Performing Organization Address [facility]/ZIP Co de Phone Number [facility] [address] [place] [address], [place] [phone] * (ABNORMAL) C-reactive protein (01/10/2024 7:05 AM EST) [facility] C-Reactive Protein 2.18(H) <=0.50 mg/dL LAB CHEMISTRY METHOD 01/10/2024 10:50 AM EST [facility] Blood Venous blood specimen / Unknown Venipuncture / Unknown 01/10/2024 7:05 AM EST 01/10/2024 9:58 AM EST Gilson Davidson MD LAB BLOOD ORDERABLES Final Resul t [facility] [address] [place] [address], [place] [phone] * (ABNORMAL) Basic metabolic panel (01/10/2024 7:05 AM EST) [facility] Sodium 139 133 - 145 mmol/L LAB CHEMISTRY METHOD 01/10/2024 10:53 AM [facility] Potassium 4.7 3.5 - 5.5 mmol/L LAB CHEMISTRY METHOD 01/10/2024 10:53 AM [facility] Chloride 106 96 - 110 mmol/L LAB CHEMISTRY METHOD 01/10/2024 10:53 AM [facility] CO2 24 21 - 32 mmol/L LAB CHEMISTRY METHOD 01/10/2024 10:53 AM [facility] Anion Gap 9 3 - 11 LAB CHEMISTRY METHOD 01/10/2024 10:53 AM [facility] Glucose 155(H) 70 - 100 mg/dL LAB CHEMISTRY METHOD 01/10/2024 10:53 AM [facility] BUN 18 5 - 25 mg/dL LAB CHEMISTRY METHOD 01/10/2024 10:53 AM [facility] Creatinine 1.20(H) 0.50 - 1.10 mg/dL LAB CHEMISTRY METHOD 01/10/2024 10:53 AM [facility] eGFR 51(L) >=60 mL/min/1. 73m2 LAB CHEMISTRY METHOD 01/10/2024 10:53 AM [facility] Comment:Calculation based on the Chronic Kidney Disease Epidemiology Collaboration (CKD-EPI) equation refit without adjustment for race. BUN/Creatinine Ratio 15.0 LAB CHEMISTRY METHOD 01/10/2024 10:53 AM [facility] Calcium 9.4 8.5 - 10.5 mg/dL LAB CHEMISTRY METHOD 01/10/2024 10:53 AM [facility] Blood Venous blood specimen / Unknown Venipuncture / Unknown 01/10/2024 7:05 AM EST 01/10/2024 9:58 AM EST us Gilson Davidson MD LAB BLOOD ORDERABLES Final Resul t [facility] [address] [place] [address], [place] [phone] * (ABNORMAL) Complete blood count (01/10/2024 7:05 AM EST) [facility] WBC 12.8(H) 4.8 - 10.8 K/mcL LAB HEMETOLOGY METHOD 01/10/2024 10:13 AM [facility] RBC 3.40(L) 3.80 - 4.80 M/mcL LAB HEMETOLOGY METHOD 01/10/2024 10:13 AM [facility] Hemoglobin 9.6(L) 11.5 - 16.0 g/dL LAB HEMETOLOGY METHOD 01/10/2024 10:13 AM [facility] Hematocrit 30.8(L) 35.0 - 47.0 % LAB HEMETOLOGY METHOD 01/10/2024 10:13 AM [facility] MCV 90.1 79.0 - 98.0 FL LAB HEMETOLOGY METHOD 01/10/2024 10:13 AM [facility] MCH 28.1 27.0 - 32.0 pcg LAB HEMETOLOGY METHOD 01/10/2024 10:13 AM [facility] MCHC 31.2(L) 32.0 - 37.0 g/dL LAB HEMETOLOGY METHOD 01/10/2024 10:13 AM [facility] RDW 13.1 11.0 - 15.0 % LAB HEMETOLOGY METHOD 01/10/2024 10:13 AM [facility] Platelets 349 130 - 400 K/mcL LAB HEMETOLOGY METHOD 01/10/2024 10:13 AM [facility] MPV 9.7 7.0 - 11.0 FL LAB HEMETOLOGY METHOD 01/10/2024 10:13 AM [facility] NRBC 0.0 <1.0 % LAB HEMETOLOGY METHOD 01/10/2024 10:13 AM [facility] NRBC Absolute 0.00 <0.10 K/mcL LAB HEMETOLOGY METHOD 01/10/2024 10:13 AM EST [facility] Blood Venous blood specimen / Unknown Venipuncture / Unknown 01/10/2024 7:05 AM EST 01/10/2024 10:05 AM EST us Gilson Davidson MD LAB BLOOD ORDERABLES Final Resul t [facility] [address] [place] [address], documented in this encounter Visit Diagnoses Diagnosis Type 2 diabetes mellitus without complications (CMS/HCC V24, CMS/HCC V28) Essential (primary) hypertension Unspecified essential hypertension documented in this encounter Care Teams Towboat Pilot Relationship Specialty Start Date End Date Kristin Bellamy MD [address] [facility] [address] [place], [place] PCP - General Internal Medicine 11/29/19 documented as of this encounter
--- OUTSIDE RECORDS SUMMARY | 2025-01-18 11:12 | XMS_ITS | Encounter Summary ---
Author Organization [facility] Address [address] [place] [address] Care Team Providers Care 3 Year Olds Preschool Teacher Name Role Phone Kristin Bellamy MD Primary Care Provider [phone] Encounter Details Date Type Department Care Team (Late st Contact Info) Description 03/05/2024 Lab Requisition [facility] - Main Lab 299 [facility] [place] [address] Gilson Davidson MD [address] [place] [phone] Type 2 diabetes mellitus without complications [...] Sedimentation rate (03/06/2024 7:07 AM EST) Pathologist [facility] Sed Rate 90(H) 0 - 30 mm/hr LAB HEMETOLOGY METHOD 03/06/2024 11:28 AM EST [facility] Blood Venous blood specimen / Unknown Venipuncture / Unknown 03/06/2024 7:07 AM EST 03/06/2024 11:18 AM EST Gilson Davidson MD LAB BLOOD ORDERABLES Final Resul t Performing Organization Address [facility]/ZIP Co de Phone Number [facility] [address] [place] [address], [place] [phone] * (ABNORMAL) C-reactive protein (03/06/2024 7:07 AM EST) [facility] C-Reactive Protein 1.86(H) <=0.50 mg/dL LAB CHEMISTRY METHOD 03/06/2024 2:12 PM EST [facility] Blood Venous blood specimen / Unknown Venipuncture / Unknown 03/06/2024 7:07 AM EST 03/06/2024 11:18 AM EST Gilson Davidson MD LAB BLOOD ORDERABLES Final Resul t [facility] [address] [place] [address], [place] [phone] * (ABNORMAL) Basic metabolic panel (03/06/2024 7:07 AM EST) [facility] Sodium 137 133 - 145 mmol/L LAB CHEMISTRY METHOD 03/06/2024 2:[address] [facility] Potassium 4.8 3.5 - 5.5 mmol/L LAB CHEMISTRY METHOD 03/06/2024 2:[address] [facility] Chloride 108 96 - 110 mmol/L LAB CHEMISTRY METHOD 03/06/2024 2:[address] [facility] CO2 27 21 - 32 mmol/L LAB CHEMISTRY METHOD 03/06/2024 2:[address] [facility] Anion Gap 2(L) 3 - 11 LAB CHEMISTRY METHOD 03/06/2024 2:[address] [facility] Glucose 124(H) 70 - 100 mg/dL LAB CHEMISTRY METHOD 03/06/2024 2:[address] [facility] BUN 30(H) 5 - 25 mg/dL LAB CHEMISTRY METHOD 03/06/2024 2:[address] [facility] Creatinine 1.50(H) 0.50 - 1.10 mg/dL LAB CHEMISTRY METHOD 03/06/2024 2:[address] [facility] eGFR 39(L) >=60 mL/min/1. 73m2 LAB CHEMISTRY METHOD 03/06/2024 2:[address] [facility] Comment:Calculation based on the Chronic Kidney Disease Epidemiology Collaboration (CKD-EPI) equation refit without adjustment for race. BUN/Creatinine Ratio 20.0 LAB CHEMISTRY METHOD 03/06/2024 2:[address] [facility] Calcium 9.2 8.5 - 10.5 mg/dL LAB CHEMISTRY METHOD 03/06/2024 2:[address] [facility] Blood Venous blood specimen / Unknown Venipuncture / Unknown 03/06/2024 7:07 AM EST 03/06/2024 11:18 AM EST us Gilson Davidson MD LAB BLOOD ORDERABLES Final Resul t [facility] [address] [place] [address], * (ABNORMAL) Complete blood count (03/06/2024 7:07 AM EST) [facility] WBC 7.7 4.8 - 10.8 K/mcL LAB HEMETOLOGY METHOD 03/06/2024 12:[address] [facility] RBC 4.30 3.80 - 4.80 M/mcL LAB HEMETOLOGY METHOD 03/06/2024 12:[address] [facility] Hemoglobin 11.9 11.5 - 16.0 g/dL LAB HEMETOLOGY METHOD 03/06/2024 12:[address] [facility] Hematocrit 38.4 35.0 - 47.0 % LAB HEMETOLOGY METHOD 03/06/2024 12:[address] [facility] MCV 90.1 79.0 - 98.0 FL LAB HEMETOLOGY METHOD 03/06/2024 12:[address] [facility] MCH 27.9 27.0 - 32.0 pcg LAB HEMETOLOGY METHOD 03/06/2024 12:[address] [facility] MCHC 31.0(L) 32.0 - 37.0 g/dL LAB HEMETOLOGY METHOD 03/06/2024 12:[address] [facility] RDW 14.5 11.0 - 15.0 % LAB HEMETOLOGY METHOD 03/06/2024 12:[address] [facility] Platelets 425(H) 130 - 400 K/mcL LAB HEMETOLOGY METHOD 03/06/2024 12:[address] [facility] MPV 10.5 7.0 - 11.0 FL LAB HEMETOLOGY METHOD 03/06/2024 12:[address] [facility] NRBC 0.0 <1.0 % LAB HEMETOLOGY METHOD 03/06/2024 12:04 PM EST [facility] NRBC Absolute 0.00 <0.10 K/mcL LAB HEMETOLOGY METHOD 03/06/2024 12:04 PM EST [facility] ([facility]) [facility] Blood Venous blood specimen / Unknown Venipuncture / Unknown 03/06/2024 7:07 AM EST 03/06/2024 11:18 AM EST us Gilson Davidson MD LAB BLOOD ORDERABLES Final Resul t [facility] ([facility] [address] [place] [address], documented in this encounter Visit Diagnoses Diagnosis Type 2 diabetes mellitus without complications (CMS/HCC V24, CMS/HCC V28) Essential (primary) hypertension Unspecified essential hypertension documented in this encounter Care Teams 3 Year Olds Preschool Teacher Relationship Specialty Start Date End Date Kristin Bellamy MD [address] [facility] [address] [place], [place] PCP - General Internal Medicine 11/29/19 documented as of this encounter
--- OUTSIDE RECORDS SUMMARY | 2025-01-18 11:12 | XMS_ITS | Encounter Summary ---
Author Organization [facility] Address [address] [place] [address] Care Team Providers Care Service Porter Name Role Phone Kristin Bellamy MD Primary Care Provider [phone] Encounter Details Date Type Department Care Team (Late st Contact Info) Description 04/02/2024 Lab Requisition [facility] - Main Lab 299 [facility] [place] [address] Gilson Davidson MD [address] [place] [address] 204 [facility] [phone] Essential (primary) hypertension; Type 2 diabetes [...] V28) documented in this encounter Care Teams Service Porter Relationship Specialty Start Date End Date Kristin Bellamy MD 12[address] [facility] [address] [place] PCP - General Internal Medicine 11/29/19 documented as of this encounter
--- OUTSIDE RECORDS SUMMARY | 2025-01-18 11:12 | XMS_ITS | Encounter Summary ---
Author Organization [facility] Address [address] [place] [address] Care Team Providers Care Battery Engineer Name Role Phone Kristin Bellamy MD Primary Care Provider [phone] Encounter Details Date Type Department Care Team (Late st Contact Info) Description 07/28/2017 Scanned Document [facility] [address] [id number] Roger Morales DPM [address] [place] [phone] Social History Tobacco Use Types Packs/Day Years [...] on filedocumented in this encounter Care Teams Battery Engineer Relationship Specialty Start Date End Date Kristin Bellamy MD PCP - General Internal Medicine 07/31/17 documented as of this encounter
--- OUTSIDE RECORDS SUMMARY | 2025-01-18 11:12 | XMS_ITS | Encounter Summary ---
Author Organization [facility] Address [address] [place] [address] Care Team Providers Care Inseam Trimming Machine Operator Name Role Phone Kristin Bellamy MD Primary Care Provider [phone] Encounter Details Date Type Department Care Team (Late st Contact Info) Description 06/04/[address] [facility] - Main Lab 299 [facility] [place] [address] Gilson Davidson MD [address] [place] [phone] Type 2 diabetes mellitus without complications [...] Date/Time Associated Diagnosis Comments SEDIMENTATION RATE Routine 06/05/2024 6: 31 AM EDT Type 2 diabetes mellitus without complications (CMS/HCC V24, CMS/HCC V28) Essential (primary) hypertension COMPLETE BLOOD COUNT Routine 06/05/2024 6:31 AM EDT Type 2 diabetes mellitus without complications (CMS/HCC V24, CMS/HCC V28) Essential (primary) hypertension C-REACTIVE PROTEIN Routine 06/05/2024 6: 31 AM EDT Type 2 diabetes mellitus without complications ([facility] V24, [facility] V28) Essential (primary) hypertension BASIC METABOLIC PANEL Routine 06/05/2024 6:31 AM EDT Type 2 diabetes mellitus without complications ([facility] V24, [facility] V28) Essential (primary) hypertension documented in this encounter Results * (ABNORMAL) Basic metabolic panel (06/05/2024 6:31 AM EDT) Pathologist [facility] Sodium 138 133 - 145 mmol/L LAB CHEMISTRY METHOD 06/05/2024 12:19 PM [facility] Potassium 4.4 3.5 - 5.5 mmol/L LAB CHEMISTRY METHOD 06/05/2024 12:19 PM [facility] Chloride 107 96 - 110 mmol/L LAB CHEMISTRY METHOD 06/05/2024 12:19 PM [facility] CO2 26 21 - 32 mmol/L LAB CHEMISTRY METHOD 06/05/2024 12:19 PM [facility] Anion Gap 5 3 - 11 LAB CHEMISTRY METHOD 06/05/2024 12:19 PM [facility] Glucose 53(L) 70 - 100 mg/dL LAB CHEMISTRY METHOD 06/05/2024 12:19 PM [facility] BUN 41(H) 5 - 25 mg/dL LAB CHEMISTRY METHOD 06/05/2024 12:19 PM [facility] Creatinine 1.62(H) 0.50 - 1.10 mg/dL LAB CHEMISTRY METHOD 06/05/2024 12:19 PM [facility] eGFR 36(L) >=60 mL/min/1. 73m2 LAB CHEMISTRY METHOD 06/05/2024 12:19 PM [facility] Comment:Calculation based on the Chronic Kidney Disease Epidemiology Collaboration (CKD-EPI) equation refit without adjustment for race. BUN/Creatinine Ratio 25.3 LAB CHEMISTRY METHOD 06/05/2024 12:19 PM EDT [facility] Calcium 9.0 8.5 - 10.5 mg/dL LAB CHEMISTRY METHOD 06/05/2024 12:19 PM [facility] Blood Venous blood specimen / Unknown Venipuncture / Unknown 06/05/2024 6:31 AM EDT 06/05/2024 11:27 AM EDT us Gilson Davidson MD LAB BLOOD ORDERABLES Final Resul t [facility] [address] [place] [address], [place] [phone] * (ABNORMAL) Complete blood count (06/05/2024 6:31 AM EDT) WBC 7.3 4.8 - 10.8 K/mcL LAB HEMETOLOGY METHOD 06/05/2024 12:17 PM [facility] RBC 4.00 3.80 - 4.80 M/mcL LAB HEMETOLOGY METHOD 06/05/2024 12:17 PM [facility] Hemoglobin 11.1(L) 11.5 - 16.0 g/dL LAB HEMETOLOGY METHOD 06/05/2024 12:17 PM [facility] Hematocrit 35.3 35.0 - 47.0 % LAB HEMETOLOGY METHOD 06/05/2024 12:17 PM T [facility] MCV 89.1 79.0 - 98.0 FL LAB HEMETOLOGY METHOD 06/05/2024 12:17 PM [facility] MCH 28.0 27.0 - 32.0 pcg LAB HEMETOLOGY METHOD 06/05/2024 12:17 PM [facility] MCHC 31.4(L) 32.0 - 37.0 g/dL LAB HEMETOLOGY METHOD 06/05/2024 12:17 PM EDT [facility] RDW 15.8(H) 11.0 - 15.0 % LAB HEMETOLOGY METHOD 06/05/2024 12:17 PM EDT [facility] Platelets 316 130 - 400 K/mcL LAB HEMETOLOGY METHOD 06/05/2024 12:17 PM EDT [facility] MPV 10.5 7.0 - 11.0 FL LAB HEMETOLOGY METHOD 06/05/2024 12:17 PM EDT [facility] NRBC 0.0 <1.0 % LAB HEMETOLOGY METHOD 06/05/2024 12:17 PM EDT [facility] NRBC Absolute 0.00 <0.10 K/mcL LAB HEMETOLOGY METHOD 06/05/2024 12:17 PM EDT [facility] Blood Venous blood specimen / Unknown Venipuncture / Unknown 06/05/2024 6:31 AM EDT 06/05/2024 11:27 AM EDT us Gilson Davidson MD LAB BLOOD ORDERABLES Final Resul t [facility] [address] [place] [address], [place] [phone] * (ABNORMAL) Sedimentation rate (06/05/2024 6:31 AM EDT) Sed Rate 51(H) 0 - 30 mm/hr LAB HEMETOLOGY METHOD 06/05/2024 12:35 PM EDT [facility] Blood Venous blood specimen / Unknown Venipuncture / Unknown 06/05/2024 6:31 AM EDT 06/05/2024 11:27 AM EDT us Gilson Davidson MD LAB BLOOD ORDERABLES Final Resul t [facility] [address] [place] [address], [place] [phone] * C-reactive protein (06/05/2024 6:31 AM EDT) C-Reactive Protein <0.29 <=0.50 mg/dL LAB CHEMISTRY METHOD 06/05/2024 12:19 PM EDT [facility] Blood Venous blood specimen / Unknown Venipuncture / Unknown 06/05/2024 6:31 AM EDT 06/05/2024 11:27 AM EDT Gilson Davidson MD LAB BLOOD ORDERABLES Final Resul t [facility] [address] [place] [address], documented in this encounter Visit Diagnoses Diagnosis Type 2 diabetes mellitus without complications (CMS/HCC V24, CMS/HCC V28) Essential (primary) hypertension Unspecified essential hypertension documented in this encounter Care Teams Inseam Trimming Machine Operator Relationship Specialty Start Date End Date Kristin Bellamy MD [address] [place] [address] PCP - General Internal Medicine 11/29/19 documented as of this encounter
--- OUTSIDE RECORDS SUMMARY | 2025-01-18 11:12 | XMS_ITS | Encounter Summary ---
Author Organization [facility] Address [address] [place] [address] Care Team Providers Care Safety Sealer Name Role Phone Kristin Bellamy MD Primary Care Provider [phone] Encounter Details Date Type Department Care Team (Late st Contact Info) Description 02/06/2024 Lab Requisition [facility] - Main Lab 299 [facility] [place] [address] Gilson Davidson MD [address] [place] [address] 204 [facility] [phone] Type 2 diabetes mellitus without [...] Sedimentation rate (02/08/2024 8:40 AM EST) Pathologist [facility] Sed Rate 107(H) 0 - 30 mm/hr LAB HEMETOLOGY METHOD 02/08/2024 11:21 AM EST [facility] Blood Venous blood specimen / Unknown Venipuncture / Unknown 02/08/2024 8:40 AM EST 02/08/2024 10:46 AM EST Gilson Davidson MD LAB BLOOD ORDERABLES Final Resul t Performing Organization Address [facility]/ZIP Co de Phone Number [facility] [address] [place] [address], [place] [phone] * (ABNORMAL) C-reactive protein (02/08/2024 8:40 AM EST) [facility] C-Reactive Protein 0.63(H) <=0.50 mg/dL LAB CHEMISTRY METHOD 02/08/2024 11:26 AM EST [facility] Blood Venous blood specimen / Unknown Venipuncture / Unknown 02/08/2024 8:40 AM EST 02/08/2024 10:46 AM EST Gilson Davidson MD LAB BLOOD ORDERABLES Final Resul t [facility] [address] [place] [address], * (ABNORMAL) Basic metabolic panel (02/08/2024 8:40 AM EST) Pathologist [facility] Sodium 139 133 - 145 mmol/L LAB CHEMISTRY METHOD 02/08/2024 11:26 AM [facility] Potassium 4.8 3.5 - 5.5 mmol/L LAB CHEMISTRY METHOD 02/08/2024 11:26 AM [facility] Chloride 108 96 - 110 mmol/L LAB CHEMISTRY METHOD 02/08/2024 11:26 AM [facility] CO2 28 21 - 32 mmol/L LAB CHEMISTRY METHOD 02/08/2024 11:26 AM [facility] Anion Gap 3 3 - 11 LAB CHEMISTRY METHOD 02/08/2024 11:26 AM [facility] Glucose 131(H) 70 - 100 mg/dL LAB CHEMISTRY METHOD 02/08/2024 11:26 AM [facility] BUN 23 5 - 25 mg/dL LAB CHEMISTRY METHOD 02/08/2024 11:26 AM [facility] Creatinine 1.27(H) 0.50 - 1.10 mg/dL LAB CHEMISTRY METHOD 02/08/2024 11:26 AM [facility] eGFR 48(L) >=60 mL/min/1. 73m2 LAB CHEMISTRY METHOD 02/08/2024 11:26 AM [facility] Comment:Calculation based on the Chronic Kidney Disease Epidemiology Collaboration (CKD-EPI) equation refit without adjustment for race. BUN/Creatinine Ratio 18.1 LAB CHEMISTRY METHOD 02/08/2024 11:26 AM [facility] Calcium 9.3 8.5 - 10.5 mg/dL LAB CHEMISTRY METHOD 02/08/2024 11:26 AM [facility] Blood Venous blood specimen / Unknown Venipuncture / Unknown 02/08/2024 8:40 AM EST 02/08/2024 10:46 AM EST us Gilson Davidson MD LAB BLOOD ORDERABLES Final Resul t [facility] [address] [place] [address], [place] [phone] * (ABNORMAL) Complete blood count (02/08/2024 8:40 AM EST) [facility] WBC 9.9 4.8 - 10.8 K/mcL LAB HEMETOLOGY METHOD 02/08/2024 11:00 AM [facility] RBC 4.20 3.80 - 4.80 M/mcL LAB HEMETOLOGY METHOD 02/08/2024 11:00 AM [facility] Hemoglobin 11.7 11.5 - 16.0 g/dL LAB HEMETOLOGY METHOD 02/08/2024 11:00 AM [facility] Hematocrit 37.5 35.0 - 47.0 % LAB HEMETOLOGY METHOD 02/08/2024 11:00 AM [facility] MCV 88.9 79.0 - 98.0 FL LAB HEMETOLOGY METHOD 02/08/2024 11:00 AM [facility] MCH 27.7 27.0 - 32.0 pcg LAB HEMETOLOGY METHOD 02/08/2024 11:00 AM [facility] MCHC 31.2(L) 32.0 - 37.0 g/dL LAB HEMETOLOGY METHOD 02/08/2024 11:00 AM [facility] RDW 14.2 11.0 - 15.0 % LAB HEMETOLOGY METHOD 02/08/2024 11:00 AM [facility] Platelets 488(H) 130 - 400 K/mcL LAB HEMETOLOGY METHOD 02/08/2024 11:00 AM [facility] MPV 10.3 7.0 - 11.0 FL LAB HEMETOLOGY METHOD 02/08/2024 11:00 AM [facility] NRBC 0.0 <1.0 % LAB HEMETOLOGY METHOD 02/08/2024 11:00 AM [facility] NRBC Absolute 0.00 <0.10 K/mcL LAB HEMETOLOGY METHOD 02/08/2024 11:00 AM EST [facility] Blood Venous blood specimen / Unknown Venipuncture / Unknown 02/08/2024 8:40 AM EST 02/08/2024 10:46 AM EST us Gilson Davidson MD LAB BLOOD ORDERABLES Final Resul t [facility] [address] [place] [address], [place] [phone] documented in this encounter Visit Diagnoses Diagnosis Type 2 diabetes mellitus without complications (CMS/HCC V24, CMS/HCC V28) Essential (primary) hypertension Unspecified essential hypertension documented in this encounter Care Teams Safety Sealer Relationship Specialty Start Date End Date Kristin Bellamy MD [address] [facility] [address] [place], [place] PCP - General Internal Medicine 11/29/19 documented as of this encounter
--- OUTSIDE RECORDS SUMMARY | 2025-01-18 11:12 | XMS_ITS | Encounter Summary ---
Author Organization [facility] Address [address] [place] [address] Care Team Providers Care Wood Fence Erector Name Role Phone Kristin Bellamy MD Primary Care Provider [phone] Encounter Details Date Type Department Care Team (Late st Contact Info) Description 03/12/2024 Lab Requisition [facility] - Main Lab 299 [facility] [place] [address] Gilson Davidson MD [address] [place] [phone] Type 2 diabetes mellitus without complications [...] Sedimentation rate (03/13/2024 7:14 AM EST) Pathologist [facility] Sed Rate 76(H) 0 - 30 mm/hr LAB HEMETOLOGY METHOD 03/13/2024 1:03 PM EST [facility] Blood Venous blood specimen / Unknown Venipuncture / Unknown 03/13/2024 7:14 AM EST 03/13/2024 11:09 AM EST Gilson Davidson MD LAB BLOOD ORDERABLES Final Resul t Performing Organization Address [facility]/ZIP Co de Phone Number [facility] [address] [place] [address], [place] [phone] * (ABNORMAL) C-reactive protein (03/13/2024 7:14 AM EST) [facility] C-Reactive Protein 0.66(H) <=0.50 mg/dL LAB CHEMISTRY METHOD 03/13/2024 12:57 PM EST [facility] Blood Venous blood specimen / Unknown Venipuncture / Unknown 03/13/2024 7:14 AM EST 03/13/2024 11:09 AM EST Gilson Davidson MD LAB BLOOD ORDERABLES Final Resul t [facility] [address] [place] [address], [place] [phone] * (ABNORMAL) Basic metabolic panel (03/13/2024 7:14 AM EST) [facility] Sodium 137 133 - 145 mmol/L LAB CHEMISTRY METHOD 03/13/2024 12:[address] [facility] Potassium 5.2 3.5 - 5.5 mmol/L LAB CHEMISTRY METHOD 03/13/2024 12:[address] [facility] Chloride 106 96 - 110 mmol/L LAB CHEMISTRY METHOD 03/13/2024 12:[address] [facility] CO2 27 21 - 32 mmol/L LAB CHEMISTRY METHOD 03/13/2024 12:[address] [facility] Anion Gap 4 3 - 11 LAB CHEMISTRY METHOD 03/13/2024 12:[address] [facility] Glucose 83 70 - 100 mg/dL LAB CHEMISTRY METHOD 03/13/2024 12:[address] [facility] BUN 28(H) 5 - 25 mg/dL LAB CHEMISTRY METHOD 03/13/2024 12:[address] [facility] Creatinine 1.40(H) 0.50 - 1.10 mg/dL LAB CHEMISTRY METHOD 03/13/2024 12:[address] [facility] eGFR 43(L) >=60 mL/min/1. 73m2 LAB CHEMISTRY METHOD 03/13/2024 12:[address] [facility] Comment:Calculation based on the Chronic Kidney Disease Epidemiology Collaboration (CKD-EPI) equation refit without adjustment for race. BUN/Creatinine Ratio 20.0 LAB CHEMISTRY METHOD 03/13/2024 12:[address] [facility] Calcium 9.2 8.5 - 10.5 mg/dL LAB CHEMISTRY METHOD 03/13/2024 12:[address] [facility] Blood Venous blood specimen / Unknown Venipuncture / Unknown 03/13/2024 7:14 AM EST 03/13/2024 11:09 AM EST us Gilson Davidson MD LAB BLOOD ORDERABLES Final Resul t [facility] [address] [place] [address], [place] [phone] * (ABNORMAL) Complete blood count (03/13/2024 7:14 AM EST) [facility] WBC 9.6 4.8 - 10.8 K/mcL LAB HEMETOLOGY METHOD 03/13/2024 12:[address] [facility] RBC 4.40 3.80 - 4.80 M/mcL LAB HEMETOLOGY METHOD 03/13/2024 12:[address] [facility] Hemoglobin 11.9 11.5 - 16.0 g/dL LAB HEMETOLOGY METHOD 03/13/2024 12:[address] [facility] Hematocrit 37.9 35.0 - 47.0 % LAB HEMETOLOGY METHOD 03/13/2024 12:[address] [facility] MCV 86.5 79.0 - 98.0 FL LAB HEMETOLOGY METHOD 03/13/2024 12:[address] [facility] MCH 27.2 27.0 - 32.0 pcg LAB HEMETOLOGY METHOD 03/13/2024 12:[address] [facility] MCHC 31.4(L) 32.0 - 37.0 g/dL LAB HEMETOLOGY METHOD 03/13/2024 12:[address] [facility] RDW 14.2 11.0 - 15.0 % LAB HEMETOLOGY METHOD 03/13/2024 12:[address] [facility] Platelets 456(H) 130 - 400 K/mcL LAB HEMETOLOGY METHOD 03/13/2024 12:[address] [facility] MPV 10.3 7.0 - 11.0 FL LAB HEMETOLOGY METHOD 03/13/2024 12:[address] [facility] NRBC 0.0 <1.0 % LAB HEMETOLOGY METHOD 03/13/2024 12:[address] [facility] NRBC Absolute 0.00 <0.10 K/mcL LAB HEMETOLOGY METHOD 03/13/2024 12:54 PM EST [facility] Blood Venous blood specimen / Unknown Venipuncture / Unknown 03/13/2024 7:14 AM EST 03/13/2024 11:09 AM EST us Gilson Davidson MD LAB BLOOD ORDERABLES Final Resul t [facility] [address] [place] [address], [place] [phone] documented in this encounter Visit Diagnoses Diagnosis Type 2 diabetes mellitus without complications (CMS/HCC V24, CMS/HCC V28) Essential (primary) hypertension Unspecified essential hypertension documented in this encounter Care Teams Wood Fence Erector Relationship Specialty Start Date End Date Kristin Bellamy MD 12[address] [facility] [address] [place], [place] PCP - General Internal Medicine 11/29/19 documented as of this encounter
--- OUTSIDE RECORDS SUMMARY | 2025-01-18 11:12 | XMS_ITS | Encounter Summary ---
Author Organization [facility] Address [address] [place] [address] Care Team Providers Care Epic Cadence Analyst Name Role Phone Kristin Bellamy MD Primary Care Provider [phone] Encounter Details Date Type Department Care Team (Late st Contact Info) Description 06/18/2024 Lab Requisition [facility] - Main Lab 299 [facility] [place] [address] Gilson Davidson MD [address] [place] [address] 204 [facility] [phone] salvage determiner (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 antibiotics; Hyperlipidemia, unspecified; Other acute osteomyelitis, right ankle and foot (CMS/HCC V24, CMS/HCC V28); Charcot's joint, unspecified ankle and foot Social History Tobacco Use Types Packs/Day Years [...] Date/Time Associated Diagnosis Comments SEDIMENTATION RATE Routine 06/19/2024 5: 32 AM EDT alf (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 antibiotics Hyperlipidemia, unspecified Other acute osteomyelitis, right ankle and foot (CMS/HCC V24, CMS/HCC V28) Charcot's joint, unspecified ankle and foot COMPLETE BLOOD COUNT Routine 06/19/2024 5:32 AM EDT salvage determiner (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 antibiotics Hyperlipidemia, unspecified Other acute osteomyelitis, right ankle and foot (CMS/[facility] V24, CMS/[facility] V28) Charcot's joint, unspecified ankle and foot C-REACTIVE PROTEIN Routine 06/19/2024 5: 32 AM EDT alf (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 antibiotics Hyperlipidemia, unspecified Other acute osteomyelitis, right ankle and foot (CMS/[facility] V24, CMS/[facility] V28) Charcot's joint, unspecified ankle and foot COMPREHENSIVE METABOLIC PANEL Routine 06/19/2024 5:32 AM EDT alf (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 antibiotics Hyperlipidemia, unspecified Other acute osteomyelitis, right ankle and foot (CMS/[facility] V24, CMS/[facility] V28) Charcot's joint, unspecified ankle and foot documented in this encounter Results * (ABNORMAL) Sedimentation rate (06/19/2024 5:32 AM EDT) Pathologist [facility] Sed Rate 56(H) 0 - 30 mm/hr LAB HEMETOLOGY METHOD 06/19/2024 11:12 AM EDT [facility] Blood Venous blood specimen / Unknown Venipuncture / Unknown 06/19/2024 5:32 AM EDT 06/19/2024 10:28 AM EDT us Gilson Davidson MD LAB BLOOD ORDERABLES Final Resul t [facility] [address] [place] [address], * (ABNORMAL) C-reactive protein (06/19/2024 5:32 AM EDT) [facility] C-Reactive Protein 1.16(H) <=0.50 mg/dL LAB CHEMISTRY METHOD 06/19/2024 11:42 AM EDT [facility] Blood Venous blood specimen / Unknown Venipuncture / Unknown 06/19/2024 5:32 AM EDT 06/19/2024 10:14 AM EDT us Gilson Davidson MD LAB BLOOD ORDERABLES Final Resul t [facility] [address] [place] [address], [place] [phone] * (ABNORMAL) Comprehensive metabolic panel (06/19/2024 5:32 AM EDT) Sodium 139 133 - 145 mmol/L LAB CHEMISTRY METHOD 06/19/2024 11:25 AM T [facility] Potassium 4.3 3.5 - 5.5 mmol/L LAB CHEMISTRY METHOD 06/19/2024 11:25 AM [facility] Chloride 104 96 - 110 mmol/L LAB CHEMISTRY METHOD 06/19/2024 11:25 AM [facility] CO2 27 21 - 32 mmol/L LAB CHEMISTRY METHOD 06/19/2024 11:25 AM [facility] Anion Gap 8 3 - 11 LAB CHEMISTRY METHOD 06/19/2024 11:25 AM [facility] Glucose 70 70 - 100 mg/dL LAB CHEMISTRY METHOD 06/19/2024 11:25 AM [facility] BUN 34(H) 5 - 25 mg/dL LAB CHEMISTRY METHOD 06/19/2024 11:25 AM [facility] Creatinine 1.33(H) 0.50 - 1.10 mg/dL LAB CHEMISTRY METHOD 06/19/2024 11:25 AM [facility] eGFR 45(L) >=60 mL/min/1. 73m2 LAB CHEMISTRY METHOD 06/19/2024 11:25 AM [facility] Comment:Calculation based on the Chronic Kidney Disease Epidemiology Collaboration (CKD-EPI) equation refit without adjustment for race. BUN/Creatinine Ratio 25.6 LAB CHEMISTRY METHOD 06/19/2024 11:25 AM EDT [facility] Calcium 9.1 8.5 - 10.5 mg/dL LAB CHEMISTRY METHOD 06/19/2024 11:25 AM [facility] AST (SGOT) 20 10 - 42 unit/L LAB CHEMISTRY METHOD 06/19/2024 11:25 AM [facility] ALT (SGPT) 18 10 - 60 unit/L LAB CHEMISTRY METHOD 06/19/2024 11:25 AM [facility] Alkaline Phosphatase 67 42 - 121 unit/L LAB CHEMISTRY METHOD 06/19/2024 11:25 AM [facility] Total Protein 6.8 6.0 - 8.0 g/dL LAB CHEMISTRY METHOD 06/19/2024 11:25 AM [facility] Albumin 3.3 3.2 - 5.0 g/dL LAB CHEMISTRY METHOD 06/19/2024 11:25 AM [facility] Total Bilirubin 0.5 0.0 - 1.4 mg/dL LAB CHEMISTRY METHOD 06/19/2024 11:25 AM [facility] Blood Venous blood specimen / Unknown Venipuncture / Unknown 06/19/2024 5:32 AM EDT 06/19/2024 10:14 AM EDT us Gilson Daivdson MD LAB BLOOD ORDERABLES Final Resul t [facility] [address] [place] [address], * (ABNORMAL) Complete blood count (06/19/2024 5:32 AM EDT) WBC 7.5 4.8 - 10.8 K/mcL LAB HEMETOLOGY METHOD 06/19/2024 11:01 AM EDT [facility] RBC 3.80 3.80 - 4.80 M/mcL LAB HEMETOLOGY METHOD 06/19/2024 11:01 AM [facility] Hemoglobin 10.9(L) 11.5 - 16.0 g/dL LAB HEMETOLOGY METHOD 06/19/2024 11:01 AM [facility] Hematocrit 33.8(L) 35.0 - 47.0 % LAB HEMETOLOGY METHOD 06/19/2024 11:01 AM [facility] MCV 88.3 79.0 - 98.0 FL LAB HEMETOLOGY METHOD 06/19/2024 11:01 AM [facility] MCH 28.5 27.0 - 32.0 pcg LAB HEMETOLOGY METHOD 06/19/2024 11:01 AM [facility] MCHC 32.2 32.0 - 37.0 g/dL LAB HEMETOLOGY METHOD 06/19/2024 11:01 AM [facility] RDW 15.4(H) 11.0 - 15.0 % LAB HEMETOLOGY METHOD 06/19/2024 11:01 AM [facility] Platelets 328 130 - 400 K/[facility] LAB HEMETOLOGY METHOD 06/19/2024 11:01 AM [facility] MPV 10.2 7.0 - 11.0 FL LAB HEMETOLOGY METHOD 06/19/2024 11:01 AM [facility] NRBC 0.0 <1.0 % LAB HEMETOLOGY METHOD 06/19/2024 11:01 AM [facility] NRBC Absolute 0.00 <0.10 K/mcL LAB HEMETOLOGY METHOD 06/19/2024 11:01 AM [facility] Blood Venous blood specimen / Unknown Venipuncture / Unknown 06/19/2024 5:32 AM EDT 06/19/2024 10:28 AM EDT us Gilson Davidson MD LAB BLOOD ORDERABLES Final Resul t [facility] [address] [place] [address], documented in this encounter Visit Diagnoses Diagnosis salvage determiner (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 antibiotics Hyperlipidemia, unspecified Other acute osteomyelitis, right ankle and foot (CMS/HCC V24, CMS/HCC V28) Charcot's joint, unspecified ankle and foot documented in this encounter Care Teams Epic Cadence Analyst Relationship Specialty Start Date End Date Kristin Bellamy MD [address] PCP - General Internal Medicine 11/29/19 documented as of this encounter
--- OUTSIDE RECORDS SUMMARY | 2025-01-18 11:12 | XMS_ITS | Encounter Summary ---
Author Organization [facility] Address [address] [place] [address] Care Team Providers Care Car Construction Superintendent Name Role Phone Kristin Bellamy MD Primary Care Provider Encounter Details Date Type Department Care Team (Late st Contact Info) Description 04/09/[address] [facility] - Main Lab 299 [facility] [place] [address] Gilson Davidson MD [address] [place] [phone] Essential (primary) hypertension; Type 2 diabetes [...] (ABNORMAL) Sedimentation rate (04/10/2024 4:50 AM EST) [facility] Sed Rate 94(H) 0 - 30 mm/hr LAB HEMETOLOGY METHOD 04/10/2024 11:11 AM EST [facility] Blood Venous blood specimen / Unknown Venipuncture / Unknown 04/10/2024 4:50 AM EST 04/10/2024 9:58 AM EST Gilson Davidson MD LAB BLOOD ORDERABLES Final Resul t Performing Organization Address [facility]/ZIP Co de Phone Number [facility] [address] [place] [address], [place] [phone] * (ABNORMAL) C-reactive protein (04/10/2024 4:50 AM EST) [facility] C-Reactive Protein 1.08(H) <=0.50 mg/dL LAB CHEMISTRY METHOD 04/10/2024 10:55 AM EST [facility] Blood Venous blood specimen / Unknown Venipuncture / Unknown 04/10/2024 4:50 AM EST 04/10/2024 9:58 AM EST Gilson Davidson MD LAB BLOOD ORDERABLES Final Resul t [facility] [address] [place] [address], * (ABNORMAL) Basic metabolic panel (04/10/2024 4:50 AM EST) [facility] Sodium 141 133 - 145 mmol/L LAB CHEMISTRY METHOD 04/10/2024 10:46 AM [facility] Potassium 3.8 3.5 - 5.5 mmol/L LAB CHEMISTRY METHOD 04/10/2024 10:46 AM [facility] Chloride 106 96 - 110 mmol/L LAB CHEMISTRY METHOD 04/10/2024 10:46 AM [facility] CO2 25 21 - 32 mmol/L LAB CHEMISTRY METHOD 04/10/2024 10:46 AM [facility] Anion Gap 10 3 - 11 LAB CHEMISTRY METHOD 04/10/2024 10:46 AM [facility] Glucose 126(H) 70 - 100 mg/dL LAB CHEMISTRY METHOD 04/10/2024 10:46 AM [facility] BUN 15 5 - 25 mg/dL LAB CHEMISTRY METHOD 04/10/2024 10:46 AM [facility] Creatinine 1.22(H) 0.50 - 1.10 mg/dL LAB CHEMISTRY METHOD 04/10/2024 10:46 AM [facility] eGFR 50(L) >=60 mL/min/1. 73m2 LAB CHEMISTRY METHOD 04/10/2024 10:46 AM [facility] Comment:Calculation based on the Chronic Kidney Disease Epidemiology Collaboration (CKD-EPI) equation refit without adjustment for race. BUN/Creatinine Ratio 12.3 LAB CHEMISTRY METHOD 04/10/2024 10:46 AM [facility] Calcium 8.8 8.5 - 10.5 mg/dL LAB CHEMISTRY METHOD 04/10/2024 10:46 AM [facility] Blood Venous blood specimen / Unknown Venipuncture / Unknown 04/10/2024 4:50 AM EST 04/10/2024 9:58 AM EST us Gilson Davidson MD LAB BLOOD ORDERABLES Final Resul t [facility] [address] [place] [address], [place] [phone] * (ABNORMAL) Complete blood count (04/10/2024 4:50 AM EST) [facility] WBC 10.4 4.8 - 10.8 K/mcL LAB HEMETOLOGY METHOD 04/10/2024 10:50 AM [facility] RBC 3.70(L) 3.80 - 4.80 M/mcL LAB HEMETOLOGY METHOD 04/10/2024 10:50 AM [facility] Hemoglobin 9.8(L) 11.5 - 16.0 g/dL LAB HEMETOLOGY METHOD 04/10/2024 10:50 AM [facility] Hematocrit 31.2(L) 35.0 - 47.0 % LAB HEMETOLOGY METHOD 04/10/2024 10:50 AM [facility] MCV 85.0 79.0 - 98.0 FL LAB HEMETOLOGY METHOD 04/10/2024 10:50 AM [facility] MCH 26.7(L) 27.0 - 32.0 pcg LAB HEMETOLOGY METHOD 04/10/2024 10:50 AM [facility] MCHC 31.4(L) 32.0 - 37.0 g/dL LAB HEMETOLOGY METHOD 04/10/2024 10:50 AM [facility] RDW 14.6 11.0 - 15.0 % LAB HEMETOLOGY METHOD 04/10/2024 10:50 AM [facility] Platelets 425(H) 130 - 400 K/mcL LAB HEMETOLOGY METHOD 04/10/2024 10:50 AM [facility] MPV 9.6 7.0 - 11.0 FL LAB HEMETOLOGY METHOD 04/10/2024 10:50 AM [facility] NRBC 0.0 <1.0 % LAB HEMETOLOGY METHOD 04/10/2024 10:50 AM [facility] NRBC Absolute 0.00 <0.10 K/[facility] LAB HEMETOLOGY METHOD 04/10/2024 10:50 AM EST [facility] Blood Venous blood specimen / Unknown Venipuncture / Unknown 04/10/2024 4:50 AM EST 04/10/2024 9:58 AM EST us Gilson Davidson MD LAB BLOOD ORDERABLES Final Resul t [facility] [address] [place] [address], documented in this encounter Visit Diagnoses Diagnosis Essential (primary) hypertension Unspecified essential hypertension Type 2 diabetes mellitus without complications (CMS/HCC V24, CMS/HCC V28) documented in this encounter Care Teams Car Construction Superintendent Relationship Specialty Start Date End Date Kristin Bellamy MD [facility] [address] PCP - General Internal Medicine 11/29/19 documented as of this encounter
--- OUTSIDE RECORDS SUMMARY | 2025-01-18 11:12 | XMS_ITS | Encounter Summary ---
Author Organization [facility] Address [address] [place] [address] Care Team Providers Care Hair Clipper Power Name Role Phone Kristin Bellamy MD Primary Care Provider [phone] Encounter Details Date Type Department Care Team (Late st Contact Info) Description 01/05/[address] [facility] - Main Lab 299 [facility] [place] [address] Gilson Davidson MD [address] [place] [address] 204 [facility] [phone] Type 2 diabetes mellitus without [...] CBC auto differential (01/05/2024 5:02 AM EST) [facility] WBC 9.0 4.8 - 10.8 K/mcL LAB HEMETOLOGY METHOD 01/05/2024 6:52 AM [facility] RBC 3.10(L) 3.80 - 4.80 M/mcL LAB HEMETOLOGY METHOD 01/05/2024 6:52 AM [facility] Hemoglobin 8.8(L) 11.5 - 16.0 g/dL LAB HEMETOLOGY METHOD 01/05/2024 6:52 AM [facility] Hematocrit 27.8(L) 35.0 - 47.0 % LAB HEMETOLOGY METHOD 01/05/2024 6:52 AM [facility] MCV 88.8 79.0 - 98.0 FL LAB HEMETOLOGY METHOD 01/05/2024 6:52 AM [facility] MCH 28.1 27.0 - 32.0 pcg LAB HEMETOLOGY METHOD 01/05/2024 6:52 AM [facility] MCHC 31.7(L) 32.0 - 37.0 g/dL LAB HEMETOLOGY METHOD 01/05/2024 6:52 AM [facility] RDW 13.0 11.0 - 15.0 % LAB HEMETOLOGY METHOD 01/05/2024 6:52 AM [facility] Platelets 370 130 - 400 K/mcL LAB HEMETOLOGY METHOD 01/05/2024 6:52 AM [facility] MPV 9.7 7.0 - 11.0 FL LAB HEMETOLOGY METHOD 01/05/2024 6:52 AM [facility] NRBC 0.0 <1.0 % LAB HEMETOLOGY METHOD 01/05/2024 6:52 AM [facility] NRBC Absolute 0.00 <0.10 K/mcL LAB HEMETOLOGY METHOD 01/05/2024 6:52 AM [facility] Neutrophils Relative 64.8 % LAB HEMETOLOGY METHOD 01/05/2024 6:52 AM [facility] Lymphocytes Relative 23.0 % LAB HEMETOLOGY METHOD 01/05/2024 6:52 AM [facility] Monocytes Relative 6.4 % LAB HEMETOLOGY METHOD 01/05/2024 6:52 AM [facility] Eosinophils Relative 3.4 % LAB HEMETOLOGY METHOD 01/05/2024 6:52 AM [facility] Basophils Relative 0.4 % LAB HEMETOLOGY METHOD 01/05/2024 6:52 AM [facility] Immature Granulocytes Relative 2.0 % LAB HEMETOLOGY METHOD 01/05/2024 6:52 AM [facility] Neutrophils Absolute 5.83 1.50 - 7.00 K/mcL LAB HEMETOLOGY METHOD 01/05/2024 6:52 AM [facility] Lymphocytes Absolute 2.07 1.00 - 5.00 K/mcL LAB HEMETOLOGY METHOD 01/05/2024 6:52 AM [facility] Monocytes Absolute 0.58 0.20 - 1.00 K/mcL LAB HEMETOLOGY METHOD 01/05/2024 6:52 AM [facility] Eosinophils Absolute 0.31 0.00 - 0.50 K/mcL LAB HEMETOLOGY METHOD 01/05/2024 6:52 AM [facility] Basophils Absolute 0.04 0.00 - 0.20 K/mcL LAB HEMETOLOGY METHOD 01/05/2024 6:52 AM [facility] Immature Granulocytes Absolute 0.18(H) 0.00 - 0.03 K/mcL LAB HEMETOLOGY METHOD 01/05/2024 6:52 AM [facility] Blood Venous blood specimen / Unknown Venipuncture / Unknown 01/05/2024 5:02 AM EST 01/05/2024 6:25 AM EST Gilson Davidson MD LAB BLOOD ORDERABLES Final Resul t Performing Organization Address City/[facility]/ZIP Co de Phone Number [facility] [address] [place] [address], [place] [phone] * Hemoglobin A1c (01/05/2024 5:02 AM EST) Hemoglobin A1C 6.4 <6.5 % LAB CHEMISTRY METHOD 01/05/2024 2:01 PM [facility] Mean Bld Glu Estim. 137 mg/dL LAB CHEMISTRY METHOD 01/05/2024 2:01 PM [facility] Blood Venous blood specimen / Unknown Venipuncture / Unknown 01/05/2024 5:02 AM EST 01/05/2024 6:25 AM EST Gilson Davidson MD LAB BLOOD ORDERABLES Final Resul t Performing Organization Address City/[facility]/ZIP Co de Phone Number [facility] [address] [place] [address], [place] [phone] * (ABNORMAL) Comprehensive metabolic panel (01/05/2024 5:02 AM EST) Sodium 137 133 - 145 mmol/L LAB CHEMISTRY METHOD 01/05/2024 7:13 AM [facility] Potassium 4.5 3.5 - 5.5 mmol/L LAB CHEMISTRY METHOD 01/05/2024 7:13 AM [facility] Chloride 107 96 - 110 mmol/L LAB CHEMISTRY METHOD 01/05/2024 7:13 AM [facility] CO2 27 21 - 32 mmol/L LAB CHEMISTRY METHOD 01/05/2024 7:13 AM [facility] Anion Gap 3 3 - 11 LAB CHEMISTRY METHOD 01/05/2024 7:13 AM [facility] Glucose 114(H) 70 - 100 mg/dL LAB CHEMISTRY METHOD 01/05/2024 7:13 AM [facility] BUN 18 5 - 25 mg/dL LAB CHEMISTRY METHOD 01/05/2024 7:13 AM [facility] Creatinine 1.25(H) 0.50 - 1.10 mg/dL LAB CHEMISTRY METHOD 01/05/2024 7:13 AM [facility] eGFR 49(L) >=60 mL/min/1. 73m2 LAB CHEMISTRY METHOD 01/05/2024 7:13 AM [facility] Comment:Calculation based on the Chronic Kidney Disease Epidemiology Collaboration (CKD-EPI) equation refit without adjustment for race. BUN/Creatinine Ratio 14.4 LAB CHEMISTRY METHOD 01/05/2024 7:13 AM [facility] Calcium 8.8 8.5 - 10.5 mg/dL LAB CHEMISTRY METHOD 01/05/2024 7:13 AM [facility] AST (SGOT) 21 10 - 42 unit/L LAB CHEMISTRY METHOD 01/05/2024 7:13 AM [facility] ALT (SGPT) 9(L) 10 - 60 unit/L LAB CHEMISTRY METHOD 01/05/2024 7:13 AM [facility] Alkaline Phosphatase 75 42 - 121 unit/L LAB CHEMISTRY METHOD 01/05/2024 7:13 AM [facility] Total Protein 6.9 6.0 - 8.0 g/dL LAB CHEMISTRY METHOD 01/05/2024 7:13 AM [facility] Albumin 2.6(L) 3.2 - 5.0 g/dL LAB CHEMISTRY METHOD 01/05/2024 7:13 AM EST [facility] Total Bilirubin 0.2 0.0 - 1.4 mg/dL LAB CHEMISTRY METHOD 01/05/2024 7:13 AM EST [facility] Blood Venous blood specimen / Unknown Venipuncture / Unknown 01/05/2024 5:02 AM EST 01/05/2024 6:25 AM EST us Gilson Davidson MD LAB BLOOD ORDERABLES Final Resul t [facility] [address] [place] [address], documented in this encounter Visit Diagnoses Diagnosis Type 2 diabetes mellitus without complications (CMS/HCC V24, CMS/HCC V28) Essential (primary) hypertension Unspecified essential hypertension documented in this encounter Care Teams Hair Clipper Power Relationship Specialty Start Date End Date Kristin Bellamy MD [address] [facility] [address] [place], [place] PCP - General Internal Medicine 11/29/19 documented as of this encounter
--- OUTSIDE RECORDS SUMMARY | 2025-01-18 11:12 | XMS_ITS | Encounter Summary ---
Author Organization [facility] Address [address] [place] [address] Care Team Providers Care Senior Production Supervisor Name Role Phone Kristin Bellamy MD Primary Care Provider [phone] Encounter Details Date Type Department Care Team (Late st Contact Info) Description 03/26/2024 Lab Requisition [facility] - Main Lab 299 [facility] [place] [address] Gilson Davidson MD [address] [place] [phone] Essential (primary) hypertension; Type 2 diabetes [...] Sedimentation rate (03/27/2024 7:55 AM EST) Pathologist [facility] Sed Rate 123(H) 0 - 30 mm/hr LAB HEMETOLOGY METHOD 03/27/2024 11:45 AM EST [facility] Blood Venous blood specimen / Unknown Venipuncture / Unknown 03/27/2024 7:55 AM EST 03/27/2024 11:01 AM EST Gilson Davidson MD LAB BLOOD ORDERABLES Final Resul t Performing Organization Address [facility]/ZIP Co de Phone Number [facility] [address] [place] [address], [place] [phone] * (ABNORMAL) C-reactive protein (03/27/2024 7:55 AM EST) [facility] C-Reactive Protein 5.12(H) <=0.50 mg/dL LAB CHEMISTRY METHOD 03/27/2024 11:56 AM EST [facility] Blood Venous blood specimen / Unknown Venipuncture / Unknown 03/27/2024 7:55 AM EST 03/27/2024 11:01 AM EST Gilson Davidson MD LAB BLOOD ORDERABLES Final Resul t [facility] [address] [place] [address], [place] [phone] * (ABNORMAL) Basic metabolic panel (03/27/2024 7:55 AM EST) [facility] Sodium 137 133 - 145 mmol/L LAB CHEMISTRY METHOD 03/27/2024 11:[address] [facility] Potassium 4.5 3.5 - 5.5 mmol/L LAB CHEMISTRY METHOD 03/27/2024 11:[address] [facility] Chloride 108 96 - 110 mmol/L LAB CHEMISTRY METHOD 03/27/2024 11:[address] [facility] CO2 24 21 - 32 mmol/L LAB CHEMISTRY METHOD 03/27/2024 11:[address] [facility] Anion Gap 5 3 - 11 LAB CHEMISTRY METHOD 03/27/2024 11:[address] [facility] Glucose 86 70 - 100 mg/dL LAB CHEMISTRY METHOD 03/27/2024 11:[address] [facility] BUN 24 5 - 25 mg/dL LAB CHEMISTRY METHOD 03/27/2024 11:[address] [facility] Creatinine 1.21(H) 0.50 - 1.10 mg/dL LAB CHEMISTRY METHOD 03/27/2024 11:[address] [facility] eGFR 51(L) >=60 mL/min/1. 73m2 LAB CHEMISTRY METHOD 03/27/2024 11:[address] [facility] Comment:Calculation based on the Chronic Kidney Disease Epidemiology Collaboration (CKD-EPI) equation refit without adjustment for race. BUN/Creatinine Ratio 19.8 LAB CHEMISTRY METHOD 03/27/2024 11:[address] [facility] Calcium 8.7 8.5 - 10.5 mg/dL LAB CHEMISTRY METHOD 03/27/2024 11:[address] [facility] Blood Venous blood specimen / Unknown Venipuncture / Unknown 03/27/2024 7:55 AM EST 03/27/2024 11:01 AM EST us Gilson Davidson MD LAB BLOOD ORDERABLES Final Resul t [facility] [address] [place] [address], [place] [phone] * (ABNORMAL) Complete blood count (03/27/2024 7:55 AM EST) [facility] WBC 7.6 4.8 - 10.8 K/mcL LAB HEMETOLOGY METHOD 03/27/2024 11:[address] [facility] RBC 3.60(L) 3.80 - 4.80 M/mcL LAB HEMETOLOGY METHOD 03/27/2024 11:[address] [facility] Hemoglobin 9.7(L) 11.5 - 16.0 g/dL LAB HEMETOLOGY METHOD 03/27/2024 11:[address] [facility] Hematocrit 30.6(L) 35.0 - 47.0 % LAB HEMETOLOGY METHOD 03/27/2024 11:[address] [facility] MCV 84.8 79.0 - 98.0 FL LAB HEMETOLOGY METHOD 03/27/2024 11:[address] [facility] MCH 26.9(L) 27.0 - 32.0 pcg LAB HEMETOLOGY METHOD 03/27/2024 11:[address] [facility] MCHC 31.7(L) 32.0 - 37.0 g/dL LAB HEMETOLOGY METHOD 03/27/2024 11:[address] [facility] RDW 14.1 11.0 - 15.0 % LAB HEMETOLOGY METHOD 03/27/2024 11:[address] [facility] Platelets 361 130 - 400 K/mcL LAB HEMETOLOGY METHOD 03/27/2024 11:[address] [facility] MPV 10.3 7.0 - 11.0 FL LAB HEMETOLOGY METHOD 03/27/2024 11:[address] [facility] NRBC 0.0 <1.0 % LAB HEMETOLOGY METHOD 03/27/2024 11:35 AM EST [facility] NRBC Absolute 0.00 <0.10 K/mcL LAB HEMETOLOGY METHOD 03/27/2024 11:35 AM EST [facility] Blood Venous blood specimen / Unknown Venipuncture / Unknown 03/27/2024 7:55 AM EST 03/27/2024 11:01 AM EST us Gilson Davidson MD LAB BLOOD ORDERABLES Final Resul t [facility] [address] [place] [address], documented in this encounter Visit Diagnoses Diagnosis Essential (primary) hypertension Unspecified essential hypertension Type 2 diabetes mellitus without complications (CMS/HCC V24, CMS/HCC V28) documented in this encounter Care Teams Senior Production Supervisor Relationship Specialty Start Date End Date Kristin Bellamy MD [address] [facility] [address] [place], [place] PCP - General Internal Medicine 11/29/19 documented as of this encounter
--- OUTSIDE RECORDS SUMMARY | 2025-01-18 11:12 | XMS_ITS | Encounter Summary ---
Author Organization [facility] Address [address] [place] [address] Care Team Providers Care Butt Sawyer Name Role Phone Kristin Bellamy MD Primary Care Provider [phone] Encounter Details Date Type Department Care Team (Late st Contact Info) Description 01/23/2024 Lab Requisition [facility] - Main Lab 299 [facility] [place] [address] Gilson Davidson MD [address] [place] [address] 204 [facility] [phone] Type 2 diabetes [...] (ABNORMAL) C-reactive protein (01/24/2024 8:13 AM EST) [facility] C-Reactive Protein 1.54(H) <=0.50 mg/dL LAB CHEMISTRY METHOD 01/24/2024 12:35 PM EST [facility] Blood Venous blood specimen / Unknown Venipuncture / Unknown 01/24/2024 8:13 AM EST 01/24/2024 11:39 AM EST Gilson Davidson MD LAB BLOOD ORDERABLES Final Resul t Performing Organization Address City/[facility]/ZIP Co de Phone Number [facility] [address] [place] [address], [place] [phone] * (ABNORMAL) Sedimentation rate (01/24/2024 8:13 AM EST) [facility] Sed Rate 91(H) 0 - 30 mm/hr LAB HEMETOLOGY METHOD 01/24/2024 12:43 PM EST [facility] Blood Venous blood specimen / Unknown Venipuncture / Unknown 01/24/2024 8:13 AM EST 01/24/2024 11:39 AM EST Gilson Davidson MD LAB BLOOD ORDERABLES Final Resul t [facility] [address] [place] [address], [place] [phone] * (ABNORMAL) Basic metabolic panel (01/24/2024 8:13 AM EST) [facility] Sodium 137 133 - 145 mmol/L LAB CHEMISTRY METHOD 01/24/2024 12:25 PM [facility] Potassium 4.3 3.5 - 5.5 mmol/L LAB CHEMISTRY METHOD 01/24/2024 12:25 PM [facility] Chloride 103 96 - 110 mmol/L LAB CHEMISTRY METHOD 01/24/2024 12:25 PM [facility] CO2 26 21 - 32 mmol/L LAB CHEMISTRY METHOD 01/24/2024 12:25 PM [facility] Anion Gap 8 3 - 11 LAB CHEMISTRY METHOD 01/24/2024 12:25 PM [facility] Glucose 173(H) 70 - 100 mg/dL LAB CHEMISTRY METHOD 01/24/2024 12:25 PM [facility] BUN 19 5 - 25 mg/dL LAB CHEMISTRY METHOD 01/24/2024 12:25 PM [facility] Creatinine 1.20(H) 0.50 - 1.10 mg/dL LAB CHEMISTRY METHOD 01/24/2024 12:25 PM [facility] eGFR 51(L) >=60 mL/min/1. 73m2 LAB CHEMISTRY METHOD 01/24/2024 12:25 PM [facility] Comment:Calculation based on the Chronic Kidney Disease Epidemiology Collaboration (CKD-EPI) equation refit without adjustment for race. BUN/Creatinine Ratio 15.8 LAB CHEMISTRY METHOD 01/24/2024 12:25 PM [facility] Calcium 9.2 8.5 - 10.5 mg/dL LAB CHEMISTRY METHOD 01/24/2024 12:25 PM [facility] Blood Venous blood specimen / Unknown Venipuncture / Unknown 01/24/2024 8:13 AM EST 01/24/2024 11:39 AM EST us Gilson Davidson MD LAB BLOOD ORDERABLES Final Resul t [facility] [address] [place] [address], [place] [phone] * (ABNORMAL) Complete blood count (01/24/2024 8:13 AM EST) [facility] WBC 6.8 4.8 - 10.8 K/mcL LAB HEMETOLOGY METHOD 01/24/2024 12:18 PM [facility] RBC 3.80 3.80 - 4.80 M/mcL LAB HEMETOLOGY METHOD 01/24/2024 12:18 PM [facility] Hemoglobin 10.3(L) 11.5 - 16.0 g/dL LAB HEMETOLOGY METHOD 01/24/2024 12:18 PM [facility] Hematocrit 33.3(L) 35.0 - 47.0 % LAB HEMETOLOGY METHOD 01/24/2024 12:18 PM [facility] MCV 88.8 79.0 - 98.0 FL LAB HEMETOLOGY METHOD 01/24/2024 12:18 PM [facility] MCH 27.5 27.0 - 32.0 pcg LAB HEMETOLOGY METHOD 01/24/2024 12:18 PM [facility] MCHC 30.9(L) 32.0 - 37.0 g/dL LAB HEMETOLOGY METHOD 01/24/2024 12:18 PM [facility] RDW 13.9 11.0 - 15.0 % LAB HEMETOLOGY METHOD 01/24/2024 12:18 PM [facility] Platelets 273 130 - 400 K/mcL LAB HEMETOLOGY METHOD 01/24/2024 12:18 PM [facility] MPV 10.7 7.0 - 11.0 FL LAB HEMETOLOGY METHOD 01/24/2024 12:18 PM [facility] NRBC 0.0 <1.0 % LAB HEMETOLOGY METHOD 01/24/2024 12:18 PM [facility] NRBC Absolute 0.00 <0.10 K/[facility] LAB HEMETOLOGY METHOD 01/24/2024 12:18 PM EST [facility] Blood Venous blood specimen / Unknown Venipuncture / Unknown 01/24/2024 8:13 AM EST 01/24/2024 11:39 AM EST us Gilson Davidson MD LAB BLOOD ORDERABLES Final Resul t [facility] [address] [place] [address], documented in this encounter Visit Diagnoses Diagnosis Type 2 diabetes mellitus without complications (CMS/HCC V24, CMS/HCC V28) Essential (primary) hypertension Unspecified essential hypertension documented in this encounter Care Teams Butt Sawyer Relationship Specialty Start Date End Date Kristin Bellamy MD [address] [facility] [address] [place], [place] PCP - General Internal Medicine 11/29/19 documented as of this encounter
--- OUTSIDE RECORDS SUMMARY | 2025-01-18 11:12 | XMS_ITS | Encounter Summary ---
Author Organization [facility] Address [address] [place] [address] Care Team Providers Care Acid Bleacher Name Role Phone Kristin Bellamy MD Primary Care Provider [phone] Encounter Details Date Type Department Care Team (Late st Contact Info) Description 02/27/2024 Lab Requisition [facility] - Main Lab [address] [facility] [place] [address] Gilson Davidson MD [address] [place] [address] 204 [facility] [phone] Non-pressure chronic ulcer of unspecified part [...] * C-reactive protein (02/28/2024 6:00 AM EST) [facility] C-Reactive Protein 0.44 <=0.50 mg/dL LAB CHEMISTRY METHOD 02/28/2024 8:44 AM EST [facility] Blood Venous blood specimen / Unknown Venipuncture / Unknown 02/28/2024 6:00 AM EST 02/28/2024 7:59 AM EST us Gilson Davidson MD LAB BLOOD ORDERABLES Final Resul t [facility] [address] [place] [address], * (ABNORMAL) Sedimentation rate (02/28/2024 6:00 AM EST) [facility] Sed Rate 51(H) 0 - 30 mm/hr LAB HEMETOLOGY METHOD 02/28/2024 8:40 AM [facility] Blood Venous blood specimen / Unknown Venipuncture / Unknown 02/28/2024 6:00 AM EST 02/28/2024 7:59 AM EST us Gilson Davidson MD LAB BLOOD ORDERABLES Final Resul t [facility] [address] [place] [address], [place] [phone] * (ABNORMAL) Basic metabolic panel (02/28/2024 6:00 AM EST) Sodium 140 133 - 145 mmol/L LAB CHEMISTRY METHOD 02/28/2024 8:42 AM [facility] Potassium 4.6 3.5 - 5.5 mmol/L LAB CHEMISTRY METHOD 02/28/2024 8:42 AM [facility] Chloride 107 96 - 110 mmol/L LAB CHEMISTRY METHOD 02/28/2024 8:42 AM [facility] CO2 28 21 - 32 mmol/L LAB CHEMISTRY METHOD 02/28/2024 8:42 AM [facility] Anion Gap 5 3 - 11 LAB CHEMISTRY METHOD 02/28/2024 8:42 AM [facility] Glucose 99 70 - 100 mg/dL LAB CHEMISTRY METHOD 02/28/2024 8:42 AM [facility] BUN 28(H) 5 - 25 mg/dL LAB CHEMISTRY METHOD 02/28/2024 8:42 AM [facility] Creatinine 1.39(H) 0.50 - 1.10 mg/dL LAB CHEMISTRY METHOD 02/28/2024 8:42 AM [facility] eGFR 43(L) >=60 mL/min/1. 73m2 LAB CHEMISTRY METHOD 02/28/2024 8:42 AM [facility] Comment:Calculation based on the Chronic Kidney Disease Epidemiology Collaboration (CKD-EPI) equation refit without adjustment for race. BUN/Creatinine Ratio 20.1 LAB CHEMISTRY METHOD 02/28/2024 8:42 AM EST [facility] Calcium 8.9 8.5 - 10.5 mg/dL LAB CHEMISTRY METHOD 02/28/2024 8:42 AM [facility] Blood Venous blood specimen / Unknown Venipuncture / Unknown 02/28/2024 6:00 AM EST 02/28/2024 7:59 AM EST us Gilson Davidson MD LAB BLOOD ORDERABLES Final Resul t [facility] [address] [place] [address], [place] [phone] * (ABNORMAL) Complete blood count (02/28/2024 6:00 AM EST) WBC 6.7 4.8 - 10.8 K/mcL LAB HEMETOLOGY METHOD 02/28/2024 8:24 AM [facility] RBC 3.90 3.80 - 4.80 M/mcL LAB HEMETOLOGY METHOD 02/28/2024 8:24 AM [facility] Hemoglobin 10.7(L) 11.5 - 16.0 g/dL LAB HEMETOLOGY METHOD 02/28/2024 8:24 AM [facility] Hematocrit 33.6(L) 35.0 - 47.0 % LAB HEMETOLOGY METHOD 02/28/2024 8:24 AM [facility] MCV 86.8 79.0 - 98.0 FL LAB HEMETOLOGY METHOD 02/28/2024 8:24 AM [facility] MCH 27.6 27.0 - 32.0 pcg LAB HEMETOLOGY METHOD 02/28/2024 8:24 AM [facility] MCHC 31.8(L) 32.0 - 37.0 g/dL LAB HEMETOLOGY METHOD 02/28/2024 8:24 AM EST [facility] RDW 14.3 11.0 - 15.0 % LAB HEMETOLOGY METHOD 02/28/2024 8:24 AM [facility] Platelets 411(H) 130 - 400 K/mcL LAB HEMETOLOGY METHOD 02/28/2024 8:24 AM EST [facility] MPV 10.0 7.0 - 11.0 FL LAB HEMETOLOGY METHOD 02/28/2024 8:24 AM EST [facility] NRBC 0.0 <1.0 % LAB HEMETOLOGY METHOD 02/28/2024 8:24 AM [facility] NRBC Absolute 0.00 <0.10 K/mcL LAB HEMETOLOGY METHOD 02/28/2024 8:24 AM [facility] Blood Venous blood specimen / Unknown Venipuncture / Unknown 02/28/2024 6:00 AM EST 02/28/2024 7:59 AM EST us Gilson Davidson MD LAB BLOOD ORDERABLES Final Resul t [facility] [address] [place] [address], documented in this encounter Visit Diagnoses Diagnosis 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
--- OUTSIDE RECORDS SUMMARY | 2025-01-18 11:12 | XMS_ITS | Encounter Summary ---
Author Organization [facility] Address [address] [place] [address] Care Team Providers Care Sap Bw Developer Name Role Phone Kristin Bellamy MD Primary Care Provider [phone] Encounter Details Date Type Department Care Team (Late st Contact Info) Description 03/19/2024 Lab Requisition [facility] - Main Lab [address] [facility] [place] [address] Gilson Davidson MD [address] [place] [phone] Type 2 diabetes mellitus without complications [...] ORDERABLES Final Resul t Performing Organization Address [facility]/ZIP Co de Phone Number [facility] [address] [place] [address], [place] [phone] * (ABNORMAL) C-reactive protein (03/20/2024 6:04 AM EST) [facility] C-Reactive Protein 1.78(H) <=0.50 mg/dL LAB CHEMISTRY METHOD 03/20/2024 12:22 PM EST [facility] Blood Venous blood specimen / Unknown Venipuncture / Unknown 03/20/2024 6:04 AM EST 03/20/2024 10:37 AM EST Gilson Davidson MD LAB BLOOD ORDERABLES Final Resul t [facility] [address] [place] [address], [place] [phone] * (ABNORMAL) Basic metabolic panel (03/20/2024 6:04 AM EST) [facility] Sodium 137 133 - 145 mmol/L LAB CHEMISTRY METHOD 03/20/2024 12:22 PM [facility] Potassium 4.8 3.5 - 5.5 mmol/L LAB CHEMISTRY METHOD 03/20/2024 12:22 PM [facility] Comment:Hemolysis present Chloride 105 96 - 110 mmol/L LAB CHEMISTRY METHOD 03/20/2024 12:22 PM [facility] CO2 26 21 - 32 mmol/L LAB CHEMISTRY METHOD 03/20/2024 12:22 PM [facility] Anion Gap 6 3 - 11 LAB CHEMISTRY METHOD 03/20/2024 12:22 PM [facility] Glucose 104(H) 70 - 100 mg/dL LAB CHEMISTRY METHOD 03/20/2024 12:22 PM [facility] BUN 27(H) 5 - 25 mg/dL LAB CHEMISTRY METHOD 03/20/2024 12:22 PM [facility] Creatinine 1.22(H) 0.50 - 1.10 mg/dL LAB CHEMISTRY METHOD 03/20/2024 12:22 PM [facility] eGFR 50(L) >=60 mL/min/1. 73m2 LAB CHEMISTRY METHOD 03/20/2024 12:22 PM [facility] Comment:Calculation based on the Chronic Kidney Disease Epidemiology Collaboration (CKD-EPI) equation refit without adjustment for race. BUN/Creatinine Ratio 22.1 LAB CHEMISTRY METHOD 03/20/2024 12:22 PM [facility] Calcium 9.5 8.5 - 10.5 mg/dL LAB CHEMISTRY METHOD 03/20/2024 12:22 PM [facility] Blood Venous blood specimen / Unknown Venipuncture / Unknown 03/20/2024 6:04 AM EST 03/20/2024 10:37 AM EST us Gilson Davidson MD LAB BLOOD ORDERABLES Final Resul t [facility] [address] [place] [address], * (ABNORMAL) Complete blood count (03/20/2024 6:04 AM EST) [facility] WBC 9.3 4.8 - 10.8 K/mcL LAB HEMETOLOGY METHOD 03/20/2024 11:05 AM [facility] RBC 4.50 3.80 - 4.80 M/mcL LAB HEMETOLOGY METHOD 03/20/2024 11:05 AM [facility] Hemoglobin 12.1 11.5 - 16.0 g/dL LAB HEMETOLOGY METHOD 03/20/2024 11:05 AM [facility] Hematocrit 38.6 35.0 - 47.0 % LAB HEMETOLOGY METHOD 03/20/2024 11:05 AM [facility] MCV 86.5 79.0 - 98.0 FL LAB HEMETOLOGY METHOD 03/20/2024 11:05 AM [facility] MCH 27.1 27.0 - 32.0 pcg LAB HEMETOLOGY METHOD 03/20/2024 11:05 AM [facility] MCHC 31.3(L) 32.0 - 37.0 g/dL LAB HEMETOLOGY METHOD 03/20/2024 11:05 AM [facility] RDW 13.9 11.0 - 15.0 % LAB HEMETOLOGY METHOD 03/20/2024 11:05 AM [facility] Platelets 453(H) 130 - 400 K/mcL LAB HEMETOLOGY METHOD 03/20/2024 11:05 AM [facility] MPV 10.4 7.0 - 11.0 FL LAB HEMETOLOGY METHOD 03/20/2024 11:05 AM [facility] NRBC 0.0 <1.0 % LAB HEMETOLOGY METHOD 03/20/2024 11:05 AM EST [facility] NRBC Absolute 0.00 <0.10 K/mcL LAB HEMETOLOGY METHOD 03/20/2024 11:05 AM EST [facility] Blood Venous blood specimen / Unknown Venipuncture / Unknown 03/20/2024 6:04 AM EST 03/20/2024 10:37 AM EST us Gilson Davidson MD LAB BLOOD ORDERABLES Final Resul t [facility] [address] [place] [address], documented in this encounter Visit Diagnoses Diagnosis Type 2 diabetes mellitus without complications (CMS/HCC V24, CMS/HCC V28) Essential (primary) hypertension Unspecified essential hypertension documented in this encounter Care Teams Sap Bw Developer Relationship Specialty Start Date End Date Kristin Bellamy MD [address] [facility] [address] [place], [place] PCP - General Internal Medicine 11/29/19 documented as of this encounter
--- OUTSIDE RECORDS SUMMARY | 2025-01-18 11:12 | XMS_ITS | Encounter Summary ---
Author Organization [facility] Address [address] [place] [address] Care Team Providers Care Clinical Psychology Professor Name Role Phone Kristin Bellamy MD Primary Care Provider [phone] Encounter Details Date Type Department Care Team (Late st Contact Info) Description 05/07/2024 Lab Requisition [facility] - Main Lab [address] [facility] [place] [address] Gilson Davidson MD [address] [place] [address] [address] [facility] [phone] Type 2 diabetes mellitus without [...] mmol/L LAB CHEMISTRY METHOD 05/08/2024 11:59 AM [facility] Potassium 4.6 3.5 - 5.5 mmol/L LAB CHEMISTRY METHOD 05/08/2024 11:59 AM [facility] Chloride 106 96 - 110 mmol/L LAB CHEMISTRY METHOD 05/08/2024 11:59 AM [facility] CO2 25 21 - 32 mmol/L LAB CHEMISTRY METHOD 05/08/2024 11:59 AM [facility] Anion Gap 7 3 - 11 LAB CHEMISTRY METHOD 05/08/2024 11:59 AM [facility] Glucose 93 70 - 100 mg/dL LAB CHEMISTRY METHOD 05/08/2024 11:59 AM [facility] BUN 34(H) 5 - 25 mg/dL LAB CHEMISTRY METHOD 05/08/2024 11:59 AM [facility] Creatinine 1.51(H) 0.50 - 1.10 mg/dL LAB CHEMISTRY METHOD 05/08/2024 11:59 AM [facility] eGFR 39(L) >=60 mL/min/1. 73m2 LAB CHEMISTRY METHOD 05/08/2024 11:59 AM [facility] Comment:Calculation based on the Chronic Kidney Disease Epidemiology Collaboration (CKD-EPI) equation refit without adjustment for race. BUN/Creatinine Ratio 22.5 LAB CHEMISTRY METHOD 05/08/2024 11:59 AM [facility] Calcium 9.3 8.5 - 10.5 mg/dL LAB CHEMISTRY METHOD 05/08/2024 11:59 AM EDT [facility] Blood Venous blood specimen / Unknown Venipuncture / Unknown 05/08/2024 7:53 AM EDT 05/08/2024 10:40 AM EDT us Gilson Davidson MD LAB BLOOD ORDERABLES Final Resul t [facility] [address] [place] [address], * (ABNORMAL) Complete blood count (05/08/2024 7:53 AM EDT) WBC 7.9 4.8 - 10.8 K/mcL LAB HEMETOLOGY METHOD 05/08/2024 10:[facility] RBC 4.40 3.80 - 4.80 M/[facility] LAB HEMETOLOGY METHOD 05/08/2024 10:57 AM EDT [facility] Hemoglobin 12.0 11.5 - 16.0 g/dL LAB HEMETOLOGY METHOD 05/08/2024 10:57 AM T [facility] Hematocrit 37.3 35.0 - 47.0 % LAB HEMETOLOGY METHOD 05/08/2024 10:57 AM [facility] MCV 85.7 79.0 - 98.0 FL LAB HEMETOLOGY METHOD 05/08/2024 10:57 AM EDT [facility] MCH 27.6 27.0 - 32.0 pcg LAB HEMETOLOGY METHOD 05/08/2024 10:57 AM [facility] MCHC 32.2 32.0 - 37.0 g/dL LAB HEMETOLOGY METHOD 05/08/2024 10:57 AM [facility] RDW 15.8(H) 11.0 - 15.0 % LAB HEMETOLOGY METHOD 05/08/2024 10:57 AM [facility] Platelets 425(H) 130 - 400 K/mcL LAB HEMETOLOGY METHOD 05/08/2024 10:57 AM EDT [facility] MPV 9.8 7.0 - 11.0 FL LAB HEMETOLOGY METHOD 05/08/2024 10:57 AM EDT [facility] NRBC 0.0 <1.0 % LAB HEMETOLOGY METHOD 05/08/2024 10:57 AM EDT [facility] NRBC Absolute 0.00 <0.10 K/mcL LAB HEMETOLOGY METHOD 05/08/2024 10:57 AM EDT [facility] Blood Venous blood specimen / Unknown Venipuncture / Unknown 05/08/2024 7:53 AM EDT 05/08/2024 10:40 AM EDT us Gilson Davidson MD LAB BLOOD ORDERABLES Final Resul t [facility] [address] [place] [address], [place] [phone] * (ABNORMAL) Sedimentation rate (05/08/2024 7:53 AM EDT) [facility] Sed Rate 95(H) 0 - 30 mm/hr LAB HEMETOLOGY METHOD 05/08/2024 11:10 AM EDT [facility] Blood Venous blood specimen / Unknown Venipuncture / Unknown 05/08/2024 7:53 AM EDT 05/08/2024 10:40 AM EDT us Gilson Davidson MD LAB BLOOD ORDERABLES Final Resul t [facility] [address] [place] [address], [place] [phone] * C-reactive protein (05/08/2024 7:53 AM EDT) C-Reactive Protein 0.37 <=0.50 mg/dL LAB CHEMISTRY METHOD 05/08/2024 11:59 AM EDT [facility] Blood Venous blood specimen / Unknown Venipuncture / Unknown 05/08/2024 7:53 AM EDT 05/08/2024 10:40 AM EDT us Gilson Davidson MD LAB BLOOD ORDERABLES Final Resul t [facility] [address] [place] [address], [place] [phone] documented in this encounter Visit Diagnoses Diagnosis Type 2 diabetes mellitus without complications (CMS/HCC V24, CMS/HCC V28) Essential (primary) hypertension Unspecified essential hypertension documented in this encounter Care Teams Clinical Psychology Professor Relationship Specialty Start Date End Date Kristin Bellamy MD [address] [place] [address] PCP - General Internal Medicine 11/29/19 documented as of this encounter
--- OUTSIDE RECORDS SUMMARY | 2025-01-18 11:12 | XMS_ITS | Encounter Summary ---
Author Organization [facility] Address [address] [place] [address] Care Team Providers Care Warehouse Receiving Clerk Name Role Phone Kristin Bellamy MD Primary Care Provider [phone] Encounter Details Date Type Department Care Team (Late st Contact Info) Description 05/28/2024 Lab Requisition [facility] - Main Lab [address] [facility] [place] [address] Gilson Davidson MD [address] [place] [phone] Type 2 diabetes mellitus without complications [...] EDT Type 2 diabetes mellitus without complications ([facility] V24, [facility] V28) Essential (primary) hypertension BASIC METABOLIC PANEL Routine 05/29/2024 5:41 AM EDT Type 2 diabetes mellitus without complications ([facility] V24, [facility] V28) Essential (primary) hypertension documented in this encounter Results * (ABNORMAL) Basic metabolic panel (05/29/2024 5:41 AM EDT) Pathologist [facility] Sodium 138 133 - 145 mmol/L LAB CHEMISTRY METHOD 05/29/2024 12:42 PM [facility] Potassium 4.3 3.5 - 5.5 mmol/L LAB CHEMISTRY METHOD 05/29/2024 12:42 PM [facility] Chloride 104 96 - 110 mmol/L LAB CHEMISTRY METHOD 05/29/2024 12:42 PM [facility] CO2 27 21 - 32 mmol/L LAB CHEMISTRY METHOD 05/29/2024 12:42 PM [facility] Anion Gap 7 3 - 11 LAB CHEMISTRY METHOD 05/29/2024 12:42 PM [facility] Glucose 69(L) 70 - 100 mg/dL LAB CHEMISTRY METHOD 05/29/2024 12:42 PM [facility] BUN 32(H) 5 - 25 mg/dL LAB CHEMISTRY METHOD 05/29/2024 12:42 PM [facility] Creatinine 1.35(H) 0.50 - 1.10 mg/dL LAB CHEMISTRY METHOD 05/29/2024 12:42 PM [facility] eGFR 45(L) >=60 mL/min/1. 73m2 LAB CHEMISTRY METHOD 05/29/2024 12:42 PM [facility] Comment:Calculation based on the Chronic Kidney Disease Epidemiology Collaboration (CKD-EPI) equation refit without adjustment for race. BUN/Creatinine Ratio 23.7 LAB CHEMISTRY METHOD 05/29/2024 12:42 PM EDT [facility] Calcium 9.0 8.5 - 10.5 mg/dL LAB CHEMISTRY METHOD 05/29/2024 12:42 PM T [facility] Blood Venous blood specimen / Unknown Venipuncture / Unknown 05/29/2024 5:41 AM EDT 05/29/2024 11:16 AM EDT us Gilson Davidson MD LAB BLOOD ORDERABLES Final Resul t [facility] [address] [place] [address], [place] [phone] * (ABNORMAL) Complete blood count (05/29/2024 5:41 AM EDT) WBC 6.5 4.8 - 10.8 K/mcL LAB HEMETOLOGY METHOD 05/29/2024 11:30 AM [facility] RBC 4.20 3.80 - 4.80 M/mcL LAB HEMETOLOGY METHOD 05/29/2024 11:30 AM [facility] Hemoglobin 11.6 11.5 - 16.0 g/dL LAB HEMETOLOGY METHOD 05/29/2024 11:30 AM [facility] Hematocrit 36.1 35.0 - 47.0 % LAB HEMETOLOGY METHOD 05/29/2024 11:[facility] MCV 87.0 79.0 - 98.0 FL LAB HEMETOLOGY METHOD 05/29/2024 11:30 AM EDT [facility] MCH 28.0 27.0 - 32.0 pcg LAB HEMETOLOGY METHOD 05/29/2024 11:30 AM [facility] MCHC 32.1 32.0 - 37.0 g/dL LAB HEMETOLOGY METHOD 05/29/2024 11:30 AM EDT [facility] RDW 15.5(H) 11.0 - 15.0 % LAB HEMETOLOGY METHOD 05/29/2024 11:30 AM EDT [facility] Platelets 296 130 - 400 K/mcL LAB HEMETOLOGY METHOD 05/29/2024 11:30 AM EDT [facility] MPV 10.4 7.0 - 11.0 FL LAB HEMETOLOGY METHOD 05/29/2024 11:30 AM EDT [facility] NRBC 0.0 <1.0 % LAB HEMETOLOGY METHOD 05/29/2024 11:30 AM EDT [facility] NRBC Absolute 0.00 <0.10 K/mcL LAB HEMETOLOGY METHOD 05/29/2024 11:30 AM EDT [facility] Blood Venous blood specimen / Unknown Venipuncture / Unknown 05/29/2024 5:41 AM EDT 05/29/2024 11:16 AM EDT us Gilson Davidson MD LAB BLOOD ORDERABLES Final Resul t Performing Organization Address City/[facility]/ZIP Co de Phone Number [facility] [address] [place] [address], * (ABNORMAL) Sedimentation rate (05/29/2024 5:41 AM EDT) Sed Rate 61(H) 0 - 30 mm/hr LAB HEMETOLOGY METHOD 05/29/2024 11:36 AM EDT [facility] Blood Venous blood specimen / Unknown Venipuncture / Unknown 05/29/2024 5:41 AM EDT 05/29/2024 11:16 AM EDT us Gilson Davidson MD LAB BLOOD ORDERABLES Final Resul t [facility] [address] [place] [address], [place] [phone] * C-reactive protein (05/29/2024 5:41 AM EDT) C-Reactive Protein <0.29 <=0.50 mg/dL LAB CHEMISTRY METHOD 05/29/2024 12:42 PM EDT [facility] Blood Venous blood specimen / Unknown Venipuncture / Unknown 05/29/2024 5:41 AM EDT 05/29/2024 11:16 AM EDT us Gilson Davidson MD LAB BLOOD ORDERABLES Final Resul t [facility] [address] [place] [address], [place] [phone] documented in this encounter Visit Diagnoses Diagnosis Type 2 diabetes mellitus without complications (CMS/HCC V24, CMS/HCC V28) Essential (primary) hypertension Unspecified essential hypertension documented in this encounter Care Teams Warehouse Receiving Clerk Relationship Specialty Start Date End Date Kristin Bellamy MD [address] PCP - General Internal Medicine 11/29/19 documented as of this encounter
--- OUTSIDE RECORDS SUMMARY | 2025-01-18 11:12 | XMS_ITS | Encounter Summary ---
Author Organization [facility] Address [address] [place] [address] Care Team Providers Care Room Worker Name Role Phone Kristin Bellamy MD Primary Care Provider Encounter Details Date Type Department Care Team (Late st Contact Info) Description 04/09/2024 Lab Requisition [facility] - Main Lab 299 [facility] [place] [address] Gilson Davidson MD [address] [place] [phone] Essential (primary) hypertension; Hypothyroidism, unspecified; Type [...] LAB CHEMISTRY METHOD 04/09/2024 1:[address] [facility] Mean Bld Glu Estim. 177 mg/dL LAB CHEMISTRY METHOD 04/09/2024 1:[address] [facility] Blood Venous blood specimen / Unknown Venipuncture / Unknown 04/09/2024 6:31 AM EST 04/09/2024 9:10 AM EST Gilson Davidson MD LAB BLOOD ORDERABLES Final Resul t [facility] [address] [place] [address], * Thyroid stimulating hormone with reflex to free t4 and free t3 (04/09/2024 6:31 AM EST) TSH 1.29 0.40 - 4.00 mcIU/mL LAB CHEMISTRY METHOD 04/09/2024 11:[address] [facility] Blood Venous blood specimen / Unknown Venipuncture / Unknown 04/09/2024 6:31 AM EST 04/09/2024 9:10 AM EST Gilson Davidson MD LAB BLOOD ORDERABLES Final Resul t [facility] [address] [place] [address], * (ABNORMAL) Basic metabolic panel (04/09/2024 6:31 AM EST) Sodium 142 133 - 145 mmol/L LAB CHEMISTRY METHOD 04/09/2024 11:27 AM [facility] Potassium 4.0 3.5 - 5.5 mmol/L LAB CHEMISTRY METHOD 04/09/2024 11:27 AM [facility] Chloride 109 96 - 110 mmol/L LAB CHEMISTRY METHOD 04/09/2024 11:27 AM [facility] CO2 24 21 - 32 mmol/L LAB CHEMISTRY METHOD 04/09/2024 11:27 AM [facility] Anion Gap 9 3 - 11 LAB CHEMISTRY METHOD 04/09/2024 11:27 AM [facility] Glucose 96 70 - 100 mg/dL LAB CHEMISTRY METHOD 04/09/2024 11:27 AM [facility] BUN 18 5 - 25 mg/dL LAB CHEMISTRY METHOD 04/09/2024 11:27 AM [facility] Creatinine 1.26(H) 0.50 - 1.10 mg/dL LAB CHEMISTRY METHOD 04/09/2024 11:27 AM [facility] eGFR 48(L) >=60 mL/min/1. 73m2 LAB CHEMISTRY METHOD 04/09/2024 11:27 AM [facility] Comment:Calculation based on the Chronic Kidney Disease Epidemiology Collaboration (CKD-EPI) equation refit without adjustment for race. BUN/Creatinine Ratio 14.3 LAB CHEMISTRY METHOD 04/09/2024 11:27 AM [facility] Calcium 8.9 8.5 - 10.5 mg/dL LAB CHEMISTRY METHOD 04/09/2024 11:27 AM [facility] Blood Venous blood specimen / Unknown Venipuncture / Unknown 04/09/2024 6:31 AM EST 04/09/2024 9:10 AM EST us Gilson Davidson MD LAB BLOOD ORDERABLES Final Resul t [facility] [address] [place] [address], * (ABNORMAL) Complete blood count (04/09/2024 6:31 AM EST) WBC 9.4 4.8 - 10.8 K/mcL LAB HEMETOLOGY METHOD 04/09/2024 10:30 AM [facility] RBC 3.60(L) 3.80 - 4.80 M/mcL LAB HEMETOLOGY METHOD 04/09/2024 10:30 AM [facility] Hemoglobin 9.5(L) 11.5 - 16.0 g/dL LAB HEMETOLOGY METHOD 04/09/2024 10:30 AM [facility] Hematocrit 30.7(L) 35.0 - 47.0 % LAB HEMETOLOGY METHOD 04/09/2024 10:30 AM [facility] MCV 84.3 79.0 - 98.0 FL LAB HEMETOLOGY METHOD 04/09/2024 10:30 AM [facility] MCH 26.1(L) 27.0 - 32.0 pcg LAB HEMETOLOGY METHOD 04/09/2024 10:30 AM [facility] MCHC 30.9(L) 32.0 - 37.0 g/dL LAB HEMETOLOGY METHOD 04/09/2024 10:30 AM [facility] RDW 14.5 11.0 - 15.0 % LAB HEMETOLOGY METHOD 04/09/2024 10:30 AM [facility] Platelets 445(H) 130 - 400 K/mcL LAB HEMETOLOGY METHOD 04/09/2024 10:[address] [facility] MPV 9.4 7.0 - 11.0 FL LAB HEMETOLOGY METHOD 04/09/2024 10:[address] [facility] NRBC 0.0 <1.0 % LAB HEMETOLOGY METHOD 04/09/2024 10:[address] [facility] NRBC Absolute 0.00 <0.10 K/mcL LAB HEMETOLOGY METHOD 04/09/2024 10:[address] [facility] Blood Venous blood specimen / Unknown Venipuncture / Unknown 04/09/2024 6:31 AM EST 04/09/2024 9:10 AM EST us Gilson Davidson MD LAB BLOOD ORDERABLES Final Resul t [facility] [address] [place] [address], [place] [phone] documented in this encounter Visit Diagnoses Diagnosis Essential (primary) hypertension Unspecified essential hypertension Hypothyroidism, unspecified Type 2 diabetes mellitus without complications (CMS/HCC V24, CMS/HCC V28) Dependence on renal dialysis (CMS/HCC V24) Renal dialysis status documented in this encounter Care Teams Room Worker Relationship Specialty Start Date End Date Kristin Bellamy MD [facility] [address] PCP - General Internal Medicine 11/29/19 documented as of this encounter
--- OUTSIDE RECORDS SUMMARY | 2025-01-18 11:12 | XMS_ITS | Encounter Summary ---
Author Organization [facility] Address [address] [place] [address] Care Team Providers Care Infection Prevention Specialist Name Role Phone Kristin Bellamy MD Primary Care Provider [phone] Encounter Details Date Type Department Care Team (Late st Contact Info) Description 02/13/2024 Lab Requisition [facility] - Main Lab [address] [facility] [place] [address] Gilson Davidson MD [address] [place] [address] [address] [facility] [id number] Type 2 diabetes mellitus [...] LAB HEMETOLOGY METHOD 02/15/2024 10:39 AM EST [facility] Blood Venous blood specimen / Unknown Venipuncture / Unknown 02/15/2024 6:19 AM EST 02/15/2024 9:41 AM EST Gilson Davidson MD LAB BLOOD ORDERABLES Final Resul t Performing Organization Address City/[facility]/ZIP Co de Phone Number [facility] [address] [place] [address], [place] [phone] * C-reactive protein (02/15/2024 6:19 AM EST) [facility] C-Reactive Protein <0.29 <=0.50 mg/dL LAB CHEMISTRY METHOD 02/15/2024 11:53 AM EST [facility] Blood Venous blood specimen / Unknown Venipuncture / Unknown 02/15/2024 6:19 AM EST 02/15/2024 9:40 AM EST Gilson Davidson MD LAB BLOOD ORDERABLES Final Resul t [facility] [address] [place] [address], [place] [phone] * (ABNORMAL) Basic metabolic panel (02/15/2024 6:19 AM EST) Sodium 139 133 - 145 mmol/L LAB CHEMISTRY METHOD 02/15/2024 11:53 AM EST [facility] Potassium 4.5 3.5 - 5.5 mmol/L LAB CHEMISTRY METHOD 02/15/2024 11:53 AM [facility] Chloride 109 96 - 110 mmol/L LAB CHEMISTRY METHOD 02/15/2024 11:53 AM [facility] CO2 28 21 - 32 mmol/L LAB CHEMISTRY METHOD 02/15/2024 11:53 AM [facility] Anion Gap 2(L) 3 - 11 LAB CHEMISTRY METHOD 02/15/2024 11:53 AM [facility] Glucose 192(H) 70 - 100 mg/dL LAB CHEMISTRY METHOD 02/15/2024 11:53 AM [facility] BUN 24 5 - 25 mg/dL LAB CHEMISTRY METHOD 02/15/2024 11:53 AM [facility] Creatinine 1.17(H) 0.50 - 1.10 mg/dL LAB CHEMISTRY METHOD 02/15/2024 11:53 AM [facility] eGFR 53(L) >=60 mL/min/1. 73m2 LAB CHEMISTRY METHOD 02/15/2024 11:53 AM [facility] Comment:Calculation based on the Chronic Kidney Disease Epidemiology Collaboration (CKD-EPI) equation refit without adjustment for race. BUN/Creatinine Ratio 20.5 LAB CHEMISTRY METHOD 02/15/2024 11:53 AM [facility] Calcium 8.8 8.5 - 10.5 mg/dL LAB CHEMISTRY METHOD 02/15/2024 11:53 AM [facility] Blood Venous blood specimen / Unknown Venipuncture / Unknown 02/15/2024 6:19 AM EST 02/15/2024 9:40 AM EST us Gilson Davidson MD LAB BLOOD ORDERABLES Final Resul t [facility] [address] [place] [address], [place] [phone] * (ABNORMAL) Complete blood count (02/15/2024 6:19 AM EST) [facility] WBC 6.7 4.8 - 10.8 K/mcL LAB HEMETOLOGY METHOD 02/15/2024 10:56 AM [facility] RBC 3.80 3.80 - 4.80 M/mcL LAB HEMETOLOGY METHOD 02/15/2024 10:56 AM [facility] Hemoglobin 10.6(L) 11.5 - 16.0 g/dL LAB HEMETOLOGY METHOD 02/15/2024 10:56 AM [facility] Hematocrit 34.4(L) 35.0 - 47.0 % LAB HEMETOLOGY METHOD 02/15/2024 10:56 AM [facility] MCV 89.8 79.0 - 98.0 FL LAB HEMETOLOGY METHOD 02/15/2024 10:56 AM [facility] MCH 27.7 27.0 - 32.0 pcg LAB HEMETOLOGY METHOD 02/15/2024 10:56 AM [facility] MCHC 30.8(L) 32.0 - 37.0 g/dL LAB HEMETOLOGY METHOD 02/15/2024 10:56 AM [facility] RDW 14.1 11.0 - 15.0 % LAB HEMETOLOGY METHOD 02/15/2024 10:56 AM [facility] Platelets 334 130 - 400 K/mcL LAB HEMETOLOGY METHOD 02/15/2024 10:56 AM [facility] MPV 10.7 7.0 - 11.0 FL LAB HEMETOLOGY METHOD 02/15/2024 10:56 AM [facility] NRBC 0.0 <1.0 % LAB HEMETOLOGY METHOD 02/15/2024 10:56 AM [facility] NRBC Absolute 0.00 <0.10 K/mcL LAB HEMETOLOGY METHOD 02/15/2024 10:56 AM EST [facility] Blood Venous blood specimen / Unknown Venipuncture / Unknown 02/15/2024 6:19 AM EST 02/15/2024 9:41 AM EST us Gilson Davidson MD LAB BLOOD ORDERABLES Final Resul t [facility] [address] [place] [address], documented in this encounter Visit Diagnoses Diagnosis Type 2 diabetes mellitus without complications (CMS/HCC V24, CMS/HCC V28) Essential (primary) hypertension Unspecified essential hypertension documented in this encounter Care Teams Infection Prevention Specialist Relationship Specialty Start Date End Date Kristin Bellamy MD [address] [facility] [address] [place], [place] PCP - General Internal Medicine 11/29/19 documented as of this encounter
[2025-01-18 11:19] LABS: MANUAL DIFF FLAG NO
[2025-01-18 11:21] LABS: Hematocrit 31.4 % (37.0-47.0); Hemoglobin 10.2 g/dl (12.0-16.0); Imm Gran Abs Auto 0.28 X10*3/uL (0.00-0.03); Imm Gran Pct Auto 2.0 % (0.0-0.4); Lymphocytes Absolute Auto 1.4 X10*3/uL (1.2-4.9); Mean Corpuscular HGB Conc 32.5 g/dl (31.0-35.0); Mean Corpuscular Hemoglobin 29.6 pg (27.0-33.0); Mean Corpuscular Volume 91.0 fL (80.0-98.0); NRBC Abs Auto 0.000 X10*3/uL (0.0-0.012); NRBC Pct Auto 0.0 /100WBC (0.0-0.2); Platelet Count 297 X10*3/uL (160-400); Red Blood Count 3.45 X10*6/uL (4.20-5.50); White Blood Count 13.7 X10*3/uL (4.8-10.8)
[2025-01-18 11:45] LABS: Alanine Aminotransferase 33 U/L (0-31); Albumin Level 4.0 g/dL (3.5-5.0); Alkaline Phosphatase 71 U/L (39-117); Anion Gap 11 (12-20); Aspartate Amino Transferase 35 U/L (5-31); Blood Urea Nitrogen 39 mg/dL (9-16); Calcium 8.8 mg/dL (8.4-10.2); Carbon Dioxide 27 mmol/L (22-29); Chloride 107 mmol/L (96-108); Creatinine Clr Calc Pharmacy 35.2; Estimated Glomerular Filt Rate 34; Magnesium 2.2 mg/dL (1.6-2.6); Potassium 4.9 mmol/L (3.3-5.1); Sodium 140 mmol/L (135-145); Total Protein 7.3 g/dL (6.5-8.0)
[2025-01-18 11:55] LABS: Troponin-I High Sensitivity < 2.7 ng/L (<3.5-17.0)
[2025-01-18 12:02] LABS: Resp Syncy Virus RNA Qual PCR NEGATIVE (Negative); SARS COV2 PCR INHOUSE NEGATIVE (Negative)
[2025-01-18 13:48] LABS: Free T4 (Free Thyroxine) 1.00 ng/dL (0.71-1.85)
[2025-01-18 14:34] VITALS: BP 193/82; PULSE 77; RESP 16; TEMP 36.8; O2SAT 93
[2025-01-18 15:50] VITALS: BP 163/72; PULSE 72; RESP 16; TEMP 36.6; O2SAT 94
--- NOTE | 2025-01-18 15:50 | PC.NURSE ---
ambulance transport here now to bring pt back [facility]
== END 2025-01-18 15:53 | disposition skilled nursing facility (03) ==
PROVIDERS: Registered Nurse Emergency; Emergency Provider Emergency Medicine; PCP Internal Medicine
DX: M79.651 Pain in right thigh (principal); S09.90XA Unspecified injury of head, initial encounter; W06.XXXA Fall from bed, initial encounter; Y93.9 Activity, unspecified; Y92.003 Bedroom of unspecified non-institutional (private) residence as the place of occurrence of the external cause; Z03.818 Encounter for observation for suspected exposure to other biological agents ruled out; R42 Dizziness and giddiness; I12.9 Hypertensive chronic kidney disease with stage 1 through stage 4 chronic kidney disease, or unspecified chronic kidney disease; E11.22 Type 2 diabetes mellitus with diabetic chronic kidney disease; N18.9 Chronic kidney disease, unspecified; Z87.891 Personal history of nicotine dependence
CPT/HCPCS: 36415; 70450; 72125; 73552; 80053; 83735; 84439; 84443; 84484; 85025; 87637; 93005; 99284; 99285

== ENCOUNTER → 2025-01-18 10:35 | Outpatient (BNV) | payer BC, MEDICAID, SELFPAY | PROVIDERS: Emergency Provider Emergency Medicine; PCP Internal Medicine; Visit Provider Radiology Diagnostic Radiology | DX: S09.90XA Unspecified injury of head, initial encounter (principal); M25.561 Pain in right knee; Z04.3 Encounter for examination and observation following other accident | CPT/HCPCS: 70450; 72125; 73552 ==

== ENCOUNTER → 2025-01-18 10:38 | Outpatient (BNV) | payer BC, MEDICAID, SELFPAY | PROVIDERS: Emergency Provider Emergency Medicine; PCP Internal Medicine; Visit Provider Internal Medicine | DX: R94.31 Abnormal electrocardiogram [ECG] [EKG] (principal); R42 Dizziness and giddiness | CPT/HCPCS: 93010 ==